=== PATIENT | female | born 1945 | race Caucasian/White ===

== ENCOUNTER 2017-03-31 09:53 | Inpatient (IN) | payer MEDICARE, MEDICAID ==
[~2017-03-31] VITALS: Ht 160 cm; Wt 107.7 kg
[2017-03-31] VITALS (30 sets, daily range): BP systolic 85–125; BP diastolic 22–101
[2017-03-31 10:27] LABS: APPEARANCE,URINE SLIGHTLY CLOUDY; KETONES,URINE NEGATIVE (NEGATIVE); LEUKOCYTE ESTERASE ,URINE 3+ (NEGATIVE); NITRITE,URINE NEGATIVE (NEGATIVE); PH,URINE 8 (4.5-8.0); PROTEIN,URINE 3+ (NEGATIVE); UROBILINOGEN,URINE 1 MG/DL (0.0-1.0)
[2017-03-31] MEDS ORDERED: Acetaminophen 650 MG SUPP RECTAL ONE ×2 (10:28→10:30)
[2017-03-31] MEDS ORDERED: VALPROIC ACID250 MG GT (10:37)
[2017-03-31] MEDS ORDERED: LEVOTHYROXINE50 MCG GT (10:37)
[2017-03-31] MEDS ORDERED: FUROSEMIDE20 M1 GT (10:37)
[2017-03-31] MEDS ORDERED: METOCLOPRA10 MG/10 M GT (10:37)
[2017-03-31] MEDS ORDERED: VIMPAT50 MG GT (10:37)
[2017-03-31] MEDS ORDERED: FAMOTIDINE20 MG GT (10:37)
[2017-03-31] MEDS ORDERED: FLONASE ALLERG9.9 ML NS (10:37)
--- NOTE | 2017-03-31 10:37 | Emergency Room Report ---
History of Present Illness General Chief Complaint: Altered Level of Consciousness Source: Medical Record, EMS Present Illness HPI 72-year-old female presents ED for evaluation. Per EMS patient noted to be more altered and usual this morning with fever and a low O2 saturation on room air. Patient is placed on nonrebreather. Patient is nonverbal at baseline. Has history of encephalopathy and quadriplegia. Patient has history of chronic hypoxia and respiratory failure with history of bilateral pneumonias. Upon arrival patient is a provide any additional history. No other aggravating relieving factors. No other associated symptoms Allergies: Coded Allergies: CEFTRIAXONE (Verified Allergy, Unknown, 03/31/17) PENICILLINS (Verified Allergy, Unknown, 03/31/17) SULFA (SULFONAMIDE ANTIBIOTICS) (Verified Allergy, Unknown, 03/31/17) TAZOBACTAM (Verified Allergy, Unknown, 03/31/17) Patient History Past Medical History: other - quadriplegia, encephalopathy Past Surgical History: other - Gtube Pertinent Family History: none Social History: Denies: alcohol use, drug use, smoking Last Menstrual Period: na Now: No Immunizations: UTD Reviewed Nursing Documentation: PMH: Agreed, PSxH: Agreed Nursing Documentation-PMH Past Medical History: No History, Except For Hx Gastrointestinal Problems: Yes - gtube, CDIFF Hx Neurological Problems: Yes - quadriplegia, encephalopathy, multiple sclerosis Hx Seizures: Yes Review of Systems All Other Systems: negative except mentioned in HPI Physical Exam Vital Signs Date Time Temp Pulse Resp B/P Pulse Ox O2 Delivery O2 Flow Rate FiO2 03/31/17 09:48 125 42 133/98 95 Non-Rebreather 03/31/17 10:00 60 Sp02 EP Interpretation: reviewed, normal General Appearance: mild distress, lethargic Head: normocephalic Eyes: bilateral eye PERRL, bilateral eye normal inspection ENT: normal ENT inspection Neck: normal inspection Respiratory: accessory muscle use, crackles Cardiovascular #1: tachycardia Gastrointestinal: normal inspection, other - gtube Rectal: deferred Genitourinary: no CVA tenderness Musculoskeletal: normal inspection Neurologic: other - nonverbal. altered Psychiatric: other - nonverbal. altered Skin: normal inspection Lymphatic: normal inspection Procedures Critical Care Time Critical Care Time i. I feel this is a highly complex case requiring extensive working including EKG/Rhythm strip, Xray/CT/US, Blood/urine lab work, repeat exams while in ED, and administration of strong opiates/narcotics for pain control, admission to hospital or close patient follow up. Total time: 30 min bedside evaluation and treatment excludes procedures (EKG). Reason for critical care: hypoxic, AMS, hypotensive Possible complications: hypotension, hypertension, IL, shock, arrhythmias, metabolic acidosis, end organ damage, respiratory failure. Interventions: labs, ivfs, ekg, cxr, bipap. abx. central line, pressors Course: Patient brought in respiratory distress. History of hypoxia. Patient placed on BiPAP. ABG shows significant hypoxia. Lactic acid elevated. UA positive. Despite IV fluid bolus patient remains hypotensive. Central line placed. Pressors started. Antibiotics given Consultations: nursing staff, EMS, family Performed by: Dr Vernon Tolerated well condition = critical j. because of unstable vital signs this patient had a condition that could potentially threaten life or limb. I feel this is a critical patient who required my full attention while patient was considered critical. Total Critical Care Time excluding procedures was greater than 35 minutes Central Line Central Line : Consent: Emergent Central Line Lumen: triple Maximal Sterile Barrier Tech: yes cap, yes mask, yes sterile gown, yes sterile gloves, yes large sterile sheet, yes hand hygiene, yes chlorhexidine prep Central Line Postion: femoral (R) Anesthesia: Lidocaine Complications: none Central Line Post Position: sutured, good blood return Attempts: One Patient Tolerated: Well Complications: None Medical Decision Making Diagnostic Impression: Primary Impression: Hypoxia Additional Impressions: Septic shock UTI (urinary tract infection) Qualified Codes: N39.0 - Urinary tract infection, site not specified Pneumonia Qualified Codes: J18.1 - Lobar pneumonia, unspecified organism Altered level of consciousness ARF (acute renal failure) Qualified Codes: N17.9 - Acute kidney failure, unspecified ER Course Hospital Course 72-year-old F presenting to ED with respiratory distress, altered Differential diagnoses include: Pneumonia, CHF exacerbation, pneumothorax, fluid overload Clinical course Patient placed on stretcher. On court monitor with hypoxia on room air and tachycardia. After initial history and physical, I ordered BIPAP. I ordered labs, IV fluids, EKG, chest x-ray, blood cultures, UA. Labs -no leukocytosis, hemoglobin/hematocrit stable, Na high, BUN/Cr elevated, lactate > 4, troponins negative CXR - R midlung infiltrate EKG - sinus tachycardia, no acute changes interpreted by me ABG shows hypoxia abx given. Despite fluid boluses patient remained hypotensive. Central line place. Pressor started Case discussed with Dr. Recio and he agreed to the patient to his service for further care and support I feel this is a highly complex case requiring extensive working including EKG/ Rhythm strip, Xray/CT/US, Blood/urine lab work, repeat exams while in ED, and administration of strong opiates/narcotics for pain control, admission to hospital or close patient follow up. Diagnosis - hypoxia, septic shock, UTI, pneumonia, ALOC, ARF Patient admitted to ICU in critical condition Labs Test 03/31/17 10:01 03/31/17 10:14 03/31/17 10:43 03/31/17 13:00 Urine Color Yellow Urine Appearance Slightly cloudy Urine pH 8 (4.5-8.0) Urine Specific [place] 1.020 (1.005-1.035) Urine Protein 3+ (NEGATIVE) Urine Glucose (UA) Negative (NEGATIVE) Urine Ketones Negative (NEGATIVE) Urine Occult Blood 4+ (NEGATIVE) Urine Nitrite Negative (NEGATIVE) Urine Bilirubin Negative (NEGATIVE) Urine Urobilinogen 1 MG/DL (0.0-1.0) Urine Leukocyte Esterase 3+ (NEGATIVE) Urine RBC 10-15 /HPF (0 - 2) Urine WBC Tntc /HPF (0 - 2) Urine Squamous Epithelial Cells Few /LPF (NONE/OCC) Urine Bacteria Many /HPF (NONE) White Blood Count 6.5 K/UL (4.8-10.8) Red Blood Count 4.33 M/UL (4.20-5.40) Hemoglobin 14.7 G/DL (12.0-16.0) Hematocrit 48.7 % (37.0-47.0) Mean Corpuscular Volume 112 FL (80-99) Mean Corpuscular Hemoglobin 33.9 PG (27.0-31.0) Mean Corpuscular Hemoglobin Concent 30.2 G/DL (32.0-36.0) Red Cell Distribution Width 14.8 % (11.6-14.8) Platelet Count 140 K/UL (150-450) Mean Platelet Volume 16.5 FL (6.5-10.1) Neutrophils (%) (Auto) % (45.0-75.0) Lymphocytes (%) (Auto) % (20.0-45.0) Monocytes (%) (Auto) % (1.0-10.0) Eosinophils (%) (Auto) % (0.0-3.0) Basophils (%) (Auto) % (0.0-2.0) Differential Total Cells Counted 100 Neutrophils % (Manual) 56 % (45-75) Lymphocytes % (Manual) 31 % (20-45) Monocytes % (Manual) 8 % (1-10) Eosinophils % (Manual) 0 % (0-3) Basophils % (Manual) 0 % (0-2) Band Neutrophils 5 % (0-8) Nucleated Red Blood Cells 2 /100 WBC Platelet Estimate Decreased Platelet Morphology Normal Macrocytosis 2+ Sodium Level 166 mEQ/L (135-145) Potassium Level 3.4 mEQ/L (3.4-4.9) Chloride Level 117 mEQ/L (98-107) Carbon Dioxide Level 33 mEQ/L (20-30) Anion Gap 16 (5-15) Blood Urea Nitrogen 112 mg/dL (7-23) Creatinine 2.2 mg/dL (0.5-0.9) Estimat Glomerular Filtration Rate mL/min (>60) Glucose Level 201 mg/dL (74-106) Lactic Acid Level 4.60 mmol/L (0.66-2.22) 3.60 mmol/L (0.66-2.22) Calcium Level 9.2 mg/dL (8.6-10.2) Total Bilirubin 0.4 mg/dL (0.0-1.2) Aspartate Amino Transf (AST/SGOT) 35 U/L (5-40) Alanine Aminotransferase (ALT/SGPT) 11 U/L (3-33) Alkaline Phosphatase 34 U/L (35-104) Total Creatine Kinase 451 U/L (26-140) Creatine Kinase MB < 1.5 ng/mL (< 3.8) Creatine Kinase MB Relative Index Troponin I < 0.30 ng/mL (<=0.30) Pro-B-Type Natriuretic Peptide 2610 pg/mL (0-125) Total Protein 8.1 g/dL (6.6-8.7) Albumin 3.1 g/dL (3.5-5.2) Globulin 5.0 g/dL Albumin/Globulin Ratio 0.6 (1.0-2.7) Arterial Blood pH 7.482 (7.350-7.450) Arterial Blood Partial Pressure CO2 39.5 mmHg (35.0-45.0) Arterial Blood Partial Pressure O2 68.1 mmHg (75.0-100.0) Arterial Blood HCO3 28.9 mmol/L (22.0-26.0) Arterial Blood Oxygen Saturation 93.2 % (92.0-98.0) Arterial Blood Base Excess 5.1 Neil Test Positive EKG Diagnostic Results Rate: tachycardiac Rhythm: NSR ST Segments: no acute changes ASA given to the pt in ED: No Rhythm Strip Diag. Results EP Interpretation: yes Rhythm: NSR, no PVC's, no ectopy Chest X-Ray Diagnostic Results Chest X-Ray Ordered: Yes # of Views/Limited/Complete: 1 View Interpretation: no pneumothorax, no acute cardiopulmonary disease, other - R upper infiltrate. bilateral effusion Indication: Shortness of Breath Impression: Other - pneumonia, effusion Date Electronically Signed: Mar 31, 2017 Time Electronically Signed: 10:36 Interpreting ER Physician: Ze Vernon MD Last Vital Signs Date Time Temp Pulse Resp B/P Pulse Ox O2 Delivery O2 Flow Rate FiO2 03/31/17 10:00 124 45 Bi-pap 03/31/17 10:00 60 03/31/17 09:55 121/80 94 Status: improved Disposition: ADMITTED INPATIENT Condition: Critical Referrals: NON PHYSICIAN (PCP) ZE VERNON M.D. Mar 31, 2017 10:37
[2017-03-31] MEDS ORDERED: IMODIUM2 MG/10 ML GT (10:38)
[2017-03-31] MEDS ORDERED: ALBUTEROL2.5 MG/3 M INH (10:38)
[2017-03-31] MEDS ORDERED: ZOFRAN4 M3 GT (10:38)
[2017-03-31] MEDS ORDERED: ACETAMINOP160 MG/54 GT (10:38)
[2017-03-31] MEDS ORDERED: HYDRALAZINE HCL10 MG GT (10:38)
[2017-03-31 10:44] LABS: MEAN CORPUSCULAR HEMOGLOBIN 33.9 PG (27.0-31.0); MEAN CORPUSCULAR HGB CONC 30.2 G/DL (32.0-36.0); MEAN CORPUSCULAR VOLUME 112 FL (80-99); MEAN PLATELET VOLUME 16.5 FL (6.5-10.1); PLATELET COUNT 140 K/UL (150-450); RED BLOOD COUNT 4.33 M/UL (4.20-5.40); RED CELL DISTRIBUTION WIDTH 14.8 % (11.6-14.8); WHITE BLOOD COUNT 6.5 K/UL (4.8-10.8)
[2017-03-31 10:47] LABS: ALANINE AMINOTRANSFERASE 11 U/L (3-33); ALBUMIN/GLOBULIN RATIO 0.6 (1.0-2.7); ANION GAP 16 (5-15); ASPARTATE AMINO TRANSFERASE 35 U/L (5-40); CALCIUM 9.2 mg/dL (8.6-10.2); CARBON DIOXIDE 33 mEQ/L (20-30); CHLORIDE 117 mEQ/L (98-107); CREATININE 2.2 mg/dL (0.5-0.9); HEMOLYSIS 23; POTASSIUM 3.4 mEQ/L (3.4-4.9); TOTAL PROTEIN 8.1 g/dL (6.6-8.7); TROPONIN I < 0.30 ng/mL (<=0.30)
[2017-03-31 10:48] LABS: BACTERIA,URINE MANY /HPF; SQUAMOUS EPITHELIAL CELL,UR FEW /LPF (NONE/OCC); WBC,URINE TNTC /HPF (0 - 2)
[2017-03-31 10:49] LABS: ABG ALLEN TEST POSITIVE; ABG BASE EXCESS 5.1; ABG PCO2 39.5 mmHg (35.0-45.0)
[2017-03-31 10:51] LABS: SODIUM 166 mEQ/L (135-145)
[2017-03-31 10:52] LABS: REFLEX LACTIC ACID YES OR NO YES
[2017-03-31 10:58] LABS: CKMB < 1.5 ng/mL (< 3.8)
[2017-03-31] MEDS ORDERED: Vancomycin 1.5gm/D5W 250ml 325 ML IVPB ONE (11:00)
[2017-03-31] MEDS ORDERED: NS 1000ml 2,600 ML IVLG ONE (11:00)
[2017-03-31 11:06] LABS: BAND NEUTROPHILS % (MANUAL) 5 % (0-8); BASOPHILS % (MANUAL) 0 % (0-2); EOSINOPHILS % (MANUAL) 0 % (0-3); LYMPHOCYTES % (MANUAL) 31 % (20-45); MACROCYTES 2+; NEUTROPHILS % (MANUAL) 56 % (45-75); NUCLEATED RED BLOOD CELLS 2 /100 WBC; PLATELET ESTIMATE DECREASED; PLATELET MORPHOLOGY NORMAL; TOTAL CELLS COUNTED 100
--- NOTE | 2017-03-31 12:23 | Diagnostic Imaging Report ---
Indication: SOB, chest pain Technique: One view of the chest Comparison: none Findings: There is atelectasis at the left lung base. There is a faint triangular opacity in the right midlung extending to the periphery. The remainder lungs are clear. The pleural spaces are clear. The heart is upper limits of normal in size. There is inferior subluxation of the right humeral head, probably indicating rotator cuff laxity. There are degenerative changes of the left shoulder. Impression: Faint triangular opacity in the right midlung. Could represent area of infiltrate, atelectasis, less likely mass. Followup chest radiography, possible CT, recommended for further evaluation. Dr. Recio was notified at the time of interpretation Left basilar atelectasis Other findings as noted
[2017-03-31] MEDS ORDERED: Lidocaine 1% MPF 10mg/ml 5ml ONE (15:08)
[2017-03-31] MEDS ORDERED: DOPamine 400mg/250ml 250 ML IV SCH (15:15)
[2017-03-31] MEDS ORDERED: Levophed 4mg/4mL Inj IV ONE ×3 (16:06→16:12)
[2017-03-31] MEDS ORDERED: Albuterol ud Inhalation HHN PRN (16:15)
[2017-03-31] MEDS ORDERED: Heparin 5000 units/ml inj SUBQ SCH ×2 (16:15→21:00)
[2017-03-31] MEDS ORDERED: AZTREONAM IVPB ONE ×2 (21:00)
[2017-03-31] MEDS ORDERED: Lacosamide 50mg tablet ORAL SCH (21:00)
[2017-03-31] MEDS ORDERED: [UNRECOGNIZED DRUG - OTHER] IVPB ONE ×2 (21:00)
[2017-03-31] MEDS: Lacosamide 50mg tablet ORAL SCH (21:37)
[2017-03-31] MEDS: Valproic Acid 250mg/5ml Liquid GT SCH (21:51)
[2017-03-31] MEDS ORDERED: Heparin 5000 units/ml inj IV ONE (22:15)
[2017-03-31] MEDS: Heparin 25,000u/D5W 500ml 500 ML IV SCH (23:16)
[2017-03-31 23:19] LABS: MEAN CORPUSCULAR HEMOGLOBIN 35.8 PG (27.0-31.0); MEAN CORPUSCULAR HGB CONC 31.4 G/DL (32.0-36.0); MEAN CORPUSCULAR VOLUME 114 FL (80-99); MEAN PLATELET VOLUME 14.4 FL (6.5-10.1); PLATELET COUNT 69 K/UL (150-450); RED BLOOD COUNT 2.94 M/UL (4.20-5.40); RED CELL DISTRIBUTION WIDTH 14.4 % (11.6-14.8); WHITE BLOOD COUNT 6.7 K/UL (4.8-10.8)
[2017-04-01] VITALS (82 sets, daily range): BP systolic 57–130; BP diastolic 22–106
--- NOTE | 2017-04-01 | History and Physical Report ---
DATE OF ADMISSION: 03/31/2017 CHIEF COMPLAINT: Respiratory failure, sepsis, and shock. HISTORY OF PRESENT ILLNESS: The patient is an unfortunate 72-year-old female who has a history of seizure disorder. She was discharged from the long-term facility with some altered mentation. On evaluation in the emergency room, the patient was hypotensive and she had a white count of 6000 and she was severely dehydrated with a sodium of 166 and creatinine of 2.2. Lactic acid was 4.6. X-ray showed evidence of pneumonia. In addition, she had evidence of a severe urinary tract infection. The patient is now admitted because of persistent hypotension, for sepsis and shock. PAST MEDICAL HISTORY: As above. PAST SURGICAL HISTORY: Unknown. CURRENT MEDICATIONS: Reconciled and reviewed. ALLERGIES: Include ceftriaxone, penicillin, and sulfa. FAMILY HISTORY: Noncontributory. SOCIAL HISTORY: There is no known history of tobacco, ethanol, or drugs. REVIEW OF SYSTEMS: Review of systems from the patient is unobtainable, as she is nonverbal. PHYSICAL EXAMINATION: VITAL SIGNS: Temperature 98 degrees, pulse 88, respirations 20, and blood pressure 120/43. GENERAL: The patient is chronically appearing female, no apparent distress. She is poorly responsive. NECK: Supple. HEART: Regular rate and rhythm. LUNGS: Clear. ABDOMEN: Soft, nontender, and nondistended. EXTREMITIES: Without clubbing, cyanosis, or edema. The patient has contractures noted. LABORATORY DATA: UA showed too numerous to count WBCs. White count 6, hemoglobin 14, hematocrit 40, and platelet count 140,000. Sodium of 166, potassium 3.4, chloride 117, bicarbonate 33, BUN 112, and creatinine was 2.2. Lactic acid was 4.6. Urine showed too numerous count WBCs. ASSESSMENT: This is an unfortunate elderly female, admitted with complaints of sepsis, shock, respiratory failure, urinary tract infection, pneumonia, severe hyponatremia, and seizure disorder. PLAN: Intravenous antibiotics, respiratory treatments, BiPAP as needed. Aggressive fluid resuscitation. Hypotonic fluids. Continue seizure medications. The patient is critical and guarded. Caden Recio M.D. DR: ERIC JOB#: [id number] CC:
--- NOTE | 2017-04-01 02:15 | Consultation ---
DATE OF CONSULTATION: 03/31/2017 PULMONARY CONSULTATION: REFERRING PHYSICIAN: Caden Recio M.D. HISTORY OF PRESENT ILLNESS: The patient is a 72-year-old female, brought in for altered mental status, low oxygen saturation. The patient was placed on nonrebreather and being admitted for respiratory failure. The patient has history of quadriparesis. The patient with history of pneumonia in the past. Upon arrival, the patient noted to be somewhat short of breath. X-rays obtained notable for right mid lung infiltrate as well as atelectasis. The patient is a very poor historian, difficult to fully assess this patient. The patient has no other associated factors. No falls or chest trauma. The patient does have multiple allergies. At present, the patient is eventually fairly acute in nature. PAST MEDICAL HISTORY: The patient's past medical history notable for quadriplegia, encephalopathy, and G-tube. The patient also has a history of C. diff, history of multiple sclerosis, and history of seizures. MEDICATIONS: Reviewed. ALLERGIES: Reviewed. SOCIAL HISTORY: The patient does not smoke or drink. She is mostly bedbound. She aspirates. REVIEW OF SYSTEMS: Difficult to obtain at this time. PHYSICAL EXAMINATION: GENERAL: The patient is a well-developed female, otherwise in mild distress. Vital signs: 88 RR 33, saturation 100% on current FiO2, T-max 102.4 degrees, and blood pressure 96/40. HEENT: Negative. reduced gag. NECK: Supple. LUNGS: Moderate breath sounds. Minimal air entry. Rhonchi noted diffusely. CARDIAC: S1 and S2. Regular rate and rhythm. ABDOMEN: Soft and nontender. The patient has a G-tube in place . Extremities: No cyanosis or clubbing. noted contractures. Quadriparesis. Neurologic: difficult to assess Laboratory Data: White count 6.5, hematocrit 48, Chemistry, sodium 166, BUN 112, creatinine 2.2. CK 451. Albumin 3.1. Blood gases, pH 7.4, saturations 93%. X-ray as described as above. IMPRESSION: 1. Respiratory failure . 2. Hypoxemia. 3. Evidence of pulmonary infiltrates consistent with pneumonia. 4. Hypotension. 5. Quadriparesis. 6. Bedbound state. 7. At risk for deep venous thrombosis. 8. Gastrostomy tube. 9. Known aspiration. RECOMMENDATIONS: Supportive care. IV antibiotics. Follow up cultures. Recommend follow up x-rays. Recommend interventions hydration and duplex of lower extremity to rule out DVT and heparin subcutaneous for DVT prophylaxis. Case was discussed and reviewed. with nursing. Steve Baker M.D. DR: Blayne JOB#: [id number] CC: ANA PAULA
[2017-04-01] MEDS: Dyna-Hex 2% Top Sol 8oz TOPIC SCH (05:36)
[2017-04-01] MEDS ORDERED: Aztreonam Inj 0.5 GM in D5W 55 ML IVPB SCH (06:00)
[2017-04-01 06:37] LABS: MEAN CORPUSCULAR HEMOGLOBIN 36.3 PG (27.0-31.0); MEAN CORPUSCULAR HGB CONC 32.5 G/DL (32.0-36.0); MEAN CORPUSCULAR VOLUME 111 FL (80-99); PLATELET COUNT 74 K/UL (150-450); RED BLOOD COUNT 2.93 M/UL (4.20-5.40); RED CELL DISTRIBUTION WIDTH 14.7 % (11.6-14.8); WHITE BLOOD COUNT 6.9 K/UL (4.8-10.8)
[2017-04-01 07:04] LABS: ALANINE AMINOTRANSFERASE 8 U/L (3-33); ALBUMIN/GLOBULIN RATIO 0.5 (1.0-2.7); ANION GAP 18 (5-15); ASPARTATE AMINO TRANSFERASE 20 U/L (5-40); CALCIUM 7.9 mg/dL (8.6-10.2); CARBON DIOXIDE 25 mEQ/L (20-30); CHLORIDE 118 mEQ/L (98-107); CREATININE 1.2 mg/dL (0.5-0.9); HEMOLYSIS 14; TOTAL PROTEIN 6.4 g/dL (6.6-8.7)
[2017-04-01 07:05] LABS: POTASSIUM 2.4 mEQ/L (3.4-4.9); SODIUM 161 mEQ/L (135-145)
[2017-04-01 07:06] LABS: REFLEX LACTIC ACID YES OR NO YES
[2017-04-01] MEDS: Heparin 25,000u/D5W 500ml 500 ML IV SCH (07:24)
--- NOTE | 2017-04-01 08:01 | General Progress Note ---
Assessment/Plan Problem List: (1) Seizure disorder ICD Codes: G40.909 - Epilepsy, unspecified, not intractable, without status epilepticus SNOMED: 750052750 (2) ARF (acute renal failure) ICD Codes: N17.9 - Acute kidney failure, unspecified SNOMED: 44667334 Qualifiers: Qualified Codes: N17.9 - Acute kidney failure, unspecified (3) UTI (urinary tract infection) ICD Codes: N39.0 - Urinary tract infection, site not specified SNOMED: 81495973, 99938965 Qualifiers: Qualified Codes: N39.0 - Urinary tract infection, site not specified (4) Pneumonia ICD Codes: J18.9 - Pneumonia, unspecified organism SNOMED: 146925874, 46576953 Qualifiers: Qualified Codes: J18.1 - Lobar pneumonia, unspecified organism (5) Septic shock ICD Codes: A41.9 - Sepsis, unspecified organism; R65.21 - Severe sepsis with septic shock SNOMED: 73561542 (6) Hypoxia ICD Codes: R09.02 - Hypoxemia; R65.21 - Severe sepsis with septic shock SNOMED: 003739147, 06210181 (7) Altered level of consciousness ICD Codes: R40.4 - Transient alteration of awareness SNOMED: 2342187 Status: not improved Assessment/Plan ivf iv abx bipap check abg resp/suctioning as needed hold feeds follow up cultures repeat duplex- ?acute dvt heparinb drip- check hit ab replace k cont sz rx critical and guarded Subjective ROS Limited/Unobtainable: Yes Constitutional: Reports: malaise, weakness HEENT: Reports: no symptoms Cardiovascular: Reports: no symptoms Respiratory: Reports: shortness of breath, sputum Gastrointestinal/Abdominal: Reports: difficulty swallowing Genitourinary: Reports: no symptoms Neurologic/Psychiatric: Reports: pre-existing deficit, seizure Endocrine: Reports: no symptoms Hematologic/Lymphatic: Reports: anemia Allergies: Coded Allergies: CEFTRIAXONE (Verified Allergy, Unknown, 03/31/17) PENICILLINS (Verified Allergy, Unknown, 03/31/17) SULFA (SULFONAMIDE ANTIBIOTICS) (Verified Allergy, Unknown, 03/31/17) TAZOBACTAM (Verified Allergy, Unknown, 03/31/17) All Systems: reviewed and negative except above Subjective in the icu. on high dose pressor. on bipap. poorly responsive. good uop. multiple abx. +venous duplex- now on heparin drip. low plts noted. Objective Last 24 Hour Vital Signs Date Time Temp Pulse Resp B/P Pulse Ox O2 Delivery O2 Flow Rate FiO2 04/01/17 07:00 82 28 111/56 97 Bi-pap 40 04/01/17 06:45 82 28 112/45 97 Bi-pap 40 04/01/17 06:30 84 30 112/45 96 Bi-pap 40 04/01/17 06:15 82 30 106/53 96 Bi-pap 40 04/01/17 06:00 83 30 114/36 96 Bi-pap 40 04/01/17 05:45 84 30 103/32 96 Bi-pap 40 04/01/17 05:36 88/29 04/01/17 05:30 84 30 88/29 96 Bi-pap 40 04/01/17 05:15 80 30 88/29 96 Bi-pap 40 04/01/17 05:02 81 33 97 Facial 40 04/01/17 05:00 80 30 94/31 96 Bi-pap 40 04/01/17 04:45 82 30 89/27 96 Bi-pap 40 04/01/17 04:30 86 30 113/45 96 Bi-pap 40 04/01/17 04:15 91 30 105/41 96 Bi-pap 40 04/01/17 04:00 84 04/01/17 04:00 85 30 106/38 96 Bi-pap 40 04/01/17 04:00 40 04/01/17 03:45 84 30 85/30 96 Bi-pap 40 04/01/17 03:30 85 30 109/34 96 Bi-pap 40 04/01/17 03:25 91 32 100 Facial 40 04/01/17 03:15 84 30 94/51 96 Bi-pap 40 04/01/17 03:00 84 30 94/30 96 Bi-pap 40 04/01/17 02:45 84 30 96/30 96 Bi-pap 40 04/01/17 02:30 84 30 116/48 96 Bi-pap 40 04/01/17 02:15 87 30 97/39 96 Bi-pap 40 04/01/17 02:00 88 28 101/42 94 Bi-pap 40 04/01/17 01:45 87 29 108/82 97 Bi-pap 40 04/01/17 01:30 85 30 91/38 96 Bi-pap 40 04/01/17 01:15 87 28 105/33 96 Bi-pap 40 04/01/17 01:00 88 29 93/45 96 Bi-pap 40 04/01/17 01:00 94/28 04/01/17 00:55 88 31 98 Facial 40 04/01/17 00:45 84 30 94/31 97 Bi-pap 40 04/01/17 00:30 84 30 94/28 96 Bi-pap 40 04/01/17 00:15 88 29 84/22 96 Bi-pap 40 04/01/17 00:00 85 04/01/17 00:00 84 28 87/27 96 Bi-pap 40 04/01/17 00:00 40 03/31/17 23:45 99.1 88 28 125/40 97 Bi-pap 40 03/31/17 23:30 87 28 125/40 97 Bi-pap 40 03/31/17 23:25 91 31 98 Facial 40 03/31/17 23:15 88 28 89/29 97 Bi-pap 40 03/31/17 23:00 90 28 93/60 97 Bi-pap 40 03/31/17 22:45 90 32 93/60 98 Bi-pap 40 03/31/17 22:30 87 32 100/32 98 Bi-pap 40 03/31/17 22:15 84 32 118/37 98 Bi-pap 40 03/31/17 22:00 87 32 118/36 98 Bi-pap 40 03/31/17 21:45 86 32 106/40 98 Bi-pap 40 03/31/17 21:30 85 32 98/35 98 Bi-pap 40 03/31/17 21:23 101/40 03/31/17 21:15 86 32 101/40 98 Bi-pap 40 03/31/17 21:00 85 32 101/28 98 Bi-pap 40 03/31/17 20:45 86 32 109/22 98 Bi-pap 40 03/31/17 20:43 86 30 99 Facial 40 03/31/17 20:30 84 30 103/28 98 Bi-pap 40 03/31/17 20:15 87 30 108/69 98 Bi-pap 40 03/31/17 20:00 40 03/31/17 20:00 85 03/31/17 20:00 90 30 120/101 98 Bi-pap 50 03/31/17 19:45 87 28 106/43 98 Bi-pap 50 03/31/17 19:30 99.1 85 30 105/36 99 Bi-pap 50 03/31/17 18:40 93 28 98 Facial 50 03/31/17 18:24 91 25 104/39 99 Bi-pap 50 03/31/17 18:00 98.1 92 25 114/41 96 Bi-pap 50 03/31/17 17:30 98.3 88 30 120/43 96 Bi-pap 50 03/31/17 17:00 86 30 102/46 99 Bi-pap 50 03/31/17 16:45 85 27 115/76 94 Bi-pap 60 03/31/17 16:40 86 27 100 Facial 50 03/31/17 16:31 116/44 03/31/17 16:30 98.0 88 27 116/35 97 Bi-pap 60 03/31/17 16:26 83/38 03/31/17 16:13 81/57 03/31/17 16:00 113 29 85/45 99 Bi-pap 60 03/31/17 15:58 91/33 03/31/17 15:43 90/33 03/31/17 15:30 97.2 89 29 90/33 98 Bi-pap 03/31/17 14:50 88 33 100 Facial 60 03/31/17 14:30 98.3 86 30 94/41 99 Bi-pap 60 03/31/17 13:55 84 24 100/41 99 Bi-pap 60 03/31/17 13:00 98.2 88 31 104/46 98 Bi-pap 03/31/17 12:50 87 35 98 Facial 60 03/31/17 11:21 102.4 103 34 96/40 99 Bi-pap 60 03/31/17 11:20 103 24 100 Facial 60 03/31/17 11:06 98.2 03/31/17 10:00 120 34 97 Facial 60 03/31/17 10:00 124 45 Bi-pap 03/31/17 10:00 120 34 Bi-pap 60 03/31/17 10:00 60 03/31/17 09:55 124 45 121/80 94 Bi-pap 03/31/17 09:48 125 42 133/98 95 Non-Rebreather Intake and Output 03/31/17 04/01/17 19:00 07:00 Intake Total 3105 ml 2260.592 ml Output Total 1050 ml Balance 2055 ml 2260.592 ml Intake IV Total 3105 ml 2140.592 ml Other 120 ml Output Urine Total 1050 ml # Voids 50 720 # Bowel Movements 1 3 Laboratory Tests 03/31/17 10:01: Urine Color Yellow, Urine Appearance Slightly cloudy, Urine pH 8, Urine Specific [place] 1.020, Urine Protein 3+H, Urine Glucose (UA) Negative, Urine Ketones Negative, Urine Occult Blood 4+H, Urine Nitrite Negative, Urine Bilirubin Negative, Urine Urobilinogen 1H, Urine Leukocyte Esterase 3+H, Urine RBC 10-15H, Urine WBC TntcH, Urine Squamous Epithelial Cells Few, Urine Bacteria ManyH 03/31/17 10:14: White Blood Count 6.5, Red Blood Count 4.33, Hemoglobin 14.7, Hematocrit 48.7H, Mean Corpuscular Volume 112H, Mean Corpuscular Hemoglobin 33.9H, Mean Corpuscular Hemoglobin Concent 30.2L, Red Cell Distribution Width 14.8, Platelet Count 140L, Mean Platelet Volume 16.5H, Neutrophils (%) (Auto) , Lymphocytes (%) (Auto) , Monocytes (%) (Auto) , Eosinophils (%) (Auto) , Basophils (%) (Auto) , Differential Total Cells Counted 100, Neutrophils % ( Manual) 56, Lymphocytes % (Manual) 31, Monocytes % (Manual) 8, Eosinophils % ( Manual) 0, Basophils % (Manual) 0, Band Neutrophils 5, Nucleated Red Blood Cells 2, Platelet Estimate DecreasedL, Platelet Morphology Normal, Macrocytosis 2+, Sodium Level 166*H, Potassium Level 3.4, Chloride Level 117H, Carbon Dioxide Level 33H, Anion Gap 16H, Blood Urea Nitrogen 112H, Creatinine 2.2H, Estimat Glomerular Filtration Rate , Glucose Level 201H, Lactic Acid Level 4.60H , Calcium Level 9.2, Total Bilirubin 0.4, Aspartate Amino Transf (AST/SGOT) 35, Alanine Aminotransferase (ALT/SGPT) 11, Alkaline Phosphatase 34L, Total Creatine Kinase 451H, Creatine Kinase MB < 1.5, Creatine Kinase MB Relative Index , Troponin I < 0.30, Pro-B-Type Natriuretic Peptide 2610H, Total Protein 8.1, Albumin 3.1L, Globulin 5.0, Albumin/Globulin Ratio 0.6L, Valproic Acid ( Depakene) Level 26L 03/31/17 10:43: Arterial Blood pH 7.482H, Arterial Blood Partial Pressure CO2 39.5, Arterial Blood Partial Pressure O2 68.1L, Arterial Blood HCO3 28.9H, Arterial Blood Oxygen Saturation 93.2, Arterial Blood Base Excess 5.1, Neil Test Positive 03/31/17 13:00: Lactic Acid Level 3.60H 03/31/17 23:00: White Blood Count 6.7, Red Blood Count 2.94L, Hemoglobin 10.5L, Hematocrit 33.5# L, Mean Corpuscular Volume 114H, Mean Corpuscular Hemoglobin 35.8H, Mean Corpuscular Hemoglobin Concent 31.4L, Red Cell Distribution Width 14.4, Platelet Count 69#L, Mean Platelet Volume 14.4H, Neutrophils (%) (Auto) , Lymphocytes (%) (Auto) , Monocytes (%) (Auto) , Eosinophils (%) (Auto) , Basophils (%) (Auto) , Activated Partial Thromboplast Time 34H 04/01/17 05:25: White Blood Count 6.9, Red Blood Count 2.93L, Hemoglobin 10.6L, Hematocrit 32.6L , Mean Corpuscular Volume 111H, Mean Corpuscular Hemoglobin 36.3H, Mean Corpuscular Hemoglobin Concent 32.5, Red Cell Distribution Width 14.7, Platelet Count 74L, Mean Platelet Volume 15.0H, Neutrophils (%) (Auto) , Lymphocytes (%) (Auto) , Monocytes (%) (Auto) , Eosinophils (%) (Auto) , Basophils (%) (Auto) , Activated Partial Thromboplast Time 100H, Neutrophils % (Manual) [Pending], Lymphocytes % (Manual) [Pending], Platelet Estimate [Pending], Platelet Morphology [Pending], Sodium Level 161*H, Potassium Level 2.4*L, Chloride Level 118H, Carbon Dioxide Level 25, Anion Gap 18H, Blood Urea Nitrogen 87#H, Creatinine 1.2H, Estimat Glomerular Filtration Rate , Glucose Level 137H, Lactic Acid Level 3.70H, Calcium Level 7.9L, Total Bilirubin 0.5, Aspartate Amino Transf (AST/SGOT) 20, Alanine Aminotransferase (ALT/SGPT) 8, Alkaline Phosphatase 38, Total Protein 6.4L, Albumin 2.3L, Globulin 4.1, Albumin/ Globulin Ratio 0.5L Height (Feet): 5 Height (Inches): 3.00 Weight (Pounds): 205 General Appearance: WD/WN, lethargic, confused Neck: supple Cardiovascular: regular rhythm Respiratory/Chest: accessory muscle use, crackles/rales, rhonchi - bilaterally Abdomen: normal bowel sounds, non tender, soft, no organomegaly Edema: mild edema Neurologic: unresponsive, aphasia BREANNE SORIA Apr 01, 2017 08:01
--- NOTE | 2017-04-01 08:28 | Critical Care Progress Note ---
Assessment/Plan Assessment/Plan IMPRESSION: 1. Respiratory failure . 2. Hypoxemia. 3. Evidence of pulmonary infiltrates consistent with pneumonia. 4. Hypotension. 5. Quadriparesis. 6. Bedbound state. 7. At risk for deep venous thrombosis. 8. Gastrostomy tube. 9. Known aspiration. PLAN BIPAP check ABG IV antibiotics IV hydration pressors as needed monitor hemodynamics monitor oxygen needs ICU care as is critical at present close monitoring required medications/laboratory data/nursing notes/ICU care reviewed in detail note reviewed and edited care discussed with RN and RT ICU time spent 35 minutes Critical Care - Subjective Interval Events: in ICU started on Heparin on BIPAP on pressors ROS Limited/Unobtainable: Yes Condition: critical EKG Rhythm: Sinus Rhythm I&O: Intake and Output 03/31/17 04/01/17 19:00 07:00 Intake Total 3105 ml 2260.592 ml Output Total 1050 ml Balance 2055 ml 2260.592 ml Intake IV Total 3105 ml 2140.592 ml Other 120 ml Output Urine Total 1050 ml # Voids 50 720 # Bowel Movements 1 3 Critical Care - Objective CXR: patchy pneumonia Last 24 Hour Vital Signs Date Time Temp Pulse Resp B/P Pulse Ox O2 Delivery O2 Flow Rate FiO2 04/01/17 07:00 82 28 111/56 97 Bi-pap 40 04/01/17 06:45 82 28 112/45 97 Bi-pap 40 04/01/17 06:30 84 30 112/45 96 Bi-pap 40 04/01/17 06:15 82 30 106/53 96 Bi-pap 40 04/01/17 06:00 83 30 114/36 96 Bi-pap 40 04/01/17 05:45 84 30 103/32 96 Bi-pap 40 04/01/17 05:36 88/29 04/01/17 05:30 84 30 88/29 96 Bi-pap 40 04/01/17 05:15 80 30 88/29 96 Bi-pap 40 04/01/17 05:02 81 33 97 Facial 40 04/01/17 05:00 80 30 94/31 96 Bi-pap 40 04/01/17 04:45 82 30 89/27 96 Bi-pap 40 04/01/17 04:30 86 30 113/45 96 Bi-pap 40 04/01/17 04:15 91 30 105/41 96 Bi-pap 40 04/01/17 04:00 84 04/01/17 04:00 85 30 106/38 96 Bi-pap 40 04/01/17 04:00 40 04/01/17 03:45 84 30 85/30 96 Bi-pap 40 04/01/17 03:30 85 30 109/34 96 Bi-pap 40 04/01/17 03:25 91 32 100 Facial 40 04/01/17 03:15 84 30 94/51 96 Bi-pap 40 04/01/17 03:00 84 30 94/30 96 Bi-pap 40 04/01/17 02:45 84 30 96/30 96 Bi-pap 40 04/01/17 02:30 84 30 116/48 96 Bi-pap 40 04/01/17 02:15 87 30 97/39 96 Bi-pap 40 04/01/17 02:00 88 28 101/42 94 Bi-pap 40 04/01/17 01:45 87 29 108/82 97 Bi-pap 40 04/01/17 01:30 85 30 91/38 96 Bi-pap 40 04/01/17 01:15 87 28 105/33 96 Bi-pap 40 04/01/17 01:00 88 29 93/45 96 Bi-pap 40 04/01/17 01:00 94/28 04/01/17 00:55 88 31 98 Facial 40 04/01/17 00:45 84 30 94/31 97 Bi-pap 40 04/01/17 00:30 84 30 94/28 96 Bi-pap 40 04/01/17 00:15 88 29 84/22 96 Bi-pap 40 04/01/17 00:00 85 04/01/17 00:00 84 28 87/27 96 Bi-pap 40 04/01/17 00:00 40 03/31/17 23:45 99.1 88 28 125/40 97 Bi-pap 40 03/31/17 23:30 87 28 125/40 97 Bi-pap 40 03/31/17 23:25 91 31 98 Facial 40 03/31/17 23:15 88 28 89/29 97 Bi-pap 40 03/31/17 23:00 90 28 93/60 97 Bi-pap 40 03/31/17 22:45 90 32 93/60 98 Bi-pap 40 03/31/17 22:30 87 32 100/32 98 Bi-pap 40 03/31/17 22:15 84 32 118/37 98 Bi-pap 40 03/31/17 22:00 87 32 118/36 98 Bi-pap 40 03/31/17 21:45 86 32 106/40 98 Bi-pap 40 03/31/17 21:30 85 32 98/35 98 Bi-pap 40 03/31/17 21:23 101/40 03/31/17 21:15 86 32 101/40 98 Bi-pap 40 03/31/17 21:00 85 32 101/28 98 Bi-pap 40 03/31/17 20:45 86 32 109/22 98 Bi-pap 40 03/31/17 20:43 86 30 99 Facial 40 03/31/17 20:30 84 30 103/28 98 Bi-pap 40 03/31/17 20:15 87 30 108/69 98 Bi-pap 40 03/31/17 20:00 40 03/31/17 20:00 85 03/31/17 20:00 90 30 120/101 98 Bi-pap 50 03/31/17 19:45 87 28 106/43 98 Bi-pap 50 03/31/17 19:30 99.1 85 30 105/36 99 Bi-pap 50 03/31/17 18:40 93 28 98 Facial 50 03/31/17 18:24 91 25 104/39 99 Bi-pap 50 03/31/17 18:00 98.1 92 25 114/41 96 Bi-pap 50 03/31/17 17:30 98.3 88 30 120/43 96 Bi-pap 50 03/31/17 17:00 86 30 102/46 99 Bi-pap 50 03/31/17 16:45 85 27 115/76 94 Bi-pap 60 03/31/17 16:40 86 27 100 Facial 50 17 16:31 116/44 17 16:30 98.0 88 27 116/35 97 Bi-pap 60 03/31/17 16:26 83/38 14/17 16:13 81/57 17 16:00 113 29 85/45 99 Bi-pap 60 14/17 15:58 91/33 14/17 15:43 90/33 14/17 15:30 97.2 89 29 90/33 98 Bi-pap 6/14/17 14:50 88 33 100 Facial 60 03/31/17 14:30 98.3 86 30 94/41 99 Bi-pap 60 03/31/17 13:55 84 24 100/41 99 Bi-pap 60 03/31/17 13:00 98.2 88 31 104/46 98 Bi-pap 03/31/17 12:50 87 35 98 Facial 60 03/31/17 11:21 102.4 103 34 96/40 99 Bi-pap 60 03/31/17 11:20 103 24 100 Facial 60 03/31/17 11:06 98.2 03/31/17 10:00 120 34 97 Facial 60 03/31/17 10:00 124 45 Bi-pap 03/31/17 10:00 120 34 Bi-pap 60 03/31/17 10:00 60 03/31/17 09:55 124 45 121/80 94 Bi-pap 03/31/17 09:48 125 42 133/98 95 Non-Rebreather Labs: Labs Test 03/31/17 10:01 03/31/17 10:14 03/31/17 10:43 03/31/17 13:00 Urine Color Yellow Urine Appearance Slightly cloudy Urine pH 8 (4.5-8.0) Urine Specific [place] 1.020 (1.005-1.035) Urine Protein 3+ (NEGATIVE) Urine Glucose (UA) Negative (NEGATIVE) Urine Ketones Negative (NEGATIVE) Urine Occult Blood 4+ (NEGATIVE) Urine Nitrite Negative (NEGATIVE) Urine Bilirubin Negative (NEGATIVE) Urine Urobilinogen 1 MG/DL (0.0-1.0) Urine Leukocyte Esterase 3+ (NEGATIVE) Urine RBC 10-15 /HPF (0 - 2) Urine WBC Tntc /HPF (0 - 2) Urine Squamous Epithelial Cells Few /LPF (NONE/OCC) Urine Bacteria Many /HPF (NONE) White Blood Count 6.5 K/UL (4.8-10.8) Red Blood Count 4.33 M/UL (4.20-5.40) Hemoglobin 14.7 G/DL (12.0-16.0) Hematocrit 48.7 % (37.0-47.0) Mean Corpuscular Volume 112 FL (80-99) Mean Corpuscular Hemoglobin 33.9 PG (27.0-31.0) Mean Corpuscular Hemoglobin Concent 30.2 G/DL (32.0-36.0) Red Cell Distribution Width 14.8 % (11.6-14.8) Platelet Count 140 K/UL (150-450) Mean Platelet Volume 16.5 FL (6.5-10.1) Neutrophils (%) (Auto) % (45.0-75.0) Lymphocytes (%) (Auto) % (20.0-45.0) Monocytes (%) (Auto) % (1.0-10.0) Eosinophils (%) (Auto) % (0.0-3.0) Basophils (%) (Auto) % (0.0-2.0) Differential Total Cells Counted 100 Neutrophils % (Manual) 56 % (45-75) Lymphocytes % (Manual) 31 % (20-45) Monocytes % (Manual) 8 % (1-10) Eosinophils % (Manual) 0 % (0-3) Basophils % (Manual) 0 % (0-2) Band Neutrophils 5 % (0-8) Nucleated Red Blood Cells 2 /100 WBC Platelet Estimate Decreased Platelet Morphology Normal Macrocytosis 2+ Sodium Level 166 mEQ/L (135-145) Potassium Level 3.4 mEQ/L (3.4-4.9) Chloride Level 117 mEQ/L (98-107) Carbon Dioxide Level 33 mEQ/L (20-30) Anion Gap 16 (5-15) Blood Urea Nitrogen 112 mg/dL (7-23) Creatinine 2.2 mg/dL (0.5-0.9) Estimat Glomerular Filtration Rate mL/min (>60) Glucose Level 201 mg/dL (74-106) Lactic Acid Level 4.60 mmol/L (0.66-2.22) 3.60 mmol/L (0.66-2.22) Calcium Level 9.2 mg/dL (8.6-10.2) Total Bilirubin 0.4 mg/dL (0.0-1.2) Aspartate Amino Transf (AST/SGOT) 35 U/L (5-40) Alanine Aminotransferase (ALT/SGPT) 11 U/L (3-33) Alkaline Phosphatase 34 U/L (35-104) Total Creatine Kinase 451 U/L (26-140) Creatine Kinase MB < 1.5 ng/mL (< 3.8) Creatine Kinase MB Relative Index Troponin I < 0.30 ng/mL (<=0.30) Pro-B-Type Natriuretic Peptide 2610 pg/mL (0-125) Total Protein 8.1 g/dL (6.6-8.7) Albumin 3.1 g/dL (3.5-5.2) Globulin 5.0 g/dL Albumin/Globulin Ratio 0.6 (1.0-2.7) Valproic Acid (Depakene) Level 26 ug/mL (50-100) Arterial Blood pH 7.482 (7.350-7.450) Arterial Blood Partial Pressure CO2 39.5 mmHg (35.0-45.0) Arterial Blood Partial Pressure O2 68.1 mmHg (75.0-100.0) Arterial Blood HCO3 28.9 mmol/L (22.0-26.0) Arterial Blood Oxygen Saturation 93.2 % (92.0-98.0) Arterial Blood Base Excess 5.1 Neil Test Positive Test 03/31/17 23:00 04/01/17 05:25 White Blood Count 6.7 K/UL (4.8-10.8) 6.9 K/UL (4.8-10.8) Red Blood Count 2.94 M/UL (4.20-5.40) 2.93 M/UL (4.20-5.40) Hemoglobin 10.5 G/DL (12.0-16.0) 10.6 G/DL (12.0-16.0) Hematocrit 33.5 % (37.0-47.0) 32.6 % (37.0-47.0) Mean Corpuscular Volume 114 FL (80-99) 111 FL (80-99) Mean Corpuscular Hemoglobin 35.8 PG (27.0-31.0) 36.3 PG (27.0-31.0) Mean Corpuscular Hemoglobin Concent 31.4 G/DL (32.0-36.0) 32.5 G/DL (32.0-36.0) Red Cell Distribution Width 14.4 % (11.6-14.8) 14.7 % (11.6-14.8) Platelet Count 69 K/UL (150-450) 74 K/UL (150-450) Mean Platelet Volume 14.4 FL (6.5-10.1) 15.0 FL (6.5-10.1) Neutrophils (%) (Auto) % (45.0-75.0) % (45.0-75.0) Lymphocytes (%) (Auto) % (20.0-45.0) % (20.0-45.0) Monocytes (%) (Auto) % (1.0-10.0) % (1.0-10.0) Eosinophils (%) (Auto) % (0.0-3.0) % (0.0-3.0) Basophils (%) (Auto) % (0.0-2.0) % (0.0-2.0) Activated Partial Thromboplast Time 34 SEC (23-33) 100 SEC (23-33) Sodium Level 161 mEQ/L (135-145) Potassium Level 2.4 mEQ/L (3.4-4.9) Chloride Level 118 mEQ/L (98-107) Carbon Dioxide Level 25 mEQ/L (20-30) Anion Gap 18 (5-15) Blood Urea Nitrogen 87 mg/dL (7-23) Creatinine 1.2 mg/dL (0.5-0.9) Estimat Glomerular Filtration Rate mL/min (>60) Glucose Level 137 mg/dL (74-106) Lactic Acid Level 3.70 mmol/L (0.66-2.22) Calcium Level 7.9 mg/dL (8.6-10.2) Total Bilirubin 0.5 mg/dL (0.0-1.2) Aspartate Amino Transf (AST/SGOT) 20 U/L (5-40) Alanine Aminotransferase (ALT/SGPT) 8 U/L (3-33) Alkaline Phosphatase 38 U/L (35-104) Total Protein 6.4 g/dL (6.6-8.7) Albumin 2.3 g/dL (3.5-5.2) Globulin 4.1 g/dL Albumin/Globulin Ratio 0.5 (1.0-2.7) Objective: GENERAL: The patient is a well-developed female, on BIPAP HEENT: Negative. sluggish pupils NECK: Supple. no JVD LUNGS: Moderate breath sounds. some Rhonchi noted diffusely. no wheeze CARDIAC: S1 and S2. Regular rate and rhythm.without MRG ABDOMEN: Soft and nontender. The patient has a G-tube in place . no HSM Extremities: No cyanosis or clubbing. noted contractures. Quadriparesis. Micro: Microbiology Date/Time Source Procedure Growth Status 03/31/17 10:01 Urine,Clean Catch Urine Culture - Preliminary Resulted Accucheck: 195 SANCHEZ NAVARRETE Apr 01, 2017 08:28
[2017-04-01] MEDS: Lacosamide 50mg tablet ORAL SCH ×2 (08:40→20:45)
[2017-04-01] MEDS: Valproic Acid 250mg/5ml Liquid GT SCH ×2 (08:40→20:46)
[2017-04-01 08:56] LABS: ABG ALLEN TEST POSITIVE; ABG BASE EXCESS 0.9; ABG PCO2 36.9 mmHg (35.0-45.0)
[2017-04-01] MEDS ORDERED: Amiodarone 150mg/ml 3ml Amp ONE (09:05)
[2017-04-01 10:01] LABS: BAND NEUTROPHILS % (MANUAL) 10 % (0-8); BASOPHILS % (MANUAL) 0 % (0-2); EOSINOPHILS % (MANUAL) 0 % (0-3); LYMPHOCYTES % (MANUAL) 21 % (20-45); NEUTROPHILS % (MANUAL) 66 % (45-75); PLATELET ESTIMATE DECREASED; TOTAL CELLS COUNTED 100
[2017-04-01 10:02] LABS: ANISOCYTOSIS 1+; HYPOCHROMASIA 1+; MACROCYTES 1+
[2017-04-01] MEDS: D5 1/2NS w/KCl 20mEq 1,000 ML IV SCH ×2 (10:20→17:35)
[2017-04-01] MEDS ORDERED: Digoxin 0.5mg/2ml Inj IVP ONE (13:30)
[2017-04-01] MEDS ORDERED: Diltiazem 25mg/5ml IV ONE (14:10)
[2017-04-01] MEDS ORDERED: Vancomycin 1gm in D5W 275ml IVPB SCH (15:00)
[2017-04-01] MEDS ORDERED: Heparin 25,000u/D5W 500ml 500 ML IV SCH (15:15)
[2017-04-01 15:26] LABS: MEAN CORPUSCULAR HEMOGLOBIN 35.6 PG (27.0-31.0); MEAN CORPUSCULAR HGB CONC 31.1 G/DL (32.0-36.0); MEAN CORPUSCULAR VOLUME 115 FL (80-99); MEAN PLATELET VOLUME 14.9 FL (6.5-10.1); PLATELET COUNT 63 K/UL (150-450); RED BLOOD COUNT 2.71 M/UL (4.20-5.40); RED CELL DISTRIBUTION WIDTH 14.1 % (11.6-14.8); WHITE BLOOD COUNT 6.2 K/UL (4.8-10.8)
[2017-04-01] MEDS: Aztreonam Inj 1 GM in D5W 55 ML IVPB SCH ×2 (15:26→22:10)
[2017-04-01 15:49] LABS: ALANINE AMINOTRANSFERASE 8 U/L (3-33); ALBUMIN/GLOBULIN RATIO 0.5 (1.0-2.7); ANION GAP 20 (5-15); ASPARTATE AMINO TRANSFERASE 17 U/L (5-40); CALCIUM 8.1 mg/dL (8.6-10.2); CARBON DIOXIDE 22 mEQ/L (20-30); CHLORIDE 116 mEQ/L (98-107); HEMOLYSIS 3; POTASSIUM 2.8 mEQ/L (3.4-4.9); SODIUM 158 mEQ/L (135-145); TOTAL PROTEIN 6.2 g/dL (6.6-8.7)
[2017-04-01 15:50] LABS: REFLEX LACTIC ACID YES OR NO YES
[2017-04-01] MEDS ORDERED: D5W 275ml ONE (16:06)
[2017-04-01 16:33] LABS: ABG ALLEN TEST POSITIVE; ABG BASE EXCESS -4.3; ABG PCO2 30.7 mmHg (35.0-45.0)
[2017-04-01 17:23] LABS: BAND NEUTROPHILS % (MANUAL) 7 % (0-8); LYMPHOCYTES % (MANUAL) 21 % (20-45); NEUTROPHILS % (MANUAL) 65 % (45-75); TOTAL CELLS COUNTED 100
[2017-04-01 17:24] LABS: BASOPHILS % (MANUAL) 0 % (0-2); EOSINOPHILS % (MANUAL) 0 % (0-3); PLATELET ESTIMATE DECREASED; PLATELET MORPHOLOGY NORMAL
[2017-04-01 17:25] LABS: ANISOCYTOSIS 1+; MACROCYTES 1+
[2017-04-01] MEDS: Acetaminophen Soln 160mg/5ml ORAL PRN (19:50)
--- NOTE | 2017-04-01 20:30 | Consultation ---
DATE OF CONSULTATION: 03/31/2017 REQUESTING PHYSICIAN: Caden Recio M.D. REASON FOR CONSULTATION: Shock. HISTORY OF PRESENT ILLNESS: This is a 72-year-old female residing in a nursing home facility. She was notably withdrawn and altered, sent to the emergency room and noted to be hypotensive. She was noted to have signs of an acute urinary infection and pneumonia and admitted for further care. Low range blood pressure readings have persisted and I have been asked to assist with cardiovascular care. ALLERGIES: The patient has multiple drug allergies that include ceftriaxone, penicillin, and sulfa. PAST MEDICAL HISTORY: Seizure disorder, cerebrovascular disease with dementia, obesity, dysphagia with G-tube, quadriplegia, multiple sclerosis, history of C. difficile colitis. MEDICATIONS: Prior to admission reviewed and reconciled. SOCIAL HISTORY: No record of smoking, alcohol, or substance abuse. REVIEW OF SYSTEMS: Not obtainable from patient due to her presenting condition. Pertinent data from records are reviewed and outlined above. PHYSICAL EXAMINATION: GENERAL: The patient is moderately obese, in mild distress. VITAL SIGNS: Temperature 102.4, blood pressure 90/40, pulse 88, respiratory rate 33. HEENT: Oropharynx clear. NECK: Supple. Obese. Cannot assess jugular venous pressure. LUNGS: With diminished breath sounds. Scattered rhonchi. CARDIAC: Regular rhythm and rate. Normal S1 and S2 with no appreciable murmur. Abdomen is obese soft, nontender. There is a G-tube in place. EXTREMITIES: Revealed contractures, muscle atrophy, quadriparesis, no edema. LABORATORY DATA: White count 6.5, hematocrit 48%. Sodium 166, potassium 3.4, chloride 117, bicarb 33, BUN 112 creatinine 2.2. Pro-natriuretic peptide 2610. Albumin 3.1. Troponin negative. Lactic acid 4.6. IMPRESSION: 1. Critical and guarded. 2. Sepsis. 3. Severe dehydration. 4. Hypovolemia. 5. Shock. 6. Urinary tract infection. 7. Aspiration pneumonia. 8. Hypernatremia. 9. Hyperchloremia. 10. Acute renal failure due to acute tubular necrosis. 11. Chronic diastolic congestive heart failure. 12. Multiple sclerosis. 13. Acute respiratory insufficiency. 14. Healthcare acquired pneumonia. 15. Mild protein-calorie malnutrition. 16. Dysphagia with G-tube. 17. Lactic acidosis. PLAN: 1. Respiratory support. 2. Bronchodilators. 3. BiPAP as needed. 4. Hypotonic IV fluid hydration. 5. Antibiotics with consideration of multiple drug allergies. 6. Consider pressors if inadequate response to intravenous fluids. 7. DVT prophylaxis. 8. Nutrition by G-tube. Nick Gilbert M.D. DR: Anup JOB#: [id number] CC:
--- NOTE | 2017-04-01 20:30 | Progress Note ---
DATE: 04/01/2017 CARDIOLOGY PROGRESS NOTE CRITICAL CARE SUBJECTIVE: Condition has deteriorated. The patient developed worsening respiratory distress, on BiPAP and followed by ventricular tachycardia. A Code Blue was called. The patient was orally intubated. He developed rapid atrial fibrillation, now at a rate of 170. OBJECTIVE: VITAL SIGNS: Blood pressure 111/56, pulse 170, respiratory rate 28 and afebrile. HEENT: Moderate secretions. LUNGS: Coarse rhonchi. HEART: Irregularly irregular rhythm. Rapid rate. Normal S1 and S2. ABDOMEN: Soft. G-tube intact. EXTREMITIES: No edema. NEUROLOGIC: Quadriparesis. LABORATORY AND DIAGNOSTIC DATA: Sodium 161, potassium 2.4, bicarbonate 25, BUN 87, and creatinine 1.2. Albumin 3.3. Lactic acid 3.7. Platelet count 74,000. Venous duplex positive for DVT. IMPRESSION: 1. Status post cardiopulmonary arrest. 2. Rapid atrial fibrillation. 3. Hypokalemia. 4. Lactic acidosis. 5. Sepsis with shock. 6. Acute renal failure, improved. 7. Dehydration. 8. Hypernatremia. 9. Hyperchloremia. 10. Severe protein-calorie malnutrition. 11. Multiple sclerosis. 12. Acute deep vein thrombosis. 13. Thrombocytopenia. PLAN: Ventilator support, broad-spectrum antibiotics, hypotonic IV fluids, IV Cardizem, and consider amiodarone loading full anticoagulation. Monitor for further drop in platelet counts and signs of bleeding. Replace potassium. Check magnesium. Nick Gilbert M.D. DR: SRIDEVI JOB#: [id number] CC:
--- NOTE | 2017-04-01 21:45 | Consultation ---
DATE OF CONSULTATION: 04/01/2017 INFECTIOUS DISEASE CONSULTATION This consult is for coverage of Dr. Mo. PRIMARY ATTENDING PHYSICIAN: Caden Recio M.D. REASON FOR CONSULT: Septic shock, pneumonia, and UTI. HISTORY OF PRESENT ILLNESS: The patient is a 72-year-old female, who is a senior living resident, admitted on 03/31/2017 because of altered mental status. She was found to have hypoxemia, hypotension, and had respiratory failure. After admission, the patient was sent to the ER and started on empiric antibiotic treatment and started on BiPAP, but eventually intubated. In the ER, the patient had a right femoral line placement. PAST MEDICAL HISTORY: Multiple sclerosis, quadriplegia, status post G-tube, seizure disorder, and hypothyroidism. MEDICATIONS: Vancomycin, potassium chloride, levothyroxine, aztreonam, heparin, valproic acid, lacosamide, Levophed 18 mcg/kg/min, and Tylenol. ALLERGIES: Allergic to ceftriaxone, penicillin, sulfa, and tazobactam. REVIEW OF SYSTEMS: Unobtainable, but according to nursing had loose stool three times since last night. PHYSICAL EXAMINATION: VITAL SIGNS: Temperature 99.8 degrees, T-max is 102.4 degrees, pulse is 168, blood pressure 107/56, and respirations 25. GENERAL APPEARANCE: Seems to be obese. BMI is 36.3. HEAD AND NECK: Orally intubated. Has NG placement. HEART: Tachycardic. LUNGS: On mechanical ventilator seems clear. ABDOMEN: Soft. EXTREMITIES: Seems to have non-pitting edema. Has a right femoral line. LABORATORY DATA: WBC 6.9, hemoglobin 10.6, hematocrit 32.6, and platelets is 74,000. Sodium 161, potassium 2.4, chloride 118, BUN 87, and creatinine 1.2 coming down from 2.2. Lactic acid is 3.7. Albumin is 2.3. Chest x-ray showed faint triangular opacity in the right mid lung. UA showed WBC too many to count. The patient had a venous duplex of lower extremities that shows acute DVT of mid distal superficial femoral vein in the right and the left side. IMPRESSION: 1. Sepsis with septic shock. 2. Pneumonia. 3. Urinary tract infection. 4. History of Clostridium difficile. 5. Acute renal failure. 6. Acute respiratory failure. 7. Hypernatremia. 8. Hypokalemia. 9. Lactic acidosis. 10. Anemia. 11. Hypothyroidism. 12. Multiple sclerosis. RECOMMENDATIONS: We will continue with current antibiotics, vancomycin, and Azactam. We will plan sputum culture. We will send a stool for C. diff. We will follow up other cultures. At the end of my exam, I thank Dr. Recio for involving me in the care of this patient. Adria Castorena M.D. DR: CHRIS JOB#: [id number] CC:
[2017-04-01] MEDS: Amiodarone 900 MG in D5W 500ml 482 ML IV SCH (22:06)
[2017-04-01 23:38] LABS: TROPONIN I < 0.30 ng/mL (<=0.30)
--- NOTE | 2017-04-01 23:48 | Wound Care Consultation ---
Wound Assessment Wound Assessment #1: Wound Present on Admission: Yes New Wound: No Status Change of Wound: No Wound Location Body Site Modif: right, upper, medial Wound Location Body Site: thigh Wound Type: pressure ulcer Anya Test: Does not Anya Pressure Ulcer Stage: pressure by foreign body Wound Thickness: Full Thickness Wound Length: 19.0 Wound Width: 0.5 Wound Depth: utd Percent of Wound Purple/Maroon: 100 Wound Drainage Amount: None Wound Drainage Odor: None/Absent Tissue Surrounding Wound: Intact Wound General Appearance: Reddened - purple Wound Assessment #2: Wound Number: #2 Wound Present on Admission: Yes New Wound: No Status Change of Wound: No Wound Location Body Site Modif: left Wound Location Body Site: other - antecubital with patrial thickness skin loss Anya Test: Does not Anya Wound Thickness: Partial Thickness Wound Length: 0.8 Wound Width: 1.5 Wound Depth: less than 0.1 Percent of Wound [place]/Red: 100 Wound Drainage Amount: None Wound Drainage Odor: None/Absent Tissue Surrounding Wound: Intact Wound General Appearance: Reddened Wound Comment #1 Right upper inner thigh DTI pressure with foreign body #2 Left Antecubital area with partial thickness skin loss etiology unknown #3 Noted Sacral area with Blanchable redness Recommendation -Local wound care for DTI on left inner thigh -Right antecubital wound Cleanse with saline, pat dry, apply adaptic, cover with 4x4, secure with paper tape daily and PRN soiled/dislodged -Keep clean and dry -Turn and reposition -Offload both heels -Heel protector on both heels -Optimize nutrition -Assess and f/u accordingly for any changes MICHELLE RAPP RN Apr 01, 2017 23:48
[2017-04-02] VITALS (81 sets, daily range): BP systolic 70–201; BP diastolic 23–150
[2017-04-02] MEDS: D5 1/2NS w/KCl 20mEq 1,000 ML IV SCH ×5 (00:30→21:22)
[2017-04-02] MEDS: Acetaminophen Soln 160mg/5ml ORAL PRN (02:30)
[2017-04-02] MEDS: Dyna-Hex 2% Top Sol 8oz TOPIC SCH (04:21)
[2017-04-02] MEDS: Amiodarone 900 MG in D5W 500ml 482 ML IV SCH (04:21)
[2017-04-02] MEDS ORDERED: Levophed 4mg/4mL Inj IV ONE (05:24)
[2017-04-02 05:54] LABS: MEAN CORPUSCULAR HEMOGLOBIN 35.7 PG (27.0-31.0); MEAN CORPUSCULAR HGB CONC 31.9 G/DL (32.0-36.0); MEAN CORPUSCULAR VOLUME 112 FL (80-99); MEAN PLATELET VOLUME 15.3 FL (6.5-10.1); PLATELET COUNT 100 K/UL (150-450); RED BLOOD COUNT 2.96 M/UL (4.20-5.40); RED CELL DISTRIBUTION WIDTH 14.3 % (11.6-14.8); WHITE BLOOD COUNT 7.2 K/UL (4.8-10.8)
[2017-04-02 05:56] LABS: ALANINE AMINOTRANSFERASE 8 U/L (3-33); ALBUMIN/GLOBULIN RATIO 0.5 (1.0-2.7); ANION GAP 23 (5-15); ASPARTATE AMINO TRANSFERASE 25 U/L (5-40); CALCIUM 8.2 mg/dL (8.6-10.2); CARBON DIOXIDE 16 mEQ/L (20-30); CHLORIDE 108 mEQ/L (98-107); CREATININE 0.8 mg/dL (0.5-0.9); HEMOLYSIS 94; POTASSIUM 3.4 mEQ/L (3.4-4.9); SODIUM 147 mEQ/L (135-145)
[2017-04-02] MEDS: Aztreonam Inj 1 GM in D5W 55 ML IVPB SCH (06:22)
[2017-04-02] MEDS: Heparin 25,000u/D5W 500ml 500 ML IV SCH (07:39)
--- NOTE | 2017-04-02 07:51 | General Progress Note ---
Assessment/Plan Problem List: (1) Seizure disorder ICD Codes: G40.909 - Epilepsy, unspecified, not intractable, without status epilepticus SNOMED: 220940822 (2) ARF (acute renal failure) ICD Codes: N17.9 - Acute kidney failure, unspecified SNOMED: 64497557 Qualifiers: Qualified Codes: N17.9 - Acute kidney failure, unspecified (3) UTI (urinary tract infection) ICD Codes: N39.0 - Urinary tract infection, site not specified SNOMED: 55198639, 29077140 Qualifiers: Qualified Codes: N39.0 - Urinary tract infection, site not specified (4) Pneumonia ICD Codes: J18.9 - Pneumonia, unspecified organism SNOMED: 625908198, 19188078 Qualifiers: Qualified Codes: J18.1 - Lobar pneumonia, unspecified organism (5) Septic shock ICD Codes: A41.9 - Sepsis, unspecified organism; R65.21 - Severe sepsis with septic shock SNOMED: 66586453 (6) Hypoxia ICD Codes: R09.02 - Hypoxemia; R65.21 - Severe sepsis with septic shock SNOMED: 274601503, 46563490 (7) Altered level of consciousness ICD Codes: R40.4 - Transient alteration of awareness SNOMED: 4554127 Status: stable Assessment/Plan ivf iv abx vent support resp rx monitor abg follow up cultures heparin drip feeds cont sz rx critical and guarded Subjective ROS Limited/Unobtainable: Yes Constitutional: Reports: malaise, weakness HEENT: Reports: no symptoms Cardiovascular: Reports: no symptoms Respiratory: Reports: no symptoms Gastrointestinal/Abdominal: Reports: no symptoms Genitourinary: Reports: no symptoms Neurologic/Psychiatric: Reports: pre-existing deficit, seizure Endocrine: Reports: no symptoms Hematologic/Lymphatic: Reports: anemia Allergies: Coded Allergies: CEFTRIAXONE (Verified Allergy, Unknown, 03/31/17) PENICILLINS (Verified Allergy, Unknown, 03/31/17) SULFA (SULFONAMIDE ANTIBIOTICS) (Verified Allergy, Unknown, 03/31/17) TAZOBACTAM (Verified Allergy, Unknown, 03/31/17) All Systems: reviewed and negative except above Subjective intubated for resp distress and Vtach. On levophed at 25. on amiodarone drip. converted to sinus on amio. remains poorly responsive. Objective Last 24 Hour Vital Signs Date Time Temp Pulse Resp B/P Pulse Ox O2 Delivery O2 Flow Rate FiO2 04/02/17 07:00 75 22 136/101 100 Mechanical Ventilator 50 04/02/17 06:45 74 22 126/40 100 Mechanical Ventilator 50 04/02/17 06:30 73 21 116/24 100 Mechanical Ventilator 50 04/02/17 06:15 76 21 133/119 100 Mechanical Ventilator 50 04/02/17 06:00 76 22 115/44 100 Mechanical Ventilator 50 04/02/17 05:45 80 18 92/74 100 Mechanical Ventilator 50 04/02/17 05:30 79 18 130/43 100 Mechanical Ventilator 50 04/02/17 05:29 94/40 04/02/17 05:15 78 18 138/43 100 Mechanical Ventilator 50 04/02/17 05:00 82 18 138/43 100 Mechanical Ventilator 50 04/02/17 04:45 82 18 94/40 100 Mechanical Ventilator 50 04/02/17 04:32 86 24 50 04/02/17 04:30 81 22 115/40 100 Mechanical Ventilator 50 04/02/17 04:15 81 22 115/40 100 Mechanical Ventilator 50 04/02/17 04:00 50 04/02/17 04:00 81 22 116/39 100 Mechanical Ventilator 50 04/02/17 04:00 82 04/02/17 03:45 82 22 116/36 100 Mechanical Ventilator 50 04/02/17 03:30 86 22 82/54 100 Mechanical Ventilator 50 04/02/17 03:17 82 22 50 04/02/17 03:15 99.8 84 21 111/46 100 Mechanical Ventilator 50 04/02/17 03:02 119/38 04/02/17 03:00 99.1 04/02/17 03:00 84 22 121/36 100 Mechanical Ventilator 50 04/02/17 02:45 84 22 119/38 100 Mechanical Ventilator 50 04/02/17 02:30 84 22 119/38 100 Mechanical Ventilator 50 04/02/17 02:15 86 22 122/38 100 Mechanical Ventilator 50 04/02/17 02:00 86 22 110/32 99 Mechanical Ventilator 50 04/02/17 01:45 86 22 116/32 99 Mechanical Ventilator 50 04/02/17 01:30 86 23 113/35 99 Mechanical Ventilator 50 04/02/17 01:24 88 24 50 04/02/17 01:15 85 23 105/42 100 Mechanical Ventilator 50 04/02/17 01:00 84 22 107/54 100 Mechanical Ventilator 50 04/02/17 00:45 79 22 95/52 100 Mechanical Ventilator 50 04/02/17 00:40 95/52 04/02/17 00:30 158 23 95/52 99 Mechanical Ventilator 50 04/02/17 00:15 160 25 72/54 99 Mechanical Ventilator 50 04/02/17 00:00 87 04/02/17 00:00 50 04/02/17 00:00 161 25 104/58 99 Mechanical Ventilator 50 04/01/17 23:45 160 25 92/50 100 Mechanical Ventilator 50 04/01/17 23:30 160 26 101/72 100 Mechanical Ventilator 50 04/01/17 23:15 158 27 94/63 100 Mechanical Ventilator 50 04/01/17 23:14 158 27 50 04/01/17 23:00 154 23 70/24 98 Mechanical Ventilator 50 04/01/17 22:45 99.3 156 23 85/36 98 Mechanical Ventilator 50 04/01/17 22:30 161 23 70/24 98 Mechanical Ventilator 50 04/01/17 22:12 82/41 04/01/17 22:00 134 21 101/60 98 Mechanical Ventilator 50 04/01/17 21:45 164 21 101/60 98 Mechanical Ventilator 50 04/01/17 21:30 165 21 90/36 98 Mechanical Ventilator 50 04/01/17 21:15 166 21 93/28 98 Mechanical Ventilator 50 04/01/17 21:13 164 23 50 04/01/17 21:00 166 21 93/28 98 Mechanical Ventilator 50 04/01/17 20:45 167 21 96/58 98 Mechanical Ventilator 50 04/01/17 20:30 169 21 97/39 98 Mechanical Ventilator 50 04/01/17 20:15 168 22 109/57 98 Mechanical Ventilator 50 04/01/17 20:00 169 26 95/60 98 Mechanical Ventilator 50 04/01/17 20:00 169 04/01/17 20:00 50 04/01/17 19:45 167 26 61/50 98 Mechanical Ventilator 50 04/01/17 19:44 95/64 04/01/17 19:30 100.4 168 28 95/64 98 Mechanical Ventilator 50 04/01/17 19:15 167 26 57/41 98 Mechanical Ventilator 50 615/17 19:07 170 19 50 615/17 19:00 165 23 95/64 98 Mechanical Ventilator 50 615/17 18:45 170 25 86/35 98 Mechanical Ventilator 50 615/17 18:30 169 25 81/65 98 Mechanical Ventilator 50 6/15/17 18:15 162 24 85/33 98 Mechanical Ventilator 50 15/17 18:00 116 21 85/33 100 Mechanical Ventilator 50 15/17 17:45 127 21 81/32 100 Mechanical Ventilator 50 615/17 17:31 149 91/25 615/17 17:30 170 22 70/26 100 Mechanical Ventilator 50 15/17 17:15 165 20 78/42 100 Mechanical Ventilator 50 15/17 17:04 167 17 50 15/17 17:00 168 20 79/38 100 Mechanical Ventilator 50 15/17 16:30 130 22 90/45 100 Mechanical Ventilator 50 15/17 16:00 50 15/17 16:00 126 21 104/55 100 Mechanical Ventilator 50 15/17 16:00 150 15/17 15:30 152 21 89/45 100 Mechanical Ventilator 50 15/17 15:25 162 104/42 15/17 15:00 160 21 90/39 100 Mechanical Ventilator 50 15/17 14:36 122 23 50 15/17 14:31 104/42 15/17 14:30 114 21 104/42 100 Mechanical Ventilator 50 15/17 14:08 163 99/54 15/17 14:00 108 20 99/54 100 Mechanical Ventilator 50 1517 13:35 161 15/17 13:30 160 20 106/64 100 Mechanical Ventilator 50 15/17 13:25 114 15 50 15/17 13:00 162 17 80/53 100 Mechanical Ventilator 50 15/17 12:30 166 18 120/89 100 Mechanical Ventilator 50 15/17 12:00 98.9 165 18 90/40 100 Mechanical Ventilator 50 15/17 12:00 168 15/17 12:00 50 15/17 11:30 165 18 93/46 100 Mechanical Ventilator 50 15/17 11:17 162 25 50 615/17 11:15 164 17 90/30 100 Mechanical Ventilator 50 04/01/17 11:00 167 17 89/29 100 Mechanical Ventilator 50 04/01/17 10:45 166 19 90/38 100 Mechanical Ventilator 50 04/01/17 10:30 168 19 83/50 100 Mechanical Ventilator 50 04/01/17 10:15 166 19 94/71 100 Mechanical Ventilator 50 04/01/17 10:00 168 18 83/49 100 Mechanical Ventilator 50 04/01/17 09:45 166 24 103/47 92 Mechanical Ventilator 50 04/01/17 09:30 161 24 81/54 92 Mechanical Ventilator 50 04/01/17 09:20 165 14 50 04/01/17 09:20 50 04/01/17 09:15 161 24 81/54 92 Mechanical Ventilator 50 04/01/17 09:00 173 27 117/52 98 Bi-pap 40 04/01/17 08:45 156 26 112/47 99 Bi-pap 40 04/01/17 08:30 79 27 90/45 97 Bi-pap 40 04/01/17 08:15 83 27 77/61 97 Bi-pap 40 04/01/17 08:00 80 04/01/17 08:00 40 04/01/17 08:00 81 27 109/42 97 Bi-pap 40 Intake and Output 04/01/17 04/02/17 19:00 07:00 Intake Total 2620.810 ml 3047.34 ml Balance 2620.810 ml 3047.34 ml Intake IV Total 2620.810 ml 2957.34 ml Other 90 ml # Voids [phone] # Bowel Movements 2 2 Laboratory Tests 04/01/17 08:30: Lactic Acid Level 3.70H, Heparin-PF4 Antibody Screen [Pending] 04/01/17 08:45: Arterial Blood pH 7.440, Arterial Blood Partial Pressure CO2 36.9, Arterial Blood Partial Pressure O2 95.9, Arterial Blood HCO3 24.8, Arterial Blood Oxygen Saturation 97.1, Arterial Blood Base Excess 0.9, Neil Test Positive 04/01/17 14:24: Arterial Blood pH 7.410, Arterial Blood Partial Pressure CO2 30.7L, Arterial Blood Partial Pressure O2 103.4H, Arterial Blood HCO3 19.4L, Arterial Blood Oxygen Saturation 97.3, Arterial Blood Base Excess -4.3, Neil Test Positive 04/01/17 15:00: Lactic Acid Level 5.50H, White Blood Count 6.2, Red Blood Count 2.71L, Hemoglobin 9.6L, Hematocrit 31.1L, Mean Corpuscular Volume 115H, Mean Corpuscular Hemoglobin 35.6H, Mean Corpuscular Hemoglobin Concent 31.1L, Red Cell Distribution Width 14.1, Platelet Count 63L, Mean Platelet Volume 14.9H, Neutrophils (%) (Auto) , Lymphocytes (%) (Auto) , Monocytes (%) (Auto) , Eosinophils (%) (Auto) , Basophils (%) (Auto) , Differential Total Cells Counted 100, Neutrophils % (Manual) 65, Lymphocytes % (Manual) 21, Monocytes % ( Manual) 7, Eosinophils % (Manual) 0, Basophils % (Manual) 0, Band Neutrophils 7 , Platelet Estimate DecreasedL, Platelet Morphology Normal, Giant Platelets Rare , Anisocytosis 1+, Macrocytosis 1+, Activated Partial Thromboplast Time 39H, Sodium Level 158H, Potassium Level 2.8L, Chloride Level 116H, Carbon Dioxide Level 22, Anion Gap 20H, Blood Urea Nitrogen 74H, Creatinine 1.0H, Estimat Glomerular Filtration Rate , Glucose Level 175H, Calcium Level 8.1L, Total Bilirubin 0.4, Aspartate Amino Transf (AST/SGOT) 17, Alanine Aminotransferase ( ALT/SGPT) 8, Alkaline Phosphatase 42, Total Protein 6.2L, Albumin 2.3L, Globulin 3.9, Albumin/Globulin Ratio 0.5L 04/01/17 23:05: Activated Partial Thromboplast Time 92H, Potassium Level 4.1, Troponin I < 0.30 04/02/17 04:25: Activated Partial Thromboplast Time 173*H, Potassium Level 3.4, White Blood Count 7.2, Red Blood Count 2.96L, Hemoglobin 10.6L, Hematocrit 33.1L, Mean Corpuscular Volume 112H, Mean Corpuscular Hemoglobin 35.7H, Mean Corpuscular Hemoglobin Concent 31.9L, Red Cell Distribution Width 14.3, Platelet Count 100#L , Mean Platelet Volume 15.3H, Neutrophils (%) (Auto) , Lymphocytes (%) (Auto) , Monocytes (%) (Auto) , Eosinophils (%) (Auto) , Basophils (%) (Auto) , Sodium Level 147#H, Chloride Level 108H, Carbon Dioxide Level 16L, Anion Gap 23H, Blood Urea Nitrogen 51H, Creatinine 0.8, Estimat Glomerular Filtration Rate , Glucose Level 324#H, Calcium Level 8.2L, Total Bilirubin 0.4, Aspartate Amino Transf (AST/SGOT) 25, Alanine Aminotransferase (ALT/SGPT) 8, Alkaline Phosphatase 61, Total Protein 6.0L, Albumin 2.0L, Globulin 4.0, Albumin/ Globulin Ratio 0.5L Height (Feet): 5 Height (Inches): 3.00 Weight (Pounds): 209 General Appearance: WD/WN, confused Neck: supple Cardiovascular: normal rate, regular rhythm Respiratory/Chest: chest wall non-tender, no respiratory distress, no accessory muscle use, rhonchi - bilaterally Abdomen: normal bowel sounds, non tender, soft, no organomegaly Edema: no edema noted Arm (L), no edema noted Arm (R), no edema noted Leg (L), no edema noted Leg (R), no edema noted Pedal (L), no edema noted Pedal (R), no edema noted Generalized Neurologic: disoriented BREANNE SORIA Apr 02, 2017 07:51
--- NOTE | 2017-04-02 08:48 | Critical Care Progress Note ---
Assessment/Plan Assessment/Plan IMPRESSION: 1. Respiratory failure . 2. Hypoxemia. 3. Evidence of pulmonary infiltrates consistent with pneumonia. 4. Hypotension. 5. Quadriparesis. 6. Bedbound state. 7. deep venous thrombosis. 8. Gastrostomy tube. 9. Known aspiration. 10. UTI PLAN ventilator as is follow up ABG acid base better IV antibiotics IV hydration as is pressors as needed monitor hemodynamics monitor oxygen needs ICU care as is for now critical at present close monitoring required follow up cultures assess for weaning when stable medications/laboratory data/nursing notes/ICU care reviewed in detail note reviewed and edited care discussed with RN and RT ICU time spent 36 minutes Critical Care - Subjective Interval Events: overnight events noted intubated d/w nursing ROS Limited/Unobtainable: Yes Condition: critical I&O: Intake and Output 04/01/17 04/02/17 19:00 07:00 Intake Total 2620.810 ml 3047.34 ml Balance 2620.810 ml 3047.34 ml Intake IV Total 2620.810 ml 2957.34 ml Other 90 ml # Voids [phone] # Bowel Movements 2 2 Critical Care - Objective ET-Tube: 7.5 ET Position: 22 Last 24 Hour Vital Signs Date Time Temp Pulse Resp B/P Pulse Ox O2 Delivery O2 Flow Rate FiO2 04/02/17 08:42 114/36 04/02/17 08:00 50 04/02/17 08:00 72 04/02/17 07:45 79 22 147/90 99 Mechanical Ventilator 50 04/02/17 07:30 75 21 112/35 100 Mechanical Ventilator 50 04/02/17 07:15 98.9 78 23 120/90 99 Mechanical Ventilator 50 04/02/17 07:01 73 22 50 04/02/17 07:00 75 22 136/101 100 Mechanical Ventilator 50 04/02/17 06:45 74 22 126/40 100 Mechanical Ventilator 50 04/02/17 06:30 73 21 116/24 100 Mechanical Ventilator 50 04/02/17 06:15 76 21 133/119 100 Mechanical Ventilator 50 04/02/17 06:00 76 22 115/44 100 Mechanical Ventilator 50 04/02/17 05:45 80 18 92/74 100 Mechanical Ventilator 50 04/02/17 05:30 79 18 130/43 100 Mechanical Ventilator 50 04/02/17 05:29 94/40 616/17 05:15 78 18 138/43 100 Mechanical Ventilator 50 616/17 05:00 82 18 138/43 100 Mechanical Ventilator 50 616/17 04:45 82 18 94/40 100 Mechanical Ventilator 50 616/17 04:32 86 24 50 6/16/17 04:30 81 22 115/40 100 Mechanical Ventilator 50 616/17 04:15 81 22 115/40 100 Mechanical Ventilator 50 16/17 04:00 50 16/17 04:00 81 22 116/39 100 Mechanical Ventilator 50 616/17 04:00 82 16/17 03:45 82 22 116/36 100 Mechanical Ventilator 50 16/17 03:30 86 22 82/54 100 Mechanical Ventilator 50 16/17 03:17 82 22 50 16/17 03:15 99.8 84 21 111/46 100 Mechanical Ventilator 50 16/17 03:02 119/38 16 03:00 99.1 04/02/17 03:00 84 22 121/36 100 Mechanical Ventilator 50 16/17 02:45 84 22 119/38 100 Mechanical Ventilator 50 16/17 02:30 84 22 119/38 100 Mechanical Ventilator 50 16/17 02:15 86 22 122/38 100 Mechanical Ventilator 50 16/17 02:00 86 22 110/32 99 Mechanical Ventilator 50 16/17 01:45 86 22 116/32 99 Mechanical Ventilator 50 16/17 01:30 86 23 113/35 99 Mechanical Ventilator 50 16/ 01:24 88 24 50 616/17 01:15 85 23 105/42 100 Mechanical Ventilator 50 16/17 01:00 84 22 107/54 100 Mechanical Ventilator 50 16/17 00:45 79 22 95/52 100 Mechanical Ventilator 50 16/17 00:40 95/52 16/17 00:30 158 23 95/52 99 Mechanical Ventilator 50 16/17 00:15 160 25 72/54 99 Mechanical Ventilator 50 16/17 00:00 87 16 00:00 50 1617 00:00 161 25 104/58 99 Mechanical Ventilator 50 04/01/17 23:45 160 25 92/50 100 Mechanical Ventilator 50 04/01/17 23:30 160 26 101/72 100 Mechanical Ventilator 50 04/01/17 23:15 158 27 94/63 100 Mechanical Ventilator 50 04/01/17 23:14 158 27 50 04/01/17 23:00 154 23 70/24 98 Mechanical Ventilator 50 04/01/17 22:45 99.3 156 23 85/36 98 Mechanical Ventilator 50 04/01/17 22:30 161 23 70/24 98 Mechanical Ventilator 50 04/01/17 22:12 82/41 04/01/17 22:00 134 21 101/60 98 Mechanical Ventilator 50 17 21:45 164 21 101/60 98 Mechanical Ventilator 50 04/01/17 21:30 165 21 90/36 98 Mechanical Ventilator 50 04/01/17 21:15 166 21 93/28 98 Mechanical Ventilator 50 04/01/17 21:13 164 23 50 04/01/17 21:00 166 21 93/28 98 Mechanical Ventilator 50 04/01/17 20:45 167 21 96/58 98 Mechanical Ventilator 50 04/01/17 20:30 169 21 97/39 98 Mechanical Ventilator 50 04/01/17 20:15 168 22 109/57 98 Mechanical Ventilator 50 04/01/17 20:00 169 26 95/60 98 Mechanical Ventilator 50 04/01/17 20:00 169 04/01/17 20:00 50 04/01/17 19:45 167 26 61/50 98 Mechanical Ventilator 50 04/01/17 19:44 95/64 04/01/17 19:30 100.4 168 28 95/64 98 Mechanical Ventilator 50 04/01/17 19:15 167 26 57/41 98 Mechanical Ventilator 50 04/01/17 19:07 170 19 50 04/01/17 19:00 165 23 95/64 98 Mechanical Ventilator 50 04/01/17 18:45 170 25 86/35 98 Mechanical Ventilator 50 04/01/17 18:30 169 25 81/65 98 Mechanical Ventilator 50 17 18:15 162 24 85/33 98 Mechanical Ventilator 50 17 18:00 116 21 85/33 100 Mechanical Ventilator 50 1517 17:45 127 21 81/32 100 Mechanical Ventilator 50 1517 17:31 149 91/25 17 17:30 170 22 70/26 100 Mechanical Ventilator 50 6/15/17 17:15 165 20 78/42 100 Mechanical Ventilator 50 04/01/17 17:04 167 17 50 04/01/17 17:00 168 20 79/38 100 Mechanical Ventilator 50 04/01/17 16:30 130 22 90/45 100 Mechanical Ventilator 50 04/01/17 16:00 50 04/01/17 16:00 126 21 104/55 100 Mechanical Ventilator 50 04/01/17 16:00 150 04/01/17 15:30 152 21 89/45 100 Mechanical Ventilator 50 04/01/17 15:25 162 104/42 04/01/17 15:00 160 21 90/39 100 Mechanical Ventilator 50 04/01/17 14:36 122 23 50 04/01/17 14:31 104/42 04/01/17 14:30 114 21 104/42 100 Mechanical Ventilator 50 04/01/17 14:08 163 99/54 04/01/17 14:00 108 20 99/54 100 Mechanical Ventilator 50 04/01/17 13:35 161 04/01/17 13:30 160 20 106/64 100 Mechanical Ventilator 50 04/01/17 13:25 114 15 50 04/01/17 13:00 162 17 80/53 100 Mechanical Ventilator 50 04/01/17 12:30 166 18 120/89 100 Mechanical Ventilator 50 04/01/17 12:00 98.9 165 18 90/40 100 Mechanical Ventilator 50 04/01/17 12:00 168 04/01/17 12:00 50 04/01/17 11:30 165 18 93/46 100 Mechanical Ventilator 50 04/01/17 11:17 162 25 50 04/01/17 11:15 164 17 90/30 100 Mechanical Ventilator 50 04/01/17 11:00 167 17 89/29 100 Mechanical Ventilator 50 04/01/17 10:45 166 19 90/38 100 Mechanical Ventilator 50 04/01/17 10:30 168 19 83/50 100 Mechanical Ventilator 50 04/01/17 10:15 166 19 94/71 100 Mechanical Ventilator 50 04/01/17 10:00 168 18 83/49 100 Mechanical Ventilator 50 04/01/17 09:45 166 24 103/47 92 Mechanical Ventilator 50 04/01/17 09:30 161 24 81/54 92 Mechanical Ventilator 50 04/01/17 09:20 165 14 50 6/15/17 09:20 50 04/01/17 09:15 161 24 81/54 92 Mechanical Ventilator 50 04/01/17 09:00 173 27 117/52 98 Bi-pap 40 Labs: Labs Test 03/31/17 10:01 03/31/17 10:14 03/31/17 10:43 03/31/17 13:00 Urine Color Yellow Urine Appearance Slightly cloudy Urine pH 8 (4.5-8.0) Urine Specific [place] 1.020 (1.005-1.035) Urine Protein 3+ (NEGATIVE) Urine Glucose (UA) Negative (NEGATIVE) Urine Ketones Negative (NEGATIVE) Urine Occult Blood 4+ (NEGATIVE) Urine Nitrite Negative (NEGATIVE) Urine Bilirubin Negative (NEGATIVE) Urine Urobilinogen 1 MG/DL (0.0-1.0) Urine Leukocyte Esterase 3+ (NEGATIVE) Urine RBC 10-15 /HPF (0 - 2) Urine WBC Tntc /HPF (0 - 2) Urine Squamous Epithelial Cells Few /LPF (NONE/OCC) Urine Bacteria Many /HPF (NONE) White Blood Count 6.5 K/UL (4.8-10.8) Red Blood Count 4.33 M/UL (4.20-5.40) Hemoglobin 14.7 G/DL (12.0-16.0) Hematocrit 48.7 % (37.0-47.0) Mean Corpuscular Volume 112 FL (80-99) Mean Corpuscular Hemoglobin 33.9 PG (27.0-31.0) Mean Corpuscular Hemoglobin Concent 30.2 G/DL (32.0-36.0) Red Cell Distribution Width 14.8 % (11.6-14.8) Platelet Count 140 K/UL (150-450) Mean Platelet Volume 16.5 FL (6.5-10.1) Neutrophils (%) (Auto) % (45.0-75.0) Lymphocytes (%) (Auto) % (20.0-45.0) Monocytes (%) (Auto) % (1.0-10.0) Eosinophils (%) (Auto) % (0.0-3.0) Basophils (%) (Auto) % (0.0-2.0) Differential Total Cells Counted 100 Neutrophils % (Manual) 56 % (45-75) Lymphocytes % (Manual) 31 % (20-45) Monocytes % (Manual) 8 % (1-10) Eosinophils % (Manual) 0 % (0-3) Basophils % (Manual) 0 % (0-2) Band Neutrophils 5 % (0-8) Nucleated Red Blood Cells 2 /100 WBC Platelet Estimate Decreased Platelet Morphology Normal Macrocytosis 2+ Sodium Level 166 mEQ/L (135-145) Potassium Level 3.4 mEQ/L (3.4-4.9) Chloride Level 117 mEQ/L (98-107) Carbon Dioxide Level 33 mEQ/L (20-30) Anion Gap 16 (5-15) Blood Urea Nitrogen 112 mg/dL (7-23) Creatinine 2.2 mg/dL (0.5-0.9) Estimat Glomerular Filtration Rate mL/min (>60) Glucose Level 201 mg/dL (74-106) Lactic Acid Level 4.60 mmol/L (0.66-2.22) 3.60 mmol/L (0.66-2.22) Calcium Level 9.2 mg/dL (8.6-10.2) Total Bilirubin 0.4 mg/dL (0.0-1.2) Aspartate Amino Transf (AST/SGOT) 35 U/L (5-40) Alanine Aminotransferase (ALT/SGPT) 11 U/L (3-33) Alkaline Phosphatase 34 U/L (35-104) Total Creatine Kinase 451 U/L (26-140) Creatine Kinase MB < 1.5 ng/mL (< 3.8) Creatine Kinase MB Relative Index Troponin I < 0.30 ng/mL (<=0.30) Pro-B-Type Natriuretic Peptide 2610 pg/mL (0-125) Total Protein 8.1 g/dL (6.6-8.7) Albumin 3.1 g/dL (3.5-5.2) Globulin 5.0 g/dL Albumin/Globulin Ratio 0.6 (1.0-2.7) Valproic Acid (Depakene) Level 26 ug/mL (50-100) Arterial Blood pH 7.482 (7.350-7.450) Arterial Blood Partial Pressure CO2 39.5 mmHg (35.0-45.0) Arterial Blood Partial Pressure O2 68.1 mmHg (75.0-100.0) Arterial Blood HCO3 28.9 mmol/L (22.0-26.0) Arterial Blood Oxygen Saturation 93.2 % (92.0-98.0) Arterial Blood Base Excess 5.1 Neil Test Positive Test 03/31/17 23:00 04/01/17 05:25 04/01/17 08:30 04/01/17 08:45 White Blood Count 6.7 K/UL (4.8-10.8) 6.9 K/UL (4.8-10.8) Red Blood Count 2.94 M/UL (4.20-5.40) 2.93 M/UL (4.20-5.40) Hemoglobin 10.5 G/DL (12.0-16.0) 10.6 G/DL (12.0-16.0) Hematocrit 33.5 % (37.0-47.0) 32.6 % (37.0-47.0) Mean Corpuscular Volume 114 FL (80-99) 111 FL (80-99) Mean Corpuscular Hemoglobin 35.8 PG (27.0-31.0) 36.3 PG (27.0-31.0) Mean Corpuscular Hemoglobin Concent 31.4 G/DL (32.0-36.0) 32.5 G/DL (32.0-36.0) Red Cell Distribution Width 14.4 % (11.6-14.8) 14.7 % (11.6-14.8) Platelet Count 69 K/UL (150-450) 74 K/UL (150-450) Mean Platelet Volume 14.4 FL (6.5-10.1) 15.0 FL (6.5-10.1) Neutrophils (%) (Auto) % (45.0-75.0) % (45.0-75.0) Lymphocytes (%) (Auto) % (20.0-45.0) % (20.0-45.0) Monocytes (%) (Auto) % (1.0-10.0) % (1.0-10.0) Eosinophils (%) (Auto) % (0.0-3.0) % (0.0-3.0) Basophils (%) (Auto) % (0.0-2.0) % (0.0-2.0) Activated Partial Thromboplast Time 34 SEC (23-33) 100 SEC (23-33) Differential Total Cells Counted 100 Neutrophils % (Manual) 66 % (45-75) Lymphocytes % (Manual) 21 % (20-45) Monocytes % (Manual) 3 % (1-10) Eosinophils % (Manual) 0 % (0-3) Basophils % (Manual) 0 % (0-2) Band Neutrophils 10 % (0-8) Platelet Estimate Decreased Platelet Morphology Giant Platelets Rare Hypochromasia 1+ Anisocytosis 1+ Macrocytosis 1+ Sodium Level 161 mEQ/L (135-145) Potassium Level 2.4 mEQ/L (3.4-4.9) Chloride Level 118 mEQ/L (98-107) Carbon Dioxide Level 25 mEQ/L (20-30) Anion Gap 18 (5-15) Blood Urea Nitrogen 87 mg/dL (7-23) Creatinine 1.2 mg/dL (0.5-0.9) Estimat Glomerular Filtration Rate mL/min (>60) Glucose Level 137 mg/dL (74-106) Lactic Acid Level 3.70 mmol/L (0.66-2.22) 3.70 mmol/L (0.66-2.22) Calcium Level 7.9 mg/dL (8.6-10.2) Magnesium Level 2.2 mg/dL (1.7-2.5) Total Bilirubin 0.5 mg/dL (0.0-1.2) Aspartate Amino Transf (AST/SGOT) 20 U/L (5-40) Alanine Aminotransferase (ALT/SGPT) 8 U/L (3-33) Alkaline Phosphatase 38 U/L (35-104) Total Protein 6.4 g/dL (6.6-8.7) Albumin 2.3 g/dL (3.5-5.2) Globulin 4.1 g/dL Albumin/Globulin Ratio 0.5 (1.0-2.7) Arterial Blood pH 7.440 (7.350-7.450) Arterial Blood Partial Pressure CO2 36.9 mmHg (35.0-45.0) Arterial Blood Partial Pressure O2 95.9 mmHg (75.0-100.0) Arterial Blood HCO3 24.8 mmol/L (22.0-26.0) Arterial Blood Oxygen Saturation 97.1 % (92.0-98.0) Arterial Blood Base Excess 0.9 Neil Test Positive Test 04/01/17 14:24 04/01/17 15:00 04/01/17 23:05 04/02/17 04:25 Arterial Blood pH 7.410 (7.350-7.450) Arterial Blood Partial Pressure CO2 30.7 mmHg (35.0-45.0) Arterial Blood Partial Pressure O2 103.4 mmHg (75.0-100.0) Arterial Blood HCO3 19.4 mmol/L (22.0-26.0) Arterial Blood Oxygen Saturation 97.3 % (92.0-98.0) Arterial Blood Base Excess -4.3 Neil Test Positive White Blood Count 6.2 K/UL (4.8-10.8) 7.2 K/UL (4.8-10.8) Red Blood Count 2.71 M/UL (4.20-5.40) 2.96 M/UL (4.20-5.40) Hemoglobin 9.6 G/DL (12.0-16.0) 10.6 G/DL (12.0-16.0) Hematocrit 31.1 % (37.0-47.0) 33.1 % (37.0-47.0) Mean Corpuscular Volume 115 FL (80-99) 112 FL (80-99) Mean Corpuscular Hemoglobin 35.6 PG (27.0-31.0) 35.7 PG (27.0-31.0) Mean Corpuscular Hemoglobin Concent 31.1 G/DL (32.0-36.0) 31.9 G/DL (32.0-36.0) Red Cell Distribution Width 14.1 % (11.6-14.8) 14.3 % (11.6-14.8) Platelet Count 63 K/UL (150-450) 100 K/UL (150-450) Mean Platelet Volume 14.9 FL (6.5-10.1) 15.3 FL (6.5-10.1) Neutrophils (%) (Auto) % (45.0-75.0) % (45.0-75.0) Lymphocytes (%) (Auto) % (20.0-45.0) % (20.0-45.0) Monocytes (%) (Auto) % (1.0-10.0) % (1.0-10.0) Eosinophils (%) (Auto) % (0.0-3.0) % (0.0-3.0) Basophils (%) (Auto) % (0.0-2.0) % (0.0-2.0) Differential Total Cells Counted 100 Neutrophils % (Manual) 65 % (45-75) Lymphocytes % (Manual) 21 % (20-45) Monocytes % (Manual) 7 % (1-10) Eosinophils % (Manual) 0 % (0-3) Basophils % (Manual) 0 % (0-2) Band Neutrophils 7 % (0-8) Platelet Estimate Decreased Platelet Morphology Normal Giant Platelets Rare Anisocytosis 1+ Macrocytosis 1+ Activated Partial Thromboplast Time 39 SEC (23-33) 92 SEC (23-33) 173 SEC (23-33) Sodium Level 158 mEQ/L (135-145) 147 mEQ/L (135-145) Potassium Level 2.8 mEQ/L (3.4-4.9) 4.1 mEQ/L (3.4-4.9) 3.4 mEQ/L (3.4-4.9) Chloride Level 116 mEQ/L (98-107) 108 mEQ/L (98-107) Carbon Dioxide Level 22 mEQ/L (20-30) 16 mEQ/L (20-30) Anion Gap 20 (5-15) 23 (5-15) Blood Urea Nitrogen 74 mg/dL (7-23) 51 mg/dL (7-23) Creatinine 1.0 mg/dL (0.5-0.9) 0.8 mg/dL (0.5-0.9) Estimat Glomerular Filtration Rate mL/min (>60) mL/min (>60) Glucose Level 175 mg/dL (74-106) 324 mg/dL (74-106) Lactic Acid Level 5.50 mmol/L (0.66-2.22) Calcium Level 8.1 mg/dL (8.6-10.2) 8.2 mg/dL (8.6-10.2) Total Bilirubin 0.4 mg/dL (0.0-1.2) 0.4 mg/dL (0.0-1.2) Aspartate Amino Transf (AST/SGOT) 17 U/L (5-40) 25 U/L (5-40) Alanine Aminotransferase (ALT/SGPT) 8 U/L (3-33) 8 U/L (3-33) Alkaline Phosphatase 42 U/L (35-104) 61 U/L (35-104) Total Protein 6.2 g/dL (6.6-8.7) 6.0 g/dL (6.6-8.7) Albumin 2.3 g/dL (3.5-5.2) 2.0 g/dL (3.5-5.2) Globulin 3.9 g/dL 4.0 g/dL Albumin/Globulin Ratio 0.5 (1.0-2.7) 0.5 (1.0-2.7) Troponin I < 0.30 ng/mL (<=0.30) Objective: GENERAL: The patient is a well-developed female, intubated HEENT: Negative. sluggish pupils NECK: Supple. no JVD LUNGS: Moderate breath sounds. some Rhonchi noted diffusely. no wheeze; symmetric CARDIAC: S1 and S2. Regular rate and rhythm.without MRG ABDOMEN: Soft and nontender. The patient has a G-tube in place . no HSM Extremities: No cyanosis or clubbing. noted contractures. Quadriparesis. withdrawn Micro: Microbiology Date/Time Source Procedure Growth Status 03/31/17 10:20 Blood Blood Culture - Preliminary NO GROWTH AFTER 24 HOURS Resulted 03/31/17 10:00 Blood Blood Culture - Preliminary NO GROWTH AFTER 24 HOURS Resulted 03/31/17 10:01 Urine,Clean Catch Urine Culture - Preliminary Gram Negative Bacillus 1 Resulted Accucheck: 195 SANCHEZ NAVARRETE Apr 02, 2017 08:48
[2017-04-02] MEDS: Lacosamide 50mg tablet ORAL SCH ×2 (08:50→21:23)
[2017-04-02] MEDS: Valproic Acid 250mg/5ml Liquid GT SCH ×2 (08:51→21:22)
[2017-04-02] MEDS ORDERED: Tubing IV Secondary IV ONE (09:52)
[2017-04-02] MEDS ORDERED: 1/2 NS 1000ml IV ONE (09:52)
[2017-04-02] MEDS ORDERED: NS 275ml ONE (09:52)
--- NOTE | 2017-04-02 11:15 | Infectious Diseases Prog Note ---
Assessment/Plan Assessment/Plan antibiotics : vancomycin iv, aztreonam A 1. UTI 2. pneumonia 3. respiratory failure 4. multiple sclerosis 5. seizure disorder P 1. continue iv vancomycin 2. d/c aztreonam 3. start meropenem 4. sputum culture 5. will follow up cultures Subjective ROS Limited/Unobtainable: Yes Allergies: Coded Allergies: CEFTRIAXONE (Verified Allergy, Unknown, 03/31/17) PENICILLINS (Verified Allergy, Unknown, 03/31/17) SULFA (SULFONAMIDE ANTIBIOTICS) (Verified Allergy, Unknown, 03/31/17) TAZOBACTAM (Verified Allergy, Unknown, 03/31/17) Objective Vital Signs Last 24 Hour Vital Signs Date Time Temp Pulse Resp B/P Pulse Ox O2 Delivery O2 Flow Rate FiO2 04/02/17 10:56 78 28 50 04/02/17 10:00 72 22 122/39 100 Mechanical Ventilator 50 04/02/17 09:45 72 22 117/37 100 Mechanical Ventilator 50 04/02/17 09:30 73 21 125/33 100 Mechanical Ventilator 50 04/02/17 09:15 73 21 124/36 100 Mechanical Ventilator 50 04/02/17 09:15 71 22 50 04/02/17 09:00 73 22 129/29 100 Mechanical Ventilator 50 04/02/17 08:45 72 22 111/33 100 Mechanical Ventilator 50 04/02/17 08:42 114/36 04/02/17 08:30 73 22 114/36 100 Mechanical Ventilator 50 04/02/17 08:15 73 21 166/109 99 Mechanical Ventilator 50 04/02/17 08:00 74 21 163/96 99 Mechanical Ventilator 50 04/02/17 08:00 50 04/02/17 08:00 72 04/02/17 07:45 79 22 147/90 99 Mechanical Ventilator 50 04/02/17 07:30 75 21 112/35 100 Mechanical Ventilator 50 04/02/17 07:15 98.9 78 23 120/90 99 Mechanical Ventilator 50 04/02/17 07:01 73 22 50 04/02/17 07:00 75 22 136/101 100 Mechanical Ventilator 50 04/02/17 06:45 74 22 126/40 100 Mechanical Ventilator 50 04/02/17 06:30 73 21 116/24 100 Mechanical Ventilator 50 04/02/17 06:15 76 21 133/119 100 Mechanical Ventilator 50 6/16/17 06:00 76 22 115/44 100 Mechanical Ventilator 50 6/16/17 05:45 80 18 92/74 100 Mechanical Ventilator 50 6/16/17 05:30 79 18 130/43 100 Mechanical Ventilator 50 6/16/17 05:29 94/40 6/16/17 05:15 78 18 138/43 100 Mechanical Ventilator 50 6/16/17 05:00 82 18 138/43 100 Mechanical Ventilator 50 6/16/17 04:45 82 18 94/40 100 Mechanical Ventilator 50 6/16/17 04:32 86 24 50 6/16/17 04:30 81 22 115/40 100 Mechanical Ventilator 50 6/16/17 04:15 81 22 115/40 100 Mechanical Ventilator 50 616/17 04:00 50 616/17 04:00 81 22 116/39 100 Mechanical Ventilator 50 6/16/17 04:00 82 6/16/17 03:45 82 22 116/36 100 Mechanical Ventilator 50 616/17 03:30 86 22 82/54 100 Mechanical Ventilator 50 616/17 03:17 82 22 50 6/16/17 03:15 99.8 84 21 111/46 100 Mechanical Ventilator 50 616/17 03:02 119/38 616/17 03:00 99.1 616/17 03:00 84 22 121/36 100 Mechanical Ventilator 50 616/17 02:45 84 22 119/38 100 Mechanical Ventilator 50 6/16/17 02:30 84 22 119/38 100 Mechanical Ventilator 50 616/17 02:15 86 22 122/38 100 Mechanical Ventilator 50 616/17 02:00 86 22 110/32 99 Mechanical Ventilator 50 616/17 01:45 86 22 116/32 99 Mechanical Ventilator 50 616/17 01:30 86 23 113/35 99 Mechanical Ventilator 50 6/16/17 01:24 88 24 50 6/16/17 01:15 85 23 105/42 100 Mechanical Ventilator 50 6/16/17 01:00 84 22 107/54 100 Mechanical Ventilator 50 6/16/17 00:45 79 22 95/52 100 Mechanical Ventilator 50 6/16/17 00:40 95/52 6/16/17 00:30 158 23 95/52 99 Mechanical Ventilator 50 616/17 00:15 160 25 72/54 99 Mechanical Ventilator 50 04/02/17 00:00 87 16 00:00 50 04/02/17 00:00 161 25 104/58 99 Mechanical Ventilator 50 04/01/17 23:45 160 25 92/50 100 Mechanical Ventilator 50 1517 23:30 160 26 101/72 100 Mechanical Ventilator 50 04/01/17 23:15 158 27 94/63 100 Mechanical Ventilator 50 04/01/17 23:14 158 27 50 04/01/17 23:00 154 23 70/24 98 Mechanical Ventilator 50 04/01/17 22:45 99.3 156 23 85/36 98 Mechanical Ventilator 50 04/01/17 22:30 161 23 70/24 98 Mechanical Ventilator 50 04/01/17 22:12 82/41 04/01/17 22:00 134 21 101/60 98 Mechanical Ventilator 50 04/01/17 21:45 164 21 101/60 98 Mechanical Ventilator 50 04/01/17 21:30 165 21 90/36 98 Mechanical Ventilator 50 04/01/17 21:15 166 21 93/28 98 Mechanical Ventilator 50 04/01/17 21:13 164 23 50 04/01/17 21:00 166 21 93/28 98 Mechanical Ventilator 50 04/01/17 20:45 167 21 96/58 98 Mechanical Ventilator 50 04/01/17 20:30 169 21 97/39 98 Mechanical Ventilator 50 04/01/17 20:15 168 22 109/57 98 Mechanical Ventilator 50 04/01/17 20:00 169 26 95/60 98 Mechanical Ventilator 50 04/01/17 20:00 169 04/01/17 20:00 50 04/01/17 19:45 167 26 61/50 98 Mechanical Ventilator 50 04/01/17 19:44 95/64 04/01/17 19:30 100.4 168 28 95/64 98 Mechanical Ventilator 50 04/01/17 19:15 167 26 57/41 98 Mechanical Ventilator 50 04/01/17 19:07 170 19 50 04/01/17 19:00 165 23 95/64 98 Mechanical Ventilator 50 17 18:45 170 25 86/35 98 Mechanical Ventilator 50 1517 18:30 169 25 81/65 98 Mechanical Ventilator 50 1517 18:15 162 24 85/33 98 Mechanical Ventilator 50 04/01/17 18:00 116 21 85/33 100 Mechanical Ventilator 50 04/01/17 17:45 127 21 81/32 100 Mechanical Ventilator 50 04/01/17 17:31 149 91/25 04/01/17 17:30 170 22 70/26 100 Mechanical Ventilator 50 04/01/17 17:15 165 20 78/42 100 Mechanical Ventilator 50 04/01/17 17:04 167 17 50 04/01/17 17:00 168 20 79/38 100 Mechanical Ventilator 50 04/01/17 16:30 130 22 90/45 100 Mechanical Ventilator 50 04/01/17 16:00 50 04/01/17 16:00 126 21 104/55 100 Mechanical Ventilator 50 04/01/17 16:00 150 04/01/17 15:30 152 21 89/45 100 Mechanical Ventilator 50 04/01/17 15:25 162 104/42 04/01/17 15:00 160 21 90/39 100 Mechanical Ventilator 50 04/01/17 14:36 122 23 50 04/01/17 14:31 104/42 04/01/17 14:30 114 21 104/42 100 Mechanical Ventilator 50 04/01/17 14:08 163 99/54 04/01/17 14:00 108 20 99/54 100 Mechanical Ventilator 50 04/01/17 13:35 161 04/01/17 13:30 160 20 106/64 100 Mechanical Ventilator 50 04/01/17 13:25 114 15 50 04/01/17 13:00 162 17 80/53 100 Mechanical Ventilator 50 04/01/17 12:30 166 18 120/89 100 Mechanical Ventilator 50 04/01/17 12:00 98.9 165 18 90/40 100 Mechanical Ventilator 50 04/01/17 12:00 168 04/01/17 12:00 50 04/01/17 11:30 165 18 93/46 100 Mechanical Ventilator 50 04/01/17 11:17 162 25 50 04/01/17 11:15 164 17 90/30 100 Mechanical Ventilator 50 Height (Feet): 5 Height (Inches): 3.00 Weight (Pounds): 209 HEENT: other - intubated Respiratory/Chest: lungs clear Cardiovascular: normal rate, regular rhythm, no gallop/murmur Abdomen: soft, non tender, other - GT Extremities: other - + edema Microbiology Date/Time Source Procedure Growth Status 03/31/17 10:20 Blood Blood Culture - Preliminary NO GROWTH AFTER 24 HOURS Resulted 03/31/17 10:00 Blood Blood Culture - Preliminary NO GROWTH AFTER 24 HOURS Resulted 03/31/17 18:00 Nasal Nares MRSA Culture - Final NO METHICILLIN RESISTANT STAPH AUREUS... Complete 04/01/17 16:00 Stool Clostridium difficile Toxin Assay - Final Complete 03/31/17 10:01 Urine,Clean Catch Urine Culture - Preliminary Gram Negative Bacillus 1 Resulted Laboratory Tests Test 04/01/17 14:24 04/01/17 15:00 04/01/17 23:05 04/02/17 04:25 Arterial Blood pH 7.410 (7.350-7.450) Arterial Blood Partial Pressure CO2 30.7 mmHg (35.0-45.0) L Arterial Blood Partial Pressure O2 103.4 mmHg (75.0-100.0) H Arterial Blood HCO3 19.4 mmol/L (22.0-26.0) L Arterial Blood Oxygen Saturation 97.3 % (92.0-98.0) Arterial Blood Base Excess -4.3 Neil Test Positive White Blood Count 6.2 K/UL (4.8-10.8) 7.2 K/UL (4.8-10.8) Red Blood Count 2.71 M/UL (4.20-5.40) L 2.96 M/UL (4.20-5.40) L Hemoglobin 9.6 G/DL (12.0-16.0) L 10.6 G/DL (12.0-16.0) L Hematocrit 31.1 % (37.0-47.0) L 33.1 % (37.0-47.0) L Mean Corpuscular Volume 115 FL (80-99) H 112 FL (80-99) H Mean Corpuscular Hemoglobin 35.6 PG (27.0-31.0) H 35.7 PG (27.0-31.0) H Mean Corpuscular Hemoglobin Concent 31.1 G/DL (32.0-36.0) L 31.9 G/DL (32.0-36.0) L Red Cell Distribution Width 14.1 % (11.6-14.8) 14.3 % (11.6-14.8) Platelet Count 63 K/UL (150-450) L 100 K/UL (150-450) #L Mean Platelet Volume 14.9 FL (6.5-10.1) H 15.3 FL (6.5-10.1) H Neutrophils (%) (Auto) % (45.0-75.0) % (45.0-75.0) Lymphocytes (%) (Auto) % (20.0-45.0) % (20.0-45.0) Monocytes (%) (Auto) % (1.0-10.0) % (1.0-10.0) Eosinophils (%) (Auto) % (0.0-3.0) % (0.0-3.0) Basophils (%) (Auto) % (0.0-2.0) % (0.0-2.0) Differential Total Cells Counted 100 Neutrophils % (Manual) 65 % (45-75) Lymphocytes % (Manual) 21 % (20-45) Monocytes % (Manual) 7 % (1-10) Eosinophils % (Manual) 0 % (0-3) Basophils % (Manual) 0 % (0-2) Band Neutrophils 7 % (0-8) Platelet Estimate Decreased L Platelet Morphology Normal Giant Platelets Rare Anisocytosis 1+ Macrocytosis 1+ Activated Partial Thromboplast Time 39 SEC (23-33) H 92 SEC (23-33) H 173 SEC (23-33) *H Sodium Level 158 mEQ/L (135-145) H 147 mEQ/L (135-145) #H Potassium Level 2.8 mEQ/L (3.4-4.9) L 4.1 mEQ/L (3.4-4.9) 3.4 mEQ/L (3.4-4.9) Chloride Level 116 mEQ/L (98-107) H 108 mEQ/L (98-107) H Carbon Dioxide Level 22 mEQ/L (20-30) 16 mEQ/L (20-30) L Anion Gap 20 (5-15) H 23 (5-15) H Blood Urea Nitrogen 74 mg/dL (7-23) H 51 mg/dL (7-23) H Creatinine 1.0 mg/dL (0.5-0.9) H 0.8 mg/dL (0.5-0.9) Estimat Glomerular Filtration Rate mL/min (>60) mL/min (>60) Glucose Level 175 mg/dL (74-106) H 324 mg/dL (74-106) #H Lactic Acid Level 5.50 mmol/L (0.66-2.22) H Calcium Level 8.1 mg/dL (8.6-10.2) L 8.2 mg/dL (8.6-10.2) L Total Bilirubin 0.4 mg/dL (0.0-1.2) 0.4 mg/dL (0.0-1.2) Aspartate Amino Transf (AST/SGOT) 17 U/L (5-40) 25 U/L (5-40) Alanine Aminotransferase (ALT/SGPT) 8 U/L (3-33) 8 U/L (3-33) Alkaline Phosphatase 42 U/L (35-104) 61 U/L (35-104) Total Protein 6.2 g/dL (6.6-8.7) L 6.0 g/dL (6.6-8.7) L Albumin 2.3 g/dL (3.5-5.2) L 2.0 g/dL (3.5-5.2) L Globulin 3.9 g/dL 4.0 g/dL Albumin/Globulin Ratio 0.5 (1.0-2.7) L 0.5 (1.0-2.7) L Troponin I < 0.30 ng/mL (<=0.30) KAMRAN GUTIERREZ Apr 02, 2017 11:15
[2017-04-02] MEDS: Vancomycin 750 MG in D5W 275 ML IVPB SCH ×2 (11:28→23:31)
[2017-04-02] MEDS: Meropenem 1gm/NS 110ml IVPB SCH ×4 (12:19→21:21)
[2017-04-02] MEDS ORDERED: Vancomycin 1gm in D5W 275ml IVPB SCH (13:00)
[2017-04-02] MEDS ORDERED: Succinylcholine 20mg/ml 10ml vial ONE (16:52)
[2017-04-02] MEDS ORDERED: Amiodarone 900 MG in D5W 500ml 482 ML IV SCH (21:00)
[2017-04-03] VITALS (76 sets, daily range): BP systolic 63–155; BP diastolic 21–120
[2017-04-03] MEDS: Dyna-Hex 2% Top Sol 8oz TOPIC SCH (02:18)
[2017-04-03] MEDS: Heparin 25,000u/D5W 500ml 500 ML IV SCH (05:28)
[2017-04-03 08:06] LABS: MEAN CORPUSCULAR HGB CONC 34.4 G/DL (32.0-36.0); MEAN CORPUSCULAR VOLUME 108 FL (80-99); MEAN PLATELET VOLUME 13.2 FL (6.5-10.1); PLATELET COUNT 61 K/UL (150-450); RED BLOOD COUNT 2.52 M/UL (4.20-5.40); RED CELL DISTRIBUTION WIDTH 13.3 % (11.6-14.8); WHITE BLOOD COUNT 4.3 K/UL (4.8-10.8)
[2017-04-03 08:08] LABS: ALANINE AMINOTRANSFERASE 7 U/L (3-33); ALBUMIN/GLOBULIN RATIO 0.5 (1.0-2.7); ANION GAP 18 (5-15); ASPARTATE AMINO TRANSFERASE 15 U/L (5-40); CALCIUM 8.1 mg/dL (8.6-10.2); CARBON DIOXIDE 19 mEQ/L (20-30); CHLORIDE 106 mEQ/L (98-107); CREATININE 0.5 mg/dL (0.5-0.9); HEMOLYSIS 27; POTASSIUM 2.8 mEQ/L (3.4-4.9); SODIUM 143 mEQ/L (135-145); TOTAL PROTEIN 5.5 g/dL (6.6-8.7)
--- NOTE | 2017-04-03 08:10 | General Progress Note ---
Assessment/Plan Problem List: (1) Seizure disorder ICD Codes: G40.909 - Epilepsy, unspecified, not intractable, without status epilepticus SNOMED: 498429016 (2) ARF (acute renal failure) ICD Codes: N17.9 - Acute kidney failure, unspecified SNOMED: 80761856 Qualifiers: Qualified Codes: N17.9 - Acute kidney failure, unspecified (3) UTI (urinary tract infection) ICD Codes: N39.0 - Urinary tract infection, site not specified SNOMED: 87275290, 35535736 Qualifiers: Qualified Codes: N39.0 - Urinary tract infection, site not specified (4) Pneumonia ICD Codes: J18.9 - Pneumonia, unspecified organism SNOMED: 546145035, 62041406 Qualifiers: Qualified Codes: J18.1 - Lobar pneumonia, unspecified organism (5) Septic shock ICD Codes: A41.9 - Sepsis, unspecified organism; R65.21 - Severe sepsis with septic shock SNOMED: 86769444 (6) Hypoxia ICD Codes: R09.02 - Hypoxemia; R65.21 - Severe sepsis with septic shock SNOMED: 016738769, 39321957 (7) Altered level of consciousness ICD Codes: R40.4 - Transient alteration of awareness SNOMED: 2653252 Status: stable Assessment/Plan ivf iv abx vent support resp rx monitor abg wean per pulm follow up cultures and pending labs heparin drip feeds cont sz rx picc critical and guarded Subjective ROS Limited/Unobtainable: No Constitutional: Reports: malaise, weakness HEENT: Reports: no symptoms Cardiovascular: Reports: no symptoms Respiratory: Reports: shortness of breath Gastrointestinal/Abdominal: Reports: difficulty swallowing Genitourinary: Reports: no symptoms Neurologic/Psychiatric: Reports: pre-existing deficit Endocrine: Reports: no symptoms Hematologic/Lymphatic: Reports: no symptoms Allergies: Coded Allergies: CEFTRIAXONE (Verified Allergy, Unknown, 03/31/17) PENICILLINS (Verified Allergy, Unknown, 03/31/17) SULFA (SULFONAMIDE ANTIBIOTICS) (Verified Allergy, Unknown, 03/31/17) TAZOBACTAM (Verified Allergy, Unknown, 03/31/17) All Systems: reviewed and negative except above Subjective remains on the vent. on levophed at 10. uop good. moves ext. tolerating feeds. labs still pending from this am Objective Last 24 Hour Vital Signs Date Time Temp Pulse Resp B/P Pulse Ox O2 Delivery O2 Flow Rate FiO2 04/03/17 07:00 78 19 50 04/03/17 07:00 76 21 106/35 100 Mechanical Ventilator 50 04/03/17 06:45 77 22 110/35 100 Mechanical Ventilator 50 04/03/17 06:30 73 21 71/45 100 Mechanical Ventilator 50 04/03/17 06:15 70 21 115/55 100 Mechanical Ventilator 50 04/03/17 06:00 75 21 115/55 100 Mechanical Ventilator 50 04/03/17 05:45 73 21 118/30 100 Mechanical Ventilator 50 04/03/17 05:30 73 21 155/24 100 Mechanical Ventilator 50 04/03/17 05:27 90/34 04/03/17 05:15 76 21 153/103 100 Mechanical Ventilator 50 04/03/17 05:14 83 27 50 04/03/17 05:00 70 21 113/32 100 Mechanical Ventilator 50 04/03/17 04:45 70 21 91/30 100 Mechanical Ventilator 50 04/03/17 04:30 79 21 91/32 100 Mechanical Ventilator 50 04/03/17 04:15 79 21 91/56 100 Mechanical Ventilator 50 04/03/17 04:00 50 04/03/17 04:00 99.1 70 21 90/30 100 Mechanical Ventilator 50 04/03/17 03:45 70 21 91/56 100 Mechanical Ventilator 50 04/03/17 03:30 73 21 90/56 100 Mechanical Ventilator 50 04/03/17 03:15 79 21 91/32 100 Mechanical Ventilator 50 04/03/17 03:09 70 23 50 04/03/17 03:00 70 21 91/30 100 Mechanical Ventilator 50 04/03/17 02:45 71 23 91/30 100 Mechanical Ventilator 50 04/03/17 02:30 77 23 91/32 100 Mechanical Ventilator 50 04/03/17 02:15 75 23 91/32 100 Mechanical Ventilator 50 04/03/17 02:00 87 24 114/85 100 Mechanical Ventilator 50 04/03/17 01:45 83 24 114/85 100 Mechanical Ventilator 50 04/03/17 01:30 80 24 101/34 100 Mechanical Ventilator 50 04/03/17 01:15 73 26 71/21 100 Mechanical Ventilator 50 6/17/17 01:10 78 27 50 04/03/17 01:00 75 25 115/56 100 Mechanical Ventilator 50 04/03/17 00:45 75 24 90/57 100 Mechanical Ventilator 50 04/03/17 00:30 75 24 63/41 100 Mechanical Ventilator 50 04/03/17 00:16 86/25 04/03/17 00:15 72 23 94/32 99 Mechanical Ventilator 50 04/03/17 00:00 98.9 73 23 80/57 99 Mechanical Ventilator 50 04/03/17 00:00 50 04/02/17 23:45 72 23 101/37 99 Mechanical Ventilator 50 1617 23:30 70 23 98/33 99 Mechanical Ventilator 50 16 23:15 70 23 100/33 99 Mechanical Ventilator 50 04/02/17 23:06 71 19 50 04/02/17 23:00 70 23 97/33 98 Mechanical Ventilator 50 04/02/17 22:45 70 21 91/25 98 Mechanical Ventilator 50 04/02/17 22:30 73 21 91/25 98 Mechanical Ventilator 50 04/02/17 22:15 74 25 89/23 98 Mechanical Ventilator 50 04/02/17 22:00 77 24 87/30 99 Mechanical Ventilator 50 04/02/17 21:45 80 24 98/28 99 Mechanical Ventilator 50 04/02/17 21:30 84 24 98/28 99 Mechanical Ventilator 50 04/02/17 21:15 76 24 104/28 99 Mechanical Ventilator 50 04/02/17 21:00 75 23 103/34 100 Mechanical Ventilator 50 04/02/17 20:45 75 24 105/31 99 Mechanical Ventilator 50 04/02/17 20:41 78 22 50 04/02/17 20:30 77 26 106/29 96 Mechanical Ventilator 50 16/17 20:15 84 23 96/40 96 Mechanical Ventilator 50 1617 20:00 50 1617 20:00 81 16 20:00 84 23 96/40 96 Mechanical Ventilator 50 1617 19:51 103/37 1617 19:45 75 25 103/37 100 Mechanical Ventilator 50 1617 19:30 79 26 79/58 100 Mechanical Ventilator 50 16/17 19:15 81 26 100/37 97 Mechanical Ventilator 50 04/02/17 19:00 99.1 77 25 112/31 100 Mechanical Ventilator 50 6/16/17 18:59 82 26 50 6/16/17 18:30 76 24 108/40 99 Mechanical Ventilator 50 6/16/17 18:00 82 27 118/36 98 Mechanical Ventilator 50 6/16/17 17:30 73 24 111/37 97 Mechanical Ventilator 50 6/16/17 17:00 73 24 107/50 96 Mechanical Ventilator 50 6/16/17 16:46 78 28 50 6/16/17 16:30 73 24 70/23 100 Mechanical Ventilator 50 6/16/17 16:29 110/36 6/16/17 16:00 99.0 73 24 113/34 100 Mechanical Ventilator 50 6/16/17 16:00 50 6/16/17 16:00 68 6/16/17 15:30 76 24 107/34 100 Mechanical Ventilator 50 6/16/17 15:09 72 18 50 6/16/17 15:00 76 24 106/42 100 Mechanical Ventilator 50 6/16/17 14:30 76 24 107/36 100 Mechanical Ventilator 50 6/16/17 14:00 72 24 116/89 100 Mechanical Ventilator 50 6/16/17 13:30 77 24 131/101 100 Mechanical Ventilator 50 6/16/17 13:00 76 24 201/150 100 Mechanical Ventilator 50 6/16/17 12:47 74 19 50 6/16/17 12:30 72 24 107/37 100 Mechanical Ventilator 50 6/16/17 12:19 97/35 6/16/17 12:00 73 6/16/17 12:00 98.9 76 24 115/90 100 Mechanical Ventilator 50 6/16/17 12:00 50 6/16/17 11:30 72 24 104/37 100 Mechanical Ventilator 50 6/16/17 11:15 74 25 115/41 100 Mechanical Ventilator 50 6/16/17 11:00 76 27 102/38 100 Mechanical Ventilator 50 6/16/17 10:56 78 28 50 6/16/17 10:45 78 22 109/75 99 Mechanical Ventilator 50 6/16/17 10:30 72 22 129/37 100 Mechanical Ventilator 50 6/16/17 10:15 71 22 120/34 100 Mechanical Ventilator 50 6/16/17 10:00 72 22 122/39 100 Mechanical Ventilator 50 6/16/17 09:45 72 22 117/37 100 Mechanical Ventilator 50 6/16/17 09:30 73 21 125/33 100 Mechanical Ventilator 50 04/02/17 09:15 73 21 124/36 100 Mechanical Ventilator 50 04/02/17 09:15 71 22 50 04/02/17 09:00 73 22 129/29 100 Mechanical Ventilator 50 04/02/17 08:45 72 22 111/33 100 Mechanical Ventilator 50 04/02/17 08:42 114/36 04/02/17 08:30 73 22 114/36 100 Mechanical Ventilator 50 04/02/17 08:15 73 21 166/109 99 Mechanical Ventilator 50 Intake and Output 04/02/17 04/03/17 19:00 07:00 Intake Total 3410.87 ml 3069.968 ml Balance 3410.87 ml 3069.968 ml Intake IV Total 3215.87 ml 2784.968 ml Tube Feeding 165 ml 255 ml Other 30 ml 30 ml # Voids [phone] # Bowel Movements 5 5 Laboratory Tests 04/02/17 13:40: Activated Partial Thromboplast Time 94H Height (Feet): 5 Height (Inches): 3.00 Weight (Pounds): 215 Objective General Appearance: WD/WN, confused Neck: supple Cardiovascular: normal rate, regular rhythm Respiratory/Chest: chest wall non-tender, no respiratory distress, no accessory muscle use, rhonchi - bilaterally Abdomen: normal bowel sounds, non tender, soft, no organomegaly Edema: no edema noted Arm (L), no edema noted Arm (R), no edema noted Leg (L), no edema noted Leg (R), no edema noted Pedal (L), no edema noted Pedal (R), no edema noted Generalized Neurologic: disoriented BREANNE SORIA 17, 2017 08:10
--- NOTE | 2017-04-03 08:40 | Critical Care Progress Note ---
Assessment/Plan Assessment/Plan IMPRESSION: 1. Respiratory failure . 2. Hypoxemia. 3. Evidence of pulmonary infiltrates consistent with pneumonia. 4. Hypotension. 5. Quadriparesis. 6. Bedbound state. 7. deep venous thrombosis. 8. Gastrostomy tube. 9. Known aspiration. 10. UTI PLAN ventilator as is follow up ABG for change cultures noted IV antibiotics IV hydration as is pressors as needed and taper monitor hemodynamics monitor oxygen needs ICU care as is for now critical at present close monitoring required follow up cultures and adjust hold wean today medications/laboratory data/nursing notes/ICU care reviewed in detail note reviewed and edited care discussed with RN and RT ICU time spent 37 minutes Critical Care - Subjective Interval Events: still hypotensive care noted in ICU still on pressors ROS Limited/Unobtainable: Yes EKG Rhythm: Sinus Rhythm I&O: Intake and Output 04/02/17 04/03/17 19:00 07:00 Intake Total 3410.87 ml 3069.968 ml Balance 3410.87 ml 3069.968 ml Intake IV Total 3215.87 ml 2784.968 ml Tube Feeding 165 ml 255 ml Other 30 ml 30 ml # Voids [phone] # Bowel Movements 5 5 Critical Care - Objective CXR: reviewed ET-Tube: 7.5 ET Position: 20 Last 24 Hour Vital Signs Date Time Temp Pulse Resp B/P Pulse Ox O2 Delivery O2 Flow Rate FiO2 04/03/17 07:00 78 19 50 04/03/17 07:00 76 21 106/35 100 Mechanical Ventilator 50 04/03/17 06:45 77 22 110/35 100 Mechanical Ventilator 50 04/03/17 06:30 73 21 71/45 100 Mechanical Ventilator 50 04/03/17 06:15 70 21 115/55 100 Mechanical Ventilator 50 04/03/17 06:00 75 21 115/55 100 Mechanical Ventilator 50 04/03/17 05:45 73 21 118/30 100 Mechanical Ventilator 50 04/03/17 05:30 73 21 155/24 100 Mechanical Ventilator 50 04/03/17 05:27 90/34 04/03/17 05:15 76 21 153/103 100 Mechanical Ventilator 50 04/03/17 05:14 83 27 50 04/03/17 05:00 70 21 113/32 100 Mechanical Ventilator 50 04/03/17 04:45 70 21 91/30 100 Mechanical Ventilator 50 6/17/17 04:30 79 21 91/32 100 Mechanical Ventilator 50 6/17/17 04:15 79 21 91/56 100 Mechanical Ventilator 50 6/17/17 04:00 50 6/17/17 04:00 99.1 70 21 90/30 100 Mechanical Ventilator 50 6/17/17 03:45 70 21 91/56 100 Mechanical Ventilator 50 6/17/17 03:30 73 21 90/56 100 Mechanical Ventilator 50 6/17/17 03:15 79 21 91/32 100 Mechanical Ventilator 50 6/17/17 03:09 70 23 50 6/17/17 03:00 70 21 91/30 100 Mechanical Ventilator 50 6/17/17 02:45 71 23 91/30 100 Mechanical Ventilator 50 6/17/17 02:30 77 23 91/32 100 Mechanical Ventilator 50 6/17/17 02:15 75 23 91/32 100 Mechanical Ventilator 50 6/17/17 02:00 87 24 114/85 100 Mechanical Ventilator 50 617/17 01:45 83 24 114/85 100 Mechanical Ventilator 50 617/17 01:30 80 24 101/34 100 Mechanical Ventilator 50 617/17 01:15 73 26 71/21 100 Mechanical Ventilator 50 617/17 01:10 78 27 50 6/17/17 01:00 75 25 115/56 100 Mechanical Ventilator 50 617/17 00:45 75 24 90/57 100 Mechanical Ventilator 50 617/17 00:30 75 24 63/41 100 Mechanical Ventilator 50 617/17 00:16 86/25 61717 00:15 72 23 94/32 99 Mechanical Ventilator 50 617/17 00:00 98.9 73 23 80/57 99 Mechanical Ventilator 50 617/17 00:00 50 6/16/17 23:45 72 23 101/37 99 Mechanical Ventilator 50 6/16/17 23:30 70 23 98/33 99 Mechanical Ventilator 50 6/16/17 23:15 70 23 100/33 99 Mechanical Ventilator 50 6/16/17 23:06 71 19 50 6/16/17 23:00 70 23 97/33 98 Mechanical Ventilator 50 6/16/17 22:45 70 21 /25 98 Mechanical Ventilator 50 6/16/17 22:30 73 21 91/25 98 Mechanical Ventilator 50 6/16/17 22:15 74 25 89/23 98 Mechanical Ventilator 50 6/16/17 22:00 77 24 87/30 99 Mechanical Ventilator 50 6/16/17 21:45 80 24 98/28 99 Mechanical Ventilator 50 6/16/17 21:30 84 24 98/28 99 Mechanical Ventilator 50 6/16/17 21:15 76 24 104/28 99 Mechanical Ventilator 50 6/16/17 21:00 75 23 103/34 100 Mechanical Ventilator 50 6/16/17 20:45 75 24 105/31 99 Mechanical Ventilator 50 6/16/17 20:41 78 22 50 6/16/17 20:30 77 26 106/29 96 Mechanical Ventilator 50 6/16/17 20:15 84 23 96/40 96 Mechanical Ventilator 50 6/16/17 20:00 50 6/16/17 20:00 81 6/16/17 20:00 84 23 96/40 96 Mechanical Ventilator 50 6/16/17 19:51 103/37 6/16/17 19:45 75 25 103/37 100 Mechanical Ventilator 50 6/16/17 19:30 79 26 79/58 100 Mechanical Ventilator 50 6/16/17 19:15 81 26 100/37 97 Mechanical Ventilator 50 6/16/17 19:00 99.1 77 25 112/31 100 Mechanical Ventilator 50 6/16/17 18:59 82 26 50 6/16/17 18:30 76 24 108/40 99 Mechanical Ventilator 50 6/16/17 18:00 82 27 118/36 98 Mechanical Ventilator 50 6/16/17 17:30 73 24 111/37 97 Mechanical Ventilator 50 6/16/17 17:00 73 24 107/50 96 Mechanical Ventilator 50 6/16/17 16:46 78 28 50 6/16/17 16:30 73 24 70/23 100 Mechanical Ventilator 50 6/16/17 16:29 110/36 6/16/17 16:00 99.0 73 24 113/34 100 Mechanical Ventilator 50 6/16/17 16:00 50 6/16/17 16:00 68 6/16/17 15:30 76 24 107/34 100 Mechanical Ventilator 50 6/16/17 15:09 72 18 50 6/16/17 15:00 76 24 106/42 100 Mechanical Ventilator 50 6/16/17 14:30 76 24 107/36 100 Mechanical Ventilator 50 6/16/17 14:00 72 24 116/89 100 Mechanical Ventilator 50 04/02/17 13:30 77 24 131/101 100 Mechanical Ventilator 50 04/02/17 13:00 76 24 201/150 100 Mechanical Ventilator 50 04/02/17 12:47 74 19 50 04/02/17 12:30 72 24 107/37 100 Mechanical Ventilator 50 04/02/17 12:19 97/35 04/02/17 12:00 73 04/02/17 12:00 98.9 76 24 115/90 100 Mechanical Ventilator 50 04/02/17 12:00 50 04/02/17 11:30 72 24 104/37 100 Mechanical Ventilator 50 04/02/17 11:15 74 25 115/41 100 Mechanical Ventilator 50 04/02/17 11:00 76 27 102/38 100 Mechanical Ventilator 50 04/02/17 10:56 78 28 50 04/02/17 10:45 78 22 109/75 99 Mechanical Ventilator 50 04/02/17 10:30 72 22 129/37 100 Mechanical Ventilator 50 04/02/17 10:15 71 22 120/34 100 Mechanical Ventilator 50 04/02/17 10:00 72 22 122/39 100 Mechanical Ventilator 50 04/02/17 09:45 72 22 117/37 100 Mechanical Ventilator 50 04/02/17 09:30 73 21 125/33 100 Mechanical Ventilator 50 04/02/17 09:15 73 21 124/36 100 Mechanical Ventilator 50 04/02/17 09:15 71 22 50 04/02/17 09:00 73 22 129/29 100 Mechanical Ventilator 50 04/02/17 08:45 72 22 111/33 100 Mechanical Ventilator 50 04/02/17 08:42 114/36 Labs: Labs Test 03/31/17 10:01 03/31/17 10:14 03/31/17 10:43 03/31/17 13:00 Urine Color Yellow Urine Appearance Slightly cloudy Urine pH 8 (4.5-8.0) Urine Specific Morris 1.020 (1.005-1.035) Urine Protein 3+ (NEGATIVE) Urine Glucose (UA) Negative (NEGATIVE) Urine Ketones Negative (NEGATIVE) Urine Occult Blood 4+ (NEGATIVE) Urine Nitrite Negative (NEGATIVE) Urine Bilirubin Negative (NEGATIVE) Urine Urobilinogen 1 MG/DL (0.0-1.0) Urine Leukocyte Esterase 3+ (NEGATIVE) Urine RBC 10-15 /HPF (0 - 2) Urine WBC Tntc /HPF (0 - 2) Urine Squamous Epithelial Cells Few /LPF (NONE/OCC) Urine Bacteria Many /HPF (NONE) White Blood Count 6.5 K/UL (4.8-10.8) Red Blood Count 4.33 M/UL (4.20-5.40) Hemoglobin 14.7 G/DL (12.0-16.0) Hematocrit 48.7 % (37.0-47.0) Mean Corpuscular Volume 112 FL (80-99) Mean Corpuscular Hemoglobin 33.9 PG (27.0-31.0) Mean Corpuscular Hemoglobin Concent 30.2 G/DL (32.0-36.0) Red Cell Distribution Width 14.8 % (11.6-14.8) Platelet Count 140 K/UL (150-450) Mean Platelet Volume 16.5 FL (6.5-10.1) Neutrophils (%) (Auto) % (45.0-75.0) Lymphocytes (%) (Auto) % (20.0-45.0) Monocytes (%) (Auto) % (1.0-10.0) Eosinophils (%) (Auto) % (0.0-3.0) Basophils (%) (Auto) % (0.0-2.0) Differential Total Cells Counted 100 Neutrophils % (Manual) 56 % (45-75) Lymphocytes % (Manual) 31 % (20-45) Monocytes % (Manual) 8 % (1-10) Eosinophils % (Manual) 0 % (0-3) Basophils % (Manual) 0 % (0-2) Band Neutrophils 5 % (0-8) Nucleated Red Blood Cells 2 /100 WBC Platelet Estimate Decreased Platelet Morphology Normal Macrocytosis 2+ Sodium Level 166 mEQ/L (135-145) Potassium Level 3.4 mEQ/L (3.4-4.9) Chloride Level 117 mEQ/L (98-107) Carbon Dioxide Level 33 mEQ/L (20-30) Anion Gap 16 (5-15) Blood Urea Nitrogen 112 mg/dL (7-23) Creatinine 2.2 mg/dL (0.5-0.9) Estimat Glomerular Filtration Rate mL/min (>60) Glucose Level 201 mg/dL (74-106) Lactic Acid Level 4.60 mmol/L (0.66-2.22) 3.60 mmol/L (0.66-2.22) Calcium Level 9.2 mg/dL (8.6-10.2) Total Bilirubin 0.4 mg/dL (0.0-1.2) Aspartate Amino Transf (AST/SGOT) 35 U/L (5-40) Alanine Aminotransferase (ALT/SGPT) 11 U/L (3-33) Alkaline Phosphatase 34 U/L (35-104) Total Creatine Kinase 451 U/L (26-140) Creatine Kinase MB < 1.5 ng/mL (< 3.8) Creatine Kinase MB Relative Index Troponin I < 0.30 ng/mL (<=0.30) Pro-B-Type Natriuretic Peptide 2610 pg/mL (0-125) Total Protein 8.1 g/dL (6.6-8.7) Albumin 3.1 g/dL (3.5-5.2) Globulin 5.0 g/dL Albumin/Globulin Ratio 0.6 (1.0-2.7) Valproic Acid (Depakene) Level 26 ug/mL (50-100) Arterial Blood pH 7.482 (7.350-7.450) Arterial Blood Partial Pressure CO2 39.5 mmHg (35.0-45.0) Arterial Blood Partial Pressure O2 68.1 mmHg (75.0-100.0) Arterial Blood HCO3 28.9 mmol/L (22.0-26.0) Arterial Blood Oxygen Saturation 93.2 % (92.0-98.0) Arterial Blood Base Excess 5.1 Neil Test Positive Test 03/31/17 23:00 04/01/17 05:25 04/01/17 08:30 04/01/17 08:45 White Blood Count 6.7 K/UL (4.8-10.8) 6.9 K/UL (4.8-10.8) Red Blood Count 2.94 M/UL (4.20-5.40) 2.93 M/UL (4.20-5.40) Hemoglobin 10.5 G/DL (12.0-16.0) 10.6 G/DL (12.0-16.0) Hematocrit 33.5 % (37.0-47.0) 32.6 % (37.0-47.0) Mean Corpuscular Volume 114 FL (80-99) 111 FL (80-99) Mean Corpuscular Hemoglobin 35.8 PG (27.0-31.0) 36.3 PG (27.0-31.0) Mean Corpuscular Hemoglobin Concent 31.4 G/DL (32.0-36.0) 32.5 G/DL (32.0-36.0) Red Cell Distribution Width 14.4 % (11.6-14.8) 14.7 % (11.6-14.8) Platelet Count 69 K/UL (150-450) 74 K/UL (150-450) Mean Platelet Volume 14.4 FL (6.5-10.1) 15.0 FL (6.5-10.1) Neutrophils (%) (Auto) % (45.0-75.0) % (45.0-75.0) Lymphocytes (%) (Auto) % (20.0-45.0) % (20.0-45.0) Monocytes (%) (Auto) % (1.0-10.0) % (1.0-10.0) Eosinophils (%) (Auto) % (0.0-3.0) % (0.0-3.0) Basophils (%) (Auto) % (0.0-2.0) % (0.0-2.0) Activated Partial Thromboplast Time 34 SEC (23-33) 100 SEC (23-33) Differential Total Cells Counted 100 Neutrophils % (Manual) 66 % (45-75) Lymphocytes % (Manual) 21 % (20-45) Monocytes % (Manual) 3 % (1-10) Eosinophils % (Manual) 0 % (0-3) Basophils % (Manual) 0 % (0-2) Band Neutrophils 10 % (0-8) Platelet Estimate Decreased Platelet Morphology Giant Platelets Rare Hypochromasia 1+ Anisocytosis 1+ Macrocytosis 1+ Sodium Level 161 mEQ/L (135-145) Potassium Level 2.4 mEQ/L (3.4-4.9) Chloride Level 118 mEQ/L (98-107) Carbon Dioxide Level 25 mEQ/L (20-30) Anion Gap 18 (5-15) Blood Urea Nitrogen 87 mg/dL (7-23) Creatinine 1.2 mg/dL (0.5-0.9) Estimat Glomerular Filtration Rate mL/min (>60) Glucose Level 137 mg/dL (74-106) Lactic Acid Level 3.70 mmol/L (0.66-2.22) 3.70 mmol/L (0.66-2.22) Calcium Level 7.9 mg/dL (8.6-10.2) Magnesium Level 2.2 mg/dL (1.7-2.5) Total Bilirubin 0.5 mg/dL (0.0-1.2) Aspartate Amino Transf (AST/SGOT) 20 U/L (5-40) Alanine Aminotransferase (ALT/SGPT) 8 U/L (3-33) Alkaline Phosphatase 38 U/L (35-104) Total Protein 6.4 g/dL (6.6-8.7) Albumin 2.3 g/dL (3.5-5.2) Globulin 4.1 g/dL Albumin/Globulin Ratio 0.5 (1.0-2.7) Arterial Blood pH 7.440 (7.350-7.450) Arterial Blood Partial Pressure CO2 36.9 mmHg (35.0-45.0) Arterial Blood Partial Pressure O2 95.9 mmHg (75.0-100.0) Arterial Blood HCO3 24.8 mmol/L (22.0-26.0) Arterial Blood Oxygen Saturation 97.1 % (92.0-98.0) Arterial Blood Base Excess 0.9 Neil Test Positive Test 04/01/17 14:24 04/01/17 15:00 04/01/17 23:05 04/02/17 04:25 Arterial Blood pH 7.410 (7.350-7.450) Arterial Blood Partial Pressure CO2 30.7 mmHg (35.0-45.0) Arterial Blood Partial Pressure O2 103.4 mmHg (75.0-100.0) Arterial Blood HCO3 19.4 mmol/L (22.0-26.0) Arterial Blood Oxygen Saturation 97.3 % (92.0-98.0) Arterial Blood Base Excess -4.3 Neil Test Positive White Blood Count 6.2 K/UL (4.8-10.8) 7.2 K/UL (4.8-10.8) Red Blood Count 2.71 M/UL (4.20-5.40) 2.96 M/UL (4.20-5.40) Hemoglobin 9.6 G/DL (12.0-16.0) 10.6 G/DL (12.0-16.0) Hematocrit 31.1 % (37.0-47.0) 33.1 % (37.0-47.0) Mean Corpuscular Volume 115 FL (80-99) 112 FL (80-99) Mean Corpuscular Hemoglobin 35.6 PG (27.0-31.0) 35.7 PG (27.0-31.0) Mean Corpuscular Hemoglobin Concent 31.1 G/DL (32.0-36.0) 31.9 G/DL (32.0-36.0) Red Cell Distribution Width 14.1 % (11.6-14.8) 14.3 % (11.6-14.8) Platelet Count 63 K/UL (150-450) 100 K/UL (150-450) Mean Platelet Volume 14.9 FL (6.5-10.1) 15.3 FL (6.5-10.1) Neutrophils (%) (Auto) % (45.0-75.0) % (45.0-75.0) Lymphocytes (%) (Auto) % (20.0-45.0) % (20.0-45.0) Monocytes (%) (Auto) % (1.0-10.0) % (1.0-10.0) Eosinophils (%) (Auto) % (0.0-3.0) % (0.0-3.0) Basophils (%) (Auto) % (0.0-2.0) % (0.0-2.0) Differential Total Cells Counted 100 Neutrophils % (Manual) 65 % (45-75) Lymphocytes % (Manual) 21 % (20-45) Monocytes % (Manual) 7 % (1-10) Eosinophils % (Manual) 0 % (0-3) Basophils % (Manual) 0 % (0-2) Band Neutrophils 7 % (0-8) Platelet Estimate Decreased Platelet Morphology Normal Giant Platelets Rare Anisocytosis 1+ Macrocytosis 1+ Activated Partial Thromboplast Time 39 SEC (23-33) 92 SEC (23-33) 173 SEC (23-33) Sodium Level 158 mEQ/L (135-145) 147 mEQ/L (135-145) Potassium Level 2.8 mEQ/L (3.4-4.9) 4.1 mEQ/L (3.4-4.9) 3.4 mEQ/L (3.4-4.9) Chloride Level 116 mEQ/L (98-107) 108 mEQ/L (98-107) Carbon Dioxide Level 22 mEQ/L (20-30) 16 mEQ/L (20-30) Anion Gap 20 (5-15) 23 (5-15) Blood Urea Nitrogen 74 mg/dL (7-23) 51 mg/dL (7-23) Creatinine 1.0 mg/dL (0.5-0.9) 0.8 mg/dL (0.5-0.9) Estimat Glomerular Filtration Rate mL/min (>60) mL/min (>60) Glucose Level 175 mg/dL (74-106) 324 mg/dL (74-106) Lactic Acid Level 5.50 mmol/L (0.66-2.22) Calcium Level 8.1 mg/dL (8.6-10.2) 8.2 mg/dL (8.6-10.2) Total Bilirubin 0.4 mg/dL (0.0-1.2) 0.4 mg/dL (0.0-1.2) Aspartate Amino Transf (AST/SGOT) 17 U/L (5-40) 25 U/L (5-40) Alanine Aminotransferase (ALT/SGPT) 8 U/L (3-33) 8 U/L (3-33) Alkaline Phosphatase 42 U/L (35-104) 61 U/L (35-104) Total Protein 6.2 g/dL (6.6-8.7) 6.0 g/dL (6.6-8.7) Albumin 2.3 g/dL (3.5-5.2) 2.0 g/dL (3.5-5.2) Globulin 3.9 g/dL 4.0 g/dL Albumin/Globulin Ratio 0.5 (1.0-2.7) 0.5 (1.0-2.7) Troponin I < 0.30 ng/mL (<=0.30) Test 04/02/17 13:40 Activated Partial Thromboplast Time 94 SEC (23-33) Objective: GENERAL: The patient is a well-developed female, intubated HEENT: Negative. sluggish pupils NECK: Supple. no JVD LUNGS: Moderate breath sounds. minimal rhonchi noted diffusely. no wheeze; symmetric CARDIAC: S1 and S2. Regular rate and rhythm.without MRG ABDOMEN: Soft and nontender. The patient has a G-tube in place . no HSM Extremities: No cyanosis or clubbing. noted contractures. Quadriparesis. withdrawn Micro: Microbiology Date/Time Source Procedure Growth Status 03/31/17 10:20 Blood Blood Culture - Preliminary NO GROWTH AFTER 24 HOURS Resulted 03/31/17 10:00 Blood Blood Culture - Preliminary NO GROWTH AFTER 24 HOURS Resulted 04/01/17 16:00 Sputum Gram Stain - Final Resulted 04/01/17 16:00 Sputum Culture - Preliminary Gram Negative Tommy Resulted 03/31/17 18:00 Nasal Nares MRSA Culture - Final NO METHICILLIN RESISTANT STAPH AUREUS... Complete 04/01/17 16:00 Stool Clostridium difficile Toxin Assay - Final Complete 03/31/17 10:01 Urine,Clean Catch Urine Culture - Preliminary Gram Negative Bacillus 1 Resulted 03/31/17 18:00 Rectum VRE Culture - Final Enterococcus Faecalis - Vre Complete Accucheck: 195 SANCHEZ NAVARRETE Apr 03, 2017 08:40
[2017-04-03] MEDS: Ascorbic Acid 500mg tab GT SCH ×2 (08:45→17:46)
[2017-04-03] MEDS: Valproic Acid 250mg/5ml Liquid GT SCH ×2 (08:45→21:10)
[2017-04-03] MEDS: Lacosamide 50mg tablet ORAL SCH ×2 (08:45→21:10)
[2017-04-03] MEDS: Meropenem 1gm/NS 110ml IVPB SCH ×4 (08:46→20:56)
[2017-04-03] MEDS: 1/2NS w/KCl 20mEq 1000ml 1,000 ML IV SCH (08:47)
[2017-04-03] MEDS ORDERED: Dyna-Hex 2% Top Sol 8oz TOPIC SCH (09:00)
[2017-04-03] MEDS ORDERED: NS 275ml ONE (09:32)
[2017-04-03 09:34] LABS: BAND NEUTROPHILS % (MANUAL) 0 % (0-8); BASOPHILS % (MANUAL) 0 % (0-2); EOSINOPHILS % (MANUAL) 3 % (0-3); LYMPHOCYTES % (MANUAL) 18 % (20-45); NEUTROPHILS % (MANUAL) 77 % (45-75); PLATELET ESTIMATE DECREASED; PLATELET MORPHOLOGY NORMAL; TOTAL CELLS COUNTED 100
[2017-04-03] MEDS: Vancomycin 750 MG in D5W 275 ML IVPB SCH (12:15)
[2017-04-03] MEDS ORDERED: Acetaminophen 650mg/20.3ml ORAL PRN (14:46)
[2017-04-03] MEDS ORDERED: KCl 10% 40mEq/30ml liquid NG ONE (18:05)
--- NOTE | 2017-04-03 20:45 | Cardiology Progress Note ---
Assessment/Plan Problem List: (1) ARF (acute renal failure) (2) UTI (urinary tract infection) (3) Pneumonia (4) Septic shock (5) Wide-complex tachycardia (6) Paroxysmal atrial fibrillation with rapid ventricular response Status: stable, unchanged Status Narrative Pt w/ episode of wide, followed by narrow complex tachycardia - appears to be AF w/ aberrency. Occurred in setting of sepsis, respiratory failure Rhythm reverted back to NSR w amiodarone ECHO w ? dextrocardia though EKG on adm appears w/ normal precordial R wave progression Assessment/Plan Continue amiodarone to maintain SR. Consider change to oral ( NGT) Continue vent support, broad spectrum IV antibiotics. Review ECHO - ? dextrocardia ? RVH Subjective ROS Limited/Unobtainable: Yes Subjective Intubated, not responsive Objective Last 24 Hour Vital Signs Date Time Temp Pulse Resp B/P Pulse Ox O2 Delivery O2 Flow Rate FiO2 04/03/17 20:00 98.5 83 23 105/36 100 Mechanical Ventilator 50 04/03/17 20:00 50 04/03/17 19:30 87 24 101/41 100 Mechanical Ventilator 50 04/03/17 19:05 82 24 50 04/03/17 19:00 83 28 98/39 100 Mechanical Ventilator 50 04/03/17 18:30 85 24 101/42 100 Mechanical Ventilator 50 04/03/17 18:15 85 24 112/41 99 Mechanical Ventilator 50 04/03/17 18:00 83 23 109/37 99 Mechanical Ventilator 50 04/03/17 17:45 81 25 121/34 99 Mechanical Ventilator 50 04/03/17 17:30 81 25 106/39 100 Mechanical Ventilator 50 04/03/17 17:15 82 25 101/37 100 Mechanical Ventilator 50 04/03/17 17:06 78 27 50 04/03/17 17:00 79 27 110/37 100 Mechanical Ventilator 50 04/03/17 16:45 80 24 101/39 100 Mechanical Ventilator 50 04/03/17 16:30 81 22 104/28 98 Mechanical Ventilator 50 04/03/17 16:15 99.2 78 23 97/38 100 Mechanical Ventilator 50 04/03/17 16:11 92/42 04/03/17 16:00 80 04/03/17 16:00 78 17 92/42 100 Mechanical Ventilator 50 04/03/17 16:00 50 6/17/17 15:30 75 25 116/32 100 Mechanical Ventilator 50 6/17/17 15:25 74 25 50 6/17/17 15:00 94 21 102/36 100 Mechanical Ventilator 50 6/17/17 14:45 74 22 94/35 100 Mechanical Ventilator 50 6/17/17 14:30 74 23 88/35 100 Mechanical Ventilator 50 6/17/17 14:15 74 23 95/37 100 Mechanical Ventilator 50 6/17/17 14:00 73 23 103/34 100 Mechanical Ventilator 50 6/17/17 13:45 74 23 119/31 100 Mechanical Ventilator 50 6/17/17 13:30 76 26 119/36 100 Mechanical Ventilator 50 6/17/17 13:15 75 21 96/32 100 Mechanical Ventilator 50 6/17/17 13:00 74 21 96/43 100 Mechanical Ventilator 50 6/17/17 12:45 75 24 107/33 100 Mechanical Ventilator 50 6/17/17 12:42 66 23 50 6/17/17 12:30 74 22 103/33 100 Mechanical Ventilator 50 617/17 12:15 74 22 101/37 100 Mechanical Ventilator 50 617/17 12:00 99.1 75 24 101/37 100 Mechanical Ventilator 50 6/17/17 12:00 72 6/17/17 12:00 50 6/17/17 11:30 74 25 103/28 100 Mechanical Ventilator 50 6/17/17 11:15 68 21 95/30 100 Mechanical Ventilator 50 6/17/17 11:00 98 11 102/41 100 Mechanical Ventilator 50 6/17/17 10:48 77 16 50 6/17/17 10:30 76 26 105/36 100 Mechanical Ventilator 50 6/17/17 10:15 79 25 105/37 100 Mechanical Ventilator 50 6/17/17 10:00 71 18 113/26 100 Mechanical Ventilator 50 6/17/17 09:45 72 16 120/21 100 Mechanical Ventilator 50 6/17/17 09:30 78 20 113/26 100 Mechanical Ventilator 50 617/17 09:00 75 19 105/30 100 Mechanical Ventilator 50 6/17/17 08:45 80 25 50 6/17/17 08:30 74 21 150/120 100 Mechanical Ventilator 50 6/17/17 08:00 71 6/17/17 08:00 99.5 71 19 111/41 100 Mechanical Ventilator 50 6/17/17 08:00 50 6/17/17 07:30 78 22 101/76 100 Mechanical Ventilator 50 6/17/17 07:00 78 19 50 6/17/17 07:00 76 21 106/35 100 Mechanical Ventilator 50 6/17/17 06:45 77 22 110/35 100 Mechanical Ventilator 50 6/17/17 06:30 73 21 71/45 100 Mechanical Ventilator 50 6/17/17 06:15 70 21 115/55 100 Mechanical Ventilator 50 6/17/17 06:00 75 21 115/55 100 Mechanical Ventilator 50 6/17/17 05:45 73 21 118/30 100 Mechanical Ventilator 50 6/17/17 05:30 73 21 155/24 100 Mechanical Ventilator 50 6/17/17 05:27 90/34 6/17/17 05:15 76 21 153/103 100 Mechanical Ventilator 50 6/17/17 05:14 83 27 50 6/17/17 05:00 70 21 113/32 100 Mechanical Ventilator 50 6/17/17 04:45 70 21 91/30 100 Mechanical Ventilator 50 6/17/17 04:30 79 21 91/32 100 Mechanical Ventilator 50 6/17/17 04:15 79 21 91/56 100 Mechanical Ventilator 50 6/17/17 04:00 50 6/17/17 04:00 99.1 70 21 90/30 100 Mechanical Ventilator 50 6/17/17 03:45 70 21 91/56 100 Mechanical Ventilator 50 6/17/17 03:30 73 21 90/56 100 Mechanical Ventilator 50 6/17/17 03:15 79 21 91/32 100 Mechanical Ventilator 50 6/17/17 03:09 70 23 50 6/17/17 03:00 70 21 91/30 100 Mechanical Ventilator 50 6/17/17 02:45 71 23 91/30 100 Mechanical Ventilator 50 6/17/17 02:30 77 23 91/32 100 Mechanical Ventilator 50 6/17/17 02:15 75 23 91/32 100 Mechanical Ventilator 50 6/17/17 02:00 87 24 114/85 100 Mechanical Ventilator 50 6/17/17 01:45 83 24 114/85 100 Mechanical Ventilator 50 6/17/17 01:30 80 24 101/34 100 Mechanical Ventilator 50 6/17/17 01:15 73 26 71/21 100 Mechanical Ventilator 50 6/17/17 01:10 78 27 50 6/17/17 01:00 75 25 115/56 100 Mechanical Ventilator 50 04/03/17 00:45 75 24 90/57 100 Mechanical Ventilator 50 04/03/17 00:30 75 24 63/41 100 Mechanical Ventilator 50 04/03/17 00:16 86/25 04/03/17 00:15 72 23 94/32 99 Mechanical Ventilator 50 04/03/17 00:00 98.9 73 23 80/57 99 Mechanical Ventilator 50 04/03/17 00:00 50 04/02/17 23:45 72 23 101/37 99 Mechanical Ventilator 50 04/02/17 23:30 70 23 98/33 99 Mechanical Ventilator 50 04/02/17 23:15 70 23 100/33 99 Mechanical Ventilator 50 04/02/17 23:06 71 19 50 04/02/17 23:00 70 23 97/33 98 Mechanical Ventilator 50 04/02/17 22:45 70 21 91/25 98 Mechanical Ventilator 50 04/02/17 22:30 73 21 91/25 98 Mechanical Ventilator 50 04/02/17 22:15 74 25 89/23 98 Mechanical Ventilator 50 04/02/17 22:00 77 24 87/30 99 Mechanical Ventilator 50 04/02/17 21:45 80 24 98/28 99 Mechanical Ventilator 50 04/02/17 21:30 84 24 98/28 99 Mechanical Ventilator 50 04/02/17 21:15 76 24 104/28 99 Mechanical Ventilator 50 04/02/17 21:00 75 23 103/34 100 Mechanical Ventilator 50 04/02/17 20:45 75 24 105/31 99 Mechanical Ventilator 50 04/02/17 20:41 78 22 50 General Appearance: WD/WN, on vent EENT: PERRL/EOMI Neck: supple, no JVD Rhythm: NSR Cardiovascular: normal rate, regular rhythm, no gallop/murmur Respiratory/Chest: lungs clear - clear anteriorly Abdomen: non tender, soft, other - + g tube Extremities: other - contractures of upper, lower extrem Intake and Output 04/02/17 04/03/17 19:00 07:00 Intake Total 3410.87 ml 3069.968 ml Balance 3410.87 ml 3069.968 ml IV Total 3215.87 ml 2784.968 ml Tube Feeding 165 ml 255 ml Other 30 ml 30 ml # Voids [phone] # Bowel Movements 5 5 Laboratory Tests Test 04/03/17 07:25 White Blood Count 4.3 K/UL (4.8-10.8) L Red Blood Count 2.52 M/UL (4.20-5.40) L Hemoglobin 9.3 G/DL (12.0-16.0) L Hematocrit 27.1 % (37.0-47.0) L Mean Corpuscular Volume 108 FL (80-99) H Mean Corpuscular Hemoglobin 37.0 PG (27.0-31.0) H Mean Corpuscular Hemoglobin Concent 34.4 G/DL (32.0-36.0) Red Cell Distribution Width 13.3 % (11.6-14.8) Platelet Count 61 K/UL (150-450) L Mean Platelet Volume 13.2 FL (6.5-10.1) H Neutrophils (%) (Auto) % (45.0-75.0) Lymphocytes (%) (Auto) % (20.0-45.0) Monocytes (%) (Auto) % (1.0-10.0) Eosinophils (%) (Auto) % (0.0-3.0) Basophils (%) (Auto) % (0.0-2.0) Differential Total Cells Counted 100 Neutrophils % (Manual) 77 % (45-75) H Lymphocytes % (Manual) 18 % (20-45) L Monocytes % (Manual) 2 % (1-10) Eosinophils % (Manual) 3 % (0-3) Basophils % (Manual) 0 % (0-2) Band Neutrophils 0 % (0-8) Platelet Estimate Decreased L Platelet Morphology Normal Red Blood Cell Morphology Normal Activated Partial Thromboplast Time 72 SEC (23-33) H Sodium Level 143 mEQ/L (135-145) Potassium Level 2.8 mEQ/L (3.4-4.9) L Chloride Level 106 mEQ/L (98-107) Carbon Dioxide Level 19 mEQ/L (20-30) L Anion Gap 18 (5-15) H Blood Urea Nitrogen 26 mg/dL (7-23) #H Creatinine 0.5 mg/dL (0.5-0.9) Estimat Glomerular Filtration Rate mL/min (>60) Glucose Level 169 mg/dL (74-106) #H Calcium Level 8.1 mg/dL (8.6-10.2) L Total Bilirubin 0.4 mg/dL (0.0-1.2) Aspartate Amino Transf (AST/SGOT) 15 U/L (5-40) Alanine Aminotransferase (ALT/SGPT) 7 U/L (3-33) Alkaline Phosphatase 75 U/L (35-104) Total Protein 5.5 g/dL (6.6-8.7) L Albumin 1.9 g/dL (3.5-5.2) L Globulin 3.6 g/dL Albumin/Globulin Ratio 0.5 (1.0-2.7) L Microbiology Date/Time Source Procedure Growth Status 04/01/17 16:00 Sputum Gram Stain - Final Resulted 04/01/17 16:00 Sputum Culture - Preliminary Gram Negative Tommy Resulted 04/01/17 16:00 Stool Clostridium difficile Toxin Assay - Final Complete SIXTO LOOMIS Apr 03, 2017 20:45
[2017-04-03] MEDS ORDERED: Amiodarone 900 MG in D5W 500ml 482 ML IV SCH (23:00)
[2017-04-04] VITALS (44 sets, daily range): BP systolic 86–132; BP diastolic 34–71
[2017-04-04] MEDS: 1/2NS w/KCl 20mEq 1000ml 1,000 ML IV SCH (03:30)
[2017-04-04] MEDS: Heparin 25,000u/D5W 500ml 500 ML IV SCH (04:30)
[2017-04-04 05:24] LABS: ALANINE AMINOTRANSFERASE 7 U/L (3-33); ALBUMIN/GLOBULIN RATIO 0.5 (1.0-2.7); ANION GAP 14 (5-15); ASPARTATE AMINO TRANSFERASE 15 U/L (5-40); CALCIUM 8.6 mg/dL (8.6-10.2); CARBON DIOXIDE 21 mEQ/L (20-30); CHLORIDE 110 mEQ/L (98-107); CREATININE 0.5 mg/dL (0.5-0.9); HEMOLYSIS 6; POTASSIUM 4.3 mEQ/L (3.4-4.9); SODIUM 145 mEQ/L (135-145); TOTAL PROTEIN 4.9 g/dL (6.6-8.7)
[2017-04-04 05:28] LABS: MEAN CORPUSCULAR HEMOGLOBIN 36.1 PG (27.0-31.0); MEAN CORPUSCULAR HGB CONC 33.1 G/DL (32.0-36.0); MEAN CORPUSCULAR VOLUME 109 FL (80-99); MEAN PLATELET VOLUME 14.9 FL (6.5-10.1); PLATELET COUNT 59 K/UL (150-450); RED BLOOD COUNT 2.28 M/UL (4.20-5.40); RED CELL DISTRIBUTION WIDTH 13.7 % (11.6-14.8); WHITE BLOOD COUNT 3.1 K/UL (4.8-10.8)
[2017-04-04] MEDS ORDERED: Heparin 25,000u/D5W 500ml 500 ML IV SCH (05:40)
--- NOTE | 2017-04-04 07:26 | Critical Care Progress Note ---
Assessment/Plan Assessment/Plan IMPRESSION: 1. Respiratory failure . 2. Hypoxemia. 3. Evidence of pulmonary infiltrates consistent with pneumonia. 4. Hypotension. 5. Quadriparesis. 6. Bedbound state. 7. deep venous thrombosis. 8. Gastrostomy tube. 9. Known aspiration. 10. UTI 11. diarrhea PLAN ventilator as is possible wean in am cultures noted IV antibiotics IV hydration as is IV heparing pressors off monitor hemodynamics monitor oxygen needs ICU care as is for now critical at present close monitoring required follow up cultures and adjust antibiotics reviewed ICU management medications/laboratory data/nursing notes/ICU care reviewed in detail note reviewed and edited care discussed with RN and RT ICU time spent 36 minutes Critical Care - Subjective Interval Events: care noted and reviewed noted with liquid stool on the ventilator ROS Limited/Unobtainable: Yes EKG Rhythm: Sinus Rhythm Residuals: minimal Tube Feeding Tolerated: yes I&O: Intake and Output 04/03/17 04/04/17 19:00 07:00 Intake Total 2327.17 ml 1529.30 ml Output Total 1385 ml 710 ml Balance 942.17 ml 819.30 ml Intake Free Water 200 ml 110 ml IV Total 1737.17 ml 1089.30 ml Tube Feeding 360 ml 330 ml Other 30 ml Output Urine Total 1385 ml 710 ml # Bowel Movements 1 3 Critical Care - Objective ET-Tube: 7.5 ET Position: 20 Last 24 Hour Vital Signs Date Time Temp Pulse Resp B/P Pulse Ox O2 Delivery O2 Flow Rate FiO2 04/04/17 07:05 80 23 50 04/04/17 06:30 74 20 90/38 100 Mechanical Ventilator 50 04/04/17 06:00 74 20 97/34 100 Mechanical Ventilator 50 04/04/17 05:30 73 17 90/38 100 Mechanical Ventilator 50 04/04/17 05:10 73 17 50 04/04/17 05:00 78 25 98/41 100 Mechanical Ventilator 50 04/04/17 04:30 71 16 95/38 100 Mechanical Ventilator 50 04/04/17 04:00 50 04/04/17 04:00 98.9 95 22 132/36 100 Mechanical Ventilator 50 04/04/17 03:30 77 18 100/41 100 Mechanical Ventilator 50 04/04/17 03:05 72 15 50 04/04/17 03:00 72 20 88/39 100 Mechanical Ventilator 50 6/18/17 02:30 70 19 93/40 100 Mechanical Ventilator 50 6/18/17 02:00 77 15 93/40 100 Mechanical Ventilator 50 6/18/17 01:30 78 16 90/43 100 Mechanical Ventilator 50 6/18/17 01:06 73 17 50 6/18/17 01:00 73 17 120/40 100 Mechanical Ventilator 50 6/18/17 00:30 71 18 104/37 100 Mechanical Ventilator 50 6/18/17 00:00 98.7 74 22 94/37 100 Mechanical Ventilator 50 6/18/17 00:00 50 6/17/17 23:30 74 18 90/35 100 Mechanical Ventilator 50 6/17/17 23:18 83 20 50 6/17/17 23:00 78 20 108/39 100 Mechanical Ventilator 50 6/17/17 22:30 83 25 97/52 100 Mechanical Ventilator 50 6/17/17 22:00 85 26 97/32 100 Mechanical Ventilator 50 6/17/17 21:30 83 25 107/36 99 Mechanical Ventilator 50 6/17/17 21:11 87 25 50 6/17/17 21:00 87 28 93/37 100 Mechanical Ventilator 50 6/17/17 20:30 83 24 96/39 99 Mechanical Ventilator 50 6/17/17 20:00 98.5 83 23 105/36 100 Mechanical Ventilator 50 6/17/17 20:00 50 6/17/17 19:30 87 24 101/41 100 Mechanical Ventilator 50 6/17/17 19:05 82 24 50 6/17/17 19:00 83 28 98/39 100 Mechanical Ventilator 50 6/17/17 18:30 85 24 101/42 100 Mechanical Ventilator 50 6/17/17 18:15 85 24 112/41 99 Mechanical Ventilator 50 6/17/17 18:00 83 23 109/37 99 Mechanical Ventilator 50 6/17/17 17:45 81 25 121/34 99 Mechanical Ventilator 50 6/17/17 17:30 81 25 106/39 100 Mechanical Ventilator 50 6/17/17 17:15 82 25 101/37 100 Mechanical Ventilator 50 6/17/17 17:06 78 27 50 6/17/17 17:00 79 27 110/37 100 Mechanical Ventilator 50 6/17/17 16:45 80 24 101/39 100 Mechanical Ventilator 50 6/17/17 16:30 81 22 104/28 98 Mechanical Ventilator 50 6/17/17 16:15 99.2 78 23 97/38 100 Mechanical Ventilator 50 6/17/17 16:11 92/42 6/17/17 16:00 80 6/17/17 16:00 78 17 92/42 100 Mechanical Ventilator 50 6/17/17 16:00 50 6/17/17 15:30 75 25 116/32 100 Mechanical Ventilator 50 6/17/17 15:25 74 25 50 6/17/17 15:00 94 21 102/36 100 Mechanical Ventilator 50 6/17/17 14:45 74 22 94/35 100 Mechanical Ventilator 50 6/17/17 14:30 74 23 88/35 100 Mechanical Ventilator 50 6/17/17 14:15 74 23 95/37 100 Mechanical Ventilator 50 6/17/17 14:00 73 23 103/34 100 Mechanical Ventilator 50 6/17/17 13:45 74 23 119/31 100 Mechanical Ventilator 50 6/17/17 13:30 76 26 119/36 100 Mechanical Ventilator 50 6/17/17 13:15 75 21 96/32 100 Mechanical Ventilator 50 6/17/17 13:00 74 21 96/43 100 Mechanical Ventilator 50 6/17/17 12:45 75 24 107/33 100 Mechanical Ventilator 50 6/17/17 12:42 66 23 50 6/17/17 12:30 74 22 103/33 100 Mechanical Ventilator 50 6/17/17 12:15 74 22 101/37 100 Mechanical Ventilator 50 6/17/17 12:00 99.1 75 24 101/37 100 Mechanical Ventilator 50 6/17/17 12:00 72 6/17/17 12:00 50 6/17/17 11:30 74 25 103/28 100 Mechanical Ventilator 50 6/17/17 11:15 68 21 95/30 100 Mechanical Ventilator 50 6/17/17 11:00 98 11 102/41 100 Mechanical Ventilator 50 6/17/17 10:48 77 16 50 6/17/17 10:30 76 26 105/36 100 Mechanical Ventilator 50 6/17/17 10:15 79 25 105/37 100 Mechanical Ventilator 50 6/17/17 10:00 71 18 113/26 100 Mechanical Ventilator 50 6/17/17 09:45 72 16 120/21 100 Mechanical Ventilator 50 6/17/17 09:30 78 20 113/26 100 Mechanical Ventilator 50 6/17/17 09:00 75 19 105/30 100 Mechanical Ventilator 50 04/03/17 08:45 80 25 50 04/03/17 08:30 74 21 150/120 100 Mechanical Ventilator 50 04/03/17 08:00 71 04/03/17 08:00 99.5 71 19 111/41 100 Mechanical Ventilator 50 04/03/17 08:00 50 04/03/17 07:30 78 22 101/76 100 Mechanical Ventilator 50 Labs: Labs Test 04/01/17 08:30 04/01/17 08:45 04/01/17 14:24 04/01/17 15:00 Lactic Acid Level 3.70 mmol/L (0.66-2.22) 5.50 mmol/L (0.66-2.22) Arterial Blood pH 7.440 (7.350-7.450) 7.410 (7.350-7.450) Arterial Blood Partial Pressure CO2 36.9 mmHg (35.0-45.0) 30.7 mmHg (35.0-45.0) Arterial Blood Partial Pressure O2 95.9 mmHg (75.0-100.0) 103.4 mmHg (75.0-100.0) Arterial Blood HCO3 24.8 mmol/L (22.0-26.0) 19.4 mmol/L (22.0-26.0) Arterial Blood Oxygen Saturation 97.1 % (92.0-98.0) 97.3 % (92.0-98.0) Arterial Blood Base Excess 0.9 -4.3 Neil Test Positive Positive White Blood Count 6.2 K/UL (4.8-10.8) Red Blood Count 2.71 M/UL (4.20-5.40) Hemoglobin 9.6 G/DL (12.0-16.0) Hematocrit 31.1 % (37.0-47.0) Mean Corpuscular Volume 115 FL (80-99) Mean Corpuscular Hemoglobin 35.6 PG (27.0-31.0) Mean Corpuscular Hemoglobin Concent 31.1 G/DL (32.0-36.0) Red Cell Distribution Width 14.1 % (11.6-14.8) Platelet Count 63 K/UL (150-450) Mean Platelet Volume 14.9 FL (6.5-10.1) Neutrophils (%) (Auto) % (45.0-75.0) Lymphocytes (%) (Auto) % (20.0-45.0) Monocytes (%) (Auto) % (1.0-10.0) Eosinophils (%) (Auto) % (0.0-3.0) Basophils (%) (Auto) % (0.0-2.0) Differential Total Cells Counted 100 Neutrophils % (Manual) 65 % (45-75) Lymphocytes % (Manual) 21 % (20-45) Monocytes % (Manual) 7 % (1-10) Eosinophils % (Manual) 0 % (0-3) Basophils % (Manual) 0 % (0-2) Band Neutrophils 7 % (0-8) Platelet Estimate Decreased Platelet Morphology Normal Giant Platelets Rare Anisocytosis 1+ Macrocytosis 1+ Activated Partial Thromboplast Time 39 SEC (23-33) Sodium Level 158 mEQ/L (135-145) Potassium Level 2.8 mEQ/L (3.4-4.9) Chloride Level 116 mEQ/L (98-107) Carbon Dioxide Level 22 mEQ/L (20-30) Anion Gap 20 (5-15) Blood Urea Nitrogen 74 mg/dL (7-23) Creatinine 1.0 mg/dL (0.5-0.9) Estimat Glomerular Filtration Rate mL/min (>60) Glucose Level 175 mg/dL (74-106) Calcium Level 8.1 mg/dL (8.6-10.2) Total Bilirubin 0.4 mg/dL (0.0-1.2) Aspartate Amino Transf (AST/SGOT) 17 U/L (5-40) Alanine Aminotransferase (ALT/SGPT) 8 U/L (3-33) Alkaline Phosphatase 42 U/L (35-104) Total Protein 6.2 g/dL (6.6-8.7) Albumin 2.3 g/dL (3.5-5.2) Globulin 3.9 g/dL Albumin/Globulin Ratio 0.5 (1.0-2.7) Test 04/01/17 23:05 04/02/17 04:25 04/02/17 13:40 04/03/17 07:25 Activated Partial Thromboplast Time 92 SEC (23-33) 173 SEC (23-33) 94 SEC (23-33) 72 SEC (23-33) Potassium Level 4.1 mEQ/L (3.4-4.9) 3.4 mEQ/L (3.4-4.9) 2.8 mEQ/L (3.4-4.9) Troponin I < 0.30 ng/mL (<=0.30) White Blood Count 7.2 K/UL (4.8-10.8) 4.3 K/UL (4.8-10.8) Red Blood Count 2.96 M/UL (4.20-5.40) 2.52 M/UL (4.20-5.40) Hemoglobin 10.6 G/DL (12.0-16.0) 9.3 G/DL (12.0-16.0) Hematocrit 33.1 % (37.0-47.0) 27.1 % (37.0-47.0) Mean Corpuscular Volume 112 FL (80-99) 108 FL (80-99) Mean Corpuscular Hemoglobin 35.7 PG (27.0-31.0) 37.0 PG (27.0-31.0) Mean Corpuscular Hemoglobin Concent 31.9 G/DL (32.0-36.0) 34.4 G/DL (32.0-36.0) Red Cell Distribution Width 14.3 % (11.6-14.8) 13.3 % (11.6-14.8) Platelet Count 100 K/UL (150-450) 61 K/UL (150-450) Mean Platelet Volume 15.3 FL (6.5-10.1) 13.2 FL (6.5-10.1) Neutrophils (%) (Auto) % (45.0-75.0) % (45.0-75.0) Lymphocytes (%) (Auto) % (20.0-45.0) % (20.0-45.0) Monocytes (%) (Auto) % (1.0-10.0) % (1.0-10.0) Eosinophils (%) (Auto) % (0.0-3.0) % (0.0-3.0) Basophils (%) (Auto) % (0.0-2.0) % (0.0-2.0) Sodium Level 147 mEQ/L (135-145) 143 mEQ/L (135-145) Chloride Level 108 mEQ/L (98-107) 106 mEQ/L (98-107) Carbon Dioxide Level 16 mEQ/L (20-30) 19 mEQ/L (20-30) Anion Gap 23 (5-15) 18 (5-15) Blood Urea Nitrogen 51 mg/dL (7-23) 26 mg/dL (7-23) Creatinine 0.8 mg/dL (0.5-0.9) 0.5 mg/dL (0.5-0.9) Estimat Glomerular Filtration Rate mL/min (>60) mL/min (>60) Glucose Level 324 mg/dL (74-106) 169 mg/dL (74-106) Calcium Level 8.2 mg/dL (8.6-10.2) 8.1 mg/dL (8.6-10.2) Total Bilirubin 0.4 mg/dL (0.0-1.2) 0.4 mg/dL (0.0-1.2) Aspartate Amino Transf (AST/SGOT) 25 U/L (5-40) 15 U/L (5-40) Alanine Aminotransferase (ALT/SGPT) 8 U/L (3-33) 7 U/L (3-33) Alkaline Phosphatase 61 U/L (35-104) 75 U/L (35-104) Total Protein 6.0 g/dL (6.6-8.7) 5.5 g/dL (6.6-8.7) Albumin 2.0 g/dL (3.5-5.2) 1.9 g/dL (3.5-5.2) Globulin 4.0 g/dL 3.6 g/dL Albumin/Globulin Ratio 0.5 (1.0-2.7) 0.5 (1.0-2.7) Differential Total Cells Counted 100 Neutrophils % (Manual) 77 % (45-75) Lymphocytes % (Manual) 18 % (20-45) Monocytes % (Manual) 2 % (1-10) Eosinophils % (Manual) 3 % (0-3) Basophils % (Manual) 0 % (0-2) Band Neutrophils 0 % (0-8) Platelet Estimate Decreased Platelet Morphology Normal Red Blood Cell Morphology Normal Test 04/03/17 23:05 04/04/17 04:00 Vancomycin Level Trough 23.2 ug/mL (5.0-12.0) White Blood Count 3.1 K/UL (4.8-10.8) Red Blood Count 2.28 M/UL (4.20-5.40) Hemoglobin 8.2 G/DL (12.0-16.0) Hematocrit 24.8 % (37.0-47.0) Mean Corpuscular Volume 109 FL (80-99) Mean Corpuscular Hemoglobin 36.1 PG (27.0-31.0) Mean Corpuscular Hemoglobin Concent 33.1 G/DL (32.0-36.0) Red Cell Distribution Width 13.7 % (11.6-14.8) Platelet Count 59 K/UL (150-450) Mean Platelet Volume 14.9 FL (6.5-10.1) Neutrophils (%) (Auto) % (45.0-75.0) Lymphocytes (%) (Auto) % (20.0-45.0) Monocytes (%) (Auto) % (1.0-10.0) Eosinophils (%) (Auto) % (0.0-3.0) Basophils (%) (Auto) % (0.0-2.0) Activated Partial Thromboplast Time 98 SEC (23-33) Sodium Level 145 mEQ/L (135-145) Potassium Level 4.3 mEQ/L (3.4-4.9) Chloride Level 110 mEQ/L (98-107) Carbon Dioxide Level 21 mEQ/L (20-30) Anion Gap 14 (5-15) Blood Urea Nitrogen 29 mg/dL (7-23) Creatinine 0.5 mg/dL (0.5-0.9) Estimat Glomerular Filtration Rate mL/min (>60) Glucose Level 92 mg/dL (74-106) Calcium Level 8.6 mg/dL (8.6-10.2) Total Bilirubin 0.2 mg/dL (0.0-1.2) Aspartate Amino Transf (AST/SGOT) 15 U/L (5-40) Alanine Aminotransferase (ALT/SGPT) 7 U/L (3-33) Alkaline Phosphatase 91 U/L (35-104) Total Protein 4.9 g/dL (6.6-8.7) Albumin 1.7 g/dL (3.5-5.2) Globulin 3.2 g/dL Albumin/Globulin Ratio 0.5 (1.0-2.7) Objective: GENERAL: The patient is a well-developed female, intubated HEENT: Negative. sluggish pupils NECK: Supple. no JVD LUNGS: Moderate breath sounds. minimal rhonchi noted diffusely. no wheeze; symmetric CARDIAC: S1 and S2. Regular rate and rhythm.without MRG ABDOMEN: Soft and nontender. The patient has a G-tube in place . no HSM Extremities: No cyanosis or clubbing. noted contractures. Quadriparesis. withdrawn Micro: Microbiology Date/Time Source Procedure Growth Status 04/01/17 16:00 Sputum Gram Stain - Final Complete 04/01/17 16:00 Sputum Culture - Final Pseudomonas Aeruginosa Diphtheroids Complete 04/01/17 16:00 Stool Clostridium difficile Toxin Assay - Final Complete Accucheck: 195 SANCHEZ NAVARRETE Apr 04, 2017 07:26
--- NOTE | 2017-04-04 08:01 | Infectious Diseases Prog Note ---
Assessment/Plan Assessment/Plan A 1. UTI 2. pneumonia with pseudomonas 3. respiratory failure 4. multiple sclerosis 5. seizure disorder P; Change Meropenem to Azactam Requested microbiology to check Pseudomonas Azactam sensitivity Discontinue Vancomycin Add Amikacin inhaler CXR in am Subjective ROS Limited/Unobtainable: Yes Allergies: Coded Allergies: CEFTRIAXONE (Verified Allergy, Unknown, 03/31/17) PENICILLINS (Verified Allergy, Unknown, 03/31/17) SULFA (SULFONAMIDE ANTIBIOTICS) (Verified Allergy, Unknown, 03/31/17) TAZOBACTAM (Verified Allergy, Unknown, 03/31/17) Objective Vital Signs Last 24 Hour Vital Signs Date Time Temp Pulse Resp B/P Pulse Ox O2 Delivery O2 Flow Rate FiO2 04/04/17 07:05 80 23 50 04/04/17 06:30 74 20 90/38 100 Mechanical Ventilator 50 04/04/17 06:00 74 20 97/34 100 Mechanical Ventilator 50 04/04/17 05:30 73 17 90/38 100 Mechanical Ventilator 50 04/04/17 05:10 73 17 50 04/04/17 05:00 78 25 98/41 100 Mechanical Ventilator 50 04/04/17 04:30 71 16 95/38 100 Mechanical Ventilator 50 04/04/17 04:00 50 04/04/17 04:00 98.9 95 22 132/36 100 Mechanical Ventilator 50 04/04/17 03:30 77 18 100/41 100 Mechanical Ventilator 50 04/04/17 03:05 72 15 50 04/04/17 03:00 72 20 88/39 100 Mechanical Ventilator 50 04/04/17 02:30 70 19 93/40 100 Mechanical Ventilator 50 04/04/17 02:00 77 15 93/40 100 Mechanical Ventilator 50 04/04/17 01:30 78 16 90/43 100 Mechanical Ventilator 50 04/04/17 01:06 73 17 50 04/04/17 01:00 73 17 120/40 100 Mechanical Ventilator 50 04/04/17 00:30 71 18 104/37 100 Mechanical Ventilator 50 04/04/17 00:00 98.7 74 22 94/37 100 Mechanical Ventilator 50 04/04/17 00:00 50 04/03/17 23:30 74 18 90/35 100 Mechanical Ventilator 50 04/03/17 23:18 83 20 50 04/03/17 23:00 78 20 108/39 100 Mechanical Ventilator 50 6/17/17 22:30 83 25 97/52 100 Mechanical Ventilator 50 6/17/17 22:00 85 26 97/32 100 Mechanical Ventilator 50 6/17/17 21:30 83 25 107/36 99 Mechanical Ventilator 50 6/17/17 21:11 87 25 50 6/17/17 21:00 87 28 93/37 100 Mechanical Ventilator 50 6/17/17 20:30 83 24 96/39 99 Mechanical Ventilator 50 6/17/17 20:00 98.5 83 23 105/36 100 Mechanical Ventilator 50 6/17/17 20:00 50 6/17/17 19:30 87 24 101/41 100 Mechanical Ventilator 50 6/17/17 19:05 82 24 50 6/17/17 19:00 83 28 98/39 100 Mechanical Ventilator 50 6/17/17 18:30 85 24 101/42 100 Mechanical Ventilator 50 6/17/17 18:15 85 24 112/41 99 Mechanical Ventilator 50 6/17/17 18:00 83 23 109/37 99 Mechanical Ventilator 50 6/17/17 17:45 81 25 121/34 99 Mechanical Ventilator 50 6/17/17 17:30 81 25 106/39 100 Mechanical Ventilator 50 6/17/17 17:15 82 25 101/37 100 Mechanical Ventilator 50 6/17/17 17:06 78 27 50 6/17/17 17:00 79 27 110/37 100 Mechanical Ventilator 50 6/17/17 16:45 80 24 101/39 100 Mechanical Ventilator 50 6/17/17 16:30 81 22 104/28 98 Mechanical Ventilator 50 6/17/17 16:15 99.2 78 23 97/38 100 Mechanical Ventilator 50 6/17/17 16:11 92/42 6/17/17 16:00 80 6/17/17 16:00 78 17 92/42 100 Mechanical Ventilator 50 6/17/17 16:00 50 6/17/17 15:30 75 25 116/32 100 Mechanical Ventilator 50 6/17/17 15:25 74 25 50 6/17/17 15:00 94 21 102/36 100 Mechanical Ventilator 50 6/17/17 14:45 74 22 94/35 100 Mechanical Ventilator 50 6/17/17 14:30 74 23 88/35 100 Mechanical Ventilator 50 6/17/17 14:15 74 23 95/37 100 Mechanical Ventilator 50 6/17/17 14:00 73 23 103/34 100 Mechanical Ventilator 50 04/03/17 13:45 74 23 119/31 100 Mechanical Ventilator 50 04/03/17 13:30 76 26 119/36 100 Mechanical Ventilator 50 04/03/17 13:15 75 21 96/32 100 Mechanical Ventilator 50 04/03/17 13:00 74 21 96/43 100 Mechanical Ventilator 50 04/03/17 12:45 75 24 107/33 100 Mechanical Ventilator 50 04/03/17 12:42 66 23 50 04/03/17 12:30 74 22 103/33 100 Mechanical Ventilator 50 04/03/17 12:15 74 22 101/37 100 Mechanical Ventilator 50 04/03/17 12:00 99.1 75 24 101/37 100 Mechanical Ventilator 50 04/03/17 12:00 72 04/03/17 12:00 50 04/03/17 11:30 74 25 103/28 100 Mechanical Ventilator 50 04/03/17 11:15 68 21 95/30 100 Mechanical Ventilator 50 04/03/17 11:00 98 11 102/41 100 Mechanical Ventilator 50 04/03/17 10:48 77 16 50 04/03/17 10:30 76 26 105/36 100 Mechanical Ventilator 50 04/03/17 10:15 79 25 105/37 100 Mechanical Ventilator 50 04/03/17 10:00 71 18 113/26 100 Mechanical Ventilator 50 04/03/17 09:45 72 16 120/21 100 Mechanical Ventilator 50 04/03/17 09:30 78 20 113/26 100 Mechanical Ventilator 50 04/03/17 09:00 75 19 105/30 100 Mechanical Ventilator 50 04/03/17 08:45 80 25 50 04/03/17 08:30 74 21 150/120 100 Mechanical Ventilator 50 04/03/17 08:00 71 04/03/17 08:00 99.5 71 19 111/41 100 Mechanical Ventilator 50 04/03/17 08:00 50 Height (Feet): 5 Height (Inches): 3.00 Weight (Pounds): 235 HEENT: other - orally intubated Respiratory/Chest: rhonchi - bilaterally, other - on ventilator Cardiovascular: normal rate Abdomen: distended Extremities: other - generalized edema, R femoral line Neurologic/Psychiatric: disoriented Microbiology Date/Time Source Procedure Growth Status 04/01/17 16:00 Sputum Gram Stain - Final Complete 04/01/17 16:00 Sputum Culture - Final Pseudomonas Aeruginosa Diphtheroids Complete 04/01/17 16:00 Stool Clostridium difficile Toxin Assay - Final Complete Laboratory Tests Test 04/03/17 23:05 04/04/17 04:00 Vancomycin Level Trough 23.2 ug/mL (5.0-12.0) H White Blood Count 3.1 K/UL (4.8-10.8) L Red Blood Count 2.28 M/UL (4.20-5.40) L Hemoglobin 8.2 G/DL (12.0-16.0) L Hematocrit 24.8 % (37.0-47.0) L Mean Corpuscular Volume 109 FL (80-99) H Mean Corpuscular Hemoglobin 36.1 PG (27.0-31.0) H Mean Corpuscular Hemoglobin Concent 33.1 G/DL (32.0-36.0) Red Cell Distribution Width 13.7 % (11.6-14.8) Platelet Count 59 K/UL (150-450) L Mean Platelet Volume 14.9 FL (6.5-10.1) H Neutrophils (%) (Auto) % (45.0-75.0) Lymphocytes (%) (Auto) % (20.0-45.0) Monocytes (%) (Auto) % (1.0-10.0) Eosinophils (%) (Auto) % (0.0-3.0) Basophils (%) (Auto) % (0.0-2.0) Neutrophils % (Manual) Pending Lymphocytes % (Manual) Pending Platelet Estimate Pending Platelet Morphology Pending Activated Partial Thromboplast Time 98 SEC (23-33) H Sodium Level 145 mEQ/L (135-145) Potassium Level 4.3 mEQ/L (3.4-4.9) # Chloride Level 110 mEQ/L (98-107) H Carbon Dioxide Level 21 mEQ/L (20-30) Anion Gap 14 (5-15) Blood Urea Nitrogen 29 mg/dL (7-23) H Creatinine 0.5 mg/dL (0.5-0.9) Estimat Glomerular Filtration Rate mL/min (>60) Glucose Level 92 mg/dL (74-106) Calcium Level 8.6 mg/dL (8.6-10.2) Total Bilirubin 0.2 mg/dL (0.0-1.2) Aspartate Amino Transf (AST/SGOT) 15 U/L (5-40) Alanine Aminotransferase (ALT/SGPT) 7 U/L (3-33) Alkaline Phosphatase 91 U/L (35-104) Total Protein 4.9 g/dL (6.6-8.7) L Albumin 1.7 g/dL (3.5-5.2) L Globulin 3.2 g/dL Albumin/Globulin Ratio 0.5 (1.0-2.7) L Current Medications Medications (Trade) Dose Ordered Sig/Reji Route PRN Reason Start Time Stop Time Status Last Admin Dose Admin Acetaminophen 650 mg 650 mg Q4H PRN ORAL Mild Pain/Temp > 100.5 04/03/17 14:46 04/30/17 16:14 Albuterol Sulfate (Proventil) 2.5 mg Q4H PRN HHN Shortness of Breath 03/31/17 16:15 04/05/17 16:14 Amiodarone HCl 900 mg/Dextrose 500 ml @ 0 mls/hr Q24H IV 04/03/17 23:00 05/03/17 22:59 04/03/17 23:17 Ascorbic Acid 500 mg 500 mg TWICE A DAY GT 04/03/17 09:00 05/03/17 08:59 04/03/17 17:46 Chlorhexidine Gluconate (Sheela-Hex 2%) 1 applic DAILY TOPIC 04/01/17 09:00 05/01/17 08:59 04/03/17 02:18 Heparin Sodium/ Dextrose (Heparin) 500 ml @ 18.96 mls/ hr adjust per protocol IV 04/04/17 05:40 05/01/17 15:14 04/04/17 05:49 Lacosamide (Vimpat) 50 mg Q12HR ORAL 03/31/17 21:00 04/30/17 20:59 04/03/17 21:10 Lansoprazole 30 mg 30 mg DAILY GT 04/02/17 10:30 05/02/17 10:29 04/03/17 08:45 Levothyroxine Sodium 50 mcg 50 mcg ACBREAKFAST GT 04/01/17 06:30 05/01/17 06:29 04/04/17 06:42 Lidocaine HCl (Xylocaine 1% 30ml) 30 ml ONCE ONCE INJ 04/05/17 06:00 04/05/17 06:01 Meropenem/Sodium Chloride (Merrem/Sodium Chloride) 110 ml @ 220 mls/hr Q12HR IVPB 04/02/17 12:30 04/07/17 12:29 04/03/17 20:56 Norepinephrine Bitartrate/ Dextrose (Levophed/D5W) 250 ml @ 0 mls/hr Q24H IV 03/31/17 18:30 04/30/17 18:29 04/03/17 16:11 Sodium (0.45%NS w/KCl 20mEq 1000ml) 1,000 ml @ 50 mls/hr Q20H IV 04/03/17 08:45 05/03/17 08:44 04/04/17 03:30 Sodium Bicarbonate (Sodium Bicarbonate 4%) 1 ml ONCE ONCE INJ 04/05/17 06:00 04/05/17 06:01 Valproic Acid (Depakene) 1,000 mg Q12HR GT 03/31/17 22:00 04/30/17 21:59 04/03/17 21:10 Vancomycin HCl (Vanco rx to dose) 1 ea DAILYPRN PRN MISC Per rx protocol 03/31/17 16:15 04/30/17 16:14 Vancomycin HCl 1.5 gm/Dextrose 325 ml @ 162.5 mls/ hr Q24H IVPB 04/04/17 09:00 04/09/17 08:59 PARDEEP IRVING Apr 04, 2017 08:01
--- NOTE | 2017-04-04 08:30 | General Progress Note ---
Assessment/Plan Problem List: (1) Seizure disorder ICD Codes: G40.909 - Epilepsy, unspecified, not intractable, without status epilepticus SNOMED: 394732684 (2) ARF (acute renal failure) ICD Codes: N17.9 - Acute kidney failure, unspecified SNOMED: 08950712 Qualifiers: Qualified Codes: N17.9 - Acute kidney failure, unspecified (3) UTI (urinary tract infection) ICD Codes: N39.0 - Urinary tract infection, site not specified SNOMED: 03840885, 59789726 Qualifiers: Qualified Codes: N39.0 - Urinary tract infection, site not specified (4) Pneumonia ICD Codes: J18.9 - Pneumonia, unspecified organism SNOMED: 958642394, 06661304 Qualifiers: Qualified Codes: J18.1 - Lobar pneumonia, unspecified organism (5) Septic shock ICD Codes: A41.9 - Sepsis, unspecified organism; R65.21 - Severe sepsis with septic shock SNOMED: 73129935 (6) Hypoxia ICD Codes: R09.02 - Hypoxemia; R65.21 - Severe sepsis with septic shock SNOMED: 505535717, 21518863 (7) Altered level of consciousness ICD Codes: R40.4 - Transient alteration of awareness SNOMED: 5740734 Status: stable, progressing Assessment/Plan ivf iv abx vent support resp rx monitor abg wean per pulm follow up cultures and pending labs heparin drip- monitor h/h and plts. may have to dc if plts continue to drop may need ivc filter feeds cont sz rx picc critical and guarded Subjective ROS Limited/Unobtainable: No Constitutional: Reports: malaise, weakness HEENT: Reports: no symptoms Cardiovascular: Reports: no symptoms Respiratory: Reports: shortness of breath Gastrointestinal/Abdominal: Reports: difficulty swallowing Genitourinary: Reports: no symptoms Neurologic/Psychiatric: Reports: pre-existing deficit Endocrine: Reports: no symptoms Hematologic/Lymphatic: Reports: anemia Allergies: Coded Allergies: CEFTRIAXONE (Verified Allergy, Unknown, 03/31/17) PENICILLINS (Verified Allergy, Unknown, 03/31/17) SULFA (SULFONAMIDE ANTIBIOTICS) (Verified Allergy, Unknown, 03/31/17) TAZOBACTAM (Verified Allergy, Unknown, 03/31/17) All Systems: reviewed and negative except above Subjective remains on the vent. more alert. off levophed. tolerating feeds. Objective Last 24 Hour Vital Signs Date Time Temp Pulse Resp B/P Pulse Ox O2 Delivery O2 Flow Rate FiO2 6/18/17 07:05 80 23 50 6/18/17 06:30 74 20 90/38 100 Mechanical Ventilator 50 6/18/17 06:00 74 20 97/34 100 Mechanical Ventilator 50 6/18/17 05:30 73 17 90/38 100 Mechanical Ventilator 50 6/18/17 05:10 73 17 50 6/18/17 05:00 78 25 98/41 100 Mechanical Ventilator 50 6/18/17 04:30 71 16 95/38 100 Mechanical Ventilator 50 6/18/17 04:00 50 6/18/17 04:00 98.9 95 22 132/36 100 Mechanical Ventilator 50 6/18/17 03:30 77 18 100/41 100 Mechanical Ventilator 50 6/18/17 03:05 72 15 50 6/18/17 03:00 72 20 88/39 100 Mechanical Ventilator 50 6/18/17 02:30 70 19 93/40 100 Mechanical Ventilator 50 6/18/17 02:00 77 15 93/40 100 Mechanical Ventilator 50 6/18/17 01:30 78 16 90/43 100 Mechanical Ventilator 50 6/18/17 01:06 73 17 50 6/18/17 01:00 73 17 120/40 100 Mechanical Ventilator 50 6/18/17 00:30 71 18 104/37 100 Mechanical Ventilator 50 6/18/17 00:00 98.7 74 22 94/37 100 Mechanical Ventilator 50 6/18/17 00:00 50 6/17/17 23:30 74 18 90/35 100 Mechanical Ventilator 50 6/17/17 23:18 83 20 50 6/17/17 23:00 78 20 108/39 100 Mechanical Ventilator 50 6/17/17 22:30 83 25 97/52 100 Mechanical Ventilator 50 6/17/17 22:00 85 26 97/32 100 Mechanical Ventilator 50 6/17/17 21:30 83 25 107/36 99 Mechanical Ventilator 50 6/17/17 21:11 87 25 50 6/17/17 21:00 87 28 93/37 100 Mechanical Ventilator 50 6/17/17 20:30 83 24 96/39 99 Mechanical Ventilator 50 6/17/17 20:00 98.5 83 23 105/36 100 Mechanical Ventilator 50 6/17/17 20:00 50 6/17/17 19:30 87 24 101/41 100 Mechanical Ventilator 50 6/17/17 19:05 82 24 50 6/17/17 19:00 83 28 98/39 100 Mechanical Ventilator 50 6/17/17 18:30 85 24 101/42 100 Mechanical Ventilator 50 6/17/17 18:15 85 24 112/41 99 Mechanical Ventilator 50 6/17/17 18:00 83 23 109/37 99 Mechanical Ventilator 50 6/17/17 17:45 81 25 121/34 99 Mechanical Ventilator 50 6/17/17 17:30 81 25 106/39 100 Mechanical Ventilator 50 6/17/17 17:15 82 25 101/37 100 Mechanical Ventilator 50 6/17/17 17:06 78 27 50 6/17/17 17:00 79 27 110/37 100 Mechanical Ventilator 50 6/17/17 16:45 80 24 101/39 100 Mechanical Ventilator 50 6/17/17 16:30 81 22 104/28 98 Mechanical Ventilator 50 6/17/17 16:15 99.2 78 23 97/38 100 Mechanical Ventilator 50 6/17/17 16:11 92/42 6/17/17 16:00 80 6/17/17 16:00 78 17 92/42 100 Mechanical Ventilator 50 6/17/17 16:00 50 6/17/17 15:30 75 25 116/32 100 Mechanical Ventilator 50 6/17/17 15:25 74 25 50 6/17/17 15:00 94 21 102/36 100 Mechanical Ventilator 50 6/17/17 14:45 74 22 94/35 100 Mechanical Ventilator 50 6/17/17 14:30 74 23 88/35 100 Mechanical Ventilator 50 6/17/17 14:15 74 23 95/37 100 Mechanical Ventilator 50 6/17/17 14:00 73 23 103/34 100 Mechanical Ventilator 50 6/17/17 13:45 74 23 119/31 100 Mechanical Ventilator 50 6/17/17 13:30 76 26 119/36 100 Mechanical Ventilator 50 6/17/17 13:15 75 21 96/32 100 Mechanical Ventilator 50 6/17/17 13:00 74 21 96/43 100 Mechanical Ventilator 50 6/17/17 12:45 75 24 107/33 100 Mechanical Ventilator 50 6/17/17 12:42 66 23 50 04/03/17 12:30 74 22 103/33 100 Mechanical Ventilator 50 04/03/17 12:15 74 22 101/37 100 Mechanical Ventilator 50 04/03/17 12:00 99.1 75 24 101/37 100 Mechanical Ventilator 50 04/03/17 12:00 72 04/03/17 12:00 50 04/03/17 11:30 74 25 103/28 100 Mechanical Ventilator 50 04/03/17 11:15 68 21 95/30 100 Mechanical Ventilator 50 04/03/17 11:00 98 11 102/41 100 Mechanical Ventilator 50 04/03/17 10:48 77 16 50 04/03/17 10:30 76 26 105/36 100 Mechanical Ventilator 50 04/03/17 10:15 79 25 105/37 100 Mechanical Ventilator 50 04/03/17 10:00 71 18 113/26 100 Mechanical Ventilator 50 04/03/17 09:45 72 16 120/21 100 Mechanical Ventilator 50 04/03/17 09:30 78 20 113/26 100 Mechanical Ventilator 50 04/03/17 09:00 75 19 105/30 100 Mechanical Ventilator 50 04/03/17 08:45 80 25 50 04/03/17 08:30 74 21 150/120 100 Mechanical Ventilator 50 Intake and Output 04/03/17 04/04/17 19:00 07:00 Intake Total 2327.17 ml 1529.30 ml Output Total 1385 ml 710 ml Balance 942.17 ml 819.30 ml Intake Free Water 200 ml 110 ml IV Total 1737.17 ml 1089.30 ml Tube Feeding 360 ml 330 ml Other 30 ml Output Urine Total 1385 ml 710 ml # Bowel Movements 1 3 Laboratory Tests 04/03/17 23:05: Vancomycin Level Trough 23.2H 04/04/17 04:00: White Blood Count 3.1L, Red Blood Count 2.28L, Hemoglobin 8.2L, Hematocrit 24.8L , Mean Corpuscular Volume 109H, Mean Corpuscular Hemoglobin 36.1H, Mean Corpuscular Hemoglobin Concent 33.1, Red Cell Distribution Width 13.7, Platelet Count 59L, Mean Platelet Volume 14.9H, Neutrophils (%) (Auto) , Lymphocytes (%) (Auto) , Monocytes (%) (Auto) , Eosinophils (%) (Auto) , Basophils (%) (Auto) , Neutrophils % (Manual) [Pending], Lymphocytes % (Manual) [Pending], Platelet Estimate [Pending], Platelet Morphology [Pending], Activated Partial Thromboplast Time 98H, Sodium Level 145, Potassium Level 4.3#, Chloride Level 110H, Carbon Dioxide Level 21, Anion Gap 14, Blood Urea Nitrogen 29H, Creatinine 0.5, Estimat Glomerular Filtration Rate , Glucose Level 92, Calcium Level 8.6, Total Bilirubin 0.2, Aspartate Amino Transf (AST/SGOT) 15, Alanine Aminotransferase (ALT/SGPT) 7, Alkaline Phosphatase 91, Total Protein 4.9L, Albumin 1.7L, Globulin 3.2, Albumin/Globulin Ratio 0.5L Height (Feet): 5 Height (Inches): 3.00 Weight (Pounds): 235 Objective General Appearance: WD/WN, confused Neck: supple Cardiovascular: normal rate, regular rhythm Respiratory/Chest: chest wall non-tender, no respiratory distress, no accessory muscle use, rhonchi - bilaterally Abdomen: normal bowel sounds, non tender, soft, no organomegaly Edema: no edema noted Arm (L), no edema noted Arm (R), no edema noted Leg (L), no edema noted Leg (R), no edema noted Pedal (L), no edema noted Pedal (R), no edema noted Generalized Neurologic: disoriented BREANNE SORIA Apr 04, 2017 08:30
[2017-04-04] MEDS: Ascorbic Acid 500mg tab GT SCH ×2 (09:00→17:45)
[2017-04-04] MEDS: Dyna-Hex 2% Top Sol 8oz TOPIC SCH (09:00)
[2017-04-04] MEDS ORDERED: Vancomycin 1.5 GM in D5W 325 ML IVPB SCH (09:00)
[2017-04-04] MEDS: Amiodarone 200mg tab ORAL SCH ×2 (09:00→21:00)
[2017-04-04] MEDS: Lacosamide 50mg tablet ORAL SCH ×2 (09:00→21:22)
[2017-04-04] MEDS: Valproic Acid 250mg/5ml Liquid GT SCH ×2 (09:00→21:22)
[2017-04-04] MEDS: Aztreonam Inj 1 GM in D5W 55 ML IVPB SCH ×3 (09:30→22:06)
[2017-04-04] MEDS: Amikacin for Inhalation 2ML INH SCH (10:00)
[2017-04-04 10:32] LABS: ANISOCYTOSIS 1+; BAND NEUTROPHILS % (MANUAL) 0 % (0-8); BASOPHILS % (MANUAL) 0 % (0-2); EOSINOPHILS % (MANUAL) 3 % (0-3); HYPOCHROMASIA 1+; LYMPHOCYTES % (MANUAL) 21 % (20-45); NEUTROPHILS % (MANUAL) 71 % (45-75); PLATELET ESTIMATE DECREASED; PLATELET MORPHOLOGY NORMAL; TOTAL CELLS COUNTED 100
[2017-04-04] MEDS ORDERED: Heparin 25,000 units/D5W 500ml (ACS/MI) IV SCH (12:30)
[2017-04-04] MEDS ORDERED: Heparin 5000 units/ml inj IV ONE (12:30)
[2017-04-04] MEDS: Heparin 25,000 units/D5W 500ml (ACS/MI) IV SCH ×2 (12:36→22:11)
--- NOTE | 2017-04-04 18:30 | Cardiac Electrophysiology PN ---
Assessment/Plan Problem List: (1) ARF (acute renal failure) (2) UTI (urinary tract infection) (3) Pneumonia (4) Septic shock (5) Wide-complex tachycardia (6) Paroxysmal atrial fibrillation with rapid ventricular response Status: stable, unchanged Status Narrative Pt w/ episode of wide, followed by narrow complex tachycardia - appears to be AF w/ aberrency. Occurred in setting of sepsis, respiratory failure Rhythm reverted back to NSR w amiodarone ECHO w ? dextrocardia though EKG on adm appears w/ normal precordial R wave progression Assessment/Plan Stop iv amiodarone and change or oral ( GT). continue iv heparin for cva prevention w/ AF broad spectrum IV antibiotics for pneumonia, resp failure. Possible weaning from vent tomorrow per Dr. Baker Review ECHO - ? dextrocardia ? RVH Subjective ROS Limited/Unobtainable: Yes Subjective Intubated, opens eyes to voice but does not follow commands Objective Last 24 Hour Vital Signs Date Time Temp Pulse Resp B/P Pulse Ox O2 Delivery O2 Flow Rate FiO2 04/04/17 18:00 81 2 115/38 100 Mechanical Ventilator 50 04/04/17 17:30 82 24 118/48 100 Mechanical Ventilator 50 17 17:17 71 19 50 04/04/17 17:00 120/45 04/04/17 17:00 78 20 120/45 100 Mechanical Ventilator 50 04/04/17 16:30 81 20 122/45 100 Mechanical Ventilator 50 04/04/17 16:00 98.2 78 23 126/44 100 Mechanical Ventilator 50 04/04/17 16:00 50 04/04/17 15:30 83 21 122/46 100 Mechanical Ventilator 50 04/04/17 15:16 83 26 50 18/17 15:00 82 20 120/45 100 Mechanical Ventilator 50 04/04/17 14:30 84 18 105/48 100 Mechanical Ventilator 50 04/04/17 14:00 84 24 118/54 99 Mechanical Ventilator 50 04/04/17 13:30 80 24 107/50 100 Mechanical Ventilator 50 17 13:18 78 19 50 61817 13:00 78 20 121/41 100 Mechanical Ventilator 50 04/04/17 12:30 78 26 118/47 100 Mechanical Ventilator 50 04/04/17 12:00 98.7 75 25 119/48 100 Mechanical Ventilator 50 6/18/17 12:00 50 6/18/17 11:30 76 26 114/46 98 Mechanical Ventilator 50 6/18/17 11:00 78 26 118/50 100 Mechanical Ventilator 50 6/18/17 10:58 78 18 50 6/18/17 10:45 75 27 112/47 100 Mechanical Ventilator 50 6/18/17 10:30 78 27 118/47 100 Mechanical Ventilator 50 6/18/17 10:00 76 22 123/41 100 Mechanical Ventilator 50 6/18/17 09:30 75 20 87/65 100 Mechanical Ventilator 50 6/18/17 09:00 74 22 107/63 100 Mechanical Ventilator 50 6/18/17 08:34 45 17 50 6/18/17 08:30 73 21 86/71 100 Mechanical Ventilator 50 6/18/17 08:00 50 6/18/17 08:00 74 21 99/41 100 Mechanical Ventilator 50 6/18/17 08:00 65 6/18/17 08:00 98.5 75 19 86/71 100 Mechanical Ventilator 14.0 50 95 6/18/17 07:30 73 20 104/40 100 Mechanical Ventilator 50 6/18/17 07:05 80 23 50 6/18/17 07:00 74 21 105/39 100 Mechanical Ventilator 50 6/18/17 06:30 74 20 90/38 100 Mechanical Ventilator 50 6/18/17 06:00 74 20 97/34 100 Mechanical Ventilator 50 6/18/17 05:30 73 17 90/38 100 Mechanical Ventilator 50 6/18/17 05:10 73 17 50 6/18/17 05:00 78 25 98/41 100 Mechanical Ventilator 50 6/18/17 04:30 71 16 95/38 100 Mechanical Ventilator 50 6/18/17 04:00 50 6/18/17 04:00 98.9 95 22 132/36 100 Mechanical Ventilator 50 6/18/17 03:30 77 18 100/41 100 Mechanical Ventilator 50 6/18/17 03:05 72 15 50 6/18/17 03:00 72 20 88/39 100 Mechanical Ventilator 50 6/18/17 02:30 70 19 93/40 100 Mechanical Ventilator 50 6/18/17 02:00 77 15 93/40 100 Mechanical Ventilator 50 6/18/17 01:30 78 16 90/43 100 Mechanical Ventilator 50 6/18/17 01:06 73 17 50 04/04/17 01:00 73 17 120/40 100 Mechanical Ventilator 50 04/04/17 00:30 71 18 104/37 100 Mechanical Ventilator 50 04/04/17 00:00 98.7 74 22 94/37 100 Mechanical Ventilator 50 04/04/17 00:00 50 04/03/17 23:30 74 18 90/35 100 Mechanical Ventilator 50 04/03/17 23:18 83 20 50 04/03/17 23:00 78 20 108/39 100 Mechanical Ventilator 50 04/03/17 22:30 83 25 97/52 100 Mechanical Ventilator 50 04/03/17 22:00 85 26 97/32 100 Mechanical Ventilator 50 04/03/17 21:30 83 25 107/36 99 Mechanical Ventilator 50 04/03/17 21:11 87 25 50 04/03/17 21:00 87 28 93/37 100 Mechanical Ventilator 50 04/03/17 20:30 83 24 96/39 99 Mechanical Ventilator 50 04/03/17 20:00 98.5 83 23 105/36 100 Mechanical Ventilator 50 04/03/17 20:00 50 04/03/17 19:30 87 24 101/41 100 Mechanical Ventilator 50 04/03/17 19:05 82 24 50 04/03/17 19:00 83 28 98/39 100 Mechanical Ventilator 50 04/03/17 18:30 85 24 101/42 100 Mechanical Ventilator 50 General Appearance: WD/WN, on vent EENT: other - et tube Neck: no JVD Rhythm: NSR Cardiovascular: normal rate, regular rhythm, no gallop/murmur Respiratory/Chest: rhonchi - bilaterally Abdomen: non tender, soft, other - g tube in place Extremities: other - 1+ distal ue, le edema, contractures of upper ext bilat Intake and Output 04/03/17 04/04/17 19:00 07:00 Intake Total 2327.17 ml 1630.62 ml Output Total 1385 ml 750 ml Balance 942.17 ml 880.62 ml Intake Free Water 200 ml 110 ml IV Total 1737.17 ml 1160.62 ml Tube Feeding 360 ml 360 ml Other 30 ml Output Urine Total 1385 ml 750 ml # Bowel Movements 1 3 Laboratory Tests Test 04/03/17 23:05 04/04/17 04:00 6/18/17 11:25 Vancomycin Level Trough 23.2 ug/mL (5.0-12.0) H White Blood Count 3.1 K/UL (4.8-10.8) L Red Blood Count 2.28 M/UL (4.20-5.40) L Hemoglobin 8.2 G/DL (12.0-16.0) L Hematocrit 24.8 % (37.0-47.0) L Mean Corpuscular Volume 109 FL (80-99) H Mean Corpuscular Hemoglobin 36.1 PG (27.0-31.0) H Mean Corpuscular Hemoglobin Concent 33.1 G/DL (32.0-36.0) Red Cell Distribution Width 13.7 % (11.6-14.8) Platelet Count 59 K/UL (150-450) L Mean Platelet Volume 14.9 FL (6.5-10.1) H Neutrophils (%) (Auto) % (45.0-75.0) Lymphocytes (%) (Auto) % (20.0-45.0) Monocytes (%) (Auto) % (1.0-10.0) Eosinophils (%) (Auto) % (0.0-3.0) Basophils (%) (Auto) % (0.0-2.0) Differential Total Cells Counted 100 Neutrophils % (Manual) 71 % (45-75) Lymphocytes % (Manual) 21 % (20-45) Monocytes % (Manual) 5 % (1-10) Eosinophils % (Manual) 3 % (0-3) Basophils % (Manual) 0 % (0-2) Band Neutrophils 0 % (0-8) Platelet Estimate Decreased L Platelet Morphology Normal Hypochromasia 1+ Anisocytosis 1+ Activated Partial Thromboplast Time 98 SEC (23-33) H 48 SEC (23-33) H Sodium Level 145 mEQ/L (135-145) Potassium Level 4.3 mEQ/L (3.4-4.9) # Chloride Level 110 mEQ/L (98-107) H Carbon Dioxide Level 21 mEQ/L (20-30) Anion Gap 14 (5-15) Blood Urea Nitrogen 29 mg/dL (7-23) H Creatinine 0.5 mg/dL (0.5-0.9) Estimat Glomerular Filtration Rate mL/min (>60) Glucose Level 92 mg/dL (74-106) Calcium Level 8.6 mg/dL (8.6-10.2) Total Bilirubin 0.2 mg/dL (0.0-1.2) Aspartate Amino Transf (AST/SGOT) 15 U/L (5-40) Alanine Aminotransferase (ALT/SGPT) 7 U/L (3-33) Alkaline Phosphatase 91 U/L (35-104) Total Protein 4.9 g/dL (6.6-8.7) L Albumin 1.7 g/dL (3.5-5.2) L Globulin 3.2 g/dL Albumin/Globulin Ratio 0.5 (1.0-2.7) L SIXTO LOOMIS Apr 04, 2017 18:30
--- NOTE | 2017-04-04 18:44 | Cardiology Report ---
APPROVED REPORT EKG Measurement Heart [id number] A. Fib with rapid ventricular response. Nonspecific ST and T wave abnormality Abnormal ECG
[2017-04-05] VITALS (21 sets, daily range): BP systolic 93–140; BP diastolic 38–74
[2017-04-05] MEDS: 1/2NS w/KCl 20mEq 1000ml 1,000 ML IV SCH (00:45)
[2017-04-05] MEDS: Amikacin for Inhalation 2ML INH SCH ×3 (03:42→23:22)
[2017-04-05 05:07] LABS: MEAN CORPUSCULAR HEMOGLOBIN 36.1 PG (27.0-31.0); MEAN CORPUSCULAR HGB CONC 32.7 G/DL (32.0-36.0); MEAN CORPUSCULAR VOLUME 110 FL (80-99); MEAN PLATELET VOLUME 14.2 FL (6.5-10.1); PLATELET COUNT 66 K/UL (150-450); RED BLOOD COUNT 2.35 M/UL (4.20-5.40); WHITE BLOOD COUNT 4.1 K/UL (4.8-10.8)
[2017-04-05 05:21] LABS: ALANINE AMINOTRANSFERASE 9 U/L (3-33); ALBUMIN/GLOBULIN RATIO 0.5 (1.0-2.7); ANION GAP 10 (5-15); ASPARTATE AMINO TRANSFERASE 23 U/L (5-40); CALCIUM 8.6 mg/dL (8.6-10.2); CARBON DIOXIDE 21 mEQ/L (20-30); CHLORIDE 116 mEQ/L (98-107); CREATININE 0.4 mg/dL (0.5-0.9); HEMOLYSIS 6; POTASSIUM 4.3 mEQ/L (3.4-4.9); SODIUM 147 mEQ/L (135-145); TOTAL PROTEIN 5.2 g/dL (6.6-8.7)
[2017-04-05] MEDS ORDERED: Heparin 25,000 units/D5W 500ml (ACS/MI) IV SCH ×3 (05:28→21:24)
[2017-04-05] MEDS ORDERED: Heparin 5000 units/ml inj IV ONE ×2 (05:45→21:30)
[2017-04-05] MEDS ORDERED: Lidocaine 1% Plain 30 ml INJ ONE (06:00)
[2017-04-05] MEDS ORDERED: Sodium Bicarbonate 4% 2.4meq/5ml vial INJ ONE (06:00)
[2017-04-05] MEDS: Aztreonam Inj 1 GM in D5W 55 ML IVPB SCH ×3 (06:06→22:02)
--- NOTE | 2017-04-05 07:53 | General Progress Note ---
Assessment/Plan Problem List: (1) Seizure disorder ICD Codes: G40.909 - Epilepsy, unspecified, not intractable, without status epilepticus SNOMED: 733568236 (2) ARF (acute renal failure) ICD Codes: N17.9 - Acute kidney failure, unspecified SNOMED: 65915685 Qualifiers: Qualified Codes: N17.9 - Acute kidney failure, unspecified (3) UTI (urinary tract infection) ICD Codes: N39.0 - Urinary tract infection, site not specified SNOMED: 70270110, 85241935 Qualifiers: Qualified Codes: N39.0 - Urinary tract infection, site not specified (4) Pneumonia ICD Codes: J18.9 - Pneumonia, unspecified organism SNOMED: 575829374, 37092531 Qualifiers: Qualified Codes: J18.1 - Lobar pneumonia, unspecified organism (5) Septic shock ICD Codes: A41.9 - Sepsis, unspecified organism; R65.21 - Severe sepsis with septic shock SNOMED: 99327152 (6) Hypoxia ICD Codes: R09.02 - Hypoxemia; R65.21 - Severe sepsis with septic shock SNOMED: 695363997, 71137859 (7) Altered level of consciousness ICD Codes: R40.4 - Transient alteration of awareness SNOMED: 0656557 Status: stable Assessment/Plan amiodarone dcd due to long pauses. defer to cards restarting ivf iv abx vent support resp rx monitor abg wean per pulm follow up cultures and pending labs heparin drip- monitor h/h and plts. may have to dc if plts continue to drop may need ivc filter feeds cont sz rx picc critical and guarded Subjective ROS Limited/Unobtainable: No Constitutional: Reports: malaise, weakness HEENT: Reports: no symptoms Cardiovascular: Reports: no symptoms Respiratory: Reports: cough, shortness of breath, sputum Gastrointestinal/Abdominal: Reports: no symptoms Genitourinary: Reports: no symptoms Neurologic/Psychiatric: Reports: pre-existing deficit Endocrine: Reports: no symptoms Hematologic/Lymphatic: Reports: anemia Allergies: Coded Allergies: CEFTRIAXONE (Verified Allergy, Unknown, 03/31/17) PENICILLINS (Verified Allergy, Unknown, 03/31/17) SULFA (SULFONAMIDE ANTIBIOTICS) (Verified Allergy, Unknown, 03/31/17) TAZOBACTAM (Verified Allergy, Unknown, 03/31/17) All Systems: reviewed and negative except above Subjective remains on the vent. more alert. off levophed. tolerating feeds. worsening edema. having long pauses. Objective Last 24 Hour Vital Signs Date Time Temp Pulse Resp B/P Pulse Ox O2 Delivery O2 Flow Rate FiO2 04/05/17 06:56 88 18 50 04/05/17 05:21 79 17 50 04/05/17 04:00 50 04/05/17 04:00 98.0 80 20 109/46 100 Mechanical Ventilator 50 04/05/17 03:05 79 14 50 04/05/17 03:00 80 20 105/52 100 Mechanical Ventilator 50 04/05/17 02:00 80 20 109/46 100 Mechanical Ventilator 50 04/05/17 01:00 80 19 140/48 100 Mechanical Ventilator 50 04/05/17 00:53 78 18 50 04/05/17 00:00 50 04/05/17 00:00 97.8 81 19 131/43 100 Mechanical Ventilator 50 04/04/17 23:05 78 16 50 04/04/17 23:00 82 19 120/50 100 Mechanical Ventilator 50 04/04/17 22:00 78 18 117/43 100 Mechanical Ventilator 50 04/04/17 21:17 79 16 50 04/04/17 21:00 81 19 114/44 100 Mechanical Ventilator 50 04/04/17 20:00 50 04/04/17 20:00 98.8 81 18 110/41 100 Mechanical Ventilator 50 04/04/17 19:21 81 23 50 04/04/17 19:00 80 21 111/37 100 Mechanical Ventilator 50 04/04/17 18:30 81 20 114/38 100 Mechanical Ventilator 50 04/04/17 18:30 80 20 115/38 100 Mechanical Ventilator 50 17 18:00 81 22 115/38 100 Mechanical Ventilator 50 04/04/17 17:30 82 24 118/48 100 Mechanical Ventilator 50 17 17:17 71 19 50 17 17:00 120/45 04/04/17 17:00 78 20 120/45 100 Mechanical Ventilator 50 17 16:30 81 20 122/45 100 Mechanical Ventilator 50 04/04/17 16:00 98.2 78 23 126/44 100 Mechanical Ventilator 50 6/18/17 16:00 50 6/18/17 15:30 83 21 122/46 100 Mechanical Ventilator 50 618/17 15:16 83 26 50 6/18/17 15:00 82 20 120/45 100 Mechanical Ventilator 50 618/17 14:30 84 18 105/48 100 Mechanical Ventilator 50 618/17 14:00 84 24 118/54 99 Mechanical Ventilator 50 618/17 13:30 80 24 107/50 100 Mechanical Ventilator 50 18/17 13:18 78 19 50 618/17 13:00 78 20 121/41 100 Mechanical Ventilator 50 618/17 12:30 78 26 118/47 100 Mechanical Ventilator 50 618/17 12:00 98.7 75 25 119/48 100 Mechanical Ventilator 50 1817 12:00 50 17 11:30 76 26 114/46 98 Mechanical Ventilator 50 18/17 11:00 78 26 118/50 100 Mechanical Ventilator 50 18/17 10:58 78 18 50 18/17 10:45 75 27 112/47 100 Mechanical Ventilator 50 04/04/17 10:30 78 27 118/47 100 Mechanical Ventilator 50 18/17 10:00 76 22 123/41 100 Mechanical Ventilator 50 18/17 09:30 75 20 87/65 100 Mechanical Ventilator 50 1817 09:00 74 22 107/63 100 Mechanical Ventilator 50 18/17 08:34 45 17 50 18/17 08:30 73 21 86/71 100 Mechanical Ventilator 50 1817 08:00 50 1817 08:00 74 21 99/41 100 Mechanical Ventilator 50 17 08:00 65 18/17 08:00 98.5 75 19 86/71 100 Mechanical Ventilator 14.0 50 95 Intake and Output 04/04/17 04/05/17 19:00 07:00 Intake Total 1032.896 ml 1364.844 ml Output Total 565 ml 1311 ml Balance 467.896 ml 53.844 ml Intake Free Water 60 ml IV Total 672.896 ml 774.844 ml Tube Feeding 360 ml 530 ml Output Urine Total 565 ml 1310 ml Stool Total 1 ml # Bowel Movements 3 4 Laboratory Tests 04/04/17 11:25: Activated Partial Thromboplast Time 48H 04/04/17 18:35: Activated Partial Thromboplast Time 137H 04/05/17 04:30: Activated Partial Thromboplast Time 29, White Blood Count 4.1L, Red Blood Count 2.35L, Hemoglobin 8.5L, Hematocrit 25.9L, Mean Corpuscular Volume 110H, Mean Corpuscular Hemoglobin 36.1H, Mean Corpuscular Hemoglobin Concent 32.7, Red Cell Distribution Width 14.0, Platelet Count 66L, Mean Platelet Volume 14.2H, Neutrophils (%) (Auto) , Lymphocytes (%) (Auto) , Monocytes (%) (Auto) , Eosinophils (%) (Auto) , Basophils (%) (Auto) , Neutrophils % (Manual) [Pending] , Lymphocytes % (Manual) [Pending], Platelet Estimate [Pending], Platelet Morphology [Pending], Sodium Level 147H, Potassium Level 4.3, Chloride Level 116H, Carbon Dioxide Level 21, Anion Gap 10, Blood Urea Nitrogen 22, Creatinine 0.4L, Estimat Glomerular Filtration Rate , Glucose Level 96, Calcium Level 8.6, Total Bilirubin < 0.2, Aspartate Amino Transf (AST/SGOT) 23, Alanine Aminotransferase (ALT/SGPT) 9, Alkaline Phosphatase 93, Total Protein 5.2L, Albumin 1.9L, Globulin 3.3, Albumin/Globulin Ratio 0.5L Height (Feet): 5 Height (Inches): 3.00 Weight (Pounds): 227 Objective General Appearance: WD/WN, confused Neck: supple Cardiovascular: normal rate, regular rhythm Respiratory/Chest: chest wall non-tender, no respiratory distress, no accessory muscle use, rhonchi - bilaterally Abdomen: normal bowel sounds, non tender, soft, no organomegaly Edema: no edema noted Arm (L), no edema noted Arm (R), no edema noted Leg (L), no edema noted Leg (R), no edema noted Pedal (L), no edema noted Pedal (R), no edema noted Generalized Neurologic: disoriented BREANNE SORIA Apr 05, 2017 07:53
[2017-04-05 08:27] LABS: ANISOCYTOSIS 1+; BAND NEUTROPHILS % (MANUAL) 0 % (0-8); BASOPHILS % (MANUAL) 0 % (0-2); EOSINOPHILS % (MANUAL) 3 % (0-3); HYPOCHROMASIA 1+; LYMPHOCYTES % (MANUAL) 27 % (20-45); MACROCYTES 1+; NEUTROPHILS % (MANUAL) 64 % (45-75); PLATELET ESTIMATE DECREASED; PLATELET MORPHOLOGY NORMAL; TOTAL CELLS COUNTED 100
[2017-04-05] MEDS: Valproic Acid 250mg/5ml Liquid GT SCH ×2 (08:38→20:40)
[2017-04-05] MEDS: Lacosamide 50mg tablet ORAL SCH ×2 (08:38→20:40)
--- NOTE | 2017-04-05 08:38 | Diagnostic Imaging Report ---
Indications: Endotracheal tube readjustment Technique: Portable AP chest Findings: Comparison: 04/01/17 Endotracheal tube has been withdrawn, tip now 5-6 cm above mahin. Nasogastric tube has been removed. Bilateral pulmonary subsegmental atelectasis is unchanged. Unobscured portions of cardiac mediastinal silhouette stable. No new abnormality identified. IMPRESSION: Withdrawal of endotracheal tube as described Removal of nasogastric tube Stable bilateral subsegmental atelectasis
[2017-04-05] MEDS: Ascorbic Acid 500mg tab GT SCH ×2 (08:48→18:22)
[2017-04-05] MEDS: Dyna-Hex 2% Top Sol 8oz TOPIC SCH (08:51)
[2017-04-05] MEDS: Amiodarone 200mg tab ORAL SCH ×2 (09:00→20:41)
[2017-04-05] MEDS ORDERED: NS 275ml ONE (10:40)
--- NOTE | 2017-04-05 11:19 | Critical Care Progress Note ---
Assessment/Plan Assessment/Plan IMPRESSION: 1. Respiratory failure . 2. Hypoxemia. 3. Evidence of pulmonary infiltrates consistent with pneumonia. 4. Hypotension. 5. Quadriparesis. 6. Bedbound state. 7. deep venous thrombosis. 8. Gastrostomy tube. 9. Known aspiration. 10. UTI 11. diarrhea 12. thrombocytopenia ?HIT PLAN ventilator as is weaning protocol cultures noted IV antibiotics IV heparin ? Xarelto pressors off monitor hemodynamics monitor oxygen needs ICU care as is for now critical at present close monitoring required nutrition suction with caution follow up cultures and adjust antibiotics reviewed ICU management medications/laboratory data/nursing notes/ICU care reviewed in detail note reviewed and edited care discussed with RN and RT ICU time spent 37 minutes Critical Care - Subjective Interval Events: noted and reviewed platelets dropping on heparin ROS Limited/Unobtainable: Yes Condition: critical EKG Rhythm: Sinus Rhythm Residuals: minimal Tube Feeding Tolerated: yes I&O: Intake and Output 04/04/17 04/05/17 19:00 07:00 Intake Total 1032.896 ml 1364.844 ml Output Total 565 ml 1311 ml Balance 467.896 ml 53.844 ml Intake Free Water 60 ml IV Total 672.896 ml 774.844 ml Tube Feeding 360 ml 530 ml Output Urine Total 565 ml 1310 ml Stool Total 1 ml # Bowel Movements 3 4 Critical Care - Objective ET-Tube: 7.5 ET Position: 20 Last 24 Hour Vital Signs Date Time Temp Pulse Resp B/P Pulse Ox O2 Delivery O2 Flow Rate FiO2 04/05/17 10:44 67 14 98 Mechanical Ventilator 50 04/05/17 10:34 50 04/05/17 10:34 65 14 98 Mechanical Ventilator 50 04/05/17 10:34 81 14 50 04/05/17 09:15 83 18 50 04/05/17 09:15 82 04/05/17 08:00 98.1 77 20 95/46 100 Mechanical Ventilator 50 04/05/17 08:00 50 04/05/17 06:56 88 18 50 04/05/17 05:21 79 17 50 04/05/17 04:00 50 04/05/17 04:00 98.0 80 20 109/46 100 Mechanical Ventilator 50 04/05/17 03:05 79 14 50 04/05/17 03:00 80 20 105/52 100 Mechanical Ventilator 50 6/19/17 02:00 80 20 109/46 100 Mechanical Ventilator 50 6/19/17 01:00 80 19 140/48 100 Mechanical Ventilator 50 6/19/17 00:53 78 18 50 6/19/17 00:00 50 6/19/17 00:00 97.8 81 19 131/43 100 Mechanical Ventilator 50 6/18/17 23:05 78 16 50 6/18/17 23:00 82 19 120/50 100 Mechanical Ventilator 50 6/18/17 22:00 78 18 117/43 100 Mechanical Ventilator 50 6/18/17 21:17 79 16 50 6/18/17 21:00 81 19 114/44 100 Mechanical Ventilator 50 6/18/17 20:00 50 6/18/17 20:00 98.8 81 18 110/41 100 Mechanical Ventilator 50 6/18/17 19:21 81 23 50 6/18/17 19:00 80 21 111/37 100 Mechanical Ventilator 50 6/18/17 18:30 81 20 114/38 100 Mechanical Ventilator 50 6/18/17 18:30 80 20 115/38 100 Mechanical Ventilator 50 6/18/17 18:00 81 22 115/38 100 Mechanical Ventilator 50 6/18/17 17:30 82 24 118/48 100 Mechanical Ventilator 50 6/18/17 17:17 71 19 50 6/18/17 17:00 120/45 6/18/17 17:00 78 20 120/45 100 Mechanical Ventilator 50 6/18/17 16:30 81 20 122/45 100 Mechanical Ventilator 50 6/18/17 16:00 98.2 78 23 126/44 100 Mechanical Ventilator 50 6/18/17 16:00 50 6/18/17 15:30 83 21 122/46 100 Mechanical Ventilator 50 6/18/17 15:16 83 26 50 6/18/17 15:00 82 20 120/45 100 Mechanical Ventilator 50 6/18/17 14:30 84 18 105/48 100 Mechanical Ventilator 50 6/18/17 14:00 84 24 118/54 99 Mechanical Ventilator 50 6/18/17 13:30 80 24 107/50 100 Mechanical Ventilator 50 6/18/17 13:18 78 19 50 6/18/17 13:00 78 20 121/41 100 Mechanical Ventilator 50 6/18/17 12:30 78 26 118/47 100 Mechanical Ventilator 50 6/18/17 12:00 98.7 75 25 119/48 100 Mechanical Ventilator 50 04/04/17 12:00 50 04/04/17 11:30 76 26 114/46 98 Mechanical Ventilator 50 Labs: Labs Test 04/02/17 13:40 04/03/17 07:25 04/03/17 23:05 04/04/17 04:00 Activated Partial Thromboplast Time 94 SEC (23-33) 72 SEC (23-33) 98 SEC (23-33) White Blood Count 4.3 K/UL (4.8-10.8) 3.1 K/UL (4.8-10.8) Red Blood Count 2.52 M/UL (4.20-5.40) 2.28 M/UL (4.20-5.40) Hemoglobin 9.3 G/DL (12.0-16.0) 8.2 G/DL (12.0-16.0) Hematocrit 27.1 % (37.0-47.0) 24.8 % (37.0-47.0) Mean Corpuscular Volume 108 FL (80-99) 109 FL (80-99) Mean Corpuscular Hemoglobin 37.0 PG (27.0-31.0) 36.1 PG (27.0-31.0) Mean Corpuscular Hemoglobin Concent 34.4 G/DL (32.0-36.0) 33.1 G/DL (32.0-36.0) Red Cell Distribution Width 13.3 % (11.6-14.8) 13.7 % (11.6-14.8) Platelet Count 61 K/UL (150-450) 59 K/UL (150-450) Mean Platelet Volume 13.2 FL (6.5-10.1) 14.9 FL (6.5-10.1) Neutrophils (%) (Auto) % (45.0-75.0) % (45.0-75.0) Lymphocytes (%) (Auto) % (20.0-45.0) % (20.0-45.0) Monocytes (%) (Auto) % (1.0-10.0) % (1.0-10.0) Eosinophils (%) (Auto) % (0.0-3.0) % (0.0-3.0) Basophils (%) (Auto) % (0.0-2.0) % (0.0-2.0) Differential Total Cells Counted 100 100 Neutrophils % (Manual) 77 % (45-75) 71 % (45-75) Lymphocytes % (Manual) 18 % (20-45) 21 % (20-45) Monocytes % (Manual) 2 % (1-10) 5 % (1-10) Eosinophils % (Manual) 3 % (0-3) 3 % (0-3) Basophils % (Manual) 0 % (0-2) 0 % (0-2) Band Neutrophils 0 % (0-8) 0 % (0-8) Platelet Estimate Decreased Decreased Platelet Morphology Normal Normal Red Blood Cell Morphology Normal Sodium Level 143 mEQ/L (135-145) 145 mEQ/L (135-145) Potassium Level 2.8 mEQ/L (3.4-4.9) 4.3 mEQ/L (3.4-4.9) Chloride Level 106 mEQ/L (98-107) 110 mEQ/L (98-107) Carbon Dioxide Level 19 mEQ/L (20-30) 21 mEQ/L (20-30) Anion Gap 18 (5-15) 14 (5-15) Blood Urea Nitrogen 26 mg/dL (7-23) 29 mg/dL (7-23) Creatinine 0.5 mg/dL (0.5-0.9) 0.5 mg/dL (0.5-0.9) Estimat Glomerular Filtration Rate mL/min (>60) mL/min (>60) Glucose Level 169 mg/dL (74-106) 92 mg/dL (74-106) Calcium Level 8.1 mg/dL (8.6-10.2) 8.6 mg/dL (8.6-10.2) Total Bilirubin 0.4 mg/dL (0.0-1.2) 0.2 mg/dL (0.0-1.2) Aspartate Amino Transf (AST/SGOT) 15 U/L (5-40) 15 U/L (5-40) Alanine Aminotransferase (ALT/SGPT) 7 U/L (3-33) 7 U/L (3-33) Alkaline Phosphatase 75 U/L (35-104) 91 U/L (35-104) Total Protein 5.5 g/dL (6.6-8.7) 4.9 g/dL (6.6-8.7) Albumin 1.9 g/dL (3.5-5.2) 1.7 g/dL (3.5-5.2) Globulin 3.6 g/dL 3.2 g/dL Albumin/Globulin Ratio 0.5 (1.0-2.7) 0.5 (1.0-2.7) Vancomycin Level Trough 23.2 ug/mL (5.0-12.0) Hypochromasia 1+ Anisocytosis 1+ Test 04/04/17 11:25 04/04/17 18:35 04/05/17 04:30 Activated Partial Thromboplast Time 48 SEC (23-33) 137 SEC (23-33) 29 SEC (23-33) White Blood Count 4.1 K/UL (4.8-10.8) Red Blood Count 2.35 M/UL (4.20-5.40) Hemoglobin 8.5 G/DL (12.0-16.0) Hematocrit 25.9 % (37.0-47.0) Mean Corpuscular Volume 110 FL (80-99) Mean Corpuscular Hemoglobin 36.1 PG (27.0-31.0) Mean Corpuscular Hemoglobin Concent 32.7 G/DL (32.0-36.0) Red Cell Distribution Width 14.0 % (11.6-14.8) Platelet Count 66 K/UL (150-450) Mean Platelet Volume 14.2 FL (6.5-10.1) Neutrophils (%) (Auto) % (45.0-75.0) Lymphocytes (%) (Auto) % (20.0-45.0) Monocytes (%) (Auto) % (1.0-10.0) Eosinophils (%) (Auto) % (0.0-3.0) Basophils (%) (Auto) % (0.0-2.0) Differential Total Cells Counted 100 Neutrophils % (Manual) 64 % (45-75) Lymphocytes % (Manual) 27 % (20-45) Monocytes % (Manual) 6 % (1-10) Eosinophils % (Manual) 3 % (0-3) Basophils % (Manual) 0 % (0-2) Band Neutrophils 0 % (0-8) Platelet Estimate Decreased Platelet Morphology Normal Hypochromasia 1+ Anisocytosis 1+ Macrocytosis 1+ Sodium Level 147 mEQ/L (135-145) Potassium Level 4.3 mEQ/L (3.4-4.9) Chloride Level 116 mEQ/L (98-107) Carbon Dioxide Level 21 mEQ/L (20-30) Anion Gap 10 (5-15) Blood Urea Nitrogen 22 mg/dL (7-23) Creatinine 0.4 mg/dL (0.5-0.9) Estimat Glomerular Filtration Rate mL/min (>60) Glucose Level 96 mg/dL (74-106) Calcium Level 8.6 mg/dL (8.6-10.2) Total Bilirubin < 0.2 mg/dL (0.0-1.2) Aspartate Amino Transf (AST/SGOT) 23 U/L (5-40) Alanine Aminotransferase (ALT/SGPT) 9 U/L (3-33) Alkaline Phosphatase 93 U/L (35-104) Total Protein 5.2 g/dL (6.6-8.7) Albumin 1.9 g/dL (3.5-5.2) Globulin 3.3 g/dL Albumin/Globulin Ratio 0.5 (1.0-2.7) Objective: GENERAL: The patient is a well-developed female, intubated HEENT: Negative. sluggish pupils NECK: Supple. no JVD LUNGS: Moderate breath sounds. no rhonchi noted diffusely. no wheeze; symmetric CARDIAC: S1 and S2. Regular rate and rhythm.without MRG ABDOMEN: Soft and nontender. The patient has a G-tube in place . no HSM Extremities: No cyanosis or clubbing. noted contractures. Quadriparesis. withdrawn skin noted reviewed and edited Accucheck: 195 SANCHEZ NAVARRETE Apr 05, 2017 11:19
--- NOTE | 2017-04-05 11:19 | Infectious Diseases Prog Note ---
Assessment/Plan Assessment/Plan A 1. UTI 2. pneumonia with pseudomonas 3. respiratory failure 4. multiple sclerosis 5. seizure disorder P; Change Azactam and Amikacin inhaler Requested microbiology to check Pseudomonas Azactam sensitivity Subjective ROS Limited/Unobtainable: Yes Allergies: Coded Allergies: CEFTRIAXONE (Verified Allergy, Unknown, 03/31/17) PENICILLINS (Verified Allergy, Unknown, 03/31/17) SULFA (SULFONAMIDE ANTIBIOTICS) (Verified Allergy, Unknown, 03/31/17) TAZOBACTAM (Verified Allergy, Unknown, 03/31/17) Objective Vital Signs Last 24 Hour Vital Signs Date Time Temp Pulse Resp B/P Pulse Ox O2 Delivery O2 Flow Rate FiO2 04/05/17 10:44 67 14 98 Mechanical Ventilator 50 04/05/17 10:34 50 04/05/17 10:34 65 14 98 Mechanical Ventilator 50 04/05/17 10:34 81 14 50 04/05/17 09:15 83 18 50 04/05/17 09:15 82 04/05/17 08:00 98.1 77 20 95/46 100 Mechanical Ventilator 50 04/05/17 08:00 50 04/05/17 06:56 88 18 50 04/05/17 05:21 79 17 50 04/05/17 04:00 50 04/05/17 04:00 98.0 80 20 109/46 100 Mechanical Ventilator 50 04/05/17 03:05 79 14 50 04/05/17 03:00 80 20 105/52 100 Mechanical Ventilator 50 04/05/17 02:00 80 20 109/46 100 Mechanical Ventilator 50 04/05/17 01:00 80 19 140/48 100 Mechanical Ventilator 50 04/05/17 00:53 78 18 50 04/05/17 00:00 50 04/05/17 00:00 97.8 81 19 131/43 100 Mechanical Ventilator 50 04/04/17 23:05 78 16 50 04/04/17 23:00 82 19 120/50 100 Mechanical Ventilator 50 04/04/17 22:00 78 18 117/43 100 Mechanical Ventilator 50 04/04/17 21:17 79 16 50 04/04/17 21:00 81 19 114/44 100 Mechanical Ventilator 50 04/04/17 20:00 50 04/04/17 20:00 98.8 81 18 110/41 100 Mechanical Ventilator 50 6/18/17 19:21 81 23 50 618/17 19:00 80 21 111/37 100 Mechanical Ventilator 50 18/17 18:30 81 20 114/38 100 Mechanical Ventilator 50 618/17 18:30 80 20 115/38 100 Mechanical Ventilator 50 618/17 18:00 81 22 115/38 100 Mechanical Ventilator 50 18/17 17:30 82 24 118/48 100 Mechanical Ventilator 50 18/17 17:17 71 19 50 18/17 17:00 120/45 1817 17:00 78 20 120/45 100 Mechanical Ventilator 50 18/17 16:30 81 20 122/45 100 Mechanical Ventilator 50 18/17 16:00 98.2 78 23 126/44 100 Mechanical Ventilator 50 18/17 16:00 50 18/17 15:30 83 21 122/46 100 Mechanical Ventilator 50 18/17 15:16 83 26 50 18/17 15:00 82 20 120/45 100 Mechanical Ventilator 50 17 14:30 84 18 105/48 100 Mechanical Ventilator 50 1817 14:00 84 24 118/54 99 Mechanical Ventilator 50 18/17 13:30 80 24 107/50 100 Mechanical Ventilator 50 18/17 13:18 78 19 50 618/17 13:00 78 20 121/41 100 Mechanical Ventilator 50 18/17 12:30 78 26 118/47 100 Mechanical Ventilator 50 1817 12:00 98.7 75 25 119/48 100 Mechanical Ventilator 50 17 12:00 50 1817 11:30 76 26 114/46 98 Mechanical Ventilator 50 Height (Feet): 5 Height (Inches): 3.00 Weight (Pounds): 227 HEENT: other - orally intubated Respiratory/Chest: lungs clear, other - on ventilator Cardiovascular: normal rate Abdomen: soft, non tender, other - GT feeding Extremities: other - R femoral line, edema Neurologic/Psychiatric: disoriented Laboratory Tests Test 04/04/17 11:25 04/04/17 18:35 04/05/17 04:30 Activated Partial Thromboplast Time 48 SEC (23-33) H 137 SEC (23-33) H 29 SEC (23-33) White Blood Count 4.1 K/UL (4.8-10.8) L Red Blood Count 2.35 M/UL (4.20-5.40) L Hemoglobin 8.5 G/DL (12.0-16.0) L Hematocrit 25.9 % (37.0-47.0) L Mean Corpuscular Volume 110 FL (80-99) H Mean Corpuscular Hemoglobin 36.1 PG (27.0-31.0) H Mean Corpuscular Hemoglobin Concent 32.7 G/DL (32.0-36.0) Red Cell Distribution Width 14.0 % (11.6-14.8) Platelet Count 66 K/UL (150-450) L Mean Platelet Volume 14.2 FL (6.5-10.1) H Neutrophils (%) (Auto) % (45.0-75.0) Lymphocytes (%) (Auto) % (20.0-45.0) Monocytes (%) (Auto) % (1.0-10.0) Eosinophils (%) (Auto) % (0.0-3.0) Basophils (%) (Auto) % (0.0-2.0) Differential Total Cells Counted 100 Neutrophils % (Manual) 64 % (45-75) Lymphocytes % (Manual) 27 % (20-45) Monocytes % (Manual) 6 % (1-10) Eosinophils % (Manual) 3 % (0-3) Basophils % (Manual) 0 % (0-2) Band Neutrophils 0 % (0-8) Platelet Estimate Decreased L Platelet Morphology Normal Hypochromasia 1+ Anisocytosis 1+ Macrocytosis 1+ Sodium Level 147 mEQ/L (135-145) H Potassium Level 4.3 mEQ/L (3.4-4.9) Chloride Level 116 mEQ/L (98-107) H Carbon Dioxide Level 21 mEQ/L (20-30) Anion Gap 10 (5-15) Blood Urea Nitrogen 22 mg/dL (7-23) Creatinine 0.4 mg/dL (0.5-0.9) L Estimat Glomerular Filtration Rate mL/min (>60) Glucose Level 96 mg/dL (74-106) Calcium Level 8.6 mg/dL (8.6-10.2) Total Bilirubin < 0.2 mg/dL (0.0-1.2) Aspartate Amino Transf (AST/SGOT) 23 U/L (5-40) Alanine Aminotransferase (ALT/SGPT) 9 U/L (3-33) Alkaline Phosphatase 93 U/L (35-104) Total Protein 5.2 g/dL (6.6-8.7) L Albumin 1.9 g/dL (3.5-5.2) L Globulin 3.3 g/dL Albumin/Globulin Ratio 0.5 (1.0-2.7) L Current Medications Medications (Trade) Dose Ordered Sig/Reji Route PRN Reason Start Time Stop Time Status Last Admin Dose Admin Acetaminophen 650 mg 650 mg Q4H PRN ORAL Mild Pain/Temp > 100.5 04/03/17 14:46 04/30/17 16:14 Albuterol Sulfate (Proventil) 2.5 mg Q4H PRN HHN Shortness of Breath 03/31/17 16:15 04/05/17 16:14 Amikacin Sulfate (Amikin) 500 mg Q12HR@10,22 INH 04/04/17 10:00 04/11/17 09:59 04/05/17 10:35 Amiodarone HCl 200 mg 200 mg EVERY 12 HOURS ORAL 04/04/17 09:00 05/04/17 08:59 04/04/17 09:00 Ascorbic Acid (Vitamin C) 500 mg TWICE A DAY GT 04/03/17 09:00 05/03/17 08:59 04/05/17 08:48 Aztreonam/Dextrose (Azactam/D5W) 55 ml @ 110 mls/hr Q8HR IVPB 04/04/17 09:30 04/11/17 09:29 04/05/17 06:06 Chlorhexidine Gluconate (Sheela-Hex 2%) 1 applic DAILY TOPIC 04/01/17 09:00 05/01/17 08:59 04/05/17 08:51 Furosemide (Lasix) 40 mg DAILY IV 04/05/17 09:00 05/05/17 08:59 04/05/17 08:38 Heparin Sodium/ Dextrose (Heparin) 500 ml @ 29.848 mls/ hr Q24H IV 04/05/17 05:28 05/04/17 12:29 04/05/17 05:47 Lacosamide (Vimpat) 50 mg Q12HR ORAL 03/31/17 21:00 04/30/17 20:59 04/05/17 08:38 Lansoprazole (Prevacid) 30 mg DAILY GT 04/02/17 10:30 05/02/17 10:29 04/05/17 08:37 Levothyroxine Sodium 50 mcg 50 mcg ACBREAKFAST GT 04/01/17 06:30 05/01/17 06:29 04/05/17 06:14 Norepinephrine Bitartrate/ Dextrose (Levophed/D5W) 250 ml @ 0 mls/hr Q24H IV 03/31/17 18:30 04/30/17 18:29 04/04/17 17:00 Valproic Acid (Depakene) 1,000 mg Q12HR GT 03/31/17 22:00 04/30/17 21:59 04/05/17 08:38 PARDEEP IRVING Apr 05, 2017 11:18
[2017-04-05 12:17] LABS: ABG ALLEN TEST POSITIVE; ABG BASE EXCESS -2.3; ABG PCO2 36.1 mmHg (35.0-45.0)
--- NOTE | 2017-04-05 14:42 | Wound Care Consultation ---
Wound Assessment Wound Assessment #1: Wound Number: #1 Wound Present on Admission: Yes New Wound: No Status Change of Wound: Yes - admitted with stage I now noted stage II appeared. Wound Location Body Site Modif: mid Wound Location Body Site: sacral Wound Type: pressure ulcer Anya Test: Does not Anya Pressure Ulcer Stage: II - linear Wound Length: 3.0 Wound Width: 0.5 Wound Depth: <0.1 Percent of Wound [place]/Red: 100 Wound Drainage Description: Serosanguineous Wound Drainage Amount: Scant Wound Drainage Odor: None/Absent Tissue Surrounding Wound: Erythemic Wound General Appearance: Reddened Wound Assessment #2: Wound Number: #2 Wound Present on Admission: No New Wound: Yes Status Change of Wound: No Wound Location Body Site Modif: left Wound Location Body Site: knee Wound Type: scab Anya Test: Does not Anya Wound Thickness: Partial Thickness Wound Length: 0.8 Wound Width: 0.8 Wound Depth: utd Percent of Wound [place]/Red: 100 - dry Wound Drainage Amount: None Wound Drainage Odor: None/Absent Tissue Surrounding Wound: Intact Wound Comment #1 Mid sacral pressure ulcer stage II. #2 Left knee scab. Recommendation. -Local wound care as ordered. -Turn and reposition. -Keep clean and dry. -Optimize nutrition. -low air loss SPR mattress. -Offload affected area. -Avoid shear and friction. -Assess and notify MD for any changes of condition in skin noted. PATRICIA WEINSTEIN Apr 05, 2017 14:42
--- NOTE | 2017-04-05 14:46 | Diagnostic Imaging Report ---
Indications: Infection, respiratory congestion Technique: Portable AP chest Findings: Comparison: 04/02/17 Lung volumes have increased. Linear densities persist in the right midlung, left base. Background bilateral interstitial prominence unchanged. Cardiac silhouette remains partially obscured. Left prosthetic angle remains somewhat indistinct; right sharp. IMPRESSION: Improvement in bilateral pulmonary inflation with persistent bilateral subsegmental atelectasis Small left pleural effusion not excludable, unchanged No new abnormality
--- NOTE | 2017-04-05 22:43 | Diagnostic Imaging Report ---
APPROVED REPORT CPT Code: 76377 Present Symptoms Shortness of breath Comments: Right cfv central line, bilateral scars at knee, quadraplegic. Technically difficult study due to pt body habitus. RIGHT LEG: Venous imaging reveals a patent deep venous system. There is no evidence of thrombus within the femoral, popliteal or tibial segments. The greater saphenous vein is also within normal limits. Doppler indicates normal spontaneous flow within these segments. LEFT LEG: Venous imaging reveals acute thrombus in the [id number] superficial femoral vein. Imaging also reveals chronic thrombus in the superficial femoral vein and the popliteal vein. Large collateral vein noted anterior to the superficial femoral artery. The remainder of the deep venous system is within normal limits. There is no evidence of thrombus within the femoral, popliteal or tibial segments. The greater saphenous vein is also within normal limits. SHANIKA Castro was notified of abnormal results at 18:00 hrs.
[2017-04-06] VITALS (24 sets, daily range): BP systolic 83–113; BP diastolic 34–51
[2017-04-06 05:02] LABS: MEAN CORPUSCULAR HEMOGLOBIN 35.7 PG (27.0-31.0); MEAN CORPUSCULAR HGB CONC 32.4 G/DL (32.0-36.0); MEAN CORPUSCULAR VOLUME 110 FL (80-99); MEAN PLATELET VOLUME 13.8 FL (6.5-10.1); PLATELET COUNT 102 K/UL (150-450); RED BLOOD COUNT 2.08 M/UL (4.20-5.40); RED CELL DISTRIBUTION WIDTH 14.1 % (11.6-14.8); WHITE BLOOD COUNT 5.4 K/UL (4.8-10.8)
[2017-04-06 05:14] LABS: ANION GAP 14 (5-15); CALCIUM 8.3 mg/dL (8.6-10.2); CARBON DIOXIDE 24 mEQ/L (20-30); CHLORIDE 113 mEQ/L (98-107); CREATININE 0.4 mg/dL (0.5-0.9); HEMOLYSIS 2; SODIUM 151 mEQ/L (135-145)
[2017-04-06] MEDS: Aztreonam Inj 1 GM in D5W 55 ML IVPB SCH ×3 (05:51→20:42)
[2017-04-06] MEDS ORDERED: Heparin 25,000 units/D5W 500ml (ACS/MI) IV SCH ×3 (08:30→23:58)
[2017-04-06] MEDS: Amiodarone 200mg tab ORAL SCH ×2 (09:00→20:41)
--- NOTE | 2017-04-06 09:23 | General Progress Note ---
Assessment/Plan Problem List: (1) Seizure disorder ICD Codes: G40.909 - Epilepsy, unspecified, not intractable, without status epilepticus SNOMED: 796619510 (2) ARF (acute renal failure) ICD Codes: N17.9 - Acute kidney failure, unspecified SNOMED: 88474086 Qualifiers: Qualified Codes: N17.9 - Acute kidney failure, unspecified (3) UTI (urinary tract infection) ICD Codes: N39.0 - Urinary tract infection, site not specified SNOMED: 10791829, 62080800 Qualifiers: Qualified Codes: N39.0 - Urinary tract infection, site not specified (4) Pneumonia ICD Codes: J18.9 - Pneumonia, unspecified organism SNOMED: 789792465, 41104467 Qualifiers: Qualified Codes: J18.1 - Lobar pneumonia, unspecified organism (5) Septic shock ICD Codes: A41.9 - Sepsis, unspecified organism; R65.21 - Severe sepsis with septic shock SNOMED: 74092776 (6) Hypoxia ICD Codes: R09.02 - Hypoxemia; R65.21 - Severe sepsis with septic shock SNOMED: 211935863, 00810636 (7) Altered level of consciousness ICD Codes: R40.4 - Transient alteration of awareness SNOMED: 5354077 Status: stable, progressing Assessment/Plan amiodarone dcd due to long pauses. defer to cards restarting ivf adjusted- hypotonic iv abx vent support resp rx monitor abg wean per pulm follow up cultures and pending labs heparin drip- monitor h/h and plts. may have to dc if plts continue to drop check stool ob will consider NOAC if stool ob negative may need ivc filter feeds cont sz rx picc today repeat cbc may need transfusion critical and guarded Subjective ROS Limited/Unobtainable: Yes Constitutional: Reports: malaise, weakness HEENT: Reports: no symptoms Cardiovascular: Reports: no symptoms Respiratory: Reports: no symptoms Gastrointestinal/Abdominal: Reports: difficulty swallowing Genitourinary: Reports: no symptoms Neurologic/Psychiatric: Reports: pre-existing deficit, seizure Endocrine: Reports: no symptoms Hematologic/Lymphatic: Reports: anemia Allergies: Coded Allergies: CEFTRIAXONE (Verified Allergy, Unknown, 03/31/17) PENICILLINS (Verified Allergy, Unknown, 03/31/17) SULFA (SULFONAMIDE ANTIBIOTICS) (Verified Allergy, Unknown, 03/31/17) TAZOBACTAM (Verified Allergy, Unknown, 03/31/17) All Systems: reviewed and negative except above Subjective remains on the vent. more alert. off levophed. tolerating feeds.elevated sodium noted. decrease h/h notes. no bleeding. Objective Last 24 Hour Vital Signs Date Time Temp Pulse Resp B/P Pulse Ox O2 Delivery O2 Flow Rate FiO2 04/06/17 09:00 89 22 100/47 100 Mechanical Ventilator 30 04/06/17 08:00 99.8 83 20 92/40 100 Mechanical Ventilator 30 04/06/17 08:00 40 04/06/17 08:00 75 04/06/17 07:30 80 14 40 04/06/17 07:00 86 20 102/46 100 Mechanical Ventilator 30 04/06/17 06:00 88 20 108/46 100 Mechanical Ventilator 30 04/06/17 05:23 88 19 40 04/06/17 05:00 92 19 106/43 97 Mechanical Ventilator 30 04/06/17 04:00 40 04/06/17 04:00 92 19 95/41 100 Mechanical Ventilator 30 04/06/17 04:00 92 04/06/17 03:23 89 18 40 04/06/17 03:00 89 16 110/47 100 Mechanical Ventilator 30 04/06/17 02:00 92 18 102/40 100 Mechanical Ventilator 30 04/06/17 01:10 95 26 40 04/06/17 01:00 94 19 104/42 100 Mechanical Ventilator 30 04/06/17 00:00 99.0 93 21 96/43 100 Mechanical Ventilator 30 04/06/17 00:00 40 04/06/17 00:00 93 04/05/17 23:31 72 15 98 Mechanical Ventilator 50 04/05/17 23:23 75 16 40 04/05/17 23:23 92 14 98 Mechanical Ventilator 50 04/05/17 23:23 30 04/05/17 23:00 94 22 95/40 100 Mechanical Ventilator 30 04/05/17 22:05 89 21 40 04/05/17 22:00 91 21 100/43 100 Mechanical Ventilator 30 04/05/17 21:00 91 19 100/44 100 Mechanical Ventilator 30 04/05/17 20:14 92 23 40 04/05/17 20:00 88 04/05/17 20:00 88 18 121/47 100 Mechanical Ventilator 30 04/05/17 20:00 40 04/05/17 19:00 98.8 91 19 95/44 100 Mechanical Ventilator 30 04/05/17 18:00 90 18 99/38 100 Mechanical Ventilator 30 04/05/17 17:00 92 20 93/45 100 Mechanical Ventilator 30 04/05/17 16:32 90 20 40 04/05/17 16:00 40 04/05/17 16:00 99.2 87 18 96/44 100 Mechanical Ventilator 40 04/05/17 15:00 87 18 96/44 100 Mechanical Ventilator 40 04/05/17 15:00 92 18 40 04/05/17 14:00 87 22 96/45 100 Mechanical Ventilator 40 04/05/17 13:00 78 17 95/47 100 Mechanical Ventilator 40 04/05/17 12:48 90 19 40 04/05/17 12:00 50 04/05/17 12:00 98.3 87 20 96/48 100 Mechanical Ventilator 50 04/05/17 11:00 83 19 104/48 100 Mechanical Ventilator 50 04/05/17 10:44 67 14 98 Mechanical Ventilator 50 04/05/17 10:34 50 04/05/17 10:34 65 14 98 Mechanical Ventilator 50 04/05/17 10:34 81 14 50 04/05/17 10:00 82 23 108/46 100 Mechanical Ventilator 50 Intake and Output 04/05/17 04/06/17 19:00 07:00 Intake Total 1069.645 ml 1183.616 ml Output Total 1860 ml 600 ml Balance -790.355 ml 583.616 ml Intake Free Water 150 ml IV Total 449.645 ml 373.616 ml Tube Feeding 620 ml 660 ml Output Urine Total 1860 ml 600 ml # Bowel Movements 3 5 Laboratory Tests 04/05/17 11:55: Arterial Blood pH 7.404, Arterial Blood Partial Pressure CO2 36.1, Arterial Blood Partial Pressure O2 159.5H, Arterial Blood HCO3 22.1, Arterial Blood Oxygen Saturation 98.6H, Arterial Blood Base Excess -2.3, Neil Test Positive 04/05/17 12:05: Activated Partial Thromboplast Time > 150*H 04/05/17 20:30: Activated Partial Thromboplast Time 57H 04/06/17 04:00: Activated Partial Thromboplast Time 178*H, White Blood Count 5.4, Red Blood Count 2.08L, Hemoglobin 7.4L, Hematocrit 23.0L, Mean Corpuscular Volume 110H, Mean Corpuscular Hemoglobin 35.7H, Mean Corpuscular Hemoglobin Concent 32.4, Red Cell Distribution Width 14.1, Platelet Count 102#L, Mean Platelet Volume 13.8H, Neutrophils (%) (Auto) , Lymphocytes (%) (Auto) , Monocytes (%) (Auto) , Eosinophils (%) (Auto) , Basophils (%) (Auto) , Neutrophils % (Manual) [Pending] , Lymphocytes % (Manual) [Pending], Platelet Estimate [Pending], Platelet Morphology [Pending], Sodium Level 151H, Potassium Level 4.0, Chloride Level 113H, Carbon Dioxide Level 24, Anion Gap 14, Blood Urea Nitrogen 20, Creatinine 0.4L, Estimat Glomerular Filtration Rate , Glucose Level 86, Calcium Level 8.3L Height (Feet): 5 Height (Inches): 3.00 Weight (Pounds): 231 Objective General Appearance: WD/WN, confused Neck: supple Cardiovascular: normal rate, regular rhythm Respiratory/Chest: chest wall non-tender, no respiratory distress, no accessory muscle use, rhonchi - bilaterally Abdomen: normal bowel sounds, non tender, soft, no organomegaly Edema: no edema noted Arm (L), no edema noted Arm (R), no edema noted Leg (L), no edema noted Leg (R), no edema noted Pedal (L), no edema noted Pedal (R), no edema noted Generalized Neurologic: disoriented BREANNE SORIA Apr 06, 2017 09:23
[2017-04-06 09:25] LABS: ANISOCYTOSIS 1+; BAND NEUTROPHILS % (MANUAL) 0 % (0-8); BASOPHILS % (MANUAL) 0 % (0-2); EOSINOPHILS % (MANUAL) 5 % (0-3); HYPOCHROMASIA 1+; LYMPHOCYTES % (MANUAL) 26 % (20-45); MACROCYTES 1+; NEUTROPHILS % (MANUAL) 60 % (45-75); PLATELET ESTIMATE DECREASED; PLATELET MORPHOLOGY NORMAL; TOTAL CELLS COUNTED 100
[2017-04-06] MEDS: Valproic Acid 250mg/5ml Liquid GT SCH ×2 (09:35→20:41)
[2017-04-06] MEDS: Ascorbic Acid 500mg tab GT SCH ×2 (09:35→17:41)
[2017-04-06] MEDS: Dyna-Hex 2% Top Sol 8oz TOPIC SCH (09:36)
[2017-04-06] MEDS: Lacosamide 50mg tablet ORAL SCH ×2 (09:36→20:41)
--- NOTE | 2017-04-06 09:40 | Critical Care Progress Note ---
Assessment/Plan Assessment/Plan IMPRESSION: 1. Respiratory failure . 2. Hypoxemia. 3. Evidence of pulmonary infiltrates consistent with pneumonia. 4. Hypotension. 5. Quadriparesis. 6. Bedbound state. 7. deep venous thrombosis. 8. Gastrostomy tube. 9. Known aspiration. 10. UTI 11. diarrhea 12. thrombocytopenia ?HIT PLAN ventilator noted weaning protocol written; will d/w RT cultures noted IV antibiotics IV heparin ? Xarelto; monitor platelets pressors off monitor hemodynamics monitor oxygen needs ICU care as is for now critical at present close monitoring required pressors as needed nutrition suction and monitoring for bleeding follow up cultures and adjust antibiotics reviewed ICU management medications/laboratory data/nursing notes/ICU care reviewed in detail note reviewed and edited care discussed with RN and RT ICU time spent 38 minutes Critical Care - Subjective Interval Events: weaning orders written care reviewed ROS Limited/Unobtainable: Yes Condition: critical EKG Rhythm: Sinus Rhythm Residuals: minimal Tube Feeding Tolerated: yes I&O: Intake and Output 04/05/17 04/06/17 19:00 07:00 Intake Total 1069.645 ml 1183.616 ml Output Total 1860 ml 600 ml Balance -790.355 ml 583.616 ml Intake Free Water 150 ml IV Total 449.645 ml 373.616 ml Tube Feeding 620 ml 660 ml Output Urine Total 1860 ml 600 ml # Bowel Movements 3 5 Critical Care - Objective ET-Tube: 7.5 ET Position: 21 Last 24 Hour Vital Signs Date Time Temp Pulse Resp B/P Pulse Ox O2 Delivery O2 Flow Rate FiO2 04/06/17 09:00 89 22 100/47 100 Mechanical Ventilator 30 04/06/17 08:00 99.8 83 20 92/40 100 Mechanical Ventilator 30 04/06/17 08:00 40 04/06/17 08:00 75 04/06/17 07:30 80 14 40 04/06/17 07:00 86 20 102/46 100 Mechanical Ventilator 30 04/06/17 06:00 88 20 108/46 100 Mechanical Ventilator 30 04/06/17 05:23 88 19 40 04/06/17 05:00 92 19 106/43 97 Mechanical Ventilator 30 04/06/17 04:00 40 04/06/17 04:00 92 19 95/41 100 Mechanical Ventilator 30 04/06/17 04:00 92 6/20/17 03:23 89 18 40 04/06/17 03:00 89 16 110/47 100 Mechanical Ventilator 30 04/06/17 02:00 92 18 102/40 100 Mechanical Ventilator 30 04/06/17 01:10 95 26 40 04/06/17 01:00 94 19 104/42 100 Mechanical Ventilator 30 04/06/17 00:00 99.0 93 21 96/43 100 Mechanical Ventilator 30 04/06/17 00:00 40 04/06/17 00:00 93 04/05/17 23:31 72 15 98 Mechanical Ventilator 50 04/05/17 23:23 75 16 40 04/05/17 23:23 92 14 98 Mechanical Ventilator 50 04/05/17 23:23 30 04/05/17 23:00 94 22 95/40 100 Mechanical Ventilator 30 04/05/17 22:05 89 21 40 04/05/17 22:00 91 21 100/43 100 Mechanical Ventilator 30 04/05/17 21:00 91 19 100/44 100 Mechanical Ventilator 30 04/05/17 20:14 92 23 40 04/05/17 20:00 88 04/05/17 20:00 88 18 121/47 100 Mechanical Ventilator 30 04/05/17 20:00 40 04/05/17 19:00 98.8 91 19 95/44 100 Mechanical Ventilator 30 04/05/17 18:00 90 18 99/38 100 Mechanical Ventilator 30 04/05/17 17:00 92 20 93/45 100 Mechanical Ventilator 30 04/05/17 16:32 90 20 40 04/05/17 16:00 40 04/05/17 16:00 99.2 87 18 96/44 100 Mechanical Ventilator 40 04/05/17 15:00 87 18 96/44 100 Mechanical Ventilator 40 04/05/17 15:00 92 18 40 04/05/17 14:00 87 22 96/45 100 Mechanical Ventilator 40 04/05/17 13:00 78 17 95/47 100 Mechanical Ventilator 40 04/05/17 12:48 90 19 40 04/05/17 12:00 50 04/05/17 12:00 98.3 87 20 96/48 100 Mechanical Ventilator 50 04/05/17 11:00 83 19 104/48 100 Mechanical Ventilator 50 04/05/17 10:44 67 14 98 Mechanical Ventilator 50 04/05/17 10:34 50 04/05/17 10:34 65 14 98 Mechanical Ventilator 50 04/05/17 10:34 81 14 50 04/05/17 10:00 82 23 108/46 100 Mechanical Ventilator 50 Labs: Labs Test 04/03/17 23:05 04/04/17 04:00 04/04/17 11:25 04/04/17 18:35 Vancomycin Level Trough 23.2 ug/mL (5.0-12.0) White Blood Count 3.1 K/UL (4.8-10.8) Red Blood Count 2.28 M/UL (4.20-5.40) Hemoglobin 8.2 G/DL (12.0-16.0) Hematocrit 24.8 % (37.0-47.0) Mean Corpuscular Volume 109 FL (80-99) Mean Corpuscular Hemoglobin 36.1 PG (27.0-31.0) Mean Corpuscular Hemoglobin Concent 33.1 G/DL (32.0-36.0) Red Cell Distribution Width 13.7 % (11.6-14.8) Platelet Count 59 K/UL (150-450) Mean Platelet Volume 14.9 FL (6.5-10.1) Neutrophils (%) (Auto) % (45.0-75.0) Lymphocytes (%) (Auto) % (20.0-45.0) Monocytes (%) (Auto) % (1.0-10.0) Eosinophils (%) (Auto) % (0.0-3.0) Basophils (%) (Auto) % (0.0-2.0) Differential Total Cells Counted 100 Neutrophils % (Manual) 71 % (45-75) Lymphocytes % (Manual) 21 % (20-45) Monocytes % (Manual) 5 % (1-10) Eosinophils % (Manual) 3 % (0-3) Basophils % (Manual) 0 % (0-2) Band Neutrophils 0 % (0-8) Platelet Estimate Decreased Platelet Morphology Normal Hypochromasia 1+ Anisocytosis 1+ Activated Partial Thromboplast Time 98 SEC (23-33) 48 SEC (23-33) 137 SEC (23-33) Sodium Level 145 mEQ/L (135-145) Potassium Level 4.3 mEQ/L (3.4-4.9) Chloride Level 110 mEQ/L (98-107) Carbon Dioxide Level 21 mEQ/L (20-30) Anion Gap 14 (5-15) Blood Urea Nitrogen 29 mg/dL (7-23) Creatinine 0.5 mg/dL (0.5-0.9) Estimat Glomerular Filtration Rate mL/min (>60) Glucose Level 92 mg/dL (74-106) Calcium Level 8.6 mg/dL (8.6-10.2) Total Bilirubin 0.2 mg/dL (0.0-1.2) Aspartate Amino Transf (AST/SGOT) 15 U/L (5-40) Alanine Aminotransferase (ALT/SGPT) 7 U/L (3-33) Alkaline Phosphatase 91 U/L (35-104) Total Protein 4.9 g/dL (6.6-8.7) Albumin 1.7 g/dL (3.5-5.2) Globulin 3.2 g/dL Albumin/Globulin Ratio 0.5 (1.0-2.7) Test 04/05/17 04:30 04/05/17 11:55 04/05/17 12:05 04/05/17 20:30 White Blood Count 4.1 K/UL (4.8-10.8) Red Blood Count 2.35 M/UL (4.20-5.40) Hemoglobin 8.5 G/DL (12.0-16.0) Hematocrit 25.9 % (37.0-47.0) Mean Corpuscular Volume 110 FL (80-99) Mean Corpuscular Hemoglobin 36.1 PG (27.0-31.0) Mean Corpuscular Hemoglobin Concent 32.7 G/DL (32.0-36.0) Red Cell Distribution Width 14.0 % (11.6-14.8) Platelet Count 66 K/UL (150-450) Mean Platelet Volume 14.2 FL (6.5-10.1) Neutrophils (%) (Auto) % (45.0-75.0) Lymphocytes (%) (Auto) % (20.0-45.0) Monocytes (%) (Auto) % (1.0-10.0) Eosinophils (%) (Auto) % (0.0-3.0) Basophils (%) (Auto) % (0.0-2.0) Differential Total Cells Counted 100 Neutrophils % (Manual) 64 % (45-75) Lymphocytes % (Manual) 27 % (20-45) Monocytes % (Manual) 6 % (1-10) Eosinophils % (Manual) 3 % (0-3) Basophils % (Manual) 0 % (0-2) Band Neutrophils 0 % (0-8) Platelet Estimate Decreased Platelet Morphology Normal Hypochromasia 1+ Anisocytosis 1+ Macrocytosis 1+ Activated Partial Thromboplast Time 29 SEC (23-33) > 150 SEC (23-33) 57 SEC (23-33) Sodium Level 147 mEQ/L (135-145) Potassium Level 4.3 mEQ/L (3.4-4.9) Chloride Level 116 mEQ/L (98-107) Carbon Dioxide Level 21 mEQ/L (20-30) Anion Gap 10 (5-15) Blood Urea Nitrogen 22 mg/dL (7-23) Creatinine 0.4 mg/dL (0.5-0.9) Estimat Glomerular Filtration Rate mL/min (>60) Glucose Level 96 mg/dL (74-106) Calcium Level 8.6 mg/dL (8.6-10.2) Total Bilirubin < 0.2 mg/dL (0.0-1.2) Aspartate Amino Transf (AST/SGOT) 23 U/L (5-40) Alanine Aminotransferase (ALT/SGPT) 9 U/L (3-33) Alkaline Phosphatase 93 U/L (35-104) Total Protein 5.2 g/dL (6.6-8.7) Albumin 1.9 g/dL (3.5-5.2) Globulin 3.3 g/dL Albumin/Globulin Ratio 0.5 (1.0-2.7) Arterial Blood pH 7.404 (7.350-7.450) Arterial Blood Partial Pressure CO2 36.1 mmHg (35.0-45.0) Arterial Blood Partial Pressure O2 159.5 mmHg (75.0-100.0) Arterial Blood HCO3 22.1 mmol/L (22.0-26.0) Arterial Blood Oxygen Saturation 98.6 % (92.0-98.0) Arterial Blood Base Excess -2.3 Neil Test Positive Test 04/06/17 04:00 White Blood Count 5.4 K/UL (4.8-10.8) Red Blood Count 2.08 M/UL (4.20-5.40) Hemoglobin 7.4 G/DL (12.0-16.0) Hematocrit 23.0 % (37.0-47.0) Mean Corpuscular Volume 110 FL (80-99) Mean Corpuscular Hemoglobin 35.7 PG (27.0-31.0) Mean Corpuscular Hemoglobin Concent 32.4 G/DL (32.0-36.0) Red Cell Distribution Width 14.1 % (11.6-14.8) Platelet Count 102 K/UL (150-450) Mean Platelet Volume 13.8 FL (6.5-10.1) Neutrophils (%) (Auto) % (45.0-75.0) Lymphocytes (%) (Auto) % (20.0-45.0) Monocytes (%) (Auto) % (1.0-10.0) Eosinophils (%) (Auto) % (0.0-3.0) Basophils (%) (Auto) % (0.0-2.0) Differential Total Cells Counted 100 Neutrophils % (Manual) 60 % (45-75) Lymphocytes % (Manual) 26 % (20-45) Monocytes % (Manual) 9 % (1-10) Eosinophils % (Manual) 5 % (0-3) Basophils % (Manual) 0 % (0-2) Band Neutrophils 0 % (0-8) Platelet Estimate Decreased Platelet Morphology Normal Hypochromasia 1+ Anisocytosis 1+ Macrocytosis 1+ Activated Partial Thromboplast Time 178 SEC (23-33) Sodium Level 151 mEQ/L (135-145) Potassium Level 4.0 mEQ/L (3.4-4.9) Chloride Level 113 mEQ/L (98-107) Carbon Dioxide Level 24 mEQ/L (20-30) Anion Gap 14 (5-15) Blood Urea Nitrogen 20 mg/dL (7-23) Creatinine 0.4 mg/dL (0.5-0.9) Estimat Glomerular Filtration Rate mL/min (>60) Glucose Level 86 mg/dL (74-106) Calcium Level 8.3 mg/dL (8.6-10.2) Objective: GENERAL: The patient is a well-developed female, intubated HEENT: Negative. sluggish pupils NECK: Supple. no JVD LUNGS: Moderate breath sounds. no rhonchi noted diffusely. no wheeze; symmetric; no change CARDIAC: S1 and S2. Regular rate and rhythm.without MRG ABDOMEN: Soft and nontender. The patient has a G-tube in place . no HSM Extremities: No cyanosis or clubbing. noted contractures. Quadriparesis. withdrawn skin noted reviewed and edited Accucheck: 195 SANCHEZ NAVARRETE Apr 06, 2017 09:40
[2017-04-06] MEDS: Amikacin for Inhalation 2ML INH SCH ×2 (10:00→23:20)
--- NOTE | 2017-04-06 12:22 | Infectious Diseases Prog Note ---
"Assessment/Plan Assessment/Plan antibiotics : aztreonam, inhaled amikacin A 1. protues | e.coli UTI 2. pseudomonas pneumonia 3. respiratory failure 4. multiple sclerosis 5. seizure disorder P 1. continue aztreonam, inhaled amikacin 2. will follow up cultures Subjective ROS Limited/Unobtainable: Yes Allergies: Coded Allergies: CEFTRIAXONE (Verified Allergy, Unknown, 03/31/17) PENICILLINS (Verified Allergy, Unknown, 03/31/17) SULFA (SULFONAMIDE ANTIBIOTICS) (Verified Allergy, Unknown, 03/31/17) TAZOBACTAM (Verified Allergy, Unknown, 03/31/17) Objective Vital Signs Last 24 Hour Vital Signs Date Time Temp Pulse Resp B/P Pulse Ox O2 Delivery O2 Flow Rate FiO2 04/06/17 11:20 92 17 40 04/06/17 11:00 92 18 110/44 95 Mechanical Ventilator 30 04/06/17 10:00 91 20 109/51 98 Mechanical Ventilator 30 04/06/17 09:52 30 04/06/17 09:52 93 14 98 Mechanical Ventilator 30 04/06/17 09:51 93 16 97 Mechanical Ventilator 30 04/06/17 09:20 88 14 40 04/06/17 09:00 89 22 100/47 100 Mechanical Ventilator 30 04/06/17 08:00 99.8 83 20 92/40 100 Mechanical Ventilator 30 04/06/17 08:00 40 04/06/17 08:00 75 04/06/17 07:30 80 14 40 04/06/17 07:00 86 20 102/46 100 Mechanical Ventilator 30 04/06/17 06:00 88 20 108/46 100 Mechanical Ventilator 30 04/06/17 05:23 88 19 40 04/06/17 05:00 92 19 106/43 97 Mechanical Ventilator 30 04/06/17 04:00 40 04/06/17 04:00 92 19 95/41 100 Mechanical Ventilator 30 04/06/17 04:00 92 04/06/17 03:23 89 18 40 04/06/17 03:00 89 16 110/47 100 Mechanical Ventilator 30 04/06/17 02:00 92 18 102/40 100 Mechanical Ventilator 30 04/06/17 01:10 95 26 40 04/06/17 01:00 94 19 104/42 100 Mechanical Ventilator 30 04/06/17 00:00 99.0 93 21 96/43 100 Mechanical Ventilator 30 04/06/17 00:00 40 04/06/17 00:00 93 04/05/17 23:31 72 15 98 Mechanical Ventilator 50 04/05/17 23:23 75 16 40 04/05/17 23:23 92 14 98 Mechanical Ventilator 50 04/05/17 23:23 30 04/05/17 23:00 94 22 95/40 100 Mechanical Ventilator 30 04/05/17 22:05 89 21 40 04/05/17 22:00 91 21 100/43 100 Mechanical Ventilator 30 04/05/17 21:00 91 19 100/44 100 Mechanical Ventilator 30 04/05/17 20:14 92 23 40 04/05/17 20:00 88 04/05/17 20:00 88 18 121/47 100 Mechanical Ventilator 30 04/05/17 20:00 40 04/05/17 19:00 98.8 91 19 95/44 100 Mechanical Ventilator 30 04/05/17 18:00 90 18 99/38 100 Mechanical Ventilator 30 04/05/17 17:00 92 20 93/45 100 Mechanical Ventilator 30 04/05/17 16:32 90 20 40 04/05/17 16:00 40 04/05/17 16:00 99.2 87 18 96/44 100 Mechanical Ventilator 40 04/05/17 15:00 87 18 96/44 100 Mechanical Ventilator 40 04/05/17 15:00 92 18 40 04/05/17 14:00 87 22 96/45 100 Mechanical Ventilator 40 04/05/17 13:00 78 17 95/47 100 Mechanical Ventilator 40 04/05/17 12:48 90 19 40 Height (Feet): 5 Height (Inches): 3.00 Weight (Pounds): 231 HEENT: other - intubated Respiratory/Chest: lungs clear Cardiovascular: normal rate, regular rhythm, no gallop/murmur Abdomen: soft, non tender, other - GT Extremities: other - + edema Laboratory Tests Test 04/05/17 20:30 04/06/17 04:00 Activated Partial Thromboplast Time 57 SEC (23-33) H 178 SEC (23-33) *H White Blood Count 5.4 K/UL (4.8-10.8) Red Blood Count 2.08 M/UL (4.20-5.40) L Hemoglobin 7.4 G/DL (12.0-16.0) L Hematocrit 23.0 % (37.0-47.0) L Mean Corpuscular Volume 110 FL (80-99) H Mean Corpuscular Hemoglobin 35.7 PG (27.0-31.0) H Mean Corpuscular Hemoglobin Concent 32.4 G/DL (32.0-36.0) Red Cell Distribution Width 14.1 % (11.6-14.8) Platelet Count 102 K/UL (150-450) #L Mean Platelet Volume 13.8 FL (6.5-10.1) H Neutrophils (%) (Auto) % (45.0-75.0) Lymphocytes (%) (Auto) % (20.0-45.0) Monocytes (%) (Auto) % (1.0-10.0) Eosinophils (%) (Auto) % (0.0-3.0) Basophils (%) (Auto) % (0.0-2.0) Differential Total Cells Counted 100 Neutrophils % (Manual) 60 % (45-75) Lymphocytes % (Manual) 26 % (20-45) Monocytes % (Manual) 9 % (1-10) Eosinophils % (Manual) 5 % (0-3) H Basophils % (Manual) 0 % (0-2) Band Neutrophils 0 % (0-8) Platelet Estimate Decreased L Platelet Morphology Normal Hypochromasia 1+ Anisocytosis 1+ Macrocytosis 1+ Sodium Level 151 mEQ/L (135-145) H Potassium Level 4.0 mEQ/L (3.4-4.9) Chloride Level 113 mEQ/L (98-107) H Carbon Dioxide Level 24 mEQ/L (20-30) Anion Gap 14 (5-15) Blood Urea Nitrogen 20 mg/dL (7-23) Creatinine 0.4 mg/dL (0.5-0.9) L Estimat Glomerular Filtration Rate mL/min (>60) Glucose Level 86 mg/dL (74-106) Calcium Level 8.3 mg/dL (8.6-10.2) KAMRAN SHEN Apr 06, 2017 12:22"
[2017-04-06] MEDS ORDERED: Atropine Inj 1mg/10ml Syr IVP ONE ×2 (12:30→18:45)
[2017-04-06 13:42] LABS: BASOPHILS % (AUTO) 0.9 % (0.0-2.0); EOSINOPHILS % (AUTO) 2.3 % (0.0-3.0); LYMPHOCYTES % (AUTO) 35.7 % (20.0-45.0); MEAN CORPUSCULAR HGB CONC 32.8 G/DL (32.0-36.0); MEAN CORPUSCULAR VOLUME 107 FL (80-99); MEAN PLATELET VOLUME 12.9 FL (6.5-10.1); MONOCYTES % (AUTO) 7.9 % (1.0-10.0); NEUTROPHILS % (AUTO) 53.1 % (45.0-75.0); PLATELET COUNT 144 K/UL (150-450); RED BLOOD COUNT 2.32 M/UL (4.20-5.40); RED CELL DISTRIBUTION WIDTH 13.9 % (11.6-14.8); WHITE BLOOD COUNT 5.6 K/UL (4.8-10.8)
[2017-04-06] MEDS ORDERED: Heparin 5000 units/ml inj IV ONE (16:00)
--- NOTE | 2017-04-06 20:13 | Cardiology Report ---
APPROVED REPORT EKG Measurement Heart [id number] Normal sinus rhythm Prolonged QT Abnormal ECG
--- NOTE | 2017-04-06 22:33 | Cardiac Electrophysiology PN ---
Assessment/Plan Problem List: (1) ARF (acute renal failure) (2) UTI (urinary tract infection) (3) Pneumonia (4) Septic shock (5) Wide-complex tachycardia (6) Paroxysmal atrial fibrillation with rapid ventricular response Status: not improved, unchanged Status Narrative Pt has been having pauses to appx 3 sec today. she is on oral ( GT) amiodarone bid No AF noted She remains vent-dependent Assessment/Plan Will stop amiodarone and continue to monitor. Pacing pads have been placed on chest, w/ rate set to 40 bpm (tested for capture - threshold 85 ma) Atropine at bedside. Continue iv abx, vent support, g tube feeds per primary team. Subjective ROS Limited/Unobtainable: Yes Subjective Intubated, minimally responsive Objective Last 24 Hour Vital Signs Date Time Temp Pulse Resp B/P Pulse Ox O2 Delivery O2 Flow Rate FiO2 04/06/17 21:06 30 04/06/17 21:05 81 16 96 Mechanical Ventilator 30 04/06/17 21:04 81 16 30 04/06/17 21:00 82 24 86/38 96 Mechanical Ventilator 30 04/06/17 20:00 99.2 83 24 84/39 96 Mechanical Ventilator 30 04/06/17 20:00 40 04/06/17 20:00 83 04/06/17 19:24 85 21 30 04/06/17 19:00 88 22 83/34 97 Mechanical Ventilator 30 04/06/17 18:11 100.3 04/06/17 18:00 93 23 84/39 98 Mechanical Ventilator 30 04/06/17 17:20 95 24 40 04/06/17 17:00 97 21 89/39 97 Mechanical Ventilator 30 04/06/17 16:00 40 04/06/17 16:00 90 04/06/17 16:00 100.8 90 22 104/47 99 Mechanical Ventilator 30 04/06/17 15:22 89 18 40 04/06/17 15:00 90 22 88/37 99 Mechanical Ventilator 30 04/06/17 14:00 90 23 88/38 99 Mechanical Ventilator 30 04/06/17 13:25 90 22 40 04/06/17 13:00 94 22 97/41 99 Mechanical Ventilator 30 04/06/17 12:00 40 04/06/17 12:00 99.8 92 22 95/41 99 Mechanical Ventilator 30 04/06/17 12:00 92 04/06/17 11:20 92 17 40 04/06/17 11:00 92 18 110/44 95 Mechanical Ventilator 30 04/06/17 10:00 91 20 109/51 98 Mechanical Ventilator 30 04/06/17 09:52 30 04/06/17 09:52 93 14 98 Mechanical Ventilator 30 04/06/17 09:51 93 16 97 Mechanical Ventilator 30 04/06/17 09:20 88 14 40 04/06/17 09:00 89 22 100/47 100 Mechanical Ventilator 30 04/06/17 08:00 99.8 83 20 92/40 100 Mechanical Ventilator 30 04/06/17 08:00 40 04/06/17 08:00 75 04/06/17 07:30 80 14 40 04/06/17 07:00 86 20 102/46 100 Mechanical Ventilator 30 04/06/17 06:00 88 20 108/46 100 Mechanical Ventilator 30 04/06/17 05:23 88 19 40 04/06/17 05:00 92 19 106/43 97 Mechanical Ventilator 30 04/06/17 04:00 40 04/06/17 04:00 92 19 95/41 100 Mechanical Ventilator 30 04/06/17 04:00 92 04/06/17 03:23 89 18 40 04/06/17 03:00 89 16 110/47 100 Mechanical Ventilator 30 04/06/17 02:00 92 18 102/40 100 Mechanical Ventilator 30 04/06/17 01:10 95 26 40 04/06/17 01:00 94 19 104/42 100 Mechanical Ventilator 30 04/06/17 00:00 99.0 93 21 96/43 100 Mechanical Ventilator 30 04/06/17 00:00 40 04/06/17 00:00 93 04/05/17 23:31 72 15 98 Mechanical Ventilator 50 04/05/17 23:23 75 16 40 04/05/17 23:23 92 14 98 Mechanical Ventilator 50 04/05/17 23:23 30 04/05/17 23:00 94 22 95/40 100 Mechanical Ventilator 30 General Appearance: lethargic, on vent EENT: other - ET tube in place Neck: no JVD Rhythm: NSR Cardiovascular: normal rate, regular rhythm, no gallop/murmur Respiratory/Chest: rhonchi - bilaterally Abdomen: non tender, soft, other - g tube Extremities: trace edema, other - contractures ue bilat Intake and Output 04/05/17 04/06/17 19:00 07:00 Intake Total 1069.645 ml 1200.356 ml Output Total 1860 ml 600 ml Balance -790.355 ml 600.356 ml Intake Free Water 150 ml IV Total 449.645 ml 390.356 ml Tube Feeding 620 ml 660 ml Output Urine Total 1860 ml 600 ml # Bowel Movements 3 5 Laboratory Tests Test 04/06/17 04:00 04/06/17 13:05 White Blood Count 5.4 K/UL (4.8-10.8) 5.6 K/UL (4.8-10.8) Red Blood Count 2.08 M/UL (4.20-5.40) L 2.32 M/UL (4.20-5.40) L Hemoglobin 7.4 G/DL (12.0-16.0) L 8.1 G/DL (12.0-16.0) L Hematocrit 23.0 % (37.0-47.0) L 24.8 % (37.0-47.0) L Mean Corpuscular Volume 110 FL (80-99) H 107 FL (80-99) H Mean Corpuscular Hemoglobin 35.7 PG (27.0-31.0) H 35.0 PG (27.0-31.0) H Mean Corpuscular Hemoglobin Concent 32.4 G/DL (32.0-36.0) 32.8 G/DL (32.0-36.0) Red Cell Distribution Width 14.1 % (11.6-14.8) 13.9 % (11.6-14.8) Platelet Count 102 K/UL (150-450) #L 144 K/UL (150-450) L Mean Platelet Volume 13.8 FL (6.5-10.1) H 12.9 FL (6.5-10.1) H Neutrophils (%) (Auto) % (45.0-75.0) 53.1 % (45.0-75.0) Lymphocytes (%) (Auto) % (20.0-45.0) 35.7 % (20.0-45.0) Monocytes (%) (Auto) % (1.0-10.0) 7.9 % (1.0-10.0) Eosinophils (%) (Auto) % (0.0-3.0) 2.3 % (0.0-3.0) Basophils (%) (Auto) % (0.0-2.0) 0.9 % (0.0-2.0) Differential Total Cells Counted 100 Neutrophils % (Manual) 60 % (45-75) Lymphocytes % (Manual) 26 % (20-45) Monocytes % (Manual) 9 % (1-10) Eosinophils % (Manual) 5 % (0-3) H Basophils % (Manual) 0 % (0-2) Band Neutrophils 0 % (0-8) Platelet Estimate Decreased L Platelet Morphology Normal Hypochromasia 1+ Anisocytosis 1+ Macrocytosis 1+ Activated Partial Thromboplast Time 178 SEC (23-33) *H 47 SEC (23-33) H Sodium Level 151 mEQ/L (135-145) H Potassium Level 4.0 mEQ/L (3.4-4.9) Chloride Level 113 mEQ/L (98-107) H Carbon Dioxide Level 24 mEQ/L (20-30) Anion Gap 14 (5-15) Blood Urea Nitrogen 20 mg/dL (7-23) Creatinine 0.4 mg/dL (0.5-0.9) L Estimat Glomerular Filtration Rate mL/min (>60) Glucose Level 86 mg/dL (74-106) Calcium Level 8.3 mg/dL (8.6-10.2) SIXTO VALVERDE Apr 06, 2017 22:33
[2017-04-07] VITALS (24 sets, daily range): BP systolic 92–123; BP diastolic 38–84
--- NOTE | 2017-04-07 03:45 | Progress Note ---
DATE: 04/06/2017 CARDIOLOGY PROGRESS NOTE SUBJECTIVE: The case was discussed with the fruit and vegetable factory worker Dr. Barker. The patient has had pauses up to 3 seconds. Today, she is on oral amiodarone. No noted atrial fibrillation. OBJECTIVE: VITAL SIGNS: Blood pressure 86/38, pulse 82, respirations 24, and temperature max 100.8. LUNGS: Coarse breath sounds. Scattered rhonchi. HEART: Regular rhythm and rate. ABDOMEN: Soft. EXTREMITIES: Trace edema. Orally intubated. ASSESSMENT: 1. Respiratory failure. 2. Sepsis with shock. 3. Paroxysmal atrial fibrillation. 4. 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 5. Multiple sclerosis. 6. Pneumonia. 7. Urinary tract infection. PLAN: 1. Antibiotics. 2. Ventilator support. 3. Atropine at bedside. 4. Discontinue amiodarone. Nick Gilbert M.D. DR: CYNDIE JOB#: [id number] CC:
[2017-04-07] MEDS: Aztreonam Inj 1 GM in D5W 55 ML IVPB SCH (06:10)
[2017-04-07 06:27] LABS: MEAN CORPUSCULAR HEMOGLOBIN 36.7 PG (27.0-31.0); MEAN CORPUSCULAR VOLUME 108 FL (80-99); MEAN PLATELET VOLUME 11.8 FL (6.5-10.1); PLATELET COUNT 177 K/UL (150-450); RED BLOOD COUNT 2.17 M/UL (4.20-5.40); WHITE BLOOD COUNT 6.6 K/UL (4.8-10.8)
[2017-04-07 06:42] LABS: ALANINE AMINOTRANSFERASE 7 U/L (3-33); ALBUMIN/GLOBULIN RATIO 0.5 (1.0-2.7); ANION GAP 13 (5-15); ASPARTATE AMINO TRANSFERASE 19 U/L (5-40); CALCIUM 7.9 mg/dL (8.6-10.2); CARBON DIOXIDE 26 mEQ/L (20-30); CHLORIDE 105 mEQ/L (98-107); CREATININE 0.4 mg/dL (0.5-0.9); HEMOLYSIS 5; POTASSIUM 3.5 mEQ/L (3.4-4.9); SODIUM 144 mEQ/L (135-145); TOTAL PROTEIN 5.2 g/dL (6.6-8.7)
--- NOTE | 2017-04-07 06:47 | Critical Care Progress Note ---
Assessment/Plan Assessment/Plan IMPRESSION: 1. Respiratory failure . 2. Hypoxemia. 3. Evidence of pulmonary infiltrates consistent with pneumonia. 4. Hypotension. 5. Quadriparesis. 6. Bedbound state. 7. deep venous thrombosis. 8. Gastrostomy tube. 9. Known aspiration. 10. UTI 11. diarrhea 12. thrombocytopenia 13. hypernatremia 14. worsening anemia PLAN ventilator noted weaning protocol written; retry today cultures noted IV antibiotics IV heparin ? Xarelto; monitor platelets- improved pressors off monitor hemodynamics monitor oxygen needs ICU care as is for now critical at present hypotonic fluids consider transfusion close monitoring required nutrition suction and monitoring for bleeding follow up cultures and adjust antibiotics reviewed ICU management medications/laboratory data/nursing notes/ICU care reviewed in detail note reviewed and edited care discussed with RN and RT ICU time spent 36 minutes Critical Care - Subjective Interval Events: weaning ordered still on AC withdrawn ROS Limited/Unobtainable: Yes Condition: critical EKG Rhythm: Sinus Rhythm Residuals: minimal Tube Feeding Tolerated: yes I&O: Intake and Output 04/06/17 04/07/17 19:00 07:00 Intake Total 934.24 ml 1777.6 ml Output Total 1735 ml 500 ml Balance -800.76 ml 1277.6 ml Intake Free Water 150 ml IV Total 274.24 ml 1022.6 ml Tube Feeding 660 ml 605 ml Output Urine Total 1735 ml 500 ml # Bowel Movements 3 1 Critical Care - Objective ET-Tube: 7.5 ET Position: 20 Last 24 Hour Vital Signs Date Time Temp Pulse Resp B/P Pulse Ox O2 Delivery O2 Flow Rate FiO2 04/07/17 06:35 78 18 30 04/07/17 06:00 80 20 113/46 98 Mechanical Ventilator 30 04/07/17 05:08 80 16 30 04/07/17 05:00 76 18 110/48 98 Mechanical Ventilator 30 04/07/17 04:00 98.8 80 17 107/40 98 Mechanical Ventilator 30 04/07/17 04:00 30 04/07/17 04:00 80 04/07/17 03:01 69 17 30 04/07/17 03:00 76 19 112/45 98 Mechanical Ventilator 30 04/07/17 02:00 80 18 98/40 98 Mechanical Ventilator 30 04/07/17 01:11 81 19 30 04/07/17 01:00 79 17 99/38 98 Mechanical Ventilator 30 04/07/17 00:00 80 04/07/17 00:00 40 04/07/17 00:00 98.7 80 17 109/54 96 Mechanical Ventilator 30 04/06/17 23:18 74 19 30 04/06/17 23:00 83 23 101/39 98 Mechanical Ventilator 30 04/06/17 22:00 77 21 113/43 97 Mechanical Ventilator 30 04/06/17 21:16 79 17 97 Mechanical Ventilator 30 04/06/17 21:06 30 04/06/17 21:05 81 16 96 Mechanical Ventilator 30 04/06/17 21:04 81 16 30 04/06/17 21:00 82 24 86/38 96 Mechanical Ventilator 30 04/06/17 20:00 99.2 83 24 84/39 96 Mechanical Ventilator 30 04/06/17 20:00 40 04/06/17 20:00 83 04/06/17 19:24 85 21 30 04/06/17 19:00 88 22 83/34 97 Mechanical Ventilator 30 04/06/17 18:11 100.3 04/06/17 18:00 93 23 84/39 98 Mechanical Ventilator 30 04/06/17 17:20 95 24 40 04/06/17 17:00 97 21 89/39 97 Mechanical Ventilator 30 04/06/17 16:00 40 04/06/17 16:00 90 04/06/17 16:00 100.8 90 22 104/47 99 Mechanical Ventilator 30 04/06/17 15:22 89 18 40 04/06/17 15:00 90 22 88/37 99 Mechanical Ventilator 30 04/06/17 14:00 90 23 88/38 99 Mechanical Ventilator 30 04/06/17 13:25 90 22 40 04/06/17 13:00 94 22 97/41 99 Mechanical Ventilator 30 04/06/17 12:00 40 04/06/17 12:00 99.8 92 22 95/41 99 Mechanical Ventilator 30 04/06/17 12:00 92 04/06/17 11:20 92 17 40 04/06/17 11:00 92 18 110/44 95 Mechanical Ventilator 30 04/06/17 10:00 91 20 109/51 98 Mechanical Ventilator 30 04/06/17 09:52 30 04/06/17 09:52 93 14 98 Mechanical Ventilator 30 04/06/17 09:51 93 16 97 Mechanical Ventilator 30 04/06/17 09:20 88 14 40 04/06/17 09:00 89 22 100/47 100 Mechanical Ventilator 30 04/06/17 08:00 99.8 83 20 92/40 100 Mechanical Ventilator 30 04/06/17 08:00 40 04/06/17 08:00 75 04/06/17 07:30 80 14 40 04/06/17 07:00 86 20 102/46 100 Mechanical Ventilator 30 Labs: Labs Test 04/04/17 11:25 04/04/17 18:35 04/05/17 04:30 04/05/17 11:55 Activated Partial Thromboplast Time 48 SEC (23-33) 137 SEC (23-33) 29 SEC (23-33) White Blood Count 4.1 K/UL (4.8-10.8) Red Blood Count 2.35 M/UL (4.20-5.40) Hemoglobin 8.5 G/DL (12.0-16.0) Hematocrit 25.9 % (37.0-47.0) Mean Corpuscular Volume 110 FL (80-99) Mean Corpuscular Hemoglobin 36.1 PG (27.0-31.0) Mean Corpuscular Hemoglobin Concent 32.7 G/DL (32.0-36.0) Red Cell Distribution Width 14.0 % (11.6-14.8) Platelet Count 66 K/UL (150-450) Mean Platelet Volume 14.2 FL (6.5-10.1) Neutrophils (%) (Auto) % (45.0-75.0) Lymphocytes (%) (Auto) % (20.0-45.0) Monocytes (%) (Auto) % (1.0-10.0) Eosinophils (%) (Auto) % (0.0-3.0) Basophils (%) (Auto) % (0.0-2.0) Differential Total Cells Counted 100 Neutrophils % (Manual) 64 % (45-75) Lymphocytes % (Manual) 27 % (20-45) Monocytes % (Manual) 6 % (1-10) Eosinophils % (Manual) 3 % (0-3) Basophils % (Manual) 0 % (0-2) Band Neutrophils 0 % (0-8) Platelet Estimate Decreased Platelet Morphology Normal Hypochromasia 1+ Anisocytosis 1+ Macrocytosis 1+ Sodium Level 147 mEQ/L (135-145) Potassium Level 4.3 mEQ/L (3.4-4.9) Chloride Level 116 mEQ/L (98-107) Carbon Dioxide Level 21 mEQ/L (20-30) Anion Gap 10 (5-15) Blood Urea Nitrogen 22 mg/dL (7-23) Creatinine 0.4 mg/dL (0.5-0.9) Estimat Glomerular Filtration Rate mL/min (>60) Glucose Level 96 mg/dL (74-106) Calcium Level 8.6 mg/dL (8.6-10.2) Total Bilirubin < 0.2 mg/dL (0.0-1.2) Aspartate Amino Transf (AST/SGOT) 23 U/L (5-40) Alanine Aminotransferase (ALT/SGPT) 9 U/L (3-33) Alkaline Phosphatase 93 U/L (35-104) Total Protein 5.2 g/dL (6.6-8.7) Albumin 1.9 g/dL (3.5-5.2) Globulin 3.3 g/dL Albumin/Globulin Ratio 0.5 (1.0-2.7) Arterial Blood pH 7.404 (7.350-7.450) Arterial Blood Partial Pressure CO2 36.1 mmHg (35.0-45.0) Arterial Blood Partial Pressure O2 159.5 mmHg (75.0-100.0) Arterial Blood HCO3 22.1 mmol/L (22.0-26.0) Arterial Blood Oxygen Saturation 98.6 % (92.0-98.0) Arterial Blood Base Excess -2.3 Neil Test Positive Test 04/05/17 12:05 04/05/17 20:30 04/06/17 04:00 04/06/17 13:05 Activated Partial Thromboplast Time > 150 SEC (23-33) 57 SEC (23-33) 178 SEC (23-33) 47 SEC (23-33) White Blood Count 5.4 K/UL (4.8-10.8) 5.6 K/UL (4.8-10.8) Red Blood Count 2.08 M/UL (4.20-5.40) 2.32 M/UL (4.20-5.40) Hemoglobin 7.4 G/DL (12.0-16.0) 8.1 G/DL (12.0-16.0) Hematocrit 23.0 % (37.0-47.0) 24.8 % (37.0-47.0) Mean Corpuscular Volume 110 FL (80-99) 107 FL (80-99) Mean Corpuscular Hemoglobin 35.7 PG (27.0-31.0) 35.0 PG (27.0-31.0) Mean Corpuscular Hemoglobin Concent 32.4 G/DL (32.0-36.0) 32.8 G/DL (32.0-36.0) Red Cell Distribution Width 14.1 % (11.6-14.8) 13.9 % (11.6-14.8) Platelet Count 102 K/UL (150-450) 144 K/UL (150-450) Mean Platelet Volume 13.8 FL (6.5-10.1) 12.9 FL (6.5-10.1) Neutrophils (%) (Auto) % (45.0-75.0) 53.1 % (45.0-75.0) Lymphocytes (%) (Auto) % (20.0-45.0) 35.7 % (20.0-45.0) Monocytes (%) (Auto) % (1.0-10.0) 7.9 % (1.0-10.0) Eosinophils (%) (Auto) % (0.0-3.0) 2.3 % (0.0-3.0) Basophils (%) (Auto) % (0.0-2.0) 0.9 % (0.0-2.0) Differential Total Cells Counted 100 Neutrophils % (Manual) 60 % (45-75) Lymphocytes % (Manual) 26 % (20-45) Monocytes % (Manual) 9 % (1-10) Eosinophils % (Manual) 5 % (0-3) Basophils % (Manual) 0 % (0-2) Band Neutrophils 0 % (0-8) Platelet Estimate Decreased Platelet Morphology Normal Hypochromasia 1+ Anisocytosis 1+ Macrocytosis 1+ Sodium Level 151 mEQ/L (135-145) Potassium Level 4.0 mEQ/L (3.4-4.9) Chloride Level 113 mEQ/L (98-107) Carbon Dioxide Level 24 mEQ/L (20-30) Anion Gap 14 (5-15) Blood Urea Nitrogen 20 mg/dL (7-23) Creatinine 0.4 mg/dL (0.5-0.9) Estimat Glomerular Filtration Rate mL/min (>60) Glucose Level 86 mg/dL (74-106) Calcium Level 8.3 mg/dL (8.6-10.2) Test 04/06/17 22:30 04/07/17 06:00 Activated Partial Thromboplast Time 105 SEC (23-33) White Blood Count 6.6 K/UL (4.8-10.8) Red Blood Count 2.17 M/UL (4.20-5.40) Hemoglobin 7.9 G/DL (12.0-16.0) Hematocrit 23.4 % (37.0-47.0) Mean Corpuscular Volume 108 FL (80-99) Mean Corpuscular Hemoglobin 36.7 PG (27.0-31.0) Mean Corpuscular Hemoglobin Concent 34.0 G/DL (32.0-36.0) Red Cell Distribution Width 14.0 % (11.6-14.8) Platelet Count 177 K/UL (150-450) Mean Platelet Volume 11.8 FL (6.5-10.1) Neutrophils (%) (Auto) % (45.0-75.0) Lymphocytes (%) (Auto) % (20.0-45.0) Monocytes (%) (Auto) % (1.0-10.0) Eosinophils (%) (Auto) % (0.0-3.0) Basophils (%) (Auto) % (0.0-2.0) Objective: GENERAL: The patient is a well-developed female, intubated HEENT: Negative. sluggish pupils NECK: Supple. no JVD LUNGS: Moderate breath sounds. no rhonchi noted. no wheeze; symmetric; no change CARDIAC: S1 and S2. Regular rate and rhythm.without MRG ABDOMEN: Soft and nontender. The patient has a G-tube in place . no HSM Extremities: No cyanosis or clubbing. noted contractures. Quadriparesis. withdrawn skin noted reviewed and edited Accucheck: 195 SANCHEZ NAVARRETE Apr 07, 2017 06:47
[2017-04-07] MEDS ORDERED: Heparin 5000 units/ml inj IV ONE (08:00)
[2017-04-07] MEDS ORDERED: Heparin 25,000 units/D5W 500ml (ACS/MI) IV SCH ×2 (08:00→17:17)
--- NOTE | 2017-04-07 08:21 | General Progress Note ---
Assessment/Plan Problem List: (1) Seizure disorder ICD Codes: G40.909 - Epilepsy, unspecified, not intractable, without status epilepticus SNOMED: 094021890 (2) ARF (acute renal failure) ICD Codes: N17.9 - Acute kidney failure, unspecified SNOMED: 35753945 Qualifiers: Qualified Codes: N17.9 - Acute kidney failure, unspecified (3) UTI (urinary tract infection) ICD Codes: N39.0 - Urinary tract infection, site not specified SNOMED: 40789127, 45132264 Qualifiers: Qualified Codes: N39.0 - Urinary tract infection, site not specified (4) Pneumonia ICD Codes: J18.9 - Pneumonia, unspecified organism SNOMED: 301924054, 32246528 Qualifiers: Qualified Codes: J18.1 - Lobar pneumonia, unspecified organism (5) Septic shock ICD Codes: A41.9 - Sepsis, unspecified organism; R65.21 - Severe sepsis with septic shock SNOMED: 55952203 (6) Hypoxia ICD Codes: R09.02 - Hypoxemia; R65.21 - Severe sepsis with septic shock SNOMED: 500430622, 44875370 (7) Altered level of consciousness ICD Codes: R40.4 - Transient alteration of awareness SNOMED: 2608835 Status: stable, progressing Assessment/Plan amiodarone dcd due to long pauses. defer to cards restarting ivf adjusted- hypotonic iv abx vent support resp rx monitor abg wean per pulm follow up cultures and pending labs heparin drip- monitor h/h and plts. may have to dc if plts continue to drop check stool ob will consider NOAC if stool ob negative may need ivc filter feeds cont sz rx picc today repeat cbc may need transfusion- will repeat h/h tomorrow critical and guarded Subjective ROS Limited/Unobtainable: No Constitutional: Reports: malaise, weakness HEENT: Reports: no symptoms Cardiovascular: Reports: irregular heart rate, other - bradycardia, pauses- none last night Respiratory: Reports: cough, shortness of breath Gastrointestinal/Abdominal: Reports: no symptoms Genitourinary: Reports: no symptoms Neurologic/Psychiatric: Reports: pre-existing deficit Endocrine: Reports: no symptoms Hematologic/Lymphatic: Reports: no symptoms Allergies: Coded Allergies: CEFTRIAXONE (Verified Allergy, Unknown, 03/31/17) PENICILLINS (Verified Allergy, Unknown, 03/31/17) SULFA (SULFONAMIDE ANTIBIOTICS) (Verified Allergy, Unknown, 03/31/17) TAZOBACTAM (Verified Allergy, Unknown, 03/31/17) All Systems: reviewed and negative except above Subjective on the vent. no overnight events. no fever or chills. tolerating feeds. no pauses. Objective Last 24 Hour Vital Signs Date Time Temp Pulse Resp B/P Pulse Ox O2 Delivery O2 Flow Rate FiO2 04/07/17 07:00 71 15 108/44 100 Mechanical Ventilator 30 04/07/17 06:35 78 18 30 04/07/17 06:00 80 20 113/46 98 Mechanical Ventilator 30 04/07/17 05:08 80 16 30 04/07/17 05:00 76 18 110/48 98 Mechanical Ventilator 30 04/07/17 04:00 98.8 80 17 107/40 98 Mechanical Ventilator 30 04/07/17 04:00 30 04/07/17 04:00 80 04/07/17 03:01 69 17 30 04/07/17 03:00 76 19 112/45 98 Mechanical Ventilator 30 04/07/17 02:00 80 18 98/40 98 Mechanical Ventilator 30 04/07/17 01:11 81 19 30 04/07/17 01:00 79 17 99/38 98 Mechanical Ventilator 30 04/07/17 00:00 80 04/07/17 00:00 40 04/07/17 00:00 98.7 80 17 109/54 96 Mechanical Ventilator 30 04/06/17 23:18 74 19 30 04/06/17 23:00 83 23 101/39 98 Mechanical Ventilator 30 04/06/17 22:00 77 21 113/43 97 Mechanical Ventilator 30 04/06/17 21:16 79 17 97 Mechanical Ventilator 30 04/06/17 21:06 30 04/06/17 21:05 81 16 96 Mechanical Ventilator 30 04/06/17 21:04 81 16 30 04/06/17 21:00 82 24 86/38 96 Mechanical Ventilator 30 04/06/17 20:00 99.2 83 24 84/39 96 Mechanical Ventilator 30 04/06/17 20:00 40 04/06/17 20:00 83 04/06/17 19:24 85 21 30 04/06/17 19:00 88 22 83/34 97 Mechanical Ventilator 30 04/06/17 18:11 100.3 04/06/17 18:00 93 23 84/39 98 Mechanical Ventilator 30 04/06/17 17:20 95 24 40 04/06/17 17:00 97 21 89/39 97 Mechanical Ventilator 30 04/06/17 16:00 40 04/06/17 16:00 90 04/06/17 16:00 100.8 90 22 104/47 99 Mechanical Ventilator 30 04/06/17 15:22 89 18 40 04/06/17 15:00 90 22 88/37 99 Mechanical Ventilator 30 04/06/17 14:00 90 23 88/38 99 Mechanical Ventilator 30 04/06/17 13:25 90 22 40 04/06/17 13:00 94 22 97/41 99 Mechanical Ventilator 30 04/06/17 12:00 40 04/06/17 12:00 99.8 92 22 95/41 99 Mechanical Ventilator 30 04/06/17 12:00 92 04/06/17 11:20 92 17 40 04/06/17 11:00 92 18 110/44 95 Mechanical Ventilator 30 04/06/17 10:00 91 20 109/51 98 Mechanical Ventilator 30 04/06/17 09:52 30 04/06/17 09:52 93 14 98 Mechanical Ventilator 30 04/06/17 09:51 93 16 97 Mechanical Ventilator 30 04/06/17 09:20 88 14 40 04/06/17 09:00 89 22 100/47 100 Mechanical Ventilator 30 Intake and Output 04/06/17 04/07/17 19:00 07:00 Intake Total 934.24 ml 1983.1 ml Output Total 1735 ml 540 ml Balance -800.76 ml 1443.1 ml Intake Free Water 150 ml IV Total 274.24 ml 1173.1 ml Tube Feeding 660 ml 660 ml Output Urine Total 1735 ml 540 ml # Bowel Movements 3 1 Laboratory Tests 04/06/17 13:05: White Blood Count 5.6, Red Blood Count 2.32L, Hemoglobin 8.1L, Hematocrit 24.8L , Mean Corpuscular Volume 107H, Mean Corpuscular Hemoglobin 35.0H, Mean Corpuscular Hemoglobin Concent 32.8, Red Cell Distribution Width 13.9, Platelet Count 144L, Mean Platelet Volume 12.9H, Neutrophils (%) (Auto) 53.1, Lymphocytes (%) (Auto) 35.7, Monocytes (%) (Auto) 7.9, Eosinophils (%) (Auto) 2.3, Basophils (%) (Auto) 0.9, Activated Partial Thromboplast Time 47H 04/06/17 22:30: Activated Partial Thromboplast Time 105H 04/07/17 06:00: White Blood Count 6.6, Red Blood Count 2.17L, Hemoglobin 7.9L, Hematocrit 23.4L , Mean Corpuscular Volume 108H, Mean Corpuscular Hemoglobin 36.7H, Mean Corpuscular Hemoglobin Concent 34.0, Red Cell Distribution Width 14.0, Platelet Count 177, Mean Platelet Volume 11.8H, Neutrophils (%) (Auto) , Lymphocytes (%) (Auto) , Monocytes (%) (Auto) , Eosinophils (%) (Auto) , Basophils (%) (Auto) , Activated Partial Thromboplast Time 61H, Neutrophils % (Manual) [Pending], Lymphocytes % (Manual) [Pending], Platelet Estimate [Pending], Platelet Morphology [Pending], Sodium Level 144, Potassium Level 3.5, Chloride Level 105 , Carbon Dioxide Level 26, Anion Gap 13, Blood Urea Nitrogen 14, Creatinine 0.4L , Estimat Glomerular Filtration Rate , Glucose Level 97, Calcium Level 7.9L, Total Bilirubin < 0.2, Aspartate Amino Transf (AST/SGOT) 19, Alanine Aminotransferase (ALT/SGPT) 7, Alkaline Phosphatase 73, Total Protein 5.2L, Albumin 1.9L, Globulin 3.3, Albumin/Globulin Ratio 0.5L Height (Feet): 5 Height (Inches): 3.00 Weight (Pounds): 229 Objective General Appearance: WD/WN, confused Neck: supple Cardiovascular: normal rate, regular rhythm Respiratory/Chest: chest wall non-tender, no respiratory distress, no accessory muscle use, rhonchi - bilaterally Abdomen: normal bowel sounds, non tender, soft, no organomegaly Edema: no edema noted Arm (L), no edema noted Arm (R), no edema noted Leg (L), no edema noted Leg (R), no edema noted Pedal (L), no edema noted Pedal (R), no edema noted Generalized Neurologic: disoriented BREANNE SORIA Apr 07, 2017 08:21
[2017-04-07] MEDS: Valproic Acid 250mg/5ml Liquid GT SCH ×2 (08:22→20:43)
[2017-04-07] MEDS: Ascorbic Acid 500mg tab GT SCH ×2 (08:22→17:33)
[2017-04-07] MEDS: Lacosamide 50mg tablet ORAL SCH ×2 (08:23→20:43)
[2017-04-07] MEDS: Dyna-Hex 2% Top Sol 8oz TOPIC SCH (08:23)
[2017-04-07 08:57] LABS: BAND NEUTROPHILS % (MANUAL) 1 % (0-8); BASOPHILS % (MANUAL) 0 % (0-2); EOSINOPHILS % (MANUAL) 0 % (0-3); LYMPHOCYTES % (MANUAL) 32 % (20-45); NEUTROPHILS % (MANUAL) 54 % (45-75); NUCLEATED RED BLOOD CELLS 3 /100 WBC; PLATELET ESTIMATE ADEQUATE; TOTAL CELLS COUNTED 100
[2017-04-07 08:58] LABS: HYPOCHROMASIA 3+; MACROCYTES 1+; PLATELET MORPHOLOGY NORMAL
[2017-04-07] MEDS ORDERED: KCl 10% 40mEq/30ml liquid NG ONE (09:00)
[2017-04-07] MEDS: Amikacin for Inhalation 2ML INH SCH ×2 (09:49→20:55)
--- NOTE | 2017-04-07 10:55 | Pre-Procedure Note/Attestation ---
Pre-Procedure Note/Attestation Complete Prior to Procedure Planned Procedure: not applicable Procedure Narrative: Peripherally Inserted Central Catheter Indications for Procedure Pre-Operative Diagnosis: needs intermodal customer service IV access Attestation I attest that I discussed the nature of the procedure; its benefits; risks and complications; and alternatives (and the risks and benefits of such alternatives ), prior to the procedure, with the patient (or the patient's legal farm loan representative). I attest that, if there was a reasonable possibility of needing a blood transfusion, the patient (or the patient's legal farm loan representative) was given the [facility] standardized written summary, pursuant to the Alessio Guadal[employer] Guerra Blood Safety Act ([place] Health and Safety Code # 1645, as amended). I attest that I re-evaluated the patient just prior to the surgery and that there has been no change in the patient's H&P, except as documented below: Discussed by phone with pt's guardian Dr. Nino Trejo at 1050 JACOB MORGAN M.D. Apr 07, 2017 10:55
--- NOTE | 2017-04-07 10:56 | Infectious Diseases Prog Note ---
"Assessment/Plan Assessment/Plan antibiotics : aztreonam, inhaled amikacin A 1. protues | e.coli UTI s/p rx 2. pseudomonas pneumonia 3. respiratory failure 4. multiple sclerosis 5. seizure disorder P 1. continue inhaled amikacin 2. d/c aztreonam 3. will follow up cultures Subjective ROS Limited/Unobtainable: Yes Allergies: Coded Allergies: CEFTRIAXONE (Verified Allergy, Unknown, 03/31/17) PENICILLINS (Verified Allergy, Unknown, 03/31/17) SULFA (SULFONAMIDE ANTIBIOTICS) (Verified Allergy, Unknown, 03/31/17) TAZOBACTAM (Verified Allergy, Unknown, 03/31/17) Objective Vital Signs Last 24 Hour Vital Signs Date Time Temp Pulse Resp B/P Pulse Ox O2 Delivery O2 Flow Rate FiO2 04/07/17 10:38 30 04/07/17 10:30 85 22 30 04/07/17 10:00 87 16 105/50 99 Mechanical Ventilator 30 04/07/17 09:55 73 19 93 Mechanical Ventilator 30 04/07/17 09:53 30 04/07/17 09:50 77 23 97 Mechanical Ventilator 30 04/07/17 09:00 70 14 99/45 100 Mechanical Ventilator 30 04/07/17 09:00 70 04/07/17 08:59 30 04/07/17 08:36 70 14 30 04/07/17 08:34 100 04/07/17 08:00 30 04/07/17 08:00 98.4 70 13 106/46 100 Mechanical Ventilator 30 04/07/17 07:00 71 15 108/44 100 Mechanical Ventilator 30 04/07/17 06:35 78 18 30 04/07/17 06:00 80 20 113/46 98 Mechanical Ventilator 30 04/07/17 05:08 80 16 30 04/07/17 05:00 76 18 110/48 98 Mechanical Ventilator 30 04/07/17 04:00 98.8 80 17 107/40 98 Mechanical Ventilator 30 04/07/17 04:00 30 04/07/17 04:00 80 04/07/17 03:01 69 17 30 04/07/17 03:00 76 19 112/45 98 Mechanical Ventilator 30 04/07/17 02:00 80 18 98/40 98 Mechanical Ventilator 30 04/07/17 01:11 81 19 30 04/07/17 01:00 79 17 99/38 98 Mechanical Ventilator 30 04/07/17 00:00 80 04/07/17 00:00 40 04/07/17 00:00 98.7 80 17 109/54 96 Mechanical Ventilator 30 04/06/17 23:18 74 19 30 04/06/17 23:00 83 23 101/39 98 Mechanical Ventilator 30 04/06/17 22:00 77 21 113/43 97 Mechanical Ventilator 30 04/06/17 21:16 79 17 97 Mechanical Ventilator 30 04/06/17 21:06 30 04/06/17 21:05 81 16 96 Mechanical Ventilator 30 04/06/17 21:04 81 16 30 04/06/17 21:00 82 24 86/38 96 Mechanical Ventilator 30 04/06/17 20:00 99.2 83 24 84/39 96 Mechanical Ventilator 30 04/06/17 20:00 40 04/06/17 20:00 83 04/06/17 19:24 85 21 30 04/06/17 19:00 88 22 83/34 97 Mechanical Ventilator 30 04/06/17 18:11 100.3 04/06/17 18:00 93 23 84/39 98 Mechanical Ventilator 30 04/06/17 17:20 95 24 40 04/06/17 17:00 97 21 89/39 97 Mechanical Ventilator 30 04/06/17 16:00 40 04/06/17 16:00 90 04/06/17 16:00 100.8 90 22 104/47 99 Mechanical Ventilator 30 04/06/17 15:22 89 18 40 04/06/17 15:00 90 22 88/37 99 Mechanical Ventilator 30 04/06/17 14:00 90 23 88/38 99 Mechanical Ventilator 30 04/06/17 13:25 90 22 40 04/06/17 13:00 94 22 97/41 99 Mechanical Ventilator 30 04/06/17 12:00 40 04/06/17 12:00 99.8 92 22 95/41 99 Mechanical Ventilator 30 04/06/17 12:00 92 04/06/17 11:20 92 17 40 04/06/17 11:00 92 18 110/44 95 Mechanical Ventilator 30 Height (Feet): 5 Height (Inches): 3.00 Weight (Pounds): 229 HEENT: other - intubated Respiratory/Chest: lungs clear Cardiovascular: normal rate, regular rhythm, no gallop/murmur Abdomen: soft, non tender Extremities: no edema Laboratory Tests Test 04/06/17 13:05 04/06/17 22:30 04/07/17 06:00 White Blood Count 5.6 K/UL (4.8-10.8) 6.6 K/UL (4.8-10.8) Red Blood Count 2.32 M/UL (4.20-5.40) L 2.17 M/UL (4.20-5.40) L Hemoglobin 8.1 G/DL (12.0-16.0) L 7.9 G/DL (12.0-16.0) L Hematocrit 24.8 % (37.0-47.0) L 23.4 % (37.0-47.0) L Mean Corpuscular Volume 107 FL (80-99) H 108 FL (80-99) H Mean Corpuscular Hemoglobin 35.0 PG (27.0-31.0) H 36.7 PG (27.0-31.0) H Mean Corpuscular Hemoglobin Concent 32.8 G/DL (32.0-36.0) 34.0 G/DL (32.0-36.0) Red Cell Distribution Width 13.9 % (11.6-14.8) 14.0 % (11.6-14.8) Platelet Count 144 K/UL (150-450) L 177 K/UL (150-450) Mean Platelet Volume 12.9 FL (6.5-10.1) H 11.8 FL (6.5-10.1) H Neutrophils (%) (Auto) 53.1 % (45.0-75.0) % (45.0-75.0) Lymphocytes (%) (Auto) 35.7 % (20.0-45.0) % (20.0-45.0) Monocytes (%) (Auto) 7.9 % (1.0-10.0) % (1.0-10.0) Eosinophils (%) (Auto) 2.3 % (0.0-3.0) % (0.0-3.0) Basophils (%) (Auto) 0.9 % (0.0-2.0) % (0.0-2.0) Activated Partial Thromboplast Time 47 SEC (23-33) H 105 SEC (23-33) H 61 SEC (23-33) H Differential Total Cells Counted 100 Neutrophils % (Manual) 54 % (45-75) Lymphocytes % (Manual) 32 % (20-45) Monocytes % (Manual) 13 % (1-10) H Eosinophils % (Manual) 0 % (0-3) Basophils % (Manual) 0 % (0-2) Band Neutrophils 1 % (0-8) Nucleated Red Blood Cells 3 /100 WBC Platelet Estimate Adequate Platelet Morphology Normal Hypochromasia 3+ Macrocytosis 1+ Sodium Level 144 mEQ/L (135-145) Potassium Level 3.5 mEQ/L (3.4-4.9) Chloride Level 105 mEQ/L (98-107) Carbon Dioxide Level 26 mEQ/L (20-30) Anion Gap 13 (5-15) Blood Urea Nitrogen 14 mg/dL (7-23) Creatinine 0.4 mg/dL (0.5-0.9) L Estimat Glomerular Filtration Rate mL/min (>60) Glucose Level 97 mg/dL (74-106) Calcium Level 7.9 mg/dL (8.6-10.2) L Total Bilirubin < 0.2 mg/dL (0.0-1.2) Aspartate Amino Transf (AST/SGOT) 19 U/L (5-40) Alanine Aminotransferase (ALT/SGPT) 7 U/L (3-33) Alkaline Phosphatase 73 U/L (35-104) Total Protein 5.2 g/dL (6.6-8.7) L Albumin 1.9 g/dL (3.5-5.2) L Globulin 3.3 g/dL Albumin/Globulin Ratio 0.5 (1.0-2.7) L KAMRAN GUTIERREZ Apr 07, 2017 10:56"
[2017-04-07] MEDS ORDERED: Heparin 2000 units/Ns 1000ml IV ONE (11:00)
--- NOTE | 2017-04-07 12:10 | Radiology PICC Progress Note ---
Radiology PICC Progress Note Consent Obtained: yes Upper Extremity: right Vein: cephalic Complications: none JACOB MORGAN M.D. Apr 07, 2017 12:10
--- NOTE | 2017-04-07 12:51 | Diagnostic Imaging Report ---
Indications: Needs long-term IV access Technique: Procedure performed at bedside. Procedural timeout performed. Ultrasound confirms patent compressible right basilic vein. Total sterile technique, including sterile probe cover and sterile gel, sterile gloves, hand hygiene, hat, mask,, sterile gown, large sterile drape, and preparation with 2% chlorhexidine utilized. Initially, an attempt made at accessing the basilic vein, but wire would not pass centrally. Therefore, the cephalic vein was subsequently successfully punctured Local anesthesia with 1% lidocaine. Under real-time ultrasound guidance, puncture cephalic vein using 21-gauge needle, passage 0.018 guidewire, exchange for 5 Angolan peel-away sheath. 5 [place] Bard dual-lumen power PICC cut to 40 to cm. It was inserted through the peel-away sheath. Peel-away sheath and guidewire removed. Catheter fixed to the skin. Both catheter ports aspirated and flushed. Patient tolerated procedure well, without immediate complication. Followup chest x-ray obtained, documents catheter tip position at the cavoatrial junction Impression: Successful bedside placement of right arm PICC under sonographic guidance, as described above.
[2017-04-07] MEDS ORDERED: Atropine Sulfate 1mg Inj IVP PRN (14:00)
--- NOTE | 2017-04-07 21:45 | Cardiac Electrophysiology PN ---
Assessment/Plan Problem List: (1) ARF (acute renal failure) (2) UTI (urinary tract infection) (3) Pneumonia (4) Septic shock (5) Wide-complex tachycardia (6) Paroxysmal atrial fibrillation with rapid ventricular response Status: stable, not improved, unchanged Status Narrative Mrs. Reynaga is maintaining sinus rhythm She continues w/ sinus pauses, but of shorter duration, appx 2 seconds. amiodarone has been dc d Assessment/Plan Pt to remain off amiodarone unless develops rapid AF. No anticoagulation due to comorbities. Supportive care - vent, TF, antibiotics per primary MD Subjective ROS Limited/Unobtainable: Yes Subjective Intubated, minimally responsive Objective Last 24 Hour Vital Signs Date Time Temp Pulse Resp B/P Pulse Ox O2 Delivery O2 Flow Rate FiO2 04/07/17 21:07 83 16 100 Mechanical Ventilator 30 04/07/17 20:58 83 20 100 Mechanical Ventilator 30 04/07/17 20:58 30 04/07/17 20:55 83 20 30 04/07/17 20:01 30 04/07/17 20:00 83 20 101/43 100 Mechanical Ventilator 30 04/07/17 20:00 83 04/07/17 19:27 83 18 30 04/07/17 19:00 98.4 80 18 100/42 100 Mechanical Ventilator 30 04/07/17 18:00 66 20 92/38 100 Mechanical Ventilator 30 04/07/17 17:33 109/44 04/07/17 17:11 80 19 30 04/07/17 17:00 82 18 104/46 100 Mechanical Ventilator 30 04/07/17 16:00 74 04/07/17 16:00 30 04/07/17 16:00 98.6 82 19 109/44 100 Mechanical Ventilator 30 04/07/17 15:13 82 20 30 04/07/17 15:00 86 22 98/49 100 Mechanical Ventilator 30 04/07/17 14:00 84 19 109/47 100 Mechanical Ventilator 30 04/07/17 13:00 74 20 96/40 100 Mechanical Ventilator 30 04/07/17 12:35 76 18 30 04/07/17 12:29 76 18 30 04/07/17 12:00 98.3 78 19 98/84 100 Mechanical Ventilator 30 04/07/17 12:00 78 04/07/17 11:00 80 18 103/46 100 Mechanical Ventilator 30 04/07/17 10:38 30 04/07/17 10:30 85 22 30 04/07/17 10:00 87 16 105/50 99 Mechanical Ventilator 30 04/07/17 09:55 73 19 93 Mechanical Ventilator 30 04/07/17 09:53 30 04/07/17 09:50 77 23 97 Mechanical Ventilator 30 04/07/17 09:00 70 14 99/45 100 Mechanical Ventilator 30 04/07/17 09:00 70 04/07/17 08:59 30 04/07/17 08:36 70 14 30 04/07/17 08:34 100 04/07/17 08:00 30 04/07/17 08:00 98.4 70 13 106/46 100 Mechanical Ventilator 30 04/07/17 07:00 71 15 108/44 100 Mechanical Ventilator 30 04/07/17 06:35 78 18 30 04/07/17 06:00 80 20 113/46 98 Mechanical Ventilator 30 04/07/17 05:08 80 16 30 04/07/17 05:00 76 18 110/48 98 Mechanical Ventilator 30 04/07/17 04:00 98.8 80 17 107/40 98 Mechanical Ventilator 30 04/07/17 04:00 30 04/07/17 04:00 80 04/07/17 03:01 69 17 30 04/07/17 03:00 76 19 112/45 98 Mechanical Ventilator 30 04/07/17 02:00 80 18 98/40 98 Mechanical Ventilator 30 04/07/17 01:11 81 19 30 04/07/17 01:00 79 17 99/38 98 Mechanical Ventilator 30 04/07/17 00:00 80 04/07/17 00:00 40 04/07/17 00:00 98.7 80 17 109/54 96 Mechanical Ventilator 30 04/06/17 23:18 74 19 30 04/06/17 23:00 83 23 101/39 98 Mechanical Ventilator 30 04/06/17 22:00 77 21 113/43 97 Mechanical Ventilator 30 General Appearance: WD/WN, on vent EENT: PERRL/EOMI, other - et tube in place Neck: supple, no JVD Rhythm: NSR Cardiovascular: normal rate, no gallop/murmur Respiratory/Chest: other - scattered rhonchi anteriorly Abdomen: non tender, soft, other - + g tube Extremities: other - contractures of upper extremities Intake and Output 04/06/17 04/07/17 19:00 07:00 Intake Total 934.24 ml 1983.1 ml Output Total 1735 ml 540 ml Balance -800.76 ml 1443.1 ml Intake Free Water 150 ml IV Total 274.24 ml 1173.1 ml Tube Feeding 660 ml 660 ml Output Urine Total 1735 ml 540 ml # Bowel Movements 3 1 Laboratory Tests Test 04/06/17 22:30 04/07/17 06:00 04/07/17 14:00 Activated Partial Thromboplast Time 105 SEC (23-33) H 61 SEC (23-33) H 149 SEC (23-33) H White Blood Count 6.6 K/UL (4.8-10.8) Red Blood Count 2.17 M/UL (4.20-5.40) L Hemoglobin 7.9 G/DL (12.0-16.0) L Hematocrit 23.4 % (37.0-47.0) L Mean Corpuscular Volume 108 FL (80-99) H Mean Corpuscular Hemoglobin 36.7 PG (27.0-31.0) H Mean Corpuscular Hemoglobin Concent 34.0 G/DL (32.0-36.0) Red Cell Distribution Width 14.0 % (11.6-14.8) Platelet Count 177 K/UL (150-450) Mean Platelet Volume 11.8 FL (6.5-10.1) H Neutrophils (%) (Auto) % (45.0-75.0) Lymphocytes (%) (Auto) % (20.0-45.0) Monocytes (%) (Auto) % (1.0-10.0) Eosinophils (%) (Auto) % (0.0-3.0) Basophils (%) (Auto) % (0.0-2.0) Differential Total Cells Counted 100 Neutrophils % (Manual) 54 % (45-75) Lymphocytes % (Manual) 32 % (20-45) Monocytes % (Manual) 13 % (1-10) H Eosinophils % (Manual) 0 % (0-3) Basophils % (Manual) 0 % (0-2) Band Neutrophils 1 % (0-8) Nucleated Red Blood Cells 3 /100 WBC Platelet Estimate Adequate Platelet Morphology Normal Hypochromasia 3+ Macrocytosis 1+ Sodium Level 144 mEQ/L (135-145) Potassium Level 3.5 mEQ/L (3.4-4.9) Chloride Level 105 mEQ/L (98-107) Carbon Dioxide Level 26 mEQ/L (20-30) Anion Gap 13 (5-15) Blood Urea Nitrogen 14 mg/dL (7-23) Creatinine 0.4 mg/dL (0.5-0.9) L Estimat Glomerular Filtration Rate mL/min (>60) Glucose Level 97 mg/dL (74-106) Calcium Level 7.9 mg/dL (8.6-10.2) L Total Bilirubin < 0.2 mg/dL (0.0-1.2) Aspartate Amino Transf (AST/SGOT) 19 U/L (5-40) Alanine Aminotransferase (ALT/SGPT) 7 U/L (3-33) Alkaline Phosphatase 73 U/L (35-104) Total Protein 5.2 g/dL (6.6-8.7) L Albumin 1.9 g/dL (3.5-5.2) L Globulin 3.3 g/dL Albumin/Globulin Ratio 0.5 (1.0-2.7) SIXTO VALVERDE Apr 07, 2017 21:45
[2017-04-08] VITALS (24 sets, daily range): BP systolic 90–130; BP diastolic 37–68
[2017-04-08] MEDS ORDERED: Heparin 5000 units/ml inj IV ONE (01:15)
[2017-04-08] MEDS ORDERED: Heparin 25,000 units/D5W 500ml (ACS/MI) IV SCH (01:15)
--- NOTE | 2017-04-08 03:15 | Progress Note ---
DATE: 04/07/2017 CARDIOLOGY PROGRESS NOTE SUBJECTIVE: The patient is status post PICC line placement today without complication. The patient is off amiodarone since yesterday due to the development of pauses. She is maintaining sinus rhythm. She still has had pauses today, but they are only 2 seconds in duration maximum. SUBJECTIVE: VITAL SIGNS: Blood pressure of 101/43, pulse 83, and respirations 20. RESPIRATORY: Bilateral breath sounds. HEART: Regular rhythm and rate. Normal S1, S2. ABDOMEN: Soft. No edema. LABORATORY DATA: White count 6.6 and hemoglobin 7.9. Potassium 3.5, BUN 14, and creatinine 0.4. IMPRESSION: 1. Paroxysmal atrial fibrillation. 2. Conduction system disease. 3. Borderline hypokalemia. 4. Anemia. 5. Sepsis with shock. 6. Urinary tract infection. 7. Acute on chronic renal failure. 8. Pneumonia. 9. Hypoxemia with respiratory failure. 10. Deep vein thrombosis. PLAN: 1. Recheck laboratories including potassium and magnesium. 2. Consider transfusion if hemoglobin remains below 8 g. 3. Hold amiodarone. 4. Cardiac monitoring. 5. Atropine at bedside. 6. Hypotonic IV fluids. 7. Full anticoagulation, unless active bleeding. 8. Consider IVC filter. 9. Wean as able. She may ultimately need a pacemaker, if there is a need to resume amiodarone for suppression of rapid atrial tachyarrhythmias. Nick Gilbert M.D. DR: ROBYN JOB#: [id number] CC: ANA PAULA
[2017-04-08 07:45] LABS: MEAN CORPUSCULAR HEMOGLOBIN 37.8 PG (27.0-31.0); MEAN CORPUSCULAR HGB CONC 33.8 G/DL (32.0-36.0); MEAN CORPUSCULAR VOLUME 112 FL (80-99); MEAN PLATELET VOLUME 10.9 FL (6.5-10.1); PLATELET COUNT 192 K/UL (150-450); RED BLOOD COUNT 2.17 M/UL (4.20-5.40); RED CELL DISTRIBUTION WIDTH 13.5 % (11.6-14.8); WHITE BLOOD COUNT 6.1 K/UL (4.8-10.8)
[2017-04-08 08:03] LABS: ALANINE AMINOTRANSFERASE 6 U/L (3-33); ALBUMIN/GLOBULIN RATIO 0.5 (1.0-2.7); ANION GAP 10 (5-15); ASPARTATE AMINO TRANSFERASE 20 U/L (5-40); CALCIUM 7.7 mg/dL (8.6-10.2); CARBON DIOXIDE 26 mEQ/L (20-30); CHLORIDE 106 mEQ/L (98-107); CREATININE 0.3 mg/dL (0.5-0.9); HEMOLYSIS 5; MAGNESIUM 1.5 mg/dL (1.7-2.5); SODIUM 142 mEQ/L (135-145); TOTAL PROTEIN 5.1 g/dL (6.6-8.7)
[2017-04-08] MEDS: Lacosamide 50mg tablet ORAL SCH ×2 (09:08→20:56)
[2017-04-08] MEDS: Ascorbic Acid 500mg tab GT SCH ×2 (09:08→18:00)
[2017-04-08] MEDS: Valproic Acid 250mg/5ml Liquid GT SCH ×2 (09:08→20:56)
[2017-04-08] MEDS: Dyna-Hex 2% Top Sol 8oz TOPIC SCH (09:17)
[2017-04-08] MEDS: Amikacin for Inhalation 2ML INH SCH ×2 (09:20→21:24)
--- NOTE | 2017-04-08 09:37 | Infectious Diseases Prog Note ---
Assessment/Plan Assessment/Plan A 1. UTI s/p Rx 2. pneumonia with pseudomonas 3. respiratory failure 4. multiple sclerosis 5. seizure disorder P; Continue Amikacin inhaler Subjective ROS Limited/Unobtainable: Yes Allergies: Coded Allergies: CEFTRIAXONE (Verified Allergy, Unknown, 03/31/17) PENICILLINS (Verified Allergy, Unknown, 03/31/17) SULFA (SULFONAMIDE ANTIBIOTICS) (Verified Allergy, Unknown, 03/31/17) TAZOBACTAM (Verified Allergy, Unknown, 03/31/17) Objective Vital Signs Last 24 Hour Vital Signs Date Time Temp Pulse Resp B/P Pulse Ox O2 Delivery O2 Flow Rate FiO2 04/08/17 09:21 30 04/08/17 09:21 84 20 100 Mechanical Ventilator 30 04/08/17 09:15 81 22 30 04/08/17 09:14 96 04/08/17 07:30 82 17 30 04/08/17 07:00 85 17 108/41 100 Mechanical Ventilator 30 04/08/17 06:00 76 17 99/52 99 Mechanical Ventilator 30 04/08/17 05:27 84 19 30 04/08/17 05:00 85 21 101/44 100 Mechanical Ventilator 30 04/08/17 04:00 84 04/08/17 04:00 30 04/08/17 04:00 98.7 89 19 104/48 100 Mechanical Ventilator 30 04/08/17 03:25 87 20 30 04/08/17 03:00 88 21 124/46 100 Mechanical Ventilator 30 04/08/17 02:00 89 19 115/41 98 Mechanical Ventilator 30 04/08/17 01:28 87 23 30 04/08/17 01:00 85 20 122/46 98 Mechanical Ventilator 30 04/08/17 00:00 82 04/08/17 00:00 30 04/08/17 00:00 98.6 82 18 103/44 100 Mechanical Ventilator 30 04/07/17 23:00 73 20 92/42 100 Mechanical Ventilator 30 04/07/17 22:58 73 20 30 04/07/17 22:00 83 20 123/44 99 Mechanical Ventilator 30 04/07/17 21:07 83 16 100 Mechanical Ventilator 30 04/07/17 21:00 80 21 110/46 100 Mechanical Ventilator 30 04/07/17 20:58 83 20 100 Mechanical Ventilator 30 6/21/17 20:58 30 04/07/17 20:55 83 20 30 04/07/17 20:01 30 04/07/17 20:00 83 20 101/43 100 Mechanical Ventilator 30 04/07/17 20:00 83 04/07/17 19:27 83 18 30 04/07/17 19:00 98.4 80 18 100/42 100 Mechanical Ventilator 30 04/07/17 18:00 66 20 92/38 100 Mechanical Ventilator 30 04/07/17 17:33 109/44 04/07/17 17:11 80 19 30 04/07/17 17:00 82 18 104/46 100 Mechanical Ventilator 30 04/07/17 16:00 74 04/07/17 16:00 30 04/07/17 16:00 98.6 82 19 109/44 100 Mechanical Ventilator 30 04/07/17 15:13 82 20 30 04/07/17 15:00 86 22 98/49 100 Mechanical Ventilator 30 04/07/17 14:00 84 19 109/47 100 Mechanical Ventilator 30 04/07/17 13:00 74 20 96/40 100 Mechanical Ventilator 30 04/07/17 12:35 76 18 30 04/07/17 12:29 76 18 30 04/07/17 12:00 98.3 78 19 98/84 100 Mechanical Ventilator 30 04/07/17 12:00 78 04/07/17 11:00 80 18 103/46 100 Mechanical Ventilator 30 04/07/17 10:38 30 04/07/17 10:30 85 22 30 04/07/17 10:00 87 16 105/50 99 Mechanical Ventilator 30 04/07/17 09:55 73 19 93 Mechanical Ventilator 30 04/07/17 09:53 30 04/07/17 09:50 77 23 97 Mechanical Ventilator 30 Height (Feet): 5 Height (Inches): 3.00 Weight (Pounds): 232 General Appearance: no acute distress HEENT: other - orally intubated Respiratory/Chest: rhonchi - bilaterally, other - on ventilator Cardiovascular: normal rate Abdomen: soft, non tender, other - GT feeding Extremities: other - R arm PICC line, edema Neurologic/Psychiatric: other - opens eyes Laboratory Tests Test 04/07/17 14:00 04/07/17 23:20 04/08/17 06:55 Activated Partial Thromboplast Time 149 SEC (23-33) H 60 SEC (23-33) H 103 SEC (23-33) H White Blood Count 6.1 K/UL (4.8-10.8) Red Blood Count 2.17 M/UL (4.20-5.40) L Hemoglobin 8.2 G/DL (12.0-16.0) L Hematocrit 24.3 % (37.0-47.0) L Mean Corpuscular Volume 112 FL (80-99) H Mean Corpuscular Hemoglobin 37.8 PG (27.0-31.0) H Mean Corpuscular Hemoglobin Concent 33.8 G/DL (32.0-36.0) Red Cell Distribution Width 13.5 % (11.6-14.8) Platelet Count 192 K/UL (150-450) Mean Platelet Volume 10.9 FL (6.5-10.1) H Neutrophils (%) (Auto) % (45.0-75.0) Lymphocytes (%) (Auto) % (20.0-45.0) Monocytes (%) (Auto) % (1.0-10.0) Eosinophils (%) (Auto) % (0.0-3.0) Basophils (%) (Auto) % (0.0-2.0) Neutrophils % (Manual) Pending Lymphocytes % (Manual) Pending Platelet Estimate Pending Platelet Morphology Pending Sodium Level 142 mEQ/L (135-145) Potassium Level 4.0 mEQ/L (3.4-4.9) Chloride Level 106 mEQ/L (98-107) Carbon Dioxide Level 26 mEQ/L (20-30) Anion Gap 10 (5-15) Blood Urea Nitrogen 10 mg/dL (7-23) Creatinine 0.3 mg/dL (0.5-0.9) L Estimat Glomerular Filtration Rate mL/min (>60) Glucose Level 90 mg/dL (74-106) Calcium Level 7.7 mg/dL (8.6-10.2) L Magnesium Level 1.5 mg/dL (1.7-2.5) L Total Bilirubin < 0.2 mg/dL (0.0-1.2) Aspartate Amino Transf (AST/SGOT) 20 U/L (5-40) Alanine Aminotransferase (ALT/SGPT) 6 U/L (3-33) Alkaline Phosphatase 71 U/L (35-104) Total Protein 5.1 g/dL (6.6-8.7) L Albumin 1.9 g/dL (3.5-5.2) L Globulin 3.2 g/dL Albumin/Globulin Ratio 0.5 (1.0-2.7) L Current Medications Medications (Trade) Dose Ordered Sig/Reji Route PRN Reason Start Time Stop Time Status Last Admin Dose Admin Acetaminophen (Tylenol) 650 mg Q4H PRN ORAL Mild Pain/Temp > 100.5 04/03/17 14:46 04/30/17 16:14 04/06/17 17:41 Amikacin Sulfate (Amikin) 500 mg Q12HR@10,22 INH 04/04/17 10:00 04/11/17 09:59 04/08/17 09:20 Ascorbic Acid (Vitamin C) 500 mg TWICE A DAY GT 04/03/17 09:00 05/03/17 08:59 04/08/17 09:08 Atropine Sulfate 1 mg 1 mg DAILYPRN PRN IVP if HR less than 40 04/07/17 14:00 05/07/17 13:59 Chlorhexidine Gluconate (Sheela-Hex 2%) 1 applic DAILY TOPIC 04/01/17 09:00 05/01/17 08:59 04/08/17 09:17 Furosemide 40 mg 40 mg DAILY IV 04/05/17 09:00 05/05/17 08:59 04/07/17 08:22 Heparin Sodium/ Dextrose (Heparin) 500 ml @ 23.386 mls/ hr Q24H IV 04/08/17 01:15 05/08/17 01:14 04/08/17 01:37 Lacosamide (Vimpat) 50 mg Q12HR ORAL 03/31/17 21:00 04/30/17 20:59 04/08/17 09:08 Lansoprazole (Prevacid) 30 mg DAILY GT 04/02/17 10:30 05/02/17 10:29 04/08/17 09:08 Levothyroxine Sodium 50 mcg 50 mcg ACBREAKFAST GT 04/01/17 06:30 05/01/17 06:29 04/08/17 06:57 Norepinephrine Bitartrate/ Dextrose (Levophed/D5W) 250 ml @ 0 mls/hr Q24H IV 03/31/17 18:30 04/30/17 18:29 04/04/17 17:00 Sodium Chloride (0.45% NS 1000ml) 1,000 ml @ 100 mls/hr Q10H IV 04/07/17 08:00 05/07/17 07:59 04/08/17 01:39 Valproic Acid (Depakene) 1,000 mg Q12HR GT 03/31/17 22:00 04/30/17 21:59 04/08/17 09:08 PARDEEP IRVING Apr 08, 2017 09:37
[2017-04-08 09:52] LABS: BAND NEUTROPHILS % (MANUAL) 0 % (0-8); BASOPHILS % (MANUAL) 0 % (0-2); EOSINOPHILS % (MANUAL) 3 % (0-3); LYMPHOCYTES % (MANUAL) 31 % (20-45); NEUTROPHILS % (MANUAL) 57 % (45-75); NUCLEATED RED BLOOD CELLS 3 /100 WBC; PLATELET ESTIMATE ADEQUATE; PLATELET MORPHOLOGY NORMAL; TOTAL CELLS COUNTED 100
[2017-04-08 09:53] LABS: HYPOCHROMASIA 1+; MACROCYTES 1+; POLYCHROMASIA 2+
[2017-04-08 10:44] LABS: ABG ALLEN TEST POSITIVE; ABG BASE EXCESS 1.5; ABG PCO2 47.2 mmHg (35.0-45.0)
--- NOTE | 2017-04-08 13:33 | Critical Care Progress Note ---
Assessment/Plan Assessment/Plan IMPRESSION: 1. Respiratory failure . 2. Hypoxemia. 3. Evidence of pulmonary infiltrates consistent with pneumonia. 4. Hypotension. 5. Quadriparesis. 6. Bedbound state. 7. deep venous thrombosis. 8. Gastrostomy tube. 9. Known aspiration. 10. UTI 11. diarrhea 12. thrombocytopenia 13. hypernatremia 14. worsening anemia PLAN ventilator noted weaned well; now extubate on second visit cultures noted IV antibiotics anticoagulants as able pressors off monitor hemodynamics monitor oxygen needs ICU care as is for now critical at present hypotonic fluids monitor HH nutrition suction and monitoring for bleeding follow up cultures and adjust antibiotics reviewed ICU management discussed care in detail medications/laboratory data/nursing notes/ICU care reviewed in detail note reviewed and edited care discussed with RN and RT ICU time spent 42 minutes Critical Care - Subjective Interval Events: seen earlier doing well extubated 2nd visit well off vent ROS Limited/Unobtainable: Yes Condition: critical EKG Rhythm: Sinus Rhythm I&O: Intake and Output 04/07/17 04/08/17 19:00 07:00 Intake Total 1913.14 ml 2245.93 ml Output Total 850 ml 540 ml Balance 1063.14 ml 1705.93 ml Intake Free Water 150 ml IV Total 1253.14 ml 1435.93 ml Tube Feeding 660 ml 660 ml Output Urine Total 850 ml 540 ml # Bowel Movements 1 2 Critical Care - Objective ET-Tube: 7.5 ET Position: 20 Last 24 Hour Vital Signs Date Time Temp Pulse Resp B/P Pulse Ox O2 Delivery O2 Flow Rate FiO2 04/08/17 13:00 85 17 98/43 100 Mechanical Ventilator 30 04/08/17 12:00 99.1 75 17 91/40 100 Mechanical Ventilator 30 04/08/17 12:00 73 04/08/17 11:00 75 16 122/47 100 Mechanical Ventilator 30 04/08/17 10:00 76 17 90/37 100 Mechanical Ventilator 30 04/08/17 09:32 84 16 100 Mechanical Ventilator 30 04/08/17 09:21 30 04/08/17 09:21 84 20 100 Mechanical Ventilator 30 04/08/17 09:15 81 22 30 04/08/17 09:14 96 04/08/17 09:00 82 17 100/37 100 Mechanical Ventilator 30 04/08/17 08:00 98.7 81 17 115/45 100 Mechanical Ventilator 30 04/08/17 08:00 89 04/08/17 07:30 82 17 30 04/08/17 07:00 85 17 108/41 100 Mechanical Ventilator 30 04/08/17 06:00 76 17 99/52 99 Mechanical Ventilator 30 04/08/17 05:27 84 19 30 04/08/17 05:00 85 21 101/44 100 Mechanical Ventilator 30 04/08/17 04:00 84 04/08/17 04:00 30 04/08/17 04:00 98.7 89 19 104/48 100 Mechanical Ventilator 30 04/08/17 03:25 87 20 30 04/08/17 03:00 88 21 124/46 100 Mechanical Ventilator 30 04/08/17 02:00 89 19 115/41 98 Mechanical Ventilator 30 04/08/17 01:28 87 23 30 04/08/17 01:00 85 20 122/46 98 Mechanical Ventilator 30 04/08/17 00:00 82 04/08/17 00:00 30 04/08/17 00:00 98.6 82 18 103/44 100 Mechanical Ventilator 30 04/07/17 23:00 73 20 92/42 100 Mechanical Ventilator 30 04/07/17 22:58 73 20 30 04/07/17 22:00 83 20 123/44 99 Mechanical Ventilator 30 04/07/17 21:07 83 16 100 Mechanical Ventilator 30 04/07/17 21:00 80 21 110/46 100 Mechanical Ventilator 30 04/07/17 20:58 83 20 100 Mechanical Ventilator 30 04/07/17 20:58 30 04/07/17 20:55 83 20 30 04/07/17 20:01 30 04/07/17 20:00 83 20 101/43 100 Mechanical Ventilator 30 04/07/17 20:00 83 04/07/17 19:27 83 18 30 04/07/17 19:00 98.4 80 18 100/42 100 Mechanical Ventilator 30 04/07/17 18:00 66 20 92/38 100 Mechanical Ventilator 30 04/07/17 17:33 109/44 04/07/17 17:11 80 19 30 04/07/17 17:00 82 18 104/46 100 Mechanical Ventilator 30 04/07/17 16:00 74 04/07/17 16:00 30 04/07/17 16:00 98.6 82 19 109/44 100 Mechanical Ventilator 30 04/07/17 15:13 82 20 30 04/07/17 15:00 86 22 98/49 100 Mechanical Ventilator 30 04/07/17 14:00 84 19 109/47 100 Mechanical Ventilator 30 Labs: Labs Test 04/05/17 20:30 04/06/17 04:00 04/06/17 13:05 04/06/17 22:30 Activated Partial Thromboplast Time 57 SEC (23-33) 178 SEC (23-33) 47 SEC (23-33) 105 SEC (23-33) White Blood Count 5.4 K/UL (4.8-10.8) 5.6 K/UL (4.8-10.8) Red Blood Count 2.08 M/UL (4.20-5.40) 2.32 M/UL (4.20-5.40) Hemoglobin 7.4 G/DL (12.0-16.0) 8.1 G/DL (12.0-16.0) Hematocrit 23.0 % (37.0-47.0) 24.8 % (37.0-47.0) Mean Corpuscular Volume 110 FL (80-99) 107 FL (80-99) Mean Corpuscular Hemoglobin 35.7 PG (27.0-31.0) 35.0 PG (27.0-31.0) Mean Corpuscular Hemoglobin Concent 32.4 G/DL (32.0-36.0) 32.8 G/DL (32.0-36.0) Red Cell Distribution Width 14.1 % (11.6-14.8) 13.9 % (11.6-14.8) Platelet Count 102 K/UL (150-450) 144 K/UL (150-450) Mean Platelet Volume 13.8 FL (6.5-10.1) 12.9 FL (6.5-10.1) Neutrophils (%) (Auto) % (45.0-75.0) 53.1 % (45.0-75.0) Lymphocytes (%) (Auto) % (20.0-45.0) 35.7 % (20.0-45.0) Monocytes (%) (Auto) % (1.0-10.0) 7.9 % (1.0-10.0) Eosinophils (%) (Auto) % (0.0-3.0) 2.3 % (0.0-3.0) Basophils (%) (Auto) % (0.0-2.0) 0.9 % (0.0-2.0) Differential Total Cells Counted 100 Neutrophils % (Manual) 60 % (45-75) Lymphocytes % (Manual) 26 % (20-45) Monocytes % (Manual) 9 % (1-10) Eosinophils % (Manual) 5 % (0-3) Basophils % (Manual) 0 % (0-2) Band Neutrophils 0 % (0-8) Platelet Estimate Decreased Platelet Morphology Normal Hypochromasia 1+ Anisocytosis 1+ Macrocytosis 1+ Sodium Level 151 mEQ/L (135-145) Potassium Level 4.0 mEQ/L (3.4-4.9) Chloride Level 113 mEQ/L (98-107) Carbon Dioxide Level 24 mEQ/L (20-30) Anion Gap 14 (5-15) Blood Urea Nitrogen 20 mg/dL (7-23) Creatinine 0.4 mg/dL (0.5-0.9) Estimat Glomerular Filtration Rate mL/min (>60) Glucose Level 86 mg/dL (74-106) Calcium Level 8.3 mg/dL (8.6-10.2) Test 04/07/17 06:00 04/07/17 14:00 04/07/17 23:20 04/08/17 06:55 White Blood Count 6.6 K/UL (4.8-10.8) 6.1 K/UL (4.8-10.8) Red Blood Count 2.17 M/UL (4.20-5.40) 2.17 M/UL (4.20-5.40) Hemoglobin 7.9 G/DL (12.0-16.0) 8.2 G/DL (12.0-16.0) Hematocrit 23.4 % (37.0-47.0) 24.3 % (37.0-47.0) Mean Corpuscular Volume 108 FL (80-99) 112 FL (80-99) Mean Corpuscular Hemoglobin 36.7 PG (27.0-31.0) 37.8 PG (27.0-31.0) Mean Corpuscular Hemoglobin Concent 34.0 G/DL (32.0-36.0) 33.8 G/DL (32.0-36.0) Red Cell Distribution Width 14.0 % (11.6-14.8) 13.5 % (11.6-14.8) Platelet Count 177 K/UL (150-450) 192 K/UL (150-450) Mean Platelet Volume 11.8 FL (6.5-10.1) 10.9 FL (6.5-10.1) Neutrophils (%) (Auto) % (45.0-75.0) % (45.0-75.0) Lymphocytes (%) (Auto) % (20.0-45.0) % (20.0-45.0) Monocytes (%) (Auto) % (1.0-10.0) % (1.0-10.0) Eosinophils (%) (Auto) % (0.0-3.0) % (0.0-3.0) Basophils (%) (Auto) % (0.0-2.0) % (0.0-2.0) Differential Total Cells Counted 100 100 Neutrophils % (Manual) 54 % (45-75) 57 % (45-75) Lymphocytes % (Manual) 32 % (20-45) 31 % (20-45) Monocytes % (Manual) 13 % (1-10) 9 % (1-10) Eosinophils % (Manual) 0 % (0-3) 3 % (0-3) Basophils % (Manual) 0 % (0-2) 0 % (0-2) Band Neutrophils 1 % (0-8) 0 % (0-8) Nucleated Red Blood Cells 3 /100 WBC 3 /100 WBC Platelet Estimate Adequate Adequate Platelet Morphology Normal Normal Hypochromasia 3+ 1+ Macrocytosis 1+ 1+ Activated Partial Thromboplast Time 61 SEC (23-33) 149 SEC (23-33) 60 SEC (23-33) 103 SEC (23-33) Sodium Level 144 mEQ/L (135-145) 142 mEQ/L (135-145) Potassium Level 3.5 mEQ/L (3.4-4.9) 4.0 mEQ/L (3.4-4.9) Chloride Level 105 mEQ/L (98-107) 106 mEQ/L (98-107) Carbon Dioxide Level 26 mEQ/L (20-30) 26 mEQ/L (20-30) Anion Gap 13 (5-15) 10 (5-15) Blood Urea Nitrogen 14 mg/dL (7-23) 10 mg/dL (7-23) Creatinine 0.4 mg/dL (0.5-0.9) 0.3 mg/dL (0.5-0.9) Estimat Glomerular Filtration Rate mL/min (>60) mL/min (>60) Glucose Level 97 mg/dL (74-106) 90 mg/dL (74-106) Calcium Level 7.9 mg/dL (8.6-10.2) 7.7 mg/dL (8.6-10.2) Total Bilirubin < 0.2 mg/dL (0.0-1.2) < 0.2 mg/dL (0.0-1.2) Aspartate Amino Transf (AST/SGOT) 19 U/L (5-40) 20 U/L (5-40) Alanine Aminotransferase (ALT/SGPT) 7 U/L (3-33) 6 U/L (3-33) Alkaline Phosphatase 73 U/L (35-104) 71 U/L (35-104) Total Protein 5.2 g/dL (6.6-8.7) 5.1 g/dL (6.6-8.7) Albumin 1.9 g/dL (3.5-5.2) 1.9 g/dL (3.5-5.2) Globulin 3.3 g/dL 3.2 g/dL Albumin/Globulin Ratio 0.5 (1.0-2.7) 0.5 (1.0-2.7) Polychromasia 2+ Magnesium Level 1.5 mg/dL (1.7-2.5) Test 04/08/17 09:57 Arterial Blood pH 7.370 (7.350-7.450) Arterial Blood Partial Pressure CO2 47.2 mmHg (35.0-45.0) Arterial Blood Partial Pressure O2 90.6 mmHg (75.0-100.0) Arterial Blood HCO3 27.0 mmol/L (22.0-26.0) Arterial Blood Oxygen Saturation 96.0 % (92.0-98.0) Arterial Blood Base Excess 1.5 Neil Test Positive Objective: GENERAL: The patient is a well-developed female, intubated HEENT: Negative. sluggish pupils NECK: Supple. no JVD LUNGS: Moderate breath sounds. no rhonchi noted. no wheeze; symmetric; no change CARDIAC: S1 and S2. Regular rate and rhythm.without MRG ABDOMEN: Soft and nontender. The patient has a G-tube in place . no HSM Extremities: No cyanosis or clubbing. noted contractures. Quadriparesis. withdrawn skin noted reviewed and edited Accucheck: 195 SANCHEZ NAVARRETE Apr 08, 2017 13:33
--- NOTE | 2017-04-08 14:51 | General Progress Note ---
Assessment/Plan Problem List: (1) Seizure disorder ICD Codes: G40.909 - Epilepsy, unspecified, not intractable, without status epilepticus SNOMED: 311875107 (2) ARF (acute renal failure) ICD Codes: N17.9 - Acute kidney failure, unspecified SNOMED: 47889829 Qualifiers: Qualified Codes: N17.9 - Acute kidney failure, unspecified (3) UTI (urinary tract infection) ICD Codes: N39.0 - Urinary tract infection, site not specified SNOMED: 33084527, 51072623 Qualifiers: Qualified Codes: N39.0 - Urinary tract infection, site not specified (4) Pneumonia ICD Codes: J18.9 - Pneumonia, unspecified organism SNOMED: 726414727, 98773121 Qualifiers: Qualified Codes: J18.1 - Lobar pneumonia, unspecified organism (5) Septic shock ICD Codes: A41.9 - Sepsis, unspecified organism; R65.21 - Severe sepsis with septic shock SNOMED: 49507592 (6) Hypoxia ICD Codes: R09.02 - Hypoxemia; R65.21 - Severe sepsis with septic shock SNOMED: 297045774, 45534372 (7) Altered level of consciousness ICD Codes: R40.4 - Transient alteration of awareness SNOMED: 3392310 Status: stable, progressing Assessment/Plan ivf adjusted- hypotonic iv abx vent support resp rx monitor abg extubate per per pulm follow up cultures and pending labs heparin drip- monitor h/h and plts. may have to dc if plts continue to drop check stool ob will consider NOAC if stool ob negative feeds cont sz rx picc today repeat cbc may need transfusion critical and guarded Subjective ROS Limited/Unobtainable: Yes Constitutional: Reports: malaise, weakness HEENT: Reports: no symptoms Cardiovascular: Reports: no symptoms Respiratory: Reports: no symptoms Gastrointestinal/Abdominal: Reports: difficulty swallowing Genitourinary: Reports: no symptoms Neurologic/Psychiatric: Reports: pre-existing deficit, seizure Endocrine: Reports: no symptoms Hematologic/Lymphatic: Reports: anemia Allergies: Coded Allergies: CEFTRIAXONE (Verified Allergy, Unknown, 03/31/17) PENICILLINS (Verified Allergy, Unknown, 03/31/17) SULFA (SULFONAMIDE ANTIBIOTICS) (Verified Allergy, Unknown, 03/31/17) TAZOBACTAM (Verified Allergy, Unknown, 03/31/17) All Systems: reviewed and negative except above Subjective on the vent. no overnight events. no fever or chills. tolerating feeds. no pauses. Objective Last 24 Hour Vital Signs Date Time Temp Pulse Resp B/P Pulse Ox O2 Delivery O2 Flow Rate FiO2 04/08/17 14:00 77 17 105/42 100 Mechanical Ventilator 30 04/08/17 13:00 85 17 98/43 100 Mechanical Ventilator 30 04/08/17 12:00 99.1 75 17 91/40 100 Mechanical Ventilator 30 04/08/17 12:00 73 04/08/17 11:00 75 16 122/47 100 Mechanical Ventilator 30 04/08/17 10:00 76 17 90/37 100 Mechanical Ventilator 30 04/08/17 09:32 84 16 100 Mechanical Ventilator 30 04/08/17 09:21 30 04/08/17 09:21 84 20 100 Mechanical Ventilator 30 04/08/17 09:15 81 22 30 04/08/17 09:14 96 04/08/17 09:00 82 17 100/37 100 Mechanical Ventilator 30 04/08/17 08:00 98.7 81 17 115/45 100 Mechanical Ventilator 30 04/08/17 08:00 89 04/08/17 08:00 30 04/08/17 07:30 82 17 30 04/08/17 07:00 85 17 108/41 100 Mechanical Ventilator 30 04/08/17 06:00 76 17 99/52 99 Mechanical Ventilator 30 04/08/17 05:27 84 19 30 04/08/17 05:00 85 21 101/44 100 Mechanical Ventilator 30 04/08/17 04:00 84 04/08/17 04:00 30 04/08/17 04:00 98.7 89 19 104/48 100 Mechanical Ventilator 30 04/08/17 03:25 87 20 30 04/08/17 03:00 88 21 124/46 100 Mechanical Ventilator 30 04/08/17 02:00 89 19 115/41 98 Mechanical Ventilator 30 04/08/17 01:28 87 23 30 04/08/17 01:00 85 20 122/46 98 Mechanical Ventilator 30 04/08/17 00:00 82 04/08/17 00:00 30 04/08/17 00:00 98.6 82 18 103/44 100 Mechanical Ventilator 30 04/07/17 23:00 73 20 92/42 100 Mechanical Ventilator 30 04/07/17 22:58 73 20 30 04/07/17 22:00 83 20 123/44 99 Mechanical Ventilator 30 04/07/17 21:07 83 16 100 Mechanical Ventilator 30 04/07/17 21:00 80 21 110/46 100 Mechanical Ventilator 30 04/07/17 20:58 83 20 100 Mechanical Ventilator 30 04/07/17 20:58 30 04/07/17 20:55 83 20 30 04/07/17 20:01 30 04/07/17 20:00 83 20 101/43 100 Mechanical Ventilator 30 04/07/17 20:00 83 04/07/17 19:27 83 18 30 04/07/17 19:00 98.4 80 18 100/42 100 Mechanical Ventilator 30 04/07/17 18:00 66 20 92/38 100 Mechanical Ventilator 30 04/07/17 17:33 109/44 04/07/17 17:11 80 19 30 04/07/17 17:00 82 18 104/46 100 Mechanical Ventilator 30 04/07/17 16:00 74 04/07/17 16:00 30 04/07/17 16:00 98.6 82 19 109/44 100 Mechanical Ventilator 30 04/07/17 15:13 82 20 30 04/07/17 15:00 86 22 98/49 100 Mechanical Ventilator 30 Intake and Output 04/07/17 04/08/17 19:00 07:00 Intake Total 1913.14 ml 2245.93 ml Output Total 850 ml 540 ml Balance 1063.14 ml 1705.93 ml Intake Free Water 150 ml IV Total 1253.14 ml 1435.93 ml Tube Feeding 660 ml 660 ml Output Urine Total 850 ml 540 ml # Bowel Movements 1 2 Laboratory Tests 04/07/17 23:20: Activated Partial Thromboplast Time 60H 04/08/17 06:55: Activated Partial Thromboplast Time 103H, White Blood Count 6.1, Red Blood Count 2.17L, Hemoglobin 8.2L, Hematocrit 24.3L, Mean Corpuscular Volume 112H, Mean Corpuscular Hemoglobin 37.8H, Mean Corpuscular Hemoglobin Concent 33.8, Red Cell Distribution Width 13.5, Platelet Count 192, Mean Platelet Volume 10.9H , Neutrophils (%) (Auto) , Lymphocytes (%) (Auto) , Monocytes (%) (Auto) , Eosinophils (%) (Auto) , Basophils (%) (Auto) , Differential Total Cells Counted 100, Neutrophils % (Manual) 57, Lymphocytes % (Manual) 31, Monocytes % ( Manual) 9, Eosinophils % (Manual) 3, Basophils % (Manual) 0, Band Neutrophils 0 , Nucleated Red Blood Cells 3, Platelet Estimate Adequate, Platelet Morphology Normal, Polychromasia 2+, Hypochromasia 1+, Macrocytosis 1+, Sodium Level 142, Potassium Level 4.0, Chloride Level 106, Carbon Dioxide Level 26, Anion Gap 10, Blood Urea Nitrogen 10, Creatinine 0.3L, Estimat Glomerular Filtration Rate , Glucose Level 90, Calcium Level 7.7L, Magnesium Level 1.5L, Total Bilirubin < 0.2, Aspartate Amino Transf (AST/SGOT) 20, Alanine Aminotransferase (ALT/SGPT) 6 , Alkaline Phosphatase 71, Total Protein 5.1L, Albumin 1.9L, Globulin 3.2, Albumin/Globulin Ratio 0.5L 04/08/17 09:57: Arterial Blood pH 7.370, Arterial Blood Partial Pressure CO2 47.2H, Arterial Blood Partial Pressure O2 90.6, Arterial Blood HCO3 27.0H, Arterial Blood Oxygen Saturation 96.0, Arterial Blood Base Excess 1.5, Neil Test Positive Height (Feet): 5 Height (Inches): 3.00 Weight (Pounds): 232 Objective General Appearance: WD/WN, confused Neck: supple Cardiovascular: normal rate, regular rhythm Respiratory/Chest: chest wall non-tender, no respiratory distress, no accessory muscle use, rhonchi - bilaterally Abdomen: normal bowel sounds, non tender, soft, no organomegaly Edema: no edema noted Arm (L), no edema noted Arm (R), no edema noted Leg (L), no edema noted Leg (R), no edema noted Pedal (L), no edema noted Pedal (R), no edema noted Generalized Neurologic: disoriented BREANNE SORIA Apr 08, 2017 14:51
[2017-04-08] MEDS ORDERED: Xarelto 10mg tab ORAL SCH (16:30)
--- NOTE | 2017-04-08 19:00 | Progress Note ---
DATE: 04/08/2017 CARDIOLOGY PROGRESS NOTE SUBJECTIVE: The patient remains in the intensive care unit. She was extubated today. She has not had any respiratory distress. Last night, she had some episodes of sinus pauses and bradycardia. She remains off amiodarone for the last 2 to 3 days. She did not have any pauses or bradycardia this morning. OBJECTIVE: VITAL SIGNS: Blood pressure 115/68, heart rate 75, respiratory rate 17, and temperature 99.1. LUNGS: Coarse breath sounds. Rhonchi. HEART: Regular rhythm and rate. Normal S1 and S2. ABDOMEN: Soft. Obese. EXTREMITIES: Trace edema. LABORATORY DATA: White count 6.1, hemoglobin 8.2. Sodium 142, potassium 4.0, bicarbonate 26, BUN 10, and creatinine 0.3. Albumin 1.9. ABG, pH 7.37, 47, and 91. IMPRESSION: 1. Recovering sepsis with shock. 2. Respiratory failure, status post extubation. 3. Paroxysmal atrial fibrillation, now in sinus rhythm. 4. Sinus node disease with episodes of bradyarrhythmia, now resolving. 5. Deep venous thrombosis. 6. Anemia. 7. Hypomagnesemia. PLAN: Respiratory hygiene. Maintenance hydration. Off amiodarone. Antimicrobials. Full anticoagulation with rivaroxaban. Monitor for signs of bleeding. Serial hemoglobin and stool occult blood testing. Hypotonic fluids. Magnesium replacement. Protein supplements by feeding tube. Nick Gilbert M.D. DR: STACIE JOB#: [id number] CC:
[2017-04-08] MEDS ORDERED: MAGNESIUM SULFATE IV SCH (20:00)
[2017-04-08] MEDS ORDERED: D5W IV SCH (20:00)
--- NOTE | 2017-04-08 21:05 | Cardiac Electrophysiology PN ---
Assessment/Plan Problem List: (1) ARF (acute renal failure) (2) UTI (urinary tract infection) (3) Pneumonia (4) Septic shock (5) Wide-complex tachycardia (6) Paroxysmal atrial fibrillation with rapid ventricular response Status: stable, progressing Status Narrative Mrs. Reynaga is maintaining sinus rhythm , but continues w/ short (appx 2 sec) pauses She has been successfully extubated. Assessment/Plan Would continue off antiarrhythmic agents for now, as had prolonged pauses , to 4 sec , on amiodarone earlier this week. Continue Xarelto. Follow i/os , wts, exam- xr - appears w/ mild vol overload. May need additional diuresis. Continue antibiotics for pneumonia per Dr Baker Subjective ROS Limited/Unobtainable: Yes Subjective Events noted. Pt extubated today. Objective Last 24 Hour Vital Signs Date Time Temp Pulse Resp B/P Pulse Ox O2 Delivery O2 Flow Rate FiO2 04/08/17 20:00 97.9 80 21 125/45 100 Nasal Cannula 2.0 04/08/17 19:10 Nasal Cannula 2.0 28 04/08/17 19:10 100 Nasal Cannula 2.0 28 04/08/17 19:10 82 18 Nasal Cannula 2.0 28 04/08/17 19:00 83 17 117/47 100 Mechanical Ventilator 30 04/08/17 18:00 81 17 118/68 99 Mechanical Ventilator 30 04/08/17 17:00 81 17 120/68 100 Mechanical Ventilator 30 04/08/17 16:00 99.0 80 17 115/68 100 Mechanical Ventilator 30 04/08/17 16:00 75 04/08/17 15:00 80 17 119/53 100 Mechanical Ventilator 30 04/08/17 14:00 77 17 105/42 100 Mechanical Ventilator 30 04/08/17 13:00 85 17 98/43 100 Mechanical Ventilator 30 04/08/17 12:00 99.1 75 17 91/40 100 Mechanical Ventilator 30 04/08/17 12:00 73 04/08/17 11:00 75 16 122/47 100 Mechanical Ventilator 30 04/08/17 10:00 76 17 90/37 100 Mechanical Ventilator 30 04/08/17 09:32 84 16 100 Mechanical Ventilator 30 04/08/17 09:21 30 04/08/17 09:21 84 20 100 Mechanical Ventilator 30 6/22/17 09:15 81 22 30 04/08/17 09:14 96 04/08/17 09:00 82 17 100/37 100 Mechanical Ventilator 30 04/08/17 08:00 98.7 81 17 115/45 100 Mechanical Ventilator 30 04/08/17 08:00 89 04/08/17 08:00 30 04/08/17 07:30 82 17 30 04/08/17 07:00 85 17 108/41 100 Mechanical Ventilator 30 04/08/17 06:00 76 17 99/52 99 Mechanical Ventilator 30 04/08/17 05:27 84 19 30 04/08/17 05:00 85 21 101/44 100 Mechanical Ventilator 30 04/08/17 04:00 84 04/08/17 04:00 30 04/08/17 04:00 98.7 89 19 104/48 100 Mechanical Ventilator 30 04/08/17 03:25 87 20 30 04/08/17 03:00 88 21 124/46 100 Mechanical Ventilator 30 04/08/17 02:00 89 19 115/41 98 Mechanical Ventilator 30 04/08/17 01:28 87 23 30 04/08/17 01:00 85 20 122/46 98 Mechanical Ventilator 30 04/08/17 00:00 82 04/08/17 00:00 30 04/08/17 00:00 98.6 82 18 103/44 100 Mechanical Ventilator 30 04/07/17 23:00 73 20 92/42 100 Mechanical Ventilator 30 04/07/17 22:58 73 20 30 04/07/17 22:00 83 20 123/44 99 Mechanical Ventilator 30 04/07/17 21:07 83 16 100 Mechanical Ventilator 30 04/07/17 21:00 80 21 110/46 100 Mechanical Ventilator 30 General Appearance: WD/WN, no apparent distress EENT: PERRL/EOMI Neck: no JVD Rhythm: NSR Cardiovascular: regular rhythm, no gallop/murmur Respiratory/Chest: other - scattered rhonchi bilat Abdomen: non tender, soft, other - + g tube Extremities: other - 1+ distal LE edema bilat. + contractures of UEs Intake and Output 04/07/17 04/08/17 19:00 07:00 Intake Total 1913.14 ml 2245.93 ml Output Total 850 ml 540 ml Balance 1063.14 ml 1705.93 ml Intake Free Water 150 ml IV Total 1253.14 ml 1435.93 ml Tube Feeding 660 ml 660 ml Output Urine Total 850 ml 540 ml # Bowel Movements 1 2 Laboratory Tests Test 04/07/17 23:20 04/08/17 06:55 04/08/17 09:57 04/08/17 16:15 Activated Partial Thromboplast Time 60 SEC (23-33) H 103 SEC (23-33) H 36 SEC (23-33) H White Blood Count 6.1 K/UL (4.8-10.8) Red Blood Count 2.17 M/UL (4.20-5.40) L Hemoglobin 8.2 G/DL (12.0-16.0) L Hematocrit 24.3 % (37.0-47.0) L Mean Corpuscular Volume 112 FL (80-99) H Mean Corpuscular Hemoglobin 37.8 PG (27.0-31.0) H Mean Corpuscular Hemoglobin Concent 33.8 G/DL (32.0-36.0) Red Cell Distribution Width 13.5 % (11.6-14.8) Platelet Count 192 K/UL (150-450) Mean Platelet Volume 10.9 FL (6.5-10.1) H Neutrophils (%) (Auto) % (45.0-75.0) Lymphocytes (%) (Auto) % (20.0-45.0) Monocytes (%) (Auto) % (1.0-10.0) Eosinophils (%) (Auto) % (0.0-3.0) Basophils (%) (Auto) % (0.0-2.0) Differential Total Cells Counted 100 Neutrophils % (Manual) 57 % (45-75) Lymphocytes % (Manual) 31 % (20-45) Monocytes % (Manual) 9 % (1-10) Eosinophils % (Manual) 3 % (0-3) Basophils % (Manual) 0 % (0-2) Band Neutrophils 0 % (0-8) Nucleated Red Blood Cells 3 /100 WBC Platelet Estimate Adequate Platelet Morphology Normal Polychromasia 2+ Hypochromasia 1+ Macrocytosis 1+ Sodium Level 142 mEQ/L (135-145) Potassium Level 4.0 mEQ/L (3.4-4.9) Chloride Level 106 mEQ/L (98-107) Carbon Dioxide Level 26 mEQ/L (20-30) Anion Gap 10 (5-15) Blood Urea Nitrogen 10 mg/dL (7-23) Creatinine 0.3 mg/dL (0.5-0.9) L Estimat Glomerular Filtration Rate mL/min (>60) Glucose Level 90 mg/dL (74-106) Calcium Level 7.7 mg/dL (8.6-10.2) L Magnesium Level 1.5 mg/dL (1.7-2.5) L Total Bilirubin < 0.2 mg/dL (0.0-1.2) Aspartate Amino Transf (AST/SGOT) 20 U/L (5-40) Alanine Aminotransferase (ALT/SGPT) 6 U/L (3-33) Alkaline Phosphatase 71 U/L (35-104) Total Protein 5.1 g/dL (6.6-8.7) L Albumin 1.9 g/dL (3.5-5.2) L Globulin 3.2 g/dL Albumin/Globulin Ratio 0.5 (1.0-2.7) L Arterial Blood pH 7.370 (7.350-7.450) Arterial Blood Partial Pressure CO2 47.2 mmHg (35.0-45.0) H Arterial Blood Partial Pressure O2 90.6 mmHg (75.0-100.0) Arterial Blood HCO3 27.0 mmol/L (22.0-26.0) H Arterial Blood Oxygen Saturation 96.0 % (92.0-98.0) Arterial Blood Base Excess 1.5 Neil Test Positive SIXTO LOOMIS Apr 08, 2017 21:05
[2017-04-09] VITALS (15 sets, daily range): BP systolic 95–138; BP diastolic 39–63
--- NOTE | 2017-04-09 08:22 | Critical Care Progress Note ---
Assessment/Plan Assessment/Plan IMPRESSION: 1. Respiratory failure . 2. Hypoxemia. 3. Evidence of pulmonary infiltrates consistent with pneumonia. 4. Hypotension. 5. Quadriparesis. 6. Bedbound state. 7. deep venous thrombosis. 8. Gastrostomy tube. 9. Known aspiration. 10. UTI 11. diarrhea 12. thrombocytopenia 13. hypernatremia 14. worsening anemia PLAN ventilator off stable cultures noted IV antibiotics anticoagulants as able pressors off monitor hemodynamics monitor oxygen needs ICU care as is for now improved hypotonic fluids monitor HH nutrition suction and monitoring for bleeding follow up cultures and adjust antibiotics reviewed ICU management may transition to [facility] medications/laboratory data/nursing notes/ICU care reviewed in detail note reviewed and edited care discussed with RN and RT ICU time spent 35 minutes Critical Care - Subjective Interval Events: extubated stable no distress findings overall improved ROS Limited/Unobtainable: Yes EKG Rhythm: Sinus Rhythm Residuals: minimal Tube Feeding Tolerated: yes I&O: Intake and Output 04/08/17 04/09/17 19:00 07:00 Intake Total 1383.3076 ml 614 ml Output Total 1075 ml 690 ml Balance 308.3076 ml -76 ml Intake Free Water 100 ml IV Total 623.3076 ml 114 ml Tube Feeding 660 ml 440 ml Other 60 ml Output Urine Total 1075 ml 690 ml # Bowel Movements 2 Critical Care - Objective ET-Tube: 7.5 ET Position: 20 Last 24 Hour Vital Signs Date Time Temp Pulse Resp B/P Pulse Ox O2 Delivery O2 Flow Rate FiO2 04/09/17 07:00 69 17 95/43 100 Nasal Cannula 2.0 04/09/17 06:00 72 17 95/43 96 Nasal Cannula 2.0 04/09/17 05:00 82 23 108/39 96 Nasal Cannula 2.0 04/09/17 04:00 81 04/09/17 04:00 98.5 81 16 121/48 98 Nasal Cannula 2.0 04/09/17 03:00 86 18 116/46 98 Nasal Cannula 2.0 04/09/17 02:00 82 18 127/53 100 Nasal Cannula 2.0 04/09/17 01:00 78 18 124/55 98 Nasal Cannula 2.0 04/09/17 00:00 89 04/09/17 00:00 98.2 81 18 138/44 100 Nasal Cannula 2.0 04/08/17 23:00 80 19 130/48 100 Nasal Cannula 2.0 04/08/17 22:00 80 19 110/43 100 Nasal Cannula 2.0 04/08/17 21:38 81 17 100 Nasal Cannula 2.0 28 04/08/17 21:24 80 17 100 Nasal Cannula 2.0 28 04/08/17 21:00 81 19 110/43 100 Nasal Cannula 2.0 04/08/17 20:00 82 04/08/17 20:00 97.9 80 21 125/45 100 Nasal Cannula 2.0 04/08/17 19:10 Nasal Cannula 2.0 28 04/08/17 19:10 100 Nasal Cannula 2.0 28 04/08/17 19:10 82 18 Nasal Cannula 2.0 28 04/08/17 19:00 83 17 117/47 100 Mechanical Ventilator 30 04/08/17 18:00 81 17 118/68 99 Mechanical Ventilator 30 04/08/17 17:00 81 17 120/68 100 Mechanical Ventilator 30 04/08/17 16:00 99.0 80 17 115/68 100 Mechanical Ventilator 30 04/08/17 16:00 75 04/08/17 15:00 80 17 119/53 100 Mechanical Ventilator 30 04/08/17 14:00 77 17 105/42 100 Mechanical Ventilator 30 04/08/17 13:00 85 17 98/43 100 Mechanical Ventilator 30 04/08/17 12:00 99.1 75 17 91/40 100 Mechanical Ventilator 30 04/08/17 12:00 73 04/08/17 11:00 75 16 122/47 100 Mechanical Ventilator 30 04/08/17 10:00 76 17 90/37 100 Mechanical Ventilator 30 04/08/17 09:32 84 16 100 Mechanical Ventilator 30 04/08/17 09:21 30 04/08/17 09:21 84 20 100 Mechanical Ventilator 30 04/08/17 09:15 81 22 30 04/08/17 09:14 96 04/08/17 09:00 82 17 100/37 100 Mechanical Ventilator 30 Labs: Labs Test 04/06/17 13:05 04/06/17 22:30 04/07/17 06:00 04/07/17 14:00 White Blood Count 5.6 K/UL (4.8-10.8) 6.6 K/UL (4.8-10.8) Red Blood Count 2.32 M/UL (4.20-5.40) 2.17 M/UL (4.20-5.40) Hemoglobin 8.1 G/DL (12.0-16.0) 7.9 G/DL (12.0-16.0) Hematocrit 24.8 % (37.0-47.0) 23.4 % (37.0-47.0) Mean Corpuscular Volume 107 FL (80-99) 108 FL (80-99) Mean Corpuscular Hemoglobin 35.0 PG (27.0-31.0) 36.7 PG (27.0-31.0) Mean Corpuscular Hemoglobin Concent 32.8 G/DL (32.0-36.0) 34.0 G/DL (32.0-36.0) Red Cell Distribution Width 13.9 % (11.6-14.8) 14.0 % (11.6-14.8) Platelet Count 144 K/UL (150-450) 177 K/UL (150-450) Mean Platelet Volume 12.9 FL (6.5-10.1) 11.8 FL (6.5-10.1) Neutrophils (%) (Auto) 53.1 % (45.0-75.0) % (45.0-75.0) Lymphocytes (%) (Auto) 35.7 % (20.0-45.0) % (20.0-45.0) Monocytes (%) (Auto) 7.9 % (1.0-10.0) % (1.0-10.0) Eosinophils (%) (Auto) 2.3 % (0.0-3.0) % (0.0-3.0) Basophils (%) (Auto) 0.9 % (0.0-2.0) % (0.0-2.0) Activated Partial Thromboplast Time 47 SEC (23-33) 105 SEC (23-33) 61 SEC (23-33) 149 SEC (23-33) Differential Total Cells Counted 100 Neutrophils % (Manual) 54 % (45-75) Lymphocytes % (Manual) 32 % (20-45) Monocytes % (Manual) 13 % (1-10) Eosinophils % (Manual) 0 % (0-3) Basophils % (Manual) 0 % (0-2) Band Neutrophils 1 % (0-8) Nucleated Red Blood Cells 3 /100 WBC Platelet Estimate Adequate Platelet Morphology Normal Hypochromasia 3+ Macrocytosis 1+ Sodium Level 144 mEQ/L (135-145) Potassium Level 3.5 mEQ/L (3.4-4.9) Chloride Level 105 mEQ/L (98-107) Carbon Dioxide Level 26 mEQ/L (20-30) Anion Gap 13 (5-15) Blood Urea Nitrogen 14 mg/dL (7-23) Creatinine 0.4 mg/dL (0.5-0.9) Estimat Glomerular Filtration Rate mL/min (>60) Glucose Level 97 mg/dL (74-106) Calcium Level 7.9 mg/dL (8.6-10.2) Total Bilirubin < 0.2 mg/dL (0.0-1.2) Aspartate Amino Transf (AST/SGOT) 19 U/L (5-40) Alanine Aminotransferase (ALT/SGPT) 7 U/L (3-33) Alkaline Phosphatase 73 U/L (35-104) Total Protein 5.2 g/dL (6.6-8.7) Albumin 1.9 g/dL (3.5-5.2) Globulin 3.3 g/dL Albumin/Globulin Ratio 0.5 (1.0-2.7) Test 04/07/17 23:20 04/08/17 06:55 04/08/17 09:57 04/08/17 16:15 Activated Partial Thromboplast Time 60 SEC (23-33) 103 SEC (23-33) 36 SEC (23-33) White Blood Count 6.1 K/UL (4.8-10.8) Red Blood Count 2.17 M/UL (4.20-5.40) Hemoglobin 8.2 G/DL (12.0-16.0) Hematocrit 24.3 % (37.0-47.0) Mean Corpuscular Volume 112 FL (80-99) Mean Corpuscular Hemoglobin 37.8 PG (27.0-31.0) Mean Corpuscular Hemoglobin Concent 33.8 G/DL (32.0-36.0) Red Cell Distribution Width 13.5 % (11.6-14.8) Platelet Count 192 K/UL (150-450) Mean Platelet Volume 10.9 FL (6.5-10.1) Neutrophils (%) (Auto) % (45.0-75.0) Lymphocytes (%) (Auto) % (20.0-45.0) Monocytes (%) (Auto) % (1.0-10.0) Eosinophils (%) (Auto) % (0.0-3.0) Basophils (%) (Auto) % (0.0-2.0) Differential Total Cells Counted 100 Neutrophils % (Manual) 57 % (45-75) Lymphocytes % (Manual) 31 % (20-45) Monocytes % (Manual) 9 % (1-10) Eosinophils % (Manual) 3 % (0-3) Basophils % (Manual) 0 % (0-2) Band Neutrophils 0 % (0-8) Nucleated Red Blood Cells 3 /100 WBC Platelet Estimate Adequate Platelet Morphology Normal Polychromasia 2+ Hypochromasia 1+ Macrocytosis 1+ Sodium Level 142 mEQ/L (135-145) Potassium Level 4.0 mEQ/L (3.4-4.9) Chloride Level 106 mEQ/L (98-107) Carbon Dioxide Level 26 mEQ/L (20-30) Anion Gap 10 (5-15) Blood Urea Nitrogen 10 mg/dL (7-23) Creatinine 0.3 mg/dL (0.5-0.9) Estimat Glomerular Filtration Rate mL/min (>60) Glucose Level 90 mg/dL (74-106) Calcium Level 7.7 mg/dL (8.6-10.2) Magnesium Level 1.5 mg/dL (1.7-2.5) Total Bilirubin < 0.2 mg/dL (0.0-1.2) Aspartate Amino Transf (AST/SGOT) 20 U/L (5-40) Alanine Aminotransferase (ALT/SGPT) 6 U/L (3-33) Alkaline Phosphatase 71 U/L (35-104) Total Protein 5.1 g/dL (6.6-8.7) Albumin 1.9 g/dL (3.5-5.2) Globulin 3.2 g/dL Albumin/Globulin Ratio 0.5 (1.0-2.7) Arterial Blood pH 7.370 (7.350-7.450) Arterial Blood Partial Pressure CO2 47.2 mmHg (35.0-45.0) Arterial Blood Partial Pressure O2 90.6 mmHg (75.0-100.0) Arterial Blood HCO3 27.0 mmol/L (22.0-26.0) Arterial Blood Oxygen Saturation 96.0 % (92.0-98.0) Arterial Blood Base Excess 1.5 Neil Test Positive Objective: GENERAL: The patient is a well-developed female, extubated HEENT: Negative. sluggish pupils NECK: Supple. no JVD LUNGS: Moderate breath sounds. no rhonchi noted. no wheeze; symmetric; no change CARDIAC: S1 and S2. Regular rate and rhythm.without MRG ABDOMEN: Soft and nontender. The patient has a G-tube in place . no HSM Extremities: No cyanosis or clubbing. noted contractures. Quadriparesis. withdrawn skin noted reviewed and edited Accucheck: 195 SANCHEZ NAVARRETE Apr 09, 2017 08:22
[2017-04-09] MEDS: Valproic Acid 250mg/5ml Liquid GT SCH (08:47)
[2017-04-09] MEDS: Lacosamide 50mg tablet ORAL SCH (08:47)
[2017-04-09] MEDS: Ascorbic Acid 500mg tab GT SCH (08:47)
[2017-04-09] MEDS: Dyna-Hex 2% Top Sol 8oz TOPIC SCH (08:48)
[2017-04-09] MEDS: Amikacin for Inhalation 2ML INH SCH (09:20)
[2017-04-09] MEDS ORDERED: MAGNESIUM SULFATE IV ONE (10:15)
[2017-04-09] MEDS ORDERED: D5W IV ONE (10:15)
[2017-04-09] MEDS ORDERED: NS 275ml ONE (10:41)
[2017-04-09] MEDS ORDERED: Tubing Blood Filter IV ONE (10:41)
[2017-04-09] MEDS ORDERED: Acetaminophen 650mg/20.3ml ORAL PRN (11:00)
[2017-04-09] MEDS ORDERED: Atropine Sulfate 1mg Inj IVP PRN (11:00)
--- NOTE | 2017-04-09 12:13 | Infectious Diseases Prog Note ---
"Assessment/Plan Assessment/Plan antibiotics : inhaled amikacin A 1. protues | e.coli UTI s/p rx 2. pseudomonas pneumonia 3. respiratory failure 4. multiple sclerosis 5. seizure disorder P 1. continue inhaled amikacin 1 more day 2. will follow up cultures Subjective ROS Limited/Unobtainable: Yes Allergies: Coded Allergies: CEFTRIAXONE (Verified Allergy, Unknown, 03/31/17) PENICILLINS (Verified Allergy, Unknown, 03/31/17) SULFA (SULFONAMIDE ANTIBIOTICS) (Verified Allergy, Unknown, 03/31/17) TAZOBACTAM (Verified Allergy, Unknown, 03/31/17) Objective Vital Signs Last 24 Hour Vital Signs Date Time Temp Pulse Resp B/P Pulse Ox O2 Delivery O2 Flow Rate FiO2 04/09/17 11:00 85 16 131/56 100 Nasal Cannula 2.0 04/09/17 10:00 73 16 97/41 100 Nasal Cannula 2.0 04/09/17 09:42 79 15 100 Nasal Cannula 2.0 04/09/17 09:20 83 18 100 Nasal Cannula 2.0 04/09/17 09:00 72 16 103/45 100 Nasal Cannula 2.0 04/09/17 08:00 75 04/09/17 08:00 98.0 75 16 116/43 100 Nasal Cannula 2.0 04/09/17 07:43 Nasal Cannula 2.0 04/09/17 07:42 99 Nasal Cannula 2.0 04/09/17 07:00 69 17 95/43 100 Nasal Cannula 2.0 04/09/17 06:00 72 17 95/43 96 Nasal Cannula 2.0 04/09/17 05:00 82 23 108/39 96 Nasal Cannula 2.0 04/09/17 04:00 81 04/09/17 04:00 98.5 81 16 121/48 98 Nasal Cannula 2.0 04/09/17 03:00 86 18 116/46 98 Nasal Cannula 2.0 04/09/17 02:00 82 18 127/53 100 Nasal Cannula 2.0 04/09/17 01:00 78 18 124/55 98 Nasal Cannula 2.0 04/09/17 00:00 89 04/09/17 00:00 98.2 81 18 138/44 100 Nasal Cannula 2.0 04/08/17 23:00 80 19 130/48 100 Nasal Cannula 2.0 04/08/17 22:00 80 19 110/43 100 Nasal Cannula 2.0 04/08/17 21:38 81 17 100 Nasal Cannula 2.0 28 04/08/17 21:24 80 17 100 Nasal Cannula 2.0 28 04/08/17 21:00 81 19 110/43 100 Nasal Cannula 2.0 04/08/17 20:00 82 04/08/17 20:00 97.9 80 21 125/45 100 Nasal Cannula 2.0 04/08/17 19:10 Nasal Cannula 2.0 28 04/08/17 19:10 100 Nasal Cannula 2.0 28 04/08/17 19:10 82 18 Nasal Cannula 2.0 28 04/08/17 19:00 83 17 117/47 100 Mechanical Ventilator 30 04/08/17 18:00 81 17 118/68 99 Mechanical Ventilator 30 04/08/17 17:00 81 17 120/68 100 Mechanical Ventilator 30 04/08/17 16:00 99.0 80 17 115/68 100 Mechanical Ventilator 30 04/08/17 16:00 75 04/08/17 15:00 80 17 119/53 100 Mechanical Ventilator 30 04/08/17 14:00 77 17 105/42 100 Mechanical Ventilator 30 04/08/17 13:00 85 17 98/43 100 Mechanical Ventilator 30 Height (Feet): 5 Height (Inches): 3.00 Weight (Pounds): 220 Respiratory/Chest: lungs clear Cardiovascular: normal rate, regular rhythm, no gallop/murmur Abdomen: soft, non tender, other - GT Extremities: other - + edema bilaterally, right arm PICC Laboratory Tests Test 04/08/17 16:15 Activated Partial Thromboplast Time 36 SEC (23-33) KAMRAN BYRNE Apr 09, 2017 12:13"
[2017-04-09] MEDS ORDERED: KCl 10% 40mEq/30ml liquid NG ONE (12:45)
--- NOTE | 2017-04-09 14:43 | General Progress Note ---
Assessment/Plan Problem List: (1) Seizure disorder ICD Codes: G40.909 - Epilepsy, unspecified, not intractable, without status epilepticus SNOMED: 331567095 (2) ARF (acute renal failure) ICD Codes: N17.9 - Acute kidney failure, unspecified SNOMED: 87603782 Qualifiers: Qualified Codes: N17.9 - Acute kidney failure, unspecified (3) UTI (urinary tract infection) ICD Codes: N39.0 - Urinary tract infection, site not specified SNOMED: 50904365, 95418852 Qualifiers: Qualified Codes: N39.0 - Urinary tract infection, site not specified (4) Pneumonia ICD Codes: J18.9 - Pneumonia, unspecified organism SNOMED: 076617782, 67377019 Qualifiers: Qualified Codes: J18.1 - Lobar pneumonia, unspecified organism (5) Septic shock ICD Codes: A41.9 - Sepsis, unspecified organism; R65.21 - Severe sepsis with septic shock SNOMED: 80349871 (6) Hypoxia ICD Codes: R09.02 - Hypoxemia; R65.21 - Severe sepsis with septic shock SNOMED: 589231860, 61687678 (7) Altered level of consciousness ICD Codes: R40.4 - Transient alteration of awareness SNOMED: 9732805 Status: stable, progressing Assessment/Plan transfer out of the icu abx per id cardiac rx resp care gt feeds sz rx xarelto monitor for bleeding. Subjective ROS Limited/Unobtainable: Yes Constitutional: Reports: malaise, weakness HEENT: Reports: no symptoms Cardiovascular: Reports: no symptoms Respiratory: Reports: cough Gastrointestinal/Abdominal: Reports: difficulty swallowing Genitourinary: Reports: no symptoms Neurologic/Psychiatric: Reports: pre-existing deficit, seizure Endocrine: Reports: no symptoms Hematologic/Lymphatic: Reports: no symptoms Allergies: Coded Allergies: CEFTRIAXONE (Verified Allergy, Unknown, 03/31/17) PENICILLINS (Verified Allergy, Unknown, 03/31/17) SULFA (SULFONAMIDE ANTIBIOTICS) (Verified Allergy, Unknown, 03/31/17) TAZOBACTAM (Verified Allergy, Unknown, 03/31/17) All Systems: reviewed and negative except above Subjective extubated. no overnight events. no fever or chills. tolerating feeds. no pauses. Objective Last 24 Hour Vital Signs Date Time Temp Pulse Resp B/P Pulse Ox O2 Delivery O2 Flow Rate FiO2 04/09/17 12:00 97.9 87 20 136/63 94 Nasal Cannula 2.0 04/09/17 11:00 85 16 131/56 100 Nasal Cannula 2.0 04/09/17 10:00 73 16 97/41 100 Nasal Cannula 2.0 04/09/17 09:42 79 15 100 Nasal Cannula 2.0 04/09/17 09:20 83 18 100 Nasal Cannula 2.0 04/09/17 09:00 72 16 103/45 100 Nasal Cannula 2.0 04/09/17 08:00 75 04/09/17 08:00 98.0 75 16 116/43 100 Nasal Cannula 2.0 04/09/17 07:43 Nasal Cannula 2.0 04/09/17 07:42 99 Nasal Cannula 2.0 04/09/17 07:00 69 17 95/43 100 Nasal Cannula 2.0 04/09/17 06:00 72 17 95/43 96 Nasal Cannula 2.0 04/09/17 05:00 82 23 108/39 96 Nasal Cannula 2.0 04/09/17 04:00 81 04/09/17 04:00 98.5 81 16 121/48 98 Nasal Cannula 2.0 04/09/17 03:00 86 18 116/46 98 Nasal Cannula 2.0 04/09/17 02:00 82 18 127/53 100 Nasal Cannula 2.0 04/09/17 01:00 78 18 124/55 98 Nasal Cannula 2.0 04/09/17 00:00 89 04/09/17 00:00 98.2 81 18 138/44 100 Nasal Cannula 2.0 04/08/17 23:00 80 19 130/48 100 Nasal Cannula 2.0 04/08/17 22:00 80 19 110/43 100 Nasal Cannula 2.0 04/08/17 21:38 81 17 100 Nasal Cannula 2.0 28 04/08/17 21:24 80 17 100 Nasal Cannula 2.0 28 04/08/17 21:00 81 19 110/43 100 Nasal Cannula 2.0 04/08/17 20:00 82 04/08/17 20:00 97.9 80 21 125/45 100 Nasal Cannula 2.0 04/08/17 19:10 Nasal Cannula 2.0 28 04/08/17 19:10 100 Nasal Cannula 2.0 28 04/08/17 19:10 82 18 Nasal Cannula 2.0 28 04/08/17 19:00 83 17 117/47 100 Mechanical Ventilator 30 04/08/17 18:00 81 17 118/68 99 Mechanical Ventilator 30 04/08/17 17:00 81 17 120/68 100 Mechanical Ventilator 30 04/08/17 16:00 99.0 80 17 115/68 100 Mechanical Ventilator 30 04/08/17 16:00 75 04/08/17 15:00 80 17 119/53 100 Mechanical Ventilator 30 Intake and Output 04/08/17 04/09/17 19:00 07:00 Intake Total 1383.3076 ml 614 ml Output Total 1075 ml 690 ml Balance 308.3076 ml -76 ml Intake Free Water 100 ml IV Total 623.3076 ml 114 ml Tube Feeding 660 ml 440 ml Other 60 ml Output Urine Total 1075 ml 690 ml # Bowel Movements 2 Laboratory Tests 04/08/17 16:15: Activated Partial Thromboplast Time 36H Height (Feet): 5 Height (Inches): 3.00 Weight (Pounds): 220 Objective General Appearance: WD/WN, confused Neck: supple Cardiovascular: normal rate, regular rhythm Respiratory/Chest: chest wall non-tender, no respiratory distress, no accessory muscle use, rhonchi - bilaterally Abdomen: normal bowel sounds, non tender, soft, no organomegaly Edema: no edema noted Arm (L), no edema noted Arm (R), no edema noted Leg (L), no edema noted Leg (R), no edema noted Pedal (L), no edema noted Pedal (R), no edema noted Generalized Neurologic: disoriented BREANNE SORIA Apr 09, 2017 14:43
[2017-04-09] MEDS ORDERED: Xarelto 10mg tab ORAL SCH (16:30)
[2017-04-09] MEDS ORDERED: Ascorbic Acid 500mg tab GT SCH (18:00)
--- NOTE | 2017-04-09 18:30 | Progress Note ---
DATE: 04/09/2017 SUBJECTIVE: The patient remains in the intensive care unit, off ventilator support. She was extubated and remained stable for the past 36 hours. She does have moderate secretions and requires round the clock respiratory hygiene and suctioning. Monitored rhythm is sinus, rare atrial ectopics. No recurring atrial fibrillation. The patient has not had any pauses. OBJECTIVE: VITAL SIGNS: Blood pressure is 97/41 to 131/56, heart rate 70, and respiratory rate 16. She is afebrile. She is on 2 liters nasal cannula, saturating 100%. RESPIRATORY: Coarse breath sounds. Scattered rhonchi. HEART: Regular rhythm and rate. Normal S1 and S2. ABDOMEN: Soft. No edema. LABORATORY DATA: No new labs today. IMPRESSION: 1. Paroxysmal atrial fibrillation. 2. Conduction system disease. 3. Sinus node disease. 4. Severe protein-calorie malnutrition, status post respiratory failure, status post sepsis with shock. 5. Acute on chronic diastolic congestive heart failure. 6. Deep venous thrombosis. PLAN: Continue cardiac monitoring. Close observation. Continue cardioembolic prophylaxis as well as treatment for DVT with Xarelto. No additional amiodarone or antiarrhythmic therapy at this time. Monitor volume status and diurese as needed. Nick Gilbert M.D. DR: SARAH JOB#: [id number] CC:
--- NOTE | 2017-04-09 20:35 | Cardiac Electrophysiology PN ---
Assessment/Plan Problem List: (1) ARF (acute renal failure) (2) UTI (urinary tract infection) (3) Pneumonia (4) Septic shock (5) Wide-complex tachycardia (6) Paroxysmal atrial fibrillation with rapid ventricular response Status: stable, progressing Status Narrative Mrs. Reynaga is maintaining sinus rhythm . Pauses have resolved, off amiodarone and she has not had recurrent AF. She was extubated on 04/08 , Assessment/Plan Would continue off antiarrhythmic agents for now. continue telemetry monitoring. continue Xarelto for PAF and DVT Treatment of pneumonia - respir rx, suctioning, iv abx, per primary team. Subjective ROS Limited/Unobtainable: Yes Subjective Events noted. Pt transferred to [facility] Awake/nonverbal Objective Last 24 Hour Vital Signs Date Time Temp Pulse Resp B/P Pulse Ox O2 Delivery O2 Flow Rate FiO2 04/09/17 20:00 98.6 89 20 130/56 92 Nasal Cannula 2.0 04/09/17 17:49 88 04/09/17 16:00 98.5 91 20 133/58 97 Nasal Cannula 2.0 04/09/17 12:00 85 04/09/17 12:00 97.9 87 20 136/63 94 Nasal Cannula 2.0 04/09/17 11:00 85 16 131/56 100 Nasal Cannula 2.0 04/09/17 10:00 73 16 97/41 100 Nasal Cannula 2.0 04/09/17 09:42 79 15 100 Nasal Cannula 2.0 04/09/17 09:20 83 18 100 Nasal Cannula 2.0 04/09/17 09:00 72 16 103/45 100 Nasal Cannula 2.0 04/09/17 08:00 75 04/09/17 08:00 98.0 75 16 116/43 100 Nasal Cannula 2.0 04/09/17 07:43 Nasal Cannula 2.0 04/09/17 07:42 99 Nasal Cannula 2.0 04/09/17 07:00 69 17 95/43 100 Nasal Cannula 2.0 04/09/17 06:00 72 17 95/43 96 Nasal Cannula 2.0 04/09/17 05:00 82 23 108/39 96 Nasal Cannula 2.0 04/09/17 04:00 81 04/09/17 04:00 98.5 81 16 121/48 98 Nasal Cannula 2.0 04/09/17 03:00 86 18 116/46 98 Nasal Cannula 2.0 04/09/17 02:00 82 18 127/53 100 Nasal Cannula 2.0 04/09/17 01:00 78 18 124/55 98 Nasal Cannula 2.0 04/09/17 00:00 89 04/09/17 00:00 98.2 81 18 138/44 100 Nasal Cannula 2.0 04/08/17 23:00 80 19 130/48 100 Nasal Cannula 2.0 04/08/17 22:00 80 19 110/43 100 Nasal Cannula 2.0 04/08/17 21:38 81 17 100 Nasal Cannula 2.0 28 04/08/17 21:24 80 17 100 Nasal Cannula 2.0 28 04/08/17 21:00 81 19 110/43 100 Nasal Cannula 2.0 General Appearance: WD/WN, no apparent distress, alert EENT: PERRL/EOMI Neck: supple, no JVD Rhythm: NSR Cardiovascular: normal rate, regular rhythm, no gallop/murmur Respiratory/Chest: lungs clear Abdomen: non tender, soft, other - + gtube Extremities: trace edema, other - contractures upper ext bilat Intake and Output 04/08/17 04/09/17 19:00 07:00 Intake Total 1383.3076 ml 614 ml Output Total 1075 ml 690 ml Balance 308.3076 ml -76 ml Intake Free Water 100 ml IV Total 623.3076 ml 114 ml Tube Feeding 660 ml 440 ml Other 60 ml Output Urine Total 1075 ml 690 ml # Bowel Movements 2 SIXTO LOOMIS Apr 09, 2017 20:35
[2017-04-09] MEDS ORDERED: Valproic Acid 250mg/5ml Liquid GT SCH (21:00)
[2017-04-09] MEDS ORDERED: Lacosamide 50mg tablet ORAL SCH (21:00)
[2017-04-09] MEDS ORDERED: Amikacin for Inhalation 2ML INH SCH (22:00)
[2017-04-10] VITALS: BP_SYST 118; BP_SYST 125; BP_DIAS 46; BP_DIAS 62
[2017-04-10] MEDS ORDERED: Acetaminophen 650mg/20.3ml ORAL PRN (00:45)
[2017-04-10 04:00] VITALS: BP 116/52
[2017-04-10 08:00] VITALS: BP 123/61
[2017-04-10 08:43] LABS: ALANINE AMINOTRANSFERASE 5 U/L (3-33); ALBUMIN/GLOBULIN RATIO 0.7 (1.0-2.7); ANION GAP 7 (5-15); ASPARTATE AMINO TRANSFERASE 18 U/L (5-40); CALCIUM 8.5 mg/dL (8.6-10.2); CARBON DIOXIDE 31 mEQ/L (20-30); CHLORIDE 108 mEQ/L (98-107); CREATININE 0.3 mg/dL (0.5-0.9); HEMOLYSIS 3; POTASSIUM 4.1 mEQ/L (3.4-4.9); SODIUM 146 mEQ/L (135-145); TOTAL PROTEIN 5.5 g/dL (6.6-8.7)
[2017-04-10] MEDS ORDERED: Dyna-Hex 2% Top Sol 8oz TOPIC SCH ×2 (09:00)
[2017-04-10] MEDS: Valproic Acid 250mg/5ml Liquid GT SCH ×2 (09:01→20:50)
[2017-04-10] MEDS: Ascorbic Acid 500mg tab GT SCH ×2 (09:02→18:40)
[2017-04-10] MEDS: Lacosamide 50mg tablet ORAL SCH ×2 (09:08→20:49)
[2017-04-10] MEDS ORDERED: Amikacin for Inhalation 2ML INH SCH (10:00)
--- NOTE | 2017-04-10 10:24 | Critical Care Progress Note ---
Assessment/Plan Assessment/Plan IMPRESSION: 1. Respiratory failure . 2. Hypoxemia. 3. Evidence of pulmonary infiltrates consistent with pneumonia. 4. Hypotension. 5. Quadriparesis. 6. Bedbound state. 7. deep venous thrombosis. 8. Gastrostomy tube. 9. Known aspiration. 10. UTI 11. diarrhea 12. thrombocytopenia 13. hypernatremia 14. worsening anemia PLAN ventilator off and stable stable cultures noted IV antibiotics reviewed anticoagulants as able pressors off monitor hemodynamics monitor oxygen needs monitor lytes monitor HH nutrition suction as neded follow up cultures and adjust antibiotics care in CLAUDIA medications/laboratory data/nursing notes reviewed in detail note reviewed and edited care discussed with RN and RT Critical Care - Subjective Interval Events: care noted and reviewed stable off vent ROS Limited/Unobtainable: Yes Condition: improving EKG Rhythm: Sinus Rhythm I&O: Intake and Output 04/09/17 04/10/17 19:00 07:00 Intake Total 730 ml 600 ml Output Total 2330 ml 450 ml Balance -1600 ml 150 ml Intake Free Water 150 ml 50 ml Tube Feeding 550 ml 550 ml Other 30 ml Output Urine Total 2330 ml 450 ml Critical Care - Objective ET-Tube: 7.5 ET Position: 20 Last 24 Hour Vital Signs Date Time Temp Pulse Resp B/P Pulse Ox O2 Delivery O2 Flow Rate FiO2 04/10/17 08:35 90 20 100 Nasal Cannula 2.0 04/10/17 08:30 88 18 98 Nasal Cannula 2.0 28 04/10/17 08:00 96.8 90 17 123/61 95 Nasal Cannula 2.0 04/10/17 07:30 98 Nasal Cannula 2.0 04/10/17 07:30 Nasal Cannula 2.0 04/10/17 04:00 92 04/10/17 04:00 97.5 90 20 116/52 96 Nasal Cannula 2.0 04/10/17 00:00 98.3 85 18 125/62 93 04/10/17 00:00 90 04/10/17 00:00 95.7 84 23 118/46 94 Nasal Cannula 2.0 04/09/17 21:49 81 15 100 Nasal Cannula 2.0 04/09/17 21:39 85 18 100 Nasal Cannula 2.0 04/09/17 20:00 98.6 89 20 130/56 92 Nasal Cannula 2.0 04/09/17 20:00 92 04/09/17 19:00 98 Nasal Cannula 2.0 04/09/17 19:00 Nasal Cannula 2.0 04/09/17 17:49 88 04/09/17 16:00 98.5 91 20 133/58 97 Nasal Cannula 2.0 04/09/17 12:00 85 04/09/17 12:00 97.9 87 20 136/63 94 Nasal Cannula 2.0 04/09/17 11:00 85 16 131/56 100 Nasal Cannula 2.0 Labs: Labs Test 04/07/17 14:00 04/07/17 23:20 04/08/17 06:55 04/08/17 09:57 Activated Partial Thromboplast Time 149 SEC (23-33) 60 SEC (23-33) 103 SEC (23-33) White Blood Count 6.1 K/UL (4.8-10.8) Red Blood Count 2.17 M/UL (4.20-5.40) Hemoglobin 8.2 G/DL (12.0-16.0) Hematocrit 24.3 % (37.0-47.0) Mean Corpuscular Volume 112 FL (80-99) Mean Corpuscular Hemoglobin 37.8 PG (27.0-31.0) Mean Corpuscular Hemoglobin Concent 33.8 G/DL (32.0-36.0) Red Cell Distribution Width 13.5 % (11.6-14.8) Platelet Count 192 K/UL (150-450) Mean Platelet Volume 10.9 FL (6.5-10.1) Neutrophils (%) (Auto) % (45.0-75.0) Lymphocytes (%) (Auto) % (20.0-45.0) Monocytes (%) (Auto) % (1.0-10.0) Eosinophils (%) (Auto) % (0.0-3.0) Basophils (%) (Auto) % (0.0-2.0) Differential Total Cells Counted 100 Neutrophils % (Manual) 57 % (45-75) Lymphocytes % (Manual) 31 % (20-45) Monocytes % (Manual) 9 % (1-10) Eosinophils % (Manual) 3 % (0-3) Basophils % (Manual) 0 % (0-2) Band Neutrophils 0 % (0-8) Nucleated Red Blood Cells 3 /100 WBC Platelet Estimate Adequate Platelet Morphology Normal Polychromasia 2+ Hypochromasia 1+ Macrocytosis 1+ Sodium Level 142 mEQ/L (135-145) Potassium Level 4.0 mEQ/L (3.4-4.9) Chloride Level 106 mEQ/L (98-107) Carbon Dioxide Level 26 mEQ/L (20-30) Anion Gap 10 (5-15) Blood Urea Nitrogen 10 mg/dL (7-23) Creatinine 0.3 mg/dL (0.5-0.9) Estimat Glomerular Filtration Rate mL/min (>60) Glucose Level 90 mg/dL (74-106) Calcium Level 7.7 mg/dL (8.6-10.2) Magnesium Level 1.5 mg/dL (1.7-2.5) Total Bilirubin < 0.2 mg/dL (0.0-1.2) Aspartate Amino Transf (AST/SGOT) 20 U/L (5-40) Alanine Aminotransferase (ALT/SGPT) 6 U/L (3-33) Alkaline Phosphatase 71 U/L (35-104) Total Protein 5.1 g/dL (6.6-8.7) Albumin 1.9 g/dL (3.5-5.2) Globulin 3.2 g/dL Albumin/Globulin Ratio 0.5 (1.0-2.7) Arterial Blood pH 7.370 (7.350-7.450) Arterial Blood Partial Pressure CO2 47.2 mmHg (35.0-45.0) Arterial Blood Partial Pressure O2 90.6 mmHg (75.0-100.0) Arterial Blood HCO3 27.0 mmol/L (22.0-26.0) Arterial Blood Oxygen Saturation 96.0 % (92.0-98.0) Arterial Blood Base Excess 1.5 Neil Test Positive Test 04/08/17 16:15 04/10/17 05:30 Activated Partial Thromboplast Time 36 SEC (23-33) Sodium Level 146 mEQ/L (135-145) Potassium Level 4.1 mEQ/L (3.4-4.9) Chloride Level 108 mEQ/L (98-107) Carbon Dioxide Level 31 mEQ/L (20-30) Anion Gap 7 (5-15) Blood Urea Nitrogen 8 mg/dL (7-23) Creatinine 0.3 mg/dL (0.5-0.9) Estimat Glomerular Filtration Rate mL/min (>60) Glucose Level 96 mg/dL (74-106) Calcium Level 8.5 mg/dL (8.6-10.2) Magnesium Level 2.0 mg/dL (1.7-2.5) Total Bilirubin < 0.2 mg/dL (0.0-1.2) Aspartate Amino Transf (AST/SGOT) 18 U/L (5-40) Alanine Aminotransferase (ALT/SGPT) 5 U/L (3-33) Alkaline Phosphatase 57 U/L (35-104) Pro-B-Type Natriuretic Peptide 1101 pg/mL (0-125) Total Protein 5.5 g/dL (6.6-8.7) Albumin 2.3 g/dL (3.5-5.2) Globulin 3.2 g/dL Albumin/Globulin Ratio 0.7 (1.0-2.7) Objective: GENERAL: The patient is a well-developed female, extubated HEENT: Negative. sluggish pupils NECK: Supple. no JVD LUNGS: Moderate breath sounds. no rhonchi noted. no wheeze; symmetric; no change CARDIAC: S1 and S2. Regular rate and rhythm.without MRG ABDOMEN: Soft and nontender. The patient has a G-tube in place . no HSM Extremities: No cyanosis or clubbing. noted contractures. Quadriparesis. withdrawn skin noted reviewed and edited Accucheck: 195 SANCHEZ NAVARRETE Apr 10, 2017 10:24
[2017-04-10] MEDS ORDERED: Atropine Sulfate 1mg Inj IVP PRN (11:00)
[2017-04-10 11:17] LABS: MEAN CORPUSCULAR HEMOGLOBIN 35.1 PG (27.0-31.0); MEAN CORPUSCULAR HGB CONC 30.2 G/DL (32.0-36.0); MEAN CORPUSCULAR VOLUME 116 FL (80-99); MEAN PLATELET VOLUME 9.5 FL (6.5-10.1); PLATELET COUNT 235 K/UL (150-450); RED BLOOD COUNT 2.31 M/UL (4.20-5.40); RED CELL DISTRIBUTION WIDTH 17.6 % (11.6-14.8); WHITE BLOOD COUNT 4.5 K/UL (4.8-10.8)
[2017-04-10 11:34] LABS: ALANINE AMINOTRANSFERASE 5 U/L (3-33); ALBUMIN/GLOBULIN RATIO 0.6 (1.0-2.7); ANION GAP 7 (5-15); ASPARTATE AMINO TRANSFERASE 20 U/L (5-40); CALCIUM 8.5 mg/dL (8.6-10.2); CARBON DIOXIDE 32 mEQ/L (20-30); CHLORIDE 106 mEQ/L (98-107); CREATININE 0.3 mg/dL (0.5-0.9); HEMOLYSIS 17; MAGNESIUM 1.8 mg/dL (1.7-2.5); POTASSIUM 3.9 mEQ/L (3.4-4.9); SODIUM 145 mEQ/L (135-145); TOTAL PROTEIN 5.6 g/dL (6.6-8.7)
[2017-04-10 11:51] LABS: BAND NEUTROPHILS % (MANUAL) 0 % (0-8); BASOPHILS % (MANUAL) 0 % (0-2); EOSINOPHILS % (MANUAL) 1 % (0-3); HYPOCHROMASIA 3+; LYMPHOCYTES % (MANUAL) 32 % (20-45); MACROCYTES 2+; NEUTROPHILS % (MANUAL) 60 % (45-75); NUCLEATED RED BLOOD CELLS 1 /100 WBC; PLATELET ESTIMATE ADEQUATE; TOTAL CELLS COUNTED 100
[2017-04-10 11:52] LABS: ANISOCYTOSIS 1+; PLATELET MORPHOLOGY NORMAL; POLYCHROMASIA 1+
[2017-04-10 12:00] VITALS: BP 108/54
--- NOTE | 2017-04-10 12:44 | General Progress Note ---
Assessment/Plan Problem List: (1) Seizure disorder ICD Codes: G40.909 - Epilepsy, unspecified, not intractable, without status epilepticus SNOMED: 253146690 (2) ARF (acute renal failure) ICD Codes: N17.9 - Acute kidney failure, unspecified SNOMED: 96292856 Qualifiers: Qualified Codes: N17.9 - Acute kidney failure, unspecified (3) UTI (urinary tract infection) ICD Codes: N39.0 - Urinary tract infection, site not specified SNOMED: 38771370, 74304380 Qualifiers: Qualified Codes: N39.0 - Urinary tract infection, site not specified (4) Pneumonia ICD Codes: J18.9 - Pneumonia, unspecified organism SNOMED: 211520865, 30653383 Qualifiers: Qualified Codes: J18.1 - Lobar pneumonia, unspecified organism (5) Septic shock ICD Codes: A41.9 - Sepsis, unspecified organism; R65.21 - Severe sepsis with septic shock SNOMED: 28988166 (6) Hypoxia ICD Codes: R09.02 - Hypoxemia; R65.21 - Severe sepsis with septic shock SNOMED: 950845059, 79005192 (7) Altered level of consciousness ICD Codes: R40.4 - Transient alteration of awareness SNOMED: 2533027 Assessment/Plan cont gt feeds resp care sz rx abx per ID dc planning wednesday if ok with all Subjective ROS Limited/Unobtainable: Yes Constitutional: Reports: malaise, weakness HEENT: Reports: no symptoms Cardiovascular: Reports: no symptoms Respiratory: Reports: cough, shortness of breath Gastrointestinal/Abdominal: Reports: difficulty swallowing Genitourinary: Reports: no symptoms Neurologic/Psychiatric: Reports: pre-existing deficit, seizure Endocrine: Reports: no symptoms Hematologic/Lymphatic: Reports: anemia Allergies: Coded Allergies: CEFTRIAXONE (Verified Allergy, Unknown, 03/31/17) PENICILLINS (Verified Allergy, Unknown, 03/31/17) SULFA (SULFONAMIDE ANTIBIOTICS) (Verified Allergy, Unknown, 03/31/17) TAZOBACTAM (Verified Allergy, Unknown, 03/31/17) All Systems: reviewed and negative except above Subjective no events. remains poorly responsive at baseline. confused. on gt feeds. no fevers Objective Last 24 Hour Vital Signs Date Time Temp Pulse Resp B/P Pulse Ox O2 Delivery O2 Flow Rate FiO2 04/10/17 08:35 90 20 100 Nasal Cannula 2.0 28 04/10/17 08:30 88 18 98 Nasal Cannula 2.0 28 04/10/17 08:00 96.8 90 17 123/61 95 Nasal Cannula 2.0 04/10/17 08:00 92 04/10/17 07:30 98 Nasal Cannula 2.0 28 04/10/17 07:30 Nasal Cannula 2.0 04/10/17 04:00 92 04/10/17 04:00 97.5 90 20 116/52 96 Nasal Cannula 2.0 04/10/17 00:00 98.3 85 18 125/62 93 04/10/17 00:00 90 04/10/17 00:00 95.7 84 23 118/46 94 Nasal Cannula 2.0 04/09/17 21:49 81 15 100 Nasal Cannula 2.0 04/09/17 21:39 85 18 100 Nasal Cannula 2.0 04/09/17 20:00 98.6 89 20 130/56 92 Nasal Cannula 2.0 04/09/17 20:00 92 04/09/17 19:00 98 Nasal Cannula 2.0 04/09/17 19:00 Nasal Cannula 2.0 04/09/17 17:49 88 04/09/17 16:00 98.5 91 20 133/58 97 Nasal Cannula 2.0 Intake and Output 04/09/17 04/10/17 19:00 07:00 Intake Total 730 ml 600 ml Output Total 2330 ml 450 ml Balance -1600 ml 150 ml Intake Free Water 150 ml 50 ml Tube Feeding 550 ml 550 ml Other 30 ml Output Urine Total 2330 ml 450 ml Laboratory Tests 04/10/17 05:30: Sodium Level 146H, Potassium Level 4.1, Chloride Level 108H, Carbon Dioxide Level 31H, Anion Gap 7, Blood Urea Nitrogen 8, Creatinine 0.3L, Estimat Glomerular Filtration Rate , Glucose Level 96, Calcium Level 8.5L, Magnesium Level 2.0, Total Bilirubin < 0.2, Aspartate Amino Transf (AST/SGOT) 18, Alanine Aminotransferase (ALT/SGPT) 5, Alkaline Phosphatase 57, Pro-B-Type Natriuretic Peptide 1101H, Total Protein 5.5L, Albumin 2.3L, Globulin 3.2, Albumin/Globulin Ratio 0.7L 04/10/17 10:45: Sodium Level 145, Potassium Level 3.9, Chloride Level 106, Carbon Dioxide Level 32H, Anion Gap 7, Blood Urea Nitrogen 9, Creatinine 0.3L, Estimat Glomerular Filtration Rate , Glucose Level 104, Calcium Level 8.5L, Magnesium Level 1.8, Total Bilirubin < 0.2, Aspartate Amino Transf (AST/SGOT) 20, Alanine Aminotransferase (ALT/SGPT) 5, Alkaline Phosphatase 52, Pro-B-Type Natriuretic Peptide [Pending], Total Protein 5.6L, Albumin 2.2L, Globulin 3.4, Albumin/ Globulin Ratio 0.6L, White Blood Count 4.5L, Red Blood Count 2.31L, Hemoglobin 8.1L, Hematocrit 26.9L, Mean Corpuscular Volume 116H, Mean Corpuscular Hemoglobin 35.1H, Mean Corpuscular Hemoglobin Concent 30.2L, Red Cell Distribution Width 17.6H, Platelet Count 235, Mean Platelet Volume 9.5, Neutrophils (%) (Auto) , Lymphocytes (%) (Auto) , Monocytes (%) (Auto) , Eosinophils (%) (Auto) , Basophils (%) (Auto) , Differential Total Cells Counted 100, Neutrophils % (Manual) 60, Lymphocytes % (Manual) 32, Monocytes % ( Manual) 7, Eosinophils % (Manual) 1, Basophils % (Manual) 0, Band Neutrophils 0 , Nucleated Red Blood Cells 1, Platelet Estimate Adequate, Platelet Morphology Normal, Polychromasia 1+, Hypochromasia 3+, Anisocytosis 1+, Macrocytosis 2+ Height (Feet): 5 Height (Inches): 3.00 Weight (Pounds): 236 Objective General Appearance: WD/WN, confused Neck: supple Cardiovascular: normal rate, regular rhythm Respiratory/Chest: chest wall non-tender, no respiratory distress, no accessory muscle use, rhonchi - bilaterally Abdomen: normal bowel sounds, non tender, soft, no organomegaly Edema: no edema noted Arm (L), no edema noted Arm (R), no edema noted Leg (L), no edema noted Leg (R), no edema noted Pedal (L), no edema noted Pedal (R), no edema noted Generalized Neurologic: disoriented BREANNE SORIA Apr 10, 2017 12:44
[2017-04-10] MEDS ORDERED: NS 275ml ONE (14:45)
[2017-04-10 16:00] VITALS: BP 134/76
[2017-04-10] MEDS: Xarelto 10mg tab ORAL SCH (17:02)
[2017-04-10 20:18] VITALS: BP 119/55
[2017-04-10] MEDS ORDERED: Atropine Inj 1mg/10ml Syr IVP PRN (22:08)
[2017-04-11 00:13] VITALS: BP 116/58
--- NOTE | 2017-04-11 00:45 | Progress Note ---
DATE: 04/10/2017 CARDIOLOGY PROGRESS NOTE: SUBJECTIVE: The patient is out of the intensive care unit, on ventilator support, off pressors. Blood pressure remained stable. Monitored rhythm sinus. She did have two pauses approximately 2.5 seconds that asymptomatic. OBJECTIVE: VITAL SIGNS: Blood pressure 123/61, pulse 90, and respiratory rate 17. LUNGS: Clear. CARDIAC: Regular. Normal S1, S2. ABDOMEN: Soft. EXTREMITIES: No edema. LABORATORY DATA: White count 4.5, hemoglobin 8.1, and platelet count 235,000. Sodium 145, potassium 3.9, bicarbonate 32, BUN 9, and creatinine 0.3. Pro-natriuretic peptide is 100. Albumin 2.2. IMPRESSION: 1. Mild dehydration. 2. Hypernatremia, improving. 3. Paroxysmal atrial fibrillation. 4. History of deep vein thrombosis on anticoagulation. 5. Sinus node disease asymptomatic and improved off amiodarone. 6. Seizure disorder. 7. Hypothyroidism on replacement therapy. 8. Acute on chronic diastolic congestive heart failure. PLAN: Antibiotics. Respiratory hygiene. Full anticoagulation. Cautious use of diuretics. Monitor volume status, cardiorenal parameters, and electrolytes. Reassess med regimen discharge. No antiarrhythmics and beta-blockers in this clinical setting. Nick Gilbert M.D. DR: Cuca JOB#: [id number] CC:
[2017-04-11 04:17] VITALS: BP 107/58
[2017-04-11 07:54] LABS: MEAN CORPUSCULAR HEMOGLOBIN 36.7 PG (27.0-31.0); MEAN CORPUSCULAR HGB CONC 31.1 G/DL (32.0-36.0); MEAN CORPUSCULAR VOLUME 118 FL (80-99); MEAN PLATELET VOLUME 9.4 FL (6.5-10.1); PLATELET COUNT 217 K/UL (150-450); RED BLOOD COUNT 2.14 M/UL (4.20-5.40); RED CELL DISTRIBUTION WIDTH 17.3 % (11.6-14.8); WHITE BLOOD COUNT 4.6 K/UL (4.8-10.8)
[2017-04-11 08:00] VITALS: BP 127/61
[2017-04-11] MEDS: Ascorbic Acid 500mg tab GT SCH ×2 (08:27→17:31)
[2017-04-11] MEDS: Lacosamide 50mg tablet ORAL SCH ×2 (08:27→22:03)
[2017-04-11] MEDS: Valproic Acid 250mg/5ml Liquid GT SCH ×2 (08:28→22:02)
[2017-04-11] MEDS ORDERED: Dyna-Hex 2% Top Sol 8oz TOPIC SCH (09:00)
--- NOTE | 2017-04-11 09:06 | General Progress Note ---
Assessment/Plan Problem List: (1) Seizure disorder ICD Codes: G40.909 - Epilepsy, unspecified, not intractable, without status epilepticus SNOMED: 555655107 (2) ARF (acute renal failure) ICD Codes: N17.9 - Acute kidney failure, unspecified SNOMED: 18502974 Qualifiers: Qualified Codes: N17.9 - Acute kidney failure, unspecified (3) UTI (urinary tract infection) ICD Codes: N39.0 - Urinary tract infection, site not specified SNOMED: 89247576, 77610022 Qualifiers: Qualified Codes: N39.0 - Urinary tract infection, site not specified (4) Pneumonia ICD Codes: J18.9 - Pneumonia, unspecified organism SNOMED: 433251431, 27762719 Qualifiers: Qualified Codes: J18.1 - Lobar pneumonia, unspecified organism (5) Septic shock ICD Codes: A41.9 - Sepsis, unspecified organism; R65.21 - Severe sepsis with septic shock SNOMED: 82577559 (6) Hypoxia ICD Codes: R09.02 - Hypoxemia; R65.21 - Severe sepsis with septic shock SNOMED: 899691951, 72804326 (7) Altered level of consciousness ICD Codes: R40.4 - Transient alteration of awareness SNOMED: 9208757 Status: stable, progressing Assessment/Plan cont gt feeds resp care sz rx abx per ID dc planning wednesday if ok with all Subjective ROS Limited/Unobtainable: Yes Constitutional: Reports: malaise, weakness HEENT: Reports: no symptoms Cardiovascular: Reports: no symptoms Respiratory: Reports: no symptoms Gastrointestinal/Abdominal: Reports: difficulty swallowing Genitourinary: Reports: no symptoms Neurologic/Psychiatric: Reports: pre-existing deficit, seizure Endocrine: Reports: no symptoms Hematologic/Lymphatic: Reports: anemia Allergies: Coded Allergies: CEFTRIAXONE (Verified Allergy, Unknown, 03/31/17) PENICILLINS (Verified Allergy, Unknown, 03/31/17) SULFA (SULFONAMIDE ANTIBIOTICS) (Verified Allergy, Unknown, 03/31/17) TAZOBACTAM (Verified Allergy, Unknown, 03/31/17) Subjective no events. remains poorly responsive at baseline. confused. on gt feeds. no fevers. h/h low but stable Objective Last 24 Hour Vital Signs Date Time Temp Pulse Resp B/P Pulse Ox O2 Delivery O2 Flow Rate FiO2 04/11/17 08:00 96.0 85 18 127/61 Nasal Cannula 04/11/17 07:49 Nasal Cannula 2.0 04/11/17 07:48 97 Nasal Cannula 2.0 28 04/11/17 04:17 98.1 91 20 107/58 94 04/11/17 04:00 88 04/11/17 00:13 97.9 87 20 116/58 97 Nasal Cannula 2.0 04/11/17 00:00 92 04/10/17 20:18 97.0 89 20 119/55 97 Nasal Cannula 2.0 04/10/17 20:00 89 04/10/17 16:00 97.7 93 18 134/76 98 Nasal Cannula 2.0 04/10/17 16:00 90 04/10/17 12:00 97.9 80 18 108/54 95 Nasal Cannula 2.0 04/10/17 12:00 80 Intake and Output 04/10/17 04/11/17 19:00 07:00 Intake Total 660 ml 660 ml Output Total 1500 ml 800 ml Balance -840 ml -140 ml Tube Feeding 660 ml 660 ml Output Urine Total 1500 ml 800 ml Laboratory Tests 04/10/17 10:45: White Blood Count 4.5L, Red Blood Count 2.31L, Hemoglobin 8.1L, Hematocrit 26.9L , Mean Corpuscular Volume 116H, Mean Corpuscular Hemoglobin 35.1H, Mean Corpuscular Hemoglobin Concent 30.2L, Red Cell Distribution Width 17.6H, Platelet Count 235, Mean Platelet Volume 9.5, Neutrophils (%) (Auto) , Lymphocytes (%) (Auto) , Monocytes (%) (Auto) , Eosinophils (%) (Auto) , Basophils (%) (Auto) , Differential Total Cells Counted 100, Neutrophils % ( Manual) 60, Lymphocytes % (Manual) 32, Monocytes % (Manual) 7, Eosinophils % ( Manual) 1, Basophils % (Manual) 0, Band Neutrophils 0, Nucleated Red Blood Cells 1, Platelet Estimate Adequate, Platelet Morphology Normal, Polychromasia 1 +, Hypochromasia 3+, Anisocytosis 1+, Macrocytosis 2+, Sodium Level 145, Potassium Level 3.9, Chloride Level 106, Carbon Dioxide Level 32H, Anion Gap 7, Blood Urea Nitrogen 9, Creatinine 0.3L, Estimat Glomerular Filtration Rate , Glucose Level 104, Calcium Level 8.5L, Magnesium Level 1.8, Total Bilirubin < 0.2, Aspartate Amino Transf (AST/SGOT) 20, Alanine Aminotransferase (ALT/SGPT) 5 , Alkaline Phosphatase 52, Pro-B-Type Natriuretic Peptide 1001H, Total Protein 5.6L, Albumin 2.2L, Globulin 3.4, Albumin/Globulin Ratio 0.6L 04/11/17 05:10: White Blood Count 4.6L, Red Blood Count 2.14L, Hemoglobin 7.9L, Hematocrit 25.3L , Mean Corpuscular Volume 118H, Mean Corpuscular Hemoglobin 36.7H, Mean Corpuscular Hemoglobin Concent 31.1L, Red Cell Distribution Width 17.3H, Platelet Count 217, Mean Platelet Volume 9.4, Neutrophils (%) (Auto) , Lymphocytes (%) (Auto) , Monocytes (%) (Auto) , Eosinophils (%) (Auto) , Basophils (%) (Auto) , Neutrophils % (Manual) [Pending], Lymphocytes % (Manual) [Pending], Platelet Estimate [Pending], Platelet Morphology [Pending], Sodium Level [Pending], Potassium Level [Pending], Chloride Level [Pending], Carbon Dioxide Level [Pending], Blood Urea Nitrogen [Pending], Creatinine [Pending], Estimat Glomerular Filtration Rate [Pending], Glucose Level [Pending], Calcium Level [Pending], Total Bilirubin [Pending], Aspartate Amino Transf (AST/SGOT) [ Pending], Alanine Aminotransferase (ALT/SGPT) [Pending], Alkaline Phosphatase [ Pending], Total Protein [Pending], Albumin [Pending], Globulin [Pending] Height (Feet): 5 Height (Inches): 3.00 Weight (Pounds): 236 Objective General Appearance: WD/WN, confused Neck: supple Cardiovascular: normal rate, regular rhythm Respiratory/Chest: chest wall non-tender, no respiratory distress, no accessory muscle use, rhonchi - bilaterally Abdomen: normal bowel sounds, non tender, soft, no organomegaly Edema: no edema noted Arm (L), no edema noted Arm (R), no edema noted Leg (L), no edema noted Leg (R), no edema noted Pedal (L), no edema noted Pedal (R), no edema noted Generalized Neurologic: disoriented BREANNE SORIA Apr 11, 2017 09:06
--- NOTE | 2017-04-11 09:23 | Infectious Diseases Prog Note ---
Assessment/Plan Assessment/Plan A 1. UTI s/p Rx 2. pneumonia with pseudomonas s/p Rx 3. respiratory failure, extubated 4. multiple sclerosis 5. seizure disorder P; Observe off antibiotic Discontinue PICC line at time of discharge Subjective ROS Limited/Unobtainable: Yes Allergies: Coded Allergies: CEFTRIAXONE (Verified Allergy, Unknown, 03/31/17) PENICILLINS (Verified Allergy, Unknown, 03/31/17) SULFA (SULFONAMIDE ANTIBIOTICS) (Verified Allergy, Unknown, 03/31/17) TAZOBACTAM (Verified Allergy, Unknown, 03/31/17) Objective Vital Signs Last 24 Hour Vital Signs Date Time Temp Pulse Resp B/P Pulse Ox O2 Delivery O2 Flow Rate FiO2 04/11/17 08:00 96.0 85 18 127/61 Nasal Cannula 04/11/17 07:49 Nasal Cannula 2.0 04/11/17 07:48 97 Nasal Cannula 2.0 28 04/11/17 04:17 98.1 91 20 107/58 94 04/11/17 04:00 88 04/11/17 00:13 97.9 87 20 116/58 97 Nasal Cannula 2.0 04/11/17 00:00 92 04/10/17 20:18 97.0 89 20 119/55 97 Nasal Cannula 2.0 04/10/17 20:00 89 04/10/17 16:00 97.7 93 18 134/76 98 Nasal Cannula 2.0 04/10/17 16:00 90 04/10/17 12:00 97.9 80 18 108/54 95 Nasal Cannula 2.0 04/10/17 12:00 80 Height (Feet): 5 Height (Inches): 3.00 Weight (Pounds): 236 General Appearance: no acute distress HEENT: mucous membranes moist Respiratory/Chest: lungs clear, other - O2 by nasal cannula Cardiovascular: normal rate Abdomen: soft, non tender, other - GT feeding Extremities: other - R arm PICC line Neurologic/Psychiatric: alert, responsive, aphasia Laboratory Tests Test 04/10/17 10:45 04/11/17 05:10 White Blood Count 4.5 K/UL (4.8-10.8) L 4.6 K/UL (4.8-10.8) L Red Blood Count 2.31 M/UL (4.20-5.40) L 2.14 M/UL (4.20-5.40) L Hemoglobin 8.1 G/DL (12.0-16.0) L 7.9 G/DL (12.0-16.0) L Hematocrit 26.9 % (37.0-47.0) L 25.3 % (37.0-47.0) L Mean Corpuscular Volume 116 FL (80-99) H 118 FL (80-99) H Mean Corpuscular Hemoglobin 35.1 PG (27.0-31.0) H 36.7 PG (27.0-31.0) H Mean Corpuscular Hemoglobin Concent 30.2 G/DL (32.0-36.0) L 31.1 G/DL (32.0-36.0) L Red Cell Distribution Width 17.6 % (11.6-14.8) H 17.3 % (11.6-14.8) H Platelet Count 235 K/UL (150-450) 217 K/UL (150-450) Mean Platelet Volume 9.5 FL (6.5-10.1) 9.4 FL (6.5-10.1) Neutrophils (%) (Auto) % (45.0-75.0) % (45.0-75.0) Lymphocytes (%) (Auto) % (20.0-45.0) % (20.0-45.0) Monocytes (%) (Auto) % (1.0-10.0) % (1.0-10.0) Eosinophils (%) (Auto) % (0.0-3.0) % (0.0-3.0) Basophils (%) (Auto) % (0.0-2.0) % (0.0-2.0) Differential Total Cells Counted 100 Neutrophils % (Manual) 60 % (45-75) Pending Lymphocytes % (Manual) 32 % (20-45) Pending Monocytes % (Manual) 7 % (1-10) Eosinophils % (Manual) 1 % (0-3) Basophils % (Manual) 0 % (0-2) Band Neutrophils 0 % (0-8) Nucleated Red Blood Cells 1 /100 WBC Platelet Estimate Adequate Pending Platelet Morphology Normal Pending Polychromasia 1+ Hypochromasia 3+ Anisocytosis 1+ Macrocytosis 2+ Sodium Level 145 mEQ/L (135-145) Pending Potassium Level 3.9 mEQ/L (3.4-4.9) Pending Chloride Level 106 mEQ/L (98-107) Pending Carbon Dioxide Level 32 mEQ/L (20-30) H Pending Anion Gap 7 (5-15) Blood Urea Nitrogen 9 mg/dL (7-23) Pending Creatinine 0.3 mg/dL (0.5-0.9) L Pending Estimat Glomerular Filtration Rate mL/min (>60) Pending Glucose Level 104 mg/dL (74-106) Pending Calcium Level 8.5 mg/dL (8.6-10.2) L Pending Magnesium Level 1.8 mg/dL (1.7-2.5) Total Bilirubin < 0.2 mg/dL (0.0-1.2) Pending Aspartate Amino Transf (AST/SGOT) 20 U/L (5-40) Pending Alanine Aminotransferase (ALT/SGPT) 5 U/L (3-33) Pending Alkaline Phosphatase 52 U/L (35-104) Pending Pro-B-Type Natriuretic Peptide 1001 pg/mL (0-125) H Total Protein 5.6 g/dL (6.6-8.7) L Pending Albumin 2.2 g/dL (3.5-5.2) L Pending Globulin 3.4 g/dL Pending Albumin/Globulin Ratio 0.6 (1.0-2.7) L Current Medications Medications (Trade) Dose Ordered Sig/Reji Route PRN Reason Start Time Stop Time Status Last Admin Dose Admin Acetaminophen (Tylenol) 650 mg Q4H PRN ORAL Mild Pain/Temp > 100.5 04/10/17 00:45 05/10/17 00:44 Ascorbic Acid (Vitamin C) 500 mg TWICE A DAY GT 04/10/17 09:00 05/10/17 08:59 04/11/17 08:27 Atropine Sulfate (Atropine) 1 mg DAILYPRN PRN IVP if HR less than 40 04/10/17 22:08 05/10/17 10:59 Chlorhexidine Gluconate (Sheela-Hex 2%) 1 applic DAILY TOPIC 04/11/17 09:00 05/11/17 08:59 04/11/17 08:27 Epoetin Carlos 3000 units 3,000 units WED-WED-WED SUBQ 04/12/17 21:00 05/12/17 20:59 UNV Iron Sucrose/ Sodium Chloride (Venofer/Sodium Chloride) 60 ml @ 240 mls/hr BEDTIME IVPB 04/11/17 21:00 04/15/17 21:14 UNV Lacosamide (Vimpat) 50 mg Q12HR ORAL 04/10/17 09:00 05/10/17 08:59 04/11/17 08:27 Lansoprazole (Prevacid) 30 mg DAILY GT 04/10/17 09:00 05/10/17 08:59 04/11/17 08:27 Levothyroxine Sodium (Synthroid) 50 mcg ACBREAKFAST GT 04/10/17 06:30 05/10/17 06:29 04/11/17 06:07 Rivaroxaban (Xarelto) 20 mg QPM ORAL 04/10/17 16:30 05/10/17 16:29 04/10/17 17:02 Valproic Acid (Depakene) 1,000 mg Q12HR GT 04/10/17 09:00 05/10/17 08:59 04/11/17 08:28 PARDEEP IRVING Apr 11, 2017 09:23
[2017-04-11 09:30] LABS: ALANINE AMINOTRANSFERASE < 5 U/L (3-33); ALBUMIN/GLOBULIN RATIO 0.7 (1.0-2.7); ANION GAP 11 (5-15); ASPARTATE AMINO TRANSFERASE 19 U/L (5-40); CALCIUM 8.6 mg/dL (8.6-10.2); CARBON DIOXIDE 32 mEQ/L (20-30); CHLORIDE 105 mEQ/L (98-107); CREATININE 0.3 mg/dL (0.5-0.9); HEMOLYSIS 2; SODIUM 148 mEQ/L (135-145); TOTAL PROTEIN 5.7 g/dL (6.6-8.7)
[2017-04-11 09:35] LABS: BAND NEUTROPHILS % (MANUAL) 0 % (0-8); BASOPHILS % (MANUAL) 0 % (0-2); EOSINOPHILS % (MANUAL) 0 % (0-3); LYMPHOCYTES % (MANUAL) 30 % (20-45); NEUTROPHILS % (MANUAL) 68 % (45-75); NUCLEATED RED BLOOD CELLS 1 /100 WBC; PLATELET ESTIMATE ADEQUATE; PLATELET MORPHOLOGY NORMAL; TOTAL CELLS COUNTED 100
[2017-04-11 09:36] LABS: ANISOCYTOSIS 1+; HYPOCHROMASIA 1+; MACROCYTES 1+; POLYCHROMASIA 1+
[2017-04-11] MEDS ORDERED: Sterile Water Irrig 1000ml IRRIG ONE (10:41)
[2017-04-11 12:00] VITALS: BP 118/59
[2017-04-11 12:30] LABS: FERRITIN 453 ng/mL (13-150)
[2017-04-11 12:33] LABS: HEMOLYSIS 7; IRON 73 ug/dL (37-145); TOTAL IRON BINDING CAPACITY 198 ug/dL (250-400)
--- NOTE | 2017-04-11 14:57 | Critical Care Progress Note ---
Assessment/Plan Assessment/Plan IMPRESSION: 1. Respiratory failure . 2. Hypoxemia. 3. Evidence of pulmonary infiltrates consistent with pneumonia. 4. Hypotension. 5. Quadriparesis. 6. Bedbound state. 7. deep venous thrombosis. 8. Gastrostomy tube. 9. Known aspiration. 10. UTI 11. diarrhea 12. thrombocytopenia 13. hypernatremia 14. worsening anemia PLAN ventilator off and stable stable cultures noted IV antibiotics reviewed anticoagulants as able pressors off monitor hemodynamics monitor oxygen needs monitor lytes monitor HH nutrition suction as needed follow up cultures and adjust antibiotics care in [facility] medications/laboratory data/nursing notes reviewed in detail note reviewed and edited care discussed with RN and RT Critical Care - Subjective ROS Limited/Unobtainable: Yes Condition: stable EKG Rhythm: Sinus Rhythm I&O: Intake and Output 04/10/17 04/11/17 19:00 07:00 Intake Total 660 ml 660 ml Output Total 1500 ml 800 ml Balance -840 ml -140 ml Tube Feeding 660 ml 660 ml Output Urine Total 1500 ml 800 ml Critical Care - Objective ET-Tube: 7.5 ET Position: 20 Last 24 Hour Vital Signs Date Time Temp Pulse Resp B/P Pulse Ox O2 Delivery O2 Flow Rate FiO2 04/11/17 12:00 79 04/11/17 12:00 97.9 84 18 118/59 Nasal Cannula 2.0 88 04/11/17 08:00 91 04/11/17 08:00 96.0 85 18 127/61 Nasal Cannula 04/11/17 07:49 Nasal Cannula 2.0 04/11/17 07:48 97 Nasal Cannula 2.0 28 04/11/17 04:17 98.1 91 20 107/58 94 04/11/17 04:00 88 04/11/17 00:13 97.9 87 20 116/58 97 Nasal Cannula 2.0 04/11/17 00:00 92 04/10/17 20:18 97.0 89 20 119/55 97 Nasal Cannula 2.0 04/10/17 20:00 89 04/10/17 16:00 97.7 93 18 134/76 98 Nasal Cannula 2.0 04/10/17 16:00 90 Labs: Labs Test 04/08/17 16:15 04/10/17 05:30 04/10/17 10:45 04/11/17 05:10 Activated Partial Thromboplast Time 36 SEC (23-33) Sodium Level 146 mEQ/L (135-145) 145 mEQ/L (135-145) 148 mEQ/L (135-145) Potassium Level 4.1 mEQ/L (3.4-4.9) 3.9 mEQ/L (3.4-4.9) 4.0 mEQ/L (3.4-4.9) Chloride Level 108 mEQ/L (98-107) 106 mEQ/L (98-107) 105 mEQ/L (98-107) Carbon Dioxide Level 31 mEQ/L (20-30) 32 mEQ/L (20-30) 32 mEQ/L (20-30) Anion Gap 7 (5-15) 7 (5-15) 11 (5-15) Blood Urea Nitrogen 8 mg/dL (7-23) 9 mg/dL (7-23) 12 mg/dL (7-23) Creatinine 0.3 mg/dL (0.5-0.9) 0.3 mg/dL (0.5-0.9) 0.3 mg/dL (0.5-0.9) Estimat Glomerular Filtration Rate mL/min (>60) mL/min (>60) mL/min (>60) Glucose Level 96 mg/dL (74-106) 104 mg/dL (74-106) 89 mg/dL (74-106) Calcium Level 8.5 mg/dL (8.6-10.2) 8.5 mg/dL (8.6-10.2) 8.6 mg/dL (8.6-10.2) Magnesium Level 2.0 mg/dL (1.7-2.5) 1.8 mg/dL (1.7-2.5) Total Bilirubin < 0.2 mg/dL (0.0-1.2) < 0.2 mg/dL (0.0-1.2) 0.2 mg/dL (0.0-1.2) Aspartate Amino Transf (AST/SGOT) 18 U/L (5-40) 20 U/L (5-40) 19 U/L (5-40) Alanine Aminotransferase (ALT/SGPT) 5 U/L (3-33) 5 U/L (3-33) < 5 U/L (3-33) Alkaline Phosphatase 57 U/L (35-104) 52 U/L (35-104) 52 U/L (35-104) Pro-B-Type Natriuretic Peptide 1101 pg/mL (0-125) 1001 pg/mL (0-125) Total Protein 5.5 g/dL (6.6-8.7) 5.6 g/dL (6.6-8.7) 5.7 g/dL (6.6-8.7) Albumin 2.3 g/dL (3.5-5.2) 2.2 g/dL (3.5-5.2) 2.5 g/dL (3.5-5.2) Globulin 3.2 g/dL 3.4 g/dL 3.2 g/dL Albumin/Globulin Ratio 0.7 (1.0-2.7) 0.6 (1.0-2.7) 0.7 (1.0-2.7) White Blood Count 4.5 K/UL (4.8-10.8) 4.6 K/UL (4.8-10.8) Red Blood Count 2.31 M/UL (4.20-5.40) 2.14 M/UL (4.20-5.40) Hemoglobin 8.1 G/DL (12.0-16.0) 7.9 G/DL (12.0-16.0) Hematocrit 26.9 % (37.0-47.0) 25.3 % (37.0-47.0) Mean Corpuscular Volume 116 FL (80-99) 118 FL (80-99) Mean Corpuscular Hemoglobin 35.1 PG (27.0-31.0) 36.7 PG (27.0-31.0) Mean Corpuscular Hemoglobin Concent 30.2 G/DL (32.0-36.0) 31.1 G/DL (32.0-36.0) Red Cell Distribution Width 17.6 % (11.6-14.8) 17.3 % (11.6-14.8) Platelet Count 235 K/UL (150-450) 217 K/UL (150-450) Mean Platelet Volume 9.5 FL (6.5-10.1) 9.4 FL (6.5-10.1) Neutrophils (%) (Auto) % (45.0-75.0) % (45.0-75.0) Lymphocytes (%) (Auto) % (20.0-45.0) % (20.0-45.0) Monocytes (%) (Auto) % (1.0-10.0) % (1.0-10.0) Eosinophils (%) (Auto) % (0.0-3.0) % (0.0-3.0) Basophils (%) (Auto) % (0.0-2.0) % (0.0-2.0) Differential Total Cells Counted 100 100 Neutrophils % (Manual) 60 % (45-75) 68 % (45-75) Lymphocytes % (Manual) 32 % (20-45) 30 % (20-45) Monocytes % (Manual) 7 % (1-10) 2 % (1-10) Eosinophils % (Manual) 1 % (0-3) 0 % (0-3) Basophils % (Manual) 0 % (0-2) 0 % (0-2) Band Neutrophils 0 % (0-8) 0 % (0-8) Nucleated Red Blood Cells 1 /100 WBC 1 /100 WBC Platelet Estimate Adequate Adequate Platelet Morphology Normal Normal Polychromasia 1+ 1+ Hypochromasia 3+ 1+ Anisocytosis 1+ 1+ Macrocytosis 2+ 1+ Iron Level 73 ug/dL (37-145) Total Iron Binding Capacity 198 ug/dL (250-400) Percent Iron Saturation 37 % (15-50) Unsaturated Iron Binding 125 ug/dL (112-346) Ferritin 453 ng/mL (13-150) Objective: GENERAL: The patient is a well-developed female, on oxygen HEENT: Negative. sluggish pupils NECK: Supple. no JVD LUNGS: Moderate breath sounds. no rhonchi noted. no wheeze; symmetric; no change CARDIAC: S1 and S2. Regular rate and rhythm.without MRG ABDOMEN: Soft and nontender. The patient has a G-tube in place . no HSM Extremities: No cyanosis or clubbing. noted contractures. Quadriparesis. withdrawn skin noted reviewed and edited Accucheck: 195 SANCHEZ NAVARRETE Apr 11, 2017 14:57
[2017-04-11 16:00] VITALS: BP 110/57
[2017-04-11] MEDS: Xarelto 10mg tab ORAL SCH (16:47)
[2017-04-11 20:00] VITALS: BP 110/53
[2017-04-11] MEDS ORDERED: Acetaminophen 650mg/20.3ml ORAL PRN (20:45)
[2017-04-11] MEDS ORDERED: Iron Sucrose 100 MG in NS 55 ML IVPB SCH ×4 (21:00)
[2017-04-11] MEDS ORDERED: Atropine Inj 1mg/10ml Syr IVP PRN (22:15)
--- NOTE | 2017-04-11 22:15 | Progress Note ---
DATE: 04/11/2017 CARDIOLOGY PROGRESS NOTE SUBJECTIVE: The patient remains poorly responsive and confused, this is her baseline. She is tolerating G-tube feedings. No respiratory distress. OBJECTIVE: VITAL SIGNS: Blood pressure is 127/61, pulse 85, respiratory rate 18 and afebrile. Monitored rhythm, sinus. She had 2.2 second pauses. No recurring atrial fibrillation. NECK: Supple. LUNGS: With clear breath sounds. CARDIAC: Regular. Normal S1 and S2. ABDOMEN: Soft. EXTREMITIES: No edema. LABORATORY AND DIAGNOSTIC DATA: White count 4.6 and hemoglobin 7.9. Potassium 4.0, sodium 148, bicarbonate 32, BUN 12, and creatinine 0.3. Albumin 2.5. Iron is normal. IMPRESSION: 1. Dehydration. 2. Hypernatremia. 3. Conduction system disease. 4. Sinus node disease. 5. Paroxysmal atrial fibrillation. 6. Anemia of chronic disease. 7. Severe protein-calorie malnutrition. 8. Status post respiratory failure. 9. Multiple sclerosis. 10. Seizure disorder. 11. Recovering urinary tract infection and pneumonia consistent with sepsis. 12. Acute deep venous thrombosis. PLAN: 1. Respiratory hygiene. 2. Free water replacement. 3. Off amiodarone and other antiarrhythmics. 4. Continue Xarelto for management of DVT and cardioembolic prophylaxis. 5. Discontinue iron. Nick Gilbert M.D. DR: SRIDEVI JOB#: [id number] CC:
[2017-04-12] VITALS: BP 116/54
[2017-04-12 04:00] VITALS: BP 98/66
[2017-04-12 08:00] VITALS: BP 103/56
--- NOTE | 2017-04-12 08:53 | Critical Care Progress Note ---
Assessment/Plan Assessment/Plan IMPRESSION: 1. Respiratory failure . 2. Hypoxemia. 3. Evidence of pulmonary infiltrates consistent with pneumonia. 4. Hypotension. 5. Quadriparesis. 6. Bedbound state. 7. deep venous thrombosis. 8. Gastrostomy tube. 9. Known aspiration. 10. UTI 11. diarrhea 12. thrombocytopenia 13. hypernatremia 14. worsening anemia PLAN ventilator off and stable stable on oxygen cultures noted transfuse IV antibiotics reviewed anticoagulants with caution pressors off monitor hemodynamics monitor oxygen needs monitor lytes monitor HH nutrition suction as needed aspiration precautions follow up cultures care in [facility] for now medications/laboratory data/nursing notes reviewed in detail note reviewed and edited care discussed with RN and RT Critical Care - Subjective Condition: stable EKG Rhythm: Sinus Rhythm I&O: Intake and Output 04/11/17 04/12/17 19:00 07:00 Intake Total 660 ml 1485 ml Output Total 675 ml Balance 660 ml 810 ml Intake Free Water 30 ml IV Total 850 ml Tube Feeding 660 ml 605 ml Output Urine Total 675 ml Critical Care - Objective ET-Tube: 7.5 ET Position: 20 Last 24 Hour Vital Signs Date Time Temp Pulse Resp B/P Pulse Ox O2 Delivery O2 Flow Rate FiO2 04/12/17 08:00 98.2 90 20 103/56 97 Nasal Cannula 3.0 04/12/17 04:00 98.9 92 20 98/66 Nasal Cannula 2.0 04/12/17 00:00 98.1 89 18 116/54 94 Nasal Cannula 2.0 04/11/17 20:00 98.2 87 20 110/53 91 Nasal Cannula 2.0 04/11/17 19:51 Nasal Cannula 2.0 04/11/17 19:51 98 Nasal Cannula 2.0 28 04/11/17 16:00 97.7 91 18 110/57 Nasal Cannula 2.0 89 04/11/17 16:00 82 04/11/17 12:00 79 04/11/17 12:00 97.9 84 18 118/59 Nasal Cannula 2.0 88 Labs: Labs Test 04/10/17 05:30 04/10/17 10:45 04/11/17 05:10 04/12/17 05:00 Sodium Level 146 mEQ/L (135-145) 145 mEQ/L (135-145) 148 mEQ/L (135-145) Potassium Level 4.1 mEQ/L (3.4-4.9) 3.9 mEQ/L (3.4-4.9) 4.0 mEQ/L (3.4-4.9) Chloride Level 108 mEQ/L (98-107) 106 mEQ/L (98-107) 105 mEQ/L (98-107) Carbon Dioxide Level 31 mEQ/L (20-30) 32 mEQ/L (20-30) 32 mEQ/L (20-30) Anion Gap 7 (5-15) 7 (5-15) 11 (5-15) Blood Urea Nitrogen 8 mg/dL (7-23) 9 mg/dL (7-23) 12 mg/dL (7-23) Creatinine 0.3 mg/dL (0.5-0.9) 0.3 mg/dL (0.5-0.9) 0.3 mg/dL (0.5-0.9) Estimat Glomerular Filtration Rate mL/min (>60) mL/min (>60) mL/min (>60) Glucose Level 96 mg/dL (74-106) 104 mg/dL (74-106) 89 mg/dL (74-106) Calcium Level 8.5 mg/dL (8.6-10.2) 8.5 mg/dL (8.6-10.2) 8.6 mg/dL (8.6-10.2) Magnesium Level 2.0 mg/dL (1.7-2.5) 1.8 mg/dL (1.7-2.5) 1.7 mg/dL (1.7-2.5) Total Bilirubin < 0.2 mg/dL (0.0-1.2) < 0.2 mg/dL (0.0-1.2) 0.2 mg/dL (0.0-1.2) Aspartate Amino Transf (AST/SGOT) 18 U/L (5-40) 20 U/L (5-40) 19 U/L (5-40) Alanine Aminotransferase (ALT/SGPT) 5 U/L (3-33) 5 U/L (3-33) < 5 U/L (3-33) Alkaline Phosphatase 57 U/L (35-104) 52 U/L (35-104) 52 U/L (35-104) Pro-B-Type Natriuretic Peptide 1101 pg/mL (0-125) 1001 pg/mL (0-125) Total Protein 5.5 g/dL (6.6-8.7) 5.6 g/dL (6.6-8.7) 5.7 g/dL (6.6-8.7) Albumin 2.3 g/dL (3.5-5.2) 2.2 g/dL (3.5-5.2) 2.5 g/dL (3.5-5.2) Globulin 3.2 g/dL 3.4 g/dL 3.2 g/dL Albumin/Globulin Ratio 0.7 (1.0-2.7) 0.6 (1.0-2.7) 0.7 (1.0-2.7) White Blood Count 4.5 K/UL (4.8-10.8) 4.6 K/UL (4.8-10.8) Red Blood Count 2.31 M/UL (4.20-5.40) 2.14 M/UL (4.20-5.40) Hemoglobin 8.1 G/DL (12.0-16.0) 7.9 G/DL (12.0-16.0) Hematocrit 26.9 % (37.0-47.0) 25.3 % (37.0-47.0) Mean Corpuscular Volume 116 FL (80-99) 118 FL (80-99) Mean Corpuscular Hemoglobin 35.1 PG (27.0-31.0) 36.7 PG (27.0-31.0) Mean Corpuscular Hemoglobin Concent 30.2 G/DL (32.0-36.0) 31.1 G/DL (32.0-36.0) Red Cell Distribution Width 17.6 % (11.6-14.8) 17.3 % (11.6-14.8) Platelet Count 235 K/UL (150-450) 217 K/UL (150-450) Mean Platelet Volume 9.5 FL (6.5-10.1) 9.4 FL (6.5-10.1) Neutrophils (%) (Auto) % (45.0-75.0) % (45.0-75.0) Lymphocytes (%) (Auto) % (20.0-45.0) % (20.0-45.0) Monocytes (%) (Auto) % (1.0-10.0) % (1.0-10.0) Eosinophils (%) (Auto) % (0.0-3.0) % (0.0-3.0) Basophils (%) (Auto) % (0.0-2.0) % (0.0-2.0) Differential Total Cells Counted 100 100 Neutrophils % (Manual) 60 % (45-75) 68 % (45-75) Lymphocytes % (Manual) 32 % (20-45) 30 % (20-45) Monocytes % (Manual) 7 % (1-10) 2 % (1-10) Eosinophils % (Manual) 1 % (0-3) 0 % (0-3) Basophils % (Manual) 0 % (0-2) 0 % (0-2) Band Neutrophils 0 % (0-8) 0 % (0-8) Nucleated Red Blood Cells 1 /100 WBC 1 /100 WBC Platelet Estimate Adequate Adequate Platelet Morphology Normal Normal Polychromasia 1+ 1+ Hypochromasia 3+ 1+ Anisocytosis 1+ 1+ Macrocytosis 2+ 1+ Iron Level 73 ug/dL (37-145) Total Iron Binding Capacity 198 ug/dL (250-400) Percent Iron Saturation 37 % (15-50) Unsaturated Iron Binding 125 ug/dL (112-346) Ferritin 453 ng/mL (13-150) Objective: GENERAL: The patient is a well-developed female, on oxygen HEENT: Negative. sluggish pupils NECK: Supple. no JVD LUNGS: Moderate breath sounds. no rhonchi noted. no wheeze; symmetric; no change CARDIAC: S1 and S2. Regular rate and rhythm.without MRG ABDOMEN: Soft and nontender. The patient has a G-tube in place . no HSM Extremities: No cyanosis or clubbing. noted contractures. Quadriparesis. withdrawn skin noted reviewed and edited Accucheck: SANCHEZ RIOS Apr 12, 2017 08:53
[2017-04-12] MEDS ORDERED: Dyna-Hex 2% Top Sol 8oz TOPIC SCH (09:00)
[2017-04-12] MEDS: Ascorbic Acid 500mg tab GT SCH ×2 (09:07→18:15)
[2017-04-12] MEDS: Valproic Acid 250mg/5ml Liquid GT SCH ×2 (09:08→21:33)
[2017-04-12] MEDS: Lacosamide 50mg tablet ORAL SCH ×2 (09:09→21:32)
[2017-04-12 10:10] LABS: MEAN CORPUSCULAR HEMOGLOBIN 35.7 PG (27.0-31.0); MEAN CORPUSCULAR HGB CONC 30.3 G/DL (32.0-36.0); MEAN CORPUSCULAR VOLUME 118 FL (80-99); MEAN PLATELET VOLUME 8.6 FL (6.5-10.1); PLATELET COUNT 226 K/UL (150-450); RED BLOOD COUNT 2.09 M/UL (4.20-5.40); RED CELL DISTRIBUTION WIDTH 17.9 % (11.6-14.8); WHITE BLOOD COUNT 3.8 K/UL (4.8-10.8)
[2017-04-12 10:13] LABS: ALANINE AMINOTRANSFERASE < 5 U/L (3-33); ALBUMIN/GLOBULIN RATIO 0.7 (1.0-2.7); ANION GAP 11 (5-15); ASPARTATE AMINO TRANSFERASE 19 U/L (5-40); CALCIUM 8.6 mg/dL (8.6-10.2); CARBON DIOXIDE 31 mEQ/L (20-30); CHLORIDE 103 mEQ/L (98-107); CREATININE 0.3 mg/dL (0.5-0.9); HEMOLYSIS 5; POTASSIUM 4.2 mEQ/L (3.4-4.9); SODIUM 145 mEQ/L (135-145); TOTAL PROTEIN 5.8 g/dL (6.6-8.7)
[2017-04-12 10:36] LABS: ANISOCYTOSIS 1+; BAND NEUTROPHILS % (MANUAL) 0 % (0-8); BASOPHILS % (MANUAL) 0 % (0-2); EOSINOPHILS % (MANUAL) 0 % (0-3); HYPOCHROMASIA 1+; LYMPHOCYTES % (MANUAL) 37 % (20-45); MACROCYTES 1+; NEUTROPHILS % (MANUAL) 59 % (45-75); PLATELET ESTIMATE ADEQUATE; PLATELET MORPHOLOGY NORMAL; TOTAL CELLS COUNTED 100
[2017-04-12 10:37] LABS: POLYCHROMASIA OCCASIONAL
--- NOTE | 2017-04-12 11:17 | Infectious Diseases Prog Note ---
Assessment/Plan Assessment/Plan A 1. UTI s/p Rx 2. pneumonia with pseudomonas s/p Rx 3. respiratory failure, extubated 4. multiple sclerosis 5. seizure disorder P; Observe off antibiotic Discontinue PICC line at time of discharge Subjective ROS Limited/Unobtainable: Yes Allergies: Coded Allergies: CEFTRIAXONE (Verified Allergy, Unknown, 03/31/17) PENICILLINS (Verified Allergy, Unknown, 03/31/17) SULFA (SULFONAMIDE ANTIBIOTICS) (Verified Allergy, Unknown, 03/31/17) TAZOBACTAM (Verified Allergy, Unknown, 03/31/17) Objective Vital Signs Last 24 Hour Vital Signs Date Time Temp Pulse Resp B/P Pulse Ox O2 Delivery O2 Flow Rate FiO2 04/12/17 08:28 97 Nasal Cannula 2.0 28 04/12/17 08:28 Nasal Cannula 2.0 04/12/17 08:00 98.2 90 20 103/56 97 Nasal Cannula 3.0 04/12/17 04:00 98.9 92 20 98/66 Nasal Cannula 2.0 04/12/17 00:00 98.1 89 18 116/54 94 Nasal Cannula 2.0 04/11/17 20:00 98.2 87 20 110/53 91 Nasal Cannula 2.0 04/11/17 19:51 Nasal Cannula 2.0 04/11/17 19:51 98 Nasal Cannula 2.0 28 04/11/17 16:00 97.7 91 18 110/57 Nasal Cannula 2.0 89 04/11/17 16:00 82 04/11/17 12:00 79 04/11/17 12:00 97.9 84 18 118/59 Nasal Cannula 2.0 88 Height (Feet): 5 Height (Inches): 3.00 Weight (Pounds): 236 General Appearance: no acute distress Respiratory/Chest: other - few rhonchi, O2 by cannula Cardiovascular: normal rate Abdomen: soft, non tender, other - GT feeding Extremities: other - edema, R arm PICC line Skin: other Neurologic/Psychiatric: other - sleeping Laboratory Tests Test 04/12/17 05:00 04/12/17 05:30 Magnesium Level 1.7 mg/dL (1.7-2.5) White Blood Count 3.8 K/UL (4.8-10.8) L Red Blood Count 2.09 M/UL (4.20-5.40) L Hemoglobin 7.4 G/DL (12.0-16.0) L Hematocrit 24.5 % (37.0-47.0) L Mean Corpuscular Volume 118 FL (80-99) H Mean Corpuscular Hemoglobin 35.7 PG (27.0-31.0) H Mean Corpuscular Hemoglobin Concent 30.3 G/DL (32.0-36.0) L Red Cell Distribution Width 17.9 % (11.6-14.8) H Platelet Count 226 K/UL (150-450) Mean Platelet Volume 8.6 FL (6.5-10.1) Neutrophils (%) (Auto) % (45.0-75.0) Lymphocytes (%) (Auto) % (20.0-45.0) Monocytes (%) (Auto) % (1.0-10.0) Eosinophils (%) (Auto) % (0.0-3.0) Basophils (%) (Auto) % (0.0-2.0) Differential Total Cells Counted 100 Neutrophils % (Manual) 59 % (45-75) Lymphocytes % (Manual) 37 % (20-45) Monocytes % (Manual) 4 % (1-10) Eosinophils % (Manual) 0 % (0-3) Basophils % (Manual) 0 % (0-2) Band Neutrophils 0 % (0-8) Platelet Estimate Adequate Platelet Morphology Normal Polychromasia Occasional Hypochromasia 1+ Anisocytosis 1+ Macrocytosis 1+ Sodium Level 145 mEQ/L (135-145) Potassium Level 4.2 mEQ/L (3.4-4.9) Chloride Level 103 mEQ/L (98-107) Carbon Dioxide Level 31 mEQ/L (20-30) H Anion Gap 11 (5-15) Blood Urea Nitrogen 13 mg/dL (7-23) Creatinine 0.3 mg/dL (0.5-0.9) L Estimat Glomerular Filtration Rate mL/min (>60) Glucose Level 90 mg/dL (74-106) Calcium Level 8.6 mg/dL (8.6-10.2) Total Bilirubin < 0.2 mg/dL (0.0-1.2) Aspartate Amino Transf (AST/SGOT) 19 U/L (5-40) Alanine Aminotransferase (ALT/SGPT) < 5 U/L (3-33) Alkaline Phosphatase 45 U/L (35-104) Total Protein 5.8 g/dL (6.6-8.7) L Albumin 2.5 g/dL (3.5-5.2) L Globulin 3.3 g/dL Albumin/Globulin Ratio 0.7 (1.0-2.7) L Current Medications Medications (Trade) Dose Ordered Sig/Reji Route PRN Reason Start Time Stop Time Status Last Admin Dose Admin Acetaminophen (Tylenol) 650 mg Q4H PRN ORAL Mild Pain/Temp > 100.5 04/11/17 20:45 05/11/17 20:44 Ascorbic Acid (Vitamin C) 500 mg TWICE A DAY GT 04/12/17 09:00 05/12/17 08:59 04/12/17 09:07 Chlorhexidine Gluconate (Sheela-Hex 2%) 1 applic DAILY TOPIC 04/12/17 09:00 05/12/17 08:59 04/12/17 09:09 Dextrose (D5W 1000ml) 1,000 ml @ 100 mls/hr Q10H IV 04/11/17 21:45 05/11/17 21:44 04/12/17 08:54 Epoetin Carlos (Procrit (for non ESRD use)) 3,000 units WED-WED-WED SUBQ 04/12/17 21:00 05/12/17 20:59 Lacosamide (Vimpat) 50 mg Q12HR ORAL 04/11/17 22:00 05/11/17 21:59 04/12/17 09:09 Lansoprazole (Prevacid) 30 mg DAILY GT 04/12/17 09:00 05/12/17 08:59 04/12/17 09:07 Levothyroxine Sodium (Synthroid) 50 mcg ACBREAKFAST GT 04/12/17 06:30 05/12/17 06:29 04/12/17 08:53 Rivaroxaban 20 mg 20 mg QPM ORAL 04/12/17 16:30 05/12/17 16:29 Valproic Acid (Depakene) 1,000 mg Q12HR GT 04/11/17 22:00 05/11/17 21:59 04/12/17 09:08 PARDEEP IRVING Apr 12, 2017 11:17
[2017-04-12 12:00] VITALS: BP 100/46
[2017-04-12 16:00] VITALS: BP 106/62
[2017-04-12] MEDS: Xarelto 10mg tab ORAL SCH (17:22)
[2017-04-12 20:00] VITALS: BP 127/64
[2017-04-12] MEDS ORDERED: Epogen (for non ESRD use) SUBQ SCH (21:00)
[2017-04-12] MEDS: Epogen (for non ESRD use) SUBQ SCH (21:32)
--- NOTE | 2017-04-12 23:45 | Progress Note ---
DATE: 04/12/2017 SUBJECTIVE: The patient remains off vent. Stable respiratory parameters noted. No complaints. No apparent shortness of breath. OBJECTIVE: VITAL SIGNS: Blood pressure 103/56, pulse 90, respiratory rate 20, and afebrile. LUNGS: Bilateral breath sounds. HEART: Regular rhythm and rate. Normal S1 and S2. ABDOMEN: Soft. No edema. LABORATORY DATA: White count 3.8, hemoglobin 7.4. Potassium 4.3, BUN 13, and creatinine 0.3. Albumin 3.5. Magnesium 1.7. IMPRESSION: 1. Paroxysmal atrial fibrillation. 2. Sinus node disease. 3. Hypokalemia. 4. Hypomagnesemia, improved. 5. Anemia. 6. Seizure disorder. 7. Status post respiratory failure. 8. Quadriparesis. 9. Healthcare-acquired pneumonia. 10. Resolving hypernatremia. 11. Acute deep venous thrombosis. PLAN: 1. Respiratory therapy. 2. Packed red blood cell transfusions. 3. Antibiotics. 4. Full anticoagulation. 5. Monitor for secondary bleeding complications, improved, but remains high risk. Nick Gilbert M.D. DR: STACIE JOB#: [id number] CC:
[2017-04-13] VITALS: BP 123/70
[2017-04-13 04:00] VITALS: BP 121/76
[2017-04-13 07:33] VITALS: BP 127/48
--- NOTE | 2017-04-13 08:17 | Critical Care Progress Note ---
Assessment/Plan Assessment/Plan IMPRESSION: 1. Respiratory failure . 2. Hypoxemia. 3. Evidence of pulmonary infiltrates consistent with pneumonia. 4. Hypotension. 5. Quadriparesis. 6. Bedbound state. 7. deep venous thrombosis. 8. Gastrostomy tube. 9. Known aspiration. 10. UTI 11. diarrhea 12. thrombocytopenia 13. hypernatremia 14. worsening anemia PLAN stable on oxygen cultures noted transfuse ? per PMD antibiotics reviewed ID noted monitor hemodynamics monitor oxygen needs monitor lytes monitor HH nutrition suction as needed aspiration precautions medications/laboratory data/nursing notes reviewed in detail note reviewed and edited care discussed with RN and RT Critical Care - Subjective Interval Events: noted and reviewed ROS Limited/Unobtainable: Yes EKG Rhythm: Sinus Rhythm I&O: Intake and Output 04/12/17 04/13/17 19:00 07:00 Intake Total 1660 ml 1870 ml Output Total 600 ml 1400 ml Balance 1060 ml 470 ml Intake Free Water 120 ml IV Total 1000 ml 1200 ml Tube Feeding 660 ml 550 ml Output Urine Total 600 ml 1400 ml Critical Care - Objective ET-Tube: 7.5 ET Position: 20 Last 24 Hour Vital Signs Date Time Temp Pulse Resp B/P Pulse Ox O2 Delivery O2 Flow Rate FiO2 04/13/17 07:33 97.7 80 15 127/48 100 Nasal Cannula 04/13/17 04:00 97.0 74 18 121/76 99 Nasal Cannula 99.0 04/13/17 00:00 97.7 72 18 123/70 99 Nasal Cannula 4.0 04/12/17 20:00 97.8 78 18 127/64 98 Nasal Cannula 4.0 04/12/17 19:31 98 Nasal Cannula 2.0 28 04/12/17 19:31 Nasal Cannula 2.0 04/12/17 16:00 97.7 84 20 106/62 98 Nasal Cannula 3.0 04/12/17 12:00 98.1 75 20 100/46 98 Nasal Cannula 3.0 04/12/17 08:28 97 Nasal Cannula 2.0 28 04/12/17 08:28 Nasal Cannula 2.0 Labs: Labs Test 04/10/17 10:45 04/11/17 05:10 04/12/17 05:00 04/12/17 05:30 White Blood Count 4.5 K/UL (4.8-10.8) 4.6 K/UL (4.8-10.8) 3.8 K/UL (4.8-10.8) Red Blood Count 2.31 M/UL (4.20-5.40) 2.14 M/UL (4.20-5.40) 2.09 M/UL (4.20-5.40) Hemoglobin 8.1 G/DL (12.0-16.0) 7.9 G/DL (12.0-16.0) 7.4 G/DL (12.0-16.0) Hematocrit 26.9 % (37.0-47.0) 25.3 % (37.0-47.0) 24.5 % (37.0-47.0) Mean Corpuscular Volume 116 FL (80-99) 118 FL (80-99) 118 FL (80-99) Mean Corpuscular Hemoglobin 35.1 PG (27.0-31.0) 36.7 PG (27.0-31.0) 35.7 PG (27.0-31.0) Mean Corpuscular Hemoglobin Concent 30.2 G/DL (32.0-36.0) 31.1 G/DL (32.0-36.0) 30.3 G/DL (32.0-36.0) Red Cell Distribution Width 17.6 % (11.6-14.8) 17.3 % (11.6-14.8) 17.9 % (11.6-14.8) Platelet Count 235 K/UL (150-450) 217 K/UL (150-450) 226 K/UL (150-450) Mean Platelet Volume 9.5 FL (6.5-10.1) 9.4 FL (6.5-10.1) 8.6 FL (6.5-10.1) Neutrophils (%) (Auto) % (45.0-75.0) % (45.0-75.0) % (45.0-75.0) Lymphocytes (%) (Auto) % (20.0-45.0) % (20.0-45.0) % (20.0-45.0) Monocytes (%) (Auto) % (1.0-10.0) % (1.0-10.0) % (1.0-10.0) Eosinophils (%) (Auto) % (0.0-3.0) % (0.0-3.0) % (0.0-3.0) Basophils (%) (Auto) % (0.0-2.0) % (0.0-2.0) % (0.0-2.0) Differential Total Cells Counted 100 100 100 Neutrophils % (Manual) 60 % (45-75) 68 % (45-75) 59 % (45-75) Lymphocytes % (Manual) 32 % (20-45) 30 % (20-45) 37 % (20-45) Monocytes % (Manual) 7 % (1-10) 2 % (1-10) 4 % (1-10) Eosinophils % (Manual) 1 % (0-3) 0 % (0-3) 0 % (0-3) Basophils % (Manual) 0 % (0-2) 0 % (0-2) 0 % (0-2) Band Neutrophils 0 % (0-8) 0 % (0-8) 0 % (0-8) Nucleated Red Blood Cells 1 /100 WBC 1 /100 WBC Platelet Estimate Adequate Adequate Adequate Platelet Morphology Normal Normal Normal Polychromasia 1+ 1+ Occasional Hypochromasia 3+ 1+ 1+ Anisocytosis 1+ 1+ 1+ Macrocytosis 2+ 1+ 1+ Sodium Level 145 mEQ/L (135-145) 148 mEQ/L (135-145) 145 mEQ/L (135-145) Potassium Level 3.9 mEQ/L (3.4-4.9) 4.0 mEQ/L (3.4-4.9) 4.2 mEQ/L (3.4-4.9) Chloride Level 106 mEQ/L (98-107) 105 mEQ/L (98-107) 103 mEQ/L (98-107) Carbon Dioxide Level 32 mEQ/L (20-30) 32 mEQ/L (20-30) 31 mEQ/L (20-30) Anion Gap 7 (5-15) 11 (5-15) 11 (5-15) Blood Urea Nitrogen 9 mg/dL (7-23) 12 mg/dL (7-23) 13 mg/dL (7-23) Creatinine 0.3 mg/dL (0.5-0.9) 0.3 mg/dL (0.5-0.9) 0.3 mg/dL (0.5-0.9) Estimat Glomerular Filtration Rate mL/min (>60) mL/min (>60) mL/min (>60) Glucose Level 104 mg/dL (74-106) 89 mg/dL (74-106) 90 mg/dL (74-106) Calcium Level 8.5 mg/dL (8.6-10.2) 8.6 mg/dL (8.6-10.2) 8.6 mg/dL (8.6-10.2) Magnesium Level 1.8 mg/dL (1.7-2.5) 1.7 mg/dL (1.7-2.5) Total Bilirubin < 0.2 mg/dL (0.0-1.2) 0.2 mg/dL (0.0-1.2) < 0.2 mg/dL (0.0-1.2) Aspartate Amino Transf (AST/SGOT) 20 U/L (5-40) 19 U/L (5-40) 19 U/L (5-40) Alanine Aminotransferase (ALT/SGPT) 5 U/L (3-33) < 5 U/L (3-33) < 5 U/L (3-33) Alkaline Phosphatase 52 U/L (35-104) 52 U/L (35-104) 45 U/L (35-104) Pro-B-Type Natriuretic Peptide 1001 pg/mL (0-125) Total Protein 5.6 g/dL (6.6-8.7) 5.7 g/dL (6.6-8.7) 5.8 g/dL (6.6-8.7) Albumin 2.2 g/dL (3.5-5.2) 2.5 g/dL (3.5-5.2) 2.5 g/dL (3.5-5.2) Globulin 3.4 g/dL 3.2 g/dL 3.3 g/dL Albumin/Globulin Ratio 0.6 (1.0-2.7) 0.7 (1.0-2.7) 0.7 (1.0-2.7) Iron Level 73 ug/dL (37-145) Total Iron Binding Capacity 198 ug/dL (250-400) Percent Iron Saturation 37 % (15-50) Unsaturated Iron Binding 125 ug/dL (112-346) Ferritin 453 ng/mL (13-150) Objective: GENERAL: The patient is a well-developed female, on oxygen HEENT: Negative. sluggish pupils NECK: Supple. no JVD LUNGS: Moderate breath sounds. no rhonchi noted. no wheeze; symmetric; no change CARDIAC: S1 and S2. Regular rate and rhythm.without MRG ABDOMEN: Soft and nontender. The patient has a G-tube in place . no HSM Extremities: No cyanosis or clubbing. noted contractures. Quadriparesis. withdrawn skin noted reviewed and edited Accucheck: 195 SANCHEZ NAVARRETE Apr 13, 2017 08:17
[2017-04-13] MEDS: Valproic Acid 250mg/5ml Liquid GT SCH ×2 (08:23→21:38)
[2017-04-13] MEDS: Lacosamide 50mg tablet ORAL SCH ×2 (08:23→21:37)
[2017-04-13] MEDS: Ascorbic Acid 500mg tab GT SCH ×2 (08:23→18:16)
[2017-04-13 11:13] VITALS: BP 100/43
--- NOTE | 2017-04-13 12:43 | Infectious Diseases Prog Note ---
"Assessment/Plan Assessment/Plan antibiotics : none A 1. protues | e.coli UTI s/p rx 2. pseudomonas pneumonia s/p rx 3. respiratory failure 4. multiple sclerosis 5. seizure disorder P 1. continue off antibiotics Subjective ROS Limited/Unobtainable: Yes Allergies: Coded Allergies: CEFTRIAXONE (Verified Allergy, Unknown, 03/31/17) PENICILLINS (Verified Allergy, Unknown, 03/31/17) SULFA (SULFONAMIDE ANTIBIOTICS) (Verified Allergy, Unknown, 03/31/17) TAZOBACTAM (Verified Allergy, Unknown, 03/31/17) Objective Vital Signs Last 24 Hour Vital Signs Date Time Temp Pulse Resp B/P Pulse Ox O2 Delivery O2 Flow Rate FiO2 04/13/17 11:13 97.7 82 16 100/43 99 Nasal Cannula 04/13/17 07:33 97.7 80 15 127/48 100 Nasal Cannula 04/13/17 06:42 Nasal Cannula 2.0 04/13/17 06:42 98 Nasal Cannula 2.0 04/13/17 04:00 97.0 74 18 121/76 99 Nasal Cannula 99.0 04/13/17 00:00 97.7 72 18 123/70 99 Nasal Cannula 4.0 04/12/17 20:00 97.8 78 18 127/64 98 Nasal Cannula 4.0 04/12/17 19:31 98 Nasal Cannula 2.0 28 04/12/17 19:31 Nasal Cannula 2.0 04/12/17 16:00 97.7 84 20 106/62 98 Nasal Cannula 3.0 Height (Feet): 5 Height (Inches): 3.00 Weight (Pounds): 237 Respiratory/Chest: lungs clear Cardiovascular: normal rate, regular rhythm, no gallop/murmur Abdomen: soft, non tender, other - GT Extremities: other - + edema, right arm PICC KAMRAN GUTIERREZ Apr 13, 2017 12:43"
[2017-04-13 15:40] VITALS: BP 111/47
[2017-04-13] MEDS ORDERED: Sterile Water Irrig 1000ml IRRIG ONE (15:43)
[2017-04-13] MEDS: Xarelto 10mg tab ORAL SCH (17:01)
[2017-04-13] MEDS: Milk of Magnesia 30ml Ud ORAL PRN (18:16)
[2017-04-13] MEDS: Docusate 100mg/10ml Liq NG SCH (18:16)
[2017-04-13 20:00] VITALS: BP 102/71
[2017-04-13] MEDS: Dyna-Hex 2% Top Sol 8oz TOPIC SCH (21:38)
--- NOTE | 2017-04-13 22:15 | Progress Note ---
DATE: 04/13/2017 CARDIOLOGY PROGRESS NOTE: SUBJECTIVE: The patient was evaluated, status improving, and continues on antibiotics. OBJECTIVE: VITAL SIGNS: Blood pressure is 127/48, pulse 80, and respiratory rate 15. LUNGS: Coarse breath sounds. No wheezing. HEART: Regular rhythm and rate. Normal S1 and S2. ABDOMEN: Soft. EXTREMITIES: Trace edema. LABORATORY DATA: No new laboratories today. IMPRESSION: 1. Paroxysmal atrial fibrillation. 2. Sinus node disease. 3. Status post sepsis with shock. 4. Status post respiratory failure. 5. Quadriparesis. 6. Deep venous thrombosis. 7. Conduction system disease. 8. Anemia. PLAN: 1. Recheck laboratories. 2. No amiodarone. 3. No beta-blockade. 4. Monitor volume status. 5. Continue antibiotics. 6. Respiratory hygiene. 7. Remains high risk. Nick Gilbert M.D. DR: Lauren JOB#: [id number] CC:
[2017-04-14] VITALS: BP 117/77
--- NOTE | 2017-04-14 00:58 | Wound Nurse Progress Note ---
Wound RN Progress Note Wound Consult Reassesses this Pt. Sacral stage II resolved. Will cont to monitor this Pt. Recommendation. -Local wound care as ordered. -Turn and reposition. -Keep clean and dry. -Optimize nutrition. -low air loss SPR mattress. -Offload affected area. -Avoid shear and friction. -Assess and notify MD for any changes of condition in skin noted. MICHELLE RAPP RN Apr 14, 2017 00:58
[2017-04-14 04:00] VITALS: BP 119/71
[2017-04-14 07:19] LABS: MEAN CORPUSCULAR HEMOGLOBIN 35.4 PG (27.0-31.0); MEAN CORPUSCULAR HGB CONC 30.5 G/DL (32.0-36.0); MEAN CORPUSCULAR VOLUME 116 FL (80-99); MEAN PLATELET VOLUME 8.2 FL (6.5-10.1); PLATELET COUNT 207 K/UL (150-450); RED BLOOD COUNT 2.23 M/UL (4.20-5.40); RED CELL DISTRIBUTION WIDTH 17.4 % (11.6-14.8); WHITE BLOOD COUNT 2.5 K/UL (4.8-10.8)
[2017-04-14 08:00] VITALS: BP 93/72
[2017-04-14 08:19] LABS: ALANINE AMINOTRANSFERASE 5 U/L (3-33); ALBUMIN/GLOBULIN RATIO 0.7 (1.0-2.7); ANION GAP 9 (5-15); ASPARTATE AMINO TRANSFERASE 17 U/L (5-40); CALCIUM 8.8 mg/dL (8.6-10.2); CARBON DIOXIDE 33 mEQ/L (20-30); CHLORIDE 99 mEQ/L (98-107); CREATININE 0.2 mg/dL (0.5-0.9); HEMOLYSIS 4; MAGNESIUM 2.1 mg/dL (1.7-2.5); POTASSIUM 4.2 mEQ/L (3.4-4.9); SODIUM 141 mEQ/L (135-145)
[2017-04-14] MEDS: Docusate 100mg/10ml Liq NG SCH ×2 (08:50→17:45)
[2017-04-14] MEDS: Lacosamide 50mg tablet ORAL SCH ×2 (08:50→21:33)
[2017-04-14] MEDS: Ascorbic Acid 500mg tab GT SCH ×2 (08:50→17:45)
[2017-04-14] MEDS: Valproic Acid 250mg/5ml Liquid GT SCH ×2 (08:50→21:33)
--- NOTE | 2017-04-14 09:30 | Critical Care Progress Note ---
Assessment/Plan Assessment/Plan IMPRESSION: 1. Respiratory failure . 2. Hypoxemia. 3. Evidence of pulmonary infiltrates consistent with pneumonia. 4. Hypotension. 5. Quadriparesis. 6. Bedbound state. 7. deep venous thrombosis. 8. Gastrostomy tube. 9. Known aspiration. 10. UTI 11. diarrhea 12. thrombocytopenia 13. hypernatremia 14. worsening anemia PLAN stable on oxygen cultures noted transfuse ? per PMD consider heme evaluation antibiotics reviewed ID noted oxygen needs low monitor lytes monitor HH nutrition suction as needed aspiration precautions medications/laboratory data/nursing notes reviewed in detail note reviewed and edited care discussed with RN and RT Critical Care - Subjective ROS Limited/Unobtainable: Yes EKG Rhythm: Sinus Rhythm I&O: Intake and Output 04/13/17 04/14/17 19:00 07:00 Intake Total 1860 ml 1870 ml Output Total 1800 ml 1800 ml Balance 60 ml 70 ml Intake Free Water 100 ml 120 ml IV Total 1100 ml 1200 ml Tube Feeding 660 ml 550 ml Output Urine Total 1800 ml 1800 ml Critical Care - Objective ET-Tube: 7.5 ET Position: 20 Last 24 Hour Vital Signs Date Time Temp Pulse Resp B/P Pulse Ox O2 Delivery O2 Flow Rate FiO2 04/14/17 08:00 97.9 87 20 93/72 97 Nasal Cannula 4.0 04/14/17 07:55 Nasal Cannula 3.0 32 04/14/17 07:54 100 Nasal Cannula 3.0 32 04/14/17 04:00 97.7 82 17 119/71 98 Nasal Cannula 2.0 04/14/17 00:00 98.6 88 17 117/77 98 Nasal Cannula 2.0 04/13/17 20:00 98.1 96 19 102/71 97 Nasal Cannula 2.0 04/13/17 19:05 Nasal Cannula 2.0 28 04/13/17 19:05 97 Nasal Cannula 2.0 28 04/13/17 15:40 97.3 80 18 111/47 99 Room Air 04/13/17 11:13 97.7 82 16 100/43 99 Nasal Cannula Labs: Labs Test 04/12/17 05:00 04/12/17 05:30 04/14/17 06:00 Magnesium Level 1.7 mg/dL (1.7-2.5) 2.1 mg/dL (1.7-2.5) White Blood Count 3.8 K/UL (4.8-10.8) 2.5 K/UL (4.8-10.8) Red Blood Count 2.09 M/UL (4.20-5.40) 2.23 M/UL (4.20-5.40) Hemoglobin 7.4 G/DL (12.0-16.0) 7.9 G/DL (12.0-16.0) Hematocrit 24.5 % (37.0-47.0) 25.8 % (37.0-47.0) Mean Corpuscular Volume 118 FL (80-99) 116 FL (80-99) Mean Corpuscular Hemoglobin 35.7 PG (27.0-31.0) 35.4 PG (27.0-31.0) Mean Corpuscular Hemoglobin Concent 30.3 G/DL (32.0-36.0) 30.5 G/DL (32.0-36.0) Red Cell Distribution Width 17.9 % (11.6-14.8) 17.4 % (11.6-14.8) Platelet Count 226 K/UL (150-450) 207 K/UL (150-450) Mean Platelet Volume 8.6 FL (6.5-10.1) 8.2 FL (6.5-10.1) Neutrophils (%) (Auto) % (45.0-75.0) % (45.0-75.0) Lymphocytes (%) (Auto) % (20.0-45.0) % (20.0-45.0) Monocytes (%) (Auto) % (1.0-10.0) % (1.0-10.0) Eosinophils (%) (Auto) % (0.0-3.0) % (0.0-3.0) Basophils (%) (Auto) % (0.0-2.0) % (0.0-2.0) Differential Total Cells Counted 100 Neutrophils % (Manual) 59 % (45-75) Lymphocytes % (Manual) 37 % (20-45) Monocytes % (Manual) 4 % (1-10) Eosinophils % (Manual) 0 % (0-3) Basophils % (Manual) 0 % (0-2) Band Neutrophils 0 % (0-8) Platelet Estimate Adequate Platelet Morphology Normal Polychromasia Occasional Hypochromasia 1+ Anisocytosis 1+ Macrocytosis 1+ Sodium Level 145 mEQ/L (135-145) 141 mEQ/L (135-145) Potassium Level 4.2 mEQ/L (3.4-4.9) 4.2 mEQ/L (3.4-4.9) Chloride Level 103 mEQ/L (98-107) 99 mEQ/L (98-107) Carbon Dioxide Level 31 mEQ/L (20-30) 33 mEQ/L (20-30) Anion Gap 11 (5-15) 9 (5-15) Blood Urea Nitrogen 13 mg/dL (7-23) 8 mg/dL (7-23) Creatinine 0.3 mg/dL (0.5-0.9) 0.2 mg/dL (0.5-0.9) Estimat Glomerular Filtration Rate mL/min (>60) mL/min (>60) Glucose Level 90 mg/dL (74-106) 104 mg/dL (74-106) Calcium Level 8.6 mg/dL (8.6-10.2) 8.8 mg/dL (8.6-10.2) Total Bilirubin < 0.2 mg/dL (0.0-1.2) < 0.2 mg/dL (0.0-1.2) Aspartate Amino Transf (AST/SGOT) 19 U/L (5-40) 17 U/L (5-40) Alanine Aminotransferase (ALT/SGPT) < 5 U/L (3-33) 5 U/L (3-33) Alkaline Phosphatase 45 U/L (35-104) 45 U/L (35-104) Total Protein 5.8 g/dL (6.6-8.7) 6.0 g/dL (6.6-8.7) Albumin 2.5 g/dL (3.5-5.2) 2.5 g/dL (3.5-5.2) Globulin 3.3 g/dL 3.5 g/dL Albumin/Globulin Ratio 0.7 (1.0-2.7) 0.7 (1.0-2.7) Pro-B-Type Natriuretic Peptide 879 pg/mL (0-125) Objective: GENERAL: The patient is a well-developed female, on oxygen HEENT: Negative. sluggish pupils NECK: Supple. no JVD LUNGS: Moderate breath sounds. no rhonchi noted. no wheeze; symmetric; no change CARDIAC: S1 and S2. Regular rate and rhythm.without MRG ABDOMEN: Soft and nontender. The patient has a G-tube in place . no HSM Extremities: No cyanosis or clubbing. noted contractures. Quadriparesis. withdrawn skin noted reviewed and edited Accucheck: 195 SANCHEZ NAVARRETE Apr 14, 2017 09:30
[2017-04-14 09:43] LABS: ANISOCYTOSIS 1+; BAND NEUTROPHILS % (MANUAL) 0 % (0-8); BASOPHILS % (MANUAL) 0 % (0-2); EOSINOPHILS % (MANUAL) 1 % (0-3); HYPOCHROMASIA 1+; LYMPHOCYTES % (MANUAL) 30 % (20-45); MACROCYTES 1+; NEUTROPHILS % (MANUAL) 58 % (45-75); PLATELET ESTIMATE ADEQUATE; PLATELET MORPHOLOGY NORMAL; POLYCHROMASIA 1+; TOTAL CELLS COUNTED 100
--- NOTE | 2017-04-14 11:42 | Infectious Diseases Prog Note ---
"Assessment/Plan Assessment/Plan antibiotics : none A 1. protues | e.coli UTI s/p rx 2. pseudomonas pneumonia s/p rx 3. respiratory failure 4. multiple sclerosis 5. seizure disorder P 1. continue off antibiotics Subjective ROS Limited/Unobtainable: Yes Allergies: Coded Allergies: CEFTRIAXONE (Verified Allergy, Unknown, 03/31/17) PENICILLINS (Verified Allergy, Unknown, 03/31/17) SULFA (SULFONAMIDE ANTIBIOTICS) (Verified Allergy, Unknown, 03/31/17) TAZOBACTAM (Verified Allergy, Unknown, 03/31/17) Objective Vital Signs Last 24 Hour Vital Signs Date Time Temp Pulse Resp B/P Pulse Ox O2 Delivery O2 Flow Rate FiO2 04/14/17 08:00 97.9 87 20 93/72 97 Nasal Cannula 4.0 04/14/17 07:55 Nasal Cannula 3.0 32 04/14/17 07:54 100 Nasal Cannula 3.0 32 04/14/17 04:00 97.7 82 17 119/71 98 Nasal Cannula 2.0 04/14/17 00:00 98.6 88 17 117/77 98 Nasal Cannula 2.0 04/13/17 20:00 98.1 96 19 102/71 97 Nasal Cannula 2.0 04/13/17 19:05 Nasal Cannula 2.0 28 04/13/17 19:05 97 Nasal Cannula 2.0 28 04/13/17 15:40 97.3 80 18 111/47 99 Room Air Height (Feet): 5 Height (Inches): 3.00 Weight (Pounds): 237 Respiratory/Chest: lungs clear Cardiovascular: normal rate, regular rhythm, no gallop/murmur Abdomen: soft, non tender Extremities: other - + edema, right arm PICC Laboratory Tests Test 04/14/17 06:00 White Blood Count 2.5 K/UL (4.8-10.8) L Red Blood Count 2.23 M/UL (4.20-5.40) L Hemoglobin 7.9 G/DL (12.0-16.0) L Hematocrit 25.8 % (37.0-47.0) L Mean Corpuscular Volume 116 FL (80-99) H Mean Corpuscular Hemoglobin 35.4 PG (27.0-31.0) H Mean Corpuscular Hemoglobin Concent 30.5 G/DL (32.0-36.0) L Red Cell Distribution Width 17.4 % (11.6-14.8) H Platelet Count 207 K/UL (150-450) Mean Platelet Volume 8.2 FL (6.5-10.1) Neutrophils (%) (Auto) % (45.0-75.0) Lymphocytes (%) (Auto) % (20.0-45.0) Monocytes (%) (Auto) % (1.0-10.0) Eosinophils (%) (Auto) % (0.0-3.0) Basophils (%) (Auto) % (0.0-2.0) Differential Total Cells Counted 100 Neutrophils % (Manual) 58 % (45-75) Lymphocytes % (Manual) 30 % (20-45) Monocytes % (Manual) 11 % (1-10) H Eosinophils % (Manual) 1 % (0-3) Basophils % (Manual) 0 % (0-2) Band Neutrophils 0 % (0-8) Platelet Estimate Adequate Platelet Morphology Normal Polychromasia 1+ Hypochromasia 1+ Anisocytosis 1+ Macrocytosis 1+ Sodium Level 141 mEQ/L (135-145) Potassium Level 4.2 mEQ/L (3.4-4.9) Chloride Level 99 mEQ/L (98-107) Carbon Dioxide Level 33 mEQ/L (20-30) H Anion Gap 9 (5-15) Blood Urea Nitrogen 8 mg/dL (7-23) Creatinine 0.2 mg/dL (0.5-0.9) L Estimat Glomerular Filtration Rate mL/min (>60) Glucose Level 104 mg/dL (74-106) Calcium Level 8.8 mg/dL (8.6-10.2) Magnesium Level 2.1 mg/dL (1.7-2.5) Total Bilirubin < 0.2 mg/dL (0.0-1.2) Aspartate Amino Transf (AST/SGOT) 17 U/L (5-40) Alanine Aminotransferase (ALT/SGPT) 5 U/L (3-33) Alkaline Phosphatase 45 U/L (35-104) Pro-B-Type Natriuretic Peptide 879 pg/mL (0-125) H Total Protein 6.0 g/dL (6.6-8.7) L Albumin 2.5 g/dL (3.5-5.2) L Globulin 3.5 g/dL Albumin/Globulin Ratio 0.7 (1.0-2.7) L KAMRAN GUTIERREZ Apr 14, 2017 11:42"
[2017-04-14 12:00] VITALS: BP 110/60
[2017-04-14 12:08] LABS: OTHERS PATHOLOGIST COMMENT
[2017-04-14 16:00] VITALS: BP 99/48
[2017-04-14] MEDS: Xarelto 10mg tab ORAL SCH (17:45)
[2017-04-14] MEDS: Milk of Magnesia 30ml Ud ORAL PRN (17:45)
[2017-04-14 20:00] VITALS: BP 135/61
--- NOTE | 2017-04-14 21:30 | Progress Note ---
DATE: 04/14/2017 SUBJECTIVE: The patient is off antibiotics. She is in no respiratory distress. OBJECTIVE: VITAL SIGNS: Vitals reveal low range blood pressure today is 93/72, heart rate 87, and respiratory rate 20. She is afebrile. Saturation on four liters is 98%. LUNGS: Coarse breath sounds with rhonchi. HEART: Regular rhythm and rate. Normal S1 and S2. ABDOMEN: Soft. Trace edema. LABORATORY DATA: White count 2.5, hemoglobin 7.9, and platelets 116,000. Potassium 4.2, BUN 8, and creatinine 0.2. Pro-natriuretic peptide is 879. Albumin 2.5. Magnesium 2.1. IMPRESSION: 1. Pancytopenia. 2. Paroxysmal atrial fibrillation. 3. Conduction system disease. 4. Sinus node disease. 5. Recovered shock due to sepsis. 6. Recovering renal failure. 7. Severe protein-calorie malnutrition. PLAN: 1. Transfuse for hemoglobin less than 8 g. 2. Reassess medication regimen for bone marrow suppression. Now off antibiotics which may have been an associated issue. 3. Cardioembolic prophylaxis and management of DVT with rivaroxaban. This may have to be discontinued in view of pancytopenia. 4. Reassess use of current psych drugs. Nick Gilbert M.D. : DAXA JOB#: [id number] CC:
[2017-04-14] MEDS: Epogen (for non ESRD use) SUBQ SCH (21:31)
[2017-04-14] MEDS: Dyna-Hex 2% Top Sol 8oz TOPIC SCH (21:31)
[2017-04-15] VITALS (7 sets, daily range): BP systolic 101–135; BP diastolic 46–67
[2017-04-15] MEDS: Lacosamide 50mg tablet ORAL SCH ×2 (08:57→21:01)
[2017-04-15] MEDS: Docusate 100mg/10ml Liq NG SCH ×2 (08:57→18:00)
[2017-04-15] MEDS: Valproic Acid 250mg/5ml Liquid GT SCH ×2 (08:57→21:02)
[2017-04-15] MEDS: Ascorbic Acid 500mg tab GT SCH ×2 (08:57→19:04)
--- NOTE | 2017-04-15 10:27 | Infectious Diseases Prog Note ---
Assessment/Plan Assessment/Plan A 1. UTI s/p Rx 2. pneumonia with pseudomonas s/p Rx 3. respiratory failure, extubated 4. multiple sclerosis 5. seizure disorder P; Observe off antibiotic Discontinue PICC line at time of discharge Subjective ROS Limited/Unobtainable: Yes Allergies: Coded Allergies: CEFTRIAXONE (Verified Allergy, Unknown, 03/31/17) PENICILLINS (Verified Allergy, Unknown, 03/31/17) SULFA (SULFONAMIDE ANTIBIOTICS) (Verified Allergy, Unknown, 03/31/17) TAZOBACTAM (Verified Allergy, Unknown, 03/31/17) Objective Vital Signs Last 24 Hour Vital Signs Date Time Temp Pulse Resp B/P Pulse Ox O2 Delivery O2 Flow Rate FiO2 04/15/17 08:15 97.7 83 23 135/67 97 Nasal Cannula 04/15/17 08:12 97 Nasal Cannula 3.0 32 04/15/17 08:12 Nasal Cannula 3.0 32 04/15/17 03:50 98.1 92 15 124/49 99 Nasal Cannula 04/15/17 00:00 98.2 89 17 107/46 96 Nasal Cannula 04/14/17 20:00 98.1 91 15 135/61 97 Nasal Cannula 04/14/17 19:30 98 Nasal Cannula 3.0 32 04/14/17 19:30 Nasal Cannula 3.0 32 04/14/17 16:00 98.1 85 20 99/48 98 Nasal Cannula 3.0 04/14/17 12:00 97.9 82 20 110/60 98 Nasal Cannula 4.0 Height (Feet): 5 Height (Inches): 3.00 Weight (Pounds): 237 General Appearance: no acute distress HEENT: mucous membranes moist Respiratory/Chest: lungs clear Cardiovascular: normal rate Abdomen: soft, non tender Extremities: other - edema, R arm PICC line Current Medications Medications (Trade) Dose Ordered Sig/Reji Route PRN Reason Start Time Stop Time Status Last Admin Dose Admin Acetaminophen (Tylenol) 650 mg Q4H PRN ORAL Mild Pain/Temp > 100.5 04/11/17 20:45 05/11/17 20:44 Ascorbic Acid (Vitamin C) 500 mg TWICE A DAY GT 04/12/17 09:00 05/12/17 08:59 04/15/17 08:57 Chlorhexidine Gluconate (Sheela-Hex 2%) 1 applic QHS TOPIC 04/13/17 21:00 05/13/17 20:59 04/14/17 21:31 Dextrose (D5W 1000ml) 1,000 ml @ 100 mls/hr Q10H IV 04/11/17 21:45 05/11/17 21:44 04/15/17 06:26 Docusate Sodium (Colace) 100 mg TWICE A DAY NG 04/13/17 18:00 05/13/17 17:59 04/15/17 08:57 Epoetin Carlos (Procrit (for non ESRD use)) 3,000 units WED-WED-WED SUBQ 04/12/17 21:00 05/12/17 20:59 04/14/17 21:31 Lacosamide (Vimpat) 50 mg Q12HR ORAL 04/11/17 22:00 05/11/17 21:59 04/15/17 08:57 Lansoprazole (Prevacid) 30 mg DAILY GT 04/12/17 09:00 05/12/17 08:59 04/15/17 08:57 Levothyroxine Sodium (Synthroid) 50 mcg ACBREAKFAST GT 04/12/17 06:30 05/12/17 06:29 04/15/17 06:26 Magnesium Hydroxide (Mom) 30 ml HSPRN PRN ORAL Constipation 04/13/17 15:30 05/13/17 15:29 04/14/17 17:45 Rivaroxaban 20 mg 20 mg QPM ORAL 04/12/17 16:30 05/12/17 16:29 04/14/17 17:45 Valproic Acid (Depakene) 1,000 mg Q12HR GT 04/11/17 22:00 05/11/17 21:59 04/15/17 08:57 PARDEEP IRVING Apr 15, 2017 10:27
[2017-04-15 11:21] LABS: MEAN CORPUSCULAR HEMOGLOBIN 34.5 PG (27.0-31.0); MEAN CORPUSCULAR HGB CONC 31.2 G/DL (32.0-36.0); MEAN CORPUSCULAR VOLUME 111 FL (80-99); MEAN PLATELET VOLUME 8.1 FL (6.5-10.1); PLATELET COUNT 201 K/UL (150-450); RED BLOOD COUNT 2.72 M/UL (4.20-5.40); RED CELL DISTRIBUTION WIDTH 19.1 % (11.6-14.8); WHITE BLOOD COUNT 3.6 K/UL (4.8-10.8)
[2017-04-15 12:18] LABS: ALANINE AMINOTRANSFERASE 5 U/L (3-33); ALBUMIN/GLOBULIN RATIO 0.6 (1.0-2.7); ANION GAP 9 (5-15); ASPARTATE AMINO TRANSFERASE 17 U/L (5-40); CALCIUM 8.7 mg/dL (8.6-10.2); CARBON DIOXIDE 32 mEQ/L (20-30); CHLORIDE 100 mEQ/L (98-107); CREATININE 0.3 mg/dL (0.5-0.9); HEMOLYSIS 0; POTASSIUM 3.6 mEQ/L (3.4-4.9); SODIUM 141 mEQ/L (135-145); TOTAL PROTEIN 6.3 g/dL (6.6-8.7)
--- NOTE | 2017-04-15 13:26 | Critical Care Progress Note ---
Assessment/Plan Assessment/Plan IMPRESSION: 1. Respiratory failure . 2. Hypoxemia. 3. Evidence of pulmonary infiltrates consistent with pneumonia. 4. Hypotension. 5. Quadriparesis. 6. Bedbound state. 7. deep venous thrombosis. 8. Gastrostomy tube. 9. Known aspiration. 10. UTI 11. diarrhea 12. thrombocytopenia 13. hypernatremia 14. worsening anemia PLAN stable on oxygen no distress or congestion consider heme evaluation antibiotics reviewed ID noted oxygen needs low monitor lytes monitor HH nutrition aspiration precautions medications/laboratory data/nursing notes reviewed in detail note reviewed and edited care discussed with RN and RT Critical Care - Subjective Interval Events: no acute distress ROS Limited/Unobtainable: Yes EKG Rhythm: Sinus Rhythm I&O: Intake and Output 04/14/17 04/15/17 19:00 07:00 Intake Total 1880 ml 1640 ml Output Total 2100 ml 1500 ml Balance -220 ml 140 ml Intake Free Water 120 ml 180 ml IV Total 1100 ml 800 ml Tube Feeding 660 ml 660 ml Output Urine Total 2100 ml 1500 ml Critical Care - Objective ET-Tube: 7.5 ET Position: 20 Last 24 Hour Vital Signs Date Time Temp Pulse Resp B/P Pulse Ox O2 Delivery O2 Flow Rate FiO2 04/15/17 11:51 97.7 91 19 128/65 97 Nasal Cannula 04/15/17 08:15 97.7 83 23 135/67 97 Nasal Cannula 04/15/17 08:12 97 Nasal Cannula 3.0 32 04/15/17 08:12 Nasal Cannula 3.0 32 04/15/17 03:50 98.1 92 15 124/49 99 Nasal Cannula 04/15/17 00:00 98.2 89 17 107/46 96 Nasal Cannula 04/14/17 20:00 98.1 91 15 135/61 97 Nasal Cannula 04/14/17 19:30 98 Nasal Cannula 3.0 32 04/14/17 19:30 Nasal Cannula 3.0 32 04/14/17 16:00 98.1 85 20 99/48 98 Nasal Cannula 3.0 Labs: Labs Test 04/14/17 06:00 04/15/17 10:30 White Blood Count 2.5 K/UL (4.8-10.8) 3.6 K/UL (4.8-10.8) Red Blood Count 2.23 M/UL (4.20-5.40) 2.72 M/UL (4.20-5.40) Hemoglobin 7.9 G/DL (12.0-16.0) 9.4 G/DL (12.0-16.0) Hematocrit 25.8 % (37.0-47.0) 30.2 % (37.0-47.0) Mean Corpuscular Volume 116 FL (80-99) 111 FL (80-99) Mean Corpuscular Hemoglobin 35.4 PG (27.0-31.0) 34.5 PG (27.0-31.0) Mean Corpuscular Hemoglobin Concent 30.5 G/DL (32.0-36.0) 31.2 G/DL (32.0-36.0) Red Cell Distribution Width 17.4 % (11.6-14.8) 19.1 % (11.6-14.8) Platelet Count 207 K/UL (150-450) 201 K/UL (150-450) Mean Platelet Volume 8.2 FL (6.5-10.1) 8.1 FL (6.5-10.1) Neutrophils (%) (Auto) % (45.0-75.0) % (45.0-75.0) Lymphocytes (%) (Auto) % (20.0-45.0) % (20.0-45.0) Monocytes (%) (Auto) % (1.0-10.0) % (1.0-10.0) Eosinophils (%) (Auto) % (0.0-3.0) % (0.0-3.0) Basophils (%) (Auto) % (0.0-2.0) % (0.0-2.0) Differential Total Cells Counted 100 Neutrophils % (Manual) 58 % (45-75) Lymphocytes % (Manual) 30 % (20-45) Monocytes % (Manual) 11 % (1-10) Eosinophils % (Manual) 1 % (0-3) Basophils % (Manual) 0 % (0-2) Band Neutrophils 0 % (0-8) Other Cell Type Pathologist comment Platelet Estimate Adequate Platelet Morphology Normal Polychromasia 1+ Hypochromasia 1+ Anisocytosis 1+ Macrocytosis 1+ Sodium Level 141 mEQ/L (135-145) 141 mEQ/L (135-145) Potassium Level 4.2 mEQ/L (3.4-4.9) 3.6 mEQ/L (3.4-4.9) Chloride Level 99 mEQ/L (98-107) 100 mEQ/L (98-107) Carbon Dioxide Level 33 mEQ/L (20-30) 32 mEQ/L (20-30) Anion Gap 9 (5-15) 9 (5-15) Blood Urea Nitrogen 8 mg/dL (7-23) 8 mg/dL (7-23) Creatinine 0.2 mg/dL (0.5-0.9) 0.3 mg/dL (0.5-0.9) Estimat Glomerular Filtration Rate mL/min (>60) mL/min (>60) Glucose Level 104 mg/dL (74-106) 113 mg/dL (74-106) Calcium Level 8.8 mg/dL (8.6-10.2) 8.7 mg/dL (8.6-10.2) Magnesium Level 2.1 mg/dL (1.7-2.5) Total Bilirubin < 0.2 mg/dL (0.0-1.2) 0.2 mg/dL (0.0-1.2) Aspartate Amino Transf (AST/SGOT) 17 U/L (5-40) 17 U/L (5-40) Alanine Aminotransferase (ALT/SGPT) 5 U/L (3-33) 5 U/L (3-33) Alkaline Phosphatase 45 U/L (35-104) 46 U/L (35-104) Pro-B-Type Natriuretic Peptide 879 pg/mL (0-125) 756 pg/mL (0-125) Total Protein 6.0 g/dL (6.6-8.7) 6.3 g/dL (6.6-8.7) Albumin 2.5 g/dL (3.5-5.2) 2.5 g/dL (3.5-5.2) Globulin 3.5 g/dL 3.8 g/dL Albumin/Globulin Ratio 0.7 (1.0-2.7) 0.6 (1.0-2.7) Objective: GENERAL: The patient is a well-developed female, on oxygen HEENT: Negative. sluggish pupils NECK: Supple. no JVD LUNGS: Moderate breath sounds. no rhonchi noted. no wheeze; symmetric; no change CARDIAC: S1 and S2. Regular rate and rhythm.without MRG ABDOMEN: Soft and nontender. The patient has a G-tube in place . no HSM Extremities: No cyanosis or clubbing. noted contractures. Quadriparesis. withdrawn skin noted reviewed and edited Accucheck: 195 SANCHEZ NAVARRETE Apr 15, 2017 13:26
[2017-04-15 13:28] LABS: ANISOCYTOSIS 2+; BAND NEUTROPHILS % (MANUAL) 0 % (0-8); BASOPHILS % (MANUAL) 0 % (0-2); EOSINOPHILS % (MANUAL) 0 % (0-3); HYPOCHROMASIA 2+; LYMPHOCYTES % (MANUAL) 35 % (20-45); MACROCYTES 2+; MYELOCYTES % 1 % (0-0); NEUTROPHILS % (MANUAL) 53 % (45-75); NUCLEATED RED BLOOD CELLS 1 /100 WBC; PLATELET ESTIMATE ADEQUATE; PLATELET MORPHOLOGY NORMAL; TOTAL CELLS COUNTED 100
--- NOTE | 2017-04-15 17:16 | Progress Note ---
DATE: 04/15/2017 CARDIOLOGY PROGRESS NOTE SUBJECTIVE: The patient is status post packed red blood cell transfusion yesterday. No respiratory distress noted. OBJECTIVE: VITAL SIGNS: Blood pressure 135/67, pulse 83, respirations 23, afebrile, and oxygen saturation on 3 liters is 97%. NECK: Supple. LUNGS: Clear with few rhonchi only. HEART: Regular rhythm and rate. ABDOMEN: Soft. EXTREMITIES: No edema. LABORATORY DATA: Potassium 3.6, BUN 8, and creatinine 0.3. Albumin 2.5. Pro-natriuretic peptide decreased to 756. White count 3.6, hemoglobin 9.4, MCV 111, and platelet count 201,000. IMPRESSION: 1. Status post respiratory failure. 2. Status post sepsis with shock. 3. Paroxysmal atrial fibrillation. 4. Sinus node disease. 5. Quadriparesis. 6. Anemia of chronic disease. 7. DVT, on anticoagulation. 8. Hypernatremia, corrected. 9. Hypovolemia, corrected. PLAN: 1. Taper oxygen. 2. Recheck vitamin profiles including B12 and thyroid function. 3. Discontinue intravenous fluids. 4. Continue tube feedings. 5. Recheck white blood count. 6. Discharge planning if stable blood counts. Nick Gilbert M.D. DR: DEMARCUS JOB#: [id number] CC:
[2017-04-15] MEDS: Xarelto 10mg tab ORAL SCH (17:48)
[2017-04-15] MEDS: Dyna-Hex 2% Top Sol 8oz TOPIC SCH (21:01)
[2017-04-16 04:00] VITALS: BP 96/38
[2017-04-16 07:04] LABS: MEAN CORPUSCULAR HEMOGLOBIN 35.1 PG (27.0-31.0); MEAN CORPUSCULAR HGB CONC 31.7 G/DL (32.0-36.0); MEAN CORPUSCULAR VOLUME 111 FL (80-99); MEAN PLATELET VOLUME 8.6 FL (6.5-10.1); PLATELET COUNT 190 K/UL (150-450); RED BLOOD COUNT 2.59 M/UL (4.20-5.40); RED CELL DISTRIBUTION WIDTH 18.6 % (11.6-14.8); WHITE BLOOD COUNT 2.9 K/UL (4.8-10.8)
[2017-04-16 07:29] LABS: ALANINE AMINOTRANSFERASE < 5 U/L (3-33); ALBUMIN/GLOBULIN RATIO 0.6 (1.0-2.7); ANION GAP 7 (5-15); ASPARTATE AMINO TRANSFERASE 15 U/L (5-40); CALCIUM 8.9 mg/dL (8.6-10.2); CARBON DIOXIDE 35 mEQ/L (20-30); CHLORIDE 101 mEQ/L (98-107); CREATININE 0.3 mg/dL (0.5-0.9); HEMOLYSIS 2; POTASSIUM 3.9 mEQ/L (3.4-4.9); SODIUM 143 mEQ/L (135-145); TOTAL PROTEIN 6.4 g/dL (6.6-8.7)
--- NOTE | 2017-04-16 08:14 | Critical Care Progress Note ---
Assessment/Plan Assessment/Plan IMPRESSION: 1. Respiratory failure . 2. Hypoxemia. 3. Evidence of pulmonary infiltrates consistent with pneumonia. 4. Hypotension. 5. Quadriparesis. 6. Bedbound state. 7. deep venous thrombosis. 8. Gastrostomy tube. 9. Known aspiration. 10. UTI 11. diarrhea 12. thrombocytopenia 13. hypernatremia 14. worsening anemia 15. leukopenia PLAN stable on oxygen no distress or congestion consider heme evaluation with worsening WBC antibiotics reviewed ID noted oxygen needs low monitor lytes monitor for congestion nutrition aspiration precautions dc planning per primary MD medications/laboratory data/nursing notes reviewed in detail note reviewed and edited care discussed with RN and RT Critical Care - Subjective Interval Events: d/w case management ROS Limited/Unobtainable: Yes EKG Rhythm: Sinus Rhythm I&O: Intake and Output 04/15/17 04/16/17 19:00 07:00 Intake Total 595 ml 760 ml Output Total 1000 ml 1000 ml Balance -405 ml -240 ml Intake Free Water 110 ml 100 ml IV Total 100 ml Tube Feeding 385 ml 660 ml Output Urine Total 1000 ml 1000 ml # Bowel Movements 2 2 Critical Care - Objective ET-Tube: 7.5 ET Position: 20 Last 24 Hour Vital Signs Date Time Temp Pulse Resp B/P Pulse Ox O2 Delivery O2 Flow Rate FiO2 04/16/17 04:00 97.7 89 20 96/38 94 Nasal Cannula 2.0 04/15/17 23:40 97.7 88 20 108/65 99 Nasal Cannula 2.0 04/15/17 20:38 96 Nasal Cannula 3.0 32 04/15/17 20:38 Nasal Cannula 3.0 32 04/15/17 20:00 97.9 86 20 101/55 96 Nasal Cannula 2.0 04/15/17 16:13 97.5 78 24 135/51 96 Nasal Cannula 2.0 04/15/17 11:51 97.7 91 19 128/65 97 Nasal Cannula 04/15/17 08:15 97.7 83 23 135/67 97 Nasal Cannula Labs: Labs Test 04/14/17 06:00 04/15/17 10:30 04/16/17 06:35 White Blood Count 2.5 K/UL (4.8-10.8) 3.6 K/UL (4.8-10.8) 2.9 K/UL (4.8-10.8) Red Blood Count 2.23 M/UL (4.20-5.40) 2.72 M/UL (4.20-5.40) 2.59 M/UL (4.20-5.40) Hemoglobin 7.9 G/DL (12.0-16.0) 9.4 G/DL (12.0-16.0) 9.1 G/DL (12.0-16.0) Hematocrit 25.8 % (37.0-47.0) 30.2 % (37.0-47.0) 28.7 % (37.0-47.0) Mean Corpuscular Volume 116 FL (80-99) 111 FL (80-99) 111 FL (80-99) Mean Corpuscular Hemoglobin 35.4 PG (27.0-31.0) 34.5 PG (27.0-31.0) 35.1 PG (27.0-31.0) Mean Corpuscular Hemoglobin Concent 30.5 G/DL (32.0-36.0) 31.2 G/DL (32.0-36.0) 31.7 G/DL (32.0-36.0) Red Cell Distribution Width 17.4 % (11.6-14.8) 19.1 % (11.6-14.8) 18.6 % (11.6-14.8) Platelet Count 207 K/UL (150-450) 201 K/UL (150-450) 190 K/UL (150-450) Mean Platelet Volume 8.2 FL (6.5-10.1) 8.1 FL (6.5-10.1) 8.6 FL (6.5-10.1) Neutrophils (%) (Auto) % (45.0-75.0) % (45.0-75.0) % (45.0-75.0) Lymphocytes (%) (Auto) % (20.0-45.0) % (20.0-45.0) % (20.0-45.0) Monocytes (%) (Auto) % (1.0-10.0) % (1.0-10.0) % (1.0-10.0) Eosinophils (%) (Auto) % (0.0-3.0) % (0.0-3.0) % (0.0-3.0) Basophils (%) (Auto) % (0.0-2.0) % (0.0-2.0) % (0.0-2.0) Differential Total Cells Counted 100 100 Neutrophils % (Manual) 58 % (45-75) 53 % (45-75) Lymphocytes % (Manual) 30 % (20-45) 35 % (20-45) Monocytes % (Manual) 11 % (1-10) 11 % (1-10) Eosinophils % (Manual) 1 % (0-3) 0 % (0-3) Basophils % (Manual) 0 % (0-2) 0 % (0-2) Band Neutrophils 0 % (0-8) 0 % (0-8) Other Cell Type Pathologist comment Platelet Estimate Adequate Adequate Platelet Morphology Normal Normal Polychromasia 1+ Hypochromasia 1+ 2+ Anisocytosis 1+ 2+ Macrocytosis 1+ 2+ Sodium Level 141 mEQ/L (135-145) 141 mEQ/L (135-145) 143 mEQ/L (135-145) Potassium Level 4.2 mEQ/L (3.4-4.9) 3.6 mEQ/L (3.4-4.9) 3.9 mEQ/L (3.4-4.9) Chloride Level 99 mEQ/L (98-107) 100 mEQ/L (98-107) 101 mEQ/L (98-107) Carbon Dioxide Level 33 mEQ/L (20-30) 32 mEQ/L (20-30) 35 mEQ/L (20-30) Anion Gap 9 (5-15) 9 (5-15) 7 (5-15) Blood Urea Nitrogen 8 mg/dL (7-23) 8 mg/dL (7-23) 9 mg/dL (7-23) Creatinine 0.2 mg/dL (0.5-0.9) 0.3 mg/dL (0.5-0.9) 0.3 mg/dL (0.5-0.9) Estimat Glomerular Filtration Rate mL/min (>60) mL/min (>60) mL/min (>60) Glucose Level 104 mg/dL (74-106) 113 mg/dL (74-106) 96 mg/dL (74-106) Calcium Level 8.8 mg/dL (8.6-10.2) 8.7 mg/dL (8.6-10.2) 8.9 mg/dL (8.6-10.2) Magnesium Level 2.1 mg/dL (1.7-2.5) 2.0 mg/dL (1.7-2.5) Total Bilirubin < 0.2 mg/dL (0.0-1.2) 0.2 mg/dL (0.0-1.2) < 0.2 mg/dL (0.0-1.2) Aspartate Amino Transf (AST/SGOT) 17 U/L (5-40) 17 U/L (5-40) 15 U/L (5-40) Alanine Aminotransferase (ALT/SGPT) 5 U/L (3-33) 5 U/L (3-33) < 5 U/L (3-33) Alkaline Phosphatase 45 U/L (35-104) 46 U/L (35-104) 48 U/L (35-104) Pro-B-Type Natriuretic Peptide 879 pg/mL (0-125) 756 pg/mL (0-125) 787 pg/mL (0-125) Total Protein 6.0 g/dL (6.6-8.7) 6.3 g/dL (6.6-8.7) 6.4 g/dL (6.6-8.7) Albumin 2.5 g/dL (3.5-5.2) 2.5 g/dL (3.5-5.2) 2.6 g/dL (3.5-5.2) Globulin 3.5 g/dL 3.8 g/dL 3.8 g/dL Albumin/Globulin Ratio 0.7 (1.0-2.7) 0.6 (1.0-2.7) 0.6 (1.0-2.7) Myelocytes % 1 % (0-0) Nucleated Red Blood Cells 1 /100 WBC Vitamin B12 Level 744 pg/mL (211-946) Thyroid Stimulating Hormone (TSH) 6.660 uIU/mL (0.300-4.500) Objective: GENERAL: The patient is a well-developed female, on oxygen HEENT: Negative. sluggish pupils NECK: Supple. no JVD LUNGS: Moderate breath sounds. no rhonchi noted. no wheeze; symmetric; no change CARDIAC: S1 and S2. Regular rate and rhythm.without MRG ABDOMEN: Soft and nontender. The patient has a G-tube in place . no HSM Extremities: No cyanosis or clubbing. noted contractures. Quadriparesis. withdrawn skin noted reviewed and edited Accucheck: 195 SANCHEZ NAVARRETE Apr 16, 2017 08:14
[2017-04-16 08:15] VITALS: BP 129/58
[2017-04-16] MEDS: Docusate 100mg/10ml Liq NG SCH ×2 (09:00→17:37)
[2017-04-16] MEDS: Ascorbic Acid 500mg tab GT SCH ×2 (09:33→17:36)
[2017-04-16] MEDS: Lacosamide 50mg tablet ORAL SCH ×2 (09:33→20:16)
[2017-04-16] MEDS: Valproic Acid 250mg/5ml Liquid GT SCH ×2 (09:34→20:16)
[2017-04-16 09:43] LABS: LYMPHOCYTES % (MANUAL) 46 % (20-45); NEUTROPHILS % (MANUAL) 51 % (45-75); TOTAL CELLS COUNTED 100
[2017-04-16 09:44] LABS: ANISOCYTOSIS 1+; BAND NEUTROPHILS % (MANUAL) 0 % (0-8); BASOPHILS % (MANUAL) 0 % (0-2); EOSINOPHILS % (MANUAL) 0 % (0-3); HYPOCHROMASIA 1+; MACROCYTES 1+; PLATELET ESTIMATE ADEQUATE; PLATELET MORPHOLOGY NORMAL
--- NOTE | 2017-04-16 11:45 | Infectious Diseases Prog Note ---
"Assessment/Plan Assessment/Plan antibiotics : none A 1. protues | e.coli UTI s/p rx 2. pseudomonas pneumonia s/p rx 3. respiratory failure 4. multiple sclerosis 5. seizure disorder P 1. continue off antibiotics Subjective ROS Limited/Unobtainable: Yes Allergies: Coded Allergies: CEFTRIAXONE (Verified Allergy, Unknown, 03/31/17) PENICILLINS (Verified Allergy, Unknown, 03/31/17) SULFA (SULFONAMIDE ANTIBIOTICS) (Verified Allergy, Unknown, 03/31/17) TAZOBACTAM (Verified Allergy, Unknown, 03/31/17) Objective Vital Signs Last 24 Hour Vital Signs Date Time Temp Pulse Resp B/P Pulse Ox O2 Delivery O2 Flow Rate FiO2 04/16/17 08:15 98.2 86 23 129/58 95 Nasal Cannula 2.0 04/16/17 04:00 97.7 89 20 96/38 94 Nasal Cannula 2.0 04/15/17 23:40 97.7 88 20 108/65 99 Nasal Cannula 2.0 04/15/17 20:38 96 Nasal Cannula 3.0 32 04/15/17 20:38 Nasal Cannula 3.0 32 04/15/17 20:00 97.9 86 20 101/55 96 Nasal Cannula 2.0 04/15/17 16:13 97.5 78 24 135/51 96 Nasal Cannula 2.0 04/15/17 11:51 97.7 91 19 128/65 97 Nasal Cannula Height (Feet): 5 Height (Inches): 3.00 Weight (Pounds): 237 Respiratory/Chest: lungs clear Cardiovascular: normal rate, regular rhythm, no gallop/murmur Abdomen: soft, non tender, other - GT Extremities: other - + edema, right arm PICC Laboratory Tests Test 04/16/17 06:35 White Blood Count 2.9 K/UL (4.8-10.8) L Red Blood Count 2.59 M/UL (4.20-5.40) L Hemoglobin 9.1 G/DL (12.0-16.0) L Hematocrit 28.7 % (37.0-47.0) L Mean Corpuscular Volume 111 FL (80-99) H Mean Corpuscular Hemoglobin 35.1 PG (27.0-31.0) H Mean Corpuscular Hemoglobin Concent 31.7 G/DL (32.0-36.0) L Red Cell Distribution Width 18.6 % (11.6-14.8) H Platelet Count 190 K/UL (150-450) Mean Platelet Volume 8.6 FL (6.5-10.1) Neutrophils (%) (Auto) % (45.0-75.0) Lymphocytes (%) (Auto) % (20.0-45.0) Monocytes (%) (Auto) % (1.0-10.0) Eosinophils (%) (Auto) % (0.0-3.0) Basophils (%) (Auto) % (0.0-2.0) Differential Total Cells Counted 100 Neutrophils % (Manual) 51 % (45-75) Lymphocytes % (Manual) 46 % (20-45) H Monocytes % (Manual) 3 % (1-10) Eosinophils % (Manual) 0 % (0-3) Basophils % (Manual) 0 % (0-2) Band Neutrophils 0 % (0-8) Platelet Estimate Adequate Platelet Morphology Normal Hypochromasia 1+ Anisocytosis 1+ Macrocytosis 1+ Sodium Level 143 mEQ/L (135-145) Potassium Level 3.9 mEQ/L (3.4-4.9) Chloride Level 101 mEQ/L (98-107) Carbon Dioxide Level 35 mEQ/L (20-30) H Anion Gap 7 (5-15) Blood Urea Nitrogen 9 mg/dL (7-23) Creatinine 0.3 mg/dL (0.5-0.9) L Estimat Glomerular Filtration Rate mL/min (>60) Glucose Level 96 mg/dL (74-106) Calcium Level 8.9 mg/dL (8.6-10.2) Magnesium Level 2.0 mg/dL (1.7-2.5) Total Bilirubin < 0.2 mg/dL (0.0-1.2) Aspartate Amino Transf (AST/SGOT) 15 U/L (5-40) Alanine Aminotransferase (ALT/SGPT) < 5 U/L (3-33) Alkaline Phosphatase 48 U/L (35-104) Pro-B-Type Natriuretic Peptide 787 pg/mL (0-125) H Total Protein 6.4 g/dL (6.6-8.7) L Albumin 2.6 g/dL (3.5-5.2) L Globulin 3.8 g/dL Albumin/Globulin Ratio 0.6 (1.0-2.7) L Vitamin B12 Level 744 pg/mL (211-946) Folate Pending Thyroid Stimulating Hormone (TSH) 6.660 uIU/mL (0.300-4.500) KAMRAN GUTIERREZ Apr 16, 2017 11:45"
[2017-04-16 11:52] VITALS: BP 123/62
[2017-04-16 16:04] VITALS: BP 107/55
[2017-04-16] MEDS: Xarelto 10mg tab ORAL SCH (17:37)
--- NOTE | 2017-04-16 19:20 | Cardiology Report ---
APPROVED REPORT EKG Measurement Heart [id number] [place] 112P [id number] Sinus tachycardia Possible Right ventricular hypertrophy Abnormal ECG
[2017-04-16 20:00] VITALS: BP 123/76
[2017-04-16] MEDS: Dyna-Hex 2% Top Sol 8oz TOPIC SCH (20:16)
[2017-04-16] MEDS: Epogen (for non ESRD use) SUBQ SCH (21:05)
[2017-04-17] VITALS: BP 113/86
--- NOTE | 2017-04-17 01:17 | Progress Note ---
DATE: 04/16/2017 CARDIOLOGY PROGRESS NOTE SUBJECTIVE: The patient is without respiratory distress. No chest pain. Afebrile. Off antibiotics. OBJECTIVE: VITAL SIGNS: Blood pressure 96/38 to 129/58, heart rate 86, and respiratory rate 20. She is afebrile. LUNGS: Good breath sounds. No wheezing. HEART: Regular rhythm and rate. Normal S1 and S2. ABDOMEN: Soft. EXTREMITIES: No edema. LABORATORY RESULTS: Potassium 3.9, BUN 9, and creatinine 0.3. TSH 6.6. Vitamin B12 normal. Albumin 2.6. White count 2.9 and hemoglobin 9.1. IMPRESSION: 1. Leukopenia possibly due to Xarelto 2. Anemia. 3. Status post sepsis with shock. 4. Multiple sclerosis. 5. Quadriparesis. 6. Deep venous thrombosis, on anticoagulation. 7. Dysphagia with gastrostomy tube. PLAN: 1. Discontinue Xarelto. We will consider Hematology evaluation. 2. We will observe off antibiotics. 3. Maintain current cardiopulmonary regimen. Nick Gilbert M.D. DR: DEMARCUS JOB#: [id number] CC: ANA PAULA
[2017-04-17 04:00] VITALS: BP 111/48
[2017-04-17 08:00] VITALS: BP 122/69
--- NOTE | 2017-04-17 08:45 | Critical Care Progress Note ---
Assessment/Plan Assessment/Plan IMPRESSION: 1. Respiratory failure . 2. Hypoxemia. 3. Evidence of pulmonary infiltrates consistent with pneumonia. 4. Hypotension. 5. Quadriparesis. 6. Bedbound state. 7. deep venous thrombosis. 8. Gastrostomy tube. 9. Known aspiration. 10. UTI 11. diarrhea 12. thrombocytopenia 13. hypernatremia 14. worsening anemia 15. leukopenia PLAN stable on oxygen no distress or congestion monitor WBC oxygen needs low monitor lytes for change and replace monitor for congestion nutrition aspiration precautions dc planning once labs improved medications/laboratory data/nursing notes reviewed in detail note reviewed and edited care discussed with RN and RT Critical Care - Subjective Interval Events: care reviewed findings discussed ROS Limited/Unobtainable: Yes EKG Rhythm: Sinus Rhythm I&O: Intake and Output 04/16/17 04/17/17 19:00 07:00 Intake Total 720 ml 665 ml Output Total 1200 ml Balance -480 ml 665 ml Intake Free Water 60 ml 60 ml Tube Feeding 660 ml 605 ml Output Urine Total 1200 ml # Bowel Movements 1 Critical Care - Objective ET-Tube: 7.5 ET Position: 20 Last 24 Hour Vital Signs Date Time Temp Pulse Resp B/P Pulse Ox O2 Delivery O2 Flow Rate FiO2 04/17/17 04:00 97.0 85 22 111/48 99 Nasal Cannula 3.0 04/17/17 00:00 97.9 88 20 113/86 98 Nasal Cannula 2.0 04/16/17 20:00 97.2 89 20 123/76 94 Nasal Cannula 2.0 04/16/17 18:53 Nasal Cannula 3.0 32 04/16/17 18:53 97 Nasal Cannula 3.0 32 04/16/17 16:04 97.6 97 21 107/55 97 Nasal Cannula 2.0 04/16/17 11:52 97.9 90 22 123/62 95 Nasal Cannula 2.0 Labs: Labs Test 04/15/17 10:30 04/16/17 06:35 White Blood Count 3.6 K/UL (4.8-10.8) 2.9 K/UL (4.8-10.8) Red Blood Count 2.72 M/UL (4.20-5.40) 2.59 M/UL (4.20-5.40) Hemoglobin 9.4 G/DL (12.0-16.0) 9.1 G/DL (12.0-16.0) Hematocrit 30.2 % (37.0-47.0) 28.7 % (37.0-47.0) Mean Corpuscular Volume 111 FL (80-99) 111 FL (80-99) Mean Corpuscular Hemoglobin 34.5 PG (27.0-31.0) 35.1 PG (27.0-31.0) Mean Corpuscular Hemoglobin Concent 31.2 G/DL (32.0-36.0) 31.7 G/DL (32.0-36.0) Red Cell Distribution Width 19.1 % (11.6-14.8) 18.6 % (11.6-14.8) Platelet Count 201 K/UL (150-450) 190 K/UL (150-450) Mean Platelet Volume 8.1 FL (6.5-10.1) 8.6 FL (6.5-10.1) Neutrophils (%) (Auto) % (45.0-75.0) % (45.0-75.0) Lymphocytes (%) (Auto) % (20.0-45.0) % (20.0-45.0) Monocytes (%) (Auto) % (1.0-10.0) % (1.0-10.0) Eosinophils (%) (Auto) % (0.0-3.0) % (0.0-3.0) Basophils (%) (Auto) % (0.0-2.0) % (0.0-2.0) Differential Total Cells Counted 100 100 Neutrophils % (Manual) 53 % (45-75) 51 % (45-75) Lymphocytes % (Manual) 35 % (20-45) 46 % (20-45) Monocytes % (Manual) 11 % (1-10) 3 % (1-10) Eosinophils % (Manual) 0 % (0-3) 0 % (0-3) Basophils % (Manual) 0 % (0-2) 0 % (0-2) Myelocytes % 1 % (0-0) Band Neutrophils 0 % (0-8) 0 % (0-8) Nucleated Red Blood Cells 1 /100 WBC Platelet Estimate Adequate Adequate Platelet Morphology Normal Normal Hypochromasia 2+ 1+ Anisocytosis 2+ 1+ Macrocytosis 2+ 1+ Sodium Level 141 mEQ/L (135-145) 143 mEQ/L (135-145) Potassium Level 3.6 mEQ/L (3.4-4.9) 3.9 mEQ/L (3.4-4.9) Chloride Level 100 mEQ/L (98-107) 101 mEQ/L (98-107) Carbon Dioxide Level 32 mEQ/L (20-30) 35 mEQ/L (20-30) Anion Gap 9 (5-15) 7 (5-15) Blood Urea Nitrogen 8 mg/dL (7-23) 9 mg/dL (7-23) Creatinine 0.3 mg/dL (0.5-0.9) 0.3 mg/dL (0.5-0.9) Estimat Glomerular Filtration Rate mL/min (>60) mL/min (>60) Glucose Level 113 mg/dL (74-106) 96 mg/dL (74-106) Calcium Level 8.7 mg/dL (8.6-10.2) 8.9 mg/dL (8.6-10.2) Total Bilirubin 0.2 mg/dL (0.0-1.2) < 0.2 mg/dL (0.0-1.2) Aspartate Amino Transf (AST/SGOT) 17 U/L (5-40) 15 U/L (5-40) Alanine Aminotransferase (ALT/SGPT) 5 U/L (3-33) < 5 U/L (3-33) Alkaline Phosphatase 46 U/L (35-104) 48 U/L (35-104) Pro-B-Type Natriuretic Peptide 756 pg/mL (0-125) 787 pg/mL (0-125) Total Protein 6.3 g/dL (6.6-8.7) 6.4 g/dL (6.6-8.7) Albumin 2.5 g/dL (3.5-5.2) 2.6 g/dL (3.5-5.2) Globulin 3.8 g/dL 3.8 g/dL Albumin/Globulin Ratio 0.6 (1.0-2.7) 0.6 (1.0-2.7) Magnesium Level 2.0 mg/dL (1.7-2.5) Vitamin B12 Level 744 pg/mL (211-946) Folate 12.3 ng/mL (>3.0) Thyroid Stimulating Hormone (TSH) 6.660 uIU/mL (0.300-4.500) Objective: GENERAL: The patient is a well-developed female, on oxygen HEENT: Negative. reduced gag NECK: Supple. no JVD LUNGS: Moderate breath sounds. no rhonchi noted. no wheeze; symmetric; no change CARDIAC: S1 and S2. Regular rate and rhythm.without MRG ABDOMEN: Soft and nontender. The patient has a G-tube in place . no HSM Extremities: No cyanosis or clubbing. noted contractures. Quadriparesis. overall same skin noted reviewed and edited Accucheck: 195 SANCHEZ NAVARRETE Apr 17, 2017 08:45
[2017-04-17] MEDS: Ascorbic Acid 500mg tab GT SCH ×2 (08:55→18:36)
[2017-04-17] MEDS: Lacosamide 50mg tablet ORAL SCH ×2 (08:55→21:28)
[2017-04-17] MEDS: Docusate 100mg/10ml Liq NG SCH ×2 (08:56→18:36)
[2017-04-17] MEDS: Valproic Acid 250mg/5ml Liquid GT SCH ×2 (08:56→21:29)
[2017-04-17 12:00] VITALS: BP 98/68
--- NOTE | 2017-04-17 12:47 | Progress Note ---
DATE: 04/17/2017 INTERNAL MEDICINE AND CARDIOLOGY PROGRESS NOTE SUBJECTIVE: The patient is without distress, but requires frequent respiratory hygiene. Xarelto was discontinued yesterday due to continued leukopenia. OBJECTIVE: VITAL SIGNS: Blood pressure is 111/48, pulse 85, and respiratory 22. RESPIRATORY: Diminished breath sounds. Scattered rhonchi. HEART: Regular rhythm and rate. Normal S1 and S2. ABDOMEN: Soft. EXTREMITIES: Trace dependent edema. LABORATORY DATA: No laboratories today. TSH yesterday was 6.6. IMPRESSION: 1. Status post respiratory failure, recovered sepsis with shock. 2. Healthcare acquired pneumonia, resolved. 3. Quadriparesis. 4. Deep venous thrombosis. 5. Leukopenia, suspected due to Xarelto. 6. Anemia. 7. Dysphagia. 8. Hypothyroidism. PLAN: Advance dose of thyroid replacement. Continue observation. Off Xarelto. Consider warfarin over the next 24 to 48 hours. Respiratory hygiene. Follow up CBC. Nick Gilbert M.D. DR: SARAH JOB#: [id number] CC:
[2017-04-17 16:00] VITALS: BP 106/49
[2017-04-17] MEDS ORDERED: Milk of Magnesia 30ml Ud GT PRN (16:26)
[2017-04-17 17:09] LABS: MEAN CORPUSCULAR HEMOGLOBIN 35.4 PG (27.0-31.0); MEAN CORPUSCULAR HGB CONC 32.2 G/DL (32.0-36.0); MEAN CORPUSCULAR VOLUME 110 FL (80-99); PLATELET COUNT 195 K/UL (150-450); RED BLOOD COUNT 2.57 M/UL (4.20-5.40); RED CELL DISTRIBUTION WIDTH 17.7 % (11.6-14.8); WHITE BLOOD COUNT 2.7 K/UL (4.8-10.8)
[2017-04-17 17:13] LABS: EOSINOPHILS % (AUTO) 1.7 % (0.0-3.0); LYMPHOCYTES % (AUTO) 44.5 % (20.0-45.0); MONOCYTES % (AUTO) 10.2 % (1.0-10.0); NEUTROPHILS % (AUTO) 41.8 % (45.0-75.0)
[2017-04-17 17:14] LABS: BASOPHILS % (AUTO) 1.8 % (0.0-2.0)
[2017-04-17 20:00] VITALS: BP 117/73
[2017-04-17] MEDS: Dyna-Hex 2% Top Sol 8oz TOPIC SCH (21:28)
[2017-04-17] MEDS ORDERED: NS 275ml ONE (22:59)
[2017-04-17] MEDS ORDERED: Tubing Blood Filter IV ONE (22:59)
[2017-04-18] VITALS: BP 119/64
[2017-04-18 04:00] VITALS: BP 123/75
[2017-04-18 08:02] VITALS: BP 122/55
--- NOTE | 2017-04-18 09:18 | Diagnostic Imaging Report ---
Indications: Dose of breath Technique: Portable AP chest Findings: Comparison: 03/31/17 Inspiratory effort remains suboptimal. Cardiac silhouette remains partially obscured. Peripheral pulmonary vasculature remains within normal limits. Right midlung, bibasal linear densities unchanged. No definite pleural abnormality. IMPRESSION: Stable bilateral subsegmental atelectasis No new abnormality, limited as described
--- NOTE | 2017-04-18 09:18 | Diagnostic Imaging Report ---
Indications: Intubation Technique: Portable AP chest at 0948 Findings: Comparison: 0744 Endotracheal tube has been placed, tip within 1 cm of tracheal mahin. Nasogastric tube has been placed, tip off edge of image, well below the diaphragm. Pulmonary inflation has improved. Linear densities persist in right midlung, bases. Cardiac mediastinal silhouette stable. Left costophrenic angle remains somewhat indistinct. IMPRESSION: Endotracheal tube placed, tip in position, recommend withdrawal 2 cm Nasogastric tube likely in good position Persistent bilateral subsegmental atelectasis Small pleural effusion not excludable
[2017-04-18] MEDS: Valproic Acid 250mg/5ml Liquid GT SCH ×2 (09:22→20:12)
[2017-04-18] MEDS: Ascorbic Acid 500mg tab GT SCH ×2 (09:22→17:53)
[2017-04-18] MEDS: Lacosamide 50mg tablet ORAL SCH ×2 (09:22→20:12)
[2017-04-18] MEDS: Docusate 100mg/10ml Liq NG SCH ×2 (09:23→17:53)
[2017-04-18 11:45] VITALS: BP 122/80
--- NOTE | 2017-04-18 12:25 | Infectious Diseases Prog Note ---
Assessment/Plan Assessment/Plan A 1. UTI s/p Rx 2. pneumonia with pseudomonas s/p Rx 3. respiratory failure, extubated 4. multiple sclerosis 5. seizure disorder P; Observe off antibiotic Discontinue PICC line at time of discharge Subjective ROS Limited/Unobtainable: Yes Allergies: Coded Allergies: CEFTRIAXONE (Verified Allergy, Unknown, 03/31/17) PENICILLINS (Verified Allergy, Unknown, 03/31/17) SULFA (SULFONAMIDE ANTIBIOTICS) (Verified Allergy, Unknown, 03/31/17) TAZOBACTAM (Verified Allergy, Unknown, 03/31/17) Objective Vital Signs Last 24 Hour Vital Signs Date Time Temp Pulse Resp B/P Pulse Ox O2 Delivery O2 Flow Rate FiO2 04/18/17 11:45 97.6 87 21 122/80 97 Nasal Cannula 2.0 04/18/17 08:02 97.5 89 21 122/55 96 Nasal Cannula 2.0 04/18/17 04:00 97.3 68 20 123/75 91 Nasal Cannula 3.0 04/18/17 00:00 97.7 91 20 119/64 Nasal Cannula 3.0 04/17/17 20:00 97.2 68 20 117/73 91 Nasal Cannula 3.0 04/17/17 16:00 98.1 87 20 106/49 96 Nasal Cannula 3.0 Height (Feet): 5 Height (Inches): 3.00 Weight (Pounds): 237 General Appearance: no acute distress HEENT: mucous membranes moist Respiratory/Chest: lungs clear, other - O2 by nasal cannula Cardiovascular: normal rate Abdomen: soft, non tender, other - GT feeding Extremities: other - R arm PICC line, edema Neurologic/Psychiatric: other - sleeping Laboratory Tests Test 04/17/17 15:30 White Blood Count 2.7 K/UL (4.8-10.8) L Red Blood Count 2.57 M/UL (4.20-5.40) L Hemoglobin 9.1 G/DL (12.0-16.0) L Hematocrit 28.3 % (37.0-47.0) L Mean Corpuscular Volume 110 FL (80-99) H Mean Corpuscular Hemoglobin 35.4 PG (27.0-31.0) H Mean Corpuscular Hemoglobin Concent 32.2 G/DL (32.0-36.0) Red Cell Distribution Width 17.7 % (11.6-14.8) H Platelet Count 195 K/UL (150-450) Mean Platelet Volume 7.0 FL (6.5-10.1) Neutrophils (%) (Auto) 41.8 % (45.0-75.0) L Lymphocytes (%) (Auto) 44.5 % (20.0-45.0) Monocytes (%) (Auto) 10.2 % (1.0-10.0) H Eosinophils (%) (Auto) 1.7 % (0.0-3.0) Basophils (%) (Auto) 1.8 % (0.0-2.0) Current Medications Medications (Trade) Dose Ordered Sig/Reji Route PRN Reason Start Time Stop Time Status Last Admin Dose Admin Acetaminophen (Tylenol) 650 mg Q4H PRN ORAL Mild Pain/Temp > 100.5 04/11/17 20:45 05/11/17 20:44 Ascorbic Acid (Vitamin C) 500 mg TWICE A DAY GT 04/12/17 09:00 05/12/17 08:59 04/18/17 09:22 Chlorhexidine Gluconate (Sheela-Hex 2%) 1 applic QHS TOPIC 04/13/17 21:00 05/13/17 20:59 04/17/17 21:28 Docusate Sodium (Colace) 100 mg TWICE A DAY NG 04/13/17 18:00 05/13/17 17:59 04/18/17 09:23 Epoetin Carlos (Procrit (for non ESRD use)) 3,000 units WED-WED-WED SUBQ 04/12/17 21:00 05/12/17 20:59 04/16/17 21:05 Lacosamide (Vimpat) 50 mg Q12HR ORAL 04/11/17 22:00 05/11/17 21:59 04/18/17 09:22 Lansoprazole (Prevacid) 30 mg DAILY GT 04/12/17 09:00 05/12/17 08:59 04/18/17 09:22 Levothyroxine Sodium (Synthroid) 75 mcg ACBREAKFAST GT 04/17/17 06:30 05/17/17 06:29 04/18/17 05:56 Magnesium Hydroxide (Mom) 30 ml HSPRN PRN GT Constipation 04/17/17 16:26 05/13/17 15:29 Valproic Acid (Depakene) 1,000 mg Q12HR GT 04/11/17 22:00 05/11/17 21:59 04/18/17 09:22 PARDEEP IRVING Apr 18, 2017 12:25
--- NOTE | 2017-04-18 14:02 | Progress Note ---
DATE: 04/18/2017 CARDIOLOGY PROGRESS NOTE SUBJECTIVE: The patient is off Xarelto now for 2 days. Repeat laboratory studies are pending. The patient remains off anticoagulation completely at this time. No shortness of breath. Baseline dementia. OBJECTIVE: VITAL SIGNS: Blood pressure is 122/55, pulse rate 89, respiratory rate 21, afebrile, oxygen saturation 91% to 96% on 2 liters by nasal cannula. LUNGS: Diminished breath sounds. No wheezing. HEART: Regular rhythm and rate. Normal S1 and S2. ABDOMEN: Soft. G-tube intact. EXTREMITIES: Trace edema. IMPRESSION: 1. Deep venous thrombosis, status post respiratory failure. 2. Leukopenia, possibly due to Xarelto. 3. Anemia. 4. Dysphagia. 5. Quadriparesis. 6. Resolved healthcare acquired pneumonia. 7. Hypothyroidism with increased replacement therapy. PLAN: Recheck laboratory studies. Consider warfarin over the next 24 hours. Respiratory hygiene. Continue thyroid replacement and other medication without change at this time. Nick Gilbert M.D. DR: SARAH JOB#: [id number] CC:
--- NOTE | 2017-04-18 15:14 | Critical Care Progress Note ---
Assessment/Plan Assessment/Plan IMPRESSION: 1. Respiratory failure . 2. Hypoxemia. 3. Evidence of pulmonary infiltrates consistent with pneumonia. 4. Hypotension. 5. Quadriparesis. 6. Bedbound state. 7. deep venous thrombosis. 8. Gastrostomy tube. 9. Known aspiration. 10. UTI 11. diarrhea 12. thrombocytopenia 13. hypernatremia 14. worsening anemia 15. leukopenia PLAN stable on oxygen currently systems reviewed no distress or congestion monitor WBC and leukopenia monitor lytes for change and replace monitor for congestion and adjust therapy nutrition with caution aspiration precautions dc planning once labs improved medications/laboratory data/nursing notes reviewed in detail note reviewed and edited care discussed with RN and RT Critical Care - Subjective ROS Limited/Unobtainable: Yes Condition: stable EKG Rhythm: Sinus Rhythm I&O: Intake and Output 04/17/17 04/18/17 19:00 07:00 Intake Total 840 ml 665 ml Output Total 1000 ml 400 ml Balance -160 ml 265 ml Intake Free Water 180 ml 60 ml Tube Feeding 660 ml 605 ml Output Urine Total 1000 ml 400 ml # Bowel Movements 1 Critical Care - Objective ET-Tube: 7.5 ET Position: 20 Last 24 Hour Vital Signs Date Time Temp Pulse Resp B/P Pulse Ox O2 Delivery O2 Flow Rate FiO2 04/18/17 11:45 97.6 87 21 122/80 97 Nasal Cannula 2.0 04/18/17 08:02 97.5 89 21 122/55 96 Nasal Cannula 2.0 04/18/17 04:00 97.3 68 20 123/75 91 Nasal Cannula 3.0 04/18/17 00:00 97.7 91 20 119/64 Nasal Cannula 3.0 04/17/17 20:00 97.2 68 20 117/73 91 Nasal Cannula 3.0 04/17/17 16:00 98.1 87 20 106/49 96 Nasal Cannula 3.0 Labs: Labs Test 04/16/17 06:35 04/17/17 15:30 White Blood Count 2.9 K/UL (4.8-10.8) 2.7 K/UL (4.8-10.8) Red Blood Count 2.59 M/UL (4.20-5.40) 2.57 M/UL (4.20-5.40) Hemoglobin 9.1 G/DL (12.0-16.0) 9.1 G/DL (12.0-16.0) Hematocrit 28.7 % (37.0-47.0) 28.3 % (37.0-47.0) Mean Corpuscular Volume 111 FL (80-99) 110 FL (80-99) Mean Corpuscular Hemoglobin 35.1 PG (27.0-31.0) 35.4 PG (27.0-31.0) Mean Corpuscular Hemoglobin Concent 31.7 G/DL (32.0-36.0) 32.2 G/DL (32.0-36.0) Red Cell Distribution Width 18.6 % (11.6-14.8) 17.7 % (11.6-14.8) Platelet Count 190 K/UL (150-450) 195 K/UL (150-450) Mean Platelet Volume 8.6 FL (6.5-10.1) 7.0 FL (6.5-10.1) Neutrophils (%) (Auto) % (45.0-75.0) 41.8 % (45.0-75.0) Lymphocytes (%) (Auto) % (20.0-45.0) 44.5 % (20.0-45.0) Monocytes (%) (Auto) % (1.0-10.0) 10.2 % (1.0-10.0) Eosinophils (%) (Auto) % (0.0-3.0) 1.7 % (0.0-3.0) Basophils (%) (Auto) % (0.0-2.0) 1.8 % (0.0-2.0) Differential Total Cells Counted 100 Neutrophils % (Manual) 51 % (45-75) Lymphocytes % (Manual) 46 % (20-45) Monocytes % (Manual) 3 % (1-10) Eosinophils % (Manual) 0 % (0-3) Basophils % (Manual) 0 % (0-2) Band Neutrophils 0 % (0-8) Platelet Estimate Adequate Platelet Morphology Normal Hypochromasia 1+ Anisocytosis 1+ Macrocytosis 1+ Sodium Level 143 mEQ/L (135-145) Potassium Level 3.9 mEQ/L (3.4-4.9) Chloride Level 101 mEQ/L (98-107) Carbon Dioxide Level 35 mEQ/L (20-30) Anion Gap 7 (5-15) Blood Urea Nitrogen 9 mg/dL (7-23) Creatinine 0.3 mg/dL (0.5-0.9) Estimat Glomerular Filtration Rate mL/min (>60) Glucose Level 96 mg/dL (74-106) Calcium Level 8.9 mg/dL (8.6-10.2) Magnesium Level 2.0 mg/dL (1.7-2.5) Total Bilirubin < 0.2 mg/dL (0.0-1.2) Aspartate Amino Transf (AST/SGOT) 15 U/L (5-40) Alanine Aminotransferase (ALT/SGPT) < 5 U/L (3-33) Alkaline Phosphatase 48 U/L (35-104) Pro-B-Type Natriuretic Peptide 787 pg/mL (0-125) Total Protein 6.4 g/dL (6.6-8.7) Albumin 2.6 g/dL (3.5-5.2) Globulin 3.8 g/dL Albumin/Globulin Ratio 0.6 (1.0-2.7) Vitamin B12 Level 744 pg/mL (211-946) Folate 12.3 ng/mL (>3.0) Thyroid Stimulating Hormone (TSH) 6.660 uIU/mL (0.300-4.500) Objective: GENERAL: The patient is a well-developed female, on oxygen HEENT: Negative. reduced gag NECK: Supple. no JVD LUNGS: Moderate breath sounds. no rhonchi noted. no wheeze; symmetric; no change CARDIAC: S1 and S2. Regular rate and rhythm.without MRG ABDOMEN: Soft and nontender. The patient has a G-tube in place . no HSM Extremities: No cyanosis or clubbing. noted contractures. Quadriparesis. overall same skin noted reviewed and edited Accucheck: 195 SANCHEZ NAVARRETE Apr 18, 2017 15:14
[2017-04-18 16:00] VITALS: BP 126/61
[2017-04-18 20:00] VITALS: BP 134/66
[2017-04-18] MEDS: Dyna-Hex 2% Top Sol 8oz TOPIC SCH (20:12)
[2017-04-19] VITALS: BP 104/51
[2017-04-19 04:00] VITALS: BP 110/54
[2017-04-19 07:08] LABS: MEAN CORPUSCULAR HEMOGLOBIN 34.9 PG (27.0-31.0); MEAN CORPUSCULAR HGB CONC 31.5 G/DL (32.0-36.0); MEAN CORPUSCULAR VOLUME 111 FL (80-99); PLATELET COUNT 217 K/UL (150-450); RED BLOOD COUNT 3.06 M/UL (4.20-5.40); RED CELL DISTRIBUTION WIDTH 17.3 % (11.6-14.8); WHITE BLOOD COUNT 2.7 K/UL (4.8-10.8)
[2017-04-19 07:12] LABS: ALANINE AMINOTRANSFERASE 5 U/L (3-33); ALBUMIN/GLOBULIN RATIO 0.5 (1.0-2.7); ANION GAP 10 (5-15); ASPARTATE AMINO TRANSFERASE 13 U/L (5-40); CALCIUM 9.2 mg/dL (8.6-10.2); CARBON DIOXIDE 32 mEQ/L (20-30); CHLORIDE 104 mEQ/L (98-107); CREATININE 0.3 mg/dL (0.5-0.9); HEMOLYSIS 3; MAGNESIUM 1.8 mg/dL (1.7-2.5); POTASSIUM 4.3 mEQ/L (3.4-4.9); SODIUM 146 mEQ/L (135-145); TOTAL PROTEIN 7.1 g/dL (6.6-8.7)
--- NOTE | 2017-04-19 08:00 | Critical Care Progress Note ---
Assessment/Plan Assessment/Plan IMPRESSION: 1. Respiratory failure . 2. Hypoxemia. 3. Evidence of pulmonary infiltrates consistent with pneumonia. 4. Hypotension. 5. Quadriparesis. 6. Bedbound state. 7. deep venous thrombosis. 8. Gastrostomy tube. 9. Known aspiration. 10. UTI 11. diarrhea 12. thrombocytopenia 13. hypernatremia 14. worsening anemia 15. leukopenia PLAN stable on oxygen and current respiratory status systems reviewed no distress or congestion at present monitor WBC and leukopenia- consider heme evaluation monitor for change monitor for congestion and adjust therapy nutrition with caution aspiration precautions dc planning per primary team medications/laboratory data/nursing notes reviewed in detail note reviewed and edited care discussed with RN and RT Critical Care - Subjective Interval Events: no respiratory change o2 needs noted labs noted ROS Limited/Unobtainable: Yes EKG Rhythm: Sinus Rhythm Residuals: minimal Tube Feeding Tolerated: yes I&O: Intake and Output 04/18/17 04/19/17 19:00 07:00 Intake Total 55 ml 550 ml Output Total 500 ml 500 ml Balance -445 ml 50 ml Intake Oral 0 ml Tube Feeding 55 ml 550 ml Output Urine Total 500 ml 500 ml # Bowel Movements 2 2 Critical Care - Objective ET-Tube: 7.5 ET Position: 20 Last 24 Hour Vital Signs Date Time Temp Pulse Resp B/P Pulse Ox O2 Delivery O2 Flow Rate FiO2 04/19/17 07:17 Nasal Cannula 3.0 04/19/17 07:17 95 Nasal Cannula 3.0 04/19/17 04:00 98.2 91 20 110/54 96 Nasal Cannula 2.0 04/19/17 00:00 97.2 77 20 104/51 94 Nasal Cannula 2.0 04/18/17 20:00 98.1 92 20 134/66 98 Nasal Cannula 2.0 04/18/17 19:19 Nasal Cannula 3.0 04/18/17 19:19 97 Nasal Cannula 3.0 04/18/17 16:00 97.9 88 21 126/61 96 Room Air 04/18/17 11:45 97.6 87 21 122/80 97 Nasal Cannula 2.0 04/18/17 08:02 97.5 89 21 122/55 96 Nasal Cannula 2.0 Objective: GENERAL: The patient is a well-developed female, on oxygen HEENT: Negative. reduced gag NECK: Supple. no JVD LUNGS: Moderate breath sounds. no rhonchi noted. no wheeze; symmetric; no change CARDIAC: S1 and S2. Regular rate and rhythm.without MRG ABDOMEN: Soft and nontender. The patient has a G-tube in place . no HSM Extremities: No cyanosis or clubbing. noted contractures. Quadriparesis. overall same skin noted reviewed and edited Accucheck: 195 SANCHEZ NAVARRETE Apr 19, 2017 08:00
--- NOTE | 2017-04-19 08:05 | Cardiology Report ---
APPROVED REPORT EXAM: Two-dimensional and M-mode echocardiogram with Doppler and color Doppler. INDICATION ATRIAL FIBRILLATION Normal left ventricular chamber size, systolic function to extent visualized. Left ventricular ejection fraction estimated to be grossly normal. Study quality precludes accurate assessment of regional wall motion. Mild left ventricular hypertrophy by 2-D. No evidence of pericardial effusion. All other cardiac chambers seem to be within normal limits. A color flow and spectral Doppler study was performed and revealed: Trace tricuspid regurgitation. Tricuspid systolic velocities suggests peak right ventricular systolic pressure of 13 mmHg.
[2017-04-19 08:15] VITALS: BP 123/60
[2017-04-19] MEDS: Docusate 100mg/10ml Liq NG SCH ×2 (09:00→18:00)
[2017-04-19] MEDS: Lacosamide 50mg tablet ORAL SCH ×2 (09:14→20:47)
[2017-04-19] MEDS: Valproic Acid 250mg/5ml Liquid GT SCH ×2 (09:14→20:47)
[2017-04-19] MEDS: Ascorbic Acid 500mg tab GT SCH ×2 (09:14→18:25)
[2017-04-19 09:22] LABS: ANISOCYTOSIS 1+; BAND NEUTROPHILS % (MANUAL) 0 % (0-8); BASOPHILS % (MANUAL) 0 % (0-2); EOSINOPHILS % (MANUAL) 1 % (0-3); LYMPHOCYTES % (MANUAL) 41 % (20-45); MACROCYTES 1+; NEUTROPHILS % (MANUAL) 49 % (45-75); PLATELET ESTIMATE ADEQUATE; PLATELET MORPHOLOGY NORMAL; TOTAL CELLS COUNTED 100
[2017-04-19 09:23] LABS: HYPOCHROMASIA 1+
[2017-04-19 12:04] VITALS: BP 151/70
--- NOTE | 2017-04-19 12:29 | Infectious Diseases Prog Note ---
"Assessment/Plan Assessment/Plan antibiotics : none A 1. protues | e.coli UTI s/p rx 2. pseudomonas pneumonia s/p rx 3. respiratory failure 4. multiple sclerosis 5. seizure disorder P 1. continue off antibiotics Subjective ROS Limited/Unobtainable: Yes Allergies: Coded Allergies: CEFTRIAXONE (Verified Allergy, Unknown, 03/31/17) PENICILLINS (Verified Allergy, Unknown, 03/31/17) SULFA (SULFONAMIDE ANTIBIOTICS) (Verified Allergy, Unknown, 03/31/17) TAZOBACTAM (Verified Allergy, Unknown, 03/31/17) Objective Vital Signs Last 24 Hour Vital Signs Date Time Temp Pulse Resp B/P Pulse Ox O2 Delivery O2 Flow Rate FiO2 04/19/17 12:04 98.2 96 20 151/70 98 Nasal Cannula 2.0 04/19/17 08:15 98.6 90 21 123/60 97 Nasal Cannula 2.0 04/19/17 07:17 Nasal Cannula 3.0 04/19/17 07:17 95 Nasal Cannula 3.0 04/19/17 04:00 98.2 91 20 110/54 96 Nasal Cannula 2.0 04/19/17 00:00 97.2 77 20 104/51 94 Nasal Cannula 2.0 04/18/17 20:00 98.1 92 20 134/66 98 Nasal Cannula 2.0 04/18/17 19:19 Nasal Cannula 3.0 04/18/17 19:19 97 Nasal Cannula 3.0 04/18/17 16:00 97.9 88 21 126/61 96 Room Air Height (Feet): 5 Height (Inches): 3.00 Weight (Pounds): 237 Respiratory/Chest: lungs clear Cardiovascular: normal rate, regular rhythm, no gallop/murmur Abdomen: soft, non tender, other - GT Extremities: other - + edema, right arm PICC Laboratory Tests Test 04/19/17 05:10 White Blood Count 2.7 K/UL (4.8-10.8) L Red Blood Count 3.06 M/UL (4.20-5.40) L Hemoglobin 10.7 G/DL (12.0-16.0) L Hematocrit 33.8 % (37.0-47.0) L Mean Corpuscular Volume 111 FL (80-99) H Mean Corpuscular Hemoglobin 34.9 PG (27.0-31.0) H Mean Corpuscular Hemoglobin Concent 31.5 G/DL (32.0-36.0) L Red Cell Distribution Width 17.3 % (11.6-14.8) H Platelet Count 217 K/UL (150-450) Mean Platelet Volume 7.0 FL (6.5-10.1) Neutrophils (%) (Auto) % (45.0-75.0) Lymphocytes (%) (Auto) % (20.0-45.0) Monocytes (%) (Auto) % (1.0-10.0) Eosinophils (%) (Auto) % (0.0-3.0) Basophils (%) (Auto) % (0.0-2.0) Differential Total Cells Counted 100 Neutrophils % (Manual) 49 % (45-75) Lymphocytes % (Manual) 41 % (20-45) Monocytes % (Manual) 9 % (1-10) Eosinophils % (Manual) 1 % (0-3) Basophils % (Manual) 0 % (0-2) Band Neutrophils 0 % (0-8) Platelet Estimate Adequate Platelet Morphology Normal Hypochromasia 1+ Anisocytosis 1+ Macrocytosis 1+ Sodium Level 146 mEQ/L (135-145) H Potassium Level 4.3 mEQ/L (3.4-4.9) Chloride Level 104 mEQ/L (98-107) Carbon Dioxide Level 32 mEQ/L (20-30) H Anion Gap 10 (5-15) Blood Urea Nitrogen 15 mg/dL (7-23) Creatinine 0.3 mg/dL (0.5-0.9) L Estimat Glomerular Filtration Rate mL/min (>60) Glucose Level 95 mg/dL (74-106) Calcium Level 9.2 mg/dL (8.6-10.2) Magnesium Level 1.8 mg/dL (1.7-2.5) Total Bilirubin < 0.2 mg/dL (0.0-1.2) Aspartate Amino Transf (AST/SGOT) 13 U/L (5-40) Alanine Aminotransferase (ALT/SGPT) 5 U/L (3-33) Alkaline Phosphatase 48 U/L (35-104) Total Protein 7.1 g/dL (6.6-8.7) Albumin 2.4 g/dL (3.5-5.2) L Globulin 4.7 g/dL Albumin/Globulin Ratio 0.5 (1.0-2.7) L KAMRAN GUTIERREZ Apr 19, 2017 12:29"
[2017-04-19 16:10] VITALS: BP 106/52
[2017-04-19 20:00] VITALS: BP 112/61
[2017-04-19] MEDS: Dyna-Hex 2% Top Sol 8oz TOPIC SCH (20:47)
[2017-04-19] MEDS: Epogen (for non ESRD use) SUBQ SCH (20:48)
[2017-04-20] VITALS: BP 115/70
[2017-04-20 04:00] VITALS: BP 109/61
[2017-04-20 06:34] LABS: MEAN CORPUSCULAR HEMOGLOBIN 35.7 PG (27.0-31.0); MEAN CORPUSCULAR HGB CONC 32.3 G/DL (32.0-36.0); MEAN CORPUSCULAR VOLUME 111 FL (80-99); MEAN PLATELET VOLUME 7.2 FL (6.5-10.1); PLATELET COUNT 235 K/UL (150-450); RED CELL DISTRIBUTION WIDTH 17.2 % (11.6-14.8)
[2017-04-20 06:58] LABS: ANION GAP 9 (5-15); CARBON DIOXIDE 29 mEQ/L (20-30); CHLORIDE 102 mEQ/L (98-107); CREATININE 0.4 mg/dL (0.5-0.9); HEMOLYSIS 17; POTASSIUM 4.5 mEQ/L (3.4-4.9); SODIUM 140 mEQ/L (135-145)
[2017-04-20 08:16] VITALS: BP 119/55
[2017-04-20] MEDS: Valproic Acid 250mg/5ml Liquid GT SCH ×2 (08:39→21:56)
[2017-04-20] MEDS: Ascorbic Acid 500mg tab GT SCH ×2 (08:40→17:46)
[2017-04-20] MEDS: Docusate 100mg/10ml Liq NG SCH ×2 (08:40→17:46)
[2017-04-20] MEDS: Lacosamide 50mg tablet ORAL SCH ×2 (08:40→21:56)
--- NOTE | 2017-04-20 09:51 | Infectious Diseases Prog Note ---
"Assessment/Plan Assessment/Plan antibiotics : none A 1. protues | e.coli UTI s/p rx 2. pseudomonas pneumonia s/p rx 3. respiratory failure 4. multiple sclerosis 5. seizure disorder P 1. continue off antibiotics Subjective ROS Limited/Unobtainable: Yes Allergies: Coded Allergies: CEFTRIAXONE (Verified Allergy, Unknown, 03/31/17) PENICILLINS (Verified Allergy, Unknown, 03/31/17) SULFA (SULFONAMIDE ANTIBIOTICS) (Verified Allergy, Unknown, 03/31/17) TAZOBACTAM (Verified Allergy, Unknown, 03/31/17) Objective Vital Signs Last 24 Hour Vital Signs Date Time Temp Pulse Resp B/P Pulse Ox O2 Delivery O2 Flow Rate FiO2 04/20/17 08:16 97.7 85 16 119/55 98 Nasal Cannula 04/20/17 04:00 98.4 83 20 109/61 97 Nasal Cannula 2.0 04/20/17 00:00 98.6 97 20 115/70 95 Nasal Cannula 2.0 04/19/17 20:00 98.8 100 20 112/61 96 Room Air 04/19/17 19:15 Nasal Cannula 3.0 04/19/17 19:15 96 Nasal Cannula 3.0 04/19/17 16:10 98.1 89 19 106/52 96 Nasal Cannula 2.0 04/19/17 12:04 98.2 96 20 151/70 98 Nasal Cannula 2.0 Height (Feet): 5 Height (Inches): 3.00 Weight (Pounds): 237 Respiratory/Chest: lungs clear Cardiovascular: normal rate, regular rhythm, no gallop/murmur Abdomen: soft, non tender, other - GT Extremities: other - + edema, right arm PICC Laboratory Tests Test 04/20/17 05:55 White Blood Count 4.0 K/UL (4.8-10.8) L Red Blood Count 2.80 M/UL (4.20-5.40) L Hemoglobin 10.0 G/DL (12.0-16.0) L Hematocrit 31.0 % (37.0-47.0) L Mean Corpuscular Volume 111 FL (80-99) H Mean Corpuscular Hemoglobin 35.7 PG (27.0-31.0) H Mean Corpuscular Hemoglobin Concent 32.3 G/DL (32.0-36.0) Red Cell Distribution Width 17.2 % (11.6-14.8) H Platelet Count 235 K/UL (150-450) Mean Platelet Volume 7.2 FL (6.5-10.1) Neutrophils (%) (Auto) % (45.0-75.0) Lymphocytes (%) (Auto) % (20.0-45.0) Monocytes (%) (Auto) % (1.0-10.0) Eosinophils (%) (Auto) % (0.0-3.0) Basophils (%) (Auto) % (0.0-2.0) Sodium Level 140 mEQ/L (135-145) Potassium Level 4.5 mEQ/L (3.4-4.9) Chloride Level 102 mEQ/L (98-107) Carbon Dioxide Level 29 mEQ/L (20-30) Anion Gap 9 (5-15) Blood Urea Nitrogen 16 mg/dL (7-23) Creatinine 0.4 mg/dL (0.5-0.9) L Estimat Glomerular Filtration Rate mL/min (>60) Glucose Level 91 mg/dL (74-106) Calcium Level 9.0 mg/dL (8.6-10.2) KAMRAN GUTIERREZ Apr 20, 2017 09:51"
--- NOTE | 2017-04-20 10:49 | Critical Care Progress Note ---
Assessment/Plan Assessment/Plan IMPRESSION: 1. Respiratory failure . 2. Hypoxemia. 3. Evidence of pulmonary infiltrates consistent with pneumonia. 4. Hypotension. 5. Quadriparesis. 6. Bedbound state. 7. deep venous thrombosis. 8. Gastrostomy tube. 9. Known aspiration. 10. UTI 11. diarrhea 12. thrombocytopenia 13. hypernatremia 14. worsening anemia 15. leukopenia PLAN stable on oxygen and current respiratory status systems reviewed no distress or congestion at present improved WBC monitor for respiratory congestion nutrition with caution aspiration precautions dc planning per primary team medications/laboratory data/nursing notes reviewed in detail note reviewed and edited care discussed with RN and RT Critical Care - Subjective Interval Events: wbc improved no distress ROS Limited/Unobtainable: Yes EKG Rhythm: Sinus Rhythm Residuals: minimal Tube Feeding Tolerated: yes I&O: Intake and Output 04/19/17 04/20/17 19:00 07:00 Intake Total 555 ml 1510 ml Output Total 750 ml Balance -195 ml 1510 ml Free Water 60 ml 120 ml IV Total 900 ml Tube Feeding 495 ml 490 ml Output Urine Total 750 ml # Bowel Movements 1 Critical Care - Objective ET-Tube: 7.5 ET Position: 20 Last 24 Hour Vital Signs Date Time Temp Pulse Resp B/P Pulse Ox O2 Delivery O2 Flow Rate FiO2 04/20/17 08:16 97.7 85 16 119/55 98 Nasal Cannula 04/20/17 04:00 98.4 83 20 109/61 97 Nasal Cannula 2.0 04/20/17 00:00 98.6 97 20 115/70 95 Nasal Cannula 2.0 04/19/17 20:00 98.8 100 20 112/61 96 Room Air 04/19/17 19:15 Nasal Cannula 3.0 04/19/17 19:15 96 Nasal Cannula 3.0 04/19/17 16:10 98.1 89 19 106/52 96 Nasal Cannula 2.0 04/19/17 12:04 98.2 96 20 151/70 98 Nasal Cannula 2.0 Labs: Labs Test 04/17/17 15:30 04/19/17 05:10 04/20/17 05:55 White Blood Count 2.7 K/UL (4.8-10.8) 2.7 K/UL (4.8-10.8) 4.0 K/UL (4.8-10.8) Red Blood Count 2.57 M/UL (4.20-5.40) 3.06 M/UL (4.20-5.40) 2.80 M/UL (4.20-5.40) Hemoglobin 9.1 G/DL (12.0-16.0) 10.7 G/DL (12.0-16.0) 10.0 G/DL (12.0-16.0) Hematocrit 28.3 % (37.0-47.0) 33.8 % (37.0-47.0) 31.0 % (37.0-47.0) Mean Corpuscular Volume 110 FL (80-99) 111 FL (80-99) 111 FL (80-99) Mean Corpuscular Hemoglobin 35.4 PG (27.0-31.0) 34.9 PG (27.0-31.0) 35.7 PG (27.0-31.0) Mean Corpuscular Hemoglobin Concent 32.2 G/DL (32.0-36.0) 31.5 G/DL (32.0-36.0) 32.3 G/DL (32.0-36.0) Red Cell Distribution Width 17.7 % (11.6-14.8) 17.3 % (11.6-14.8) 17.2 % (11.6-14.8) Platelet Count 195 K/UL (150-450) 217 K/UL (150-450) 235 K/UL (150-450) Mean Platelet Volume 7.0 FL (6.5-10.1) 7.0 FL (6.5-10.1) 7.2 FL (6.5-10.1) Neutrophils (%) (Auto) 41.8 % (45.0-75.0) % (45.0-75.0) % (45.0-75.0) Lymphocytes (%) (Auto) 44.5 % (20.0-45.0) % (20.0-45.0) % (20.0-45.0) Monocytes (%) (Auto) 10.2 % (1.0-10.0) % (1.0-10.0) % (1.0-10.0) Eosinophils (%) (Auto) 1.7 % (0.0-3.0) % (0.0-3.0) % (0.0-3.0) Basophils (%) (Auto) 1.8 % (0.0-2.0) % (0.0-2.0) % (0.0-2.0) Differential Total Cells Counted 100 Neutrophils % (Manual) 49 % (45-75) Lymphocytes % (Manual) 41 % (20-45) Monocytes % (Manual) 9 % (1-10) Eosinophils % (Manual) 1 % (0-3) Basophils % (Manual) 0 % (0-2) Band Neutrophils 0 % (0-8) Platelet Estimate Adequate Platelet Morphology Normal Hypochromasia 1+ Anisocytosis 1+ Macrocytosis 1+ Sodium Level 146 mEQ/L (135-145) 140 mEQ/L (135-145) Potassium Level 4.3 mEQ/L (3.4-4.9) 4.5 mEQ/L (3.4-4.9) Chloride Level 104 mEQ/L (98-107) 102 mEQ/L (98-107) Carbon Dioxide Level 32 mEQ/L (20-30) 29 mEQ/L (20-30) Anion Gap 10 (5-15) 9 (5-15) Blood Urea Nitrogen 15 mg/dL (7-23) 16 mg/dL (7-23) Creatinine 0.3 mg/dL (0.5-0.9) 0.4 mg/dL (0.5-0.9) Estimat Glomerular Filtration Rate mL/min (>60) mL/min (>60) Glucose Level 95 mg/dL (74-106) 91 mg/dL (74-106) Calcium Level 9.2 mg/dL (8.6-10.2) 9.0 mg/dL (8.6-10.2) Magnesium Level 1.8 mg/dL (1.7-2.5) Total Bilirubin < 0.2 mg/dL (0.0-1.2) Aspartate Amino Transf (AST/SGOT) 13 U/L (5-40) Alanine Aminotransferase (ALT/SGPT) 5 U/L (3-33) Alkaline Phosphatase 48 U/L (35-104) Total Protein 7.1 g/dL (6.6-8.7) Albumin 2.4 g/dL (3.5-5.2) Globulin 4.7 g/dL Albumin/Globulin Ratio 0.5 (1.0-2.7) Objective: GENERAL: The patient is a well-developed female, on oxygen HEENT: Negative. reduced gag NECK: Supple. no JVD LUNGS: Moderate breath sounds. no rhonchi noted. no wheeze; symmetric; no change CARDIAC: S1 and S2. Regular rate and rhythm.without MRG ABDOMEN: Soft and nontender. The patient has a G-tube in place . no HSM Extremities: No cyanosis or clubbing. noted contractures. Quadriparesis. overall same skin noted reviewed and edited Accucheck: 195 SANCHEZ NAVARRETE Apr 20, 2017 10:49
[2017-04-20 11:56] VITALS: BP 125/63
[2017-04-20 17:00] VITALS: BP 122/53
[2017-04-20 20:00] VITALS: BP 144/65
--- NOTE | 2017-04-20 21:45 | Progress Note ---
DATE: 04/19/2017 CARDIOLOGY PROGRESS NOTE Late entry 04/19/2017 SUBJECTIVE: The patient is bedbound, nonverbal, no apparent distress. No respiratory distress noted by staff. OBJECTIVE: VITAL SIGNS: Blood pressure 110/54, pulse 91, respiratory rate 20, afebrile. LUNGS: Diminished breath sounds. No wheezing. HEART: Regular rhythm and rate. Normal S1 and S2. ABDOMEN: Soft. EXTREMITIES: Trace edema. LABORATORY DATA: White count 2.7, hemoglobin 10.7, platelets 217,000. Sodium 146, potassium 4.3, bicarb 32, BUN 15, creatinine 0.3. Albumin 2.4. Magnesium 1.8. IMPRESSION: 1. Status post respiratory failure. 2. Status post sepsis with shock. 3. Chronic encephalopathy. 4. Debility. 5. Aspiration risk. 6. Dehydration. 7. Hypernatremia. 8. Severe protein-calorie malnutrition. 9. Anemia. 10. Leukopenia. 11. DVT. PLAN: Continue off Xarelto white blood cell count. Consider re-initiation of warfarin. Nick Gilbert M.D. DR: Anup JOB#: [id number] CC:
[2017-04-20] MEDS: Dyna-Hex 2% Top Sol 8oz TOPIC SCH (21:56)
--- NOTE | 2017-04-20 22:00 | Progress Note ---
DATE: 04/20/2017 CARDIOLOGY PROGRESS NOTE SUBJECTIVE: The patient without new distress, tolerating feedings. No signs of bleeding, remains off anticoagulation. Xarelto has been held due to leukopenia. OBJECTIVE: VITAL SIGNS: Blood pressure 122/53, pulse 79, respiratory rate 16, afebrile. NECK: Supple. LUNGS: Good breath sounds. CARDIAC: Regular rate. Normal S1 and S2. ABDOMEN: Soft. EXTREMITIES: Trace edema. LABORATORY AND DIAGNOSTIC DATA: White count 4, hemoglobin 10. Potassium 4.5. Sodium 140, bicarbonate 29, BUN 16, creatinine 0.4. IMPRESSION: 1. Leukopenia, improved off Xarelto. 2. Deep venous thrombosis. 3. Paroxysmal atrial fibrillation. 4. Dehydration. 5. Hypernatremia, resolved. 6. Status post sepsis with shock. 7. Severe protein-calorie malnutrition. 8. Acute on chronic diastolic congestive heart failure compensated. PLAN: 1. Discontinue IV fluids. 2. Nutritional support by feeding tube. 3. Xarelto, start warfarin. 4. Recheck INR and see discharge planning. Nick Gilbert M.D. DR: Anup JOB#: [id number] CC:
[2017-04-21] VITALS: BP 102/48
[2017-04-21 04:00] VITALS: BP 131/64
[2017-04-21 07:32] LABS: MEAN CORPUSCULAR HGB CONC 30.7 G/DL (32.0-36.0); MEAN CORPUSCULAR VOLUME 111 FL (80-99); MEAN PLATELET VOLUME 6.9 FL (6.5-10.1); PLATELET COUNT 220 K/UL (150-450); RED BLOOD COUNT 2.81 M/UL (4.20-5.40); RED CELL DISTRIBUTION WIDTH 16.8 % (11.6-14.8); WHITE BLOOD COUNT 2.8 K/UL (4.8-10.8)
[2017-04-21 07:53] LABS: INR 0.9 (0.9-1.1); PROTHROMBIN TIME 9.7 SEC (9.30-11.50)
[2017-04-21 08:00] VITALS: BP 124/65
[2017-04-21 08:02] LABS: ANION GAP 9 (5-15); CALCIUM 9.1 mg/dL (8.6-10.2); CARBON DIOXIDE 31 mEQ/L (20-30); CHLORIDE 104 mEQ/L (98-107); CREATININE 0.3 mg/dL (0.5-0.9); HEMOLYSIS 4; POTASSIUM 4.1 mEQ/L (3.4-4.9); SODIUM 144 mEQ/L (135-145)
[2017-04-21] MEDS ORDERED: Warfarin Sodium 10mg GT ONE (09:30)
[2017-04-21] MEDS: Docusate 100mg/10ml Liq NG SCH ×2 (10:34→17:15)
[2017-04-21] MEDS: Ascorbic Acid 500mg tab GT SCH ×2 (10:34→17:15)
[2017-04-21] MEDS: Lacosamide 50mg tablet ORAL SCH ×2 (10:34→20:51)
--- NOTE | 2017-04-21 10:34 | Critical Care Progress Note ---
Assessment/Plan Assessment/Plan IMPRESSION: 1. Respiratory failure . 2. Hypoxemia. 3. Evidence of pulmonary infiltrates consistent with pneumonia. 4. Hypotension. 5. Quadriparesis. 6. Bedbound state. 7. deep venous thrombosis. 8. Gastrostomy tube. 9. Known aspiration. 10. UTI 11. diarrhea 12. thrombocytopenia 13. hypernatremia 14. worsening anemia 15. leukopenia PLAN stable on oxygen and current respiratory status systems reviewed and noted no distress or congestion at present improved WBC monitor for respiratory congestion and optimize nutrition with caution aspiration precautions dc planning per primary team likely ok to lower level of care medications/laboratory data/nursing notes reviewed in detail note reviewed and edited care discussed with RN and RT Critical Care - Subjective Condition: stable EKG Rhythm: Sinus Rhythm I&O: Intake and Output 04/20/17 04/21/17 19:00 07:00 Intake Total 1060 ml 825 ml Output Total 450 ml 650 ml Balance 610 ml 175 ml Free Water 400 ml 220 ml Tube Feeding 660 ml 605 ml Output Urine Total 450 ml 650 ml # Bowel Movements 1 Critical Care - Objective ET-Tube: 7.5 ET Position: 20 Last 24 Hour Vital Signs Date Time Temp Pulse Resp B/P Pulse Ox O2 Delivery O2 Flow Rate FiO2 04/21/17 08:00 98.2 94 20 124/65 96 Nasal Cannula 3.0 04/21/17 07:58 Nasal Cannula 3.0 04/21/17 07:57 96 Nasal Cannula 3.0 32 04/21/17 04:00 97.7 92 20 131/64 93 Nasal Cannula 2.0 04/21/17 00:00 97.9 94 20 102/48 95 Nasal Cannula 2.0 04/20/17 20:00 97.9 86 22 144/65 96 Nasal Cannula 2.0 04/20/17 19:28 97 Nasal Cannula 3.0 32 04/20/17 19:28 Nasal Cannula 3.0 04/20/17 17:00 97.3 79 16 122/53 99 Nasal Cannula 04/20/17 11:56 97.9 18 15 125/63 98 Room Air Labs: Labs Test 04/19/17 05:10 04/20/17 05:55 04/21/17 06:15 04/21/17 07:00 White Blood Count 2.7 K/UL (4.8-10.8) 4.0 K/UL (4.8-10.8) 2.8 K/UL (4.8-10.8) Red Blood Count 3.06 M/UL (4.20-5.40) 2.80 M/UL (4.20-5.40) 2.81 M/UL (4.20-5.40) Hemoglobin 10.7 G/DL (12.0-16.0) 10.0 G/DL (12.0-16.0) 9.5 G/DL (12.0-16.0) Hematocrit 33.8 % (37.0-47.0) 31.0 % (37.0-47.0) 31.1 % (37.0-47.0) Mean Corpuscular Volume 111 FL (80-99) 111 FL (80-99) 111 FL (80-99) Mean Corpuscular Hemoglobin 34.9 PG (27.0-31.0) 35.7 PG (27.0-31.0) 34.0 PG (27.0-31.0) Mean Corpuscular Hemoglobin Concent 31.5 G/DL (32.0-36.0) 32.3 G/DL (32.0-36.0) 30.7 G/DL (32.0-36.0) Red Cell Distribution Width 17.3 % (11.6-14.8) 17.2 % (11.6-14.8) 16.8 % (11.6-14.8) Platelet Count 217 K/UL (150-450) 235 K/UL (150-450) 220 K/UL (150-450) Mean Platelet Volume 7.0 FL (6.5-10.1) 7.2 FL (6.5-10.1) 6.9 FL (6.5-10.1) Neutrophils (%) (Auto) % (45.0-75.0) % (45.0-75.0) % (45.0-75.0) Lymphocytes (%) (Auto) % (20.0-45.0) % (20.0-45.0) % (20.0-45.0) Monocytes (%) (Auto) % (1.0-10.0) % (1.0-10.0) % (1.0-10.0) Eosinophils (%) (Auto) % (0.0-3.0) % (0.0-3.0) % (0.0-3.0) Basophils (%) (Auto) % (0.0-2.0) % (0.0-2.0) % (0.0-2.0) Differential Total Cells Counted 100 Neutrophils % (Manual) 49 % (45-75) Lymphocytes % (Manual) 41 % (20-45) Monocytes % (Manual) 9 % (1-10) Eosinophils % (Manual) 1 % (0-3) Basophils % (Manual) 0 % (0-2) Band Neutrophils 0 % (0-8) Platelet Estimate Adequate Platelet Morphology Normal Hypochromasia 1+ Anisocytosis 1+ Macrocytosis 1+ Sodium Level 146 mEQ/L (135-145) 140 mEQ/L (135-145) 144 mEQ/L (135-145) Potassium Level 4.3 mEQ/L (3.4-4.9) 4.5 mEQ/L (3.4-4.9) 4.1 mEQ/L (3.4-4.9) Chloride Level 104 mEQ/L (98-107) 102 mEQ/L (98-107) 104 mEQ/L (98-107) Carbon Dioxide Level 32 mEQ/L (20-30) 29 mEQ/L (20-30) 31 mEQ/L (20-30) Anion Gap 10 (5-15) 9 (5-15) 9 (5-15) Blood Urea Nitrogen 15 mg/dL (7-23) 16 mg/dL (7-23) 16 mg/dL (7-23) Creatinine 0.3 mg/dL (0.5-0.9) 0.4 mg/dL (0.5-0.9) 0.3 mg/dL (0.5-0.9) Estimat Glomerular Filtration Rate mL/min (>60) mL/min (>60) mL/min (>60) Glucose Level 95 mg/dL (74-106) 91 mg/dL (74-106) 112 mg/dL (74-106) Calcium Level 9.2 mg/dL (8.6-10.2) 9.0 mg/dL (8.6-10.2) 9.1 mg/dL (8.6-10.2) Magnesium Level 1.8 mg/dL (1.7-2.5) Total Bilirubin < 0.2 mg/dL (0.0-1.2) Aspartate Amino Transf (AST/SGOT) 13 U/L (5-40) Alanine Aminotransferase (ALT/SGPT) 5 U/L (3-33) Alkaline Phosphatase 48 U/L (35-104) Total Protein 7.1 g/dL (6.6-8.7) Albumin 2.4 g/dL (3.5-5.2) Globulin 4.7 g/dL Albumin/Globulin Ratio 0.5 (1.0-2.7) Prothrombin Time 9.7 SEC (9.30-11.50) Prothromb Time International Ratio 0.9 (0.9-1.1) Objective: GENERAL: The patient is a well-developed female, on oxygen, NAD HEENT: Negative. reduced gag NECK: Supple. no JVD LUNGS: Moderate breath sounds. no rhonchi noted. no wheeze; symmetric; no change from prior CARDIAC: S1 and S2. Regular rate and rhythm.without MRG ABDOMEN: Soft and nontender. The patient has a G-tube in place . no HSM no distention Extremities: No cyanosis or clubbing. noted contractures. Quadriparesis. overall same skin noted reviewed and edited Accucheck: SANCHEZ RIOS Apr 21, 2017 10:34
[2017-04-21 10:44] LABS: ANISOCYTOSIS 1+; BAND NEUTROPHILS % (MANUAL) 1 % (0-8); BASOPHILS % (MANUAL) 1 % (0-2); EOSINOPHILS % (MANUAL) 4 % (0-3); LYMPHOCYTES % (MANUAL) 32 % (20-45); MYELOCYTES % 1 % (0-0); NEUTROPHILS % (MANUAL) 49 % (45-75); PLATELET ESTIMATE ADEQUATE; PLATELET MORPHOLOGY NORMAL; TOTAL CELLS COUNTED 100
[2017-04-21 10:45] LABS: MACROCYTES 1+
[2017-04-21 10:47] LABS: HYPOCHROMASIA 1+
[2017-04-21] MEDS: Valproic Acid 250mg/5ml Liquid GT SCH ×2 (11:13→20:51)
--- NOTE | 2017-04-21 11:54 | Infectious Diseases Prog Note ---
"Assessment/Plan Assessment/Plan antibiotics : none A 1. protues | e.coli UTI s/p rx 2. pseudomonas pneumonia s/p rx 3. respiratory failure 4. multiple sclerosis 5. seizure disorder P 1. continue off antibiotics Subjective ROS Limited/Unobtainable: Yes Allergies: Coded Allergies: CEFTRIAXONE (Verified Allergy, Unknown, 03/31/17) PENICILLINS (Verified Allergy, Unknown, 03/31/17) SULFA (SULFONAMIDE ANTIBIOTICS) (Verified Allergy, Unknown, 03/31/17) TAZOBACTAM (Verified Allergy, Unknown, 03/31/17) Objective Vital Signs Last 24 Hour Vital Signs Date Time Temp Pulse Resp B/P Pulse Ox O2 Delivery O2 Flow Rate FiO2 04/21/17 08:00 98.2 94 20 124/65 96 Nasal Cannula 3.0 04/21/17 07:58 Nasal Cannula 3.0 04/21/17 07:57 96 Nasal Cannula 3.0 32 04/21/17 04:00 97.7 92 20 131/64 93 Nasal Cannula 2.0 04/21/17 00:00 97.9 94 20 102/48 95 Nasal Cannula 2.0 04/20/17 20:00 97.9 86 22 144/65 96 Nasal Cannula 2.0 04/20/17 19:28 97 Nasal Cannula 3.0 32 04/20/17 19:28 Nasal Cannula 3.0 04/20/17 17:00 97.3 79 16 122/53 99 Nasal Cannula 04/20/17 11:56 97.9 18 15 125/63 98 Room Air Height (Feet): 5 Height (Inches): 3.00 Weight (Pounds): 237 Respiratory/Chest: lungs clear Cardiovascular: normal rate, regular rhythm, no gallop/murmur Abdomen: soft, non tender, other - GT Extremities: other - + edema, right arm PICC Laboratory Tests Test 04/21/17 06:15 04/21/17 07:00 White Blood Count 2.8 K/UL (4.8-10.8) L Red Blood Count 2.81 M/UL (4.20-5.40) L Hemoglobin 9.5 G/DL (12.0-16.0) L Hematocrit 31.1 % (37.0-47.0) L Mean Corpuscular Volume 111 FL (80-99) H Mean Corpuscular Hemoglobin 34.0 PG (27.0-31.0) H Mean Corpuscular Hemoglobin Concent 30.7 G/DL (32.0-36.0) L Red Cell Distribution Width 16.8 % (11.6-14.8) H Platelet Count 220 K/UL (150-450) Mean Platelet Volume 6.9 FL (6.5-10.1) Neutrophils (%) (Auto) % (45.0-75.0) Lymphocytes (%) (Auto) % (20.0-45.0) Monocytes (%) (Auto) % (1.0-10.0) Eosinophils (%) (Auto) % (0.0-3.0) Basophils (%) (Auto) % (0.0-2.0) Differential Total Cells Counted 100 Neutrophils % (Manual) 49 % (45-75) Lymphocytes % (Manual) 32 % (20-45) Monocytes % (Manual) 12 % (1-10) H Eosinophils % (Manual) 4 % (0-3) H Basophils % (Manual) 1 % (0-2) Myelocytes % 1 % (0-0) H Band Neutrophils 1 % (0-8) Platelet Estimate Adequate Platelet Morphology Normal Hypochromasia 1+ Anisocytosis 1+ Macrocytosis 1+ Sodium Level 144 mEQ/L (135-145) Potassium Level 4.1 mEQ/L (3.4-4.9) Chloride Level 104 mEQ/L (98-107) Carbon Dioxide Level 31 mEQ/L (20-30) H Anion Gap 9 (5-15) Blood Urea Nitrogen 16 mg/dL (7-23) Creatinine 0.3 mg/dL (0.5-0.9) L Estimat Glomerular Filtration Rate mL/min (>60) Glucose Level 112 mg/dL (74-106) H Calcium Level 9.1 mg/dL (8.6-10.2) Prothrombin Time 9.7 SEC (9.30-11.50) Prothromb Time International Ratio 0.9 (0.9-1.1) KAMRAN GUTIERREZ Apr 21, 2017 11:54"
[2017-04-21 12:00] VITALS: BP 126/75
[2017-04-21 16:00] VITALS: BP 123/86
[2017-04-21 20:27] VITALS: BP 115/50
[2017-04-21] MEDS: Epogen (for non ESRD use) SUBQ SCH (20:50)
[2017-04-21] MEDS: Dyna-Hex 2% Top Sol 8oz TOPIC SCH (20:52)
--- NOTE | 2017-04-21 22:30 | Progress Note ---
DATE: 04/21/2017 INTERNAL MEDICINE PROGRESS NOTE SUBJECTIVE: No new distress. The patient is on warfarin. No signs of bleeding. INR remains subtherapeutic. OBJECTIVE: VITAL SIGNS: Blood pressure 124/65, pulse 94, respiratory rate 20, and afebrile. LUNGS: Bilateral breath sounds. HEART: Regular rhythm and rate. Normal S1 and S2. ABDOMEN: Soft. G-tube site is intact. EXTREMITIES: Trace edema. LABORATORY DATA: White count 2.8 and hemoglobin 9.5. BUN 16 and creatinine 0.3. Differential notable for increasing monocytosis. IMPRESSION: 1. Leukopenia. 2. Anemia. 3. Deep venous thrombosis. 4. Quadriparesis. 5. Status post respiratory failure due to pneumonia and hypovolemia. PLAN: 1. Continue warfarin to INR goal of 2 to 3. 2. Monitor blood counts. 3. Slight improvement in white blood cell count noted off Xarelto. 4. If stable over the next 24 to 48 hours, may be able to discharge to long term facility and with observation and monitor CBC surely there. Nick Gilbert M.D. DR: CYNDIE JOB#: [id number] CC:
[2017-04-22] VITALS: BP 157/72
[2017-04-22 04:00] VITALS: BP 116/63
[2017-04-22 07:09] LABS: MEAN CORPUSCULAR HEMOGLOBIN 34.7 PG (27.0-31.0); MEAN CORPUSCULAR HGB CONC 31.2 G/DL (32.0-36.0); MEAN CORPUSCULAR VOLUME 111 FL (80-99); PLATELET COUNT 233 K/UL (150-450); RED BLOOD COUNT 2.76 M/UL (4.20-5.40); RED CELL DISTRIBUTION WIDTH 17.1 % (11.6-14.8); WHITE BLOOD COUNT 3.9 K/UL (4.8-10.8)
[2017-04-22 08:02] VITALS: BP 119/76
--- NOTE | 2017-04-22 08:51 | Critical Care Progress Note ---
Assessment/Plan Assessment/Plan IMPRESSION: 1. Respiratory failure . 2. Hypoxemia. 3. pneumonia. 4. Hypotension. resolved 5. Quadriparesis. 6. Bedbound state. 7. deep venous thrombosis. 8. Gastrostomy tube. 9. Known aspiration. 10. UTI 11. diarrhea 12. thrombocytopenia 13. hypernatremia 14. worsening anemia 15. leukopenia- improved PLAN same overall systems reviewed and noted no distress or congestion at present monitor for respiratory congestion and optimize nutrition with caution aspiration precautions dc planning medications/laboratory data/nursing notes reviewed in detail note reviewed and edited care discussed with RN and RT Critical Care - Subjective Interval Events: care noted findings noted Condition: stable EKG Rhythm: Sinus Rhythm Residuals: minimal Tube Feeding Tolerated: yes I&O: Intake and Output 04/21/17 04/22/17 19:00 07:00 Intake Total 1060 ml 695 ml Output Total 300 ml 950 ml Balance 760 ml -255 ml Free Water 400 ml 200 ml Tube Feeding 660 ml 495 ml Output Urine Total 300 ml 950 ml # Voids 1 Critical Care - Objective ET-Tube: 7.5 ET Position: 20 Last 24 Hour Vital Signs Date Time Temp Pulse Resp B/P Pulse Ox O2 Delivery O2 Flow Rate FiO2 04/22/17 08:02 97.6 87 20 119/76 96 Nasal Cannula 2.0 04/22/17 04:00 98.1 73 20 116/63 93 Nasal Cannula 3.0 04/22/17 00:00 97.8 91 19 157/72 94 Nasal Cannula 3.0 04/21/17 20:27 98.4 77 18 115/50 93 Nasal Cannula 3.0 04/21/17 19:48 94 Nasal Cannula 2.0 28 04/21/17 19:48 Nasal Cannula 2.0 04/21/17 16:00 98.4 99 20 123/86 96 Nasal Cannula 3.0 04/21/17 12:00 98.2 94 20 126/75 96 Nasal Cannula 3.0 Labs: Labs Test 04/20/17 05:55 04/21/17 06:15 04/21/17 07:00 04/22/17 05:35 White Blood Count 4.0 K/UL (4.8-10.8) 2.8 K/UL (4.8-10.8) 3.9 K/UL (4.8-10.8) Red Blood Count 2.80 M/UL (4.20-5.40) 2.81 M/UL (4.20-5.40) 2.76 M/UL (4.20-5.40) Hemoglobin 10.0 G/DL (12.0-16.0) 9.5 G/DL (12.0-16.0) 9.6 G/DL (12.0-16.0) Hematocrit 31.0 % (37.0-47.0) 31.1 % (37.0-47.0) 30.7 % (37.0-47.0) Mean Corpuscular Volume 111 FL (80-99) 111 FL (80-99) 111 FL (80-99) Mean Corpuscular Hemoglobin 35.7 PG (27.0-31.0) 34.0 PG (27.0-31.0) 34.7 PG (27.0-31.0) Mean Corpuscular Hemoglobin Concent 32.3 G/DL (32.0-36.0) 30.7 G/DL (32.0-36.0) 31.2 G/DL (32.0-36.0) Red Cell Distribution Width 17.2 % (11.6-14.8) 16.8 % (11.6-14.8) 17.1 % (11.6-14.8) Platelet Count 235 K/UL (150-450) 220 K/UL (150-450) 233 K/UL (150-450) Mean Platelet Volume 7.2 FL (6.5-10.1) 6.9 FL (6.5-10.1) 7.0 FL (6.5-10.1) Neutrophils (%) (Auto) % (45.0-75.0) % (45.0-75.0) % (45.0-75.0) Lymphocytes (%) (Auto) % (20.0-45.0) % (20.0-45.0) % (20.0-45.0) Monocytes (%) (Auto) % (1.0-10.0) % (1.0-10.0) % (1.0-10.0) Eosinophils (%) (Auto) % (0.0-3.0) % (0.0-3.0) % (0.0-3.0) Basophils (%) (Auto) % (0.0-2.0) % (0.0-2.0) % (0.0-2.0) Sodium Level 140 mEQ/L (135-145) 144 mEQ/L (135-145) Potassium Level 4.5 mEQ/L (3.4-4.9) 4.1 mEQ/L (3.4-4.9) Chloride Level 102 mEQ/L (98-107) 104 mEQ/L (98-107) Carbon Dioxide Level 29 mEQ/L (20-30) 31 mEQ/L (20-30) Anion Gap 9 (5-15) 9 (5-15) Blood Urea Nitrogen 16 mg/dL (7-23) 16 mg/dL (7-23) Creatinine 0.4 mg/dL (0.5-0.9) 0.3 mg/dL (0.5-0.9) Estimat Glomerular Filtration Rate mL/min (>60) mL/min (>60) Glucose Level 91 mg/dL (74-106) 112 mg/dL (74-106) Calcium Level 9.0 mg/dL (8.6-10.2) 9.1 mg/dL (8.6-10.2) Differential Total Cells Counted 100 Neutrophils % (Manual) 49 % (45-75) Lymphocytes % (Manual) 32 % (20-45) Monocytes % (Manual) 12 % (1-10) Eosinophils % (Manual) 4 % (0-3) Basophils % (Manual) 1 % (0-2) Myelocytes % 1 % (0-0) Band Neutrophils 1 % (0-8) Platelet Estimate Adequate Platelet Morphology Normal Hypochromasia 1+ Anisocytosis 1+ Macrocytosis 1+ Prothrombin Time 9.7 SEC (9.30-11.50) Prothromb Time International Ratio 0.9 (0.9-1.1) Objective: GENERAL: The patient is a well-developed female, on oxygen, NAD HEENT: Negative. reduced gag NECK: Supple. no JVD LUNGS: Moderate breath sounds. no rhonchi noted. no wheeze; symmetric; same CARDIAC: S1 and S2. Regular rate and rhythm.without MRG ABDOMEN: Soft and nontender. The patient has a G-tube in place . no HSM no distention Extremities: No cyanosis or clubbing. noted contractures. Quadriparesis. overall same skin noted reviewed and edited Accucheck: 195 SANCHEZ NAVARRETE Apr 22, 2017 08:51
[2017-04-22 09:58] LABS: ANISOCYTOSIS 1+; BAND NEUTROPHILS % (MANUAL) 0 % (0-8); BASOPHILS % (MANUAL) 1 % (0-2); EOSINOPHILS % (MANUAL) 3 % (0-3); HYPOCHROMASIA 1+; LYMPHOCYTES % (MANUAL) 31 % (20-45); MACROCYTES 2+; NEUTROPHILS % (MANUAL) 56 % (45-75); PLATELET ESTIMATE ADEQUATE; PLATELET MORPHOLOGY NORMAL; TOTAL CELLS COUNTED 100
[2017-04-22] MEDS: Lacosamide 50mg tablet ORAL SCH ×2 (10:25→21:19)
[2017-04-22] MEDS: Ascorbic Acid 500mg tab GT SCH ×2 (10:26→19:16)
[2017-04-22] MEDS: Docusate 100mg/10ml Liq NG SCH ×2 (10:26→19:16)
[2017-04-22] MEDS: Valproic Acid 250mg/5ml Liquid GT SCH ×2 (10:26→21:20)
[2017-04-22 11:41] VITALS: BP 136/60
[2017-04-22 14:23] LABS: INR 1.1 (0.9-1.1); PROTHROMBIN TIME 11.4 SEC (9.30-11.50)
[2017-04-22 16:15] VITALS: BP 136/52
[2017-04-22] MEDS ORDERED: Warfarin Sodium 10mg ORAL ONE (17:00)
[2017-04-22 20:00] VITALS: BP 126/74
[2017-04-22] MEDS: Dyna-Hex 2% Top Sol 8oz TOPIC SCH (21:19)
[2017-04-23] VITALS: BP 136/52
[2017-04-23 04:00] VITALS: BP 150/89
[2017-04-23 06:28] LABS: INR 1.3 (0.9-1.1); PROTHROMBIN TIME 13.4 SEC (9.30-11.50)
[2017-04-23 08:00] VITALS: BP 142/70
[2017-04-23] MEDS: Valproic Acid 250mg/5ml Liquid GT SCH ×2 (09:04→20:36)
[2017-04-23] MEDS: Docusate 100mg/10ml Liq NG SCH ×2 (09:05→17:23)
[2017-04-23] MEDS: Lacosamide 50mg tablet ORAL SCH ×2 (09:05→20:36)
[2017-04-23] MEDS: Ascorbic Acid 500mg tab GT SCH ×2 (09:05→17:23)
--- NOTE | 2017-04-23 10:28 | Infectious Diseases Prog Note ---
Assessment/Plan Assessment/Plan A 1. UTI s/p Rx 2. pneumonia with pseudomonas s/p Rx 3. respiratory failure, extubated 4. multiple sclerosis 5. seizure disorder P; Observe off antibiotic Discontinue PICC line at time of discharge Subjective ROS Limited/Unobtainable: Yes Allergies: Coded Allergies: CEFTRIAXONE (Verified Allergy, Unknown, 03/31/17) PENICILLINS (Verified Allergy, Unknown, 03/31/17) SULFA (SULFONAMIDE ANTIBIOTICS) (Verified Allergy, Unknown, 03/31/17) TAZOBACTAM (Verified Allergy, Unknown, 03/31/17) Objective Vital Signs Last 24 Hour Vital Signs Date Time Temp Pulse Resp B/P Pulse Ox O2 Delivery O2 Flow Rate FiO2 04/23/17 08:00 98.2 94 18 142/70 98 Nasal Cannula 3.0 04/23/17 04:00 98.4 98 18 150/89 97 Nasal Cannula 2.0 04/23/17 00:00 97.0 99 19 136/52 95 Nasal Cannula 2.0 04/22/17 20:00 99.0 97 18 126/74 92 Nasal Cannula 2.0 04/22/17 19:58 Nasal Cannula 3.0 04/22/17 19:58 96 Nasal Cannula 3.0 32 04/22/17 16:15 97.1 93 20 136/52 95 Nasal Cannula 2.0 04/22/17 11:41 97.7 91 20 136/60 95 Nasal Cannula 2.0 Height (Feet): 5 Height (Inches): 3.00 Weight (Pounds): 237 General Appearance: no acute distress HEENT: other - O2 by nasal cannula Respiratory/Chest: lungs clear Cardiovascular: normal rate Abdomen: soft, non tender, other - GT feeding Extremities: other - edema, R arm PICC line Neurologic/Psychiatric: unresponsiveness Laboratory Tests Test 04/22/17 13:50 04/23/17 04:55 Prothrombin Time 11.4 SEC (9.30-11.50) 13.4 SEC (9.30-11.50) H Prothromb Time International Ratio 1.1 (0.9-1.1) 1.3 (0.9-1.1) H Current Medications Medications (Trade) Dose Ordered Sig/Reji Route PRN Reason Start Time Stop Time Status Last Admin Dose Admin Acetaminophen (Tylenol) 650 mg Q4H PRN ORAL Mild Pain/Temp > 100.5 04/11/17 20:45 05/11/17 20:44 Ascorbic Acid (Vitamin C) 500 mg TWICE A DAY GT 04/12/17 09:00 05/12/17 08:59 04/23/17 09:05 Chlorhexidine Gluconate (Sheela-Hex 2%) 1 applic QHS TOPIC 04/13/17 21:00 05/13/17 20:59 04/22/17 21:19 Docusate Sodium (Colace) 100 mg TWICE A DAY NG 04/13/17 18:00 05/13/17 17:59 04/23/17 09:05 Epoetin Carlos (Procrit (for non ESRD use)) 3,000 units WED-WED-WED SUBQ 04/12/17 21:00 05/12/17 20:59 04/21/17 20:50 Lacosamide (Vimpat) 50 mg Q12HR ORAL 04/11/17 22:00 05/11/17 21:59 04/23/17 09:05 Lansoprazole (Prevacid) 30 mg DAILY GT 04/12/17 09:00 05/12/17 08:59 04/23/17 09:05 Levothyroxine Sodium (Synthroid) 75 mcg ACBREAKFAST GT 04/17/17 06:30 05/17/17 06:29 04/23/17 06:35 Magnesium Hydroxide (Mom) 30 ml HSPRN PRN GT Constipation 04/17/17 16:26 05/13/17 15:29 Valproic Acid (Depakene) 1,000 mg Q12HR GT 04/11/17 22:00 05/11/17 21:59 04/23/17 09:04 PARDEEP IRVING Apr 23, 2017 10:28
[2017-04-23 12:23] VITALS: BP 145/68
[2017-04-23 12:37] LABS: MEAN CORPUSCULAR HGB CONC 30.4 G/DL (32.0-36.0); MEAN CORPUSCULAR VOLUME 112 FL (80-99); MEAN PLATELET VOLUME 7.3 FL (6.5-10.1); PLATELET COUNT 234 K/UL (150-450); RED BLOOD COUNT 3.03 M/UL (4.20-5.40); WHITE BLOOD COUNT 4.4 K/UL (4.8-10.8)
[2017-04-23 13:42] LABS: ANISOCYTOSIS 1+; BAND NEUTROPHILS % (MANUAL) 1 % (0-8); BASOPHILS % (MANUAL) 0 % (0-2); EOSINOPHILS % (MANUAL) 3 % (0-3); HYPOCHROMASIA 1+; LYMPHOCYTES % (MANUAL) 25 % (20-45); MACROCYTES 1+; NEUTROPHILS % (MANUAL) 64 % (45-75); PLATELET ESTIMATE ADEQUATE; PLATELET MORPHOLOGY NORMAL; TOTAL CELLS COUNTED 100
[2017-04-23 15:08] LABS: APPEARANCE,URINE VERY CLOUDY; KETONES,URINE NEGATIVE (NEGATIVE); LEUKOCYTE ESTERASE ,URINE 3+ (NEGATIVE); NITRITE,URINE POSITIVE (NEGATIVE); PH,URINE 6.5 (4.5-8.0); PROTEIN,URINE 2+ (NEGATIVE); UROBILINOGEN,URINE NORMAL MG/DL (0.0-1.0)
[2017-04-23 15:28] LABS: RBC,URINE TNTC /HPF (0 - 2); WBC,URINE TNTC /HPF (0 - 2)
[2017-04-23 15:29] LABS: BACTERIA,URINE MANY /HPF; SQUAMOUS EPITHELIAL CELL,UR MODERATE /LPF (NONE/OCC); YEAST,URINE MANY /HPF
[2017-04-23 16:53] VITALS: BP 145/72
[2017-04-23] MEDS ORDERED: Warfarin Sodium 7.5mg ORAL ONE (17:30)
[2017-04-23 20:00] VITALS: BP 129/66
[2017-04-23] MEDS: Dyna-Hex 2% Top Sol 8oz TOPIC SCH (20:35)
[2017-04-23] MEDS: Epogen (for non ESRD use) SUBQ SCH (20:51)
--- NOTE | 2017-04-23 21:15 | Progress Note ---
DATE: 04/23/2017 CARDIOLOGY PROGRESS NOTE SUBJECTIVE: The patient remains without distress. She is off antibiotics. She is tolerating G-tube feedings. She remains afebrile. OBJECTIVE: VITAL SIGNS: Blood pressure 142/70, heart rate 94, and respiratory rate 18. NECK: Supple. LUNGS: With diminished breath sounds. CARDIAC: Regular rhythm and rate. Normal S1 and S2. ABDOMEN: Soft. EXTREMITIES: Trace dependent edema. IMPRESSION: 1. Status post respiratory failure, recovered. 2. Healthcare-acquired pneumonia. 3. Dysphagia with gastrostomy tube. 4. Multiple sclerosis. 5. Leukopenia suspected due to Xarelto. 6. Deep venous thrombosis now on warfarin with INR goal of 2 to 2.5. 7. Chronic diastolic congestive heart failure, compensated. PLAN: 1. Continue warfarin and titrate to therapeutic INR. 2. Followup laboratory studies including CBC. 3. DVT and stress ulcer prophylaxis. 4. Discontinue oxygen. Nick Gilbert M.D. DR: CYNDIE JOB#: [id number] CC:
--- NOTE | 2017-04-23 22:00 | Progress Note ---
DATE: 04/22/2017 CARDIOLOGY AND INTERNAL MEDICINE PROGRESS NOTE Late entry for 04/22/2017. SUBJECTIVE: The patient has no respiratory distress. Discharge planning is in progress. OBJECTIVE: VITAL SIGNS: Blood pressure 119/76, pulse 87, and respirations 20. LUNGS: Diminished breath sounds. HEART: Regular rhythm and rate. Normal S1 and S2. ABDOMEN: Soft. EXTREMITIES: Trace edema. SKIN: No skin breakdown. LABORATORY DATA: White count 3.9 and hemoglobin 9.6. IMPRESSION: 1. Deep venous thrombosis, on warfarin. 2. Status post respiratory failure with stable respiratory parameters presently. 3. Recovered pneumonia due to aspiration. 4. Dysphagia with gastrostomy tube. 5. Leukopenia, better off Xarelto. 6. Anemia, stable. PLAN: 1. Continue warfarin to INR goal 2 to 2.5. 2. Monitor blood counts. 3. Respiratory hygiene. 4. Off antibiotics. 5. Discharge planning. Nick Gilbert M.D. DR: DEMARCUS JOB#: [id number] CC:
[2017-04-24] VITALS: BP 111/56
[2017-04-24 04:00] VITALS: BP 117/76
[2017-04-24 07:46] LABS: ALANINE AMINOTRANSFERASE 5 U/L (3-33); ALBUMIN/GLOBULIN RATIO 0.5 (1.0-2.7); ANION GAP 8 (5-15); ASPARTATE AMINO TRANSFERASE 11 U/L (5-40); CALCIUM 9.2 mg/dL (8.6-10.2); CARBON DIOXIDE 32 mEQ/L (20-30); CHLORIDE 102 mEQ/L (98-107); CREATININE 0.3 mg/dL (0.5-0.9); HEMOLYSIS 4; POTASSIUM 4.3 mEQ/L (3.4-4.9); SODIUM 142 mEQ/L (135-145); TOTAL PROTEIN 7.3 g/dL (6.6-8.7)
[2017-04-24 08:00] VITALS: BP 139/64
[2017-04-24 08:04] LABS: INR 2.3 (0.9-1.1); PROTHROMBIN TIME 24.4 SEC (9.30-11.50)
--- NOTE | 2017-04-24 09:50 | General Progress Note ---
Assessment/Plan Problem List: (1) Seizure disorder ICD Codes: G40.909 - Epilepsy, unspecified, not intractable, without status epilepticus SNOMED: 825663203 (2) ARF (acute renal failure) ICD Codes: N17.9 - Acute kidney failure, unspecified SNOMED: 07115871 Qualifiers: Qualified Codes: N17.9 - Acute kidney failure, unspecified (3) UTI (urinary tract infection) ICD Codes: N39.0 - Urinary tract infection, site not specified SNOMED: 62510004, 62595713 Qualifiers: Qualified Codes: N39.0 - Urinary tract infection, site not specified (4) Pneumonia ICD Codes: J18.9 - Pneumonia, unspecified organism SNOMED: 272021680, 66953889 Qualifiers: Qualified Codes: J18.1 - Lobar pneumonia, unspecified organism (5) Septic shock ICD Codes: A41.9 - Sepsis, unspecified organism; R65.21 - Severe sepsis with septic shock SNOMED: 55198087 (6) Hypoxia ICD Codes: R09.02 - Hypoxemia; R65.21 - Severe sepsis with septic shock SNOMED: 706212664, 49197855 (7) Altered level of consciousness ICD Codes: R40.4 - Transient alteration of awareness SNOMED: 1772810 Status: stable, progressing Assessment/Plan cont gt feeds resp care sz rx coumadin rx monitor for bleeding skin care dc planning in progress Subjective ROS Limited/Unobtainable: No Constitutional: Reports: malaise, weakness HEENT: Reports: no symptoms Cardiovascular: Reports: no symptoms Respiratory: Reports: no symptoms Gastrointestinal/Abdominal: Reports: difficulty swallowing Genitourinary: Reports: no symptoms Neurologic/Psychiatric: Reports: pre-existing deficit, seizure Endocrine: Reports: no symptoms Hematologic/Lymphatic: Reports: no symptoms Allergies: Coded Allergies: CEFTRIAXONE (Verified Allergy, Unknown, 03/31/17) PENICILLINS (Verified Allergy, Unknown, 03/31/17) SULFA (SULFONAMIDE ANTIBIOTICS) (Verified Allergy, Unknown, 03/31/17) TAZOBACTAM (Verified Allergy, Unknown, 03/31/17) All Systems: reviewed and negative except above Subjective no events. alert but confused at responsive at baseline. on gt feeds. no fevers. therapeutic on coumadin. Objective Last 24 Hour Vital Signs Date Time Temp Pulse Resp B/P Pulse Ox O2 Delivery O2 Flow Rate FiO2 04/24/17 08:00 97.2 292 18 139/64 99 Nasal Cannula 3.0 04/24/17 04:00 98.2 95 20 117/76 Nasal Cannula 2.0 04/24/17 00:00 98.1 88 20 111/56 98 Nasal Cannula 2.0 04/23/17 20:00 98.4 88 20 129/66 91 Nasal Cannula 04/23/17 19:48 96 Nasal Cannula 3.0 32 04/23/17 19:48 Nasal Cannula 3.0 32 04/23/17 16:53 98.1 92 18 145/72 96 Nasal Cannula 04/23/17 12:23 98.1 88 18 145/68 97 Nasal Cannula Intake and Output 04/23/17 04/24/17 19:00 07:00 Intake Total 720 ml 1010 ml Output Total 350 ml Balance 370 ml 1010 ml Free Water 60 ml 300 ml Tube Feeding 660 ml 660 ml Blood Product 50 ml Output Urine Total 350 ml # Voids 3 Laboratory Tests 04/23/17 14:35: Urine Color Yellow, Urine Appearance Very cloudy, Urine pH 6.5, Urine Specific [place] 1.010, Urine Protein 2+H, Urine Glucose (UA) Negative, Urine Ketones Negative, Urine Occult Blood 4+H, Urine Nitrite PositiveH, Urine Bilirubin Negative, Urine Urobilinogen Normal, Urine Leukocyte Esterase 3+H, Urine RBC TntcH, Urine WBC TntcH, Urine Squamous Epithelial Cells ModerateH, Urine Bacteria ManyH, Urine Yeast ManyH 04/24/17 06:30: Prothrombin Time 24.4H, Prothromb Time International Ratio 2.3H, Sodium Level 142, Potassium Level 4.3, Chloride Level 102, Carbon Dioxide Level 32H, Anion Gap 8, Blood Urea Nitrogen 16, Creatinine 0.3L, Estimat Glomerular Filtration Rate , Glucose Level 97, Calcium Level 9.2, Magnesium Level 2.0, Total Bilirubin < 0.2, Aspartate Amino Transf (AST/SGOT) 11, Alanine Aminotransferase (ALT/SGPT) 5, Alkaline Phosphatase 47, Pro-B-Type Natriuretic Peptide 259H, Total Protein 7.3, Albumin 2.6L, Globulin 4.7, Albumin/Globulin Ratio 0.5L Height (Feet): 5 Height (Inches): 3.00 Weight (Pounds): 237 Objective General Appearance: WD/WN, confused Neck: supple Cardiovascular: normal rate, regular rhythm Respiratory/Chest: chest wall non-tender, no respiratory distress, no accessory muscle use, rhonchi - bilaterally Abdomen: normal bowel sounds, non tender, soft, no organomegaly Edema: no edema noted Arm (L), no edema noted Arm (R), no edema noted Leg (L), no edema noted Leg (R), no edema noted Pedal (L), no edema noted Pedal (R), no edema noted Generalized Neurologic: disoriented BREANNE SORIA Apr 24, 2017 09:50
--- NOTE | 2017-04-24 09:53 | Critical Care Progress Note ---
Assessment/Plan Assessment/Plan IMPRESSION: 1. Respiratory failure . 2. Hypoxemia. 3. pneumonia. 4. Hypotension. resolved 5. Quadriparesis. 6. Bedbound state. 7. deep venous thrombosis. 8. Gastrostomy tube. 9. Known aspiration. 10. UTI 11. diarrhea 12. thrombocytopenia 13. hypernatremia 14. worsening anemia 15. leukopenia- improved PLAN exam stable systems reviewed and noted no distress or congestion at present monitor for respiratory congestion and optimize nutrition with caution aspiration precautions dc planning monitor imaging as needed medications/laboratory data/nursing notes reviewed in detail note reviewed and edited care discussed with RN and RT Critical Care - Subjective ROS Limited/Unobtainable: Yes Condition: stable EKG Rhythm: Sinus Rhythm I&O: Intake and Output 04/23/17 04/24/17 19:00 07:00 Intake Total 720 ml 1010 ml Output Total 350 ml Balance 370 ml 1010 ml Free Water 60 ml 300 ml Tube Feeding 660 ml 660 ml Blood Product 50 ml Output Urine Total 350 ml # Voids 3 Critical Care - Objective ET-Tube: 7.5 ET Position: 20 Last 24 Hour Vital Signs Date Time Temp Pulse Resp B/P Pulse Ox O2 Delivery O2 Flow Rate FiO2 04/24/17 08:00 97.2 292 18 139/64 99 Nasal Cannula 3.0 04/24/17 04:00 98.2 95 20 117/76 Nasal Cannula 2.0 04/24/17 00:00 98.1 88 20 111/56 98 Nasal Cannula 2.0 04/23/17 20:00 98.4 88 20 129/66 91 Nasal Cannula 04/23/17 19:48 96 Nasal Cannula 3.0 32 04/23/17 19:48 Nasal Cannula 3.0 32 04/23/17 16:53 98.1 92 18 145/72 96 Nasal Cannula 04/23/17 12:23 98.1 88 18 145/68 97 Nasal Cannula Labs: Laboratory Tests Test 04/23/17 14:35 04/24/17 06:30 Urine Color Yellow Urine Appearance Very cloudy Urine pH 6.5 (4.5-8.0) Urine Specific [place] 1.010 (1.005-1.035) Urine Protein 2+ (NEGATIVE) H Urine Glucose (UA) Negative (NEGATIVE) Urine Ketones Negative (NEGATIVE) Urine Occult Blood 4+ (NEGATIVE) H Urine Nitrite Positive (NEGATIVE) H Urine Bilirubin Negative (NEGATIVE) Urine Urobilinogen Normal MG/DL (0.0-1.0) Urine Leukocyte Esterase 3+ (NEGATIVE) H Urine RBC Tntc /HPF (0 - 2) H Urine WBC Tntc /HPF (0 - 2) H Urine Squamous Epithelial Cells Moderate /LPF (NONE/OCC) H Urine Bacteria Many /HPF (NONE) H Urine Yeast Many /HPF (NONE) H Prothrombin Time 24.4 SEC (9.30-11.50) H Prothromb Time International Ratio 2.3 (0.9-1.1) H Sodium Level 142 mEQ/L (135-145) Potassium Level 4.3 mEQ/L (3.4-4.9) Chloride Level 102 mEQ/L (98-107) Carbon Dioxide Level 32 mEQ/L (20-30) H Anion Gap 8 (5-15) Blood Urea Nitrogen 16 mg/dL (7-23) Creatinine 0.3 mg/dL (0.5-0.9) L Estimat Glomerular Filtration Rate mL/min (>60) Glucose Level 97 mg/dL (74-106) Calcium Level 9.2 mg/dL (8.6-10.2) Magnesium Level 2.0 mg/dL (1.7-2.5) Total Bilirubin < 0.2 mg/dL (0.0-1.2) Aspartate Amino Transf (AST/SGOT) 11 U/L (5-40) Alanine Aminotransferase (ALT/SGPT) 5 U/L (3-33) Alkaline Phosphatase 47 U/L (35-104) Pro-B-Type Natriuretic Peptide 259 pg/mL (0-125) H Total Protein 7.3 g/dL (6.6-8.7) Albumin 2.6 g/dL (3.5-5.2) L Globulin 4.7 g/dL Albumin/Globulin Ratio 0.5 (1.0-2.7) L Objective: GENERAL: The patient is a well-developed female, on oxygen, NAD HEENT: Negative. NECK: Supple. no JVD LUNGS: Moderate breath sounds. no rhonchi noted. no wheeze; symmetric; same CARDIAC: S1 and S2. Regular rate and rhythm.without MRG ABDOMEN: Soft and nontender. The patient has a G-tube in place . no HSM no distention Extremities: No cyanosis or clubbing. noted contractures. Quadriparesis. overall same skin noted reviewed and edited Accucheck: 195 SANCHEZ NAVARRETE Apr 24, 2017 09:53
[2017-04-24] MEDS: Valproic Acid 250mg/5ml Liquid GT SCH ×2 (10:02→20:48)
[2017-04-24] MEDS: Lacosamide 50mg tablet ORAL SCH ×2 (10:03→20:47)
[2017-04-24] MEDS: Ascorbic Acid 500mg tab GT SCH ×2 (10:03→17:55)
[2017-04-24] MEDS: Docusate 100mg/10ml Liq NG SCH ×2 (10:49→17:55)
[2017-04-24 12:00] VITALS: BP 138/71
[2017-04-24 16:00] VITALS: BP 130/60
[2017-04-24] MEDS ORDERED: Warfarin Sodium 2.5mg ORAL ONE (17:00)
[2017-04-24] MEDS: Dyna-Hex 2% Top Sol 8oz TOPIC SCH (20:48)
[2017-04-24] MEDS ORDERED: D5NS 1,000 ML IV SCH (22:00)
[2017-04-25] VITALS: BP 121/55
[2017-04-25 04:00] VITALS: BP 117/63
[2017-04-25 07:26] LABS: MEAN CORPUSCULAR HEMOGLOBIN 33.8 PG (27.0-31.0); MEAN CORPUSCULAR HGB CONC 30.4 G/DL (32.0-36.0); MEAN CORPUSCULAR VOLUME 111 FL (80-99); MEAN PLATELET VOLUME 6.9 FL (6.5-10.1); PLATELET COUNT 247 K/UL (150-450); RED BLOOD COUNT 2.85 M/UL (4.20-5.40); WHITE BLOOD COUNT 4.6 K/UL (4.8-10.8)
[2017-04-25 07:42] LABS: INR 2.3 (0.9-1.1); PROTHROMBIN TIME 24.8 SEC (9.30-11.50)
[2017-04-25 07:57] LABS: ALANINE AMINOTRANSFERASE 5 U/L (3-33); ALBUMIN/GLOBULIN RATIO 0.6 (1.0-2.7); ANION GAP 6 (5-15); ASPARTATE AMINO TRANSFERASE 13 U/L (5-40); CALCIUM 9.4 mg/dL (8.6-10.2); CARBON DIOXIDE 33 mEQ/L (20-30); CHLORIDE 102 mEQ/L (98-107); CREATININE 0.3 mg/dL (0.5-0.9); HEMOLYSIS 3; POTASSIUM 4.3 mEQ/L (3.4-4.9); SODIUM 141 mEQ/L (135-145); TOTAL PROTEIN 7.3 g/dL (6.6-8.7)
[2017-04-25 08:00] VITALS: BP 115/77
--- NOTE | 2017-04-25 08:35 | General Progress Note ---
Assessment/Plan Problem List: (1) Seizure disorder ICD Codes: G40.909 - Epilepsy, unspecified, not intractable, without status epilepticus SNOMED: 103854885 (2) ARF (acute renal failure) ICD Codes: N17.9 - Acute kidney failure, unspecified SNOMED: 41999344 Qualifiers: Qualified Codes: N17.9 - Acute kidney failure, unspecified (3) UTI (urinary tract infection) ICD Codes: N39.0 - Urinary tract infection, site not specified SNOMED: 70734805, 83269898 Qualifiers: Qualified Codes: N39.0 - Urinary tract infection, site not specified (4) Pneumonia ICD Codes: J18.9 - Pneumonia, unspecified organism SNOMED: 590152850, 36459709 Qualifiers: Qualified Codes: J18.1 - Lobar pneumonia, unspecified organism (5) Septic shock ICD Codes: A41.9 - Sepsis, unspecified organism; R65.21 - Severe sepsis with septic shock SNOMED: 19809246 (6) Hypoxia ICD Codes: R09.02 - Hypoxemia; R65.21 - Severe sepsis with septic shock SNOMED: 126829681, 02127072 (7) Altered level of consciousness ICD Codes: R40.4 - Transient alteration of awareness SNOMED: 1421857 Status: stable Assessment/Plan restart gt feeds this am monitor residuals and abd exam resp care sz rx coumadin rx monitor for bleeding skin care dc planning in progress Subjective ROS Limited/Unobtainable: Yes Constitutional: Reports: malaise, weakness HEENT: Reports: no symptoms Cardiovascular: Reports: no symptoms Respiratory: Reports: no symptoms Gastrointestinal/Abdominal: Reports: abdomen distended Genitourinary: Reports: no symptoms Neurologic/Psychiatric: Reports: pre-existing deficit, seizure Endocrine: Reports: no symptoms Hematologic/Lymphatic: Reports: no symptoms Allergies: Coded Allergies: CEFTRIAXONE (Verified Allergy, Unknown, 03/31/17) PENICILLINS (Verified Allergy, Unknown, 03/31/17) SULFA (SULFONAMIDE ANTIBIOTICS) (Verified Allergy, Unknown, 03/31/17) TAZOBACTAM (Verified Allergy, Unknown, 03/31/17) All Systems: reviewed and negative except above Subjective feeds held last night due to abd distention and high residual. kub negative. no vomiting. + bowel movements. Objective Last 24 Hour Vital Signs Date Time Temp Pulse Resp B/P Pulse Ox O2 Delivery O2 Flow Rate FiO2 04/25/17 04:00 97.6 89 20 117/63 98 Nasal Cannula 2.0 04/25/17 00:00 97.8 87 20 121/55 98 Nasal Cannula 2.0 04/24/17 20:21 Nasal Cannula 3.0 04/24/17 20:21 98 Nasal Cannula 3.0 04/24/17 19:02 97 Nasal Cannula 04/24/17 16:00 98.0 84 18 130/60 97 Room Air 04/24/17 12:00 97.7 87 18 138/71 97 Nasal Cannula 3.0 Intake and Output 04/24/17 04/25/17 19:00 07:00 Intake Total 695 ml 180 ml Balance 695 ml 180 ml Free Water 200 ml IV Total 180 ml Tube Feeding 495 ml # Voids 3 # Bowel Movements 2 Laboratory Tests 04/25/17 06:50: White Blood Count 4.6L, Red Blood Count 2.85L, Hemoglobin 9.6L, Hematocrit 31.7L , Mean Corpuscular Volume 111H, Mean Corpuscular Hemoglobin 33.8H, Mean Corpuscular Hemoglobin Concent 30.4L, Red Cell Distribution Width 17.0H, Platelet Count 247, Mean Platelet Volume 6.9, Neutrophils (%) (Auto) , Lymphocytes (%) (Auto) , Monocytes (%) (Auto) , Eosinophils (%) (Auto) , Basophils (%) (Auto) , Neutrophils % (Manual) [Pending], Lymphocytes % (Manual) [Pending], Platelet Estimate [Pending], Platelet Morphology [Pending], Prothrombin Time 24.8H, Prothromb Time International Ratio 2.3H, Sodium Level 141, Potassium Level 4.3, Chloride Level 102, Carbon Dioxide Level 33H, Anion Gap 6, Blood Urea Nitrogen 15, Creatinine 0.3L, Estimat Glomerular Filtration Rate , Glucose Level 105, Calcium Level 9.4, Total Bilirubin < 0.2, Aspartate Amino Transf (AST/SGOT) 13, Alanine Aminotransferase (ALT/SGPT) 5, Alkaline Phosphatase 50, Total Protein 7.3, Albumin 2.8L, Globulin 4.5, Albumin/Globulin Ratio 0.6L Height (Feet): 5 Height (Inches): 3.00 Weight (Pounds): 237 Objective General Appearance: WD/WN, confused Neck: supple Cardiovascular: normal rate, regular rhythm Respiratory/Chest: chest wall non-tender, no respiratory distress, no accessory muscle use, rhonchi - bilaterally Abdomen: normal bowel sounds, non tender, soft, no organomegaly. +distention Edema: no edema noted Arm (L), no edema noted Arm (R), no edema noted Leg (L), no edema noted Leg (R), no edema noted Pedal (L), no edema noted Pedal (R), no edema noted Generalized Neurologic: disoriented BREANNE SORIA Apr 25, 2017 08:35
--- NOTE | 2017-04-25 08:40 | Infectious Diseases Prog Note ---
Assessment/Plan Assessment/Plan A 1. UTI s/p Rx 2. pneumonia with pseudomonas s/p Rx 3. respiratory failure, extubated 4. multiple sclerosis 5. seizure disorder 6. asymptomatic bacteriuria P; Observe off antibiotic Discontinue PICC line at time of discharge Subjective ROS Limited/Unobtainable: Yes Allergies: Coded Allergies: CEFTRIAXONE (Verified Allergy, Unknown, 03/31/17) PENICILLINS (Verified Allergy, Unknown, 03/31/17) SULFA (SULFONAMIDE ANTIBIOTICS) (Verified Allergy, Unknown, 03/31/17) TAZOBACTAM (Verified Allergy, Unknown, 03/31/17) Objective Vital Signs Last 24 Hour Vital Signs Date Time Temp Pulse Resp B/P Pulse Ox O2 Delivery O2 Flow Rate FiO2 04/25/17 04:00 97.6 89 20 117/63 98 Nasal Cannula 2.0 04/25/17 00:00 97.8 87 20 121/55 98 Nasal Cannula 2.0 04/24/17 20:21 Nasal Cannula 3.0 04/24/17 20:21 98 Nasal Cannula 3.0 04/24/17 19:02 97 Nasal Cannula 04/24/17 16:00 98.0 84 18 130/60 97 Room Air 04/24/17 12:00 97.7 87 18 138/71 97 Nasal Cannula 3.0 Height (Feet): 5 Height (Inches): 3.00 Weight (Pounds): 237 General Appearance: no acute distress HEENT: mucous membranes moist Respiratory/Chest: lungs clear Cardiovascular: normal rate Abdomen: soft, non tender, other - GT feeding Extremities: other - R arm PICC line, generalized edema Neurologic/Psychiatric: aphasia, other - awake Microbiology Date/Time Source Procedure Growth Status 04/23/17 14:35 Urine,Clean Catch Urine Culture - Preliminary Gram Negative Tommy Resulted Laboratory Tests Test 04/25/17 06:50 White Blood Count 4.6 K/UL (4.8-10.8) L Red Blood Count 2.85 M/UL (4.20-5.40) L Hemoglobin 9.6 G/DL (12.0-16.0) L Hematocrit 31.7 % (37.0-47.0) L Mean Corpuscular Volume 111 FL (80-99) H Mean Corpuscular Hemoglobin 33.8 PG (27.0-31.0) H Mean Corpuscular Hemoglobin Concent 30.4 G/DL (32.0-36.0) L Red Cell Distribution Width 17.0 % (11.6-14.8) H Platelet Count 247 K/UL (150-450) Mean Platelet Volume 6.9 FL (6.5-10.1) Neutrophils (%) (Auto) % (45.0-75.0) Lymphocytes (%) (Auto) % (20.0-45.0) Monocytes (%) (Auto) % (1.0-10.0) Eosinophils (%) (Auto) % (0.0-3.0) Basophils (%) (Auto) % (0.0-2.0) Neutrophils % (Manual) Pending Lymphocytes % (Manual) Pending Platelet Estimate Pending Platelet Morphology Pending Prothrombin Time 24.8 SEC (9.30-11.50) H Prothromb Time International Ratio 2.3 (0.9-1.1) H Sodium Level 141 mEQ/L (135-145) Potassium Level 4.3 mEQ/L (3.4-4.9) Chloride Level 102 mEQ/L (98-107) Carbon Dioxide Level 33 mEQ/L (20-30) H Anion Gap 6 (5-15) Blood Urea Nitrogen 15 mg/dL (7-23) Creatinine 0.3 mg/dL (0.5-0.9) L Estimat Glomerular Filtration Rate mL/min (>60) Glucose Level 105 mg/dL (74-106) Calcium Level 9.4 mg/dL (8.6-10.2) Total Bilirubin < 0.2 mg/dL (0.0-1.2) Aspartate Amino Transf (AST/SGOT) 13 U/L (5-40) Alanine Aminotransferase (ALT/SGPT) 5 U/L (3-33) Alkaline Phosphatase 50 U/L (35-104) Total Protein 7.3 g/dL (6.6-8.7) Albumin 2.8 g/dL (3.5-5.2) L Globulin 4.5 g/dL Albumin/Globulin Ratio 0.6 (1.0-2.7) L Current Medications Medications (Trade) Dose Ordered Sig/Reji Route PRN Reason Start Time Stop Time Status Last Admin Dose Admin Acetaminophen (Tylenol) 650 mg Q4H PRN ORAL Mild Pain/Temp > 100.5 04/11/17 20:45 05/11/17 20:44 Ascorbic Acid (Vitamin C) 500 mg TWICE A DAY GT 04/12/17 09:00 05/12/17 08:59 04/24/17 17:55 Chlorhexidine Gluconate (Sheela-Hex 2%) 1 applic QHS TOPIC 04/13/17 21:00 05/13/17 20:59 04/24/17 20:48 Dextrose/Sodium Chloride (D5ns) 1,000 ml @ 60 mls/hr [id number] IV 04/24/17 22:00 05/24/17 21:59 04/24/17 22:00 Docusate Sodium (Colace) 100 mg TWICE A DAY NG 04/13/17 18:00 05/13/17 17:59 04/24/17 17:55 Epoetin Carlos (Procrit (for non ESRD use)) 3,000 units WED-WED-WED SUBQ 04/12/17 21:00 05/12/17 20:59 04/23/17 20:51 Lacosamide (Vimpat) 50 mg Q12HR ORAL 04/11/17 22:00 05/11/17 21:59 04/24/17 20:47 Lansoprazole (Prevacid) 30 mg DAILY GT 04/12/17 09:00 05/12/17 08:59 04/24/17 10:03 Levothyroxine Sodium (Synthroid) 75 mcg ACBREAKFAST GT 04/17/17 06:30 05/17/17 06:29 04/25/17 05:52 Magnesium Hydroxide (Mom) 30 ml HSPRN PRN GT Constipation 04/17/17 16:26 05/13/17 15:29 Valproic Acid (Depakene) 1,000 mg Q12HR GT 04/11/17 22:00 05/11/17 21:59 04/24/17 20:48 Warfarin Sodium 1 ea 1 ea DAILY PRN MISC PER RX PROTOCOL 04/23/17 12:45 05/23/17 12:44 PARDEEP IRVING Apr 25, 2017 08:40
[2017-04-25 08:45] LABS: ANISOCYTOSIS 1+; BAND NEUTROPHILS % (MANUAL) 0 % (0-8); BASOPHILS % (MANUAL) 0 % (0-2); EOSINOPHILS % (MANUAL) 0 % (0-3); HYPOCHROMASIA 1+; LYMPHOCYTES % (MANUAL) 39 % (20-45); MACROCYTES 1+; NEUTROPHILS % (MANUAL) 54 % (45-75); PLATELET ESTIMATE ADEQUATE; PLATELET MORPHOLOGY NORMAL; TOTAL CELLS COUNTED 100
--- NOTE | 2017-04-25 09:41 | Critical Care Progress Note ---
Assessment/Plan Assessment/Plan IMPRESSION: 1. Respiratory failure . 2. Hypoxemia. 3. pneumonia. 4. Hypotension. resolved 5. Quadriparesis. 6. Bedbound state. 7. deep venous thrombosis. 8. Gastrostomy tube. 9. Known aspiration. 10. UTI 11. diarrhea 12. thrombocytopenia 13. hypernatremia 14. worsening anemia 15. leukopenia- improved PLAN exam stable; reviewed systems reviewed and noted no distress or congestion at present monitor for respiratory congestion and optimize aspiration precautions dc planning aspiration precautions off antibiotics medications/laboratory data/nursing notes reviewed in detail note reviewed and edited care discussed with RN and RT Critical Care - Subjective Condition: stable EKG Rhythm: Sinus Rhythm I&O: Intake and Output 04/24/17 04/25/17 19:00 07:00 Intake Total 695 ml 180 ml Balance 695 ml 180 ml Free Water 200 ml IV Total 180 ml Tube Feeding 495 ml # Voids 3 # Bowel Movements 2 Critical Care - Objective ET-Tube: 7.5 ET Position: 20 Last 24 Hour Vital Signs Date Time Temp Pulse Resp B/P Pulse Ox O2 Delivery O2 Flow Rate FiO2 04/25/17 04:00 97.6 89 20 117/63 98 Nasal Cannula 2.0 04/25/17 00:00 97.8 87 20 121/55 98 Nasal Cannula 2.0 04/24/17 20:21 Nasal Cannula 3.0 04/24/17 20:21 98 Nasal Cannula 3.0 04/24/17 19:02 97 Nasal Cannula 04/24/17 16:00 98.0 84 18 130/60 97 Room Air 04/24/17 12:00 97.7 87 18 138/71 97 Nasal Cannula 3.0 Labs: Labs Test 04/22/17 13:50 04/23/17 04:55 04/23/17 14:35 04/24/17 06:30 Prothrombin Time 11.4 SEC (9.30-11.50) 13.4 SEC (9.30-11.50) 24.4 SEC (9.30-11.50) Prothromb Time International Ratio 1.1 (0.9-1.1) 1.3 (0.9-1.1) 2.3 (0.9-1.1) White Blood Count 4.4 K/UL (4.8-10.8) Red Blood Count 3.03 M/UL (4.20-5.40) Hemoglobin 10.3 G/DL (12.0-16.0) Hematocrit 33.9 % (37.0-47.0) Mean Corpuscular Volume 112 FL (80-99) Mean Corpuscular Hemoglobin 34.0 PG (27.0-31.0) Mean Corpuscular Hemoglobin Concent 30.4 G/DL (32.0-36.0) Red Cell Distribution Width 17.0 % (11.6-14.8) Platelet Count 234 K/UL (150-450) Mean Platelet Volume 7.3 FL (6.5-10.1) Neutrophils (%) (Auto) % (45.0-75.0) Lymphocytes (%) (Auto) % (20.0-45.0) Monocytes (%) (Auto) % (1.0-10.0) Eosinophils (%) (Auto) % (0.0-3.0) Basophils (%) (Auto) % (0.0-2.0) Differential Total Cells Counted 100 Neutrophils % (Manual) 64 % (45-75) Lymphocytes % (Manual) 25 % (20-45) Monocytes % (Manual) 7 % (1-10) Eosinophils % (Manual) 3 % (0-3) Basophils % (Manual) 0 % (0-2) Band Neutrophils 1 % (0-8) Platelet Estimate Adequate Platelet Morphology Normal Hypochromasia 1+ Anisocytosis 1+ Macrocytosis 1+ Urine Color Yellow Urine Appearance Very cloudy Urine pH 6.5 (4.5-8.0) Urine Specific [place] 1.010 (1.005-1.035) Urine Protein 2+ (NEGATIVE) Urine Glucose (UA) Negative (NEGATIVE) Urine Ketones Negative (NEGATIVE) Urine Occult Blood 4+ (NEGATIVE) Urine Nitrite Positive (NEGATIVE) Urine Bilirubin Negative (NEGATIVE) Urine Urobilinogen Normal MG/DL (0.0-1.0) Urine Leukocyte Esterase 3+ (NEGATIVE) Urine RBC Tntc /HPF (0 - 2) Urine WBC Tntc /HPF (0 - 2) Urine Squamous Epithelial Cells Moderate /LPF (NONE/OCC) Urine Bacteria Many /HPF (NONE) Urine Yeast Many /HPF (NONE) Sodium Level 142 mEQ/L (135-145) Potassium Level 4.3 mEQ/L (3.4-4.9) Chloride Level 102 mEQ/L (98-107) Carbon Dioxide Level 32 mEQ/L (20-30) Anion Gap 8 (5-15) Blood Urea Nitrogen 16 mg/dL (7-23) Creatinine 0.3 mg/dL (0.5-0.9) Estimat Glomerular Filtration Rate mL/min (>60) Glucose Level 97 mg/dL (74-106) Calcium Level 9.2 mg/dL (8.6-10.2) Magnesium Level 2.0 mg/dL (1.7-2.5) Total Bilirubin < 0.2 mg/dL (0.0-1.2) Aspartate Amino Transf (AST/SGOT) 11 U/L (5-40) Alanine Aminotransferase (ALT/SGPT) 5 U/L (3-33) Alkaline Phosphatase 47 U/L (35-104) Pro-B-Type Natriuretic Peptide 259 pg/mL (0-125) Total Protein 7.3 g/dL (6.6-8.7) Albumin 2.6 g/dL (3.5-5.2) Globulin 4.7 g/dL Albumin/Globulin Ratio 0.5 (1.0-2.7) Test 04/25/17 06:50 White Blood Count 4.6 K/UL (4.8-10.8) Red Blood Count 2.85 M/UL (4.20-5.40) Hemoglobin 9.6 G/DL (12.0-16.0) Hematocrit 31.7 % (37.0-47.0) Mean Corpuscular Volume 111 FL (80-99) Mean Corpuscular Hemoglobin 33.8 PG (27.0-31.0) Mean Corpuscular Hemoglobin Concent 30.4 G/DL (32.0-36.0) Red Cell Distribution Width 17.0 % (11.6-14.8) Platelet Count 247 K/UL (150-450) Mean Platelet Volume 6.9 FL (6.5-10.1) Neutrophils (%) (Auto) % (45.0-75.0) Lymphocytes (%) (Auto) % (20.0-45.0) Monocytes (%) (Auto) % (1.0-10.0) Eosinophils (%) (Auto) % (0.0-3.0) Basophils (%) (Auto) % (0.0-2.0) Differential Total Cells Counted 100 Neutrophils % (Manual) 54 % (45-75) Lymphocytes % (Manual) 39 % (20-45) Monocytes % (Manual) 7 % (1-10) Eosinophils % (Manual) 0 % (0-3) Basophils % (Manual) 0 % (0-2) Band Neutrophils 0 % (0-8) Platelet Estimate Adequate Platelet Morphology Normal Hypochromasia 1+ Anisocytosis 1+ Macrocytosis 1+ Prothrombin Time 24.8 SEC (9.30-11.50) Prothromb Time International Ratio 2.3 (0.9-1.1) Sodium Level 141 mEQ/L (135-145) Potassium Level 4.3 mEQ/L (3.4-4.9) Chloride Level 102 mEQ/L (98-107) Carbon Dioxide Level 33 mEQ/L (20-30) Anion Gap 6 (5-15) Blood Urea Nitrogen 15 mg/dL (7-23) Creatinine 0.3 mg/dL (0.5-0.9) Estimat Glomerular Filtration Rate mL/min (>60) Glucose Level 105 mg/dL (74-106) Calcium Level 9.4 mg/dL (8.6-10.2) Total Bilirubin < 0.2 mg/dL (0.0-1.2) Aspartate Amino Transf (AST/SGOT) 13 U/L (5-40) Alanine Aminotransferase (ALT/SGPT) 5 U/L (3-33) Alkaline Phosphatase 50 U/L (35-104) Total Protein 7.3 g/dL (6.6-8.7) Albumin 2.8 g/dL (3.5-5.2) Globulin 4.5 g/dL Albumin/Globulin Ratio 0.6 (1.0-2.7) Objective: GENERAL: The patient is a well-developed female, on oxygen, NAD HEENT: Negative. NECK: Supple. no JVD LUNGS: Moderate breath sounds. no rhonchi noted. no wheeze; symmetric; same CARDIAC: S1 and S2. Regular rate and rhythm.without MRG ABDOMEN: Soft and nontender. The patient has a G-tube in place . no HSM no distention Extremities: No cyanosis or clubbing. noted contractures. Quadriparesis. overall same skin noted reviewed and edited Micro: Microbiology Date/Time Source Procedure Growth Status 04/23/17 14:35 Urine,Clean Catch Urine Culture - Preliminary Gram Negative Tommy Resulted Accucheck: 195 SANCHEZ NAVARRETE Apr 25, 2017 09:41
[2017-04-25] MEDS: Lacosamide 50mg tablet ORAL SCH ×2 (09:49→21:50)
[2017-04-25] MEDS: Ascorbic Acid 500mg tab GT SCH ×2 (09:49→18:15)
[2017-04-25] MEDS: Docusate 100mg/10ml Liq NG SCH ×2 (09:50→18:15)
[2017-04-25] MEDS: Valproic Acid 250mg/5ml Liquid GT SCH ×2 (09:50→21:51)
[2017-04-25] MEDS ORDERED: D5NS 1000ml IV ONE (10:20)
[2017-04-25] MEDS ORDERED: Tubing IV Secondary IV ONE (10:20)
[2017-04-25 12:00] VITALS: BP 122/71
[2017-04-25 16:00] VITALS: BP 138/62
[2017-04-25] MEDS: Metoclopramide 10mg/2ml Inj IVP SCH (16:56)
[2017-04-25] MEDS ORDERED: Warfarin Sodium 5mg ORAL ONE (17:00)
[2017-04-25] MEDS: D5NS 1,000 ML IV SCH (18:14)
[2017-04-25 20:00] VITALS: BP 140/60
[2017-04-25] MEDS: Dyna-Hex 2% Top Sol 8oz TOPIC SCH (21:50)
[2017-04-26] VITALS (7 sets, daily range): BP systolic 106–170; BP diastolic 50–88
[2017-04-26] MEDS: Metoclopramide 10mg/2ml Inj IVP SCH ×4 (01:38→23:35)
[2017-04-26] MEDS ORDERED: Aztreonam Inj 1 GM in D5W 55 ML IVPB ONE (02:00)
--- NOTE | 2017-04-26 03:30 | Progress Note ---
DATE: 04/25/2017 CARDIOLOGY PROGRESS NOTE SUBJECTIVE: No chest pain. No shortness of breath. No nausea or vomiting. Tolerating feedings by G-tube. No signs of bleeding. INR is 2.3. OBJECTIVE: LUNGS: Diminished breath sounds. HEART: Regular rhythm and rate. Normal S1 and S2. ABDOMEN: Soft. G-tube intact. EXTREMITIES: Trace edema. LABORATORY DATA: Repeat urine reveals gram-negative bacillus. White count is up to 4.6 and hemoglobin 9.6. IMPRESSION: 1. Rehydrated. 2. No signs of acute congestive heart failure. 3. Deep venous thrombosis. 4. Therapeutic INR. 5. Resolving leukopenia off rivaroxaban. 6. Urinary tract infection. PLAN: 1. Discontinue intravenous fluids. 2. Add antibiotics pending final urine culture results. 3. No diuresis presently indicated. Nick Gilbert M.D. DR: DEMARCUS JOB#: [id number] CC:
--- NOTE | 2017-04-26 03:30 | Progress Note ---
DATE: 04/24/2017 CARDIOLOGY PROGRESS NOTE Late entry for 04/24/2017. SUBJECTIVE: The patient without respiratory distress, confused, responsive, and tolerating G-tube feedings. OBJECTIVE: VITAL SIGNS: Blood pressure 139/64, pulse 92, and respirations 18. NECK: Supple. LUNGS: Diminished breath sounds. CARDIAC: Regular rhythm and rate. Normal S1 and S2. ABDOMEN: Soft. G-tube site intact. EXTREMITIES: Trace dependent edema. LABORATORY DATA: INR is 2.3. Potassium 4.3. Pro-natriuretic peptide 259. Albumin 2.6. IMPRESSION: 1. Deep venous thrombosis. 2. Therapeutic INR. 3. Resolving leukopenia off Xarelto. 4. Severe protein-calorie malnutrition, on gastrostomy tube feedings. 5. Acute on chronic diastolic congestive heart failure, now clinically compensated. 6. Hypertensive heart disease with controlled blood pressure. 7. Multiple sclerosis with immobility. PLAN: 1. Maintain warfarin to INR of 2 to 3. 2. Monitor blood counts. 3. Continue current cardiovascular regimen. 4. No role for additional diuresis at this time. Nick Gilbert M.D. DR: DEMARCUS JOB#: [id number] CC:
[2017-04-26 07:39] LABS: INR 2.7 (0.9-1.1); PROTHROMBIN TIME 28.1 SEC (9.30-11.50)
--- NOTE | 2017-04-26 08:15 | Critical Care Progress Note ---
Assessment/Plan Assessment/Plan IMPRESSION: 1. Respiratory failure . 2. Hypoxemia. 3. pneumonia. 4. Hypotension. resolved 5. Quadriparesis. 6. Bedbound state. 7. deep venous thrombosis. 8. Gastrostomy tube. 9. Known aspiration. 10. UTI 11. diarrhea 12. thrombocytopenia 13. hypernatremia 14. worsening anemia 15. leukopenia- improved PLAN exam stable; reviewed systems reviewed and noted no distress or congestion at present monitor for respiratory congestion and optimize aspiration precautions dc planning per primary team aspiration precautions off antibiotics at present nontoxic medications/laboratory data/nursing notes reviewed in detail note reviewed and edited care discussed with RN and RT Critical Care - Subjective Interval Events: events noted labs reviewed overnight events reviewed ROS Limited/Unobtainable: Yes I&O: Intake and Output 04/25/17 04/26/17 19:00 07:00 Intake Total 965 ml 715 ml Balance 965 ml 715 ml Free Water 100 ml IV Total 480 ml 715 ml Tube Feeding 385 ml # Voids 6 1 # Bowel Movements 2 Critical Care - Objective ET-Tube: 7.5 ET Position: 20 Last 24 Hour Vital Signs Date Time Temp Pulse Resp B/P Pulse Ox O2 Delivery O2 Flow Rate FiO2 04/26/17 04:00 97.7 85 20 137/72 96 Nasal Cannula 2.0 04/26/17 03:47 97 Nasal Cannula 2.0 28 04/26/17 03:47 Nasal Cannula 2.0 28 04/26/17 00:00 97.7 80 20 116/50 98 Nasal Cannula 2.0 04/25/17 20:00 97.9 85 20 140/60 92 Nasal Cannula 2.0 04/25/17 16:00 97.8 86 18 138/62 100 Nasal Cannula 2.0 04/25/17 12:00 98.0 86 18 122/71 98 Nasal Cannula 2.0 Objective: GENERAL: The patient is a well-developed female, on oxygen, NAD HEENT: Negative. NECK: Supple. no JVD LUNGS: Moderate breath sounds. no rhonchi noted. no wheeze; symmetric; same CARDIAC: S1 and S2. Regular rate and rhythm.without MRG ABDOMEN: Soft and nontender. The patient has a G-tube in place . no HSM no distention Extremities: No cyanosis or clubbing. noted contractures. Quadriparesis. overall same skin noted reviewed and edited Micro: Microbiology Date/Time Source Procedure Growth Status 04/23/17 14:35 Urine,Clean Catch Urine Culture - Final Escherichia Coli - Esbl Pseudomonas Aeruginosa Complete Accucheck: 195 SANCHEZ NAVARRETE Apr 26, 2017 08:15
[2017-04-26] MEDS: Lacosamide 50mg tablet ORAL SCH ×2 (08:35→21:29)
[2017-04-26] MEDS: Docusate 100mg/10ml Liq NG SCH ×2 (08:35→17:39)
[2017-04-26] MEDS: Valproic Acid 250mg/5ml Liquid GT SCH ×2 (08:35→21:30)
[2017-04-26] MEDS: Ascorbic Acid 500mg tab GT SCH ×2 (08:35→17:39)
--- NOTE | 2017-04-26 08:39 | General Progress Note ---
Assessment/Plan Problem List: (1) Seizure disorder ICD Codes: G40.909 - Epilepsy, unspecified, not intractable, without status epilepticus SNOMED: 549546702 (2) ARF (acute renal failure) ICD Codes: N17.9 - Acute kidney failure, unspecified SNOMED: 66764775 Qualifiers: Qualified Codes: N17.9 - Acute kidney failure, unspecified (3) UTI (urinary tract infection) ICD Codes: N39.0 - Urinary tract infection, site not specified SNOMED: 60106312, 08446885 Qualifiers: Qualified Codes: N39.0 - Urinary tract infection, site not specified (4) Pneumonia ICD Codes: J18.9 - Pneumonia, unspecified organism SNOMED: 347672835, 05403927 Qualifiers: Qualified Codes: J18.1 - Lobar pneumonia, unspecified organism (5) Septic shock ICD Codes: A41.9 - Sepsis, unspecified organism; R65.21 - Severe sepsis with septic shock SNOMED: 68194405 (6) Hypoxia ICD Codes: R09.02 - Hypoxemia; R65.21 - Severe sepsis with septic shock SNOMED: 442802109, 29116034 (7) Altered level of consciousness ICD Codes: R40.4 - Transient alteration of awareness SNOMED: 7559291 Status: stable Assessment/Plan restart gt feeds this am. check cbc now monitor for bleeding monitor residuals and abd exam cont reglan ivf while off feeds resp care sz rx coumadin rx monitor for bleeding skin care dc planning in progress Subjective ROS Limited/Unobtainable: Yes Constitutional: Reports: weakness HEENT: Reports: no symptoms Cardiovascular: Reports: no symptoms Respiratory: Reports: no symptoms Gastrointestinal/Abdominal: Reports: blood in stool, difficulty swallowing Genitourinary: Reports: no symptoms Neurologic/Psychiatric: Reports: pre-existing deficit, seizure Endocrine: Reports: no symptoms Hematologic/Lymphatic: Reports: no symptoms Allergies: Coded Allergies: CEFTRIAXONE (Verified Allergy, Unknown, 03/31/17) PENICILLINS (Verified Allergy, Unknown, 03/31/17) SULFA (SULFONAMIDE ANTIBIOTICS) (Verified Allergy, Unknown, 03/31/17) TAZOBACTAM (Verified Allergy, Unknown, 03/31/17) Subjective feeds held last night due to abd distention and blod clots from gt. no melena or brbpr. had increased residual again last night. feeds currently on hold. on ivf. iv reglan added. Objective Last 24 Hour Vital Signs Date Time Temp Pulse Resp B/P Pulse Ox O2 Delivery O2 Flow Rate FiO2 04/26/17 08:00 97.3 90 20 106/50 95 Nasal Cannula 2.0 04/26/17 04:00 97.7 85 20 137/72 96 Nasal Cannula 2.0 04/26/17 03:47 97 Nasal Cannula 2.0 28 04/26/17 03:47 Nasal Cannula 2.0 28 04/26/17 00:00 97.7 80 20 116/50 98 Nasal Cannula 2.0 04/25/17 20:00 97.9 85 20 140/60 92 Nasal Cannula 2.0 04/25/17 16:00 97.8 86 18 138/62 100 Nasal Cannula 2.0 04/25/17 12:00 98.0 86 18 122/71 98 Nasal Cannula 2.0 Intake and Output 04/25/17 04/26/17 19:00 07:00 Intake Total 965 ml 715 ml Balance 965 ml 715 ml Free Water 100 ml IV Total 480 ml 715 ml Tube Feeding 385 ml # Voids 6 1 # Bowel Movements 2 Laboratory Tests 04/26/17 06:30: Prothrombin Time 28.1H, Prothromb Time International Ratio 2.7H Height (Feet): 5 Height (Inches): 3.00 Weight (Pounds): 237 Objective General Appearance: WD/WN, confused Neck: supple Cardiovascular: normal rate, regular rhythm Respiratory/Chest: chest wall non-tender, no respiratory distress, no accessory muscle use, rhonchi - bilaterally Abdomen: normal bowel sounds, non tender, soft, no organomegaly. +distention Edema: no edema noted Arm (L), no edema noted Arm (R), no edema noted Leg (L), no edema noted Leg (R), no edema noted Pedal (L), no edema noted Pedal (R), no edema noted Generalized Neurologic: disoriented BREANNE SORIA Apr 26, 2017 08:39
[2017-04-26 08:49] LABS: MEAN CORPUSCULAR HEMOGLOBIN 33.4 PG (27.0-31.0); MEAN CORPUSCULAR HGB CONC 29.8 G/DL (32.0-36.0); MEAN CORPUSCULAR VOLUME 112 FL (80-99); MEAN PLATELET VOLUME 7.3 FL (6.5-10.1); PLATELET COUNT 257 K/UL (150-450); RED BLOOD COUNT 2.99 M/UL (4.20-5.40); WHITE BLOOD COUNT 4.5 K/UL (4.8-10.8)
[2017-04-26] MEDS: D5NS 1,000 ML IV SCH (10:09)
--- NOTE | 2017-04-26 10:26 | Diagnostic Imaging Report ---
Indications: Abdominal distention Technique: AP abdomen Findings: Comparison: None There is mild gaseous and fecal distention of the colon. No significant small bowel dilation demonstrated. Percutaneous gastrostomy tube in stomach. Clustered calcifications right midabdomen. Scattered arterial mural calcifications. Bones diffusely demineralized. Bilateral hip joints are narrowed. Disc marginal osteophytes in lumbar spine. IMPRESSION: Nonobstructive bowel gas pattern, may represent mild colonic ileus Right abdominal calcifications may represent kidney stones or gallstones Arteriosclerosis Degenerative spondylosis Bilateral hip arthropathy Osteopenia This correlates with Dr. Sharp's preliminary report.
[2017-04-26 10:59] LABS: ANISOCYTOSIS 1+; BAND NEUTROPHILS % (MANUAL) 0 % (0-8); BASOPHILS % (MANUAL) 0 % (0-2); EOSINOPHILS % (MANUAL) 1 % (0-3); LYMPHOCYTES % (MANUAL) 35 % (20-45); NEUTROPHILS % (MANUAL) 58 % (45-75); PLATELET ESTIMATE ADEQUATE; PLATELET MORPHOLOGY NORMAL; TOTAL CELLS COUNTED 100
[2017-04-26 11:00] LABS: HYPOCHROMASIA 1+; MACROCYTES 1+
--- NOTE | 2017-04-26 15:27 | Infectious Diseases Prog Note ---
Assessment/Plan Assessment/Plan A 1. UTI s/p Rx, now asymptomatic bacteriuria 2. pneumonia with pseudomonas s/p Rx 3. respiratory failure, extubated 4. multiple sclerosis 5. seizure disorder 6. asymptomatic bacteriuria P; Observe off antibiotic Discontinue PICC line at time of discharge Subjective ROS Limited/Unobtainable: Yes Allergies: Coded Allergies: CEFTRIAXONE (Verified Allergy, Unknown, 03/31/17) PENICILLINS (Verified Allergy, Unknown, 03/31/17) SULFA (SULFONAMIDE ANTIBIOTICS) (Verified Allergy, Unknown, 03/31/17) TAZOBACTAM (Verified Allergy, Unknown, 03/31/17) Objective Vital Signs Last 24 Hour Vital Signs Date Time Temp Pulse Resp B/P Pulse Ox O2 Delivery O2 Flow Rate FiO2 04/26/17 12:00 96.8 74 20 125/80 92 Nasal Cannula 2.0 04/26/17 08:00 97.3 90 20 106/50 95 Nasal Cannula 2.0 04/26/17 07:19 Nasal Cannula 2.0 28 04/26/17 07:18 98 Nasal Cannula 2.0 28 04/26/17 04:00 97.7 85 20 137/72 96 Nasal Cannula 2.0 04/26/17 03:47 97 Nasal Cannula 2.0 28 04/26/17 03:47 Nasal Cannula 2.0 28 04/26/17 00:00 97.7 80 20 116/50 98 Nasal Cannula 2.0 04/25/17 20:00 97.9 85 20 140/60 92 Nasal Cannula 2.0 04/25/17 16:00 97.8 86 18 138/62 100 Nasal Cannula 2.0 Height (Feet): 5 Height (Inches): 3.00 Weight (Pounds): 237 General Appearance: no acute distress Respiratory/Chest: lungs clear Cardiovascular: normal rate Abdomen: soft, non tender, other - GT feeding Extremities: other - edema, R arm PICC line Laboratory Tests Test 04/26/17 06:30 White Blood Count 4.5 K/UL (4.8-10.8) L Red Blood Count 2.99 M/UL (4.20-5.40) L Hemoglobin 10.0 G/DL (12.0-16.0) L Hematocrit 33.5 % (37.0-47.0) L Mean Corpuscular Volume 112 FL (80-99) H Mean Corpuscular Hemoglobin 33.4 PG (27.0-31.0) H Mean Corpuscular Hemoglobin Concent 29.8 G/DL (32.0-36.0) L Red Cell Distribution Width 17.0 % (11.6-14.8) H Platelet Count 257 K/UL (150-450) Mean Platelet Volume 7.3 FL (6.5-10.1) Neutrophils (%) (Auto) % (45.0-75.0) Lymphocytes (%) (Auto) % (20.0-45.0) Monocytes (%) (Auto) % (1.0-10.0) Eosinophils (%) (Auto) % (0.0-3.0) Basophils (%) (Auto) % (0.0-2.0) Differential Total Cells Counted 100 Neutrophils % (Manual) 58 % (45-75) Lymphocytes % (Manual) 35 % (20-45) Monocytes % (Manual) 6 % (1-10) Eosinophils % (Manual) 1 % (0-3) Basophils % (Manual) 0 % (0-2) Band Neutrophils 0 % (0-8) Platelet Estimate Adequate Platelet Morphology Normal Hypochromasia 1+ Anisocytosis 1+ Macrocytosis 1+ Prothrombin Time 28.1 SEC (9.30-11.50) H Prothromb Time International Ratio 2.7 (0.9-1.1) H Current Medications Medications (Trade) Dose Ordered Sig/Reji Route PRN Reason Start Time Stop Time Status Last Admin Dose Admin Acetaminophen (Tylenol) 650 mg Q4H PRN ORAL Mild Pain/Temp > 100.5 04/11/17 20:45 05/11/17 20:44 Ascorbic Acid (Vitamin C) 500 mg TWICE A DAY GT 04/12/17 09:00 05/12/17 08:59 04/26/17 08:35 Chlorhexidine Gluconate (Sheela-Hex 2%) 1 applic QHS TOPIC 04/13/17 21:00 05/13/17 20:59 04/25/17 21:50 Dextrose/Sodium Chloride (D5ns) 1,000 ml @ 60 mls/hr [id number] IV 04/25/17 17:00 05/25/17 16:59 04/26/17 10:09 Docusate Sodium (Colace) 100 mg TWICE A DAY NG 04/13/17 18:00 05/13/17 17:59 04/26/17 08:35 Epoetin Carlos (Procrit (for non ESRD use)) 3,000 units WED-WED-WED SUBQ 04/12/17 21:00 05/12/17 20:59 04/23/17 20:51 Lacosamide (Vimpat) 50 mg Q12HR ORAL 04/11/17 22:00 05/11/17 21:59 04/26/17 08:35 Lansoprazole (Prevacid) 30 mg DAILY GT 04/12/17 09:00 05/12/17 08:59 04/26/17 08:35 Levothyroxine Sodium (Synthroid) 75 mcg ACBREAKFAST GT 04/17/17 06:30 05/17/17 06:29 04/26/17 06:09 Magnesium Hydroxide (Mom) 30 ml HSPRN PRN GT Constipation 04/17/17 16:26 05/13/17 15:29 Metoclopramide HCl 10 mg 10 mg Q8H IVP 04/25/17 16:30 05/25/17 16:29 04/26/17 08:37 Valproic Acid (Depakene) 1,000 mg Q12HR GT 04/11/17 22:00 05/11/17 21:59 04/26/17 08:35 Warfarin Sodium (Coumadin per pharmacy) 1 ea DAILY PRN MISC PER RX PROTOCOL 04/23/17 12:45 05/23/17 12:44 PARDEEP IRVING Apr 26, 2017 15:27
[2017-04-26] MEDS ORDERED: Acetaminophen 650mg/20.3ml GT PRN (17:20)
[2017-04-26] MEDS ORDERED: Warfarin Sodium 4mg PO ONE (18:30)
--- NOTE | 2017-04-26 18:51 | Consultation ---
History of Present Illness General Chief Complaint: Altered Level of Consciousness Present Illness HPI 72-year-old female, who is a [place] [facility] resident, admitted on 03/31/2017 because of altered mental status. She was found to have hypoxemia, hypotension , and had respiratory failure. The pt is confused and disoriented. the pt was agitated over the weekend/ Allergies: Coded Allergies: CEFTRIAXONE (Verified Allergy, Unknown, 03/31/17) PENICILLINS (Verified Allergy, Unknown, 03/31/17) SULFA (SULFONAMIDE ANTIBIOTICS) (Verified Allergy, Unknown, 03/31/17) TAZOBACTAM (Verified Allergy, Unknown, 03/31/17) Medication History Scheduled Famotidine (Famotidine), 20 MG GT DAILY, (Reported) Fluticasone Propionate (Flonase Allergy Relief), 9.9 ML NS DAILY, (Reported) Furosemide* (Lasix*), 20 MG GT DAILY, (Reported) Hydralazine Hcl* (Hydralazine Hcl*), 10 MG GT EVERY 6 HOURS, (Reported) Lacosamide (Vimpat), 50 MG GT BID, (Reported) Levothyroxine Sodium* (Levothyroxine Sodium*), 50 MCG GT DAILY, (Reported) Metoclopramide Hcl* (Metoclopramide Hcl*), 10 MG GT EVERY 6 HOURS, (Reported) Scheduled PRN Acetaminophen* (Acetaminophen*), 650 MG GT Q4HR PRN for Mild Pain/Temp > 100.5, (Reported) Albuterol Sulfate* (Albuterol Sulfate Hhn*), 3 ML INH Q6H PRN for Shortness of Breath, (Reported) Ondansetron* (Zofran*), 4 MG GT Q6H PRN for Nausea & Vomiting, (Reported) Miscellaneous Medications Loperamide HCl (Loperamide), 2 MG GT, (Reported) Valproic Acid (Valproic Acid), 1,000 MG GT, (Reported) Patient History Limited by: medical condition History Provided By: Patient, Medical Record, PMD Healthcare decision maker Resuscitation status Full Code Advanced Directive on File No Past Medical/Surgical History Past Medical/Surgical History: (1) ARF (acute renal failure) (2) UTI (urinary tract infection) (3) Pneumonia (4) Septic shock (5) Seizure disorder (6) Hypoxia (7) Altered level of consciousness (8) Wide-complex tachycardia (9) Paroxysmal atrial fibrillation with rapid ventricular response Review of Systems Constitutional: Reports: malaise, weakness Psychiatric: Reports: anxiety, depressed feelings, emotional problems Physical Exam General Appearance: confused Neurologic: disoriented, depressed affect Last 24 Hour Vital Signs Date Time Temp Pulse Resp B/P Pulse Ox O2 Delivery O2 Flow Rate FiO2 04/26/17 16:00 97.5 79 20 135/86 96 Nasal Cannula 2.0 04/26/17 12:00 96.8 74 20 125/80 92 Nasal Cannula 2.0 04/26/17 08:00 97.3 90 20 106/50 95 Nasal Cannula 2.0 04/26/17 07:19 Nasal Cannula 2.0 28 04/26/17 07:18 98 Nasal Cannula 2.0 28 04/26/17 04:00 97.7 85 20 137/72 96 Nasal Cannula 2.0 04/26/17 03:47 97 Nasal Cannula 2.0 28 04/26/17 03:47 Nasal Cannula 2.0 28 04/26/17 00:00 97.7 80 20 116/50 98 Nasal Cannula 2.0 04/25/17 20:00 97.9 85 20 140/60 92 Nasal Cannula 2.0 Intake and Output 04/25/17 04/26/17 19:00 07:00 Intake Total 965 ml 715 ml Balance 965 ml 715 ml Free Water 100 ml IV Total 480 ml 715 ml Tube Feeding 385 ml # Voids 6 1 # Bowel Movements 2 Laboratory Tests Test 04/26/17 06:30 White Blood Count 4.5 K/UL (4.8-10.8) L Red Blood Count 2.99 M/UL (4.20-5.40) L Hemoglobin 10.0 G/DL (12.0-16.0) L Hematocrit 33.5 % (37.0-47.0) L Mean Corpuscular Volume 112 FL (80-99) H Mean Corpuscular Hemoglobin 33.4 PG (27.0-31.0) H Mean Corpuscular Hemoglobin Concent 29.8 G/DL (32.0-36.0) L Red Cell Distribution Width 17.0 % (11.6-14.8) H Platelet Count 257 K/UL (150-450) Mean Platelet Volume 7.3 FL (6.5-10.1) Neutrophils (%) (Auto) % (45.0-75.0) Lymphocytes (%) (Auto) % (20.0-45.0) Monocytes (%) (Auto) % (1.0-10.0) Eosinophils (%) (Auto) % (0.0-3.0) Basophils (%) (Auto) % (0.0-2.0) Differential Total Cells Counted 100 Neutrophils % (Manual) 58 % (45-75) Lymphocytes % (Manual) 35 % (20-45) Monocytes % (Manual) 6 % (1-10) Eosinophils % (Manual) 1 % (0-3) Basophils % (Manual) 0 % (0-2) Band Neutrophils 0 % (0-8) Platelet Estimate Adequate Platelet Morphology Normal Hypochromasia 1+ Anisocytosis 1+ Macrocytosis 1+ Prothrombin Time 28.1 SEC (9.30-11.50) H Prothromb Time International Ratio 2.7 (0.9-1.1) H Height (Feet): 5 Height (Inches): 3.00 Weight (Pounds): 237 Medications Current Medications Medications (Trade) Dose Ordered Sig/Reji Route PRN Reason Start Time Stop Time Status Last Admin Dose Admin Acetaminophen (Tylenol) 650 mg Q4H PRN GT Mild Pain/Temp > 100.5 04/26/17 17:20 05/11/17 20:44 Ascorbic Acid (Vitamin C) 500 mg TWICE A DAY GT 04/12/17 09:00 05/12/17 08:59 04/26/17 17:39 Chlorhexidine Gluconate (Sheela-Hex 2%) 1 applic QHS TOPIC 04/13/17 21:00 05/13/17 20:59 04/25/17 21:50 Dextrose/Sodium Chloride (D5ns) 1,000 ml @ 60 mls/hr [id number] IV 04/25/17 17:00 05/25/17 16:59 04/26/17 10:09 Docusate Sodium (Colace) 100 mg TWICE A DAY NG 04/13/17 18:00 05/13/17 17:59 04/26/17 17:39 Epoetin Carlos (Procrit (for non ESRD use)) 3,000 units MON-WED-WED SUBQ 04/12/17 21:00 05/12/17 20:59 04/23/17 20:51 Lacosamide (Vimpat) 50 mg Q12HR ORAL 04/11/17 22:00 05/11/17 21:59 04/26/17 08:35 Lansoprazole (Prevacid) 30 mg DAILY GT 04/12/17 09:00 05/12/17 08:59 04/26/17 08:35 Levothyroxine Sodium (Synthroid) 75 mcg ACBREAKFAST GT 04/17/17 06:30 05/17/17 06:29 04/26/17 06:09 Magnesium Hydroxide (Mom) 30 ml HSPRN PRN GT Constipation 04/17/17 16:26 05/13/17 15:29 Metoclopramide HCl 10 mg 10 mg Q8H IVP 04/25/17 16:30 05/25/17 16:29 04/26/17 16:30 Valproic Acid (Depakene) 1,000 mg Q12HR GT 04/11/17 22:00 05/11/17 21:59 04/26/17 08:35 Warfarin Sodium (Coumadin per pharmacy) 1 ea DAILY PRN MISC PER RX PROTOCOL 04/23/17 12:45 05/23/17 12:44 Assessment/Plan Status: stable Assessment/Plan Delirium due to [facility] olanzapine 2.5mg qhs Louise Vazquez M.D. Apr 26, 2017 18:51
[2017-04-26] MEDS: Dyna-Hex 2% Top Sol 8oz TOPIC SCH (21:29)
[2017-04-26] MEDS: OLANZapine 2.5mg tab ORAL SCH (21:29)
[2017-04-26] MEDS: Epogen (for non ESRD use) SUBQ SCH (21:30)
[2017-04-27] VITALS: BP 122/52
[2017-04-27 04:00] VITALS: BP 121/53
[2017-04-27 08:00] VITALS: BP 136/70
--- NOTE | 2017-04-27 08:05 | Critical Care Progress Note ---
Assessment/Plan Assessment/Plan IMPRESSION: 1. Respiratory failure . 2. Hypoxemia. 3. pneumonia. 4. Hypotension. resolved 5. Quadriparesis. 6. Bedbound state. 7. deep venous thrombosis. 8. Gastrostomy tube. 9. Known aspiration. 10. UTI 11. diarrhea 12. thrombocytopenia 13. hypernatremia 14. worsening anemia 15. leukopenia- improved PLAN exam stable; reviewed and stable systems reviewed and noted no distress or congestion at present monitor for respiratory congestion and optimize aspiration precautions as is dc planning per primary team off antibiotics at present nontoxic medications/laboratory data/nursing notes reviewed in detail note reviewed and edited care discussed with RN and RT Critical Care - Subjective Interval Events: care noted and reviewed NAD no distress Condition: stable EKG Rhythm: Sinus Rhythm Residuals: minimal Tube Feeding Tolerated: yes I&O: Intake and Output 04/26/17 04/27/17 19:00 07:00 Intake Total 1265 ml 1150 ml Balance 1265 ml 1150 ml Free Water 300 ml 600 ml IV Total 600 ml Tube Feeding 365 ml 550 ml # Voids 6 2 # Bowel Movements 4 1 Critical Care - Objective ET-Tube: 7.5 ET Position: 20 Last 24 Hour Vital Signs Date Time Temp Pulse Resp B/P Pulse Ox O2 Delivery O2 Flow Rate FiO2 04/27/17 04:00 98.1 88 20 121/53 96 Nasal Cannula 2.0 04/27/17 00:00 97.9 89 18 122/52 92 Nasal Cannula 1.0 04/26/17 20:55 145/88 04/26/17 20:00 97.9 98 20 170/77 97 Nasal Cannula 2.0 04/26/17 19:40 Nasal Cannula 2.0 28 04/26/17 19:40 98 Nasal Cannula 2.0 28 04/26/17 16:00 97.5 79 20 135/86 96 Nasal Cannula 2.0 04/26/17 12:00 96.8 74 20 125/80 92 Nasal Cannula 2.0 Labs: Labs Test 04/25/17 06:50 04/26/17 06:30 White Blood Count 4.6 K/UL (4.8-10.8) 4.5 K/UL (4.8-10.8) Red Blood Count 2.85 M/UL (4.20-5.40) 2.99 M/UL (4.20-5.40) Hemoglobin 9.6 G/DL (12.0-16.0) 10.0 G/DL (12.0-16.0) Hematocrit 31.7 % (37.0-47.0) 33.5 % (37.0-47.0) Mean Corpuscular Volume 111 FL (80-99) 112 FL (80-99) Mean Corpuscular Hemoglobin 33.8 PG (27.0-31.0) 33.4 PG (27.0-31.0) Mean Corpuscular Hemoglobin Concent 30.4 G/DL (32.0-36.0) 29.8 G/DL (32.0-36.0) Red Cell Distribution Width 17.0 % (11.6-14.8) 17.0 % (11.6-14.8) Platelet Count 247 K/UL (150-450) 257 K/UL (150-450) Mean Platelet Volume 6.9 FL (6.5-10.1) 7.3 FL (6.5-10.1) Neutrophils (%) (Auto) % (45.0-75.0) % (45.0-75.0) Lymphocytes (%) (Auto) % (20.0-45.0) % (20.0-45.0) Monocytes (%) (Auto) % (1.0-10.0) % (1.0-10.0) Eosinophils (%) (Auto) % (0.0-3.0) % (0.0-3.0) Basophils (%) (Auto) % (0.0-2.0) % (0.0-2.0) Differential Total Cells Counted 100 100 Neutrophils % (Manual) 54 % (45-75) 58 % (45-75) Lymphocytes % (Manual) 39 % (20-45) 35 % (20-45) Monocytes % (Manual) 7 % (1-10) 6 % (1-10) Eosinophils % (Manual) 0 % (0-3) 1 % (0-3) Basophils % (Manual) 0 % (0-2) 0 % (0-2) Band Neutrophils 0 % (0-8) 0 % (0-8) Platelet Estimate Adequate Adequate Platelet Morphology Normal Normal Hypochromasia 1+ 1+ Anisocytosis 1+ 1+ Macrocytosis 1+ 1+ Prothrombin Time 24.8 SEC (9.30-11.50) 28.1 SEC (9.30-11.50) Prothromb Time International Ratio 2.3 (0.9-1.1) 2.7 (0.9-1.1) Sodium Level 141 mEQ/L (135-145) Potassium Level 4.3 mEQ/L (3.4-4.9) Chloride Level 102 mEQ/L (98-107) Carbon Dioxide Level 33 mEQ/L (20-30) Anion Gap 6 (5-15) Blood Urea Nitrogen 15 mg/dL (7-23) Creatinine 0.3 mg/dL (0.5-0.9) Estimat Glomerular Filtration Rate mL/min (>60) Glucose Level 105 mg/dL (74-106) Calcium Level 9.4 mg/dL (8.6-10.2) Total Bilirubin < 0.2 mg/dL (0.0-1.2) Aspartate Amino Transf (AST/SGOT) 13 U/L (5-40) Alanine Aminotransferase (ALT/SGPT) 5 U/L (3-33) Alkaline Phosphatase 50 U/L (35-104) Total Protein 7.3 g/dL (6.6-8.7) Albumin 2.8 g/dL (3.5-5.2) Globulin 4.5 g/dL Albumin/Globulin Ratio 0.6 (1.0-2.7) Objective: GENERAL: The patient is a well-developed female, on oxygen, NAD HEENT: Negative. NECK: Supple. no JVD LUNGS: Moderate breath sounds. no rhonchi noted. no wheeze; symmetric; same CARDIAC: S1 and S2. Regular rate and rhythm.without MRG ABDOMEN: Soft and nontender. The patient has a G-tube in place . no HSM no distention Extremities: No cyanosis or clubbing. noted contractures. Quadriparesis. overall same skin noted reviewed and edited Accucheck: SANCHEZ RIOS Apr 27, 2017 08:04
--- NOTE | 2017-04-27 08:24 | General Progress Note ---
Assessment/Plan Problem List: (1) Seizure disorder ICD Codes: G40.909 - Epilepsy, unspecified, not intractable, without status epilepticus SNOMED: 995972669 (2) ARF (acute renal failure) ICD Codes: N17.9 - Acute kidney failure, unspecified SNOMED: 50078348 Qualifiers: Qualified Codes: N17.9 - Acute kidney failure, unspecified (3) UTI (urinary tract infection) ICD Codes: N39.0 - Urinary tract infection, site not specified SNOMED: 03299337, 83480401 Qualifiers: Qualified Codes: N39.0 - Urinary tract infection, site not specified (4) Pneumonia ICD Codes: J18.9 - Pneumonia, unspecified organism SNOMED: 781503536, 89635294 Qualifiers: Qualified Codes: J18.1 - Lobar pneumonia, unspecified organism (5) Septic shock ICD Codes: A41.9 - Sepsis, unspecified organism; R65.21 - Severe sepsis with septic shock SNOMED: 09066495 (6) Hypoxia ICD Codes: R09.02 - Hypoxemia; R65.21 - Severe sepsis with septic shock SNOMED: 321798796, 95354555 (7) Altered level of consciousness ICD Codes: R40.4 - Transient alteration of awareness SNOMED: 1049898 Status: stable Assessment/Plan gt feed monitor for bleeding monitor residuals and abd exam cont reglan resp care sz rx coumadin rx with caution monitor for bleeding skin care dc planning in progress Subjective ROS Limited/Unobtainable: No Constitutional: Reports: malaise, weakness HEENT: Reports: no symptoms Cardiovascular: Reports: no symptoms Respiratory: Reports: no symptoms Gastrointestinal/Abdominal: Reports: difficulty swallowing Genitourinary: Reports: no symptoms Neurologic/Psychiatric: Reports: pre-existing deficit, seizure Endocrine: Reports: no symptoms Hematologic/Lymphatic: Reports: anemia Allergies: Coded Allergies: CEFTRIAXONE (Verified Allergy, Unknown, 03/31/17) PENICILLINS (Verified Allergy, Unknown, 03/31/17) SULFA (SULFONAMIDE ANTIBIOTICS) (Verified Allergy, Unknown, 03/31/17) TAZOBACTAM (Verified Allergy, Unknown, 03/31/17) All Systems: reviewed and negative except above Subjective tolerating feeds at 50cc. residual 60. had small blod clot in gt residual. no melena. no brbpr. no placement currently Objective Last 24 Hour Vital Signs Date Time Temp Pulse Resp B/P Pulse Ox O2 Delivery O2 Flow Rate FiO2 04/27/17 04:00 98.1 88 20 121/53 96 Nasal Cannula 2.0 04/27/17 00:00 97.9 89 18 122/52 92 Nasal Cannula 1.0 04/26/17 20:55 145/88 04/26/17 20:00 97.9 98 20 170/77 97 Nasal Cannula 2.0 04/26/17 19:40 Nasal Cannula 2.0 28 04/26/17 19:40 98 Nasal Cannula 2.0 28 04/26/17 16:00 97.5 79 20 135/86 96 Nasal Cannula 2.0 04/26/17 12:00 96.8 74 20 125/80 92 Nasal Cannula 2.0 Intake and Output 04/26/17 04/27/17 19:00 07:00 Intake Total 1265 ml 1150 ml Balance 1265 ml 1150 ml Free Water 300 ml 600 ml IV Total 600 ml Tube Feeding 365 ml 550 ml # Voids 6 2 # Bowel Movements 4 1 Height (Feet): 5 Height (Inches): 3.00 Weight (Pounds): 237 Objective General Appearance: WD/WN, confused Neck: supple Cardiovascular: normal rate, regular rhythm Respiratory/Chest: chest wall non-tender, no respiratory distress, no accessory muscle use, rhonchi - bilaterally Abdomen: normal bowel sounds, non tender, soft, no organomegaly. +distention Edema: no edema noted Arm (L), no edema noted Arm (R), no edema noted Leg (L), no edema noted Leg (R), no edema noted Pedal (L), no edema noted Pedal (R), no edema noted Generalized Neurologic: disoriented BREANNE SORIA Apr 27, 2017 08:24
[2017-04-27 09:40] LABS: INR 3.4 (0.9-1.1); PROTHROMBIN TIME 35.8 SEC (9.30-11.50)
[2017-04-27] MEDS: Ascorbic Acid 500mg tab GT SCH ×2 (10:24→17:27)
[2017-04-27] MEDS: Lacosamide 50mg tablet ORAL SCH ×2 (10:24→21:21)
[2017-04-27] MEDS: Metoclopramide 10mg/2ml Inj IVP SCH ×2 (10:24→17:27)
[2017-04-27] MEDS: Valproic Acid 250mg/5ml Liquid GT SCH ×2 (10:25→21:21)
[2017-04-27] MEDS: Docusate 100mg/10ml Liq NG SCH ×2 (10:25→17:27)
[2017-04-27] MEDS ORDERED: Tubing IV Secondary IV ONE (10:34)
[2017-04-27] MEDS ORDERED: D5NS 1000ml IV ONE (10:34)
--- NOTE | 2017-04-27 11:52 | Infectious Diseases Prog Note ---
"Assessment/Plan Assessment/Plan antibiotics : none A 1. pseudomonas | e.coli UTI 2. pseudomonas pneumonia s/p rx 3. respiratory failure 4. multiple sclerosis 5. seizure disorder P 1. start iv gentamicin 2. will follow up cultures Subjective ROS Limited/Unobtainable: Yes Allergies: Coded Allergies: CEFTRIAXONE (Verified Allergy, Unknown, 03/31/17) PENICILLINS (Verified Allergy, Unknown, 03/31/17) SULFA (SULFONAMIDE ANTIBIOTICS) (Verified Allergy, Unknown, 03/31/17) TAZOBACTAM (Verified Allergy, Unknown, 03/31/17) Objective Vital Signs Last 24 Hour Vital Signs Date Time Temp Pulse Resp B/P Pulse Ox O2 Delivery O2 Flow Rate FiO2 04/27/17 08:00 97.1 91 18 136/70 97 Nasal Cannula 2.0 04/27/17 04:00 98.1 88 20 121/53 96 Nasal Cannula 2.0 04/27/17 00:00 97.9 89 18 122/52 92 Nasal Cannula 1.0 04/26/17 20:55 145/88 04/26/17 20:00 97.9 98 20 170/77 97 Nasal Cannula 2.0 04/26/17 19:40 Nasal Cannula 2.0 28 04/26/17 19:40 98 Nasal Cannula 2.0 28 04/26/17 16:00 97.5 79 20 135/86 96 Nasal Cannula 2.0 04/26/17 12:00 96.8 74 20 125/80 92 Nasal Cannula 2.0 Height (Feet): 5 Height (Inches): 3.00 Weight (Pounds): 237 Respiratory/Chest: lungs clear Cardiovascular: normal rate, regular rhythm, no gallop/murmur Abdomen: soft, non tender, other - GT Extremities: other - + edema, right arm PICC Laboratory Tests Test 04/27/17 09:10 Prothrombin Time 35.8 SEC (9.30-11.50) H Prothromb Time International Ratio 3.4 (0.9-1.1) H KAMRAN GUTIERREZ Apr 27, 2017 11:52"
[2017-04-27 12:04] VITALS: BP 130/73
[2017-04-27] MEDS: Gentamicin inj 360 MG in NS 110 ML IVPB SCH (14:37)
[2017-04-27 16:28] VITALS: BP 103/53
[2017-04-27 20:00] VITALS: BP 144/79
[2017-04-27] MEDS: Dyna-Hex 2% Top Sol 8oz TOPIC SCH (21:20)
[2017-04-27] MEDS: OLANZapine 2.5mg tab ORAL SCH (21:21)
--- NOTE | 2017-04-27 22:15 | Geriatric Progress Note ---
Assessment/Plan Assessment/Plan stable dc zyprexa Subjective Constitutional: Reports: malaise Mood/Memory: Reports: anxiety, depressed feelings, prior hx Psychiatric: Reports: hallucinations Sleep: Reports: sleeps well Geriatric Geriatric Last 24 Hour Vital Signs Date Time Temp Pulse Resp B/P Pulse Ox O2 Delivery O2 Flow Rate FiO2 04/27/17 20:00 97.7 92 16 144/79 97 Nasal Cannula 04/27/17 19:30 Nasal Cannula 2.0 28 04/27/17 19:30 94 Nasal Cannula 2.0 28 04/27/17 16:28 97.2 89 18 103/53 95 Nasal Cannula 04/27/17 12:04 97.7 85 17 130/73 93 Nasal Cannula 04/27/17 08:00 97.1 91 18 136/70 97 Nasal Cannula 2.0 04/27/17 04:00 98.1 88 20 121/53 96 Nasal Cannula 2.0 04/27/17 00:00 97.9 89 18 122/52 92 Nasal Cannula 1.0 Intake and Output 04/26/17 04/27/17 19:00 07:00 Intake Total 1265 ml 1150 ml Balance 1265 ml 1150 ml Free Water 300 ml 600 ml IV Total 600 ml Tube Feeding 365 ml 550 ml # Voids 6 2 # Bowel Movements 4 1 Laboratory Tests Test 04/27/17 09:10 Prothrombin Time 35.8 SEC (9.30-11.50) H Prothromb Time International Ratio 3.4 (0.9-1.1) H Current Medications Medications (Trade) Dose Ordered Sig/Reji Route PRN Reason Start Time Stop Time Status Last Admin Dose Admin Acetaminophen (Tylenol) 650 mg Q4H PRN GT Mild Pain/Temp > 100.5 04/26/17 17:20 05/11/17 20:44 Ascorbic Acid (Vitamin C) 500 mg TWICE A DAY GT 04/12/17 09:00 05/12/17 08:59 04/27/17 17:27 Chlorhexidine Gluconate (Sheela-Hex 2%) 1 applic QHS TOPIC 04/13/17 21:00 05/13/17 20:59 04/27/17 21:20 Docusate Sodium (Colace) 100 mg TWICE A DAY NG 04/13/17 18:00 05/13/17 17:59 04/27/17 10:25 Epoetin Carlos (Procrit (for non ESRD use)) 3,000 units MON-WED-WED SUBQ 04/12/17 21:00 05/12/17 20:59 04/26/17 21:30 Gentamicin Sulfate/Sodium Chloride (Gentamicin inj/ Sodium Chloride) 119 ml @ 220 mls/hr Q24H IVPB 04/27/17 14:00 04/29/17 14:33 04/27/17 14:37 Lacosamide (Vimpat) 50 mg Q12HR ORAL 04/11/17 22:00 05/11/17 21:59 04/27/17 21:21 Lansoprazole (Prevacid) 30 mg DAILY GT 04/12/17 09:00 05/12/17 08:59 04/27/17 10:24 Levothyroxine Sodium (Synthroid) 75 mcg ACBREAKFAST GT 04/17/17 06:30 05/17/17 06:29 04/27/17 05:42 Magnesium Hydroxide (Mom) 30 ml HSPRN PRN GT Constipation 04/17/17 16:26 05/13/17 15:29 Metoclopramide HCl (Reglan) 10 mg Q8H IVP 04/25/17 16:30 05/25/17 16:29 04/27/17 17:27 Olanzapine 2.5 mg 2.5 mg BEDTIME ORAL 04/26/17 21:00 05/26/17 20:59 04/27/17 21:21 Valproic Acid (Depakene) 1,000 mg Q12HR GT 04/11/17 22:00 05/11/17 21:59 04/27/17 21:21 Warfarin Sodium (Coumadin per pharmacy) 1 ea DAILY PRN MISC PER RX PROTOCOL 04/23/17 12:45 05/23/17 12:44 Height (Feet): 5 Height (Inches): 3.00 Weight (Pounds): 237 General Appearance: mild distress, poor eye contact Psychiatric Behavior: uncooperative Orientation: disoriented Insight: Louise Santa M.D. Apr 27, 2017 22:15
--- NOTE | 2017-04-27 23:00 | Progress Note ---
DATE: 04/27/2017 CARDIOLOGY PROGRESS NOTE SUBJECTIVE: The patient is tolerating feedings. Residuals are being checked. The patient is on anticoagulation therapy with warfarin. The patient's is white count is correcting off with Xarelto. OBJECTIVE: VITAL SIGNS: Blood pressure 103/53, pulse 89, respiratory rate 18, and afebrile. NECK: Supple. LUNGS: Clear. CARDIAC: Regular rhythm and rate. Normal S1 and S2. ABDOMEN: Slightly distended, but soft. EXTREMITIES: With trace dependent edema. IMPRESSION: 1. Microbial urinary tract infection, resolved. 2. Sepsis with shock. 3. Status post respiratory failure. 4. Acute myocardial ischemia, resolved. 5. Acute on chronic diastolic congestive heart failure compensated paroxysmal atrial ectopy, suppressed. 6. Hypertensive heart disease, now with controlled blood pressure. 7. Acute deep vein thrombosis with elevated INR, now on warfarin. PLAN: Hold warfarin re-dose. Recheck laboratory studies. Respiratory hygiene. No diuretics needed presently. We will follow and adjust cardiovascular regimen based on clinical parameter. Nick Gilbert M.D. DR: SRIDEVI JOB#: [id number] CC:
--- NOTE | 2017-04-27 23:15 | Progress Note ---
DATE: 04/26/2017 CARDIOLOGY PROGRESS NOTE SUBJECTIVE: The patient had feedings held because of the increase G-tube residuals, they are being resumed this morning. The patient is on promotility agents. The patient remains on IV fluids. Feedings have been held. OBJECTIVE: VITAL SIGNS: Blood pressure 137/72, pulse 85, respiratory 20 and afebrile. NECK: Supple. LUNGS: Clear. CARDIAC: Regular rhythm and rate. Normal S1 and S2 with a fourth heart sound. ABDOMEN: Soft and slightly distended. G-tube intact. EXTREMITIES: With trace dependent edema. LABORATORY AND DIAGNOSTIC DATA: Urine culture from the seventh is polymicrobial, E. coli and Pseudomonas. White count 4.5 and hemoglobin 10. INR is 2.7. Potassium 4.3, BUN 15 and creatinine 0.3. IMPRESSION: 1. Subtherapeutic INR. 2. Deep vein thrombosis, resolved. 3. Leukopenia, off Xarelto. 4. Hypertensive heart disease with controlled blood pressure. 5. Gastroparesis, improved. 6. Acute on chronic diastolic congestive heart failure, now compensated with normalizing beta-natriuretic peptide. PLAN: Advance feedings. Discontinue IV fluids if tolerated. Recheck chemistry panel. INR goal 2-3. We will follow. Nick Gilbert M.D. DR: SRIDEVI JOB#: [id number] CC:
[2017-04-28] VITALS: BP 139/62
[2017-04-28] MEDS: Metoclopramide 10mg/2ml Inj IVP SCH ×3 (00:38→16:39)
[2017-04-28 02:24] LABS: BASOPHILS % (AUTO) 0.6 % (0.0-2.0); EOSINOPHILS % (AUTO) 2.3 % (0.0-3.0); LYMPHOCYTES % (AUTO) 33.3 % (20.0-45.0); MEAN CORPUSCULAR HEMOGLOBIN 33.5 PG (27.0-31.0); MEAN CORPUSCULAR HGB CONC 30.4 G/DL (32.0-36.0); MEAN CORPUSCULAR VOLUME 110 FL (80-99); MEAN PLATELET VOLUME 6.7 FL (6.5-10.1); MONOCYTES % (AUTO) 6.8 % (1.0-10.0); PLATELET COUNT 270 K/UL (150-450); RED BLOOD COUNT 2.82 M/UL (4.20-5.40); RED CELL DISTRIBUTION WIDTH 17.2 % (11.6-14.8); WHITE BLOOD COUNT 4.4 K/UL (4.8-10.8)
[2017-04-28 02:31] LABS: INR 2.7 (0.9-1.1); PROTHROMBIN TIME 28.6 SEC (9.30-11.50)
[2017-04-28 02:39] LABS: ALANINE AMINOTRANSFERASE 5 U/L (3-33); ALBUMIN/GLOBULIN RATIO 0.5 (1.0-2.7); ANION GAP 9 (5-15); ASPARTATE AMINO TRANSFERASE 18 U/L (5-40); CARBON DIOXIDE 31 mEQ/L (20-30); CHLORIDE 107 mEQ/L (98-107); CREATININE 0.2 mg/dL (0.5-0.9); HEMOLYSIS 2; MAGNESIUM 1.6 mg/dL (1.7-2.5); POTASSIUM 3.8 mEQ/L (3.4-4.9); SODIUM 147 mEQ/L (135-145); TOTAL PROTEIN 6.5 g/dL (6.6-8.7)
[2017-04-28 04:00] VITALS: BP_SYST 139; BP_DIAS 64; BP_DIAS 69
[2017-04-28 08:00] VITALS: BP 152/57
--- NOTE | 2017-04-28 09:12 | Critical Care Progress Note ---
Assessment/Plan Assessment/Plan IMPRESSION: 1. Respiratory failure . 2. Hypoxemia. 3. pneumonia. 4. Hypotension. resolved 5. Quadriparesis. 6. Bedbound state. 7. deep venous thrombosis. 8. Gastrostomy tube. 9. Known aspiration. 10. UTI 11. diarrhea 12. thrombocytopenia 13. hypernatremia 14. worsening anemia 15. leukopenia- improved PLAN exam stable; reviewed and stable systems reviewed and noted no distress or congestion at present monitor for respiratory changes aspiration precautions as is dc planning per primary team off antibiotics at present nontoxic medications/laboratory data/nursing notes reviewed in detail note reviewed and edited care discussed with RN and RT Critical Care - Subjective ROS Limited/Unobtainable: Yes Condition: stable EKG Rhythm: Sinus Rhythm Residuals: minimal Tube Feeding Tolerated: yes I&O: Intake and Output 04/27/17 04/28/17 19:00 07:00 Intake Total 85 ml 610 ml Balance 85 ml 610 ml Free Water 30 ml 60 ml Tube Feeding 55 ml 550 ml # Voids 2 2 # Bowel Movements 1 Critical Care - Objective ET-Tube: 7.5 ET Position: 20 Last 24 Hour Vital Signs Date Time Temp Pulse Resp B/P Pulse Ox O2 Delivery O2 Flow Rate FiO2 04/28/17 04:00 97.6 74 17 139/64 98 Nasal Cannula 04/28/17 04:00 97.6 74 18 139/69 98 Nasal Cannula 2.0 04/28/17 00:00 97.2 80 19 139/62 98 Nasal Cannula 04/27/17 20:00 97.7 92 16 144/79 97 Nasal Cannula 04/27/17 19:30 Nasal Cannula 2.0 28 04/27/17 19:30 94 Nasal Cannula 2.0 28 04/27/17 16:28 97.2 89 18 103/53 95 Nasal Cannula 04/27/17 12:04 97.7 85 17 130/73 93 Nasal Cannula Objective: GENERAL: The patient is a well-developed female, on oxygen, NAD HEENT: Negative. NECK: Supple. no JVD LUNGS: Moderate breath sounds. no rhonchi noted. no wheeze; symmetric; same CARDIAC: S1 and S2. Regular rate and rhythm.without MRG ABDOMEN: Soft and nontender. The patient has a G-tube in place . no HSM no distention Extremities: No cyanosis or clubbing. noted contractures. Quadriparesis. overall same skin noted reviewed and edited Accucheck: 195 SANCHEZ NAVARRETE Apr 28, 2017 09:12
[2017-04-28] MEDS: Valproic Acid 250mg/5ml Liquid GT SCH ×2 (09:49→21:47)
[2017-04-28] MEDS: Docusate 100mg/10ml Liq NG SCH ×2 (09:50→17:35)
[2017-04-28] MEDS: Lacosamide 50mg tablet ORAL SCH ×2 (09:50→21:47)
[2017-04-28] MEDS: Ascorbic Acid 500mg tab GT SCH ×2 (09:50→17:49)
--- NOTE | 2017-04-28 10:55 | Infectious Diseases Prog Note ---
"Assessment/Plan Assessment/Plan antibiotics : gentamicin A 1. pseudomonas | e.coli UTI 2. pseudomonas pneumonia s/p rx 3. respiratory failure 4. multiple sclerosis 5. seizure disorder P 1. continue iv gentamicin 2. will follow up cultures Subjective ROS Limited/Unobtainable: Yes Allergies: Coded Allergies: CEFTRIAXONE (Verified Allergy, Unknown, 03/31/17) PENICILLINS (Verified Allergy, Unknown, 03/31/17) SULFA (SULFONAMIDE ANTIBIOTICS) (Verified Allergy, Unknown, 03/31/17) TAZOBACTAM (Verified Allergy, Unknown, 03/31/17) Objective Vital Signs Last 24 Hour Vital Signs Date Time Temp Pulse Resp B/P Pulse Ox O2 Delivery O2 Flow Rate FiO2 04/28/17 08:00 97.2 91 18 152/57 97 Nasal Cannula 3.0 04/28/17 04:00 97.6 74 17 139/64 98 Nasal Cannula 04/28/17 04:00 97.6 74 18 139/69 98 Nasal Cannula 2.0 04/28/17 00:00 97.2 80 19 139/62 98 Nasal Cannula 04/27/17 20:00 97.7 92 16 144/79 97 Nasal Cannula 04/27/17 19:30 Nasal Cannula 2.0 28 04/27/17 19:30 94 Nasal Cannula 2.0 28 04/27/17 16:28 97.2 89 18 103/53 95 Nasal Cannula 04/27/17 12:04 97.7 85 17 130/73 93 Nasal Cannula Height (Feet): 5 Height (Inches): 3.00 Weight (Pounds): 237 Respiratory/Chest: lungs clear Cardiovascular: normal rate, regular rhythm, no gallop/murmur Abdomen: soft, non tender, other - GT Extremities: other - + edema bilaterally, right arm PICC Laboratory Tests Test 04/28/17 02:00 White Blood Count 4.4 K/UL (4.8-10.8) L Red Blood Count 2.82 M/UL (4.20-5.40) L Hemoglobin 9.5 G/DL (12.0-16.0) L Hematocrit 31.1 % (37.0-47.0) L Mean Corpuscular Volume 110 FL (80-99) H Mean Corpuscular Hemoglobin 33.5 PG (27.0-31.0) H Mean Corpuscular Hemoglobin Concent 30.4 G/DL (32.0-36.0) L Red Cell Distribution Width 17.2 % (11.6-14.8) H Platelet Count 270 K/UL (150-450) Mean Platelet Volume 6.7 FL (6.5-10.1) Neutrophils (%) (Auto) 57.0 % (45.0-75.0) Lymphocytes (%) (Auto) 33.3 % (20.0-45.0) Monocytes (%) (Auto) 6.8 % (1.0-10.0) Eosinophils (%) (Auto) 2.3 % (0.0-3.0) Basophils (%) (Auto) 0.6 % (0.0-2.0) Prothrombin Time 28.6 SEC (9.30-11.50) H Prothromb Time International Ratio 2.7 (0.9-1.1) H Sodium Level 147 mEQ/L (135-145) H Potassium Level 3.8 mEQ/L (3.4-4.9) Chloride Level 107 mEQ/L (98-107) Carbon Dioxide Level 31 mEQ/L (20-30) H Anion Gap 9 (5-15) Blood Urea Nitrogen 11 mg/dL (7-23) Creatinine 0.2 mg/dL (0.5-0.9) L Estimat Glomerular Filtration Rate mL/min (>60) Glucose Level 100 mg/dL (74-106) Calcium Level 9.0 mg/dL (8.6-10.2) Magnesium Level 1.6 mg/dL (1.7-2.5) L Total Bilirubin < 0.2 mg/dL (0.0-1.2) Aspartate Amino Transf (AST/SGOT) 18 U/L (5-40) Alanine Aminotransferase (ALT/SGPT) 5 U/L (3-33) Alkaline Phosphatase 46 U/L (35-104) Pro-B-Type Natriuretic Peptide 576 pg/mL (0-125) H Total Protein 6.5 g/dL (6.6-8.7) L Albumin 2.2 g/dL (3.5-5.2) L Globulin 4.3 g/dL Albumin/Globulin Ratio 0.5 (1.0-2.7) L Random Gentamicin Level 2.8 ug/mL KAMRAN GUTIERREZ Apr 28, 2017 10:55"
[2017-04-28 12:00] VITALS: BP 148/64
[2017-04-28] MEDS: Gentamicin inj 360 MG in NS 110 ML IVPB SCH (14:58)
[2017-04-28 16:00] VITALS: BP 144/68
[2017-04-28] MEDS ORDERED: Warfarin Sodium 2.5mg ORAL ONE (17:00)
--- NOTE | 2017-04-28 18:07 | Geriatric Progress Note ---
Assessment/Plan Assessment/Plan stable dc zyprexa Subjective Mood/Memory: Reports: emotional problems Geriatric Geriatric Last 24 Hour Vital Signs Date Time Temp Pulse Resp B/P Pulse Ox O2 Delivery O2 Flow Rate FiO2 04/28/17 16:00 97.7 86 18 144/68 97 Nasal Cannula 3.0 04/28/17 12:00 97.8 90 18 148/64 98 Nasal Cannula 3.0 04/28/17 08:00 97.2 91 18 152/57 97 Nasal Cannula 3.0 04/28/17 04:00 97.6 74 17 139/64 98 Nasal Cannula 04/28/17 04:00 97.6 74 18 139/69 98 Nasal Cannula 2.0 04/28/17 00:00 97.2 80 19 139/62 98 Nasal Cannula 04/27/17 20:00 97.7 92 16 144/79 97 Nasal Cannula 04/27/17 19:30 Nasal Cannula 2.0 28 04/27/17 19:30 94 Nasal Cannula 2.0 28 Intake and Output 04/27/17 04/28/17 19:00 07:00 Intake Total 85 ml 610 ml Balance 85 ml 610 ml Free Water 30 ml 60 ml Tube Feeding 55 ml 550 ml # Voids 2 2 # Bowel Movements 1 Laboratory Tests Test 04/28/17 02:00 White Blood Count 4.4 K/UL (4.8-10.8) L Red Blood Count 2.82 M/UL (4.20-5.40) L Hemoglobin 9.5 G/DL (12.0-16.0) L Hematocrit 31.1 % (37.0-47.0) L Mean Corpuscular Volume 110 FL (80-99) H Mean Corpuscular Hemoglobin 33.5 PG (27.0-31.0) H Mean Corpuscular Hemoglobin Concent 30.4 G/DL (32.0-36.0) L Red Cell Distribution Width 17.2 % (11.6-14.8) H Platelet Count 270 K/UL (150-450) Mean Platelet Volume 6.7 FL (6.5-10.1) Neutrophils (%) (Auto) 57.0 % (45.0-75.0) Lymphocytes (%) (Auto) 33.3 % (20.0-45.0) Monocytes (%) (Auto) 6.8 % (1.0-10.0) Eosinophils (%) (Auto) 2.3 % (0.0-3.0) Basophils (%) (Auto) 0.6 % (0.0-2.0) Prothrombin Time 28.6 SEC (9.30-11.50) H Prothromb Time International Ratio 2.7 (0.9-1.1) H Sodium Level 147 mEQ/L (135-145) H Potassium Level 3.8 mEQ/L (3.4-4.9) Chloride Level 107 mEQ/L (98-107) Carbon Dioxide Level 31 mEQ/L (20-30) H Anion Gap 9 (5-15) Blood Urea Nitrogen 11 mg/dL (7-23) Creatinine 0.2 mg/dL (0.5-0.9) L Estimat Glomerular Filtration Rate mL/min (>60) Glucose Level 100 mg/dL (74-106) Calcium Level 9.0 mg/dL (8.6-10.2) Magnesium Level 1.6 mg/dL (1.7-2.5) L Total Bilirubin < 0.2 mg/dL (0.0-1.2) Aspartate Amino Transf (AST/SGOT) 18 U/L (5-40) Alanine Aminotransferase (ALT/SGPT) 5 U/L (3-33) Alkaline Phosphatase 46 U/L (35-104) Pro-B-Type Natriuretic Peptide 576 pg/mL (0-125) H Total Protein 6.5 g/dL (6.6-8.7) L Albumin 2.2 g/dL (3.5-5.2) L Globulin 4.3 g/dL Albumin/Globulin Ratio 0.5 (1.0-2.7) L Random Gentamicin Level 2.8 ug/mL Current Medications Medications (Trade) Dose Ordered Sig/Reji Route PRN Reason Start Time Stop Time Status Last Admin Dose Admin Acetaminophen 650 mg 650 mg Q4H PRN GT Mild Pain/Temp > 100.5 04/26/17 17:20 05/11/17 20:44 Ascorbic Acid (Vitamin C) 500 mg TWICE A DAY GT 04/12/17 09:00 05/12/17 08:59 04/28/17 17:49 Chlorhexidine Gluconate (Sheela-Hex 2%) 1 applic QHS TOPIC 04/13/17 21:00 7/27/17 20:59 04/27/17 21:20 Docusate Sodium (Colace) 100 mg TWICE A DAY NG 04/13/17 18:00 05/13/17 17:59 04/28/17 09:50 Epoetin Carlos (Procrit (for non ESRD use)) 3,000 units WED-WED-WED SUBQ 04/12/17 21:00 05/12/17 20:59 04/26/17 21:30 Gentamicin Sulfate/Sodium Chloride (Gentamicin inj/ Sodium Chloride) 119 ml @ 220 mls/hr Q24H IVPB 04/27/17 14:00 04/29/17 14:33 04/28/17 14:58 Lacosamide (Vimpat) 50 mg Q12HR ORAL 04/11/17 22:00 05/11/17 21:59 04/28/17 09:50 Lansoprazole (Prevacid) 30 mg DAILY GT 04/12/17 09:00 05/12/17 08:59 04/28/17 09:50 Levothyroxine Sodium (Synthroid) 75 mcg ACBREAKFAST GT 04/17/17 06:30 05/17/17 06:29 04/28/17 06:02 Magnesium Hydroxide (Mom) 30 ml HSPRN PRN GT Constipation 04/17/17 16:26 05/13/17 15:29 Metoclopramide HCl (Reglan) 10 mg Q8H IVP 04/25/17 16:30 05/25/17 16:29 04/28/17 16:39 Valproic Acid (Depakene) 1,000 mg Q12HR GT 04/11/17 22:00 05/11/17 21:59 04/28/17 09:49 Warfarin Sodium (Coumadin per pharmacy) 1 ea DAILY PRN MISC PER RX PROTOCOL 04/23/17 12:45 05/23/17 12:44 Height (Feet): 5 Height (Inches): 3.00 Weight (Pounds): 237 General Appearance: no apparent distress, poor eye contact Neurologic: responsive Psychiatric Language/Speech: slow Orientation: disoriented Insight: poor Louise Vazquez M.D. Apr 28, 2017 18:07
[2017-04-28 20:00] VITALS: BP 143/74
[2017-04-28] MEDS: Dyna-Hex 2% Top Sol 8oz TOPIC SCH (21:47)
[2017-04-28] MEDS: Epogen (for non ESRD use) SUBQ SCH (21:56)
[2017-04-29] VITALS: BP 144/75
[2017-04-29] MEDS: Metoclopramide 10mg/2ml Inj IVP SCH ×3 (01:46→18:38)
[2017-04-29 04:00] VITALS: BP 113/66
[2017-04-29 06:41] LABS: INR 1.9 (0.9-1.1); PROTHROMBIN TIME 20.4 SEC (9.30-11.50)
--- NOTE | 2017-04-29 08:07 | Critical Care Progress Note ---
Assessment/Plan Assessment/Plan IMPRESSION: 1. Respiratory failure . 2. Hypoxemia. 3. pneumonia. 4. Hypotension. resolved 5. Quadriparesis. 6. Bedbound state. 7. deep venous thrombosis. 8. Gastrostomy tube. 9. Known aspiration. 10. UTI 11. diarrhea 12. thrombocytopenia 13. hypernatremia 14. worsening anemia 15. leukopenia- improved PLAN exam stable; reviewed and stable systems reviewed and noted no distress or congestion at present monitor for respiratory changes aspiration precautions as is dc planning off antibiotics at present nontoxic monitor for change medications/laboratory data/nursing notes reviewed in detail note reviewed and edited care discussed with RN and RT Critical Care - Subjective Interval Events: no distress care reviewed EKG Rhythm: Sinus Rhythm I&O: Intake and Output 04/28/17 04/29/17 19:00 07:00 Intake Total 880 ml 895 ml Balance 880 ml 895 ml Free Water 400 ml IV Total 220 ml Tube Feeding 660 ml 495 ml # Voids 6 1 # Bowel Movements 1 Critical Care - Objective ET-Tube: 7.5 ET Position: 20 Last 24 Hour Vital Signs Date Time Temp Pulse Resp B/P Pulse Ox O2 Delivery O2 Flow Rate FiO2 04/29/17 04:00 97.9 86 17 113/66 96 Nasal Cannula 04/29/17 00:00 97.5 94 18 144/75 94 Nasal Cannula 04/28/17 20:00 97.0 84 16 143/74 94 Nasal Cannula 04/28/17 16:00 97.7 86 18 144/68 97 Nasal Cannula 3.0 04/28/17 12:00 97.8 90 18 148/64 98 Nasal Cannula 3.0 Labs: Labs Test 04/27/17 09:10 04/28/17 02:00 04/29/17 04:30 Prothrombin Time 35.8 SEC (9.30-11.50) 28.6 SEC (9.30-11.50) 20.4 SEC (9.30-11.50) Prothromb Time International Ratio 3.4 (0.9-1.1) 2.7 (0.9-1.1) 1.9 (0.9-1.1) White Blood Count 4.4 K/UL (4.8-10.8) Red Blood Count 2.82 M/UL (4.20-5.40) Hemoglobin 9.5 G/DL (12.0-16.0) Hematocrit 31.1 % (37.0-47.0) Mean Corpuscular Volume 110 FL (80-99) Mean Corpuscular Hemoglobin 33.5 PG (27.0-31.0) Mean Corpuscular Hemoglobin Concent 30.4 G/DL (32.0-36.0) Red Cell Distribution Width 17.2 % (11.6-14.8) Platelet Count 270 K/UL (150-450) Mean Platelet Volume 6.7 FL (6.5-10.1) Neutrophils (%) (Auto) 57.0 % (45.0-75.0) Lymphocytes (%) (Auto) 33.3 % (20.0-45.0) Monocytes (%) (Auto) 6.8 % (1.0-10.0) Eosinophils (%) (Auto) 2.3 % (0.0-3.0) Basophils (%) (Auto) 0.6 % (0.0-2.0) Sodium Level 147 mEQ/L (135-145) Potassium Level 3.8 mEQ/L (3.4-4.9) Chloride Level 107 mEQ/L (98-107) Carbon Dioxide Level 31 mEQ/L (20-30) Anion Gap 9 (5-15) Blood Urea Nitrogen 11 mg/dL (7-23) Creatinine 0.2 mg/dL (0.5-0.9) Estimat Glomerular Filtration Rate mL/min (>60) Glucose Level 100 mg/dL (74-106) Calcium Level 9.0 mg/dL (8.6-10.2) Magnesium Level 1.6 mg/dL (1.7-2.5) Total Bilirubin < 0.2 mg/dL (0.0-1.2) Aspartate Amino Transf (AST/SGOT) 18 U/L (5-40) Alanine Aminotransferase (ALT/SGPT) 5 U/L (3-33) Alkaline Phosphatase 46 U/L (35-104) Pro-B-Type Natriuretic Peptide 576 pg/mL (0-125) Total Protein 6.5 g/dL (6.6-8.7) Albumin 2.2 g/dL (3.5-5.2) Globulin 4.3 g/dL Albumin/Globulin Ratio 0.5 (1.0-2.7) Random Gentamicin Level 2.8 ug/mL Objective: GENERAL: The patient is a well-developed female, on oxygen, NAD HEENT: Negative. NECK: Supple. no JVD LUNGS: Moderate breath sounds. no rhonchi noted. no wheeze; symmetric; same CARDIAC: S1 and S2. Regular rate and rhythm.without MRG ABDOMEN: Soft and nontender. The patient has a G-tube in place . no HSM no distention Extremities: No cyanosis or clubbing. noted contractures. Quadriparesis. overall same skin noted reviewed and edited Accucheck: 195 SANCHEZ NAVARRETE Apr 29, 2017 08:07
[2017-04-29 08:33] VITALS: BP 141/66
[2017-04-29] MEDS: Lacosamide 50mg tablet ORAL SCH (08:34)
[2017-04-29] MEDS: Valproic Acid 250mg/5ml Liquid GT SCH (08:34)
[2017-04-29] MEDS: Ascorbic Acid 500mg tab GT SCH ×2 (08:35→18:36)
[2017-04-29] MEDS: Docusate 100mg/10ml Liq NG SCH ×2 (08:37→18:36)
[2017-04-29 12:38] VITALS: BP 130/73
--- NOTE | 2017-04-29 13:35 | Infectious Diseases Prog Note ---
Assessment/Plan Assessment/Plan A 1. UTI with E. coli & Pseudomonas 2. pneumonia with pseudomonas s/p Rx 3. respiratory failure, extubated 4. multiple sclerosis 5. seizure disorder P; Continue Gentamicin Discontinue PICC line at time of discharge Subjective ROS Limited/Unobtainable: Yes Allergies: Coded Allergies: CEFTRIAXONE (Verified Allergy, Unknown, 03/31/17) PENICILLINS (Verified Allergy, Unknown, 03/31/17) SULFA (SULFONAMIDE ANTIBIOTICS) (Verified Allergy, Unknown, 03/31/17) TAZOBACTAM (Verified Allergy, Unknown, 03/31/17) Objective Vital Signs Last 24 Hour Vital Signs Date Time Temp Pulse Resp B/P Pulse Ox O2 Delivery O2 Flow Rate FiO2 04/29/17 12:38 98.4 105 18 130/73 91 Nasal Cannula 04/29/17 08:33 97.5 100 19 141/66 96 Nasal Cannula 04/29/17 04:00 97.9 86 17 113/66 96 Nasal Cannula 04/29/17 00:00 97.5 94 18 144/75 94 Nasal Cannula 04/28/17 20:00 97.0 84 16 143/74 94 Nasal Cannula 04/28/17 16:00 97.7 86 18 144/68 97 Nasal Cannula 3.0 Height (Feet): 5 Height (Inches): 3.00 Weight (Pounds): 237 General Appearance: no acute distress HEENT: mucous membranes moist Respiratory/Chest: lungs clear, other - O2 by cannula Cardiovascular: normal rate Abdomen: soft, non tender, other - GT feeding Extremities: other - edema, R arm PICC line Neurologic/Psychiatric: aphasia Laboratory Tests Test 04/29/17 04:30 Prothrombin Time 20.4 SEC (9.30-11.50) H Prothromb Time International Ratio 1.9 (0.9-1.1) H Current Medications Medications (Trade) Dose Ordered Sig/Reji Route PRN Reason Start Time Stop Time Status Last Admin Dose Admin Acetaminophen 650 mg 650 mg Q4H PRN GT Mild Pain/Temp > 100.5 04/26/17 17:20 05/11/17 20:44 Ascorbic Acid (Vitamin C) 500 mg TWICE A DAY GT 04/12/17 09:00 05/12/17 08:59 04/29/17 08:35 Chlorhexidine Gluconate (Sheela-Hex 2%) 1 applic QHS TOPIC 04/13/17 21:00 05/13/17 20:59 04/28/17 21:47 Docusate Sodium (Colace) 100 mg TWICE A DAY NG 04/13/17 18:00 05/13/17 17:59 04/28/17 09:50 Epoetin Carlos (Procrit (for non ESRD use)) 3,000 units MON-WED-WED SUBQ 04/12/17 21:00 05/12/17 20:59 04/28/17 21:56 Gentamicin Sulfate/Sodium Chloride (Gentamicin inj/ Sodium Chloride) 119 ml @ 220 mls/hr Q24H IVPB 04/27/17 14:00 04/29/17 14:33 04/28/17 14:58 Lacosamide (Vimpat) 50 mg Q12HR ORAL 04/11/17 22:00 05/11/17 21:59 04/29/17 08:34 Lansoprazole (Prevacid) 30 mg DAILY GT 04/12/17 09:00 05/12/17 08:59 04/29/17 08:34 Levothyroxine Sodium (Synthroid) 75 mcg ACBREAKFAST GT 04/17/17 06:30 05/17/17 06:29 04/29/17 06:43 Magnesium Hydroxide (Mom) 30 ml HSPRN PRN GT Constipation 04/17/17 16:26 05/13/17 15:29 Metoclopramide HCl (Reglan) 10 mg Q8H IVP 04/25/17 16:30 05/25/17 16:29 04/29/17 08:34 Valproic Acid (Depakene) 1,000 mg Q12HR GT 04/11/17 22:00 05/11/17 21:59 04/29/17 08:34 Warfarin Sodium (Coumadin per pharmacy) 1 ea DAILY PRN MISC PER RX PROTOCOL 04/23/17 12:45 05/23/17 12:44 Warfarin Sodium (Coumadin) 5 mg COUMADIN ONCE ORAL 04/29/17 17:00 04/29/17 17:01 PARDEEP IRVING Apr 29, 2017 13:35
[2017-04-29] MEDS: Gentamicin inj 360 MG in NS 110 ML IVPB SCH (14:14)
--- NOTE | 2017-04-29 14:30 | General Progress Note ---
Assessment/Plan Problem List: (1) Seizure disorder ICD Codes: G40.909 - Epilepsy, unspecified, not intractable, without status epilepticus SNOMED: 811535155 (2) ARF (acute renal failure) ICD Codes: N17.9 - Acute kidney failure, unspecified SNOMED: 26036499 Qualifiers: Qualified Codes: N17.9 - Acute kidney failure, unspecified (3) UTI (urinary tract infection) ICD Codes: N39.0 - Urinary tract infection, site not specified SNOMED: 30288007, 30334213 Qualifiers: Qualified Codes: N39.0 - Urinary tract infection, site not specified (4) Pneumonia ICD Codes: J18.9 - Pneumonia, unspecified organism SNOMED: 382287116, 56897632 Qualifiers: Qualified Codes: J18.1 - Lobar pneumonia, unspecified organism (5) Septic shock ICD Codes: A41.9 - Sepsis, unspecified organism; R65.21 - Severe sepsis with septic shock SNOMED: 88201323 (6) Hypoxia ICD Codes: R09.02 - Hypoxemia; R65.21 - Severe sepsis with septic shock SNOMED: 197584784, 42931683 (7) Altered level of consciousness ICD Codes: R40.4 - Transient alteration of awareness SNOMED: 1729162 Status: stable, progressing Assessment/Plan gt feed monitor for bleeding monitor residuals and abd exam cont reglan resp care check cxr sz rx coumadin rx with caution monitor for bleeding skin care dc planning in progress Subjective ROS Limited/Unobtainable: Yes Constitutional: Reports: malaise, weakness HEENT: Reports: no symptoms Cardiovascular: Reports: no symptoms Respiratory: Reports: cough, shortness of breath, sputum Gastrointestinal/Abdominal: Reports: difficulty swallowing Genitourinary: Reports: no symptoms Neurologic/Psychiatric: Reports: no symptoms Endocrine: Reports: no symptoms Hematologic/Lymphatic: Reports: anemia Allergies: Coded Allergies: CEFTRIAXONE (Verified Allergy, Unknown, 03/31/17) PENICILLINS (Verified Allergy, Unknown, 03/31/17) SULFA (SULFONAMIDE ANTIBIOTICS) (Verified Allergy, Unknown, 03/31/17) TAZOBACTAM (Verified Allergy, Unknown, 03/31/17) All Systems: reviewed and negative except above Subjective more congested. copious secretions. on gt feeds. tolerating feeds. no leaking Objective Last 24 Hour Vital Signs Date Time Temp Pulse Resp B/P Pulse Ox O2 Delivery O2 Flow Rate FiO2 04/29/17 12:38 98.4 105 18 130/73 91 Nasal Cannula 04/29/17 08:33 97.5 100 19 141/66 96 Nasal Cannula 04/29/17 04:00 97.9 86 17 113/66 96 Nasal Cannula 04/29/17 00:00 97.5 94 18 144/75 94 Nasal Cannula 04/28/17 20:00 97.0 84 16 143/74 94 Nasal Cannula 04/28/17 16:00 97.7 86 18 144/68 97 Nasal Cannula 3.0 Intake and Output 04/28/17 04/29/17 19:00 07:00 Intake Total 880 ml 895 ml Balance 880 ml 895 ml Free Water 400 ml IV Total 220 ml Tube Feeding 660 ml 495 ml # Voids 6 1 # Bowel Movements 1 Laboratory Tests 04/29/17 04:30: Prothrombin Time 20.4H, Prothromb Time International Ratio 1.9H Height (Feet): 5 Height (Inches): 3.00 Weight (Pounds): 237 Objective General Appearance: WD/WN, confused Neck: supple Cardiovascular: normal rate, regular rhythm Respiratory/Chest: chest wall non-tender, no respiratory distress, no accessory muscle use, rhonchi - bilaterally Abdomen: normal bowel sounds, non tender, soft, no organomegaly. +distention Edema: no edema noted Arm (L), no edema noted Arm (R), no edema noted Leg (L), no edema noted Leg (R), no edema noted Pedal (L), no edema noted Pedal (R), no edema noted Generalized Neurologic: disoriented BREANNE SORIA Apr 29, 2017 14:30
[2017-04-29 16:00] VITALS: BP 141/77
[2017-04-29] MEDS ORDERED: REGLAN10 MG GT (16:02)
[2017-04-29] MEDS ORDERED: LANSOPRAZOLE30 MG GT (16:02)
[2017-04-29] MEDS ORDERED: LEVOTHYROXINE75 MCG GT (16:02)
[2017-04-29] MEDS ORDERED: COLACE100 MG NG (16:02)
[2017-04-29] MEDS ORDERED: VALPROIC A500 MG/10 GT (16:02)
[2017-04-29] MEDS ORDERED: COUMADIN5 MG ORAL (16:02)
[2017-04-29] MEDS ORDERED: MOM30 ML GT (16:02)
[2017-04-29] MEDS ORDERED: GENTAMICIN IVPB (16:02)
[2017-04-29] MEDS ORDERED: PROCRIT3000 UNIT/ SUBQ (16:02)
[2017-04-29] MEDS ORDERED: VIMPAT50 MG PO (16:02)
[2017-04-29] MEDS ORDERED: ASCORBIC ACID500 MG GT (16:05)
[2017-04-29] MEDS ORDERED: Warfarin Sodium 5mg ORAL ONE (17:00)
[2017-04-29] MEDS ORDERED: Tubing IV Secondary IV ONE (18:18)
[2017-04-29] MEDS ORDERED: NS 275ml ONE (18:18)
[2017-04-29 20:00] VITALS: BP 111/52
--- NOTE | 2017-04-29 23:12 | Geriatric Progress Note ---
Assessment/Plan Assessment/Plan stable dc zyprexa Subjective Constitutional: Reports: malaise, weakness Mood/Memory: Reports: anxiety, depressed feelings, emotional problems, prior hx Geriatric Geriatric Last 24 Hour Vital Signs Date Time Temp Pulse Resp B/P Pulse Ox O2 Delivery O2 Flow Rate FiO2 04/29/17 20:00 97.5 84 20 111/52 91 Nasal Cannula 2.0 04/29/17 18:33 Nasal Cannula 2.0 29 04/29/17 18:32 98 Nasal Cannula 2.0 29 04/29/17 16:00 98.1 96 18 141/77 98 Nasal Cannula 04/29/17 12:38 98.4 105 18 130/73 91 Nasal Cannula 04/29/17 08:33 97.5 100 19 141/66 96 Nasal Cannula 04/29/17 04:00 97.9 86 17 113/66 96 Nasal Cannula 04/29/17 00:00 97.5 94 18 144/75 94 Nasal Cannula Intake and Output 04/28/17 04/29/17 19:00 07:00 Intake Total 880 ml 895 ml Balance 880 ml 895 ml Free Water 400 ml IV Total 220 ml Tube Feeding 660 ml 495 ml # Voids 6 1 # Bowel Movements 1 Laboratory Tests Test 04/29/17 04:30 Prothrombin Time 20.4 SEC (9.30-11.50) H Prothromb Time International Ratio 1.9 (0.9-1.1) H Height (Feet): 5 Height (Inches): 3.00 Weight (Pounds): 237 General Appearance: no apparent distress, alert Psychiatric: depressed affect Psychiatric Orientation: disoriented Insight: Louise Santa M.D. Apr 29, 2017 23:12
--- NOTE | 2017-04-30 04:28 | Progress Note ---
DATE: 04/28/2017 CARDIOLOGY PROGRESS NOTE Late entry for 04/28/2017 SUBJECTIVE: The patient seen and examined. Case discussed with Dr. Recio. The patient is in no respiratory distress. She is on IV antibiotics for urinary tract infection with Pseudomonas. OBJECTIVE: VITAL SIGNS: Blood pressure 139/64, pulse 74, and respirations 17. She is afebrile. LUNGS: Clear. CARDIAC: Regular. Normal S1 and S2. ABDOMEN: Soft. G-tube intact. EXTREMITIES: With trace edema. LABORATORY DATA: INR 2.7. Potassium is 3.8. Sodium 147. BUN 11 and creatinine 0.2. White count 4.4 and hemoglobin 9.5. IMPRESSION: 1. Leukopenia, recovering. 2. Anemia, improved. 3. Urinary tract infection with Pseudomonas. 4. Acute deep venous thrombosis, on anticoagulation. 5. Hypertensive heart disease. 6. Chronic diastolic congestive heart failure. 7. Status post respiratory failure. 8. Status post sepsis with shock. 9. Rivaroxaban-associated . PLAN: 1. Warfarin to INR goal of 2 to 3. 2. Antibiotics per Infectious Disease sales development consultant. 3. Respiratory hygiene. 4. Titrate antihypertensive. 5. Free water replacement. 6. No additional diuresis. 7. Nutrition by feeding tube. Nick Gilbert M.D. DR: DEMARCUS JOB#: [id number] CC:
--- NOTE | 2017-04-30 06:15 | Progress Note ---
DATE: 04/29/2017 CARDIOLOGY PROGRESS NOTE DISCHARGE PLAN: I have spoken with the [facility]. I have reviewed in detail with , the patient's medication record and her medications to be continued for discharge. The regimen was updated, but the goal was for therapeutic INR of 2 to 3. Close monitoring of blood counts, INR, and metabolic parameters will follow. The patient is completing intravenous antibiotics for her urinary tract infection. The patient is not on diuretics and has no clinical signs of acute congestive heart failure. Blood pressure is adequately controlled and respiratory parameters are stable and she is tolerating feedings by G-tube. Due to her good neurologic state as well as multiple comorbidities, she is at high risk for clinical decline and rehospitalization. Efforts are made to avoid this process by speaking regularly with the staff at the [facility]. Nick Gilbert M.D. DR: Trevor JOB#: [id number] CC:
--- NOTE | 2017-04-30 18:08 | Discharge Summary ---
Discharge Summary Hospital Course Date of Admission Mar 31, 2017 at 10:35 Date of Discharge Apr 29, 2017 at 20:40 Admitting Diagnosis resp distress, ams HPI Joelle Reynaga is a 72 year old female who was admitted on Mar 31, 2017 at 10:35 for Respiratory Distress,Altered Mental Status Hospital Course [id number] Discharge Discharge Disposition Patient was discharged to SNF/Subacute Facility(03) Discharge Diagnoses: Omaira Carrillo NP Apr 30, 2017 18:08
--- NOTE | 2017-05-01 16:15 | Discharge Summary 2 SIG ---
DATE OF ADMISSION: 03/31/2017 DATE OF DISCHARGE: 04/29/2017 CONSULTANTS: 1. Adams Mo M.D. 2. Steve Baker M.D. 3. Nick Gilbert M.D. 4. Louise Vazquez M.D. BRIEF HOSPITAL COURSE: The patient is an unfortunate 72-year-old female, who has a history of seizure disorder. She was transferred from [facility] facility for altered mentation. The patient had fever and low oxygen saturation on room air. She has history of chronic hypoxia, respiratory failure, history of encephalopathy, and quadriplegia. On arrival to ED, the patient was tachycardic and hypoxic and was placed on BiPAP. Laboratories showed elevated lactate to 4.6. Chest x-ray showed right mid lung. ABGs showed hypoxia. She was given IV bolus resuscitation, however, remained hypotensive. A central line was placed in through the right femoral and was started on IV pressors. She was admitted to ICU for septic shock, pneumonia, urinary tract infection, severe hyponatremia, and seizure disorder. She was given heparin for DVT prophylaxis and was given bronchodilators and IV fluid hydration. She was initially given aztreonam and IV vancomycin. Condition deteriorated and developed worsening respiratory distress followed by ventricular tachycardia. On 04/01/2017, a code Blue was called and the patient was orally intubated. She had rapid atrial fibrillation. Venous duplex was also positive for DVT. She was given IV Cardizem and was started on IV heparin. Her rhythm reverted back to normal sinus rhythm with amiodarone. Echocardiogram done showed normal left ventricular size and function to extent visualized. Left ventricular ejection fraction estimated to be grossly normal. Sputum culture showed growth of Pseudomonas. Meropenem was changed to Azactam. Vancomycin discontinued. Amikacin inhalation was added. The patient's platelets dropped. She was taken off IV pressors. Amiodarone intravenous was stopped due to pauses and pacing pads have been placed on the chest. Amiodarone was switched to G-tube b.i.d. She had worsening anemia and received one unit packed RBC blood transfusion. The patient was placed on Xarelto and heparin was discontinued. The patient was eventually extubated. On 04/08/2017, amiodarone was discontinued due to pauses and bradycardia. PICC line was inserted on 04/07/2017 and was transferred out of ICU on 04/09/2017. She remained on close observation as antiarrhythmics was on hold. She finished antibiotic treatment. She continued to have worsening anemia and pancytopenia. Xarelto was eventually discontinued. Thyroid function was elevated and was given thyroid replacement. Xarelto was discontinued and was switched to warfarin. INR goal of 2 to 2.5. Leukopenia improved off Xarelto. Anemia stable. She had an episode of high residual per GT and was given Reglan. She had episodes of confusion, disorientation, and was agitated. Dr. Vazquez was consulted and was diagnosed to have delirium due to generalized medical condition. Olanzapine was given. She had an episode of agitation and was stable. Zyprexa was eventually discontinued. She was restarted on gentamicin. Regimen was updated to therapeutic INR goal of 2 to 3 with close monitoring of blood counts, INR, and metabolic parameters. The patient was eventually discharged to SNF. FINAL DIAGNOSES: 1. Acute respiratory failure. 2. Acute deep venous thrombosis, on anticoagulation. 3. Urinary tract infection with Pseudomonas. 4. Acute anemia requiring transfusion. 5. Leukopenia. 6. Sepsis with septic shock. 7. Seizure disorder. 8. Acute renal failure. 9. Pseudomonas/Escherichia coli urinary tract infection. 10. Pseudomonas pneumonia. 11. Quadriplegia/bed-bound state. 12. Dysphagia, on gastrostomy tube. 13. Hypernatremia. 14. Acute on chronic diastolic congestive heart failure. 15. Gastroparesis. 16. Subtherapeutic INR. 17. Delirium due to medical condition. 18. Hypertensive heart disease. 19. Hypokalemia. 20. Mid sacral pressure ulcer stage II, present on admission. Caden Recio M.D. I have been assigned to dictate discharge summary on this account and I was not involved in the patient's management. Omaira Carrillo N.P. DR: SAJAN JOB#: [id number] CC:
[2017-05-10] MEDS ORDERED: Dyna-Hex 2% Top Sol 8oz TOPIC SCH (21:00)
== END 2017-04-29 20:40 | DRG 870 ==
LOC: EDBD 09:53 → EMR 10:15 → ICU 10:35 → EDBEDREQ 10:42 → EDBEDREQSVC 15:11 → EDBEDREQ 15:17 → 2W 04-09 12:00 → 2E 04-10 00:51 → 4E 04-11 17:57
DX: A41.9 Sepsis, unspecified organism (principal); J96.01 Acute respiratory failure with hypoxia; J69.0 Pneumonitis due to inhalation of food and vomit; R65.21 Severe sepsis with septic shock; E43 Unspecified severe protein-calorie malnutrition; G82.50 Quadriplegia, unspecified; J15.1 Pneumonia due to Pseudomonas; I50.33 Acute on chronic diastolic (congestive) heart failure; L89.152 Pressure ulcer of sacral region, stage 2; I46.9 Cardiac arrest, cause unspecified; N17.9 Acute kidney failure, unspecified; N39.0 Urinary tract infection, site not specified; I82.412 Acute embolism and thrombosis of left femoral vein; I82.432 Acute embolism and thrombosis of left popliteal vein; E87.0 Hyperosmolality and hypernatremia; I47.2 Ventricular tachycardia; D61.818 Other pancytopenia; Z68.41 Body mass index [BMI] 40.0-44.9, adult; G40.909 Epilepsy, unspecified, not intractable, without status epilepticus; D64.9 Anemia, unspecified; R13.10 Dysphagia, unspecified; Z93.1 Gastrostomy status; E86.0 Dehydration; I11.0 Hypertensive heart disease with heart failure; K31.84 Gastroparesis; E87.6 Hypokalemia; I48.0 Paroxysmal atrial fibrillation; Z79.01 Long term (current) use of anticoagulants; R41.0 Disorientation, unspecified; G35 Multiple sclerosis; E03.9 Hypothyroidism, unspecified; R19.7 Diarrhea, unspecified; D70.2 Other drug-induced agranulocytosis; T45.515A Adverse effect of anticoagulants, initial encounter; Y92.239 Unspecified place in hospital as the place of occurrence of the external cause; D69.6 Thrombocytopenia, unspecified
CPT/HCPCS: 36415; 36569; 36600; 71010; 74000; 76937; 80048; 80053; 80164; 80170; 80202; 81003; 82550; 82553; 82607; 82728; 82746; 82803; 82962; 83540; 83550; 83605; 83735; 83880; 84132; 84443; 84484; 85007; 85025; 85610; 85730; 86850; 86900; 86901; 86920; 87040; 87070; 87081; 87086; 87181; 87205; 87324; 93005; 93306; 93970; 94002; 94003; 94640; 94660; 94664; 94760; J0282; J2765

== ENCOUNTER 2018-01-11 15:00 | Inpatient (IN) | payer MEDICAID, MEDICARE ==
[~2018-01-11] VITALS: Ht 162.6 cm; Wt 90.7 kg
[~2018-01-11 15:00] MED LIST: ACETAMINOP160 MG/54 GT; ALBUTEROL2.5 MG/3 M INH; ASCORBIC ACID500 MG GT; COLACE100 MG GT; COUMADIN5 MG ORAL; FAMOTIDINE20 MG GT; FLONASE ALLERG9.9 ML NS; FUROSEMIDE20 M1 GT; GENTAMICIN IVPB; HYDRALAZINE HCL10 MG GT; IMODIUM2 MG/10 ML GT; LANSOPRAZOLE30 MG GT; LEVOTHYROXINE50 MCG GT; LEVOTHYROXINE75 MCG GT; METOCLOPRA10 MG/10 M GT; MOM30 ML GT; PROCRIT3000 UNIT/ SUBQ; REGLAN10 MG GT; VALPROIC A500 MG/10 GT; VALPROIC ACID250 MG GT; VIMPAT50 MG GT; ZOFRAN4 M3 GT
[2018-01-11 15:04] VITALS: BP 115/49
[2018-01-11] MEDS ORDERED: IPRATROPIU0.2 MG/1 M HHN (15:33)
[2018-01-11] MEDS ORDERED: OMEPRAZOLE20 M3 GT (15:34)
[2018-01-11] MEDS ORDERED: XARELTO10 MG GT (15:37)
[2018-01-11] MEDS ORDERED: VITAMIN C500 M1 ORAL (15:37)
[2018-01-11 16:40] VITALS: BP 129/84
[2018-01-11 16:49] LABS: BASOPHILS % (AUTO) 0.5 % (0.0-2.0); EOSINOPHILS % (AUTO) 0.5 % (0.0-3.0); HEMOGLOBIN 11.8 G/DL (12.0-16.0); LYMPHOCYTES % (AUTO) 17.6 % (20.0-45.0); MEAN CORPUSCULAR VOLUME 101 FL (80-99); MONOCYTES % (AUTO) 7.6 % (1.0-10.0); NEUTROPHILS % (AUTO) 73.9 % (45.0-75.0); PLATELET COUNT 153 K/UL (150-450); RED BLOOD COUNT 3.66 M/UL (4.20-5.40); RED CELL DISTRIBUTION WIDTH 15.3 % (11.6-14.8); WHITE BLOOD COUNT 7.4 K/UL (4.8-10.8)
[2018-01-11 16:59] LABS: APPEARANCE,URINE CLOUDY; BILIRUBIN, URINE NEGATIVE (NEGATIVE); GLUCOSE, URINE (UA) NEGATIVE (NEGATIVE); KETONES,URINE NEGATIVE (NEGATIVE); LEUKOCYTE ESTERASE ,URINE 3+ (NEGATIVE); NITRITE,URINE POSITIVE (NEGATIVE); PH,URINE 7 (4.5-8.0); PROTEIN,URINE 2+ (NEGATIVE); UROBILINOGEN,URINE 1 MG/DL (0.0-1.0)
[2018-01-11 17:00] LABS: COLOR,URINE YELLOW
--- NOTE | 2018-01-11 17:35 | Diagnostic Imaging Report ---
Indication: Shortness of breath Technique: One view of the chest Comparison: 04/05/2017 Findings: Inspiration is suboptimal. Only habitus also limits evaluation. The patient is rotated to the right. Previously demonstrated nasogastric tube is no longer evident. There is atelectasis at the left lung base. There is chronic appearing interstitial prominence. No definite infiltrates. No definite effusions. Impression: Somewhat limited exam. No definite acute process Left basilar atelectasis
[2018-01-11 18:48] LABS: ANION GAP 3 mmol/L (5-15); BLOOD UREA NITROGEN 16 mg/dL (7-18); CALCIUM 8.9 MG/DL (8.5-10.1); CARBON DIOXIDE 35 MMOL/L (21-32); CHLORIDE 105 MMOL/L (98-107); CREATININE 0.4 MG/DL (0.55-1.30); POTASSIUM 4.5 MMOL/L (3.5-5.1); SODIUM 143 MMOL/L (136-145)
[2018-01-11 19:03] LABS: ALANINE AMINOTRANSFERASE 6 U/L (12-78); ALBUMIN/GLOBULIN RATIO 0.4 (1.0-2.7); ALKALINE PHOSPHATASE 57 U/L (46-116); ASPARTATE AMINO TRANSFERASE 9 U/L (15-37); BILIRUBIN,TOTAL 0.2 MG/DL (0.2-1.0); CKMB < 0.5 NG/ML (0.0-3.6); CREATINE KINASE 14 U/L (26-308); PHOSPHORUS 3.7 MG/DL (2.5-4.9)
[2018-01-11 19:47] VITALS: BP 143/114
[2018-01-11] MEDS ORDERED: Ipratropium 0.02% Inh Soln 2.5ml UD HHN PRN (22:00)
[2018-01-11] MEDS ORDERED: Acetaminophen Soln 160mg/5ml ORAL PRN (22:00)
[2018-01-11] MEDS ORDERED: Milk of Magnesia 30ml Ud GT PRN (22:00)
[2018-01-11] MEDS ORDERED: Albuterol ud Inhalation HHN PRN (22:00)
--- NOTE | 2018-01-11 22:47 | Emergency Room Report ---
History of Present Illness General Chief Complaint: General Complaint Source: Medical Record Present Illness HPI Patient is a 72-year-old female brought in by EMS after increased lower extremity swelling patient was noted to have prior history of multiple sclerosis as well as generalized weakness. Patient is chronically neurologically impaired. Patient was noted to have increased difficulty with foot swelling. The patient presented from [facility]. Allergies: Coded Allergies: CEFTRIAXONE (Verified Allergy, Unknown, 03/31/17) PENICILLINS (Verified Allergy, Unknown, 03/31/17) SULFA (SULFONAMIDE ANTIBIOTICS) (Verified Allergy, Unknown, 03/31/17) TAZOBACTAM (Verified Allergy, Unknown, 03/31/17) Uncoded Allergies: SULFA (Allergy, Unknown, 01/11/18) Patient History Past Medical History: see triage record Reviewed Nursing Documentation: PMH: Agreed; PSxH: Agreed Nursing Documentation-PMH Past Medical History: No History, Except For Hx Cardiac Problems: No Hx Cancer: No Hx Gastrointestinal Problems: Yes - enterocolitis due to c diff Hx Neurological Problems: Yes - functional quadriplegia Hx Encephalitis: Yes - encephalopathy Hx Seizures: Yes Hx Multiple Sclerosis: Yes Hx Memory Loss: Yes Hx Concentration Difficulty: Yes Hx Speech Problem: Yes Hx Aphasia: Yes Review of Systems All Other Systems: limited - by Physical Exam Vital Signs Date Time Temp Pulse Resp B/P (MAP) Pulse Ox O2 Delivery O2 Flow Rate FiO2 01/11/18 14:54 98.0 85 18 133/90 95 Nasal Cannula 2.0 98.1 Sp02 EP Interpretation: reviewed, normal General Appearance: normal inspection, alert Head: atraumatic ENT: normal ENT inspection, hearing grossly normal, normal voice Neck: normal inspection, full range of motion, supple, no bony tend Respiratory: normal inspection, lungs clear, normal breath sounds, no respiratory distress, no retraction, no wheezing Cardiovascular #1: regular rate, rhythm, no edema Gastrointestinal: normal inspection, normal bowel sounds, non tender, soft, no guarding, no hernia Genitourinary: no CVA tenderness Musculoskeletal: normal inspection, back normal, normal range of motion Neurologic: normal inspection, alert, responsive, speech normal Psychiatric: normal inspection, judgement/insight normal, mood/affect normal Skin: normal inspection, normal color, no rash Medical Decision Making Diagnostic Impression: Primary Impression: Seizure disorder Additional Impressions: Chronic deep vein thrombosis (DVT) Infection due to drug-resistant organism UTI (urinary tract infection) ER Course The patient presented for lower extremity swelling. Differential diagnosis included but was not limited to fracture, contusion, vascular insufficiency, aortic aneurysm, cellulitis, DVT. The urinalysis showed evidence of urinary infection with too numerous to count white cells as well as red cells. The patient's previously noted to have multidrug-resistant organism. The patient started on IV antibiotics. Duplex ultrasound showed the left lower extremity DVT which appears chronic. The patient was discussed with Dr. Caden Soria for inpatient management due to multidrug-resistant infection Labs Test 01/11/18 16:10 01/11/18 16:15 01/11/18 17:00 01/11/18 18:00 Urine Color Yellow Urine Appearance Cloudy Urine pH 7 (4.5-8.0) Urine Specific [place] 1.005 (1.005-1.035) Urine Protein 2+ (NEGATIVE) Urine Glucose (UA) Negative (NEGATIVE) Urine Ketones Negative (NEGATIVE) Urine Occult Blood 5+ (NEGATIVE) Urine Nitrite Positive (NEGATIVE) Urine Bilirubin Negative (NEGATIVE) Urine Urobilinogen 1 MG/DL (0.0-1.0) Urine Leukocyte Esterase 3+ (NEGATIVE) Urine RBC Tntc /HPF (0 - 2) Urine WBC Tntc /HPF (0 - 2) Urine Squamous Epithelial Cells Moderate /LPF (NONE/OCC) Urine Bacteria Many /HPF (NONE) White Blood Count 7.4 K/UL (4.8-10.8) Red Blood Count 3.66 M/UL (4.20-5.40) Hemoglobin 11.8 G/DL (12.0-16.0) Hematocrit 37.0 % (37.0-47.0) Mean Corpuscular Volume 101 FL (80-99) Mean Corpuscular Hemoglobin 32.1 PG (27.0-31.0) Mean Corpuscular Hemoglobin Concent 31.8 G/DL (32.0-36.0) Red Cell Distribution Width 15.3 % (11.6-14.8) Platelet Count 153 K/UL (150-450) Mean Platelet Volume 8.2 FL (6.5-10.1) Neutrophils (%) (Auto) 73.9 % (45.0-75.0) Lymphocytes (%) (Auto) 17.6 % (20.0-45.0) Monocytes (%) (Auto) 7.6 % (1.0-10.0) Eosinophils (%) (Auto) 0.5 % (0.0-3.0) Basophils (%) (Auto) 0.5 % (0.0-2.0) Troponin I 0.000 ng/mL (0.000-0.056) Lactic Acid Level 0.70 mmol/L (0.66-2.22) Sodium Level 143 MMOL/L (136-145) Potassium Level 4.5 MMOL/L (3.5-5.1) Chloride Level 105 MMOL/L (98-107) Carbon Dioxide Level 35 MMOL/L (21-32) Anion Gap 3 mmol/L (5-15) Blood Urea Nitrogen 16 mg/dL (7-18) Creatinine 0.4 MG/DL (0.55-1.30) Estimat Glomerular Filtration Rate mL/min (>60) Glucose Level 102 MG/DL (74-106) Calcium Level 8.9 MG/DL (8.5-10.1) Phosphorus Level 3.7 MG/DL (2.5-4.9) Magnesium Level 1.9 MG/DL (1.8-2.4) Total Bilirubin 0.2 MG/DL (0.2-1.0) Aspartate Amino Transf (AST/SGOT) 9 U/L (15-37) Alanine Aminotransferase (ALT/SGPT) 6 U/L (12-78) Alkaline Phosphatase 57 U/L (46-116) Total Creatine Kinase 14 U/L (26-308) Creatine Kinase MB < 0.5 NG/ML (0.0-3.6) Creatine Kinase MB Relative Index 3.5 Pro-B-Type Natriuretic Peptide 414 pg/mL (0-125) Total Protein 7.6 G/DL (6.4-8.2) Albumin 2.0 G/DL (3.4-5.0) Globulin 5.6 g/dL Albumin/Globulin Ratio 0.4 (1.0-2.7) Last Vital Signs Date Time Temp Pulse Resp B/P (MAP) Pulse Ox O2 Delivery O2 Flow Rate FiO2 01/11/18 20:08 71 20 143/114 99 Nasal Cannula 01/11/18 19:47 98.1 2.0 98.1 Status: unchanged Disposition: ADMITTED INPATIENT Condition: Serious Referrals: CADEN SORIA (PCP) Peter Shah Jan 11, 2018 22:47
[2018-01-11] MEDS: Metoclopramide 10mg/10ml Liq GT SCH (23:14)
[2018-01-11] MEDS: HydrALAZINE 10mg Tab GT SCH (23:15)
[2018-01-12] VITALS: BP 124/70
[2018-01-12] MEDS: Aztreonam Inj 1 GM in D5W 55 ML IVPB SCH ×2 (02:13→13:56)
[2018-01-12 04:00] VITALS: BP 132/64
[2018-01-12] MEDS: HydrALAZINE 10mg Tab GT SCH ×3 (06:22→17:59)
[2018-01-12] MEDS: Metoclopramide 10mg/10ml Liq GT SCH ×3 (06:22→21:37)
[2018-01-12] MEDS ORDERED: Acetaminophen 650mg/20.3ml ORAL PRN (06:45)
--- NOTE | 2018-01-12 07:45 | Diagnostic Imaging Report ---
Indication: Shortness of breath Technique: One view of the chest Comparison: 04/05/2017 Findings: Inspiration is suboptimal. Only habitus also limits evaluation. The patient is rotated to the right. Previously demonstrated nasogastric tube is no longer evident. There is atelectasis at the left lung base. There is chronic appearing interstitial prominence. No definite infiltrates. No definite effusions. Impression: Somewhat limited exam. No definite acute process Left basilar atelectasis -- APPROVED REPORT CPT Code: 90987 Comments Technically difficult/limited visualization due to vessel depth (thigh and calf area). LEFT LEG: Venous imaging reveals recanalized chronic thrombus in the common femoral, and superficial femoral veins. Imaging also reveals patency of the common femoral, popliteal and calf veins. The greater saphenous vein is also within normal limits. Doppler indicates normal spontaneous flow within these segments. There is no evidence of acute deep vein thrombosis.
[2018-01-12 08:00] VITALS: BP 100/60
[2018-01-12 08:37] LABS: BASOPHILS % (AUTO) 0.5 % (0.0-2.0); EOSINOPHILS % (AUTO) 0.6 % (0.0-3.0); HEMOGLOBIN 11.6 G/DL (12.0-16.0); LYMPHOCYTES % (AUTO) 18.4 % (20.0-45.0); MEAN CORPUSCULAR VOLUME 101 FL (80-99); MONOCYTES % (AUTO) 9.3 % (1.0-10.0); NEUTROPHILS % (AUTO) 71.2 % (45.0-75.0); PLATELET COUNT 143 K/UL (150-450); RED BLOOD COUNT 3.55 M/UL (4.20-5.40); RED CELL DISTRIBUTION WIDTH 15.4 % (11.6-14.8); WHITE BLOOD COUNT 5.3 K/UL (4.8-10.8)
[2018-01-12 08:49] LABS: ALANINE AMINOTRANSFERASE < 6 U/L (12-78); ALBUMIN 2.1 G/DL (3.4-5.0); ALBUMIN/GLOBULIN RATIO 0.4 (1.0-2.7); ALKALINE PHOSPHATASE 67 U/L (46-116); ANION GAP 3 mmol/L (5-15); ASPARTATE AMINO TRANSFERASE 10 U/L (15-37); BILIRUBIN,TOTAL 0.3 MG/DL (0.2-1.0); BLOOD UREA NITROGEN 17 mg/dL (7-18); CALCIUM 8.9 MG/DL (8.5-10.1); CARBON DIOXIDE 33 MMOL/L (21-32); CHLORIDE 104 MMOL/L (98-107); CREATININE 0.4 MG/DL (0.55-1.30); SODIUM 140 MMOL/L (136-145)
[2018-01-12] MEDS ORDERED: Lacosamide 50mg tablet ORAL SCH (09:00)
[2018-01-12] MEDS: Xarelto 10mg tab GT SCH (09:31)
[2018-01-12] MEDS: Ascorbic Acid 500mg tab GT SCH ×2 (09:32→17:59)
[2018-01-12] MEDS: Docusate 100mg cap ORAL SCH ×2 (09:33→17:59)
[2018-01-12 12:00] VITALS: BP 125/89
[2018-01-12 16:00] VITALS: BP 129/58
--- NOTE | 2018-01-12 16:09 | Cardiology Report ---
APPROVED REPORT EKG Measurement Heart [id number] Normal sinus rhythm Normal ECG
--- NOTE | 2018-01-12 17:12 | Diagnostic Imaging Report ---
Indication: Post nasogastric tube placement Technique: Supine view of the upper abdomen Comparison: 04/24/2017 Findings: Interim placement of a nasogastric tube, tip projected at the level gastric antrum, in satisfactory position. Numerous right renal pelvic and calyceal calcifications are again demonstrated. Bowel gas pattern is unremarkable. Included chest demonstrates cardiomegaly and possible left pleural fluid Impression: Satisfactory nasogastric intubation Other findings as described
--- NOTE | 2018-01-12 19:00 | History and Physical Report ---
DATE OF ADMISSION: 01/11/2018 CHIEF COMPLAINT: Sepsis. HISTORY OF PRESENT ILLNESS: The patient is an unfortunate 72-year-old female. She has history of developmental delay, seizure disorder, congestive heart failure, dysphagia, status post G-tube. She presented from care home facility with complaints of generalized edema. On evaluation in the emergency room, the patient's vital signs were stable. She was noted to have mild amount of edema and elevated . She had evidence of urinary tract infection. The patient was pancultured and started on antibiotic therapy and is now admitted for further evaluation and care. PAST MEDICAL HISTORY: As above. PAST SURGICAL HISTORY: Includes G-tube. CURRENT MEDICATIONS: Reconciled and reviewed. ALLERGIES: Ceftriaxone, penicillin, sulfa, and tazobactam. FAMILY HISTORY: Noncontributory. SOCIAL HISTORY: There is no known history of tobacco, ethanol, or drugs. The patient is conserved. REVIEW OF SYSTEMS: Unobtainable as the patient is nonverbal. PHYSICAL EXAMINATION: GENERAL: The patient is well developed, in no apparent distress. VITAL SIGNS: Temperature 97.8 degrees, pulse 81, respirations 18, and blood pressure 132/64. HEART: Regular rate and rhythm. LUNGS: Clear. ABDOMEN: Soft, nontender, and nondistended. EXTREMITIES: Without clubbing or cyanosis. There is trace edema noted. LABORATORY AND DIAGNOSTIC DATA: CBC and CMP were unremarkable. Urine showed too numerous count wbc's. Venous duplex showed chronic DVT. ASSESSMENT: This is a pleasant female, who is admitted with generalized edema secondary to venous insufficiency and may be possibly some volume overload. She also has UTI. PROBLEM LIST: 1. Sepsis. 2. UTI. 3. Toxic metabolic encephalopathy. 4. Functional quadriplegia. 5. Chronic DVT. PLAN: IV antibiotics, . We will consider V/Q scan. Continue Xarelto. Continue seizure medications. ID and Cardiology evaluations will be obtained. Caden Recio M.D. DR: RERE JOB#: [id number] CC:
[2018-01-12 20:00] VITALS: BP 123/64
[2018-01-12] MEDS: Valproic Acid 250mg/5ml Liquid NG SCH (21:37)
[2018-01-12] MEDS: Lacosamide 50mg tablet ORAL SCH (21:37)
[2018-01-13] VITALS: BP 133/65
[2018-01-13] MEDS: Aztreonam Inj 1 GM in D5W 55 ML IVPB SCH ×2 (00:23→16:36)
[2018-01-13] MEDS: HydrALAZINE 10mg Tab GT SCH ×4 (00:23→17:03)
[2018-01-13] MEDS: Metoclopramide 10mg/10ml Liq GT SCH ×3 (06:00→20:54)
--- NOTE | 2018-01-13 07:36 | General Progress Note ---
Assessment/Plan Problem List: (1) Paroxysmal atrial fibrillation with rapid ventricular response ICD Codes: I48.0 - Paroxysmal atrial fibrillation SNOMED: 742531137, 402239544583087 (2) UTI (urinary tract infection) ICD Codes: N39.0 - Urinary tract infection, site not specified SNOMED: 74417683 (3) Infection due to drug-resistant organism ICD Codes: Z16.30 - Resistance to unspecified antimicrobial drugs SNOMED: 418659245 (4) Chronic deep vein thrombosis (DVT) ICD Codes: I82.509 - Chronic embolism and thrombosis of unspecified deep veins of unspecified lower extremity SNOMED: 19785406251027848 (5) Seizure disorder ICD Codes: G40.909 - Epilepsy, unspecified, not intractable, without status epilepticus SNOMED: 283079715 Status: stable Assessment/Plan iv abx follow up cultures tube feeds GI called for clogged gt. sz rx monitor labs Subjective ROS Limited/Unobtainable: No Constitutional: Reports: malaise, weakness HEENT: Reports: no symptoms Cardiovascular: Reports: no symptoms Respiratory: Reports: no symptoms Gastrointestinal/Abdominal: Reports: difficulty swallowing Genitourinary: Reports: no symptoms Neurologic/Psychiatric: Reports: pre-existing deficit, seizure Endocrine: Reports: no symptoms Hematologic/Lymphatic: Reports: no symptoms Allergies: Coded Allergies: CEFTRIAXONE (Verified Allergy, Unknown, 03/31/17) PENICILLINS (Verified Allergy, Unknown, 03/31/17) SULFA (SULFONAMIDE ANTIBIOTICS) (Verified Allergy, Unknown, 03/31/17) TAZOBACTAM (Verified Allergy, Unknown, 03/31/17) Uncoded Allergies: SULFA (Allergy, Unknown, 01/11/18) All Systems: reviewed and negative except above Subjective confused at baseline. on iv abx. gt flogged. ngt placed. Objective Last 24 Hour Vital Signs Date Time Temp Pulse Resp B/P (MAP) Pulse Ox O2 Delivery O2 Flow Rate FiO2 01/13/18 00:23 133/65 01/13/18 00:00 81 01/13/18 00:00 98.1 90 22 133/65 97 Nasal Cannula 2.0 98.1 01/12/18 21:10 79 18 Nasal Cannula 2.0 24 01/12/18 20:00 98.1 64 23 123/64 97 Nasal Cannula 2.0 98.1 01/12/18 20:00 79 01/12/18 17:59 129/58 01/12/18 16:00 98.2 86 20 129/58 95 Nasal Cannula 2.0 98.2 01/12/18 15:30 90 01/12/18 13:56 125/89 01/12/18 12:00 97.7 74 20 125/89 96 Nasal Cannula 2.0 97.7 01/12/18 11:27 74 01/12/18 08:00 97.5 76 20 100/60 98 Nasal Cannula 2.0 97.5 01/12/18 07:50 78 01/12/18 07:35 80 20 Nasal Cannula 2.0 24 Intake and Output 01/12/18 01/13/18 19:00 07:00 # Voids 1 Height (Feet): 5 Height (Inches): 4.00 Weight (Pounds): 200 General Appearance: WD/WN, lethargic, confused Neck: supple Cardiovascular: normal rate, regular rhythm Respiratory/Chest: chest wall non-tender, lungs clear, normal breath sounds Abdomen: normal bowel sounds, non tender, soft, no organomegaly Edema: no edema noted Arm (L), no edema noted Arm (R), no edema noted Leg (L), no edema noted Leg (R), no edema noted Pedal (L), no edema noted Pedal (R), no edema noted Generalized Neurologic: disoriented, unresponsive, aphasia BREANNE SORIA Jan 13, 2018 07:36
[2018-01-13 08:00] VITALS: BP 161/78
[2018-01-13] MEDS: Valproic Acid 250mg/5ml Liquid NG SCH ×2 (09:56→20:54)
[2018-01-13] MEDS: Xarelto 10mg tab GT SCH (09:57)
[2018-01-13] MEDS: Lacosamide 50mg tablet ORAL SCH ×2 (09:57→20:54)
[2018-01-13] MEDS: Ascorbic Acid 500mg tab GT SCH ×2 (09:57→17:03)
[2018-01-13] MEDS: Docusate 100mg cap ORAL SCH (09:57)
[2018-01-13 11:59] VITALS: BP 116/78
[2018-01-13 16:52] VITALS: BP 154/91
[2018-01-13] MEDS: Docusate 100mg/10ml Liq NG SCH (17:02)
[2018-01-13 20:00] VITALS: BP 111/58
[2018-01-14] VITALS: BP 120/57
[2018-01-14] MEDS: Aztreonam Inj 1 GM in D5W 55 ML IVPB SCH ×3 (00:42→16:17)
[2018-01-14 04:00] VITALS: BP 133/65
[2018-01-14] MEDS: Metoclopramide 10mg/10ml Liq GT SCH ×3 (06:19→21:38)
[2018-01-14] MEDS: HydrALAZINE 10mg Tab GT SCH ×4 (06:19→17:30)
[2018-01-14 08:00] VITALS: BP 139/68
[2018-01-14] MEDS: Ascorbic Acid 500mg tab GT SCH ×2 (08:26→17:29)
[2018-01-14] MEDS: Xarelto 10mg tab GT SCH (08:26)
[2018-01-14] MEDS: Docusate 100mg/10ml Liq NG SCH ×2 (08:27→17:29)
[2018-01-14] MEDS: Valproic Acid 250mg/5ml Liquid NG SCH ×2 (08:28→21:39)
[2018-01-14] MEDS: Lacosamide 50mg tablet ORAL SCH ×2 (08:28→21:38)
--- NOTE | 2018-01-14 08:50 | General Progress Note ---
Assessment/Plan Problem List: (1) Paroxysmal atrial fibrillation with rapid ventricular response ICD Codes: I48.0 - Paroxysmal atrial fibrillation SNOMED: 587949208, 601608127423387 (2) UTI (urinary tract infection) ICD Codes: N39.0 - Urinary tract infection, site not specified SNOMED: 63198534 (3) Infection due to drug-resistant organism ICD Codes: Z16.30 - Resistance to unspecified antimicrobial drugs SNOMED: 726493963 (4) Chronic deep vein thrombosis (DVT) ICD Codes: I82.509 - Chronic embolism and thrombosis of unspecified deep veins of unspecified lower extremity SNOMED: 29945037736316573 (5) Seizure disorder ICD Codes: G40.909 - Epilepsy, unspecified, not intractable, without status epilepticus SNOMED: 965587929 Assessment/Plan iv abx follow up cultures tube feeds GI called to replace gt id eval sz rx monitor labs Subjective ROS Limited/Unobtainable: No Constitutional: Reports: malaise, weakness HEENT: Reports: no symptoms Cardiovascular: Reports: no symptoms Respiratory: Reports: no symptoms Gastrointestinal/Abdominal: Reports: difficulty swallowing Genitourinary: Reports: no symptoms Neurologic/Psychiatric: Reports: no symptoms Endocrine: Reports: no symptoms Hematologic/Lymphatic: Reports: no symptoms Allergies: Coded Allergies: CEFTRIAXONE (Verified Allergy, Unknown, 03/31/17) PENICILLINS (Verified Allergy, Unknown, 03/31/17) SULFA (SULFONAMIDE ANTIBIOTICS) (Verified Allergy, Unknown, 03/31/17) TAZOBACTAM (Verified Allergy, Unknown, 03/31/17) Uncoded Allergies: SULFA (Allergy, Unknown, 01/11/18) All Systems: reviewed and negative except above Subjective confused at baseline. on iv abx. gt came out. ngt placed. Objective Last 24 Hour Vital Signs Date Time Temp Pulse Resp B/P (MAP) Pulse Ox O2 Delivery O2 Flow Rate FiO2 01/14/18 06:19 120/57 01/14/18 00:00 120/57 01/13/18 19:29 Nasal Cannula 2.0 28 01/13/18 19:29 99 Nasal Cannula 2.0 28 01/13/18 19:27 88 18 Nasal Cannula 2.0 28 01/13/18 17:03 154/91 01/13/18 16:52 97.5 92 18 154/91 99 Nasal Cannula 2.0 97.5 01/13/18 15:18 84 01/13/18 12:35 116/78 01/13/18 12:01 75 01/13/18 11:59 97.5 84 18 116/78 99 Nasal Cannula 2.0 97.5 Intake and Output 01/13/18 01/14/18 19:00 07:00 Intake Total 625 ml 115 ml Balance 625 ml 115 ml Intake Oral 0 ml Free Water 100 ml 50 ml Tube Feeding 525 ml 65 ml # Voids 5 5 Height (Feet): 5 Height (Inches): 4.00 Weight (Pounds): 200 Objective General Appearance: WD/WN, lethargic, confused Neck: supple Cardiovascular: normal rate, regular rhythm Respiratory/Chest: chest wall non-tender, lungs clear, normal breath sounds Abdomen: normal bowel sounds, non tender, soft, no organomegaly Edema: no edema noted Arm (L), no edema noted Arm (R), no edema noted Leg (L), no edema noted Leg (R), no edema noted Pedal (L), no edema noted Pedal (R), no edema noted Generalized Neurologic: disoriented, unresponsive, aphasia BREANNE SORIA Jan 14, 2018 08:49
[2018-01-14 10:36] LABS: BASOPHILS % (AUTO) 1.4 % (0.0-2.0); EOSINOPHILS % (AUTO) 1.3 % (0.0-3.0); HEMOGLOBIN 10.7 G/DL (12.0-16.0); LYMPHOCYTES % (AUTO) 21.8 % (20.0-45.0); MEAN CORPUSCULAR VOLUME 101 FL (80-99); MONOCYTES % (AUTO) 8.1 % (1.0-10.0); NEUTROPHILS % (AUTO) 67.4 % (45.0-75.0); PLATELET COUNT 200 K/UL (150-450); RED BLOOD COUNT 3.36 M/UL (4.20-5.40); RED CELL DISTRIBUTION WIDTH 14.8 % (11.6-14.8)
[2018-01-14 10:48] LABS: ALANINE AMINOTRANSFERASE < 6 U/L (12-78); ALBUMIN 2.3 G/DL (3.4-5.0); ALBUMIN/GLOBULIN RATIO 0.4 (1.0-2.7); ALKALINE PHOSPHATASE 61 U/L (46-116); ANION GAP 2 mmol/L (5-15); ASPARTATE AMINO TRANSFERASE 11 U/L (15-37); BILIRUBIN,TOTAL 0.2 MG/DL (0.2-1.0); BLOOD UREA NITROGEN 20 mg/dL (7-18); CALCIUM 8.7 MG/DL (8.5-10.1); CARBON DIOXIDE 39 MMOL/L (21-32); CHLORIDE 105 MMOL/L (98-107); CREATININE 0.5 MG/DL (0.55-1.30); POTASSIUM 3.5 MMOL/L (3.5-5.1); SODIUM 146 MMOL/L (136-145)
[2018-01-14 12:00] VITALS: BP 132/72
[2018-01-14] MEDS ORDERED: Vancomycin 1250mg/D5W 250ml IVPB ONE (14:00)
[2018-01-14 16:00] VITALS: BP 130/82
--- NOTE | 2018-01-14 17:01 | General Progress Note ---
Assessment/Plan Assessment/Plan GI CONSULT Assessment - GT dislodgement --> 24 FR lynn replaced with 20FR GT catheter - Abdominal breathing with high pressure --> at risk for GT site leak and GT failure - OBS - contractures - UTI - h/o DVT - Poor Px Recommendations - restart TF - watch for GT site leak - Elevte HOB - GT care Subjective Allergies: Coded Allergies: CEFTRIAXONE (Verified Allergy, Unknown, 03/31/17) PENICILLINS (Verified Allergy, Unknown, 03/31/17) SULFA (SULFONAMIDE ANTIBIOTICS) (Verified Allergy, Unknown, 03/31/17) TAZOBACTAM (Verified Allergy, Unknown, 03/31/17) Objective Last 24 Hour Vital Signs Date Time Temp Pulse Resp B/P (MAP) Pulse Ox O2 Delivery O2 Flow Rate FiO2 01/14/18 16:00 98.1 84 19 130/82 96 Nasal Cannula 98.1 01/14/18 12:11 132/72 01/14/18 12:00 81 01/14/18 12:00 97.7 81 19 132/72 98 Nasal Cannula 2.0 97.7 01/14/18 09:55 84 18 Nasal Cannula 2.0 28 01/14/18 09:55 98 Nasal Cannula 2.0 28 01/14/18 09:55 Nasal Cannula 2.0 28 01/14/18 08:00 83 01/14/18 08:00 97.7 81 20 139/68 97 Nasal Cannula 2.0 97.7 01/14/18 06:19 120/57 01/14/18 04:00 69 01/14/18 04:00 98.1 76 20 133/65 92 Nasal Cannula 2.0 98.1 01/14/18 00:00 80 01/14/18 00:00 120/57 01/14/18 00:00 98.2 79 20 120/57 96 Nasal Cannula 2.0 98.2 01/13/18 20:00 98.2 72 20 111/58 99 Nasal Cannula 2.0 98.2 01/13/18 20:00 79 01/13/18 19:29 Nasal Cannula 2.0 28 01/13/18 19:29 99 Nasal Cannula 2.0 28 01/13/18 19:27 88 18 Nasal Cannula 2.0 28 01/13/18 17:03 154/91 01/13/18 16:52 97.5 92 18 154/91 99 Nasal Cannula 2.0 97.5 Intake and Output 01/13/18 01/14/18 19:00 07:00 Intake Total 625 ml 115 ml Balance 625 ml 115 ml Intake Oral 0 ml Free Water 100 ml 50 ml Tube Feeding 525 ml 65 ml # Voids 5 5 Laboratory Tests 01/14/18 10:20: White Blood Count 5.0, Red Blood Count 3.36L, Hemoglobin 10.7L, Hematocrit 34.0L , Mean Corpuscular Volume 101H, Mean Corpuscular Hemoglobin 31.7H, Mean Corpuscular Hemoglobin Concent 31.3L, Red Cell Distribution Width 14.8, Platelet Count 200, Mean Platelet Volume 7.5, Neutrophils (%) (Auto) 67.4, Lymphocytes (%) (Auto) 21.8, Monocytes (%) (Auto) 8.1, Eosinophils (%) (Auto) 1.3, Basophils (%) (Auto) 1.4, Sodium Level 146H, Potassium Level 3.5, Chloride Level 105, Carbon Dioxide Level 39H, Anion Gap 2L, Blood Urea Nitrogen 20H, Creatinine 0.5L, Estimat Glomerular Filtration Rate , Glucose Level 114H, Calcium Level 8.7, Total Bilirubin 0.2, Aspartate Amino Transf (AST/SGOT) 11L, Alanine Aminotransferase (ALT/SGPT) < 6L, Alkaline Phosphatase 61, Total Protein 8.2, Albumin 2.3L, Globulin 5.9, Albumin/Globulin Ratio 0.4L Height (Feet): 5 Height (Inches): 4.00 Weight (Pounds): 200 NAS SCHUMACHER Jan 14, 2018 17:01
--- NOTE | 2018-01-14 18:29 | Consultation ---
DATE OF CONSULTATION: 01/14/2018 This consult is for coverage of Dr. Mo. PRIMARY ATTENDING PHYSICIAN: Caden Recio M.D. REASON FOR CONSULTATION: Urinary tract infection. HISTORY OF PRESENT ILLNESS: This is a 72-year-old female admitted on December, from sn[facility] facility. The primary reason for admission was increase in leg swelling. It was noticed the patient has pyuria and UTI. PAST MEDICAL HISTORY: Significant for multiple sclerosis with functional quadriplegia, dysphagia status post G-tube placement, has chronic DVT, seizure disorder, hypothyroidism, paroxysmal atrial fibrillation. ALLERGIES: Has multiple drug allergies including ceftriaxone, penicillin, sulfa drugs, and tazobactam. MEDICATIONS: Colace, azethreonam, valproic acid, lacosamide, vitamin C, Pepcid, Prevacid, rivaroxaban, Lasix, Tylenol, levothyroxine, hydralazine, albuterol, Atrovent, milk of magnesia, and metoclopramide. SOCIAL HISTORY: Single. assisted resident. No other history obtainable by the patient. PHYSICAL EXAMINATION: VITAL SIGNS: Temperature 97.7, pulse 84, blood pressure 120/57. Afebrile since admission. GENERAL APPEARANCE: Seems no acute distress. HEENT: Head and neck, has a NG tube placement. [place] conjunctivae. HEART: Regular. Normal rate. LUNGS: clear. ABDOMEN: Soft. G-tube in place but feeding is on hold. EXTREMITY: She have edema of the legs. SKIN: She has erythema in buttock area and shallow ulcer in the right foot likely the place of superficial blisters. LABORATORY DATA: WBC 5000, hemoglobin 10.7, hematocrit 34, platelet 200. Sodium 146, potassium 3.5, chloride 105, bicarb 39, BUN 20, creatinine 0.5. VRE screen is positive. Urine culture grew gram-negative rods and Strep species, So far Blood culture x2 are negative. MRSA screen negative. Chest x-ray showed atelectasis. Venous duplex of lower extremity showed chronic DVT. IMPRESSION: 1. Pyuria with urinary tract infection. 2. Second right foot ulcer likely cellulitis. 3. Multiple drug allergies. 4. VRE colonization. 5. Multiple sclerosis. 6. Functional quadriplegia. 7. Hypothyroidism. 8. Chronic DVT. 9. seizure disorder. RECOMMENDATION: We will continue with Azactam. We will add IV vancomycin. We will follow up the cultures. At the end of my exam, I thank Dr. Recio, for involving me in the care of this patient. Adria Castorena M.D. DR: Devaughn JOB#: [id number] CC: ANA PAULA
[2018-01-14 20:00] VITALS: BP 138/66
[2018-01-15] VITALS: BP 127/63
[2018-01-15] MEDS: Aztreonam Inj 1 GM in D5W 55 ML IVPB SCH ×2 (00:43→10:23)
[2018-01-15] MEDS: HydrALAZINE 10mg Tab GT SCH ×4 (00:48→18:53)
[2018-01-15 04:00] VITALS: BP 135/74
[2018-01-15] MEDS: Metoclopramide 10mg/10ml Liq GT SCH (06:15)
[2018-01-15 08:00] VITALS: BP 138/99
--- NOTE | 2018-01-15 08:07 | General Progress Note ---
Assessment/Plan Problem List: (1) Paroxysmal atrial fibrillation with rapid ventricular response ICD Codes: I48.0 - Paroxysmal atrial fibrillation SNOMED: 763392721, 699277004316513 (2) UTI (urinary tract infection) ICD Codes: N39.0 - Urinary tract infection, site not specified SNOMED: 56054121 (3) Infection due to drug-resistant organism ICD Codes: Z16.30 - Resistance to unspecified antimicrobial drugs SNOMED: 678229244 (4) Chronic deep vein thrombosis (DVT) ICD Codes: I82.509 - Chronic embolism and thrombosis of unspecified deep veins of unspecified lower extremity SNOMED: 05601094888805230 (5) Seizure disorder ICD Codes: G40.909 - Epilepsy, unspecified, not intractable, without status epilepticus SNOMED: 772063559 Status: stable, progressing Assessment/Plan iv abx follow up cultures tube feeds id eval sz rx monitor labs bowel regime dc planning Subjective ROS Limited/Unobtainable: Yes Constitutional: Reports: malaise, weakness HEENT: Reports: no symptoms Cardiovascular: Reports: no symptoms Respiratory: Reports: no symptoms Gastrointestinal/Abdominal: Reports: difficulty swallowing Genitourinary: Reports: no symptoms Neurologic/Psychiatric: Reports: seizure Endocrine: Reports: no symptoms Hematologic/Lymphatic: Reports: no symptoms Allergies: Coded Allergies: CEFTRIAXONE (Verified Allergy, Unknown, 03/31/17) PENICILLINS (Verified Allergy, Unknown, 03/31/17) SULFA (SULFONAMIDE ANTIBIOTICS) (Verified Allergy, Unknown, 03/31/17) TAZOBACTAM (Verified Allergy, Unknown, 03/31/17) All Systems: reviewed and negative except above Subjective confused at baseline. on iv abx. gt replaced but residuals high,. no bm recently. no szs Objective Last 24 Hour Vital Signs Date Time Temp Pulse Resp B/P (MAP) Pulse Ox O2 Delivery O2 Flow Rate FiO2 01/15/18 06:16 135/74 01/15/18 04:00 97.9 62 18 135/74 96 Nasal Cannula 2.0 97.9 01/15/18 03:43 88 01/15/18 00:48 127/63 01/15/18 00:00 98.2 73 20 127/63 96 Nasal Cannula 2.0 98.2 01/14/18 23:50 70 01/14/18 20:00 97.9 88 20 138/66 96 Nasal Cannula 2.0 97.9 01/14/18 19:55 84 01/14/18 19:00 97 Nasal Cannula 2.0 28 01/14/18 19:00 Nasal Cannula 2.0 28 01/14/18 19:00 82 18 Nasal Cannula 2.0 28 01/14/18 17:30 126/72 01/14/18 16:00 98.1 84 19 130/82 96 Nasal Cannula 2.0 98.1 01/14/18 16:00 98.1 84 19 130/82 96 Nasal Cannula 98.1 01/14/18 16:00 83 01/14/18 12:11 132/72 01/14/18 12:00 81 01/14/18 12:00 97.7 81 19 132/72 98 Nasal Cannula 2.0 97.7 01/14/18 09:55 84 18 Nasal Cannula 2.0 28 01/14/18 09:55 98 Nasal Cannula 2.0 28 01/14/18 09:55 Nasal Cannula 2.0 28 Intake and Output 01/14/18 01/15/18 19:00 07:00 Intake Total 415.000 ml 520 ml Output Total 0 ml Balance 415.000 ml 520 ml IV Total 415.000 ml 110 ml Tube Feeding 410 ml Output Stool Total 0 ml # Voids 2 Laboratory Tests 01/14/18 10:20: White Blood Count 5.0, Red Blood Count 3.36L, Hemoglobin 10.7L, Hematocrit 34.0L , Mean Corpuscular Volume 101H, Mean Corpuscular Hemoglobin 31.7H, Mean Corpuscular Hemoglobin Concent 31.3L, Red Cell Distribution Width 14.8, Platelet Count 200, Mean Platelet Volume 7.5, Neutrophils (%) (Auto) 67.4, Lymphocytes (%) (Auto) 21.8, Monocytes (%) (Auto) 8.1, Eosinophils (%) (Auto) 1.3, Basophils (%) (Auto) 1.4, Sodium Level 146H, Potassium Level 3.5, Chloride Level 105, Carbon Dioxide Level 39H, Anion Gap 2L, Blood Urea Nitrogen 20H, Creatinine 0.5L, Estimat Glomerular Filtration Rate , Glucose Level 114H, Calcium Level 8.7, Total Bilirubin 0.2, Aspartate Amino Transf (AST/SGOT) 11L, Alanine Aminotransferase (ALT/SGPT) < 6L, Alkaline Phosphatase 61, Total Protein 8.2, Albumin 2.3L, Globulin 5.9, Albumin/Globulin Ratio 0.4L Height (Feet): 5 Height (Inches): 4.00 Weight (Pounds): 200 Objective General Appearance: WD/WN, lethargic, confused Neck: supple Cardiovascular: normal rate, regular rhythm Respiratory/Chest: chest wall non-tender, lungs clear, normal breath sounds Abdomen: normal bowel sounds, non tender, soft, no organomegaly Edema: no edema noted Arm (L), no edema noted Arm (R), no edema noted Leg (L), no edema noted Leg (R), no edema noted Pedal (L), no edema noted Pedal (R), no edema noted Generalized Neurologic: disoriented, unresponsive, aphasia BREANNE SORIA Jan 15, 2018 08:07
[2018-01-15] MEDS ORDERED: Milk of Magnesia 30ml Ud ORAL PRN (08:15)
--- NOTE | 2018-01-15 08:17 | General Progress Note ---
Assessment/Plan Problem List: (1) Anemia ICD Codes: D64.9 - Anemia, unspecified SNOMED: 680535082 (2) G tube feedings ICD Codes: Z93.1 - Gastrostomy status SNOMED: 219300811, 516918062 (3) Seizure disorder ICD Codes: G40.909 - Epilepsy, unspecified, not intractable, without status epilepticus SNOMED: 410714311 (4) Paroxysmal atrial fibrillation with rapid ventricular response ICD Codes: I48.0 - Paroxysmal atrial fibrillation SNOMED: 874422075, 746525156316080 Assessment/Plan elevated residuals consider adding reglan tomorrow if needed anemia work up fu labs Subjective ROS Limited/Unobtainable: No Allergies: Coded Allergies: CEFTRIAXONE (Verified Allergy, Unknown, 03/31/17) PENICILLINS (Verified Allergy, Unknown, 03/31/17) SULFA (SULFONAMIDE ANTIBIOTICS) (Verified Allergy, Unknown, 03/31/17) TAZOBACTAM (Verified Allergy, Unknown, 03/31/17) Objective Last 24 Hour Vital Signs Date Time Temp Pulse Resp B/P (MAP) Pulse Ox O2 Delivery O2 Flow Rate FiO2 01/15/18 06:16 135/74 01/15/18 04:00 97.9 62 18 135/74 96 Nasal Cannula 2.0 97.9 01/15/18 03:43 88 01/15/18 00:48 127/63 01/15/18 00:00 98.2 73 20 127/63 96 Nasal Cannula 2.0 98.2 01/14/18 23:50 70 01/14/18 20:00 97.9 88 20 138/66 96 Nasal Cannula 2.0 97.9 01/14/18 19:55 84 01/14/18 19:00 97 Nasal Cannula 2.0 28 01/14/18 19:00 Nasal Cannula 2.0 28 01/14/18 19:00 82 18 Nasal Cannula 2.0 28 01/14/18 17:30 126/72 01/14/18 16:00 98.1 84 19 130/82 96 Nasal Cannula 2.0 98.1 01/14/18 16:00 98.1 84 19 130/82 96 Nasal Cannula 98.1 01/14/18 16:00 83 01/14/18 12:11 132/72 3/30/18 12:00 81 01/14/18 12:00 97.7 81 19 132/72 98 Nasal Cannula 2.0 97.7 01/14/18 09:55 84 18 Nasal Cannula 2.0 28 01/14/18 09:55 98 Nasal Cannula 2.0 28 01/14/18 09:55 Nasal Cannula 2.0 28 Intake and Output 01/14/18 01/15/18 19:00 07:00 Intake Total 415.000 ml 520 ml Output Total 0 ml Balance 415.000 ml 520 ml IV Total 415.000 ml 110 ml Tube Feeding 410 ml Output Stool Total 0 ml # Voids 2 Laboratory Tests 01/14/18 10:20: White Blood Count 5.0, Red Blood Count 3.36L, Hemoglobin 10.7L, Hematocrit 34.0L , Mean Corpuscular Volume 101H, Mean Corpuscular Hemoglobin 31.7H, Mean Corpuscular Hemoglobin Concent 31.3L, Red Cell Distribution Width 14.8, Platelet Count 200, Mean Platelet Volume 7.5, Neutrophils (%) (Auto) 67.4, Lymphocytes (%) (Auto) 21.8, Monocytes (%) (Auto) 8.1, Eosinophils (%) (Auto) 1.3, Basophils (%) (Auto) 1.4, Sodium Level 146H, Potassium Level 3.5, Chloride Level 105, Carbon Dioxide Level 39H, Anion Gap 2L, Blood Urea Nitrogen 20H, Creatinine 0.5L, Estimat Glomerular Filtration Rate , Glucose Level 114H, Calcium Level 8.7, Total Bilirubin 0.2, Aspartate Amino Transf (AST/SGOT) 11L, Alanine Aminotransferase (ALT/SGPT) < 6L, Alkaline Phosphatase 61, Total Protein 8.2, Albumin 2.3L, Globulin 5.9, Albumin/Globulin Ratio 0.4L Height (Feet): 5 Height (Inches): 4.00 Weight (Pounds): 200 General Appearance: no apparent distress EENT: normal ENT inspection Neck: supple Cardiovascular: normal rate Respiratory/Chest: decreased breath sounds Abdomen: normal bowel sounds, non tender, soft Extremities: non-tender RONALD TATUM Jan 15, 2018 08:17
[2018-01-15] MEDS: Ascorbic Acid 500mg tab GT SCH ×2 (10:11→18:53)
[2018-01-15] MEDS: Docusate 100mg/10ml Liq NG SCH ×2 (10:12→18:53)
[2018-01-15] MEDS: Valproic Acid 250mg/5ml Liquid NG SCH ×2 (10:13→21:23)
[2018-01-15] MEDS: Xarelto 10mg tab GT SCH (10:13)
[2018-01-15] MEDS: Lacosamide 50mg tablet ORAL SCH ×2 (10:14→21:22)
--- NOTE | 2018-01-15 11:57 | Infectious Diseases Prog Note ---
Assessment/Plan Assessment/Plan antibiotics : vancomycin iv, aztreonam A 1. VRE UTI 2. pseudomonas pneumonia 3. multiple sclerosis 4. quadriplegia 5. seizures P 1. d/c vancomycin iv, aztreonam 2. start linezolid, inhaled amikacin 3. will follow up cultures Subjective ROS Limited/Unobtainable: Yes Allergies: Coded Allergies: CEFTRIAXONE (Verified Allergy, Unknown, 03/31/17) PENICILLINS (Verified Allergy, Unknown, 03/31/17) SULFA (SULFONAMIDE ANTIBIOTICS) (Verified Allergy, Unknown, 03/31/17) TAZOBACTAM (Verified Allergy, Unknown, 03/31/17) Objective Vital Signs Last 24 Hour Vital Signs Date Time Temp Pulse Resp B/P (MAP) Pulse Ox O2 Delivery O2 Flow Rate FiO2 01/15/18 08:15 77 20 Nasal Cannula 2.0 28 01/15/18 08:15 Nasal Cannula 2.0 28 01/15/18 08:15 94 Nasal Cannula 2.0 28 01/15/18 08:00 97.5 82 19 138/99 Room Air 2.0 97.5 01/15/18 08:00 87 01/15/18 06:16 135/74 01/15/18 04:00 97.9 62 18 135/74 96 Nasal Cannula 2.0 97.9 01/15/18 03:43 88 01/15/18 00:48 127/63 01/15/18 00:00 98.2 73 20 127/63 96 Nasal Cannula 2.0 98.2 01/14/18 23:50 70 01/14/18 20:00 97.9 88 20 138/66 96 Nasal Cannula 2.0 97.9 01/14/18 19:55 84 01/14/18 19:00 97 Nasal Cannula 2.0 28 01/14/18 19:00 Nasal Cannula 2.0 28 01/14/18 19:00 82 18 Nasal Cannula 2.0 28 01/14/18 17:30 126/72 01/14/18 16:00 98.1 84 19 130/82 96 Nasal Cannula 2.0 98.1 01/14/18 16:00 98.1 84 19 130/82 96 Nasal Cannula 98.1 01/14/18 16:00 83 01/14/18 12:11 132/72 01/14/18 12:00 81 01/14/18 12:00 97.7 81 19 132/72 98 Nasal Cannula 2.0 97.7 Height (Feet): 5 Height (Inches): 4.00 Weight (Pounds): 200 Respiratory/Chest: lungs clear Cardiovascular: normal rate, regular rhythm, no gallop/murmur Abdomen: soft, non tender, other - GT Extremities: other - + edema KAMRAN GUTIERREZ Jan 15, 2018 11:57
[2018-01-15 12:00] VITALS: BP 130/73
[2018-01-15] MEDS ORDERED: Amikacin for Inhalation 2ML INH SCH ×2 (13:00→22:00)
[2018-01-15] MEDS ORDERED: Vancomycin 1gm in D5W 275ml IVPB SCH (14:00)
[2018-01-15 16:00] VITALS: BP 129/70
[2018-01-15 20:00] VITALS: BP 124/64
[2018-01-16] VITALS: BP 124/61
[2018-01-16] MEDS: HydrALAZINE 10mg Tab GT SCH ×4 (00:03→18:00)
[2018-01-16 04:00] VITALS: BP 132/68
[2018-01-16 08:00] VITALS: BP 133/70
--- NOTE | 2018-01-16 08:22 | General Progress Note ---
Assessment/Plan Problem List: (1) Anemia ICD Codes: D64.9 - Anemia, unspecified SNOMED: 495660351 (2) G tube feedings ICD Codes: Z93.1 - Gastrostomy status SNOMED: 422504901, 945843369 (3) Seizure disorder ICD Codes: G40.909 - Epilepsy, unspecified, not intractable, without status epilepticus SNOMED: 572073913 (4) Paroxysmal atrial fibrillation with rapid ventricular response ICD Codes: I48.0 - Paroxysmal atrial fibrillation SNOMED: 494006199, 773747653479511 Assessment/Plan tolerating GTf at 65 cc anemia work up fu labs Subjective ROS Limited/Unobtainable: No Allergies: Coded Allergies: CEFTRIAXONE (Verified Allergy, Unknown, 03/31/17) PENICILLINS (Verified Allergy, Unknown, 03/31/17) SULFA (SULFONAMIDE ANTIBIOTICS) (Verified Allergy, Unknown, 03/31/17) TAZOBACTAM (Verified Allergy, Unknown, 03/31/17) Objective Last 24 Hour Vital Signs Date Time Temp Pulse Resp B/P (MAP) Pulse Ox O2 Delivery O2 Flow Rate FiO2 01/16/18 06:36 132/68 01/16/18 04:00 97.0 85 16 132/68 98 Nasal Cannula 2.0 97.0 01/16/18 04:00 81 01/16/18 00:03 124/61 01/16/18 00:00 97.0 83 18 124/61 99 Nasal Cannula 2.0 97.0 01/16/18 00:00 81 01/15/18 22:28 79 18 100 Nasal Cannula 2.0 01/15/18 22:21 100 Nasal Cannula 2.0 28 01/15/18 22:21 Nasal Cannula 2.0 28 01/15/18 22:20 81 18 100 Nasal Cannula 2.0 01/15/18 20:00 90 01/15/18 20:00 97.2 88 18 124/64 99 97.2 01/15/18 18:53 129/70 01/15/18 16:00 97.9 91 21 129/70 98 Nasal Cannula 2.0 97.9 01/15/18 16:00 86 01/15/18 14:01 130/73 01/15/18 12:00 98.2 81 19 130/73 99 Nasal Cannula 2.0 98.2 01/15/18 12:00 98 Intake and Output 01/15/18 01/16/18 19:00 07:00 Output Total 2 ml Balance -2 ml Output Urine Total 2 ml # Voids 3 Height (Feet): 5 Height (Inches): 4.00 Weight (Pounds): 200 General Appearance: no apparent distress EENT: normal ENT inspection Neck: supple Cardiovascular: normal rate Respiratory/Chest: decreased breath sounds Abdomen: normal bowel sounds, non tender, soft Extremities: non-tender RONALD TATUM Jan 16, 2018 08:22
--- NOTE | 2018-01-16 08:57 | Infectious Diseases Prog Note ---
Assessment/Plan Assessment/Plan A 1. VRE & pseudomonas UTI 2. pneumonia 3. multiple sclerosis 4. quadriplegia 5. seizures P 1. d/c inhaled amikacin 2. Continue linezolid, 3. start on IV Gentamicin Subjective ROS Limited/Unobtainable: Yes Allergies: Coded Allergies: CEFTRIAXONE (Verified Allergy, Unknown, 03/31/17) PENICILLINS (Verified Allergy, Unknown, 03/31/17) SULFA (SULFONAMIDE ANTIBIOTICS) (Verified Allergy, Unknown, 03/31/17) TAZOBACTAM (Verified Allergy, Unknown, 03/31/17) Objective Vital Signs Last 24 Hour Vital Signs Date Time Temp Pulse Resp B/P (MAP) Pulse Ox O2 Delivery O2 Flow Rate FiO2 01/16/18 08:36 99 Nasal Cannula 2.0 28 01/16/18 08:36 Nasal Cannula 2.0 28 01/16/18 06:36 132/68 01/16/18 04:00 97.0 85 16 132/68 98 Nasal Cannula 2.0 97.0 01/16/18 04:00 81 01/16/18 00:03 124/61 01/16/18 00:00 97.0 83 18 124/61 99 Nasal Cannula 2.0 97.0 01/16/18 00:00 81 01/15/18 22:28 79 18 100 Nasal Cannula 2.0 01/15/18 22:21 100 Nasal Cannula 2.0 28 01/15/18 22:21 Nasal Cannula 2.0 28 01/15/18 22:20 81 18 100 Nasal Cannula 2.0 01/15/18 20:00 90 01/15/18 20:00 97.2 88 18 124/64 99 97.2 01/15/18 18:53 129/70 01/15/18 16:00 97.9 91 21 129/70 98 Nasal Cannula 2.0 97.9 01/15/18 16:00 86 01/15/18 14:01 130/73 01/15/18 12:00 98.2 81 19 130/73 99 Nasal Cannula 2.0 98.2 01/15/18 12:00 98 Height (Feet): 5 Height (Inches): 4.00 Weight (Pounds): 200 General Appearance: no acute distress HEENT: mucous membranes moist Respiratory/Chest: lungs clear Cardiovascular: normal rate Abdomen: soft, non tender, other - GT feeding Extremities: other - edema Skin: ulcers Neurologic/Psychiatric: aphasia Current Medications Medications (Trade) Dose Ordered Sig/Reji Route PRN Reason Start Time Stop Time Status Last Admin Dose Admin Acetaminophen (Tylenol) 650 mg Q4H PRN ORAL Mild Pain/Temp > 100.5 01/12/18 06:45 02/10/18 21:59 Albuterol Sulfate (Proventil) 2.5 mg Q6H PRN HHN Shortness of Breath 01/11/18 22:00 01/16/18 21:59 Amikacin Sulfate (Amikin) 500 mg Q12HRT INH 01/15/18 22:00 01/22/18 21:59 01/15/18 22:16 Ascorbic Acid (Vitamin C) 500 mg BID GT 01/12/18 09:00 02/11/18 08:59 01/15/18 18:53 Bisacodyl (Dulcolax) 10 mg DAILYPRN PRN RECTAL Persistent Constipation 01/15/18 08:15 02/14/18 08:14 Docusate Sodium (Colace) 100 mg TWICE A DAY NG 01/13/18 18:00 02/12/18 17:59 01/15/18 18:53 Famotidine (Pepcid) 20 mg DAILY GT 01/12/18 09:00 02/11/18 08:59 01/15/18 10:21 Furosemide (Lasix) 40 mg DAILY IV 01/12/18 09:00 02/11/18 08:59 01/15/18 10:34 Hydralazine HCl (Apresoline) 10 mg EVERY 6 HOURS GT 01/12/18 00:00 02/11/18 00:00 01/16/18 06:36 Ipratropium Chilo (Atrovent) 500 mcg Q6H PRN HHN Shortness of Breath 01/11/18 22:00 01/16/18 21:59 Lacosamide (Vimpat) 50 mg Q12HR ORAL 01/12/18 21:00 02/11/18 08:59 01/15/18 21:22 Lansoprazole (Prevacid) 30 mg DAILY GT 01/12/18 09:00 02/11/18 08:59 01/15/18 10:13 Levothyroxine Sodium (Synthroid) 100 mcg ACBREAKFAST GT 01/12/18 06:30 02/11/18 06:29 01/16/18 06:36 Linezolid (Zyvox) 600 mg EVERY 12 HOURS ORAL 01/15/18 13:00 01/20/18 12:59 01/15/18 21:22 Magnesium Hydroxide (Mom) 30 ml TIDPRN PRN GT Constipation 01/11/18 22:00 02/10/18 21:59 Rivaroxaban (Xarelto) 20 mg DAILY GT 01/12/18 09:00 02/11/18 08:59 01/15/18 10:13 Valproic Acid (Depakene) 1,000 mg EVERY 12 HOURS NG 01/12/18 22:00 02/11/18 21:59 01/15/18 21:23 PARDEEP IRVING Jan 16, 2018 08:57
[2018-01-16] MEDS ORDERED: Gentamicin Rx monitoring MISC PRN (09:00)
[2018-01-16] MEDS: Xarelto 10mg tab GT SCH (09:21)
[2018-01-16] MEDS: Ascorbic Acid 500mg tab GT SCH ×2 (09:22→19:12)
[2018-01-16] MEDS: Lacosamide 50mg tablet ORAL SCH ×2 (09:22→21:47)
[2018-01-16] MEDS: Docusate 100mg/10ml Liq NG SCH ×2 (09:23→19:12)
[2018-01-16] MEDS: Valproic Acid 250mg/5ml Liquid NG SCH ×2 (09:24→21:47)
[2018-01-16 09:28] LABS: EOSINOPHILS % (AUTO) 1.8 % (0.0-3.0); HEMOGLOBIN 11.7 G/DL (12.0-16.0); LYMPHOCYTES % (AUTO) 31.9 % (20.0-45.0); MEAN CORPUSCULAR VOLUME 102 FL (80-99); MONOCYTES % (AUTO) 8.7 % (1.0-10.0); NEUTROPHILS % (AUTO) 56.6 % (45.0-75.0); PLATELET COUNT 237 K/UL (150-450); RED BLOOD COUNT 3.65 M/UL (4.20-5.40); RED CELL DISTRIBUTION WIDTH 15.1 % (11.6-14.8)
[2018-01-16 10:18] LABS: % IRON SATURATION 25 % (15-50); IRON 49 ug/dL (50-175); TOTAL IRON BINDING CAPACITY 197 ug/dL (250-450)
[2018-01-16] MEDS ORDERED: Sterile Water Irrig 1000ml IRRIG ONE (10:24)
[2018-01-16 12:00] VITALS: BP 130/66
--- NOTE | 2018-01-16 13:53 | Wound Care Consultation ---
Wound Assessment Wound Assessment : Wound Number: 1 Wound Present on Admission: Yes New Wound: No Status Change of Wound: No Wound Location Body Site Modif: right, dorsal Wound Location Body Site: foot Wound Type: lesion-etiology unknown - two sites Anya Test: Does not Anya Wound Thickness: Full Thickness Wound Length: 3.5 Wound Width: 3.0 Wound Depth: 0.2 Percent of Wound [place]/Red: 70 Percent of Wound Bed Yellow/Wh: 30 Wound Drainage Description: Serosanguineous Wound Drainage Amount: Moderate Wound Drainage Odor: None/Absent Tissue Surrounding Wound: Erythemic Wound General Appearance: Reddened, Draining Wound Comment #1 Right Dorsal foot two open wound sites etiology unknown Recommendation -Local wound care per protocol -Keep clean and dry -Offload both heels -Heel protector on both heels -Low air loss mattress -Assess and f/u accordingly for any changes MICHELLE RAPP RN Jan 16, 2018 13:53
[2018-01-16] MEDS: Gentamicin inj 400 MG in NS 110 ML IVPB SCH (15:35)
[2018-01-16 16:00] VITALS: BP 122/72
[2018-01-16] MEDS ORDERED: Fleet's Mineral Oil Enema RECTAL ONE (16:30)
[2018-01-16 16:52] LABS: ALANINE AMINOTRANSFERASE 6 U/L (12-78); ALBUMIN 2.4 G/DL (3.4-5.0); ALBUMIN/GLOBULIN RATIO 0.4 (1.0-2.7); ALKALINE PHOSPHATASE 66 U/L (46-116); ANION GAP 8 mmol/L (5-15); ASPARTATE AMINO TRANSFERASE 30 U/L (15-37); BILIRUBIN,TOTAL 0.1 MG/DL (0.2-1.0); BLOOD UREA NITROGEN 25 mg/dL (7-18); CARBON DIOXIDE 34 MMOL/L (21-32); CHLORIDE 105 MMOL/L (98-107); CREATININE 0.5 MG/DL (0.55-1.30); POTASSIUM 4.2 MMOL/L (3.5-5.1); SODIUM 147 MMOL/L (136-145)
[2018-01-16 20:00] VITALS: BP 117/54
[2018-01-17] VITALS: BP 140/59
[2018-01-17] MEDS: HydrALAZINE 10mg Tab GT SCH ×4 (00:09→17:26)
[2018-01-17 04:00] VITALS: BP 130/57
[2018-01-17 08:00] VITALS: BP 127/73
--- NOTE | 2018-01-17 08:00 | Progress Note ---
DATE: 01/15/2018 CARDIOLOGY PROGRESS NOTE SUBJECTIVE: Status post G-tube replacement. Still with high residuals. Still no bowel movement. Baseline confusion. No vomiting episodes. OBJECTIVE: VITAL SIGNS: Blood pressure 135/74, pulse 62, and respirations 18. LUNGS: Diminished breath sounds. No wheezing. HEART: Irregularly irregular rhythm. Normal S1, S2. ABDOMEN: Soft. EXTREMITIES: A 1+ dependent edema. LABORATORY DATA: No new laboratories. IMPRESSION: 1. Seizure disorder. 2. Chronic encephalopathy. 3. Chronic deep venous thrombosis. 4. Urinary tract infection. 5. Paroxysmal atrial fibrillation. 6. Acute on chronic diastolic congestive heart failure. 7. Dehydration . 8. Dysphagia with gastrostomy tube, status post replacement. PLAN: G-tube feedings. Bowel regimen. Antimicrobials. Adjust diuretics. Maintain adequate free water replacement. Titrate cardiovascular regimen. Continue full anticoagulation. Nick Gilbert M.D. DR: MEE JOB#: [id number] CC:
--- NOTE | 2018-01-17 08:15 | Consultation ---
DATE OF CONSULTATION: 01/12/2018 GASTROENTEROLOGY CONSULTATION CONSULTING PHYSICIAN: Aaron Tena M.D. CHIEF COMPLAINT: I was asked to see patient by Dr. Caden Recio for evaluation of gastrostomy complications. HISTORY OF PRESENT ILLNESS: The patient is an unfortunate 72-year-old white woman, who is a long-term care resident with contracture deformities and dysphagia who has undergone a gastrostomy tube in the past. The gastrostomy tube fell out, and therefore, this consultation was generated. It was temporarily replaced with a 24-Montenegrin De Leon catheter. Feeding has been held and nasogastric tube has been placed. The patient herself was unable to provide any history. Most of the information is available from the chart. PAST MEDICAL HISTORY: History of developmental delay; seizure disorder; congestive heart failure; dysphagia, status post gastrostomy tube placement; contracture deformities; bedbound state; and anemia. MEDICATIONS: See the chart list for details. ALLERGIES: Ceftriaxone, penicillin, sulfa, and tazobactam. SOCIAL HISTORY: The patient has had no history of smoking or drinking. FAMILY HISTORY: Unavailable. REVIEW OF SYSTEMS: Otherwise unobtainable. PHYSICAL EXAMINATION: GENERAL: A debilitated white woman, seen in her room. HEENT: Normocephalic and atraumatic. The patient was restless and moving. Nasogastric tube is in place. NECK: Somewhat stiff and the patient was restless. CHEST: Revealed coarse breath sounds. CARDIOVASCULAR: Regular rate. ABDOMEN: Soft, but distended. The patient has a De Leon inside the gastrostomy site and there was a mild amount of leak around it. The De Leon catheter balloon was not distended. EXTREMITIES: Revealed contracture deformities. NEUROLOGICAL: Notable for spontaneous movement in all four extremities, but otherwise, these were not purposeful. LABORATORY DATA: Noted. The patient has urinary tract infection. ASSESSMENT: This patient presents with chronic medical ailments, but at this time, she has urinary tract infection, which is being treated. The patient's gastrostomy tube has now been replaced with a 24-Montenegrin De Leon catheter and there is still an enlarged ostomy around the gastrostomy site. Dislodgement of gastrostomy site is typically because of increased abdominal pressure with breathing seen in this patient. With the excessive abdominal pressures, there is a gradient causing constant flow of gastric juices around the feeding catheter, thus resulting in gradual enlargement. This problem is hard to repair and at times results in need for G-tube abandonment than replacement. For the time being, I will replace this with a 20 Montenegrin catheter with a balloon and button. This way, perhaps with tightening of button the hole becomes smaller. RECOMMENDATIONS: Per above discussion and per orders written in the chart. Thank you for asking me to participate in the care of this patient. Aaron Tena M.D. DR: Citlalli JOB#: [id number] CC: ANA PAULA
[2018-01-17 08:58] LABS: EOSINOPHILS % (AUTO) 1.5 % (0.0-3.0); HEMATOCRIT 35.9 % (37.0-47.0); HEMOGLOBIN 10.9 G/DL (12.0-16.0); LYMPHOCYTES % (AUTO) 23.7 % (20.0-45.0); MEAN CORPUSCULAR VOLUME 103 FL (80-99); MONOCYTES % (AUTO) 10.5 % (1.0-10.0); NEUTROPHILS % (AUTO) 63.3 % (45.0-75.0); PLATELET COUNT 259 K/UL (150-450); RED BLOOD COUNT 3.49 M/UL (4.20-5.40); RED CELL DISTRIBUTION WIDTH 15.1 % (11.6-14.8); WHITE BLOOD COUNT 4.7 K/UL (4.8-10.8)
[2018-01-17] MEDS: Xarelto 10mg tab GT SCH (09:00)
[2018-01-17] MEDS: Ascorbic Acid 500mg tab GT SCH ×2 (09:53→17:26)
[2018-01-17] MEDS: Docusate 100mg/10ml Liq NG SCH ×2 (09:54→17:26)
[2018-01-17] MEDS: Lacosamide 50mg tablet ORAL SCH ×2 (09:54→21:14)
[2018-01-17] MEDS: Valproic Acid 250mg/5ml Liquid NG SCH ×2 (10:01→21:16)
[2018-01-17 10:08] LABS: ALANINE AMINOTRANSFERASE < 6 U/L (12-78); ALBUMIN 2.5 G/DL (3.4-5.0); ALBUMIN/GLOBULIN RATIO 0.5 (1.0-2.7); ALKALINE PHOSPHATASE 60 U/L (46-116); ANION GAP 2 mmol/L (5-15); ASPARTATE AMINO TRANSFERASE 12 U/L (15-37); BILIRUBIN,TOTAL 0.1 MG/DL (0.2-1.0); BLOOD UREA NITROGEN 24 mg/dL (7-18); CALCIUM 8.7 MG/DL (8.5-10.1); CHLORIDE 102 MMOL/L (98-107); CREATININE 0.4 MG/DL (0.55-1.30); SODIUM 146 MMOL/L (136-145)
[2018-01-17 10:10] LABS: CARBON DIOXIDE 42 MMOL/L (21-32)
[2018-01-17] MEDS ORDERED: Lidocaine 1% Plain 30 ml INJ ONE (11:30)
[2018-01-17] MEDS ORDERED: Heparin 2000 units/Ns 1000ml INJ ONE (11:30)
--- NOTE | 2018-01-17 11:55 | Diagnostic Imaging Report ---
Indication: Abdominal distention Technique: Supine view of the abdomen Comparison: 01/12/2018 Findings: Previously demonstrated nasogastric tube is no longer present. There is now a gastrostomy. Bowel gas pattern is unremarkable. Multiple right renal calculi are again demonstrated Impression: No acute process This agrees with the preliminary interpretation provided overnight by [facility] teleradiology service.
[2018-01-17 12:00] VITALS: BP 131/69
--- NOTE | 2018-01-17 12:23 | Infectious Diseases Prog Note ---
"Assessment/Plan Assessment/Plan antibiotics : linezolid, gentamicin A 1. VRE | pseudomonas UTI 3. multiple sclerosis 4. quadriplegia 5. seizures P 1. continue linezolid 4 more days 2. continue gentamicin iv 1 more day 3. will follow up cultures Subjective ROS Limited/Unobtainable: Yes Allergies: Coded Allergies: CEFTRIAXONE (Verified Allergy, Unknown, 03/31/17) PENICILLINS (Verified Allergy, Unknown, 03/31/17) SULFA (SULFONAMIDE ANTIBIOTICS) (Verified Allergy, Unknown, 03/31/17) TAZOBACTAM (Verified Allergy, Unknown, 03/31/17) Objective Vital Signs Last 24 Hour Vital Signs Date Time Temp Pulse Resp B/P (MAP) Pulse Ox O2 Delivery O2 Flow Rate FiO2 01/17/18 08:00 74 01/17/18 08:00 97.2 73 19 127/73 98 Nasal Cannula 2.0 97.2 01/17/18 06:33 130/57 01/17/18 04:00 77 01/17/18 04:00 95.7 82 20 130/57 98 Nasal Cannula 2.0 95.7 01/17/18 00:09 140/59 01/17/18 00:00 96.8 73 20 140/59 97 Nasal Cannula 2.0 96.8 01/17/18 00:00 66 01/16/18 20:00 96.6 71 19 117/54 95 Nasal Cannula 2.0 96.6 01/16/18 20:00 73 01/16/18 19:42 Nasal Cannula 2.0 28 01/16/18 19:41 96 Nasal Cannula 2.0 28 01/16/18 18:00 122/72 01/16/18 16:00 97.3 69 19 122/72 99 Nasal Cannula 2.0 97.3 01/16/18 16:00 74 01/16/18 15:35 130/66 Height (Feet): 5 Height (Inches): 4.00 Weight (Pounds): 200 Respiratory/Chest: lungs clear Cardiovascular: normal rate, regular rhythm, no gallop/murmur Abdomen: soft, non tender, other - GT Extremities: other - + edema Laboratory Tests Test 01/16/18 23:40 01/17/18 07:45 Gentamicin Level Trough 2.5 ug/mL (0.3-2.0) *H White Blood Count 4.7 K/UL (4.8-10.8) L Red Blood Count 3.49 M/UL (4.20-5.40) L Hemoglobin 10.9 G/DL (12.0-16.0) L Hematocrit 35.9 % (37.0-47.0) L Mean Corpuscular Volume 103 FL (80-99) H Mean Corpuscular Hemoglobin 31.2 PG (27.0-31.0) H Mean Corpuscular Hemoglobin Concent 30.4 G/DL (32.0-36.0) L Red Cell Distribution Width 15.1 % (11.6-14.8) H Platelet Count 259 K/UL (150-450) Mean Platelet Volume 7.6 FL (6.5-10.1) Neutrophils (%) (Auto) 63.3 % (45.0-75.0) Lymphocytes (%) (Auto) 23.7 % (20.0-45.0) Monocytes (%) (Auto) 10.5 % (1.0-10.0) H Eosinophils (%) (Auto) 1.5 % (0.0-3.0) Basophils (%) (Auto) 1.0 % (0.0-2.0) Sodium Level 146 MMOL/L (136-145) H Potassium Level 4.0 MMOL/L (3.5-5.1) Chloride Level 102 MMOL/L (98-107) Carbon Dioxide Level 42 MMOL/L (21-32) *H Anion Gap 2 mmol/L (5-15) L Blood Urea Nitrogen 24 mg/dL (7-18) H Creatinine 0.4 MG/DL (0.55-1.30) L Estimat Glomerular Filtration Rate mL/min (>60) Glucose Level 91 MG/DL (74-106) Calcium Level 8.7 MG/DL (8.5-10.1) Total Bilirubin 0.1 MG/DL (0.2-1.0) L Aspartate Amino Transf (AST/SGOT) 12 U/L (15-37) L Alanine Aminotransferase (ALT/SGPT) < 6 U/L (12-78) L Alkaline Phosphatase 60 U/L (46-116) Pro-B-Type Natriuretic Peptide 159 pg/mL (0-125) H Total Protein 7.7 G/DL (6.4-8.2) Albumin 2.5 G/DL (3.4-5.0) L Globulin 5.2 g/dL Albumin/Globulin Ratio 0.5 (1.0-2.7) L Thyroid Stimulating Hormone (TSH) 0.992 uiU/mL (0.358-3.740) KAMRAN GUTIERREZ Jan 17, 2018 12:23"
--- NOTE | 2018-01-17 13:15 | Progress Note ---
DATE: 01/16/2018 CARDIOLOGY PROGRESS NOTE SUBJECTIVE: The patient continues on tube feeds. No vomiting. No residuals until so far today. OBJECTIVE: VITAL SIGNS: Blood pressure 132/68, pulse 85, and respirations 16. LUNGS: Diminished breath sounds. No wheezing. ABDOMEN: Soft. G-tube intact. HEART: Irregularly irregular rhythm. Normal S1, S2. EXTREMITIES: With dependent edema. LABORATORY DATA: White count 4, hemoglobin 11.7. Iron saturation 25%. BUN 25, creatinine 0.5, potassium 4.2, sodium 147, bicarb 34. Albumin 2.4. IMPRESSION: 1. Status post gastrostomy tube replacement. 2. Borderline hypothyroidism, on replacement therapy. 3. Paroxysmal atrial fibrillation. 4. Dehydration, hyponatremia. 5. Acute on chronic diastolic congestive heart failure. 6. Chronic deep venous thrombosis. 7. Coagulopathy due to rivaroxaban therapy. 8. Urinary tract infection. PLAN: 1. Recheck thyroid function in 4-6 weeks. 2. Free water replacement. 3. Hold diuretics. 4. Continue full anticoagulation. 5. Antibiotics per Infectious Disease road consultant. Nick Gilbert M.D. DR: MEE JOB#: [id number] CC:
[2018-01-17 16:00] VITALS: BP 114/51
--- NOTE | 2018-01-17 16:36 | Diagnostic Imaging Report ---
Indications: Needs long-term IV access Technique: Ultrasound confirms patent compressible right basilic vein. Total sterile technique, including sterile probe cover and sterile gel, hat, mask,, sterile gown, large sterile drape, and preparation with 2% chlorhexidine utilized. Local anesthesia with 1% lidocaine. Under real-time ultrasound guidance, puncture basilic vein using 21-gauge needle, documented and archived, passage 0.018 guidewire under direct fluoroscopy, which was used to determine appropriate catheter length, exchange for 5 Faroese peel-away sheath. 5 Faroese Bard dual-lumen power PICC cut to 30 cm. It was inserted through the peel-away sheath. Peel-away sheath and guidewire removed. Catheter fixed to the skin. Both catheter ports aspirated and flushed. Patient tolerated procedure well, without immediate complication. Digital radiograph documents satisfactory catheter tip position, at the cavoatrial junction. Total fluoroscopy time 0.4 minutes. Total dose area product 21 dGycm2 Impression: Successful placement of right arm PICC under sonographic and fluoroscopic guidance, as described above.
[2018-01-17] MEDS: Gentamicin inj 400 MG in NS 110 ML IVPB SCH (16:55)
[2018-01-17 20:00] VITALS: BP 139/69
[2018-01-17] MEDS: Dyna-Hex 2% Top Sol 2oz TOPIC SCH (21:14)
[2018-01-17] MEDS: Enoxaparin 60mg Inj SUBQ SCH (21:15)
--- NOTE | 2018-01-17 21:57 | General Progress Note ---
Assessment/Plan Assessment/Plan Assessment - GT dislodgement --> 24 FR lynn replaced with 20FR GT catheter - Abdominal breathing with high pressure --> at risk for GT site leak and GT failure - OBS - contractures - UTI - h/o DVT - Poor Px Recommendations - Continue TF - watch for GT site leak - Elevte HOB - GT care Subjective Allergies: Coded Allergies: CEFTRIAXONE (Verified Allergy, Unknown, 03/31/17) PENICILLINS (Verified Allergy, Unknown, 03/31/17) SULFA (SULFONAMIDE ANTIBIOTICS) (Verified Allergy, Unknown, 03/31/17) TAZOBACTAM (Verified Allergy, Unknown, 03/31/17) Subjective confused tolerating TF Objective Last 24 Hour Vital Signs Date Time Temp Pulse Resp B/P (MAP) Pulse Ox O2 Delivery O2 Flow Rate FiO2 01/17/18 18:20 Nasal Cannula 2.0 28 01/17/18 18:20 98 Nasal Cannula 3.0 32 01/17/18 17:26 114/51 01/17/18 16:00 84 01/17/18 16:00 97.7 82 18 114/51 97 Nasal Cannula 2.0 97.7 01/17/18 12:38 131/69 01/17/18 12:00 97.7 72 17 131/69 93 Nasal Cannula 2.0 97.7 01/17/18 12:00 72 01/17/18 08:00 74 01/17/18 08:00 97.2 73 19 127/73 98 Nasal Cannula 2.0 97.2 01/17/18 06:33 130/57 01/17/18 04:00 77 01/17/18 04:00 95.7 82 20 130/57 98 Nasal Cannula 2.0 95.7 01/17/18 00:09 140/59 01/17/18 00:00 96.8 73 20 140/59 97 Nasal Cannula 2.0 96.8 01/17/18 00:00 66 Intake and Output 01/16/18 01/17/18 19:00 07:00 Output Total 1500 ml 425 ml Balance -1500 ml -425 ml Output Urine Total 1500 ml 425 ml # Voids 1 Laboratory Tests 01/16/18 23:40: Gentamicin Level Trough 2.5*H 01/17/18 07:45: White Blood Count 4.7L, Red Blood Count 3.49L, Hemoglobin 10.9L, Hematocrit 35.9L, Mean Corpuscular Volume 103H, Mean Corpuscular Hemoglobin 31.2H, Mean Corpuscular Hemoglobin Concent 30.4L, Red Cell Distribution Width 15.1H, Platelet Count 259, Mean Platelet Volume 7.6, Neutrophils (%) (Auto) 63.3, Lymphocytes (%) (Auto) 23.7, Monocytes (%) (Auto) 10.5H, Eosinophils (%) (Auto) 1.5, Basophils (%) (Auto) 1.0, Sodium Level 146H, Potassium Level 4.0, Chloride Level 102, Carbon Dioxide Level 42*H, Anion Gap 2L, Blood Urea Nitrogen 24H, Creatinine 0.4L, Estimat Glomerular Filtration Rate , Glucose Level 91, Calcium Level 8.7, Total Bilirubin 0.1L, Aspartate Amino Transf (AST/SGOT) 12L, Alanine Aminotransferase (ALT/SGPT) < 6L, Alkaline Phosphatase 60, Pro-B-Type Natriuretic Peptide 159H, Total Protein 7.7, Albumin 2.5L, Globulin 5.2, Albumin /Globulin Ratio 0.5L, Thyroid Stimulating Hormone (TSH) 0.992 Height (Feet): 5 Height (Inches): 4.00 Weight (Pounds): 200 Objective Debilitated WW non purposeful movements NCAT stiff neck/extremities CTA RRR Soft ND abd, (+) GT , minimal leak no edema OBS NAS SCHUMACHER Jan 17, 2018 21:57
[2018-01-18] VITALS: BP 147/62
[2018-01-18] MEDS: HydrALAZINE 10mg Tab GT SCH ×4 (00:55→17:54)
[2018-01-18 04:00] VITALS: BP 150/68
--- NOTE | 2018-01-18 04:00 | Progress Note ---
DATE: 01/17/2018 CARDIOLOGY AND MEDICINE PROGRESS NOTE SUBJECTIVE: The patient is tolerating feedings by G-tube. She remains confused. She is in no respiratory distress. Diuretics have been on hold for the past two days. OBJECTIVE: VITAL SIGNS: Blood pressure 114/51, pulse 84, respirations 18, and afebrile. LUNGS: Diminished breath sounds. HEART: Regular rhythm and rate. Normal S1, S2 with a 1/6 systolic murmur. ABDOMEN: Distended, but soft. EXTREMITIES: With dependent edema. LABORATORY DATA: White count 4.7 and hemoglobin 10.9. Sodium 146, potassium 4, bicarb 42, BUN 24, and creatinine 0.4. Albumin 2.5. IMPRESSION: 1. Dysphagia with G-tube status post replacement. 2. Dehydration. 3. Hypernatremia. 4. Chronic diastolic congestive heart failure. 5. Prerenal azotemia. 6. Metabolic alkalosis due to contraction. 7. Severe protein-calorie malnutrition. 8. Polymicrobial urinary tract infection with Pseudomonas and vancomycin-resistant enterococcus. 9. Multiple sclerosis with quadriplegia. PLAN: 1. Antibiotics per Infectious Disease business solutions consultant with aspiration precautions and observation for G-tube residuals. 2. Continue to hydrate with hypotonic IV fluids. 3. Full anticoagulation with rivaroxaban once no additional procedures are planned. Nick Gilbert M.D. DR: DEMARCUS JOB#: [id number] CC:
[2018-01-18 08:00] VITALS: BP 140/92
[2018-01-18] MEDS: Valproic Acid 250mg/5ml Liquid NG SCH ×2 (08:54→22:46)
[2018-01-18] MEDS: Docusate 100mg/10ml Liq NG SCH ×2 (08:54→17:54)
[2018-01-18] MEDS: Ascorbic Acid 500mg tab GT SCH ×2 (08:56→17:54)
[2018-01-18] MEDS: Enoxaparin 60mg Inj SUBQ SCH (08:56)
[2018-01-18] MEDS: Lacosamide 50mg tablet ORAL SCH ×2 (09:37→22:46)
[2018-01-18 11:36] LABS: ANION GAP 1 mmol/L (5-15); BLOOD UREA NITROGEN 20 mg/dL (7-18); CALCIUM 8.7 MG/DL (8.5-10.1); CARBON DIOXIDE 40 MMOL/L (21-32); CHLORIDE 101 MMOL/L (98-107); CREATININE 0.4 MG/DL (0.55-1.30); POTASSIUM 3.4 MMOL/L (3.5-5.1); SODIUM 142 MMOL/L (136-145)
[2018-01-18 12:00] VITALS: BP 141/66
[2018-01-18] MEDS ORDERED: D5W IVPB SCH (12:00)
[2018-01-18] MEDS ORDERED: GENTAMICIN IVPB SCH (12:00)
[2018-01-18 16:00] VITALS: BP 143/62
[2018-01-18 20:00] VITALS: BP 107/48
[2018-01-18] MEDS: Dyna-Hex 2% Top Sol 2oz TOPIC SCH (20:25)
--- NOTE | 2018-01-18 21:34 | General Progress Note ---
Assessment/Plan Assessment/Plan Assessment - GT dislodgement --> 24 FR lynn replaced with 20FR GT catheter - Abdominal breathing with high pressure - OBS - contractures - UTI - h/o DVT - Poor Px Recommendations - Continue TF - watch for GT site leak - Elevte HOB - GT care Subjective Allergies: Coded Allergies: CEFTRIAXONE (Verified Allergy, Unknown, 03/31/17) PENICILLINS (Verified Allergy, Unknown, 03/31/17) SULFA (SULFONAMIDE ANTIBIOTICS) (Verified Allergy, Unknown, 03/31/17) TAZOBACTAM (Verified Allergy, Unknown, 03/31/17) Subjective confused tolerating TF no events overnight Objective Last 24 Hour Vital Signs Date Time Temp Pulse Resp B/P (MAP) Pulse Ox O2 Delivery O2 Flow Rate FiO2 01/18/18 20:00 97.7 64 12 107/48 100 Nasal Cannula 2.0 97.7 01/18/18 19:30 96 Nasal Cannula 2.0 28 01/18/18 19:30 Nasal Cannula 2.0 28 01/18/18 17:54 143/62 01/18/18 16:00 97.9 89 19 143/62 95 Nasal Cannula 2.0 97.9 01/18/18 16:00 85 01/18/18 12:40 141/66 01/18/18 12:00 100 01/18/18 12:00 97.1 95 20 141/66 99 Nasal Cannula 2.0 97.1 01/18/18 11:51 Nasal Cannula 2.0 28 01/18/18 09:15 98 Nasal Cannula 2.0 28 01/18/18 08:00 75 01/18/18 08:00 97.8 83 20 140/92 96 Nasal Cannula 2.0 97.8 01/18/18 05:48 150/68 01/18/18 04:00 97.7 74 19 150/68 98 Nasal Cannula 2.0 97.7 01/18/18 03:40 76 01/18/18 00:55 147/62 01/18/18 00:00 76 01/18/18 00:00 97.7 80 20 147/62 97 Nasal Cannula 2.0 97.7 Intake and Output 01/17/18 01/18/18 19:00 07:00 Intake Total 555 ml Output Total 300 ml Balance 255 ml Tube Feeding 555 ml Output Urine Total 300 ml # Voids 1 # Bowel Movements 1 Laboratory Tests 01/18/18 11:00: Sodium Level 142, Potassium Level 3.4L, Chloride Level 101, Carbon Dioxide Level 40H, Anion Gap 1L, Blood Urea Nitrogen 20H, Creatinine 0.4L, Estimat Glomerular Filtration Rate , Glucose Level 112H, Calcium Level 8.7, Magnesium Level 2.1 Height (Feet): 5 Height (Inches): 4.00 Weight (Pounds): 200 Objective Debilitated WW non purposeful movements NCAT stiff neck/extremities CTA RRR Soft ND abd, (+) GT , minimal leak no edema OBS NAS SCHUMACHER Jan 18, 2018 21:34
[2018-01-18] MEDS ORDERED: Gentamicin Rx monitoring MISC PRN (22:00)
[2018-01-18] MEDS ORDERED: Milk of Magnesia 30ml Ud GT PRN (22:00)
[2018-01-18] MEDS ORDERED: Acetaminophen 650mg/20.3ml ORAL PRN (22:00)
[2018-01-18] MEDS ORDERED: Enoxaparin 100mg Inj SUBQ SCH (23:00)
[2018-01-19] VITALS: BP 130/69
[2018-01-19] MEDS: HydrALAZINE 10mg Tab GT SCH ×4 (00:36→17:25)
[2018-01-19 04:00] VITALS: BP 124/54
[2018-01-19 08:00] VITALS: BP 136/57
[2018-01-19] MEDS: Valproic Acid 250mg/5ml Liquid NG SCH ×2 (08:44→20:35)
[2018-01-19] MEDS: Ascorbic Acid 500mg tab GT SCH ×2 (08:45→17:31)
[2018-01-19] MEDS: Docusate 100mg/10ml Liq NG SCH ×2 (09:00→17:31)
[2018-01-19] MEDS: Lacosamide 50mg tablet ORAL SCH ×2 (09:14→20:36)
--- NOTE | 2018-01-19 11:00 | Progress Note ---
DATE: 01/18/2018 CARDIOLOGY PROGRESS NOTE SUBJECTIVE: The patient has no new distress. She is completing IV antibiotic therapy. She is tolerating tube feedings. OBJECTIVE: VITAL SIGNS: Stable, blood pressure 130/69, pulse 69, and respirations 20. LUNGS: Clear. CARDIAC: Irregularly irregular ABDOMEN: Soft. G-tube intact. EXTREMITIES: Trace edema. LABORATORY DATA: Potassium 3.4, BUN 20, creatinine 0.4, magnesium 2.1, and bicarbonate 40. IMPRESSION: 1. Rehydrated, resolving. 2. Contraction alkalosis. 3. Mild hypokalemia. 4. Polymicrobial urinary infection. 5. Atrial fibrillation. 6. Chronic diastolic congestive heart failure. 7. Moderate protein-calorie malnutrition. PLAN: 1. Full anticoagulation. 2. Resume rivaroxaban. 3. Discontinue additional IV fluids. 4. Antibiotics per Infectious Disease area development consultant. 5. Nutrition by feeding tube. 6. Discharge planning. Nick Gilbert M.D. DR: ROBYN JOB#: [id number] CC:
[2018-01-19 12:00] VITALS: BP 152/74
[2018-01-19] MEDS ORDERED: D5W IVPB SCH (12:00)
[2018-01-19] MEDS ORDERED: GENTAMICIN IVPB SCH (12:00)
--- NOTE | 2018-01-19 12:32 | Infectious Diseases Prog Note ---
Assessment/Plan Assessment/Plan A 1. VRE & pseudomonas UTI 2. pneumonia 3. multiple sclerosis 4. quadriplegia 5. seizures P 1. d/c IV Gentamicin 2. Continue linezolid X 2 days Subjective ROS Limited/Unobtainable: Yes Allergies: Coded Allergies: CEFTRIAXONE (Verified Allergy, Unknown, 03/31/17) PENICILLINS (Verified Allergy, Unknown, 03/31/17) SULFA (SULFONAMIDE ANTIBIOTICS) (Verified Allergy, Unknown, 03/31/17) TAZOBACTAM (Verified Allergy, Unknown, 03/31/17) Objective Vital Signs Last 24 Hour Vital Signs Date Time Temp Pulse Resp B/P (MAP) Pulse Ox O2 Delivery O2 Flow Rate FiO2 01/19/18 12:00 98.8 92 20 152/74 99 Room Air 98.8 01/19/18 11:38 152/92 01/19/18 08:00 98.4 80 19 136/57 95 Nasal Cannula 2.0 98.4 01/19/18 05:54 143/79 01/19/18 04:00 97.0 74 20 124/54 91 97.0 01/19/18 00:36 130/69 01/19/18 00:00 Nasal Cannula 01/19/18 00:00 97.3 69 20 130/69 99 97.3 01/18/18 20:00 97.7 64 12 107/48 100 Nasal Cannula 2.0 97.7 01/18/18 19:30 96 Nasal Cannula 2.0 28 01/18/18 19:30 Nasal Cannula 2.0 28 01/18/18 17:54 143/62 01/18/18 16:00 97.9 89 19 143/62 95 Nasal Cannula 2.0 97.9 01/18/18 16:00 85 01/18/18 12:40 141/66 Height (Feet): 5 Height (Inches): 4.00 Weight (Pounds): 200 General Appearance: no acute distress HEENT: mucous membranes moist Respiratory/Chest: lungs clear Cardiovascular: normal rate Abdomen: soft, non tender, other - GT feeding Extremities: other - decreased edema Neurologic/Psychiatric: unresponsiveness Current Medications Medications (Trade) Dose Ordered Sig/Reji Route PRN Reason Start Time Stop Time Status Last Admin Dose Admin Acetaminophen (Tylenol) 650 mg Q4H PRN ORAL Mild Pain/Temp > 100.5 01/18/18 22:00 02/10/18 21:59 Ascorbic Acid (Vitamin C) 500 mg BID GT 01/19/18 09:00 02/11/18 08:59 01/19/18 08:45 Bisacodyl (Dulcolax) 10 mg DAILYPRN PRN RECTAL Persistent Constipation 01/18/18 22:00 02/17/18 21:59 Chlorhexidine Gluconate (Sheela-Hex 2%) 1 applic DAILY@2000 TOPIC 01/19/18 20:00 02/16/18 19:59 Docusate Sodium (Colace) 100 mg TWICE A DAY NG 01/19/18 09:00 02/12/18 17:59 Famotidine (Pepcid) 20 mg DAILY GT 01/19/18 09:00 02/11/18 08:59 01/19/18 08:45 Hydralazine HCl (Apresoline) 10 mg EVERY 6 HOURS GT 01/19/18 00:00 02/11/18 00:00 01/19/18 11:38 Lacosamide (Vimpat) 50 mg Q12HR ORAL 01/18/18 22:00 02/11/18 21:59 01/19/18 09:14 Lansoprazole (Prevacid) 30 mg DAILY GT 01/19/18 09:00 02/11/18 08:59 01/19/18 09:13 Levothyroxine Sodium (Synthroid) 100 mcg ACBREAKFAST GT 01/19/18 06:30 02/11/18 06:29 01/19/18 05:55 Linezolid (Zyvox) 600 mg EVERY 12 HOURS ORAL 01/19/18 09:00 01/21/18 23:00 01/19/18 08:44 Magnesium Hydroxide (Mom) 30 ml TIDPRN PRN GT Constipation 01/18/18 22:00 02/10/18 21:59 Rivaroxaban (Xarelto) 15 mg DAILY GT 01/19/18 09:00 02/18/18 08:59 UNV Valproic Acid (Depakene) 1,000 mg EVERY 12 HOURS NG 01/18/18 22:00 02/11/18 21:59 01/19/18 08:44 PARDEEP IRVING Jan 19, 2018 12:32
[2018-01-19 15:57] VITALS: BP 116/61
[2018-01-19 20:00] VITALS: BP 117/73
--- NOTE | 2018-01-19 20:33 | General Progress Note ---
Assessment/Plan Problem List: (1) Paroxysmal atrial fibrillation with rapid ventricular response ICD Codes: I48.0 - Paroxysmal atrial fibrillation SNOMED: 557090074, 419171363313045 (2) UTI (urinary tract infection) ICD Codes: N39.0 - Urinary tract infection, site not specified SNOMED: 41098593 (3) Infection due to drug-resistant organism ICD Codes: Z16.30 - Resistance to unspecified antimicrobial drugs SNOMED: 300871018 (4) Chronic deep vein thrombosis (DVT) ICD Codes: I82.509 - Chronic embolism and thrombosis of unspecified deep veins of unspecified lower extremity SNOMED: 55204623129403074 (5) Seizure disorder ICD Codes: G40.909 - Epilepsy, unspecified, not intractable, without status epilepticus SNOMED: 630896426 Status: stable, progressing Assessment/Plan iv abx follow up cultures tube feeds id follow up sz rx monitor labs bowel regime dc planning Subjective ROS Limited/Unobtainable: Yes Constitutional: Reports: malaise, weakness HEENT: Reports: no symptoms Cardiovascular: Reports: no symptoms Respiratory: Reports: cough Gastrointestinal/Abdominal: Reports: abdomen distended Genitourinary: Reports: no symptoms Neurologic/Psychiatric: Reports: pre-existing deficit, seizure Endocrine: Reports: no symptoms Hematologic/Lymphatic: Reports: no symptoms Allergies: Coded Allergies: CEFTRIAXONE (Verified Allergy, Unknown, 03/31/17) PENICILLINS (Verified Allergy, Unknown, 03/31/17) SULFA (SULFONAMIDE ANTIBIOTICS) (Verified Allergy, Unknown, 03/31/17) TAZOBACTAM (Verified Allergy, Unknown, 03/31/17) All Systems: reviewed and negative except above Subjective no events. confused. no szs. on gt feeds. no vomiting. Objective Last 24 Hour Vital Signs Date Time Temp Pulse Resp B/P (MAP) Pulse Ox O2 Delivery O2 Flow Rate FiO2 01/19/18 20:00 98.1 79 22 117/73 97 98.1 01/19/18 15:57 98.5 81 20 116/61 99 Nasal Cannula 2.0 98.5 01/19/18 12:00 98.8 92 20 152/74 99 Room Air 98.8 01/19/18 11:38 152/92 01/19/18 08:00 98.4 80 19 136/57 95 Nasal Cannula 2.0 98.4 01/19/18 05:54 143/79 01/19/18 04:00 97.0 74 20 124/54 91 97.0 01/19/18 00:36 130/69 01/19/18 00:00 Nasal Cannula 01/19/18 00:00 97.3 69 20 130/69 99 97.3 Intake and Output 01/18/18 01/19/18 19:00 07:00 Intake Total 715 ml Balance 715 ml Tube Feeding 715 ml # Voids 3 # Bowel Movements 2 2 Height (Feet): 5 Height (Inches): 4.00 Weight (Pounds): 200 Objective General Appearance: WD/WN, lethargic, confused Neck: supple Cardiovascular: normal rate, regular rhythm Respiratory/Chest: chest wall non-tender, lungs clear, normal breath sounds Abdomen: normal bowel sounds, non tender, soft, no organomegaly Edema: no edema noted Arm (L), no edema noted Arm (R), no edema noted Leg (L), no edema noted Leg (R), no edema noted Pedal (L), no edema noted Pedal (R), no edema noted Generalized Neurologic: disoriented, unresponsive, aphasia BREANNE SORIA Jan 19, 2018 20:33
[2018-01-19] MEDS: Dyna-Hex 2% Top Sol 2oz TOPIC SCH (20:35)
[2018-01-19] MEDS ORDERED: Xarelto 10mg tab GT SCH (21:00)
[2018-01-19] MEDS: Xarelto 10mg tab GT SCH (21:15)
--- NOTE | 2018-01-19 21:29 | General Progress Note ---
Assessment/Plan Assessment/Plan Assessment - GT dislodgement --> 24 FR lynn replaced with 20FR GT catheter - Abdominal breathing with high pressure - OBS - contractures - UTI - h/o DVT - Poor Px Recommendations - Continue TF - watch for GT site leak - Elevte HOB - GT care Subjective Allergies: Coded Allergies: CEFTRIAXONE (Verified Allergy, Unknown, 03/31/17) PENICILLINS (Verified Allergy, Unknown, 03/31/17) SULFA (SULFONAMIDE ANTIBIOTICS) (Verified Allergy, Unknown, 03/31/17) TAZOBACTAM (Verified Allergy, Unknown, 03/31/17) Subjective confused tolerating TF no events overnight labs noted Objective Last 24 Hour Vital Signs Date Time Temp Pulse Resp B/P (MAP) Pulse Ox O2 Delivery O2 Flow Rate FiO2 01/19/18 20:00 98.1 79 22 117/73 97 98.1 01/19/18 15:57 98.5 81 20 116/61 99 Nasal Cannula 2.0 98.5 01/19/18 12:00 98.8 92 20 152/74 99 Room Air 98.8 01/19/18 11:38 152/92 01/19/18 08:00 98.4 80 19 136/57 95 Nasal Cannula 2.0 98.4 01/19/18 05:54 143/79 01/19/18 04:00 97.0 74 20 124/54 91 97.0 01/19/18 00:36 130/69 01/19/18 00:00 Nasal Cannula 01/19/18 00:00 97.3 69 20 130/69 99 97.3 Intake and Output 01/18/18 01/19/18 19:00 07:00 Intake Total 715 ml Balance 715 ml Tube Feeding 715 ml # Voids 3 # Bowel Movements 2 2 Height (Feet): 5 Height (Inches): 4.00 Weight (Pounds): 200 Objective Debilitated WW non purposeful movements NCAT stiff neck/extremities CTA RRR Soft ND abd, (+) GT , minimal leak no edema OBS NAS SCHUMACHER Jan 19, 2018 21:29
--- NOTE | 2018-01-19 22:15 | Progress Note ---
DATE: 01/19/2018 SUBJECTIVE: The patient has no new distress. She continues on oral antibiotics. IV gentamicin discontinued. OBJECTIVE: VITAL SIGNS: Blood pressure 152/74, pulse 92, respirations 20. LUNGS: Clear. CARDIAC: Regular. Normal S1, S2. There is a fourth heart sound. ABDOMEN: Soft. EXTREMITIES: With trace edema. LABORATORY DATA: Stool occult blood negative. IMPRESSION: 1. Metabolically improved. 2. Atrial fibrillation is chronic and rate controlled. 3. Chronic diastolic congestive heart failure, compensated. 4. Moderate protein-calorie malnutrition, on feedings by G-tube. PLAN: Discharge planning to find a nursing facility that . Full anticoagulation. Maintain adequate free water replacement. Complete antibiotics per Infectious Disease computing consultant's schedule. No diuretic therapy at this time. Maintain current anti-failure and antihypertensive regimen without change. Nick Gilbert M.D. DR: Alexus JOB#: [id number] CC:
[2018-01-20] VITALS: BP 135/79
[2018-01-20] MEDS: HydrALAZINE 10mg Tab GT SCH ×5 (00:02→23:42)
[2018-01-20 04:00] VITALS: BP 140/62
[2018-01-20 08:00] VITALS: BP 131/86
[2018-01-20] MEDS: Docusate 100mg/10ml Liq NG SCH ×2 (08:29→18:09)
[2018-01-20] MEDS: Ascorbic Acid 500mg tab GT SCH ×2 (08:30→18:10)
[2018-01-20] MEDS: Lacosamide 50mg tablet ORAL SCH ×2 (08:30→20:31)
[2018-01-20] MEDS: Valproic Acid 250mg/5ml Liquid NG SCH ×2 (10:50→20:31)
[2018-01-20 12:00] VITALS: BP 136/79
--- NOTE | 2018-01-20 12:02 | General Progress Note ---
Assessment/Plan Assessment/Plan Assessment - GT dislodgement --> 24 FR lynn replaced with 20FR GT catheter - Abdominal breathing with high pressure - OBS - contractures - UTI - h/o DVT - Poor Px Recommendations - Continue TF - watch for GT site leak - Elevte HOB - GT care Subjective Allergies: Coded Allergies: CEFTRIAXONE (Verified Allergy, Unknown, 03/31/17) PENICILLINS (Verified Allergy, Unknown, 03/31/17) SULFA (SULFONAMIDE ANTIBIOTICS) (Verified Allergy, Unknown, 03/31/17) TAZOBACTAM (Verified Allergy, Unknown, 03/31/17) Subjective confused tolerating TF no events overnight Objective Last 24 Hour Vital Signs Date Time Temp Pulse Resp B/P (MAP) Pulse Ox O2 Delivery O2 Flow Rate FiO2 01/20/18 08:00 98.1 78 131/86 96 Nasal Cannula 2.0 98.1 01/20/18 05:51 140/62 01/20/18 04:00 97.1 73 22 140/62 96 97.1 01/20/18 04:00 96 Nasal Cannula 2.0 01/20/18 00:02 135/79 01/20/18 00:00 98 Nasal Cannula 2.0 01/20/18 00:00 97.6 75 20 135/79 98 97.6 01/19/18 20:00 98.1 79 22 117/73 97 98.1 01/19/18 20:00 97 Nasal Cannula 2.0 01/19/18 15:57 98.5 81 20 116/61 99 Nasal Cannula 2.0 98.5 Intake and Output 01/19/18 01/20/18 19:00 07:00 Intake Total 65 ml 875 ml Balance 65 ml 875 ml Free Water 160 ml Tube Feeding 65 ml 715 ml # Voids 1 # Bowel Movements 1 Height (Feet): 5 Height (Inches): 4.00 Weight (Pounds): 200 Objective Debilitated WW non purposeful movements NCAT stiff neck/extremities CTA RRR Soft ND abd, (+) GT , minimal leak no edema OBS NAS SCHUMACHER Jan 20, 2018 12:02
--- NOTE | 2018-01-20 13:24 | Infectious Diseases Prog Note ---
Assessment/Plan Assessment/Plan A 1. VRE & pseudomonas UTI 2. pneumonia 3. multiple sclerosis 4. quadriplegia 5. seizures P 1. Continue linezolid X 1 day Subjective ROS Limited/Unobtainable: Yes Allergies: Coded Allergies: CEFTRIAXONE (Verified Allergy, Unknown, 03/31/17) PENICILLINS (Verified Allergy, Unknown, 03/31/17) SULFA (SULFONAMIDE ANTIBIOTICS) (Verified Allergy, Unknown, 03/31/17) TAZOBACTAM (Verified Allergy, Unknown, 03/31/17) Objective Vital Signs Last 24 Hour Vital Signs Date Time Temp Pulse Resp B/P (MAP) Pulse Ox O2 Delivery O2 Flow Rate FiO2 01/20/18 12:21 136/79 01/20/18 12:00 98.4 72 136/79 98 Nasal Cannula 2.0 98.4 01/20/18 08:00 98.1 78 131/86 96 Nasal Cannula 2.0 98.1 01/20/18 05:51 140/62 01/20/18 04:00 97.1 73 22 140/62 96 97.1 01/20/18 04:00 96 Nasal Cannula 2.0 01/20/18 00:02 135/79 01/20/18 00:00 98 Nasal Cannula 2.0 01/20/18 00:00 97.6 75 20 135/79 98 97.6 01/19/18 20:00 98.1 79 22 117/73 97 98.1 01/19/18 20:00 97 Nasal Cannula 2.0 01/19/18 15:57 98.5 81 20 116/61 99 Nasal Cannula 2.0 98.5 Height (Feet): 5 Height (Inches): 4.00 Weight (Pounds): 200 General Appearance: no acute distress HEENT: mucous membranes moist Respiratory/Chest: lungs clear Cardiovascular: normal rate Abdomen: distended, other - GT feeding Extremities: other - edema Neurologic/Psychiatric: aphasia Current Medications Medications (Trade) Dose Ordered Sig/Reji Route PRN Reason Start Time Stop Time Status Last Admin Dose Admin Acetaminophen (Tylenol) 650 mg Q4H PRN ORAL Mild Pain/Temp > 100.5 01/18/18 22:00 02/10/18 21:59 Ascorbic Acid (Vitamin C) 500 mg BID GT 01/19/18 09:00 02/11/18 08:59 01/20/18 08:30 Bisacodyl (Dulcolax) 10 mg DAILYPRN PRN RECTAL Persistent Constipation 01/18/18 22:00 02/17/18 21:59 Chlorhexidine Gluconate (Sheela-Hex 2%) 1 applic DAILY@1999 TOPIC 01/19/18 20:00 02/16/18 19:59 01/19/18 20:35 Docusate Sodium (Colace) 100 mg TWICE A DAY NG 01/19/18 09:00 02/12/18 17:59 01/20/18 08:29 Famotidine (Pepcid) 20 mg DAILY GT 01/19/18 09:00 02/11/18 08:59 01/20/18 08:30 Hydralazine HCl (Apresoline) 10 mg EVERY 6 HOURS GT 01/19/18 00:00 02/11/18 00:00 01/20/18 12:21 Lacosamide (Vimpat) 50 mg Q12HR ORAL 01/18/18 22:00 02/11/18 21:59 01/20/18 08:30 Lansoprazole (Prevacid) 30 mg DAILY GT 01/19/18 09:00 02/11/18 08:59 01/20/18 08:29 Levothyroxine Sodium (Synthroid) 100 mcg ACBREAKFAST GT 01/19/18 06:30 02/11/18 06:29 01/20/18 05:52 Linezolid (Zyvox) 600 mg EVERY 12 HOURS ORAL 01/19/18 09:00 01/21/18 23:00 01/20/18 08:29 Magnesium Hydroxide (Mom) 30 ml TIDPRN PRN GT Constipation 01/18/18 22:00 02/10/18 21:59 Rivaroxaban (Xarelto) 20 mg QPM GT 01/19/18 21:30 02/18/18 21:29 01/19/18 21:15 Valproic Acid (Depakene) 1,000 mg EVERY 12 HOURS NG 01/18/18 22:00 02/11/18 21:59 01/20/18 10:50 PARDEEP IRVING Jan 20, 2018 13:24
[2018-01-20 16:00] VITALS: BP 143/58
--- NOTE | 2018-01-20 16:30 | General Progress Note ---
Assessment/Plan Problem List: (1) Paroxysmal atrial fibrillation with rapid ventricular response ICD Codes: I48.0 - Paroxysmal atrial fibrillation SNOMED: 618173595, 243462244716795 (2) UTI (urinary tract infection) ICD Codes: N39.0 - Urinary tract infection, site not specified SNOMED: 85033298 (3) Infection due to drug-resistant organism ICD Codes: Z16.30 - Resistance to unspecified antimicrobial drugs SNOMED: 698235877 (4) Chronic deep vein thrombosis (DVT) ICD Codes: I82.509 - Chronic embolism and thrombosis of unspecified deep veins of unspecified lower extremity SNOMED: 32949949441896668 (5) Seizure disorder ICD Codes: G40.909 - Epilepsy, unspecified, not intractable, without status epilepticus SNOMED: 072098856 Assessment/Plan iv abx x 1 more day tube feeds id follow up sz rx monitor labs bowel regime dc planning Subjective ROS Limited/Unobtainable: Yes Constitutional: Reports: malaise, weakness HEENT: Reports: no symptoms Cardiovascular: Reports: no symptoms Respiratory: Reports: cough Gastrointestinal/Abdominal: Reports: abdomen distended, difficulty swallowing Genitourinary: Reports: no symptoms Neurologic/Psychiatric: Reports: pre-existing deficit, seizure Endocrine: Reports: no symptoms Hematologic/Lymphatic: Reports: no symptoms Allergies: Coded Allergies: CEFTRIAXONE (Verified Allergy, Unknown, 03/31/17) PENICILLINS (Verified Allergy, Unknown, 03/31/17) SULFA (SULFONAMIDE ANTIBIOTICS) (Verified Allergy, Unknown, 03/31/17) TAZOBACTAM (Verified Allergy, Unknown, 03/31/17) All Systems: reviewed and negative except above Subjective no events. confused. no szs. on gt feeds. no vomiting. no recent labs Objective Last 24 Hour Vital Signs Date Time Temp Pulse Resp B/P (MAP) Pulse Ox O2 Delivery O2 Flow Rate FiO2 01/20/18 12:21 136/79 01/20/18 12:00 98.4 72 136/79 98 Nasal Cannula 2.0 98.4 01/20/18 08:00 98.1 78 131/86 96 Nasal Cannula 2.0 98.1 01/20/18 05:51 140/62 01/20/18 04:00 97.1 73 22 140/62 96 97.1 01/20/18 04:00 96 Nasal Cannula 2.0 01/20/18 00:02 135/79 01/20/18 00:00 98 Nasal Cannula 2.0 01/20/18 00:00 97.6 75 20 135/79 98 97.6 01/19/18 20:00 98.1 79 22 117/73 97 98.1 01/19/18 20:00 97 Nasal Cannula 2.0 Intake and Output 01/19/18 01/20/18 19:00 07:00 Intake Total 1000 ml 875 ml Balance 1000 ml 875 ml Free Water 220 ml 160 ml Tube Feeding 780 ml 715 ml # Voids 1 # Bowel Movements 1 Height (Feet): 5 Height (Inches): 4.00 Weight (Pounds): 200 Objective General Appearance: WD/WN, lethargic, confused Neck: supple Cardiovascular: normal rate, regular rhythm Respiratory/Chest: chest wall non-tender, lungs clear, normal breath sounds Abdomen: normal bowel sounds, non tender, soft, no organomegaly Edema: no edema noted Arm (L), no edema noted Arm (R), no edema noted Leg (L), no edema noted Leg (R), no edema noted Pedal (L), no edema noted Pedal (R), no edema noted Generalized Neurologic: disoriented, unresponsive, aphasia BREANNE SORIA Jan 20, 2018 16:30
[2018-01-20] MEDS: Xarelto 10mg tab GT SCH (17:17)
[2018-01-20 20:00] VITALS: BP 131/58
[2018-01-20] MEDS: Dyna-Hex 2% Top Sol 2oz TOPIC SCH (20:30)
[2018-01-21] VITALS: BP 139/71
[2018-01-21 04:00] VITALS: BP 131/59
[2018-01-21] MEDS: HydrALAZINE 10mg Tab GT SCH ×4 (06:08→23:52)
[2018-01-21 07:20] LABS: BASOPHILS % (AUTO) 0.7 % (0.0-2.0); EOSINOPHILS % (AUTO) 2.2 % (0.0-3.0); HEMATOCRIT 36.5 % (37.0-47.0); HEMOGLOBIN 11.3 G/DL (12.0-16.0); LYMPHOCYTES % (AUTO) 28.3 % (20.0-45.0); MEAN CORPUSCULAR VOLUME 103 FL (80-99); MONOCYTES % (AUTO) 7.6 % (1.0-10.0); NEUTROPHILS % (AUTO) 61.2 % (45.0-75.0); PLATELET COUNT 283 K/UL (150-450); RED BLOOD COUNT 3.56 M/UL (4.20-5.40); RED CELL DISTRIBUTION WIDTH 15.3 % (11.6-14.8); WHITE BLOOD COUNT 4.9 K/UL (4.8-10.8)
[2018-01-21 07:38] LABS: ALANINE AMINOTRANSFERASE 8 U/L (12-78); ALBUMIN 2.3 G/DL (3.4-5.0); ALBUMIN/GLOBULIN RATIO 0.4 (1.0-2.7); ALKALINE PHOSPHATASE 60 U/L (46-116); ANION GAP 2 mmol/L (5-15); ASPARTATE AMINO TRANSFERASE 13 U/L (15-37); BILIRUBIN,TOTAL 0.2 MG/DL (0.2-1.0); BLOOD UREA NITROGEN 20 mg/dL (7-18); CARBON DIOXIDE 35 MMOL/L (21-32); CHLORIDE 104 MMOL/L (98-107); CREATININE 0.5 MG/DL (0.55-1.30); POTASSIUM 4.2 MMOL/L (3.5-5.1); SODIUM 141 MMOL/L (136-145)
[2018-01-21 08:00] VITALS: BP 100/48
[2018-01-21] MEDS: Lacosamide 50mg tablet ORAL SCH ×2 (08:42→20:31)
[2018-01-21] MEDS: Ascorbic Acid 500mg tab GT SCH ×2 (08:42→17:06)
[2018-01-21] MEDS: Docusate 100mg/10ml Liq NG SCH ×2 (08:42→17:06)
--- NOTE | 2018-01-21 08:55 | General Progress Note ---
Assessment/Plan Problem List: (1) Paroxysmal atrial fibrillation with rapid ventricular response ICD Codes: I48.0 - Paroxysmal atrial fibrillation SNOMED: 022728814, 567922735600014 (2) UTI (urinary tract infection) ICD Codes: N39.0 - Urinary tract infection, site not specified SNOMED: 20397777 (3) Infection due to drug-resistant organism ICD Codes: Z16.30 - Resistance to unspecified antimicrobial drugs SNOMED: 495240230 (4) Chronic deep vein thrombosis (DVT) ICD Codes: I82.509 - Chronic embolism and thrombosis of unspecified deep veins of unspecified lower extremity SNOMED: 33840764533931673 (5) Seizure disorder ICD Codes: G40.909 - Epilepsy, unspecified, not intractable, without status epilepticus SNOMED: 959029599 Assessment/Plan iv abx x 1 more day tube feeds id follow up sz rx monitor labs bowel regime dc planning Subjective ROS Limited/Unobtainable: Yes Constitutional: Reports: malaise, weakness HEENT: Reports: no symptoms Cardiovascular: Reports: no symptoms Respiratory: Reports: no symptoms Gastrointestinal/Abdominal: Reports: difficulty swallowing Genitourinary: Reports: no symptoms Neurologic/Psychiatric: Reports: seizure Endocrine: Reports: no symptoms Hematologic/Lymphatic: Reports: no symptoms Allergies: Coded Allergies: CEFTRIAXONE (Verified Allergy, Unknown, 03/31/17) PENICILLINS (Verified Allergy, Unknown, 03/31/17) SULFA (SULFONAMIDE ANTIBIOTICS) (Verified Allergy, Unknown, 03/31/17) TAZOBACTAM (Verified Allergy, Unknown, 03/31/17) All Systems: reviewed and negative except above Subjective no events. confused. no szs. on gt feeds. no vomiting. reviewed am labs Objective Last 24 Hour Vital Signs Date Time Temp Pulse Resp B/P (MAP) Pulse Ox O2 Delivery O2 Flow Rate FiO2 01/21/18 06:08 131/59 01/21/18 04:00 Nasal Cannula 2.0 01/21/18 04:00 98.6 78 20 131/59 95 98.6 01/21/18 00:00 97.9 83 20 139/71 96 97.9 01/21/18 00:00 Nasal Cannula 2.0 01/20/18 23:42 139/71 01/20/18 20:49 94 Nasal Cannula 2.0 28 01/20/18 20:49 Nasal Cannula 2.0 28 01/20/18 20:00 Nasal Cannula 2.0 01/20/18 20:00 97.8 86 20 131/58 92 97.8 01/20/18 18:10 143/58 01/20/18 16:00 97.9 79 18 143/58 95 Nasal Cannula 2.0 97.9 01/20/18 12:21 136/79 01/20/18 12:00 98.4 72 136/79 98 Nasal Cannula 2.0 98.4 Intake and Output 01/20/18 01/21/18 19:00 07:00 Intake Total 765 ml 865 ml Balance 765 ml 865 ml Free Water 180 ml 150 ml Tube Feeding 585 ml 715 ml # Voids 4 Laboratory Tests 01/21/18 05:30: White Blood Count 4.9, Red Blood Count 3.56L, Hemoglobin 11.3L, Hematocrit 36.5L , Mean Corpuscular Volume 103H, Mean Corpuscular Hemoglobin 31.6H, Mean Corpuscular Hemoglobin Concent 30.8L, Red Cell Distribution Width 15.3H, Platelet Count 283, Mean Platelet Volume 7.4, Neutrophils (%) (Auto) 61.2, Lymphocytes (%) (Auto) 28.3, Monocytes (%) (Auto) 7.6, Eosinophils (%) (Auto) 2.2, Basophils (%) (Auto) 0.7, Sodium Level 141, Potassium Level 4.2, Chloride Level 104, Carbon Dioxide Level 35H, Anion Gap 2L, Blood Urea Nitrogen 20H, Creatinine 0.5L, Estimat Glomerular Filtration Rate , Glucose Level 119H, Calcium Level 9.0, Total Bilirubin 0.2, Aspartate Amino Transf (AST/SGOT) 13L, Alanine Aminotransferase (ALT/SGPT) 8L, Alkaline Phosphatase 60, Total Protein 8.0, Albumin 2.3L, Globulin 5.7, Albumin/Globulin Ratio 0.4L Height (Feet): 5 Height (Inches): 4.00 Weight (Pounds): 200 Objective General Appearance: WD/WN, lethargic, confused Neck: supple Cardiovascular: normal rate, regular rhythm Respiratory/Chest: chest wall non-tender, lungs clear, normal breath sounds Abdomen: normal bowel sounds, non tender, soft, no organomegaly Edema: no edema noted Arm (L), no edema noted Arm (R), no edema noted Leg (L), no edema noted Leg (R), no edema noted Pedal (L), no edema noted Pedal (R), no edema noted Generalized Neurologic: disoriented, unresponsive, aphasia BREANNE SORIA Jan 21, 2018 08:55
[2018-01-21] MEDS: Valproic Acid 250mg/5ml Liquid NG SCH ×2 (09:07→20:31)
--- NOTE | 2018-01-21 11:27 | Infectious Diseases Prog Note ---
"Assessment/Plan Assessment/Plan antibiotics : linezolid A 1. VRE | pseudomonas UTI s/p rx 3. multiple sclerosis 4. quadriplegia 5. seizures P 1. d/c linezolid 2. will follow up cultures Subjective ROS Limited/Unobtainable: Yes Allergies: Coded Allergies: CEFTRIAXONE (Verified Allergy, Unknown, 03/31/17) PENICILLINS (Verified Allergy, Unknown, 03/31/17) SULFA (SULFONAMIDE ANTIBIOTICS) (Verified Allergy, Unknown, 03/31/17) TAZOBACTAM (Verified Allergy, Unknown, 03/31/17) Objective Vital Signs Last 24 Hour Vital Signs Date Time Temp Pulse Resp B/P (MAP) Pulse Ox O2 Delivery O2 Flow Rate FiO2 01/21/18 08:00 97.7 68 18 100/48 99 Nasal Cannula 2.0 97.7 01/21/18 06:08 131/59 01/21/18 04:00 Nasal Cannula 2.0 01/21/18 04:00 98.6 78 20 131/59 95 98.6 01/21/18 00:00 97.9 83 20 139/71 96 97.9 01/21/18 00:00 Nasal Cannula 2.0 01/20/18 23:42 139/71 01/20/18 20:49 94 Nasal Cannula 2.0 28 01/20/18 20:49 Nasal Cannula 2.0 28 01/20/18 20:00 Nasal Cannula 2.0 01/20/18 20:00 97.8 86 20 131/58 92 97.8 01/20/18 18:10 143/58 01/20/18 16:00 97.9 79 18 143/58 95 Nasal Cannula 2.0 97.9 01/20/18 12:21 136/79 01/20/18 12:00 98.4 72 136/79 98 Nasal Cannula 2.0 98.4 Height (Feet): 5 Height (Inches): 4.00 Weight (Pounds): 200 Respiratory/Chest: lungs clear Cardiovascular: normal rate, regular rhythm, no gallop/murmur Abdomen: soft, non tender, other - GT Extremities: other - + edema Laboratory Tests Test 01/21/18 05:30 White Blood Count 4.9 K/UL (4.8-10.8) Red Blood Count 3.56 M/UL (4.20-5.40) L Hemoglobin 11.3 G/DL (12.0-16.0) L Hematocrit 36.5 % (37.0-47.0) L Mean Corpuscular Volume 103 FL (80-99) H Mean Corpuscular Hemoglobin 31.6 PG (27.0-31.0) H Mean Corpuscular Hemoglobin Concent 30.8 G/DL (32.0-36.0) L Red Cell Distribution Width 15.3 % (11.6-14.8) H Platelet Count 283 K/UL (150-450) Mean Platelet Volume 7.4 FL (6.5-10.1) Neutrophils (%) (Auto) 61.2 % (45.0-75.0) Lymphocytes (%) (Auto) 28.3 % (20.0-45.0) Monocytes (%) (Auto) 7.6 % (1.0-10.0) Eosinophils (%) (Auto) 2.2 % (0.0-3.0) Basophils (%) (Auto) 0.7 % (0.0-2.0) Sodium Level 141 MMOL/L (136-145) Potassium Level 4.2 MMOL/L (3.5-5.1) Chloride Level 104 MMOL/L (98-107) Carbon Dioxide Level 35 MMOL/L (21-32) H Anion Gap 2 mmol/L (5-15) L Blood Urea Nitrogen 20 mg/dL (7-18) H Creatinine 0.5 MG/DL (0.55-1.30) L Estimat Glomerular Filtration Rate mL/min (>60) Glucose Level 119 MG/DL (74-106) H Calcium Level 9.0 MG/DL (8.5-10.1) Total Bilirubin 0.2 MG/DL (0.2-1.0) Aspartate Amino Transf (AST/SGOT) 13 U/L (15-37) L Alanine Aminotransferase (ALT/SGPT) 8 U/L (12-78) L Alkaline Phosphatase 60 U/L (46-116) Total Protein 8.0 G/DL (6.4-8.2) Albumin 2.3 G/DL (3.4-5.0) L Globulin 5.7 g/dL Albumin/Globulin Ratio 0.4 (1.0-2.7) L MARGARITA GUTIERREZKUNTALA Jan 21, 2018 11:27"
[2018-01-21 12:00] VITALS: BP 104/50
[2018-01-21 16:07] VITALS: BP 101/52
[2018-01-21] MEDS: Xarelto 10mg tab GT SCH (17:06)
[2018-01-21 20:00] VITALS: BP 130/67
[2018-01-21] MEDS: Dyna-Hex 2% Top Sol 2oz TOPIC SCH (20:28)
--- NOTE | 2018-01-21 21:39 | General Progress Note ---
Assessment/Plan Assessment/Plan Assessment - GT dislodgement --> 24 FR lynn replaced with 20FR GT catheter - Abdominal breathing with high pressure - OBS - contractures - UTI - h/o DVT - Poor Px Recommendations - Continue TF - watch for GT site leak - Elevte HOB - GT care Subjective Allergies: Coded Allergies: CEFTRIAXONE (Verified Allergy, Unknown, 03/31/17) PENICILLINS (Verified Allergy, Unknown, 03/31/17) SULFA (SULFONAMIDE ANTIBIOTICS) (Verified Allergy, Unknown, 03/31/17) TAZOBACTAM (Verified Allergy, Unknown, 03/31/17) Subjective confused tolerating TF no events overnight Objective Last 24 Hour Vital Signs Date Time Temp Pulse Resp B/P (MAP) Pulse Ox O2 Delivery O2 Flow Rate FiO2 01/21/18 20:00 97.9 87 20 130/67 99 97.9 01/21/18 17:07 101/52 01/21/18 16:07 98.0 75 18 101/52 99 Nasal Cannula 2.0 98.0 01/21/18 12:00 98.0 70 18 104/50 98 Nasal Cannula 2.0 98.0 01/21/18 12:00 104/50 01/21/18 08:00 97.7 68 18 100/48 99 Nasal Cannula 2.0 97.7 01/21/18 06:08 131/59 01/21/18 04:00 Nasal Cannula 2.0 01/21/18 04:00 98.6 78 20 131/59 95 98.6 01/21/18 00:00 97.9 83 20 139/71 96 97.9 01/21/18 00:00 Nasal Cannula 2.0 01/20/18 23:42 139/71 Intake and Output 01/20/18 01/21/18 19:00 07:00 Intake Total 765 ml 865 ml Balance 765 ml 865 ml Free Water 180 ml 150 ml Tube Feeding 585 ml 715 ml # Voids 4 Laboratory Tests 01/21/18 05:30: White Blood Count 4.9, Red Blood Count 3.56L, Hemoglobin 11.3L, Hematocrit 36.5L , Mean Corpuscular Volume 103H, Mean Corpuscular Hemoglobin 31.6H, Mean Corpuscular Hemoglobin Concent 30.8L, Red Cell Distribution Width 15.3H, Platelet Count 283, Mean Platelet Volume 7.4, Neutrophils (%) (Auto) 61.2, Lymphocytes (%) (Auto) 28.3, Monocytes (%) (Auto) 7.6, Eosinophils (%) (Auto) 2.2, Basophils (%) (Auto) 0.7, Sodium Level 141, Potassium Level 4.2, Chloride Level 104, Carbon Dioxide Level 35H, Anion Gap 2L, Blood Urea Nitrogen 20H, Creatinine 0.5L, Estimat Glomerular Filtration Rate , Glucose Level 119H, Calcium Level 9.0, Total Bilirubin 0.2, Aspartate Amino Transf (AST/SGOT) 13L, Alanine Aminotransferase (ALT/SGPT) 8L, Alkaline Phosphatase 60, Total Protein 8.0, Albumin 2.3L, Globulin 5.7, Albumin/Globulin Ratio 0.4L Height (Feet): 5 Height (Inches): 4.00 Weight (Pounds): 200 Objective Debilitated WW non purposeful movements NCAT stiff neck/extremities CTA RRR Soft ND abd, (+) GT , minimal leak no edema OBS NAS SCHUMACHER Jan 21, 2018 21:39
[2018-01-22] VITALS: BP 127/59
[2018-01-22 04:00] VITALS: BP 109/48
[2018-01-22] MEDS: HydrALAZINE 10mg Tab GT SCH ×4 (06:00→23:33)
[2018-01-22 08:00] VITALS: BP 129/69
--- NOTE | 2018-01-22 09:18 | General Progress Note ---
Assessment/Plan Problem List: (1) Paroxysmal atrial fibrillation with rapid ventricular response ICD Codes: I48.0 - Paroxysmal atrial fibrillation SNOMED: 667472424, 537472213235871 (2) UTI (urinary tract infection) ICD Codes: N39.0 - Urinary tract infection, site not specified SNOMED: 06932264 (3) Infection due to drug-resistant organism ICD Codes: Z16.30 - Resistance to unspecified antimicrobial drugs SNOMED: 167036039 (4) Chronic deep vein thrombosis (DVT) ICD Codes: I82.509 - Chronic embolism and thrombosis of unspecified deep veins of unspecified lower extremity SNOMED: 86972900519930829 (5) Seizure disorder ICD Codes: G40.909 - Epilepsy, unspecified, not intractable, without status epilepticus SNOMED: 998344469 Status: stable, progressing Assessment/Plan monitor off abx tube feeds id follow up sz rx monitor labs bowel regime dc planning Subjective ROS Limited/Unobtainable: Yes Constitutional: Reports: malaise, weakness HEENT: Reports: no symptoms Cardiovascular: Reports: no symptoms Respiratory: Reports: no symptoms Gastrointestinal/Abdominal: Reports: difficulty swallowing Genitourinary: Reports: no symptoms Neurologic/Psychiatric: Reports: pre-existing deficit, seizure Endocrine: Reports: no symptoms Hematologic/Lymphatic: Reports: no symptoms Allergies: Coded Allergies: CEFTRIAXONE (Verified Allergy, Unknown, 03/31/17) PENICILLINS (Verified Allergy, Unknown, 03/31/17) SULFA (SULFONAMIDE ANTIBIOTICS) (Verified Allergy, Unknown, 03/31/17) TAZOBACTAM (Verified Allergy, Unknown, 03/31/17) All Systems: reviewed and negative except above Subjective no events. confused. no szs. on gt feeds. no vomiting. reviewed am labs. accepted to [facility] Objective Last 24 Hour Vital Signs Date Time Temp Pulse Resp B/P (MAP) Pulse Ox O2 Delivery O2 Flow Rate FiO2 01/22/18 06:00 109/48 01/22/18 04:00 Nasal Cannula 2.0 01/22/18 04:00 96.9 70 20 109/48 99 Nasal Cannula 96.9 01/22/18 00:00 98.5 81 20 127/59 100 Nasal Cannula 98.5 01/22/18 00:00 Nasal Cannula 2.0 01/21/18 23:52 127/59 01/21/18 20:00 97.9 87 20 130/67 99 97.9 01/21/18 20:00 Nasal Cannula 2.0 01/21/18 17:07 101/52 01/21/18 16:07 98.0 75 18 101/52 99 Nasal Cannula 2.0 98.0 01/21/18 12:00 98.0 70 18 104/50 98 Nasal Cannula 2.0 98.0 01/21/18 12:00 104/50 Intake and Output 01/21/18 01/22/18 19:00 07:00 Intake Total 835 ml 865 ml Balance 835 ml 865 ml Free Water 120 ml 150 ml Tube Feeding 715 ml 715 ml # Voids 2 Height (Feet): 5 Height (Inches): 4.00 Weight (Pounds): 200 Objective General Appearance: WD/WN, lethargic, confused Neck: supple Cardiovascular: normal rate, regular rhythm Respiratory/Chest: chest wall non-tender, lungs clear, normal breath sounds Abdomen: normal bowel sounds, non tender, soft, no organomegaly Edema: no edema noted Arm (L), no edema noted Arm (R), no edema noted Leg (L), no edema noted Leg (R), no edema noted Pedal (L), no edema noted Pedal (R), no edema noted Generalized Neurologic: disoriented, unresponsive, aphasia BREANNE SORIA Jan 22, 2018 09:18
[2018-01-22] MEDS: Docusate 100mg/10ml Liq NG SCH ×2 (09:43→17:55)
[2018-01-22] MEDS: Valproic Acid 250mg/5ml Liquid NG SCH ×2 (09:44→20:34)
[2018-01-22] MEDS: Lacosamide 50mg tablet ORAL SCH ×2 (09:45→20:33)
[2018-01-22] MEDS: Ascorbic Acid 500mg tab GT SCH ×2 (09:45→17:55)
[2018-01-22 12:00] VITALS: BP 138/63
[2018-01-22] MEDS ORDERED: NS 275ml ONE (15:09)
[2018-01-22] MEDS ORDERED: Tubing IV Secondary IV ONE (15:09)
--- NOTE | 2018-01-22 15:33 | General Progress Note ---
Assessment/Plan Assessment/Plan Assessment - GT dislodgement --> 24 FR lynn replaced with 20FR GT catheter - Abdominal breathing with high pressure - OBS - contractures - UTI - h/o DVT - Poor Px Recommendations - Continue TF - watch for GT site leak - Elevte HOB - GT care Subjective Allergies: Coded Allergies: CEFTRIAXONE (Verified Allergy, Unknown, 03/31/17) PENICILLINS (Verified Allergy, Unknown, 03/31/17) SULFA (SULFONAMIDE ANTIBIOTICS) (Verified Allergy, Unknown, 03/31/17) TAZOBACTAM (Verified Allergy, Unknown, 03/31/17) Subjective confused tolerating TF no events overnight some spontanoues movements Objective Last 24 Hour Vital Signs Date Time Temp Pulse Resp B/P (MAP) Pulse Ox O2 Delivery O2 Flow Rate FiO2 01/22/18 12:21 129/69 01/22/18 12:00 97.6 82 19 138/63 98 Nasal Cannula 2.0 97.6 01/22/18 08:00 97.8 87 20 129/69 100 Room Air 97.8 01/22/18 06:00 109/48 01/22/18 04:00 Nasal Cannula 2.0 01/22/18 04:00 96.9 70 20 109/48 99 Nasal Cannula 96.9 01/22/18 00:00 98.5 81 20 127/59 100 Nasal Cannula 98.5 01/22/18 00:00 Nasal Cannula 2.0 01/21/18 23:52 127/59 01/21/18 20:00 97.9 87 20 130/67 99 97.9 01/21/18 20:00 Nasal Cannula 2.0 01/21/18 17:07 101/52 01/21/18 16:07 98.0 75 18 101/52 99 Nasal Cannula 2.0 98.0 Intake and Output 01/21/18 01/22/18 19:00 07:00 Intake Total 835 ml 865 ml Balance 835 ml 865 ml Free Water 120 ml 150 ml Tube Feeding 715 ml 715 ml # Voids 2 Height (Feet): 5 Height (Inches): 4.00 Weight (Pounds): 200 Objective Debilitated WW non purposeful movements NCAT stiff neck/extremities CTA RRR Soft ND abd, (+) GT , minimal leak no edema OBS NAS SCHUMACHER Jan 22, 2018 15:33
[2018-01-22 16:00] VITALS: BP 130/60
[2018-01-22] MEDS: Xarelto 10mg tab GT SCH (16:56)
[2018-01-22 20:00] VITALS: BP 142/64
[2018-01-22] MEDS: Dyna-Hex 2% Top Sol 2oz TOPIC SCH (20:33)
[2018-01-23] VITALS: BP 140/65
[2018-01-23 04:00] VITALS: BP 148/62
[2018-01-23] MEDS: HydrALAZINE 10mg Tab GT SCH ×4 (06:01→23:52)
[2018-01-23 08:00] VITALS: BP 134/60
--- NOTE | 2018-01-23 09:03 | General Progress Note ---
Assessment/Plan Problem List: (1) Paroxysmal atrial fibrillation with rapid ventricular response ICD Codes: I48.0 - Paroxysmal atrial fibrillation SNOMED: 167047988, 166878960308360 (2) UTI (urinary tract infection) ICD Codes: N39.0 - Urinary tract infection, site not specified SNOMED: 20718581 (3) Infection due to drug-resistant organism ICD Codes: Z16.30 - Resistance to unspecified antimicrobial drugs SNOMED: 258526161 (4) Chronic deep vein thrombosis (DVT) ICD Codes: I82.509 - Chronic embolism and thrombosis of unspecified deep veins of unspecified lower extremity SNOMED: 29089949339662772 (5) Seizure disorder ICD Codes: G40.909 - Epilepsy, unspecified, not intractable, without status epilepticus SNOMED: 718673709 Status: stable, progressing Assessment/Plan monitor off abx tube feeds id follow up sz rx monitor labs bowel regime dc planning Subjective ROS Limited/Unobtainable: No Constitutional: Reports: malaise, weakness HEENT: Reports: no symptoms Cardiovascular: Reports: no symptoms Respiratory: Reports: no symptoms Gastrointestinal/Abdominal: Reports: abdomen distended, difficulty swallowing Genitourinary: Reports: no symptoms Neurologic/Psychiatric: Reports: pre-existing deficit, seizure Endocrine: Reports: no symptoms Hematologic/Lymphatic: Reports: no symptoms Allergies: Coded Allergies: CEFTRIAXONE (Verified Allergy, Unknown, 03/31/17) PENICILLINS (Verified Allergy, Unknown, 03/31/17) SULFA (SULFONAMIDE ANTIBIOTICS) (Verified Allergy, Unknown, 03/31/17) TAZOBACTAM (Verified Allergy, Unknown, 03/31/17) All Systems: reviewed and negative except above Subjective no events. confused. no szs. on gt feeds. no vomiting. reviewed am labs. accepted to [facility] Objective Last 24 Hour Vital Signs Date Time Temp Pulse Resp B/P (MAP) Pulse Ox O2 Delivery O2 Flow Rate FiO2 01/23/18 08:00 97.8 89 20 134/60 95 Nasal Cannula 97.8 01/23/18 06:01 148/62 01/23/18 04:00 97.3 87 20 148/62 95 Nasal Cannula 97.3 01/23/18 04:00 Nasal Cannula 2.0 01/23/18 00:00 96.9 73 20 140/65 97 Nasal Cannula 96.9 01/23/18 00:00 Nasal Cannula 2.0 01/22/18 23:33 140/65 01/22/18 20:00 Nasal Cannula 2.0 01/22/18 20:00 97.1 82 20 142/64 94 Nasal Cannula 97.1 01/22/18 18:30 Nasal Cannula 2.0 28 01/22/18 18:30 95 Nasal Cannula 2.0 28 01/22/18 17:55 130/60 01/22/18 16:00 98.7 78 20 130/60 99 Nasal Cannula 2.0 98.7 01/22/18 12:21 129/69 01/22/18 12:00 97.6 82 19 138/63 98 Nasal Cannula 2.0 97.6 01/22/18 09:39 Nasal Cannula 2.0 28 01/22/18 09:38 96 Nasal Cannula 2.0 28 Intake and Output 01/22/18 01/23/18 19:00 07:00 Intake Total 960 ml 865 ml Balance 960 ml 865 ml Free Water 180 ml 150 ml Tube Feeding 780 ml 715 ml # Voids 3 # Bowel Movements 2 Height (Feet): 5 Height (Inches): 4.00 Weight (Pounds): 200 Objective General Appearance: WD/WN, lethargic, confused Neck: supple Cardiovascular: normal rate, regular rhythm Respiratory/Chest: chest wall non-tender, lungs clear, normal breath sounds Abdomen: normal bowel sounds, non tender, soft, no organomegaly Edema: no edema noted Arm (L), no edema noted Arm (R), no edema noted Leg (L), no edema noted Leg (R), no edema noted Pedal (L), no edema noted Pedal (R), no edema noted Generalized Neurologic: disoriented, unresponsive, aphasia BREANNE SORIA Jan 23, 2018 09:03
[2018-01-23] MEDS: Valproic Acid 250mg/5ml Liquid NG SCH ×2 (09:15→20:51)
[2018-01-23] MEDS: Docusate 100mg/10ml Liq NG SCH ×2 (09:15→18:00)
[2018-01-23] MEDS: Lacosamide 50mg tablet ORAL SCH ×2 (09:15→20:51)
[2018-01-23] MEDS: Ascorbic Acid 500mg tab GT SCH ×2 (09:16→18:11)
--- NOTE | 2018-01-23 09:26 | Infectious Diseases Prog Note ---
Assessment/Plan Assessment/Plan A 1. VRE & pseudomonas UTI 2. pneumonia 3. multiple sclerosis 4. quadriplegia 5. seizures P 1. observe off antibiotic 2. Discontinue PICC line at time of discharge Subjective ROS Limited/Unobtainable: Yes Allergies: Coded Allergies: CEFTRIAXONE (Verified Allergy, Unknown, 03/31/17) PENICILLINS (Verified Allergy, Unknown, 03/31/17) SULFA (SULFONAMIDE ANTIBIOTICS) (Verified Allergy, Unknown, 03/31/17) TAZOBACTAM (Verified Allergy, Unknown, 03/31/17) Objective Vital Signs Last 24 Hour Vital Signs Date Time Temp Pulse Resp B/P (MAP) Pulse Ox O2 Delivery O2 Flow Rate FiO2 01/23/18 08:00 97.8 89 20 134/60 95 Nasal Cannula 97.8 01/23/18 06:01 148/62 01/23/18 04:00 97.3 87 20 148/62 95 Nasal Cannula 97.3 01/23/18 04:00 Nasal Cannula 2.0 01/23/18 00:00 96.9 73 20 140/65 97 Nasal Cannula 96.9 01/23/18 00:00 Nasal Cannula 2.0 01/22/18 23:33 140/65 01/22/18 20:00 Nasal Cannula 2.0 01/22/18 20:00 97.1 82 20 142/64 94 Nasal Cannula 97.1 01/22/18 18:30 Nasal Cannula 2.0 28 01/22/18 18:30 95 Nasal Cannula 2.0 28 01/22/18 17:55 130/60 01/22/18 16:00 98.7 78 20 130/60 99 Nasal Cannula 2.0 98.7 01/22/18 12:21 129/69 01/22/18 12:00 97.6 82 19 138/63 98 Nasal Cannula 2.0 97.6 01/22/18 09:39 Nasal Cannula 2.0 28 01/22/18 09:38 96 Nasal Cannula 2.0 28 Height (Feet): 5 Height (Inches): 4.00 Weight (Pounds): 200 General Appearance: no acute distress HEENT: mucous membranes moist Respiratory/Chest: lungs clear Cardiovascular: normal rate, other - R arm PICC line Extremities: no edema Neurologic/Psychiatric: aphasia Current Medications Medications (Trade) Dose Ordered Sig/Reji Route PRN Reason Start Time Stop Time Status Last Admin Dose Admin Acetaminophen (Tylenol) 650 mg Q4H PRN ORAL Mild Pain/Temp > 100.5 01/18/18 22:00 02/10/18 21:59 Ascorbic Acid (Vitamin C) 500 mg BID GT 01/19/18 09:00 02/11/18 08:59 01/23/18 09:16 Bisacodyl (Dulcolax) 10 mg DAILYPRN PRN RECTAL Persistent Constipation 01/18/18 22:00 02/17/18 21:59 Chlorhexidine Gluconate (Sheela-Hex 2%) 1 applic DAILY@1999 TOPIC 01/19/18 20:00 02/16/18 19:59 01/22/18 20:33 Docusate Sodium (Colace) 100 mg TWICE A DAY NG 01/19/18 09:00 02/12/18 17:59 01/23/18 09:15 Famotidine (Pepcid) 20 mg DAILY GT 01/19/18 09:00 02/11/18 08:59 01/23/18 09:16 Hydralazine HCl (Apresoline) 10 mg EVERY 6 HOURS GT 01/19/18 00:00 02/11/18 00:00 01/23/18 06:01 Lacosamide (Vimpat) 50 mg Q12HR ORAL 01/18/18 22:00 02/11/18 21:59 01/23/18 09:15 Lansoprazole (Prevacid) 30 mg DAILY GT 01/19/18 09:00 02/11/18 08:59 01/23/18 09:16 Levothyroxine Sodium (Synthroid) 100 mcg ACBREAKFAST GT 01/19/18 06:30 02/11/18 06:29 01/23/18 06:01 Magnesium Hydroxide (Mom) 30 ml TIDPRN PRN GT Constipation 01/18/18 22:00 02/10/18 21:59 01/22/18 21:59 Rivaroxaban (Xarelto) 20 mg QPM GT 01/19/18 21:30 02/18/18 21:29 01/22/18 16:56 Valproic Acid (Depakene) 1,000 mg EVERY 12 HOURS NG 01/18/18 22:00 02/11/18 21:59 01/23/18 09:15 PARDEEP IRVING Jan 23, 2018 09:26
[2018-01-23 10:43] LABS: BASOPHILS % (AUTO) 0.6 % (0.0-2.0); HEMATOCRIT 28.7 % (37.0-47.0); HEMOGLOBIN 8.8 G/DL (12.0-16.0); LYMPHOCYTES % (AUTO) 19.6 % (20.0-45.0); MEAN CORPUSCULAR VOLUME 103 FL (80-99); MONOCYTES % (AUTO) 5.9 % (1.0-10.0); NEUTROPHILS % (AUTO) 71.9 % (45.0-75.0); PLATELET COUNT 213 K/UL (150-450); RED BLOOD COUNT 2.78 M/UL (4.20-5.40); RED CELL DISTRIBUTION WIDTH 15.3 % (11.6-14.8); WHITE BLOOD COUNT 5.5 K/UL (4.8-10.8)
[2018-01-23 10:55] LABS: ALANINE AMINOTRANSFERASE < 6 U/L (12-78); ALBUMIN 2.3 G/DL (3.4-5.0); ALBUMIN/GLOBULIN RATIO 0.4 (1.0-2.7); ALKALINE PHOSPHATASE 59 U/L (46-116); ANION GAP 1 mmol/L (5-15); ASPARTATE AMINO TRANSFERASE 11 U/L (15-37); BILIRUBIN,TOTAL 0.1 MG/DL (0.2-1.0); BLOOD UREA NITROGEN 19 mg/dL (7-18); CALCIUM 8.7 MG/DL (8.5-10.1); CARBON DIOXIDE 37 MMOL/L (21-32); CHLORIDE 105 MMOL/L (98-107); CREATININE 0.4 MG/DL (0.55-1.30); POTASSIUM 4.2 MMOL/L (3.5-5.1); SODIUM 143 MMOL/L (136-145)
[2018-01-23 12:00] VITALS: BP 145/61
--- NOTE | 2018-01-23 15:20 | General Progress Note ---
Assessment/Plan Assessment/Plan Assessment - GT dislodgement --> 24 FR lynn replaced with 20FR GT catheter - Abdominal breathing with high pressure - OBS - contractures - UTI - h/o DVT - Poor Px Recommendations - Continue TF - watch for GT site leak - Elevte HOB - GT care Subjective Allergies: Coded Allergies: CEFTRIAXONE (Verified Allergy, Unknown, 03/31/17) PENICILLINS (Verified Allergy, Unknown, 03/31/17) SULFA (SULFONAMIDE ANTIBIOTICS) (Verified Allergy, Unknown, 03/31/17) TAZOBACTAM (Verified Allergy, Unknown, 03/31/17) Subjective confused tolerating TF no events overnight Objective Last 24 Hour Vital Signs Date Time Temp Pulse Resp B/P (MAP) Pulse Ox O2 Delivery O2 Flow Rate FiO2 01/23/18 12:09 145/61 01/23/18 12:00 98.1 79 20 145/61 95 Nasal Cannula 98.1 01/23/18 08:00 97.8 89 20 134/60 95 Nasal Cannula 97.8 01/23/18 06:01 148/62 01/23/18 04:00 97.3 87 20 148/62 95 Nasal Cannula 97.3 01/23/18 04:00 Nasal Cannula 2.0 01/23/18 00:00 96.9 73 20 140/65 97 Nasal Cannula 96.9 01/23/18 00:00 Nasal Cannula 2.0 01/22/18 23:33 140/65 01/22/18 20:00 Nasal Cannula 2.0 01/22/18 20:00 97.1 82 20 142/64 94 Nasal Cannula 97.1 01/22/18 18:30 Nasal Cannula 2.0 28 01/22/18 18:30 95 Nasal Cannula 2.0 28 01/22/18 17:55 130/60 01/22/18 16:00 98.7 78 20 130/60 99 Nasal Cannula 2.0 98.7 Intake and Output 01/22/18 01/23/18 19:00 07:00 Intake Total 960 ml 865 ml Balance 960 ml 865 ml Free Water 180 ml 150 ml Tube Feeding 780 ml 715 ml # Voids 3 # Bowel Movements 2 Laboratory Tests 01/23/18 10:00: White Blood Count 5.5, Red Blood Count 2.78L, Hemoglobin 8.8L, Hematocrit 28.7L , Mean Corpuscular Volume 103H, Mean Corpuscular Hemoglobin 31.6H, Mean Corpuscular Hemoglobin Concent 30.6L, Red Cell Distribution Width 15.3H, Platelet Count 213, Mean Platelet Volume 7.2, Neutrophils (%) (Auto) 71.9, Lymphocytes (%) (Auto) 19.6L, Monocytes (%) (Auto) 5.9, Eosinophils (%) (Auto) 2.0, Basophils (%) (Auto) 0.6, Sodium Level 143, Potassium Level 4.2, Chloride Level 105, Carbon Dioxide Level 37H, Anion Gap 1L, Blood Urea Nitrogen 19H, Creatinine 0.4L, Estimat Glomerular Filtration Rate , Glucose Level 103, Calcium Level 8.7, Total Bilirubin 0.1L, Aspartate Amino Transf (AST/SGOT) 11L, Alanine Aminotransferase (ALT/SGPT) < 6L, Alkaline Phosphatase 59, Total Protein 7.6, Albumin 2.3L, Globulin 5.3, Albumin/Globulin Ratio 0.4L Height (Feet): 5 Height (Inches): 4.00 Weight (Pounds): 200 Objective Debilitated WW non purposeful movements NCAT stiff neck/extremities CTA RRR Soft ND abd, (+) GT , minimal leak no edema OBS NAS SCHUMACHER Jan 23, 2018 15:20
[2018-01-23 16:00] VITALS: BP 138/65
--- NOTE | 2018-01-23 18:06 | Wound Care Consultation ---
Wound Assessment Wound Assessment : Wound Number: 1 Wound Present on Admission: Yes New Wound: No Status Change of Wound: No Wound Location Body Site Modif: right, dorsal Wound Location Body Site: foot Wound Type: lesion-etiology unknown Anya Test: Does not Anya Wound Thickness: Full Thickness Wound Length: 3.5 Wound Width: 3.0 Percent of Wound Bed Yellow/Wh: 100 - dry yellow Wound Drainage Amount: None Wound Drainage Odor: None/Absent Tissue Surrounding Wound: Intact Wound Comment #1 Right Dorsal foot two open wound sites etiology unknown. Good progress noted. Noted with dry yellow scab adhered to wound bed. Recommendation -Local wound care per protocol -Keep clean and dry -Offload both heels -Heel protector on both heels -Low air loss mattress -Assess and f/u accordingly for any changes MICHELLE RAPP RN Jan 23, 2018 18:06
[2018-01-23] MEDS: Xarelto 10mg tab GT SCH (18:12)
[2018-01-23 20:00] VITALS: BP 114/72
[2018-01-23] MEDS: Dyna-Hex 2% Top Sol 2oz TOPIC SCH (20:51)
[2018-01-24 00:25] VITALS: BP 121/58
[2018-01-24 04:00] VITALS: BP 153/69
[2018-01-24] MEDS: HydrALAZINE 10mg Tab GT SCH ×3 (05:53→17:35)
[2018-01-24 08:00] VITALS: BP 148/65
--- NOTE | 2018-01-24 08:40 | General Progress Note ---
Assessment/Plan Problem List: (1) Paroxysmal atrial fibrillation with rapid ventricular response ICD Codes: I48.0 - Paroxysmal atrial fibrillation SNOMED: 930536184, 929934395150359 (2) UTI (urinary tract infection) ICD Codes: N39.0 - Urinary tract infection, site not specified SNOMED: 80857855 (3) Infection due to drug-resistant organism ICD Codes: Z16.30 - Resistance to unspecified antimicrobial drugs SNOMED: 796934538 (4) Chronic deep vein thrombosis (DVT) ICD Codes: I82.509 - Chronic embolism and thrombosis of unspecified deep veins of unspecified lower extremity SNOMED: 72413413510972470 (5) Seizure disorder ICD Codes: G40.909 - Epilepsy, unspecified, not intractable, without status epilepticus SNOMED: 505135333 Status: stable, progressing Assessment/Plan monitor off abx tube feeds id follow up sz rx monitor labs/hgb bowel regime dc planning Subjective ROS Limited/Unobtainable: Yes Constitutional: Reports: malaise, weakness HEENT: Reports: no symptoms Cardiovascular: Reports: no symptoms Respiratory: Reports: cough Gastrointestinal/Abdominal: Reports: abdomen distended, difficulty swallowing Genitourinary: Reports: no symptoms Neurologic/Psychiatric: Reports: pre-existing deficit, seizure Endocrine: Reports: no symptoms Hematologic/Lymphatic: Reports: no symptoms Allergies: Coded Allergies: CEFTRIAXONE (Verified Allergy, Unknown, 03/31/17) PENICILLINS (Verified Allergy, Unknown, 03/31/17) SULFA (SULFONAMIDE ANTIBIOTICS) (Verified Allergy, Unknown, 03/31/17) TAZOBACTAM (Verified Allergy, Unknown, 03/31/17) All Systems: reviewed and negative except above Subjective no events. confused. no szs. on gt feeds. no vomiting. reviewed am labs. accepted to [facility]. h/h noted. no bleeding Objective Last 24 Hour Vital Signs Date Time Temp Pulse Resp B/P (MAP) Pulse Ox O2 Delivery O2 Flow Rate FiO2 01/24/18 08:00 98.1 88 21 148/65 95 Nasal Cannula 2.0 98.1 01/24/18 05:53 153/69 01/24/18 04:00 Nasal Cannula 2.0 01/24/18 04:00 97.4 80 20 153/69 100 Nasal Cannula 2.0 97.4 4/9/18 00:25 97.8 61 22 121/58 99 Nasal Cannula 2.0 97.8 01/24/18 00:00 Nasal Cannula 2.0 01/23/18 23:52 121/58 01/23/18 20:00 Nasal Cannula 2.0 01/23/18 20:00 98.3 84 24 114/72 96 Nasal Cannula 2.0 98.3 01/23/18 18:12 138/65 01/23/18 16:00 98.5 84 20 138/65 95 Nasal Cannula 98.5 01/23/18 12:09 145/61 01/23/18 12:00 98.1 79 20 145/61 95 Nasal Cannula 98.1 Intake and Output 01/23/18 01/24/18 19:00 07:00 Intake Total 130 ml 865 ml Output Total 750 ml 300 ml Balance -620 ml 565 ml Free Water 150 ml Tube Feeding 130 ml 715 ml Output Urine Total 750 ml 300 ml # Voids 2 # Bowel Movements 6 Laboratory Tests 01/23/18 10:00: White Blood Count 5.5, Red Blood Count 2.78L, Hemoglobin 8.8L, Hematocrit 28.7L , Mean Corpuscular Volume 103H, Mean Corpuscular Hemoglobin 31.6H, Mean Corpuscular Hemoglobin Concent 30.6L, Red Cell Distribution Width 15.3H, Platelet Count 213, Mean Platelet Volume 7.2, Neutrophils (%) (Auto) 71.9, Lymphocytes (%) (Auto) 19.6L, Monocytes (%) (Auto) 5.9, Eosinophils (%) (Auto) 2.0, Basophils (%) (Auto) 0.6, Sodium Level 143, Potassium Level 4.2, Chloride Level 105, Carbon Dioxide Level 37H, Anion Gap 1L, Blood Urea Nitrogen 19H, Creatinine 0.4L, Estimat Glomerular Filtration Rate , Glucose Level 103, Calcium Level 8.7, Total Bilirubin 0.1L, Aspartate Amino Transf (AST/SGOT) 11L, Alanine Aminotransferase (ALT/SGPT) < 6L, Alkaline Phosphatase 59, Total Protein 7.6, Albumin 2.3L, Globulin 5.3, Albumin/Globulin Ratio 0.4L Height (Feet): 5 Height (Inches): 4.00 Weight (Pounds): 200 Objective General Appearance: WD/WN, lethargic, confused Neck: supple Cardiovascular: normal rate, regular rhythm Respiratory/Chest: chest wall non-tender, lungs clear, normal breath sounds Abdomen: normal bowel sounds, non tender, soft, no organomegaly Edema: no edema noted Arm (L), no edema noted Arm (R), no edema noted Leg (L), no edema noted Leg (R), no edema noted Pedal (L), no edema noted Pedal (R), no edema noted Generalized Neurologic: disoriented, unresponsive, aphasia BREANNE SORIA Jan 24, 2018 08:40
[2018-01-24] MEDS: Docusate 100mg/10ml Liq NG SCH ×2 (09:04→17:35)
[2018-01-24] MEDS: Valproic Acid 250mg/5ml Liquid NG SCH ×2 (09:04→20:30)
[2018-01-24] MEDS: Lacosamide 50mg tablet ORAL SCH ×2 (09:04→20:30)
[2018-01-24] MEDS: Ascorbic Acid 500mg tab GT SCH ×2 (09:05→17:35)
--- NOTE | 2018-01-24 11:50 | Infectious Diseases Prog Note ---
"Assessment/Plan Assessment/Plan antibiotics : none A 1. VRE | pseudomonas UTI s/p rx 3. multiple sclerosis 4. quadriplegia 5. seizures P 1. observe off antibiotics Subjective ROS Limited/Unobtainable: Yes Allergies: Coded Allergies: CEFTRIAXONE (Verified Allergy, Unknown, 03/31/17) PENICILLINS (Verified Allergy, Unknown, 03/31/17) SULFA (SULFONAMIDE ANTIBIOTICS) (Verified Allergy, Unknown, 03/31/17) TAZOBACTAM (Verified Allergy, Unknown, 03/31/17) Objective Vital Signs Last 24 Hour Vital Signs Date Time Temp Pulse Resp B/P (MAP) Pulse Ox O2 Delivery O2 Flow Rate FiO2 01/24/18 08:00 98.1 88 21 148/65 95 Nasal Cannula 2.0 98.1 01/24/18 05:53 153/69 01/24/18 04:00 Nasal Cannula 2.0 01/24/18 04:00 97.4 80 20 153/69 100 Nasal Cannula 2.0 97.4 01/24/18 00:25 97.8 61 22 121/58 99 Nasal Cannula 2.0 97.8 01/24/18 00:00 Nasal Cannula 2.0 01/23/18 23:52 121/58 01/23/18 20:00 Nasal Cannula 2.0 01/23/18 20:00 98.3 84 24 114/72 96 Nasal Cannula 2.0 98.3 01/23/18 18:12 138/65 01/23/18 16:00 98.5 84 20 138/65 95 Nasal Cannula 98.5 01/23/18 12:09 145/61 01/23/18 12:00 98.1 79 20 145/61 95 Nasal Cannula 98.1 Height (Feet): 5 Height (Inches): 4.00 Weight (Pounds): 200 Respiratory/Chest: lungs clear Cardiovascular: normal rate, regular rhythm, no gallop/murmur Abdomen: soft, non tender, other - GT Extremities: other - + edema KAMRAN GUTIERREZ Jan 24, 2018 11:50"
[2018-01-24 12:00] VITALS: BP 153/60
--- NOTE | 2018-01-24 12:42 | General Progress Note ---
Assessment/Plan Assessment/Plan Assessment - GT dislodgement --> 24 FR lynn replaced with 20FR GT catheter - Abdominal breathing with high pressure - OBS - contractures - UTI - h/o DVT - Poor Px Recommendations - Continue TF - watch for GT site leak - Elevte HOB - GT care Subjective Allergies: Coded Allergies: CEFTRIAXONE (Verified Allergy, Unknown, 03/31/17) PENICILLINS (Verified Allergy, Unknown, 03/31/17) SULFA (SULFONAMIDE ANTIBIOTICS) (Verified Allergy, Unknown, 03/31/17) TAZOBACTAM (Verified Allergy, Unknown, 03/31/17) Subjective above noted confused tolerating TF no events overnight Objective Last 24 Hour Vital Signs Date Time Temp Pulse Resp B/P (MAP) Pulse Ox O2 Delivery O2 Flow Rate FiO2 01/24/18 12:02 153/60 01/24/18 12:00 98.3 91 18 153/60 97 Nasal Cannula 2.0 98.3 01/24/18 08:00 98.1 88 21 148/65 95 Nasal Cannula 2.0 98.1 01/24/18 05:53 153/69 01/24/18 04:00 Nasal Cannula 2.0 01/24/18 04:00 97.4 80 20 153/69 100 Nasal Cannula 2.0 97.4 01/24/18 00:25 97.8 61 22 121/58 99 Nasal Cannula 2.0 97.8 01/24/18 00:00 Nasal Cannula 2.0 01/23/18 23:52 121/58 01/23/18 20:00 Nasal Cannula 2.0 01/23/18 20:00 98.3 84 24 114/72 96 Nasal Cannula 2.0 98.3 01/23/18 18:12 138/65 01/23/18 16:00 98.5 84 20 138/65 95 Nasal Cannula 98.5 Intake and Output 01/23/18 01/24/18 19:00 07:00 Intake Total 130 ml 865 ml Output Total 750 ml 300 ml Balance -620 ml 565 ml Free Water 150 ml Tube Feeding 130 ml 715 ml Output Urine Total 750 ml 300 ml # Voids 2 # Bowel Movements 6 Height (Feet): 5 Height (Inches): 4.00 Weight (Pounds): 200 Objective Debilitated WW non purposeful movements NCAT stiff neck/extremities CTA RRR Soft ND abd, (+) GT , minimal leak no edema OBS NAS SCHUMACHER Jan 24, 2018 12:42
[2018-01-24 16:00] VITALS: BP 129/57
[2018-01-24] MEDS: Xarelto 10mg tab GT SCH (16:37)
[2018-01-24 20:00] VITALS: BP_SYST 135; BP_SYST 170; BP_DIAS 55; BP_DIAS 79
[2018-01-24] MEDS: Dyna-Hex 2% Top Sol 2oz TOPIC SCH (20:29)
[2018-01-25] VITALS: BP 128/75
[2018-01-25 04:00] VITALS: BP 156/73
[2018-01-25] MEDS: HydrALAZINE 10mg Tab GT SCH ×3 (06:03→12:59)
--- NOTE | 2018-01-25 07:24 | General Progress Note ---
Assessment/Plan Problem List: (1) Paroxysmal atrial fibrillation with rapid ventricular response ICD Codes: I48.0 - Paroxysmal atrial fibrillation SNOMED: 042522258, 804316827058245 (2) UTI (urinary tract infection) ICD Codes: N39.0 - Urinary tract infection, site not specified SNOMED: 07204971 (3) Infection due to drug-resistant organism ICD Codes: Z16.30 - Resistance to unspecified antimicrobial drugs SNOMED: 062284561 (4) Chronic deep vein thrombosis (DVT) ICD Codes: I82.509 - Chronic embolism and thrombosis of unspecified deep veins of unspecified lower extremity SNOMED: 38827662893631841 (5) Seizure disorder ICD Codes: G40.909 - Epilepsy, unspecified, not intractable, without status epilepticus SNOMED: 475512917 Status: stable, progressing Assessment/Plan monitor off abx tube feeds id follow up sz rx monitor labs/hgb bowel regime dc planning difficult placement without any insurance Subjective ROS Limited/Unobtainable: Yes Constitutional: Reports: malaise, weakness HEENT: Reports: no symptoms Cardiovascular: Reports: no symptoms Respiratory: Reports: cough Gastrointestinal/Abdominal: Reports: abdomen distended, difficulty swallowing Genitourinary: Reports: no symptoms Neurologic/Psychiatric: Reports: pre-existing deficit, seizure Endocrine: Reports: no symptoms Hematologic/Lymphatic: Reports: no symptoms Allergies: Coded Allergies: CEFTRIAXONE (Verified Allergy, Unknown, 03/31/17) PENICILLINS (Verified Allergy, Unknown, 03/31/17) SULFA (SULFONAMIDE ANTIBIOTICS) (Verified Allergy, Unknown, 03/31/17) TAZOBACTAM (Verified Allergy, Unknown, 03/31/17) All Systems: reviewed and negative except above Subjective no events. confused. no szs. on gt feeds. no vomiting. reviewed am labs. pt has no medicare days and medical has ? Objective Last 24 Hour Vital Signs Date Time Temp Pulse Resp B/P (MAP) Pulse Ox O2 Delivery O2 Flow Rate FiO2 01/25/18 06:03 156/73 01/25/18 04:00 98.4 94 22 156/73 96 98.4 01/25/18 00:00 98.4 93 20 128/75 97 98.4 01/25/18 00:00 128/75 01/24/18 20:00 99.1 113 22 170/79 94 99.1 01/24/18 17:35 127/66 01/24/18 16:00 98.8 91 19 129/57 96 Nasal Cannula 2.0 98.8 01/24/18 12:02 153/60 01/24/18 12:00 98.3 91 18 153/60 97 Nasal Cannula 2.0 98.3 01/24/18 08:00 98.1 88 21 148/65 95 Nasal Cannula 2.0 98.1 Intake and Output 01/24/18 01/25/18 19:00 07:00 Intake Total 685 ml 800 ml Output Total 200 ml Balance 485 ml 800 ml Free Water 100 ml 150 ml Tube Feeding 585 ml 650 ml Output Urine Total 200 ml # Bowel Movements 1 Height (Feet): 5 Height (Inches): 4.00 Weight (Pounds): 200 Objective General Appearance: WD/WN, lethargic, confused Neck: supple Cardiovascular: normal rate, regular rhythm Respiratory/Chest: chest wall non-tender, lungs clear, normal breath sounds Abdomen: normal bowel sounds, non tender, soft, no organomegaly Edema: no edema noted Arm (L), no edema noted Arm (R), no edema noted Leg (L), no edema noted Leg (R), no edema noted Pedal (L), no edema noted Pedal (R), no edema noted Generalized Neurologic: disoriented, unresponsive, aphasia BREANNE SORIA Jan 25, 2018 07:24
[2018-01-25 08:00] VITALS: BP 119/89
[2018-01-25] MEDS: Lacosamide 50mg tablet ORAL SCH (09:31)
[2018-01-25] MEDS: Ascorbic Acid 500mg tab GT SCH (09:31)
[2018-01-25] MEDS: Docusate 100mg/10ml Liq NG SCH (09:32)
[2018-01-25] MEDS: Valproic Acid 250mg/5ml Liquid NG SCH (09:32)
--- NOTE | 2018-01-25 10:46 | Infectious Diseases Prog Note ---
"Assessment/Plan Assessment/Plan antibiotics : none A 1. VRE | pseudomonas UTI s/p rx 3. multiple sclerosis 4. quadriplegia 5. seizures 6. rectal VRE colonization P 1. observe off antibiotics Subjective Constitutional: Denies: fever, chills Respiratory: Denies: shortness of breath, dry cough Gastrointestinal/Abdominal: Denies: nausea, vomiting, diarrhea Musculoskeletal: Denies: pain Allergies: Coded Allergies: CEFTRIAXONE (Verified Allergy, Unknown, 03/31/17) PENICILLINS (Verified Allergy, Unknown, 03/31/17) SULFA (SULFONAMIDE ANTIBIOTICS) (Verified Allergy, Unknown, 03/31/17) TAZOBACTAM (Verified Allergy, Unknown, 03/31/17) Objective Vital Signs Last 24 Hour Vital Signs Date Time Temp Pulse Resp B/P (MAP) Pulse Ox O2 Delivery O2 Flow Rate FiO2 01/25/18 08:00 98.0 84 18 119/89 94 98.0 01/25/18 06:03 156/73 01/25/18 04:00 98.4 94 22 156/73 96 98.4 01/25/18 00:00 98.4 93 20 128/75 97 98.4 01/25/18 00:00 128/75 01/24/18 20:00 99.1 113 22 170/79 94 99.1 01/24/18 17:35 127/66 01/24/18 16:00 98.8 91 19 129/57 96 Nasal Cannula 2.0 98.8 01/24/18 12:02 153/60 01/24/18 12:00 98.3 91 18 153/60 97 Nasal Cannula 2.0 98.3 Height (Feet): 5 Height (Inches): 4.00 Weight (Pounds): 200 Respiratory/Chest: lungs clear Cardiovascular: normal rate, regular rhythm, no gallop/murmur Abdomen: soft, non tender, other - GT Extremities: other - + edema, right arm PICC Current Medications Medications (Trade) Dose Ordered Sig/Reji Route PRN Reason Start Time Stop Time Status Last Admin Dose Admin Acetaminophen (Tylenol) 650 mg Q4H PRN ORAL Mild Pain/Temp > 100.5 01/18/18 22:00 02/10/18 21:59 Ascorbic Acid (Vitamin C) 500 mg BID GT 01/19/18 09:00 02/11/18 08:59 01/25/18 09:31 Bisacodyl (Dulcolax) 10 mg DAILYPRN PRN RECTAL Persistent Constipation 01/18/18 22:00 02/17/18 21:59 Chlorhexidine Gluconate (Sheela-Hex 2%) 1 applic DAILY@2000 TOPIC 01/19/18 20:00 02/16/18 19:59 01/24/18 20:29 Docusate Sodium (Colace) 100 mg TWICE A DAY NG 01/19/18 09:00 02/12/18 17:59 01/25/18 09:32 Famotidine (Pepcid) 20 mg DAILY GT 01/19/18 09:00 02/11/18 08:59 01/25/18 09:31 Hydralazine HCl (Apresoline) 10 mg EVERY 6 HOURS GT 01/19/18 00:00 02/11/18 00:00 01/25/18 06:03 Lacosamide (Vimpat) 50 mg Q12HR ORAL 01/18/18 22:00 02/11/18 21:59 01/25/18 09:31 Lansoprazole (Prevacid) 30 mg DAILY GT 01/19/18 09:00 02/11/18 08:59 01/25/18 09:31 Levothyroxine Sodium (Synthroid) 100 mcg ACBREAKFAST GT 01/19/18 06:30 02/11/18 06:29 01/25/18 06:03 Magnesium Hydroxide (Mom) 30 ml TIDPRN PRN GT Constipation 01/18/18 22:00 02/10/18 21:59 01/22/18 21:59 Rivaroxaban (Xarelto) 20 mg QPM GT 01/19/18 21:30 02/18/18 21:29 01/24/18 16:37 Valproic Acid (Depakene) 1,000 mg EVERY 12 HOURS NG 01/18/18 22:00 02/11/18 21:59 01/25/18 09:32 KAMRAN GUTIERREZ Jan 25, 2018 10:46"
[2018-01-25 12:00] VITALS: BP 125/79
[2018-01-25 12:59] VITALS: BP 125/79
--- NOTE | 2018-01-25 17:30 | Discharge Summary ---
DATE OF ADMISSION: 01/11/2018 DATE OF DISCHARGE: 01/25/2018 ADMISSION DIAGNOSES: 1. Sepsis. 2. UTI. 3. Seizure disorder. 4. Toxic metabolic encephalopathy, possible sepsis. 5. Dysphagia. DISCHARGE DIAGNOSES: 1. Sepsis. 2. UTI. 3. Seizure disorder. 4. Toxic metabolic encephalopathy, possible sepsis. 5. Dysphagia. HOSPITAL COURSE: The patient is a pleasant but unfortunate female with history of encephalopathy, developmental delay, seizure disorder. She presented with complaints of sepsis secondary to UTI and pneumonia. She received broad-spectrum IV antibiotic therapy. Cardiology and Infectious Disease consultations were obtained. The patient was continued on seizure medications and G-tube feeds. Hospital course was complicated by possible clogging and dislodgement of the G-tube. This was replaced on several occasions. The patient's course was also prolonged because of difficulty with placement. Apparently, her Medi-Dinh had lapsed and she could not be placed. After discussing with the patient's prior detention, they did agree to take the patient back. DISCHARGE MEDICATIONS: Please see discharge medication list for discharge medications. DIET: G-tube feedings. ACTIVITIES: Ad-yong. FOLLOWUP: The patient will be followed at the [facility] facility in one to two days. Caden Recio M.D. DR: Lloyd JOB#: [id number] CC:
== END 2018-01-25 14:25 | DRG 871 ==
LOC: EDBD 15:00 → EMR 15:11 → 2E 17:44 → EDBEDREQ 19:07 → 4E 01-18 21:00
PROC: 0D20XUZ Change Feeding Device in Upper Intestinal Tract, External Approach (ICD-10-PCS; principal; 2018-01-14)
PROC: 02HV33Z Insertion of Infusion Device into Superior Vena Cava, Percutaneous Approach (ICD-10-PCS; 2018-01-17)
PROC: B518ZZA Fluoroscopy of Superior Vena Cava, Guidance (ICD-10-PCS; 2018-01-17)
DX: A41.9 Sepsis, unspecified organism (principal); G92 Toxic encephalopathy; R53.2 Functional quadriplegia; J15.1 Pneumonia due to Pseudomonas; I50.33 Acute on chronic diastolic (congestive) heart failure; N39.0 Urinary tract infection, site not specified; I82.509 Chronic embolism and thrombosis of unspecified deep veins of unspecified lower extremity; L03.115 Cellulitis of right lower limb; E87.3 Alkalosis; E87.1 Hypo-osmolality and hyponatremia; D68.9 Coagulation defect, unspecified; E44.0 Moderate protein-calorie malnutrition; Z93.1 Gastrostomy status; G35 Multiple sclerosis; R13.10 Dysphagia, unspecified; I48.0 Paroxysmal atrial fibrillation; B95.2 Enterococcus as the cause of diseases classified elsewhere; Z16.21 Resistance to vancomycin; E03.9 Hypothyroidism, unspecified; E86.0 Dehydration; Z68.34 Body mass index [BMI] 34.0-34.9, adult; E87.6 Hypokalemia
CPT/HCPCS: 36415; 36569; 71045; 74018; 76937; 80048; 80053; 80170; 81003; 82270; 82550; 82553; 82746; 83540; 83550; 83605; 83735; 83880; 84100; 84443; 84484; 85025; 87040; 87081; 87086; 87181; 93005; 93971; 94640; 94664; 94760; 99285; J8499

== ENCOUNTER 2018-02-26 07:49 | Inpatient (IN) | payer MEDICARE ==
[~2018-02-26] VITALS: Ht 157.5 cm; Wt 99.8 kg
[~2018-02-26 07:49] MED LIST changes: +IPRATROPIU0.2 MG/1 M HHN; +OMEPRAZOLE20 M3 GT; +VITAMIN C500 M1 ORAL; +XARELTO10 MG GT
[2018-02-26] MEDS ORDERED: Cefepime HCl 1 GM in NS 55 ML IV SCH (08:00)
[2018-02-26] MEDS ORDERED: Vancomycin 1 GM in NS 275 ML IV ONE (08:00)
[2018-02-26] MEDS ORDERED: VITAMIN C500 M1 GT (08:01)
[2018-02-26] MEDS ORDERED: XARELTO10 MG GT (08:01)
--- NOTE | 2018-02-26 08:11 | Emergency Room Report ---
History of Present Illness General Chief Complaint: Malfunctioning Gastric Tube Source: Medical Record, EMS Present Illness HPI This patient presents from a shelter facility. She is here because her G-tube has been leaking. She also is here because she has a fever of 101. The patient is nonverbal and alert and oriented 0 at baseline. This patient has a history of epilepsy, GERD, hypothyroidism, hypertension, atrial fibrillation, CVA. The patient is PEG tube dependent. There is no other history available. Allergies: Coded Allergies: CEFTRIAXONE (Verified Allergy, Unknown, 03/31/17) PENICILLINS (Verified Allergy, Unknown, 03/31/17) SULFA (SULFONAMIDE ANTIBIOTICS) (Verified Allergy, Unknown, 03/31/17) TAZOBACTAM (Verified Allergy, Unknown, 03/31/17) Uncoded Allergies: SULFA ANTIBIOTICS (Allergy, Unknown, 02/26/18) Patient History Past Medical History: see triage record, old chart reviewed, HTN, CAD, AFib, GERD, CVA/TIA, dementia, seizures Social History: Denies: smoking, alcohol use, drug use Reviewed Nursing Documentation: PMH: Agreed; PSxH: Agreed Nursing Documentation-PMH Past Medical History: No History, Except For Hx Cardiac Problems: Yes - AFIB, Sepsis, UTI, Contracture Hx Hypertension: Yes Hx Cancer: No Hx Gastrointestinal Problems: Yes - GERD Hx Neurological Problems: Yes - functional quadriplegia Hx Encephalitis: Yes Hx Multiple Sclerosis: Yes Hx Memory Loss: Yes Hx Concentration Difficulty: Yes Hx Speech Problem: Yes Hx Aphasia: Yes Review of Systems All Other Systems: limited Physical Exam Vital Signs Date Time Temp Pulse Resp B/P (MAP) Pulse Ox O2 Delivery O2 Flow Rate FiO2 02/26/18 07:47 100 30 116/39 98 Nasal Cannula 3.0 Sp02 EP Interpretation: reviewed, normal General Appearance: no apparent distress, obese, other - Sleeping Head: normocephalic, atraumatic ENT: normal pharynx, no angioedema, other - Dry cracked lips. Neck: full range of motion, supple/symm/no masses Respiratory: no respiratory distress, no retraction, no accessory muscle use, rhonchi - bilateral rhonchi Cardiovascular #1: regular rate, rhythm, no edema Gastrointestinal: soft, no guarding, no rebound, other - G-tube in place Rectal: deferred Musculoskeletal: other - contracted Neurologic: other - Non-verbal, unresponsive at baseline. Skin: warm/dry, other - See RN skin exam Medical Decision Making Diagnostic Impression: Primary Impression: Sepsis Additional Impressions: Malfunction of gastrostomy tube Pyelonephritis Fever ER Course This patient presents with a temp of 102. She also has findings consistent with pyelonephritis. She was given broad-spectrum antibiotics and aggressive IV fluid resuscitation. The patient did have a normal blood pressure and oxygen saturation throughout her ED course. Given the patient's chronic medical conditions and temp, I felt that this patient should be admitted to the ICU step down for concern that she could deteriorate rapidly. This patient is critically ill. This patient required complex medical decision- making, aggressive intervention, extensive laboratory workup and monitoring. Critical care time: 40 minutes. Laboratory Tests Test 02/26/18 08:19 White Blood Count 5.4 K/UL (4.8-10.8) Red Blood Count 3.70 M/UL (4.20-5.40) L Hemoglobin 11.5 G/DL (12.0-16.0) L Hematocrit 37.6 % (37.0-47.0) Mean Corpuscular Volume 102 FL (80-99) H Mean Corpuscular Hemoglobin 31.2 PG (27.0-31.0) H Mean Corpuscular Hemoglobin Concent 30.7 G/DL (32.0-36.0) L Red Cell Distribution Width 16.1 % (11.6-14.8) H Platelet Count 285 K/UL (150-450) Mean Platelet Volume 8.7 FL (6.5-10.1) Neutrophils (%) (Auto) 76.0 % (45.0-75.0) H Lymphocytes (%) (Auto) 16.3 % (20.0-45.0) L Monocytes (%) (Auto) 6.7 % (1.0-10.0) Eosinophils (%) (Auto) 0.2 % (0.0-3.0) Basophils (%) (Auto) 0.9 % (0.0-2.0) Urine Color Yellow Urine Appearance Slightly cloudy Urine pH 8 (4.5-8.0) Urine Specific [place] 1.010 (1.005-1.035) Urine Protein 2+ (NEGATIVE) H Urine Glucose (UA) Negative (NEGATIVE) Urine Ketones Negative (NEGATIVE) Urine Occult Blood 2+ (NEGATIVE) H Urine Nitrite Negative (NEGATIVE) Urine Bilirubin Negative (NEGATIVE) Urine Urobilinogen 1 MG/DL (0.0-1.0) H Urine Leukocyte Esterase 3+ (NEGATIVE) H Urine RBC Pending Urine WBC Pending Urine Squamous Epithelial Cells Pending Urine Bacteria Pending Sodium Level 143 MMOL/L (136-145) Potassium Level 4.2 MMOL/L (3.5-5.1) Chloride Level 105 MMOL/L (98-107) Carbon Dioxide Level 36 MMOL/L (21-32) H Anion Gap 2 mmol/L (5-15) L Blood Urea Nitrogen 25 mg/dL (7-18) H Creatinine 0.7 MG/DL (0.55-1.30) Estimate Glomerular Filtration Rate mL/min (>60) Glucose Level 111 MG/DL (74-106) H Lactic Acid Level 1.10 mmol/L (0.66-2.22) Calcium Level 9.0 MG/DL (8.5-10.1) Total Bilirubin 0.2 MG/DL (0.2-1.0) Aspartate Amino Transferase (AST) 17 U/L (15-37) Alanine Aminotransferase (ALT) 7 U/L (12-78) L Alkaline Phosphatase 49 U/L (46-116) Total Creatine Kinase 38 U/L (26-308) Creatine Kinase MB < 0.5 NG/ML (0.0-3.6) Creatine Kinase MB Relative Index Troponin I 0.000 ng/mL (0.000-0.056) Total Protein 8.5 G/DL (6.4-8.2) H Albumin 2.4 G/DL (3.4-5.0) L Globulin 6.1 g/dL Albumin/Globulin Ratio 0.4 (1.0-2.7) L Microbiology Date/Time Source Procedure Growth Status 02/26/18 08:19 Nasal Nares Influenza Types A,B Antigen ([facility]) - Final Complete EKG Diagnostic Results Rate: normal Rhythm: NSR ST Segments: no acute changes Rhythm Strip Diag. Results EP Interpretation: yes Rate: 90's Rhythm: NSR, no PVC's, no ectopy Chest X-Ray Diagnostic Results Chest X-Ray Diagnostic Results : Chest X-Ray Ordered: Yes # of Views/Limited/Complete: 1 View Indication: Other - fever Interpretation: other - Questionabel LLL opacity, poor quality xray Impression: Other - See above Electronically Signed by: Baltazar Last Vital Signs Date Time Temp Pulse Resp B/P (MAP) Pulse Ox O2 Delivery O2 Flow Rate FiO2 02/26/18 07:47 100 30 116/39 98 Nasal Cannula 3.0 Disposition: ADMITTED INPATIENT Condition: Critical Referrals: BREANNE SORIA (PCP) ALEXANDRE MONTALVO D.O. February 26, 2018 08:11
[2018-02-26] MEDS ORDERED: Acetaminophen 650 MG SUPP RECTAL ONE (08:15)
[2018-02-26 08:36] VITALS: BP 121/100
[2018-02-26 08:50] LABS: APPEARANCE,URINE SLIGHTLY CLOUDY; BILIRUBIN, URINE NEGATIVE (NEGATIVE); GLUCOSE, URINE (UA) NEGATIVE (NEGATIVE); KETONES,URINE NEGATIVE (NEGATIVE); LEUKOCYTE ESTERASE ,URINE 3+ (NEGATIVE); NITRITE,URINE NEGATIVE (NEGATIVE); PH,URINE 8 (4.5-8.0); PROTEIN,URINE 2+ (NEGATIVE); UROBILINOGEN,URINE 1 MG/DL (0.0-1.0)
[2018-02-26 08:55] LABS: BASOPHILS % (AUTO) 0.9 % (0.0-2.0); COLOR,URINE YELLOW; EOSINOPHILS % (AUTO) 0.2 % (0.0-3.0); HEMATOCRIT 37.6 % (37.0-47.0); HEMOGLOBIN 11.5 G/DL (12.0-16.0); LYMPHOCYTES % (AUTO) 16.3 % (20.0-45.0); MEAN CORPUSCULAR VOLUME 102 FL (80-99); MONOCYTES % (AUTO) 6.7 % (1.0-10.0); PLATELET COUNT 285 K/UL (150-450); RED CELL DISTRIBUTION WIDTH 16.1 % (11.6-14.8); WHITE BLOOD COUNT 5.4 K/UL (4.8-10.8)
[2018-02-26 08:59] LABS: ANION GAP 2 mmol/L (5-15); BLOOD UREA NITROGEN 25 mg/dL (7-18); CARBON DIOXIDE 36 MMOL/L (21-32); CHLORIDE 105 MMOL/L (98-107); CREATININE 0.7 MG/DL (0.55-1.30); POTASSIUM 4.2 MMOL/L (3.5-5.1); SODIUM 143 MMOL/L (136-145)
[2018-02-26 09:13] LABS: ALANINE AMINOTRANSFERASE 7 U/L (12-78); ALBUMIN 2.4 G/DL (3.4-5.0); ALBUMIN/GLOBULIN RATIO 0.4 (1.0-2.7); ALKALINE PHOSPHATASE 49 U/L (46-116); ASPARTATE AMINO TRANSFERASE 17 U/L (15-37); BILIRUBIN,TOTAL 0.2 MG/DL (0.2-1.0); CKMB < 0.5 NG/ML (0.0-3.6); CREATINE KINASE 38 U/L (26-308)
[2018-02-26 09:57] VITALS: BP 120/49
--- NOTE | 2018-02-26 10:14 | Consultation ---
Consult Note Consult Note 72 year old patient presents from a half-way facility. She also is here because she has a fever of 101. The patient is nonverbal and unable to give any history. This patient with noted fevers and congestion. Patient withdrawn. Allergies: CEFTRIAXONE (Verified Allergy, Unknown, 03/31/17) PENICILLINS (Verified Allergy, Unknown, 03/31/17) SULFA (SULFONAMIDE ANTIBIOTICS) (Verified Allergy, Unknown, 03/31/17) TAZOBACTAM (Verified Allergy, Unknown, 03/31/17) Past Medical History: HTN, CAD, AFib, GERD, CVA/TIA, dementia, seizures, Afib, functional quadraplegia, multiple sclerosis Social History: Denies: smoking, alcohol use, half-way patient Reviewed of systems: unable Physical WDWN NAD reduced breath sounds bilaterally without rhonchi or wheeze [id number] without MRG NABS nontender no HSM no CCE reduced ROM poor LOC Labs Test 02/26/18 08:19 White Blood Count 5.4 K/UL (4.8-10.8) Red Blood Count 3.70 M/UL (4.20-5.40) Hemoglobin 11.5 G/DL (12.0-16.0) Hematocrit 37.6 % (37.0-47.0) Mean Corpuscular Volume 102 FL (80-99) Mean Corpuscular Hemoglobin 31.2 PG (27.0-31.0) Mean Corpuscular Hemoglobin Concent 30.7 G/DL (32.0-36.0) Red Cell Distribution Width 16.1 % (11.6-14.8) Platelet Count 285 K/UL (150-450) Mean Platelet Volume 8.7 FL (6.5-10.1) Neutrophils (%) (Auto) 76.0 % (45.0-75.0) Lymphocytes (%) (Auto) 16.3 % (20.0-45.0) Monocytes (%) (Auto) 6.7 % (1.0-10.0) Eosinophils (%) (Auto) 0.2 % (0.0-3.0) Basophils (%) (Auto) 0.9 % (0.0-2.0) Urine Color Yellow Urine Appearance Slightly cloudy Urine pH 8 (4.5-8.0) Urine Specific [place] 1.010 (1.005-1.035) Urine Protein 2+ (NEGATIVE) Urine Glucose (UA) Negative (NEGATIVE) Urine Ketones Negative (NEGATIVE) Urine Occult Blood 2+ (NEGATIVE) Urine Nitrite Negative (NEGATIVE) Urine Bilirubin Negative (NEGATIVE) Urine Urobilinogen 1 MG/DL (0.0-1.0) Urine Leukocyte Esterase 3+ (NEGATIVE) Urine RBC 5-10 /HPF (0 - 2) Urine WBC Tntc /HPF (0 - 2) Urine Squamous Epithelial Cells Moderate /LPF (NONE/OCC) Urine Bacteria Moderate /HPF (NONE) Sodium Level 143 MMOL/L (136-145) Potassium Level 4.2 MMOL/L (3.5-5.1) Chloride Level 105 MMOL/L (98-107) Carbon Dioxide Level 36 MMOL/L (21-32) Anion Gap 2 mmol/L (5-15) Blood Urea Nitrogen 25 mg/dL (7-18) Creatinine 0.7 MG/DL (0.55-1.30) Estimat Glomerular Filtration Rate mL/min (>60) Glucose Level 111 MG/DL (74-106) Lactic Acid Level 1.10 mmol/L (0.66-2.22) Calcium Level 9.0 MG/DL (8.5-10.1) Total Bilirubin 0.2 MG/DL (0.2-1.0) Aspartate Amino Transf (AST/SGOT) 17 U/L (15-37) Alanine Aminotransferase (ALT/SGPT) 7 U/L (12-78) Alkaline Phosphatase 49 U/L (46-116) Total Creatine Kinase 38 U/L (26-308) Creatine Kinase MB < 0.5 NG/ML (0.0-3.6) Creatine Kinase MB Relative Index Troponin I 0.000 ng/mL (0.000-0.056) Total Protein 8.5 G/DL (6.4-8.2) Albumin 2.4 G/DL (3.4-5.0) Globulin 6.1 g/dL Albumin/Globulin Ratio 0.4 (1.0-2.7) IMPRESSION fever congestion aspiration multiple allergies CAD CVA multiple sclerosis PLAN care noted IV antibiotics check cxr respiratory care oxygen suction impression, plan, and exam edited and reviewed in detail care discussed with Steve Noble MD February 26, 2018 10:14
--- NOTE | 2018-02-26 10:22 | Diagnostic Imaging Report ---
INDICATION: Cough COMPARISON: Chest x-ray dated 04/05/17 FINDINGS: Single frontal view demonstrates opacification of the left lower lung zone, slightly increased from prior exam. This obscures the cardiomediastinal silhouette. The visualized osseous structures are within normal limits. IMPRESSION: Opacification of the left lower lung zone, slightly increased from prior exam.
[2018-02-26 11:30] VITALS: BP 110/48
[2018-02-26] MEDS: HydrALAZINE 10mg Tab GT SCH ×2 (12:00→18:17)
[2018-02-26] MEDS ORDERED: Ipratropium 0.02% Inh Soln 2.5ml UD HHN PRN (12:00)
[2018-02-26] MEDS ORDERED: Milk of Magnesia 30ml Ud GT PRN (12:00)
[2018-02-26] MEDS ORDERED: Acetaminophen 650mg/20.3ml ORAL PRN (12:00)
[2018-02-26] MEDS ORDERED: Gentamicin Rx monitoring MISC PRN (13:15)
[2018-02-26] MEDS: Valproic Acid 250mg/5ml Liquid NG SCH ×2 (14:14→21:22)
[2018-02-26] MEDS: Metoclopramide 10mg/10ml Liq GT SCH ×2 (14:14→21:22)
[2018-02-26] MEDS: Lacosamide 50mg tablet ORAL SCH ×2 (14:14→21:22)
[2018-02-26] MEDS ORDERED: Gentamicin inj 350 MG in NS 110 ML IVPB SCH (15:00)
[2018-02-26 16:00] VITALS: BP 150/62
[2018-02-26] MEDS ORDERED: Docusate 100mg cap ORAL SCH (18:00)
[2018-02-26] MEDS: Docusate 100mg/10ml Liq NG SCH (18:17)
[2018-02-26 20:00] VITALS: BP 122/46
[2018-02-26] MEDS: Acetaminophen 650 MG SUPP RECTAL PRN (23:44)
[2018-02-27] VITALS (7 sets, daily range): BP systolic 101–134; BP diastolic 47–61
--- NOTE | 2018-02-27 00:45 | History and Physical Report ---
DATE OF ADMISSION: 02/26/2018 CHIEF COMPLAINT: Sepsis, pneumonia, UTI. HISTORY OF PRESENT ILLNESS: The patient is a unfortunate 72-year-old female. She has a history of encephalopathy, DVT status post IVC filter, paroxysmal atrial fibrillation, and seizure disorder. She has dysphagia status post G-tube. [facility] from [facility] facility with complaints of fevers. On evaluation in the emergency room, the patient had x-ray evidence of pneumonia. She also had evidence of urinary tract infection. She has been started on broad-spectrum antibiotic therapy and is now admitted for further evaluation and care. PAST MEDICAL HISTORY: As above. PAST SURGICAL HISTORY: G-tube. CURRENT MEDICATIONS: Reconciled and reviewed. ALLERGIES: Ceftriaxone, penicillin, sulfa and tazobactam. FAMILY HISTORY: Noncontributory. SOCIAL HISTORY: There is no known history of tobacco, ethanol, or drugs. REVIEW OF SYSTEMS: From the patient is unobtainable. PHYSICAL EXAMINATION: VITAL SIGNS: Temperature was 100.2 degrees, pulse 90, respirations 24, and blood pressure 122/46. The patient is saturating 98% on 40% FiO2. GENERAL: The patient is a chronic ill-appearing female, in no apparent distress. She is nonverbal at baseline. NECK: Supple. HEART: Regular rate and rhythm. LUNGS: Scattered rhonchi. ABDOMEN: Soft, nontender and nondistended. EXTREMITIES: Without clubbing, cyanosis, or edema. LABORATORY AND DIAGNOSTIC DATA: Sodium 143, potassium 4.2, chloride 105, bicarbonate 36, BUN 25 and creatinine is 0.7. White count was 5, hemoglobin 11, and hematocrit of 37 and platelet count of 285. UA showed too numerous count wbc's. X-ray showed a left-sided infiltrate. ASSESSMENT: This is a pleasant female with complaints of sepsis secondary to pneumonia, UTI. 1. Sepsis. 2. Pneumonia. 3. UTI. 4. Encephalopathy. 5. History of seizure disorder. PLAN: IV hydration. IV antibiotics. ID, Pulmonary, and GI consultation will be obtained. Caden Recio M.D. DR: RERE JOB#: [id number] CC:
[2018-02-27] MEDS: Metoclopramide 10mg/10ml Liq GT SCH ×3 (05:36→21:26)
[2018-02-27] MEDS: Acetaminophen 650 MG SUPP RECTAL PRN ×2 (05:36→13:07)
--- NOTE | 2018-02-27 07:15 | Pulmonology Progress Note ---
Assessment/Plan Assessment/Plan IMPRESSION fever congestion aspiration multiple allergies CAD CVA multiple sclerosis pneumonia possible effusion PLAN care noted IV antibiotics pending cultures check cxr on follow up respiratory care as outlined fever work up oxygen suction impression, plan, and exam edited and reviewed in detail care discussed with RN Subjective ROS Limited/Unobtainable: Yes Allergies: Coded Allergies: CEFTRIAXONE (Verified Allergy, Unknown, 03/31/17) PENICILLINS (Verified Allergy, Unknown, 03/31/17) SULFA (SULFONAMIDE ANTIBIOTICS) (Verified Allergy, Unknown, 03/31/17) TAZOBACTAM (Verified Allergy, Unknown, 03/31/17) Uncoded Allergies: SULFA ANTIBIOTICS (Allergy, Unknown, 02/26/18) Subjective fevers overnight on antibiotics Objective Last 24 Hour Vital Signs Date Time Temp Pulse Resp B/P (MAP) Pulse Ox O2 Delivery O2 Flow Rate FiO2 02/27/18 06:06 101.6 02/27/18 05:36 103.1 02/27/18 04:00 120 02/27/18 04:00 102.1 114 26 134/50 97 Venturi Mask 40 102.1 02/27/18 02:20 122/46 02/27/18 00:00 105 02/27/18 00:00 101.7 106 22 118/48 97 Venturi Mask 40 101.7 02/26/18 23:44 101.7 02/26/18 21:23 122/46 02/26/18 20:30 88 20 Venturi Mask 8.0 40 02/26/18 20:29 99 Venturi Mask 8.0 40 02/26/18 20:28 Venturi Mask 8.0 40 02/26/18 20:00 100.2 90 24 122/46 99 Venturi Mask 40 100.2 02/26/18 20:00 84 02/26/18 18:56 101.0 101.0 02/26/18 18:17 150/62 02/26/18 17:05 102.0 02/26/18 16:35 102.0 02/26/18 16:24 88 22 94 Venturi Mask 8.0 40 02/26/18 16:14 88 22 89 Nasal Cannula 4.0 02/26/18 16:00 102.0 104 24 150/62 92 Nasal Cannula 4.0 102.0 02/26/18 16:00 100 02/26/18 14:11 88 22 Nasal Cannula 4.0 02/26/18 12:00 110/48 02/26/18 12:00 82 02/26/18 11:30 98.4 85 22 110/48 98 Nasal Cannula 4.0 98.4 02/26/18 10:07 100.8 89 22 134/67 100 Nasal Cannula 4.0 100.8 02/26/18 09:57 100.8 89 23 120/49 100 Nasal Cannula 4.0 100.8 02/26/18 09:06 101.9 02/26/18 08:36 102.7 02/26/18 08:36 102.7 93 23 121/100 99 Nasal Cannula 4.0 102.7 02/26/18 07:47 100 30 116/39 98 Nasal Cannula 3.0 Intake and Output 02/26/18 02/27/18 19:00 07:00 Intake Total 1173.75 ml Output Total 500 ml 50 ml Balance 673.75 ml -50 ml Intake IV Total 1173.75 ml Output Urine Total 500 ml 50 ml # Voids 1 1 # Bowel Movements 2 Objective WDWN NAD reduced breath sounds bilaterally with some rhonchi [id number] without MRG NABS nontender no HSM no CCE reduced LOC skin exam noted Microbiology Date/Time Source Procedure Growth Status 02/26/18 08:19 Nasal Nares MRSA Culture - Final Staphylococcus Aureus - Mrsa Complete 02/26/18 08:19 Nasal Nares Influenza Types A,B Antigen ([facility]) - Final Complete 02/26/18 08:19 Urine,Clean Catch Urine Culture - Preliminary Strep Species, Gamma-Hemolytic Resulted Laboratory Tests 02/26/18 08:19: White Blood Count 5.4, Red Blood Count 3.70L, Hemoglobin 11.5L, Hematocrit 37.6 , Mean Corpuscular Volume 102H, Mean Corpuscular Hemoglobin 31.2H, Mean Corpuscular Hemoglobin Concent 30.7L, Red Cell Distribution Width 16.1H, Platelet Count 285, Mean Platelet Volume 8.7, Neutrophils (%) (Auto) 76.0H, Lymphocytes (%) (Auto) 16.3L, Monocytes (%) (Auto) 6.7, Eosinophils (%) (Auto) 0.2, Basophils (%) (Auto) 0.9, Urine Color Yellow, Urine Appearance Slightly cloudy, Urine pH 8, Urine Specific [place] 1.010, Urine Protein 2+H, Urine Glucose (UA) Negative, Urine Ketones Negative, Urine Occult Blood 2+H, Urine Nitrite Negative, Urine Bilirubin Negative, Urine Urobilinogen 1H, Urine Leukocyte Esterase 3+H, Urine RBC 5-10H, Urine WBC TntcH, Urine Squamous Epithelial Cells ModerateH, Urine Bacteria ModerateH, Sodium Level 143, Potassium Level 4.2, Chloride Level 105, Carbon Dioxide Level 36H, Anion Gap 2L , Blood Urea Nitrogen 25H, Creatinine 0.7, Estimat Glomerular Filtration Rate , Glucose Level 111H, Lactic Acid Level 1.10, Calcium Level 9.0, Total Bilirubin 0.2, Aspartate Amino Transf (AST/SGOT) 17, Alanine Aminotransferase (ALT/SGPT) 7L, Alkaline Phosphatase 49, Total Creatine Kinase 38, Creatine Kinase MB < 0.5 , Creatine Kinase MB Relative Index , Troponin I 0.000, Total Protein 8.5H, Albumin 2.4L, Globulin 6.1, Albumin/Globulin Ratio 0.4L 02/26/18 16:16: Arterial Blood pH 7.400, Arterial Blood Partial Pressure CO2 54.4H, Arterial Blood Partial Pressure O2 81.7, Arterial Blood HCO3 33.2H, Arterial Blood Oxygen Saturation 95.1, Arterial Blood Base Excess 7.2, Neil Test Positive Current Medications Medications (Trade) Dose Ordered Sig/Reji Route PRN Reason Start Time Stop Time Status Last Admin Dose Admin Acetaminophen (Tylenol) 650 mg Q4H PRN RECTAL Prn Headache/Temp > 101 02/26/18 20:45 03/28/18 20:44 02/27/18 05:36 Ascorbic Acid (Vitamin C) 500 mg DAILY GT 02/27/18 09:00 03/29/18 08:59 Docusate Sodium (Colace) 100 mg TWICE A DAY NG 02/26/18 18:00 03/28/18 17:59 02/26/18 18:17 Furosemide (Lasix) 20 mg DAILY GT 02/26/18 12:00 03/28/18 11:59 02/26/18 14:14 Gentamicin Protocol (Gentamicin pharmacy to dose) 1 ea DAILY PRN MISC Per rx protocol 02/26/18 13:15 03/28/18 13:14 Gentamicin Sulfate 350 mg/ Sodium Chloride 118.75 ml @ 118.75 mls/hr Q24H IVPB 02/26/18 15:00 03/05/18 23:59 02/26/18 15:44 Hydralazine HCl (Apresoline) 10 mg Q6H IV 02/26/18 20:45 03/28/18 20:44 02/27/18 02:20 Ipratropium [place] (Atrovent) 500 mcg Q6H PRN HHN Shortness of Breath 02/26/18 12:00 03/03/18 11:59 02/26/18 16:14 Lacosamide (Vimpat) 50 mg EVERY 12 HOURS ORAL 02/26/18 12:00 03/28/18 11:59 02/26/18 21:22 Levothyroxine Sodium (Synthroid) 100 mcg DAILY GT 02/27/18 09:00 03/29/18 08:59 Magnesium Hydroxide (Mom) 30 ml DAILY PRN GT Constipation 02/26/18 12:00 03/28/18 11:59 Metoclopramide HCl (Reglan) 10 mg EVERY 8 HOURS GT 02/26/18 14:00 03/28/18 13:59 02/27/18 05:36 Rivaroxaban (Xarelto) 20 mg DAILY GT 02/27/18 09:00 03/29/18 08:59 Valproic Acid (Depakene) 1,000 mg EVERY 12 HOURS NG 02/26/18 13:15 03/28/18 13:14 02/26/18 21:22 Vancomycin HCl (Vanco rx to dose) 1 ea DAILY PRN MISC Per rx protocol 02/26/18 13:15 03/28/18 13:14 Vancomycin HCl/ Dextrose 250 ml @ 125 mls/hr Q24H IVPB 02/27/18 08:00 03/04/18 23:59 Steve Baker MD February 27, 2018 07:15
[2018-02-27] MEDS ORDERED: Lidocaine 1% Plain 30 ml INJ ONE (07:45)
[2018-02-27] MEDS ORDERED: Heparin 2000 units/Ns 1000ml INJ ONE (07:45)
--- NOTE | 2018-02-27 07:55 | General Progress Note ---
Assessment/Plan Problem List: (1) Seizure disorder ICD Codes: G40.909 - Epilepsy, unspecified, not intractable, without status epilepticus SNOMED: 981133848 (2) Anemia ICD Codes: D64.9 - Anemia, unspecified SNOMED: 098226365 (3) G tube feedings ICD Codes: Z93.1 - Gastrostomy status SNOMED: 372691935, 556851120 (4) Fever ICD Codes: R50.9 - Fever, unspecified SNOMED: 336290290 (5) Pyelonephritis ICD Codes: N12 - Tubulo-interstitial nephritis, not specified as acute or chronic SNOMED: 84035747 (6) Malfunction of gastrostomy tube ICD Codes: K94.23 - Gastrostomy malfunction SNOMED: 729513695 (7) Sepsis ICD Codes: A41.9 - Sepsis, unspecified organism SNOMED: 61236091 Status: stable, not improved Assessment/Plan iv abx follow up cultures resp rx o2 gt feeds as tolerated. picc line gi called for leaking gt skin care sz rx Subjective ROS Limited/Unobtainable: Yes Constitutional: Reports: malaise, weakness HEENT: Reports: no symptoms Cardiovascular: Reports: no symptoms Respiratory: Reports: cough, shortness of breath Gastrointestinal/Abdominal: Reports: difficulty swallowing Genitourinary: Reports: no symptoms Neurologic/Psychiatric: Reports: pre-existing deficit, seizure Endocrine: Reports: no symptoms Hematologic/Lymphatic: Reports: no symptoms Allergies: Coded Allergies: CEFTRIAXONE (Verified Allergy, Unknown, 03/31/17) PENICILLINS (Verified Allergy, Unknown, 03/31/17) SULFA (SULFONAMIDE ANTIBIOTICS) (Verified Allergy, Unknown, 03/31/17) TAZOBACTAM (Verified Allergy, Unknown, 03/31/17) Uncoded Allergies: SULFA ANTIBIOTICS (Allergy, Unknown, 02/26/18) All Systems: reviewed and negative except above Subjective leaking from gt. + fevers. poor iv access. on facemask. no szs. cultures noted. Objective Last 24 Hour Vital Signs Date Time Temp Pulse Resp B/P (MAP) Pulse Ox O2 Delivery O2 Flow Rate FiO2 02/27/18 06:06 101.6 02/27/18 05:36 103.1 02/27/18 04:00 120 02/27/18 04:00 102.1 114 26 134/50 97 Venturi Mask 40 102.1 02/27/18 02:20 122/46 02/27/18 00:00 105 02/27/18 00:00 101.7 106 22 118/48 97 Venturi Mask 40 101.7 02/26/18 23:44 101.7 02/26/18 21:23 122/46 02/26/18 20:30 88 20 Venturi Mask 8.0 40 02/26/18 20:29 99 Venturi Mask 8.0 40 02/26/18 20:28 Venturi Mask 8.0 40 02/26/18 20:00 100.2 90 24 122/46 99 Venturi Mask 40 100.2 02/26/18 20:00 84 02/26/18 18:56 101.0 101.0 02/26/18 18:17 150/62 02/26/18 17:05 102.0 02/26/18 16:35 102.0 02/26/18 16:24 88 22 94 Venturi Mask 8.0 40 02/26/18 16:14 88 22 89 Nasal Cannula 4.0 02/26/18 16:00 102.0 104 24 150/62 92 Nasal Cannula 4.0 102.0 02/26/18 16:00 100 02/26/18 14:11 88 22 Nasal Cannula 4.0 02/26/18 12:00 110/48 02/26/18 12:00 82 02/26/18 11:30 98.4 85 22 110/48 98 Nasal Cannula 4.0 98.4 02/26/18 10:07 100.8 89 22 134/67 100 Nasal Cannula 4.0 100.8 02/26/18 09:57 100.8 89 23 120/49 100 Nasal Cannula 4.0 100.8 02/26/18 09:06 101.9 02/26/18 08:36 102.7 02/26/18 08:36 102.7 93 23 121/100 99 Nasal Cannula 4.0 102.7 Intake and Output 02/26/18 02/27/18 19:00 07:00 Intake Total 1173.75 ml Output Total 500 ml 50 ml Balance 673.75 ml -50 ml Intake IV Total 1173.75 ml Output Urine Total 500 ml 50 ml # Voids 1 1 # Bowel Movements 2 Laboratory Tests 02/26/18 08:19: White Blood Count 5.4, Red Blood Count 3.70L, Hemoglobin 11.5L, Hematocrit 37.6 , Mean Corpuscular Volume 102H, Mean Corpuscular Hemoglobin 31.2H, Mean Corpuscular Hemoglobin Concent 30.7L, Red Cell Distribution Width 16.1H, Platelet Count 285, Mean Platelet Volume 8.7, Neutrophils (%) (Auto) 76.0H, Lymphocytes (%) (Auto) 16.3L, Monocytes (%) (Auto) 6.7, Eosinophils (%) (Auto) 0.2, Basophils (%) (Auto) 0.9, Urine Color Yellow, Urine Appearance Slightly cloudy, Urine pH 8, Urine Specific [place] 1.010, Urine Protein 2+H, Urine Glucose (UA) Negative, Urine Ketones Negative, Urine Occult Blood 2+H, Urine Nitrite Negative, Urine Bilirubin Negative, Urine Urobilinogen 1H, Urine Leukocyte Esterase 3+H, Urine RBC 5-10H, Urine WBC TntcH, Urine Squamous Epithelial Cells ModerateH, Urine Bacteria ModerateH, Sodium Level 143, Potassium Level 4.2, Chloride Level 105, Carbon Dioxide Level 36H, Anion Gap 2L , Blood Urea Nitrogen 25H, Creatinine 0.7, Estimat Glomerular Filtration Rate , Glucose Level 111H, Lactic Acid Level 1.10, Calcium Level 9.0, Total Bilirubin 0.2, Aspartate Amino Transf (AST/SGOT) 17, Alanine Aminotransferase (ALT/SGPT) 7L, Alkaline Phosphatase 49, Total Creatine Kinase 38, Creatine Kinase MB < 0.5 , Creatine Kinase MB Relative Index , Troponin I 0.000, Total Protein 8.5H, Albumin 2.4L, Globulin 6.1, Albumin/Globulin Ratio 0.4L 02/26/18 16:16: Arterial Blood pH 7.400, Arterial Blood Partial Pressure CO2 54.4H, Arterial Blood Partial Pressure O2 81.7, Arterial Blood HCO3 33.2H, Arterial Blood Oxygen Saturation 95.1, Arterial Blood Base Excess 7.2, Neil Test Positive Height (Feet): 5 Height (Inches): 2.00 Weight (Pounds): 220 General Appearance: WD/WN, lethargic, confused Neck: supple Cardiovascular: normal rate, regular rhythm Respiratory/Chest: rhonchi - bilaterally Abdomen: normal bowel sounds, non tender, soft, no organomegaly Edema: no edema noted Arm (L), no edema noted Arm (R), no edema noted Leg (L), no edema noted Leg (R), no edema noted Pedal (L), no edema noted Pedal (R), no edema noted Generalized Neurologic: unresponsive, aphasia BREANNE SORIA February 27, 2018 07:55
[2018-02-27] MEDS: Vancomycin 1.5 GM/D5W 250ML IVPB SCH (08:26)
[2018-02-27] MEDS: Ascorbic Acid 500mg tab GT SCH (08:26)
[2018-02-27] MEDS: Lacosamide 50mg tablet ORAL SCH ×2 (08:26→21:00)
[2018-02-27] MEDS: Valproic Acid 250mg/5ml Liquid NG SCH ×2 (08:27→21:25)
[2018-02-27] MEDS: Docusate 100mg/10ml Liq NG SCH ×2 (08:28→19:48)
[2018-02-27] MEDS ORDERED: Xarelto 10mg tab GT SCH (09:00)
[2018-02-27] MEDS ORDERED: Silver Nitrate Stick TOPIC ONE ×2 (10:45)
[2018-02-27] MEDS: Levofloxacin 500mg tab ORAL SCH (11:30)
--- NOTE | 2018-02-27 16:30 | Consultation ---
DATE OF CONSULTATION: 02/27/2018 INFECTIOUS DISEASES CONSULTATION CONSULTING PHYSICIAN: Adams Mo M.D. REFERRING PHYSICIAN: Caden Recio M.D. REASON FOR CONSULTATION: Urinary tract infection and pneumonia. HISTORY OF PRESENT ILLNESS: This is a 72-year-old lady with history of encephalopathy, seizure disorder, atrial fibrillation, DVT status post IVC filter placement, status post G-tube placement who was transferred from a [facility] facility with fevers. She was seen in [place] emergency room where she was found to have a urinary tract infection and pneumonia and an Infectious Diseases consultation has been obtained for antibiotics. PAST MEDICAL HISTORY: 1. History of encephalopathy. 2. Seizure disorder. 3. Atrial fibrillation. 4. DVT status post IVC filter placement. 5. Status post G-tube placement. MEDICATIONS: As an inpatient, she is on chlorhexidine gluconate, ascorbic acid, levothyroxine, Xarelto, IV vancomycin, Tylenol, hydralazine, docusate, gentamicin, Reglan, valproic acid, furosemide, ipratropium bromide, lacosamide, milk of magnesia. ALLERGIES: 1. Penicillin. 2. Ceftriaxone. 3. Sulfa. SOCIAL HISTORY: No history of smoking, alcohol, or drug use. FAMILY HISTORY: Noncontributory. REVIEW OF SYSTEMS: Unable to be obtain currently. PHYSICAL EXAMINATION: VITAL SIGNS: Temperature of 101.4, T-max of 102.1, pulse of 99, respiratory rate 20, blood pressure 120/50, O2 saturation of 97%. HEENT: Pupils equally reactive to light and accommodation. Mouth appears clean without thrush. NECK: Supple. No adenopathy. No JVD. CARDIOVASCULAR: Regular rate and rhythm. No murmurs. LUNGS: Clear to auscultation bilaterally. No crackles. No wheezes. ABDOMEN: Soft and nontender. No organomegaly. G-tube site with some drainage noted around it. EXTREMITIES: No cyanosis, no clubbing. Edema noted bilaterally. LABORATORY AND DIAGNOSTIC DATA: White count 5.4, hemoglobin 11.5, hematocrit , MCV 102, platelet count of 285 with neutrophils of 76%. Sodium 143, potassium 4.2, chloride 105, bicarb 36, BUN 25, creatinine 0.7, glucose 111, calcium 9. Total bilirubin 0.2, AST 17, ALT 7, alkaline phosphatase 49. CK of 38, CK-MB less than 0.5. Total protein 8.5. Albumin 2.4. UA showing too numerous to count white cells. Urine culture growing Streptococcus species 40,000 to 50,000. Nasal swab was positive for MRSA. Nasal influenza was negative for A and B. Chest x-ray showing opacification of the left lower lung zone likely increase. ASSESSMENT: This is a 72-year-old lady with history of seizure disorder, encephalopathy, atrial fibrillation who comes in with: 1. Streptococcus urinary tract infection. 2. Pneumonia. 3. G-tube site cellulitis. PLAN: 1. Continue IV vancomycin. 2. Discontinue gentamicin. 3. We will start the patient on Levaquin. 4. We will order sputum for Gram stain and culture. 5. We will order G-tube site cultures. 6. We would recommend a GI evaluation. I would like to thank, Dr. Recio this consultation. Adams Mo M.D. DR: Chon JOB#: [id number] CC: Caden Recio M.D.
[2018-02-27] MEDS: Dyna-Hex 2% Top Sol 2oz TOPIC SCH (20:00)
--- NOTE | 2018-02-27 20:45 | Consultation ---
DATE OF CONSULTATION: 02/27/2018 GASTROENTEROLOGY CONSULTATION CONSULTING PHYSICIAN: Aaron Tena M.D. CHIEF COMPLAINT: I was asked to see this patient by Dr. Caden Recio for evaluation of gastrostomy site leakage and bleeding. HISTORY OF PRESENT ILLNESS: The patient is an unfortunate 72-year-old white woman with advanced encephalopathy was in a bedbound state who comes into the hospital due to sepsis, pneumonia, urine tract infection. She was also noted to have bleeding from her gastrostomy site. I evaluated the site myself and it appears to have clear discharge with some easy bleeding from the site itself. Gastrostomy with 24-[place] catheter. There was no reports of any feeding issues otherwise. PAST MEDICAL HISTORY: History of encephalopathy, contraction deformities, history of deep vein thrombosis status post IVC filter placement, paroxysmal atrial fibrillation, history of seizure disorder, dysphagia status gastrostomy tube placement. MEDICATIONS: See the chart list for details. FAMILY HISTORY: Not available. SOCIAL HISTORY: The patient resides in a 24-hour fdc. There is no recent history of smoking or drinking. REVIEW OF SYSTEMS: Otherwise negative. PHYSICAL EXAMINATION: GENERAL: A debilitated white woman who is not communicative, seen in her room. She makes random motions with her hand without purpose. HEENT: Normocephalic and atraumatic. Oropharynx could not be evaluated. NECK: Mobile but not very supple. CHEST: Revealed coarse breath sounds. CARDIOVASCULAR: Regular rate. ABDOMEN: Soft and flat. Gastrostomy tube site was evaluated and as described above had some clear discharge with easy friability and bleeding with manipulation. EXTREMITIES: Revealed contracture deformities. NEUROLOGIC: Notable for obtundation and unresponsiveness in vegetative state. LABORATORY DATA: Noted. ASSESSMENT: This patient has a gastrostomy site which has gastric tissue protruding through the channel and this gastric issue is likely the cause of the clear discharge which is gastric with secretions as well as bleeding. The site was treated with 9 sticks of silver nitrate with good effect. Dressing instructions were explained to the nursing staff. For the time being, the tube feedings can be restarted and the patient can be observed. Repeat treat silver nitrate treatments may be necessary in the future to completely ablate the gastric heterotopia. RECOMMENDATIONS: Per above discussion and per orders written in the chart. I will restart the patient the feeding and observe the patient with you. Thank you for asking me to participate in the care of this patient. Aaron Tena M.D. DR: Flori JOB#: [id number] CC:
[2018-02-28] VITALS (8 sets, daily range): BP systolic 88–140; BP diastolic 42–80
[2018-02-28] MEDS: dilTIAZem HCl 30mg tab GT SCH ×2 (00:38→06:22)
[2018-02-28] MEDS: Acetaminophen 650 MG SUPP RECTAL PRN ×2 (00:38→12:16)
--- NOTE | 2018-02-28 02:00 | Consultation ---
DATE OF CONSULTATION: 02/27/2018 CARDIOLOGY CONSULT CONSULTING PHYSICIAN: Nick Gilbert M.D. REQUESTING PHYSICIAN: Caden Recio M.D. REASON FOR CONSULTATION: Supraventricular tachycardia. HISTORY OF PRESENT ILLNESS: This is a 72-year-old female with cerebrovascular disease and functional quadriplegia due to multiple sclerosis, presented to the emergency room with fever and congestion yesterday. A workup undertaken reveals evidence of an aspiration pneumonia and antibiotics as well as respiratory therapy with suctioning and oxygenation have been initiated. Early this morning, she developed episodes of a supraventricular tachycardia. I have reviewed the strips, they appear to show rhythm, narrow complex consistent with a supraventricular tachyarrhythmia. The episodes are not symptomatic, but the patient is on the other hand unable to really express herself or give any information. Historical data is obtained from record reviewed including prior hospitalizations here and her assisted facility. ALLERGIES: Include penicillin, sulfa, ceftriaxone, and tazobactam. PAST MEDICAL HISTORY: 1. Dysphagia with G-tube. 2. DVT with IVC filter. 3. Multiple sclerosis. 4. Paroxysmal atrial fibrillation. 5. Seizure disorder. 6. Hypertensive heart disease. 7. Diastolic dysfunction with chronic congestive heart failure. 8. Hypothyroidism. FAMILY HISTORY: None known. SOCIAL HISTORY: No record of smoking, alcohol, or substance abuse. MEDICATIONS: Reviewed and reconciled. REVIEW OF SYSTEMS: Cannot be reliably obtained from the patient. PHYSICAL EXAMINATION: VITAL SIGNS: T-max 101, blood pressure now 118/61, heart rate 102, respiratory rate 21, and temperature now 99.9. Oxygen saturation on a face mask is 96% with 40% FiO2 delivered. LUNGS: Coarse breath sounds. Scattered rhonchi. HEART: Regular rhythm and rate. Normal S1, S2 with a fourth heart sound. ABDOMEN: Soft. EXTREMITIES: With muscle atrophy and trace dependent edema. LABORATORY AND DIAGNOSTIC DATA: Chest x-ray yesterday revealed opacification of the left lower lung zone. Urine culture reveals gamma hemolytic strep. White count 5.4 and hemoglobin 11.5. ABG yesterday, 7.40, 54, and 82. Sodium 143, potassium 4.2, bicarb 36, BUN 25, creatinine 0.7, troponin 0, albumin 2.4. IMPRESSION: 1. Dysphagia with healthcare acquired pneumonia. 2. Chronic diastolic congestive heart failure, clinically compensated. 3. Paroxysmal supraventricular tachyarrhythmias, likely precipitated by acute respiratory infection and elevated pulmonary artery pressures. 4. Hypothyroidism, on replacement therapy. 5. Multiple sclerosis with quadriparesis. 6. History of DVT with IVC filter. PLAN: 1. Cardiac monitoring. 2. Limit beta agonist therapy. 3. Antimicrobials. 4. Add diltiazem for sustained atrial arrhythmias. 5. DVT prophylaxis. 6. Check magnesium level and natriuretic peptide assay. Nick Gilbert M.D. DR: THERESA JOB#: [id number] CC:
[2018-02-28] MEDS: Metoclopramide 10mg/10ml Liq GT SCH ×3 (06:22→22:25)
[2018-02-28] MEDS: Lacosamide 50mg tablet ORAL SCH ×2 (08:10→21:09)
[2018-02-28] MEDS: Ascorbic Acid 500mg tab GT SCH (08:10)
[2018-02-28] MEDS: Valproic Acid 250mg/5ml Liquid NG SCH ×2 (08:11→21:10)
[2018-02-28] MEDS: Levofloxacin 500mg tab ORAL SCH (08:11)
[2018-02-28] MEDS: Vancomycin 1.5 GM/D5W 250ML IVPB SCH (08:12)
[2018-02-28] MEDS: Docusate 100mg/10ml Liq NG SCH ×2 (08:12→17:59)
--- NOTE | 2018-02-28 08:51 | General Progress Note ---
Assessment/Plan Problem List: (1) Seizure disorder ICD Codes: G40.909 - Epilepsy, unspecified, not intractable, without status epilepticus SNOMED: 525029579 (2) Anemia ICD Codes: D64.9 - Anemia, unspecified SNOMED: 110984855 (3) G tube feedings ICD Codes: Z93.1 - Gastrostomy status SNOMED: 596860917, 512135003 (4) Fever ICD Codes: R50.9 - Fever, unspecified SNOMED: 581257678 (5) Pyelonephritis ICD Codes: N12 - Tubulo-interstitial nephritis, not specified as acute or chronic SNOMED: 97651727 (6) Malfunction of gastrostomy tube ICD Codes: K94.23 - Gastrostomy malfunction SNOMED: 963883878 (7) Sepsis ICD Codes: A41.9 - Sepsis, unspecified organism SNOMED: 66380055 Assessment/Plan iv abx follow up cultures resp rx o2 gt feeds as tolerated. picc line monitor for leakage from gt eeg sz rx skin care sz rx Subjective ROS Limited/Unobtainable: No Constitutional: Reports: malaise, weakness HEENT: Reports: no symptoms Cardiovascular: Reports: no symptoms Respiratory: Reports: cough, shortness of breath Gastrointestinal/Abdominal: Reports: no symptoms Genitourinary: Reports: no symptoms Neurologic/Psychiatric: Reports: pre-existing deficit, seizure Endocrine: Reports: no symptoms Hematologic/Lymphatic: Reports: anemia Allergies: Coded Allergies: CEFTRIAXONE (Verified Allergy, Unknown, 03/31/17) PENICILLINS (Verified Allergy, Unknown, 03/31/17) SULFA (SULFONAMIDE ANTIBIOTICS) (Verified Allergy, Unknown, 03/31/17) TAZOBACTAM (Verified Allergy, Unknown, 03/31/17) Uncoded Allergies: SULFA ANTIBIOTICS (Allergy, Unknown, 02/26/18) All Systems: reviewed and negative except above Subjective no more leak from gt. still running low grade temps. am labs pending. Objective Last 24 Hour Vital Signs Date Time Temp Pulse Resp B/P (MAP) Pulse Ox O2 Delivery O2 Flow Rate FiO2 02/28/18 08:00 100.2 104 20 127/48 96 Venturi Mask 40 100.2 02/28/18 06:22 97 109/49 02/28/18 04:00 97 02/28/18 04:00 99.3 96 20 109/49 96 Venturi Mask 40 99.3 02/28/18 01:08 99.7 02/28/18 00:38 113 132/69 02/28/18 00:38 101.0 02/28/18 00:00 109 02/28/18 00:00 101.2 113 19 132/69 93 Venturi Mask 40 101.2 02/27/18 21:25 114/58 02/27/18 20:00 97.9 88 20 114/58 93 Venturi Mask 40 97.9 02/27/18 20:00 85 02/27/18 18:58 86 20 Venturi Mask 8.0 40 02/27/18 18:58 96 Venturi Mask 8.0 40 02/27/18 18:58 Venturi Mask 8.0 40 02/27/18 17:00 99.9 102 21 118/61 96 Venturi Mask 40 99.9 02/27/18 16:00 87 21 101/47 97 Venturi Mask 40 02/27/18 16:00 85 02/27/18 14:35 101/42 02/27/18 13:07 101.8 02/27/18 12:00 94 02/27/18 12:00 100.3 102 21 118/61 96 Venturi Mask 40 100.3 02/27/18 10:55 109 20 Venturi Mask 8.0 40 02/27/18 10:55 Venturi Mask 8.0 40 02/27/18 10:55 95 Venturi Mask 8.0 40 Intake and Output 02/27/18 02/28/18 19:00 07:00 Intake Total 561 ml 590 ml Output Total 600 ml Balance 561 ml -10 ml Intake Free Water 130 ml 100 ml IV Total 251 ml Tube Feeding 180 ml 490 ml Output Urine Total 600 ml # Bowel Movements 2 Height (Feet): 5 Height (Inches): 2.00 Weight (Pounds): 220 Objective General Appearance: WD/WN, lethargic, confused Neck: supple Cardiovascular: normal rate, regular rhythm Respiratory/Chest: rhonchi - bilaterally Abdomen: normal bowel sounds, non tender, soft, no organomegaly Edema: no edema noted Arm (L), no edema noted Arm (R), no edema noted Leg (L), no edema noted Leg (R), no edema noted Pedal (L), no edema noted Pedal (R), no edema noted Generalized Neurologic: unresponsive, aphasia BREANNE SORIA February 28, 2018 08:51
[2018-02-28] MEDS ORDERED: Xarelto 15mg tab GT SCH (09:00)
--- NOTE | 2018-02-28 10:20 | Pulmonology Progress Note ---
Assessment/Plan Assessment/Plan IMPRESSION fever congestion aspiration multiple allergies CAD CVA multiple sclerosis pneumonia possible effusion PLAN care noted IV antibiotics pending cultures as is check cxr on follow up for improvement and intervention respiratory care as outlined fever work up oxygen suction aspiration precautions impression, plan, and exam edited and reviewed in detail care discussed with RN Subjective ROS Limited/Unobtainable: Yes Allergies: Coded Allergies: CEFTRIAXONE (Verified Allergy, Unknown, 03/31/17) PENICILLINS (Verified Allergy, Unknown, 03/31/17) SULFA (SULFONAMIDE ANTIBIOTICS) (Verified Allergy, Unknown, 03/31/17) TAZOBACTAM (Verified Allergy, Unknown, 03/31/17) Uncoded Allergies: SULFA ANTIBIOTICS (Allergy, Unknown, 02/26/18) Subjective reviewed events overnight on antibiotics cultures noted Objective Last 24 Hour Vital Signs Date Time Temp Pulse Resp B/P (MAP) Pulse Ox O2 Delivery O2 Flow Rate FiO2 02/28/18 08:00 100.2 104 20 127/48 96 Venturi Mask 40 100.2 02/28/18 07:55 102 20 Venturi Mask 8.0 40 02/28/18 07:55 96 Venturi Mask 8.0 40 02/28/18 07:55 Venturi Mask 8.0 40 02/28/18 06:22 97 109/49 02/28/18 04:00 97 02/28/18 04:00 99.3 96 20 109/49 96 Venturi Mask 40 99.3 02/28/18 01:08 99.7 02/28/18 00:38 113 132/69 02/28/18 00:38 101.0 02/28/18 00:00 109 02/28/18 00:00 101.2 113 19 132/69 93 Venturi Mask 40 101.2 02/27/18 21:25 114/58 02/27/18 20:00 97.9 88 20 114/58 93 Venturi Mask 40 97.9 02/27/18 20:00 85 02/27/18 18:58 86 20 Venturi Mask 8.0 40 02/27/18 18:58 96 Venturi Mask 8.0 40 02/27/18 18:58 Venturi Mask 8.0 40 02/27/18 17:00 99.9 102 21 118/61 96 Venturi Mask 40 99.9 02/27/18 16:00 87 21 101/47 97 Venturi Mask 40 02/27/18 16:00 85 02/27/18 14:35 101/42 02/27/18 13:07 101.8 02/27/18 12:00 94 02/27/18 12:00 100.3 102 21 118/61 96 Venturi Mask 40 100.3 02/27/18 10:55 109 20 Venturi Mask 8.0 40 02/27/18 10:55 Venturi Mask 8.0 40 02/27/18 10:55 95 Venturi Mask 8.0 40 Intake and Output 02/27/18 02/28/18 19:00 07:00 Intake Total 561 ml 590 ml Output Total 600 ml Balance 561 ml -10 ml Intake Free Water 130 ml 100 ml IV Total 251 ml Tube Feeding 180 ml 490 ml Output Urine Total 600 ml # Bowel Movements 2 Objective WDWN NAD reduced breath sounds bilaterally with minimal rhonchi [id number] without MRG NABS nontender no HSM no CCE reduced LOC skin exam noted Microbiology Date/Time Source Procedure Growth Status 02/26/18 08:22 Blood Blood Culture - Preliminary NO GROWTH AFTER 24 HOURS Resulted 02/26/18 08:19 Blood Blood Culture - Preliminary NO GROWTH AFTER 24 HOURS Resulted 02/26/18 08:19 Nasal Nares MRSA Culture - Final Staphylococcus Aureus - Mrsa Complete 02/26/18 08:19 Nasal Nares Influenza Types A,B Antigen ([facility]) - Final Complete 02/26/18 08:19 Urine,Clean Catch Urine Culture - Final Enterococcus Faecalis - Vre Complete Current Medications Medications (Trade) Dose Ordered Sig/Reji Route PRN Reason Start Time Stop Time Status Last Admin Dose Admin Acetaminophen (Tylenol) 650 mg Q4H PRN RECTAL Prn Headache/Temp > 101 02/26/18 20:45 03/28/18 20:44 02/28/18 00:38 Ascorbic Acid (Vitamin C) 500 mg DAILY GT 02/27/18 09:00 03/29/18 08:59 02/28/18 08:10 Chlorhexidine Gluconate (Sheela-Hex 2%) 1 applic DAILY@1999 TOPIC 02/27/18 20:00 03/29/18 19:59 Diltiazem HCl (Cardizem) 30 mg EVERY 8 HOURS GT 02/27/18 22:28 03/29/18 22:27 02/28/18 06:22 Docusate Sodium (Colace) 100 mg TWICE A DAY NG 02/26/18 18:00 03/28/18 17:59 02/27/18 19:48 Furosemide (Lasix) 20 mg DAILY GT 02/26/18 12:00 03/28/18 11:59 02/28/18 08:11 Ipratropium [place] (Atrovent) 500 mcg Q6H PRN HHN Shortness of Breath 02/26/18 12:00 03/03/18 11:59 02/26/18 16:14 Lacosamide (Vimpat) 50 mg EVERY 12 HOURS ORAL 02/26/18 12:00 03/28/18 11:59 02/28/18 08:10 Levofloxacin (Levaquin) 500 mg DAILY ORAL 02/27/18 11:30 03/06/18 11:29 02/28/18 08:11 Levothyroxine Sodium (Synthroid) 100 mcg DAILY GT 02/27/18 09:00 03/29/18 08:59 02/28/18 09:19 Magnesium Hydroxide (Mom) 30 ml DAILY PRN GT Constipation 02/26/18 12:00 03/28/18 11:59 Metoclopramide HCl (Reglan) 10 mg EVERY 8 HOURS GT 02/26/18 14:00 03/28/18 13:59 02/28/18 06:22 Rivaroxaban (Xarelto) 15 mg DAILY GT 02/28/18 09:00 03/30/18 08:59 02/28/18 08:11 Valproic Acid (Depakene) 1,000 mg EVERY 12 HOURS NG 02/26/18 13:15 03/28/18 13:14 02/28/18 08:11 Vancomycin HCl (Vanco rx to dose) 1 ea DAILY PRN MISC Per rx protocol 02/26/18 13:15 03/28/18 13:14 Vancomycin HCl/ Dextrose 250 ml @ 125 mls/hr Q24H IVPB 02/27/18 08:00 03/04/18 23:59 02/28/18 08:12 Steve Baker MD February 28, 2018 10:20
[2018-02-28] MEDS: dilTIAZem HCl 60mg tab GT SCH ×2 (12:15→18:00)
--- NOTE | 2018-02-28 13:22 | Infectious Diseases Prog Note ---
Assessment/Plan Assessment/Plan A: Sepsis Pneumonia UTI GT site infection Anemia MS MRSA & VRE colonization P: Continue Vancomycin & Levaquin Add Azactam Subjective ROS Limited/Unobtainable: Yes Constitutional: Reports: fever Allergies: Coded Allergies: CEFTRIAXONE (Verified Allergy, Unknown, 03/31/17) PENICILLINS (Verified Allergy, Unknown, 03/31/17) SULFA (SULFONAMIDE ANTIBIOTICS) (Verified Allergy, Unknown, 03/31/17) TAZOBACTAM (Verified Allergy, Unknown, 03/31/17) Uncoded Allergies: SULFA ANTIBIOTICS (Allergy, Unknown, 02/26/18) Objective Vital Signs Last 24 Hour Vital Signs Date Time Temp Pulse Resp B/P (MAP) Pulse Ox O2 Delivery O2 Flow Rate FiO2 02/28/18 12:16 102.1 02/28/18 12:15 102 130/45 02/28/18 12:00 102 02/28/18 12:00 102.4 103 20 130/45 98 Venturi Mask 40 102.4 02/28/18 08:00 96 02/28/18 08:00 100.2 104 20 127/48 96 Venturi Mask 40 100.2 02/28/18 07:55 102 20 Venturi Mask 8.0 40 02/28/18 07:55 96 Venturi Mask 8.0 40 02/28/18 07:55 Venturi Mask 8.0 40 02/28/18 06:22 97 109/49 02/28/18 04:00 97 02/28/18 04:00 99.3 96 20 109/49 96 Venturi Mask 40 99.3 02/28/18 01:08 99.7 02/28/18 00:38 113 132/69 02/28/18 00:38 101.0 02/28/18 00:00 109 02/28/18 00:00 101.2 113 19 132/69 93 Venturi Mask 40 101.2 02/27/18 21:25 114/58 02/27/18 20:00 97.9 88 20 114/58 93 Venturi Mask 40 97.9 02/27/18 20:00 85 02/27/18 18:58 86 20 Venturi Mask 8.0 40 02/27/18 18:58 96 Venturi Mask 8.0 40 02/27/18 18:58 Venturi Mask 8.0 40 02/27/18 17:00 99.9 102 21 118/61 96 Venturi Mask 40 99.9 02/27/18 16:00 87 21 101/47 97 Venturi Mask 40 02/27/18 16:00 85 02/27/18 14:35 101/42 Height (Feet): 5 Height (Inches): 2.00 Weight (Pounds): 220 General Appearance: other - obese HEENT: mucous membranes moist Respiratory/Chest: lungs clear, other - O@ by mask Cardiovascular: tachycardia Abdomen: soft, non tender, other - GT feeding Extremities: other - edema more in left leg Neurologic/Psychiatric: aphasia Microbiology Date/Time Source Procedure Growth Status 02/26/18 08:22 Blood Blood Culture - Preliminary NO GROWTH AFTER 24 HOURS Resulted 02/26/18 08:19 Blood Blood Culture - Preliminary NO GROWTH AFTER 24 HOURS Resulted 02/26/18 08:19 Nasal Nares MRSA Culture - Final Staphylococcus Aureus - Mrsa Complete 02/26/18 08:19 Nasal Nares Influenza Types A,B Antigen ([facility]) - Final Complete 02/26/18 08:19 Urine,Clean Catch Urine Culture - Final Enterococcus Faecalis - Vre Complete Current Medications Medications (Trade) Dose Ordered Sig/Reji Route PRN Reason Start Time Stop Time Status Last Admin Dose Admin Acetaminophen (Tylenol) 650 mg Q4H PRN RECTAL Prn Headache/Temp > 101 02/26/18 20:45 03/28/18 20:44 02/28/18 12:16 Ascorbic Acid (Vitamin C) 500 mg DAILY GT 02/27/18 09:00 03/29/18 08:59 02/28/18 08:10 Chlorhexidine Gluconate (Sheela-Hex 2%) 1 applic DAILY@1999 TOPIC 02/27/18 20:00 03/29/18 19:59 Diltiazem HCl (Cardizem) 60 mg EVERY 6 HOURS GT 02/28/18 12:00 03/30/18 11:59 02/28/18 12:15 Docusate Sodium (Colace) 100 mg TWICE A DAY NG 02/26/18 18:00 03/28/18 17:59 02/27/18 19:48 Furosemide (Lasix) 20 mg DAILY GT 02/26/18 12:00 03/28/18 11:59 02/28/18 08:11 Ipratropium [place] (Atrovent) 500 mcg Q6H PRN HHN Shortness of Breath 02/26/18 12:00 03/03/18 11:59 02/26/18 16:14 Lacosamide (Vimpat) 50 mg EVERY 12 HOURS ORAL 02/26/18 12:00 03/28/18 11:59 02/28/18 08:10 Levofloxacin (Levaquin) 500 mg DAILY ORAL 02/27/18 11:30 03/06/18 11:29 02/28/18 08:11 Levothyroxine Sodium (Synthroid) 100 mcg DAILY GT 02/27/18 09:00 03/29/18 08:59 02/28/18 09:19 Magnesium Hydroxide (Mom) 30 ml DAILY PRN GT Constipation 02/26/18 12:00 03/28/18 11:59 Metoclopramide HCl (Reglan) 10 mg EVERY 8 HOURS GT 02/26/18 14:00 03/28/18 13:59 02/28/18 06:22 Rivaroxaban (Xarelto) 15 mg DAILY GT 02/28/18 09:00 03/30/18 08:59 02/28/18 08:11 Valproic Acid (Depakene) 1,000 mg EVERY 12 HOURS NG 02/26/18 13:15 03/28/18 13:14 02/28/18 08:11 Vancomycin HCl (Vanco rx to dose) 1 ea DAILY PRN MISC Per rx protocol 02/26/18 13:15 03/28/18 13:14 Vancomycin HCl/ Dextrose 250 ml @ 125 mls/hr Q24H IVPB 02/27/18 08:00 03/04/18 23:59 02/28/18 08:12 PARDEEP IRVING February 28, 2018 13:22
[2018-02-28] MEDS ORDERED: Aztreonam Inj 1 GM in D5W 55 ML IVPB SCH (14:00)
[2018-02-28] MEDS ORDERED: Lidocaine 1% Plain 30 ml INJ ONE (14:00)
[2018-02-28] MEDS ORDERED: Heparin 2000 units/Ns 1000ml INJ ONE (14:00)
[2018-02-28] MEDS: Dyna-Hex 2% Top Sol 2oz TOPIC SCH (19:57)
[2018-02-28] MEDS ORDERED: Acetaminophen 650 MG SUPP RECTAL PRN (21:15)
[2018-02-28] MEDS ORDERED: Ipratropium 0.02% Inh Soln 2.5ml UD HHN PRN (21:15)
[2018-02-28] MEDS: Aztreonam Inj 1 GM in D5W 55 ML IVPB SCH ×2 (22:00→22:26)
[2018-03-01] VITALS: BP 113/46
--- NOTE | 2018-03-01 00:45 | Progress Note ---
DATE: 02/28/2018 CARDIOLOGY PROGRESS NOTE SUBJECTIVE: The patient has congestion and difficulty with mobilizing secretions. She remains on antibiotics. Monitored rhythm sinus. Rare episodes of supraventricular tachyarrhythmias and paroxysmal atrial fibrillation that are self limited. OBJECTIVE: VITAL SIGNS: Temperature max 101.2, blood pressure 127/88, pulse 104, and respirations 20. LUNGS: Bilateral breath sounds with rhonchi and rales. HEART: Regular rhythm and rate. Normal S1, S2 with a fourth heart sound. ABDOMEN: Soft. G-tube intact. EXTREMITIES: Contractures and edema. LABORATORY DATA: No new labs today. IMPRESSION: 1. Paroxysmal supraventricular tachyarrhythmias. 2. Chronic diastolic congestive heart failure with acute component. 3. Sepsis due to pneumonia and urinary tract infection as well as G-tube site infection. 4. Chronic anemia. 5. Quadriparesis. 6. Multiple sclerosis. 7. Severe protein-calorie malnutrition. PLAN: 1. Antimicrobials. 2. Bronchodilators and respiratory hygiene. 3. Diltiazem added and will be titrated. 4. Monitor volume status and trend natriuretic peptide assay with diuresis to be ordered based on clinical parameters. 5. Nutrition with protein supplement by feeding tube. Nick Gilbert M.D. DR: DEMARCUS JOB#: [id number] CC:
[2018-03-01 04:00] VITALS: BP 130/53
[2018-03-01] MEDS: Metoclopramide 10mg/10ml Liq GT SCH ×3 (05:18→21:11)
[2018-03-01] MEDS: dilTIAZem HCl 60mg tab GT SCH ×4 (05:19→17:27)
[2018-03-01] MEDS: Aztreonam Inj 1 GM in D5W 55 ML IVPB SCH (05:20)
[2018-03-01 07:47] LABS: BASOPHILS % (AUTO) 0.7 % (0.0-2.0); EOSINOPHILS % (AUTO) 0.9 % (0.0-3.0); HEMATOCRIT 29.9 % (37.0-47.0); LYMPHOCYTES % (AUTO) 28.1 % (20.0-45.0); MEAN CORPUSCULAR VOLUME 101 FL (80-99); MONOCYTES % (AUTO) 5.2 % (1.0-10.0); NEUTROPHILS % (AUTO) 65.1 % (45.0-75.0); PLATELET COUNT 241 K/UL (150-450); RED BLOOD COUNT 2.96 M/UL (4.20-5.40); WHITE BLOOD COUNT 3.6 K/UL (4.8-10.8)
--- NOTE | 2018-03-01 07:51 | General Progress Note ---
Assessment/Plan Problem List: (1) Seizure disorder ICD Codes: G40.909 - Epilepsy, unspecified, not intractable, without status epilepticus SNOMED: 609293771 (2) Anemia ICD Codes: D64.9 - Anemia, unspecified SNOMED: 545989669 (3) G tube feedings ICD Codes: Z93.1 - Gastrostomy status SNOMED: 551033109, 544505236 (4) Fever ICD Codes: R50.9 - Fever, unspecified SNOMED: 967341360 (5) Pyelonephritis ICD Codes: N12 - Tubulo-interstitial nephritis, not specified as acute or chronic SNOMED: 83735842 (6) Malfunction of gastrostomy tube ICD Codes: K94.23 - Gastrostomy malfunction SNOMED: 174232064 (7) Sepsis ICD Codes: A41.9 - Sepsis, unspecified organism SNOMED: 04236133 Status: stable Assessment/Plan iv abx follow up cultures resp rx o2 gt feeds as tolerated monitor for leakage from gt eeg sz rx skin care sz rx dc planning tomorrow if stable Subjective ROS Limited/Unobtainable: Yes Constitutional: Reports: malaise, weakness HEENT: Reports: no symptoms Cardiovascular: Reports: no symptoms Respiratory: Reports: cough Gastrointestinal/Abdominal: Reports: difficulty swallowing Genitourinary: Reports: no symptoms Neurologic/Psychiatric: Reports: no symptoms Endocrine: Reports: no symptoms Hematologic/Lymphatic: Reports: no symptoms Allergies: Coded Allergies: CEFTRIAXONE (Verified Allergy, Unknown, 03/31/17) PENICILLINS (Verified Allergy, Unknown, 03/31/17) SULFA (SULFONAMIDE ANTIBIOTICS) (Verified Allergy, Unknown, 03/31/17) TAZOBACTAM (Verified Allergy, Unknown, 03/31/17) Uncoded Allergies: SULFA ANTIBIOTICS (Allergy, Unknown, 02/26/18) Subjective no events. better. less congested. no leaking from gt. no szs. labs pending. remains on iv abx. Objective Last 24 Hour Vital Signs Date Time Temp Pulse Resp B/P (MAP) Pulse Ox O2 Delivery O2 Flow Rate FiO2 03/01/18 05:19 71 130/53 03/01/18 04:00 98.4 88 20 130/53 89 Venturi Mask 40 98.4 03/01/18 04:00 71 03/01/18 00:00 83 03/01/18 00:00 77 113/46 03/01/18 00:00 97.8 77 20 113/46 96 Venturi Mask 40 97.8 02/28/18 23:55 77 88/43 02/28/18 21:30 98.0 82 20 123/50 92 Venturi Mask 40 98.0 02/28/18 20:00 79 02/28/18 20:00 73 02/28/18 20:00 77 20 Venturi Mask 8.0 40 02/28/18 20:00 100 Venturi Mask 8.0 40 02/28/18 20:00 98.8 100 22 140/80 99 Venturi Mask 40 98.8 02/28/18 20:00 Venturi Mask 8.0 40 02/28/18 18:00 94 111/42 02/28/18 16:36 99.0 94 22 111/42 93 Venturi Mask 40 99.0 02/28/18 16:00 88 02/28/18 12:50 100.9 02/28/18 12:16 102.1 02/28/18 12:15 102 130/45 02/28/18 12:00 102 02/28/18 12:00 102.4 103 20 130/45 98 Venturi Mask 40 102.4 02/28/18 08:00 96 02/28/18 08:00 100.2 104 20 127/48 96 Venturi Mask 40 100.2 02/28/18 07:55 102 20 Venturi Mask 8.0 40 02/28/18 07:55 96 Venturi Mask 8.0 40 02/28/18 07:55 Venturi Mask 8.0 40 Intake and Output 02/28/18 03/01/18 19:00 07:00 Intake Total 465 ml 815 ml Output Total 400 ml 202 ml Balance 65 ml 613 ml Intake Free Water 50 ml 100 ml IV Total 305 ml 55 ml Tube Feeding 110 ml 660 ml Output Urine Total 400 ml 202 ml Laboratory Tests 03/01/18 07:00: White Blood Count [Pending], Red Blood Count [Pending], Hemoglobin [Pending], Hematocrit [Pending], Mean Corpuscular Volume [Pending], Mean Corpuscular Hemoglobin [Pending], Mean Corpuscular Hemoglobin Concent [Pending], Red Cell Distribution Width [Pending], Platelet Count [Pending], Mean Platelet Volume [ Pending], Neutrophils (%) (Auto) [Pending], Lymphocytes (%) (Auto) [Pending], Monocytes (%) (Auto) [Pending], Eosinophils (%) (Auto) [Pending], Basophils (%) (Auto) [Pending], Sodium Level [Pending], Potassium Level [Pending], Chloride Level [Pending], Carbon Dioxide Level [Pending], Blood Urea Nitrogen [Pending], Creatinine [Pending], Estimat Glomerular Filtration Rate [Pending], Glucose Level [Pending], Calcium Level [Pending], Magnesium Level [Pending], Total Bilirubin [Pending], Aspartate Amino Transf (AST/SGOT) [Pending], Alanine Aminotransferase (ALT/SGPT) [Pending], Alkaline Phosphatase [Pending], Pro-B- Type Natriuretic Peptide [Pending], Total Protein [Pending], Albumin [Pending], Globulin [Pending], Vancomycin Level Trough [Pending] Height (Feet): 5 Height (Inches): 2.00 Weight (Pounds): 220 Objective General Appearance: WD/WN, lethargic, confused Neck: supple Cardiovascular: normal rate, regular rhythm Respiratory/Chest: rhonchi - bilaterally Abdomen: normal bowel sounds, non tender, soft, no organomegaly Edema: no edema noted Arm (L), no edema noted Arm (R), no edema noted Leg (L), no edema noted Leg (R), no edema noted Pedal (L), no edema noted Pedal (R), no edema noted Generalized Neurologic: unresponsive, aphasia BREANNE SORIA March 01, 2018 07:50
[2018-03-01 08:00] VITALS: BP 144/56
[2018-03-01] MEDS ORDERED: Vancomycin 1.5gm/D5W 250ml 250 ML IVPB SCH (08:00)
[2018-03-01 08:09] LABS: ALANINE AMINOTRANSFERASE 7 U/L (12-78); ALBUMIN 1.8 G/DL (3.4-5.0); ALBUMIN/GLOBULIN RATIO 0.3 (1.0-2.7); ALKALINE PHOSPHATASE 52 U/L (46-116); ANION GAP 2 mmol/L (5-15); ASPARTATE AMINO TRANSFERASE 15 U/L (15-37); BILIRUBIN,TOTAL 0.2 MG/DL (0.2-1.0); BLOOD UREA NITROGEN 27 mg/dL (7-18); CALCIUM 9.4 MG/DL (8.5-10.1); CARBON DIOXIDE 35 MMOL/L (21-32); CHLORIDE 107 MMOL/L (98-107); CREATININE 0.7 MG/DL (0.55-1.30); POTASSIUM 3.9 MMOL/L (3.5-5.1); SODIUM 144 MMOL/L (136-145)
--- NOTE | 2018-03-01 08:11 | Pulmonology Progress Note ---
Assessment/Plan Assessment/Plan IMPRESSION fever congestion aspiration multiple allergies CAD CVA multiple sclerosis pneumonia possible effusion PLAN care noted taper antibiotics monitor imaging respiratory care as outlined fever work up oxygen taper suction as needed aspiration precautions dc planning impression, plan, and exam edited and reviewed in detail care discussed with RN Subjective ROS Limited/Unobtainable: Yes Allergies: Coded Allergies: CEFTRIAXONE (Verified Allergy, Unknown, 03/31/17) PENICILLINS (Verified Allergy, Unknown, 03/31/17) SULFA (SULFONAMIDE ANTIBIOTICS) (Verified Allergy, Unknown, 03/31/17) TAZOBACTAM (Verified Allergy, Unknown, 03/31/17) Uncoded Allergies: SULFA ANTIBIOTICS (Allergy, Unknown, 02/26/18) Subjective reviewed events overnight on antibiotics dc plan noted Objective Last 24 Hour Vital Signs Date Time Temp Pulse Resp B/P (MAP) Pulse Ox O2 Delivery O2 Flow Rate FiO2 03/01/18 05:19 71 130/53 03/01/18 04:00 98.4 88 20 130/53 89 Venturi Mask 40 98.4 03/01/18 04:00 71 03/01/18 00:00 83 03/01/18 00:00 77 113/46 03/01/18 00:00 97.8 77 20 113/46 96 Venturi Mask 40 97.8 02/28/18 23:55 77 88/43 02/28/18 21:30 98.0 82 20 123/50 92 Venturi Mask 40 98.0 02/28/18 20:00 79 02/28/18 20:00 73 02/28/18 20:00 77 20 Venturi Mask 8.0 40 02/28/18 20:00 100 Venturi Mask 8.0 40 02/28/18 20:00 98.8 100 22 140/80 99 Venturi Mask 40 98.8 02/28/18 20:00 Venturi Mask 8.0 40 02/28/18 18:00 94 111/42 02/28/18 16:36 99.0 94 22 111/42 93 Venturi Mask 40 99.0 02/28/18 16:00 88 02/28/18 12:50 100.9 02/28/18 12:16 102.1 02/28/18 12:15 102 130/45 02/28/18 12:00 102 02/28/18 12:00 102.4 103 20 130/45 98 Venturi Mask 40 102.4 Intake and Output 02/28/18 03/01/18 19:00 07:00 Intake Total 465 ml 815 ml Output Total 400 ml 202 ml Balance 65 ml 613 ml Intake Free Water 50 ml 100 ml IV Total 305 ml 55 ml Tube Feeding 110 ml 660 ml Output Urine Total 400 ml 202 ml Objective WDWN NAD stable breath sounds bilaterally with resolved rhonchi [id number] without MRG NABS nontender no HSM no CCE reduced LOC skin exam noted Microbiology Date/Time Source Procedure Growth Status 02/26/18 08:22 Blood Blood Culture - Preliminary NO GROWTH AFTER 48 HOURS Resulted 02/26/18 08:19 Blood Blood Culture - Preliminary NO GROWTH AFTER 48 HOURS Resulted 02/27/18 12:00 Sputum Gram Stain Pending Resulted 02/27/18 12:00 Sputum Culture - Preliminary Gram Negative Bacillus 1 Resulted 02/26/18 08:19 Nasal Nares MRSA Culture - Final Staphylococcus Aureus - Mrsa Complete 02/26/18 08:19 Nasal Nares Influenza Types A,B Antigen ([facility]) - Final Complete 02/26/18 08:19 Urine,Clean Catch Urine Culture - Final Enterococcus Faecalis - Vre Complete Laboratory Tests 03/01/18 07:00: White Blood Count 3.6L, Red Blood Count 2.96L, Hemoglobin 9.0L, Hematocrit 29.9L , Mean Corpuscular Volume 101H, Mean Corpuscular Hemoglobin 30.5, Mean Corpuscular Hemoglobin Concent 30.2L, Red Cell Distribution Width 16.0H, Platelet Count 241, Mean Platelet Volume 8.0, Neutrophils (%) (Auto) 65.1, Lymphocytes (%) (Auto) 28.1, Monocytes (%) (Auto) 5.2, Eosinophils (%) (Auto) 0.9, Basophils (%) (Auto) 0.7, Sodium Level [Pending], Potassium Level [Pending] , Chloride Level [Pending], Carbon Dioxide Level [Pending], Blood Urea Nitrogen [Pending], Creatinine [Pending], Estimat Glomerular Filtration Rate [Pending], Glucose Level [Pending], Calcium Level [Pending], Magnesium Level [Pending], Total Bilirubin [Pending], Aspartate Amino Transf (AST/SGOT) [Pending], Alanine Aminotransferase (ALT/SGPT) [Pending], Alkaline Phosphatase [Pending], Pro-B- Type Natriuretic Peptide [Pending], Total Protein [Pending], Albumin [Pending], Globulin [Pending], Vancomycin Level Trough [Pending] Current Medications Medications (Trade) Dose Ordered Sig/Reji Route PRN Reason Start Time Stop Time Status Last Admin Dose Admin Acetaminophen (Tylenol) 650 mg Q4H PRN RECTAL Prn Headache/Temp > 101 02/28/18 21:15 03/30/18 21:14 Ascorbic Acid (Vitamin C) 500 mg DAILY GT 03/01/18 09:00 03/29/18 08:59 Aztreonam 1 gm/ Dextrose 55 ml @ 110 mls/hr Q8HR IVPB 02/28/18 22:00 03/07/18 13:59 03/01/18 05:20 Chlorhexidine Gluconate (Sheela-Hex 2%) 1 applic DAILY@2000 TOPIC 03/01/18 20:00 03/29/18 19:59 Diltiazem HCl (Cardizem) 60 mg EVERY 6 HOURS GT 03/01/18 00:00 03/30/18 11:59 03/01/18 05:19 Docusate Sodium (Colace) 100 mg TWICE A DAY NG 03/01/18 09:00 03/28/18 17:59 Furosemide (Lasix) 20 mg DAILY GT 03/01/18 09:00 03/28/18 11:59 Ipratropium [place] (Atrovent) 500 mcg Q6H PRN HHN Shortness of Breath 02/28/18 21:15 03/05/18 21:14 Lacosamide (Vimpat) 50 mg EVERY 12 HOURS ORAL 03/01/18 09:00 03/28/18 11:59 Levofloxacin (Levaquin) 500 mg DAILY ORAL 03/01/18 09:00 03/06/18 11:29 Levothyroxine Sodium (Synthroid) 100 mcg DAILY GT 03/01/18 09:00 03/29/18 08:59 Magnesium Hydroxide (Mom) 30 ml DAILY PRN GT Constipation 03/01/18 09:00 03/28/18 11:59 Metoclopramide HCl (Reglan) 10 mg EVERY 8 HOURS GT 02/28/18 22:00 03/28/18 13:59 03/01/18 05:18 Rivaroxaban (Xarelto) 15 mg DAILY GT 03/01/18 09:00 03/30/18 08:59 Valproic Acid (Depakene) 1,000 mg EVERY 12 HOURS NG 03/01/18 09:00 03/28/18 13:14 Vancomycin HCl (Vanco rx to dose) 1 ea DAILY PRN MISC Per rx protocol 03/01/18 09:00 03/28/18 13:14 Vancomycin HCl/ Dextrose 250 ml @ 125 mls/hr Q24H IVPB 03/01/18 08:00 03/04/18 23:59 Steve Baker MD March 01, 2018 08:10
[2018-03-01] MEDS ORDERED: Milk of Magnesia 30ml Ud GT PRN (09:00)
[2018-03-01] MEDS ORDERED: Levofloxacin 500mg tab ORAL SCH (09:00)
[2018-03-01] MEDS: Docusate 100mg/10ml Liq NG SCH ×2 (09:16→17:26)
[2018-03-01] MEDS: Lacosamide 50mg tablet ORAL SCH ×2 (09:17→21:10)
[2018-03-01] MEDS: Valproic Acid 250mg/5ml Liquid NG SCH ×2 (09:17→21:10)
[2018-03-01] MEDS: Xarelto 15mg tab GT SCH (09:17)
[2018-03-01] MEDS: Ascorbic Acid 500mg tab GT SCH (09:18)
--- NOTE | 2018-03-01 10:39 | Infectious Diseases Prog Note ---
Assessment/Plan Assessment/Plan antibiotics : vancomycin iv, aztreonam, levoquin A 1. gram negative pneumonia 2. VRE UTI 3. GT site cellulitis 4. fever P 1. d/c vancomycin iv, aztreonam, levoquin 2. start meropenem 3. will follow up cultures Subjective ROS Limited/Unobtainable: Yes Allergies: Coded Allergies: CEFTRIAXONE (Verified Allergy, Unknown, 03/31/17) PENICILLINS (Verified Allergy, Unknown, 03/31/17) SULFA (SULFONAMIDE ANTIBIOTICS) (Verified Allergy, Unknown, 03/31/17) TAZOBACTAM (Verified Allergy, Unknown, 03/31/17) Uncoded Allergies: SULFA ANTIBIOTICS (Allergy, Unknown, 02/26/18) Objective Vital Signs Last 24 Hour Vital Signs Date Time Temp Pulse Resp B/P (MAP) Pulse Ox O2 Delivery O2 Flow Rate FiO2 03/01/18 08:00 97.4 84 20 144/56 96 Venturi Mask 40 97.4 03/01/18 05:19 71 130/53 03/01/18 04:00 98.4 88 20 130/53 89 Venturi Mask 40 98.4 03/01/18 04:00 71 03/01/18 00:00 83 03/01/18 00:00 77 113/46 03/01/18 00:00 97.8 77 20 113/46 96 Venturi Mask 40 97.8 02/28/18 23:55 77 88/43 02/28/18 21:30 98.0 82 20 123/50 92 Venturi Mask 40 98.0 02/28/18 20:00 79 02/28/18 20:00 73 02/28/18 20:00 77 20 Venturi Mask 8.0 40 02/28/18 20:00 100 Venturi Mask 8.0 40 02/28/18 20:00 98.8 100 22 140/80 99 Venturi Mask 40 98.8 02/28/18 20:00 Venturi Mask 8.0 40 02/28/18 18:00 94 111/42 02/28/18 16:36 99.0 94 22 111/42 93 Venturi Mask 40 99.0 02/28/18 16:00 88 02/28/18 12:50 100.9 02/28/18 12:16 102.1 5/14/18 12:15 102 130/45 02/28/18 12:00 102 02/28/18 12:00 102.4 103 20 130/45 98 Venturi Mask 40 102.4 Height (Feet): 5 Height (Inches): 2.00 Weight (Pounds): 220 Respiratory/Chest: lungs clear Cardiovascular: normal rate, regular rhythm, no gallop/murmur Abdomen: soft, non tender, other - GT Extremities: other - + edema Microbiology Date/Time Source Procedure Growth Status 02/27/18 12:00 Sputum Gram Stain Pending Resulted 02/27/18 12:00 Sputum Culture - Preliminary Gram Negative Bacillus 1 Resulted Laboratory Tests Test 03/01/18 07:00 White Blood Count 3.6 K/UL (4.8-10.8) L Red Blood Count 2.96 M/UL (4.20-5.40) L Hemoglobin 9.0 G/DL (12.0-16.0) L Hematocrit 29.9 % (37.0-47.0) L Mean Corpuscular Volume 101 FL (80-99) H Mean Corpuscular Hemoglobin 30.5 PG (27.0-31.0) Mean Corpuscular Hemoglobin Concent 30.2 G/DL (32.0-36.0) L Red Cell Distribution Width 16.0 % (11.6-14.8) H Platelet Count 241 K/UL (150-450) Mean Platelet Volume 8.0 FL (6.5-10.1) Neutrophils (%) (Auto) 65.1 % (45.0-75.0) Lymphocytes (%) (Auto) 28.1 % (20.0-45.0) Monocytes (%) (Auto) 5.2 % (1.0-10.0) Eosinophils (%) (Auto) 0.9 % (0.0-3.0) Basophils (%) (Auto) 0.7 % (0.0-2.0) Sodium Level 144 MMOL/L (136-145) Potassium Level 3.9 MMOL/L (3.5-5.1) Chloride Level 107 MMOL/L (98-107) Carbon Dioxide Level 35 MMOL/L (21-32) H Anion Gap 2 mmol/L (5-15) L Blood Urea Nitrogen 27 mg/dL (7-18) H Creatinine 0.7 MG/DL (0.55-1.30) Estimat Glomerular Filtration Rate mL/min (>60) Glucose Level 119 MG/DL (74-106) H Calcium Level 9.4 MG/DL (8.5-10.1) Magnesium Level 2.2 MG/DL (1.8-2.4) Total Bilirubin 0.2 MG/DL (0.2-1.0) Aspartate Amino Transf (AST/SGOT) 15 U/L (15-37) Alanine Aminotransferase (ALT/SGPT) 7 U/L (12-78) L Alkaline Phosphatase 52 U/L (46-116) Pro-B-Type Natriuretic Peptide 2977 pg/mL (0-125) H Total Protein 7.2 G/DL (6.4-8.2) Albumin 1.8 G/DL (3.4-5.0) L Globulin 5.4 g/dL Albumin/Globulin Ratio 0.3 (1.0-2.7) L Vancomycin Level Trough 15.9 ug/mL (5.0-12.0) H Current Medications Medications (Trade) Dose Ordered Sig/Reji Route PRN Reason Start Time Stop Time Status Last Admin Dose Admin Acetaminophen (Tylenol) 650 mg Q4H PRN RECTAL Prn Headache/Temp > 101 02/28/18 21:15 03/30/18 21:14 Ascorbic Acid (Vitamin C) 500 mg DAILY GT 03/01/18 09:00 03/29/18 08:59 03/01/18 09:18 Aztreonam 1 gm/ Dextrose 55 ml @ 110 mls/hr Q8HR IVPB 02/28/18 22:00 03/07/18 13:59 03/01/18 05:20 Chlorhexidine Gluconate (Sheela-Hex 2%) 1 applic DAILY@2000 TOPIC 03/01/18 20:00 03/29/18 19:59 Diltiazem HCl (Cardizem) 60 mg EVERY 6 HOURS GT 03/01/18 00:00 03/30/18 11:59 03/01/18 05:19 Docusate Sodium (Colace) 100 mg TWICE A DAY NG 03/01/18 09:00 03/28/18 17:59 03/01/18 09:16 Furosemide (Lasix) 20 mg DAILY GT 03/01/18 09:00 03/28/18 11:59 03/01/18 09:17 Ipratropium [place] (Atrovent) 500 mcg Q6H PRN HHN Shortness of Breath 02/28/18 21:15 03/05/18 21:14 Lacosamide (Vimpat) 50 mg EVERY 12 HOURS ORAL 03/01/18 09:00 03/28/18 11:59 03/01/18 09:17 Levofloxacin (Levaquin) 500 mg DAILY ORAL 03/01/18 09:00 03/06/18 11:29 03/01/18 09:17 Levothyroxine Sodium (Synthroid) 100 mcg DAILY GT 03/01/18 09:00 03/29/18 08:59 03/01/18 09:18 Magnesium Hydroxide (Mom) 30 ml DAILY PRN GT Constipation 03/01/18 09:00 03/28/18 11:59 Metoclopramide HCl (Reglan) 10 mg EVERY 8 HOURS GT 02/28/18 22:00 03/28/18 13:59 03/01/18 05:18 Rivaroxaban (Xarelto) 15 mg DAILY GT 03/01/18 09:00 03/30/18 08:59 03/01/18 09:17 Valproic Acid (Depakene) 1,000 mg EVERY 12 HOURS NG 03/01/18 09:00 03/28/18 13:14 03/01/18 09:17 Vancomycin HCl (Vanco rx to dose) 1 ea DAILY PRN MISC Per rx protocol 03/01/18 09:00 03/28/18 13:14 Vancomycin HCl/ Dextrose 250 ml @ 125 mls/hr Q24H IVPB 03/01/18 08:00 03/04/18 23:59 03/01/18 09:16 KAMRAN GUTIERREZ March 01, 2018 10:39
[2018-03-01 12:00] VITALS: BP 116/45
[2018-03-01] MEDS: Meropenem 500 MG in NS 55 ML IVPB SCH ×2 (12:29→21:11)
--- NOTE | 2018-03-01 14:44 | Diagnostic Imaging Report ---
Indications: Needs long-term IV access Technique: Ultrasound confirms patent compressible and basilic vein. Total sterile technique, including sterile probe cover and sterile gel, hat, mask,, sterile gown, large sterile drape, and preparation with 2% chlorhexidine utilized. Local anesthesia with 1% lidocaine. Under real-time ultrasound guidance, puncture basilic vein using 21-gauge needle, documented and archived, passage 0.018 guidewire under direct fluoroscopy, which was used to determine appropriate catheter length, exchange for 5 [place] peel-away sheath. 5 [place] Bard dual-lumen power PICC cut to 34 cm. It was inserted through the peel-away sheath. Peel-away sheath and guidewire removed. Catheter fixed to the skin. Both catheter ports aspirated and flushed. Patient tolerated procedure well, without immediate complication. Digital radiograph documents satisfactory catheter tip position, at the cavoatrial junction. Total fluoroscopy time 1.4 minutes. Total dose area product 54 dGycm2 Impression: Successful placement of right arm PICC under sonographic and fluoroscopic guidance, as described above.
--- NOTE | 2018-03-01 14:47 | Cardiology Report ---
APPROVED REPORT EKG Measurement Heart [id number] Normal sinus rhythm Normal ECG
[2018-03-01 16:00] VITALS: BP 122/58
[2018-03-01 20:00] VITALS: BP 142/96
[2018-03-01] MEDS ORDERED: Dyna-Hex 2% Top Sol 2oz TOPIC SCH (20:00)
[2018-03-02] VITALS: BP 135/82
--- NOTE | 2018-03-02 | Progress Note ---
DATE: 03/01/2018 CARDIOLOGY PROGRESS NOTE SUBJECTIVE: The patient has less congestion. Her G-tube site is clear. Monitored rhythm remains sinus with less episodes of atrial ectopy. The patient is status post PICC line due to poor peripheral access in the right upper extremity. OBJECTIVE: VITAL SIGNS: Blood pressure 130/53, heart rate 88, and respirations 20. LUNGS: Coarse breath sounds. Few rhonchi. HEART: Regular rhythm and rate. Normal S1, S2 with a fourth heart sound. ABDOMEN: Soft. EXTREMITIES: Contractures and trace edema. LABORATORY DATA: White count 3.6 and hemoglobin 9. Sodium is 144, potassium 3.9, BUN 27, and creatinine 0.7. Pro-natriuretic peptide 2977. IMPRESSION: 1. Multiple sclerosis. 2. Cerebrovascular disease with dementia. 3. Quadriparesis. 4. Acute on chronic diastolic congestive heart failure. 5. Pleural effusion. 6. Aspiration with pneumonia. 7. Ischemic heart disease. 8. Stable angina. 9. Hypoxia. PLAN: 1. Antimicrobials. 2. Respiratory hygiene. 3. Bronchodilators. 4. Trend natriuretic peptide assay. 5. Monitor cardiorenal parameters and volume status and adjust diuretic dosing accordingly. Nick Gilbert M.D. DR: DEMARCUS JOB#: [id number] CC:
[2018-03-02] MEDS: dilTIAZem HCl 60mg tab GT SCH ×3 (01:18→12:17)
[2018-03-02 04:00] VITALS: BP 119/54
[2018-03-02 04:35] LABS: BASOPHILS % (AUTO) 0.4 % (0.0-2.0); EOSINOPHILS % (AUTO) 1.3 % (0.0-3.0); HEMATOCRIT 30.8 % (37.0-47.0); HEMOGLOBIN 9.2 G/DL (12.0-16.0); LYMPHOCYTES % (AUTO) 21.2 % (20.0-45.0); MEAN CORPUSCULAR VOLUME 100 FL (80-99); MONOCYTES % (AUTO) 5.2 % (1.0-10.0); NEUTROPHILS % (AUTO) 71.9 % (45.0-75.0); PLATELET COUNT 246 K/UL (150-450); RED BLOOD COUNT 3.06 M/UL (4.20-5.40); RED CELL DISTRIBUTION WIDTH 15.9 % (11.6-14.8); WHITE BLOOD COUNT 4.4 K/UL (4.8-10.8)
[2018-03-02 05:13] LABS: ALANINE AMINOTRANSFERASE 8 U/L (12-78); ALBUMIN 1.8 G/DL (3.4-5.0); ALBUMIN/GLOBULIN RATIO 0.3 (1.0-2.7); ALKALINE PHOSPHATASE 52 U/L (46-116); ANION GAP 3 mmol/L (5-15); ASPARTATE AMINO TRANSFERASE 14 U/L (15-37); BILIRUBIN,TOTAL 0.2 MG/DL (0.2-1.0); BLOOD UREA NITROGEN 24 mg/dL (7-18); CALCIUM 9.3 MG/DL (8.5-10.1); CARBON DIOXIDE 38 MMOL/L (21-32); CHLORIDE 106 MMOL/L (98-107); CREATININE 0.6 MG/DL (0.55-1.30); POTASSIUM 3.5 MMOL/L (3.5-5.1); SODIUM 146 MMOL/L (136-145)
[2018-03-02] MEDS: Metoclopramide 10mg/10ml Liq GT SCH (05:20)
[2018-03-02] MEDS: Meropenem 500 MG in NS 55 ML IVPB SCH (05:21)
[2018-03-02] MEDS ORDERED: INVANZ1 GM IM (07:58)
[2018-03-02 08:00] VITALS: BP 121/49
--- NOTE | 2018-03-02 08:21 | Pulmonology Progress Note ---
Assessment/Plan Assessment/Plan IMPRESSION fever congestion aspiration multiple allergies CAD CVA multiple sclerosis pneumonia possible effusion PLAN care noted and reviewed taper antibiotics; pending final culture monitor imaging respiratory care as outlined oxygen taper suction as needed aspiration precautions dc planning to snf impression, plan, and exam edited and reviewed in detail care discussed with RN Subjective ROS Limited/Unobtainable: Yes Allergies: Coded Allergies: CEFTRIAXONE (Verified Allergy, Unknown, 03/31/17) PENICILLINS (Verified Allergy, Unknown, 03/31/17) SULFA (SULFONAMIDE ANTIBIOTICS) (Verified Allergy, Unknown, 03/31/17) TAZOBACTAM (Verified Allergy, Unknown, 03/31/17) Uncoded Allergies: SULFA ANTIBIOTICS (Allergy, Unknown, 02/26/18) Subjective reviewed events overnight on antibiotics dc plan noted poor LOC Objective Last 24 Hour Vital Signs Date Time Temp Pulse Resp B/P (MAP) Pulse Ox O2 Delivery O2 Flow Rate FiO2 03/02/18 05:20 94 143/61 03/02/18 04:00 98.5 91 20 119/54 100 Venturi Mask 40 98.5 03/02/18 04:00 87 03/02/18 01:18 72 135/82 03/02/18 00:00 76 03/02/18 00:00 97.1 72 21 135/82 98 Venturi Mask 40 97.1 03/01/18 20:32 Venturi Mask 8.0 40 03/01/18 20:32 97 Venturi Mask 8.0 40 03/01/18 20:32 55 20 Venturi Mask 8.0 40 03/01/18 20:00 98.5 70 18 142/96 98 Venturi Mask 40 98.5 03/01/18 20:00 76 03/01/18 17:27 68 122/58 03/01/18 16:00 68 03/01/18 16:00 98.0 74 18 122/58 96 Venturi Mask 40 98.0 03/01/18 12:30 85 116/45 03/01/18 12:00 86 03/01/18 12:00 98.1 85 17 116/45 94 Venturi Mask 40 98.1 Intake and Output 03/01/18 03/02/18 19:00 07:00 Intake Total 700 ml 55 ml Output Total 425 ml 180 ml Balance 275 ml -125 ml Free Water 150 ml IV Total 55 ml Tube Feeding 495 ml 55 ml Output Urine Total 425 ml 180 ml Objective WDWN NAD stable breath sounds bilaterally with resolved rhonchi [id number] without MRG NABS nontender no HSM no CCE reduced LOC skin exam noted Microbiology Date/Time Source Procedure Growth Status 02/27/18 12:00 Sputum Gram Stain - Final Resulted 02/27/18 12:00 Sputum Culture - Preliminary Providencia Stuartii Resulted Laboratory Tests 03/02/18 04:00: White Blood Count 4.4L, Red Blood Count 3.06L, Hemoglobin 9.2L, Hematocrit 30.8L , Mean Corpuscular Volume 100H, Mean Corpuscular Hemoglobin 30.1, Mean Corpuscular Hemoglobin Concent 30.0L, Red Cell Distribution Width 15.9H, Platelet Count 246, Mean Platelet Volume 8.5, Neutrophils (%) (Auto) 71.9, Lymphocytes (%) (Auto) 21.2, Monocytes (%) (Auto) 5.2, Eosinophils (%) (Auto) 1.3, Basophils (%) (Auto) 0.4, Sodium Level 146H, Potassium Level 3.5, Chloride Level 106, Carbon Dioxide Level 38H, Anion Gap 3L, Blood Urea Nitrogen 24H, Creatinine 0.6, Estimat Glomerular Filtration Rate , Glucose Level 98, Calcium Level 9.3, Total Bilirubin 0.2, Aspartate Amino Transf (AST/SGOT) 14L, Alanine Aminotransferase (ALT/SGPT) 8L, Alkaline Phosphatase 52, Total Protein 7.3, Albumin 1.8L, Globulin 5.5, Albumin/Globulin Ratio 0.3L Current Medications Medications (Trade) Dose Ordered Sig/Reji Route PRN Reason Start Time Stop Time Status Last Admin Dose Admin Acetaminophen (Tylenol) 650 mg Q4H PRN RECTAL Prn Headache/Temp > 101 02/28/18 21:15 03/30/18 21:14 Ascorbic Acid (Vitamin C) 500 mg DAILY GT 03/01/18 09:00 03/29/18 08:59 03/01/18 09:18 Chlorhexidine Gluconate (Sheela-Hex 2%) 1 applic DAILY@1999 TOPIC 03/01/18 20:00 03/29/18 19:59 03/01/18 21:10 Diltiazem HCl (Cardizem) 60 mg EVERY 6 HOURS GT 03/01/18 00:00 6/13/18 11:59 03/02/18 05:20 Docusate Sodium (Colace) 100 mg TWICE A DAY NG 03/01/18 09:00 03/28/18 17:59 03/01/18 17:26 Furosemide (Lasix) 20 mg DAILY IV 03/02/18 09:00 04/01/18 08:59 Ipratropium [place] (Atrovent) 500 mcg Q6H PRN HHN Shortness of Breath 02/28/18 21:15 03/05/18 21:14 Lacosamide (Vimpat) 50 mg EVERY 12 HOURS ORAL 03/01/18 09:00 03/28/18 11:59 03/01/18 21:10 Levothyroxine Sodium (Synthroid) 100 mcg DAILY GT 03/01/18 09:00 03/29/18 08:59 03/01/18 09:18 Magnesium Hydroxide (Mom) 30 ml DAILY PRN GT Constipation 03/01/18 09:00 03/28/18 11:59 Meropenem 500 mg/ Sodium Chloride 55 ml @ 110 mls/hr EVERY 8 HOURS IVPB 03/01/18 12:00 03/06/18 11:59 03/02/18 05:21 Metoclopramide HCl (Reglan) 10 mg EVERY 8 HOURS GT 02/28/18 22:00 03/28/18 13:59 03/02/18 05:20 Rivaroxaban (Xarelto) 15 mg DAILY GT 03/01/18 09:00 03/30/18 08:59 03/01/18 09:17 Valproic Acid (Depakene) 1,000 mg EVERY 12 HOURS NG 03/01/18 09:00 03/28/18 13:14 03/01/18 21:10 Steve Baker MD March 02, 2018 08:21
[2018-03-02] MEDS: Xarelto 15mg tab GT SCH (08:35)
[2018-03-02] MEDS: Ascorbic Acid 500mg tab GT SCH (08:35)
[2018-03-02] MEDS: Docusate 100mg/10ml Liq NG SCH (08:36)
[2018-03-02] MEDS: Valproic Acid 250mg/5ml Liquid NG SCH (08:37)
[2018-03-02] MEDS: Lacosamide 50mg tablet ORAL SCH (08:37)
[2018-03-02 12:17] VITALS: BP 123/75
--- NOTE | 2018-03-02 13:06 | Infectious Diseases Prog Note ---
Assessment/Plan Assessment/Plan A: Sepsis Pneumonia UTI with VRE GT site infection Anemia MS MRSA & VRE colonization P: Agree with discharge with Zyvox Subjective ROS Limited/Unobtainable: Yes Allergies: Coded Allergies: CEFTRIAXONE (Verified Allergy, Unknown, 03/31/17) PENICILLINS (Verified Allergy, Unknown, 03/31/17) SULFA (SULFONAMIDE ANTIBIOTICS) (Verified Allergy, Unknown, 03/31/17) TAZOBACTAM (Verified Allergy, Unknown, 03/31/17) Uncoded Allergies: SULFA ANTIBIOTICS (Allergy, Unknown, 02/26/18) Objective Vital Signs Last 24 Hour Vital Signs Date Time Temp Pulse Resp B/P (MAP) Pulse Ox O2 Delivery O2 Flow Rate FiO2 03/02/18 12:17 83 123/75 03/02/18 08:00 80 03/02/18 08:00 97.9 70 20 121/49 100 Venturi Mask 40 97.9 03/02/18 05:20 94 143/61 03/02/18 04:00 98.5 91 20 119/54 100 Venturi Mask 40 98.5 03/02/18 04:00 87 03/02/18 01:18 72 135/82 03/02/18 00:00 76 03/02/18 00:00 97.1 72 21 135/82 98 Venturi Mask 40 97.1 03/01/18 20:32 Venturi Mask 8.0 40 03/01/18 20:32 97 Venturi Mask 8.0 40 03/01/18 20:32 55 20 Venturi Mask 8.0 40 03/01/18 20:00 98.5 70 18 142/96 98 Venturi Mask 40 98.5 03/01/18 20:00 76 03/01/18 17:27 68 122/58 03/01/18 16:00 68 03/01/18 16:00 98.0 74 18 122/58 96 Venturi Mask 40 98.0 Height (Feet): 5 Height (Inches): 2.00 Weight (Pounds): 220 General Appearance: no acute distress HEENT: mucous membranes moist Respiratory/Chest: lungs clear Cardiovascular: normal rate Abdomen: soft, non tender, other - GT placement Extremities: other - edema Neurologic/Psychiatric: disoriented Microbiology Date/Time Source Procedure Growth Status 02/28/18 07:50 Abdomen Gram Stain - Final Resulted 02/28/18 07:50 Abdomen Wound Culture - Preliminary NO GROWTH AFTER 24 HOURS Resulted Laboratory Tests Test 03/02/18 04:00 White Blood Count 4.4 K/UL (4.8-10.8) L Red Blood Count 3.06 M/UL (4.20-5.40) L Hemoglobin 9.2 G/DL (12.0-16.0) L Hematocrit 30.8 % (37.0-47.0) L Mean Corpuscular Volume 100 FL (80-99) H Mean Corpuscular Hemoglobin 30.1 PG (27.0-31.0) Mean Corpuscular Hemoglobin Concent 30.0 G/DL (32.0-36.0) L Red Cell Distribution Width 15.9 % (11.6-14.8) H Platelet Count 246 K/UL (150-450) Mean Platelet Volume 8.5 FL (6.5-10.1) Neutrophils (%) (Auto) 71.9 % (45.0-75.0) Lymphocytes (%) (Auto) 21.2 % (20.0-45.0) Monocytes (%) (Auto) 5.2 % (1.0-10.0) Eosinophils (%) (Auto) 1.3 % (0.0-3.0) Basophils (%) (Auto) 0.4 % (0.0-2.0) Sodium Level 146 MMOL/L (136-145) H Potassium Level 3.5 MMOL/L (3.5-5.1) Chloride Level 106 MMOL/L (98-107) Carbon Dioxide Level 38 MMOL/L (21-32) H Anion Gap 3 mmol/L (5-15) L Blood Urea Nitrogen 24 mg/dL (7-18) H Creatinine 0.6 MG/DL (0.55-1.30) Estimat Glomerular Filtration Rate mL/min (>60) Glucose Level 98 MG/DL (74-106) Calcium Level 9.3 MG/DL (8.5-10.1) Total Bilirubin 0.2 MG/DL (0.2-1.0) Aspartate Amino Transf (AST/SGOT) 14 U/L (15-37) L Alanine Aminotransferase (ALT/SGPT) 8 U/L (12-78) L Alkaline Phosphatase 52 U/L (46-116) Total Protein 7.3 G/DL (6.4-8.2) Albumin 1.8 G/DL (3.4-5.0) L Globulin 5.5 g/dL Albumin/Globulin Ratio 0.3 (1.0-2.7) L Current Medications Medications (Trade) Dose Ordered Sig/Reji Route PRN Reason Start Time Stop Time Status Last Admin Dose Admin Acetaminophen (Tylenol) 650 mg Q4H PRN RECTAL Prn Headache/Temp > 101 02/28/18 21:15 03/30/18 21:14 Ascorbic Acid (Vitamin C) 500 mg DAILY GT 03/01/18 09:00 03/29/18 08:59 03/02/18 08:35 Chlorhexidine Gluconate (Sheela-Hex 2%) 1 applic DAILY@2000 TOPIC 03/01/18 20:00 03/29/18 19:59 03/01/18 21:10 Diltiazem HCl (Cardizem) 60 mg EVERY 6 HOURS GT 03/01/18 00:00 03/30/18 11:59 03/02/18 12:17 Docusate Sodium (Colace) 100 mg TWICE A DAY NG 03/01/18 09:00 03/28/18 17:59 03/02/18 08:36 Furosemide (Lasix) 20 mg DAILY IV 03/02/18 09:00 04/01/18 08:59 03/02/18 08:36 Ipratropium [place] (Atrovent) 500 mcg Q6H PRN HHN Shortness of Breath 02/28/18 21:15 03/05/18 21:14 Lacosamide (Vimpat) 50 mg EVERY 12 HOURS ORAL 03/01/18 09:00 03/28/18 11:59 03/02/18 08:37 Levothyroxine Sodium (Synthroid) 100 mcg DAILY GT 03/01/18 09:00 03/29/18 08:59 03/02/18 08:35 Magnesium Hydroxide (Mom) 30 ml DAILY PRN GT Constipation 03/01/18 09:00 03/28/18 11:59 Meropenem 500 mg/ Sodium Chloride 55 ml @ 110 mls/hr EVERY 8 HOURS IVPB 03/01/18 12:00 03/06/18 11:59 03/02/18 05:21 Metoclopramide HCl (Reglan) 10 mg EVERY 8 HOURS GT 02/28/18 22:00 03/28/18 13:59 03/02/18 05:20 Rivaroxaban (Xarelto) 15 mg DAILY GT 03/01/18 09:00 03/30/18 08:59 03/02/18 08:35 Valproic Acid (Depakene) 1,000 mg EVERY 12 HOURS NG 03/01/18 09:00 03/28/18 13:14 03/02/18 08:37 PARDEEP IRVING March 02, 2018 13:06
[2018-03-02] MEDS ORDERED: NS 275ml ONE (14:34)
[2018-03-02] MEDS ORDERED: Sterile Water Irrig 1000ml IRRIG ONE (14:34)
--- NOTE | 2018-03-02 15:04 | Diagnostic Imaging Report ---
Indication: Shortness of breath Technique: One view of the chest Comparison: 02/26/2018 Findings: Interim placement of a right arm PICC. Right lung and pleural space remain clear. There is and increasing large pleural effusion on the left. The heart is borderline enlarged. There is degenerative change of the left shoulder again noted Impression: Increasing large left pleural effusion, over 4 days Other findings as noted
--- NOTE | 2018-03-03 | Discharge Summary ---
DATE OF ADMISSION: 02/26/2018 DATE OF DISCHARGE: 03/02/2018 ADMITTING DIAGNOSES: 1. Pneumonia. 2. Sepsis. 3. Toxic metabolic encephalopathy. 4. History of seizure disorder. 5. Developmental delay. DISCHARGE DIAGNOSES: 1. Pneumonia. 2. Sepsis. 3. Toxic metabolic encephalopathy. 4. History of seizure disorder. 5. Developmental delay. HOSPITAL COURSE: The patient is an unfortunate female with history of chronic encephalopathy and developmental delay. She has a history of severe seizure disorder. She was transferred with complaints of congestion, cough, fevers and chills. She was diagnosed with healthcare-associated pneumonia. She received intravenous antibiotics. Cultures were followed up and antibiotics were adjusted by the ID home sales consultant. She did have issue with leaking G-tube. The G-tube was adjusted by the landscape designer and had no further leaking. On discharge, she was stable. She will be discharged on additional antibiotics for additional week. DISCHARGE MEDICATIONS: Please see discharge medication list for discharge medications. DIET: G-tube feedings. ACTIVITIES: Ad-yong. FOLLOWUP: The patient will follow up in one to two days at the care home facility. Caden Recio M.D. DR: RERE JOB#: [id number] CC:
--- NOTE | 2018-03-03 01:30 | Progress Note ---
DATE: 03/02/2018 CARDIOLOGY PROGRESS NOTE SUBJECTIVE: The patient without any distress. She continues on antibiotics. Congestion has decreased. Monitored rhythm, sinus. Rare atrial ectopics. OBJECTIVE: VITAL SIGNS: Blood pressure 143/61, pulse 94, and respiratory rate 20. NECK: Supple. LUNGS: With coarse breath sounds. No wheezing. HEART: Regular rhythm and rate. Normal S1 and S2 with a fourth heart sound. ABDOMEN: Soft. EXTREMITIES: Trace edema. Severe contractures. Distal muscle atrophy. IMPRESSION: 1. Aspiration pneumonia, improved. 2. Multiple sclerosis with quadriparesis. 3. Aspiration risk. 4. Paroxysmal atrial tachyarrhythmias, now suppressed. 5. Cerebrovascular disease with dementia. PLAN: 1. Maintain diltiazem and current cardiovascular regimen. 2. Stable for outpatient care at the [facility] facility. 3. To complete antibiotics. 4. Continue with respiratory hygiene. 5. Limit beta-agonist use in view of potential for atrial tachyarrhythmias. Nick Gilbert M.D. DR: SRIDEVI JOB#: [id number] CC:
--- NOTE | 2018-03-03 22:45 | Electroencephalogram ---
DATE OF PROCEDURE: 02/28/2018 REQUESTING PHYSICIAN: Caden Recio M.D. HISTORY: This EEG was performed on 72-year-old lady with a history of an altered mental state. She also has a prior history of seizures and thus this EEG was performed to evaluate the patient for the degree and type of cerebral dysfunction. TECHNICAL NOTE: This EEG was performed on [employer] with electrodes placed on the scalp according to the International 10-20 system. [id number] and [id number] montages were used. The EEG was technically satisfactory and was performed in the poorly responsive state. OBSERVATIONS: In the poorly responsive state, the background activity consisted of 4-5 Hz theta and 1.5-2.5 Hz delta activity. Throughout the tracing, triphasic waveforms with an anterior to posterior gradient were seen. In addition, at times these triphasics occurred in brief runs. When the patient was stimulated, no significant change in the EEG background was noted. IMPRESSION: This is an abnormal EEG characterized by. 1. Slowing of the background in the 4-5 Hz theta and 1.5-2.5 Hz delta range. 2. The presence of triphasic waveforms. 3. No reactivity to external stimulation. COMMENT: This study is consistent with an encephalopathy of a moderately severe degree with a definite toxic metabolic component as evidenced by the triphasic waveforms. Clinical correlation is recommended. Alex Mendez M.D., M.S.P.H. DR: DAPHNIE JOB#: [id number] [facility]
== END 2018-03-02 14:35 | DRG 871 ==
LOC: EDBD 07:49 → EMR 08:01 → 2W 08:11 → EDBEDREQ 08:58 → 2E 02-28 21:20
PROC: 02HV33Z Insertion of Infusion Device into Superior Vena Cava, Percutaneous Approach (ICD-10-PCS; principal; 2018-03-01)
DX: A41.9 Sepsis, unspecified organism (principal); J18.9 Pneumonia, unspecified organism; G92 Toxic encephalopathy; R53.2 Functional quadriplegia; I50.33 Acute on chronic diastolic (congestive) heart failure; E43 Unspecified severe protein-calorie malnutrition; K94.23 Gastrostomy malfunction; N39.0 Urinary tract infection, site not specified; L03.311 Cellulitis of abdominal wall; I47.1 Supraventricular tachycardia; N12 Tubulo-interstitial nephritis, not specified as acute or chronic; Z68.41 Body mass index [BMI] 40.0-44.9, adult; Z88.0 Allergy status to penicillin; Z88.2 Allergy status to sulfonamides; Z88.8 Allergy status to other drugs, medicaments and biological substances; G40.909 Epilepsy, unspecified, not intractable, without status epilepticus; F79 Unspecified intellectual disabilities; K21.9 Gastro-esophageal reflux disease without esophagitis; Z86.73 Personal history of transient ischemic attack (TIA), and cerebral infarction without residual deficits; B95.5 Unspecified streptococcus as the cause of diseases classified elsewhere; Z86.718 Personal history of other venous thrombosis and embolism; G35 Multiple sclerosis; R13.10 Dysphagia, unspecified; I48.0 Paroxysmal atrial fibrillation; I11.0 Hypertensive heart disease with heart failure; E03.9 Hypothyroidism, unspecified; F01.50 Vascular dementia, unspecified severity, without behavioral disturbance, psychotic disturbance, mood disturbance, and anxiety; I25.118 Atherosclerotic heart disease of native coronary artery with other forms of angina pectoris; R09.02 Hypoxemia; Z22.322 Carrier or suspected carrier of Methicillin resistant Staphylococcus aureus
CPT/HCPCS: 36415; 36569; 36600; 71045; 76937; 80053; 80202; 81003; 82550; 82553; 82803; 83605; 83735; 83880; 84484; 85025; 86710; 87040; 87070; 87081; 87086; 87181; 87205; 93005; 94640; 94664; 94760; 95819; 99285